=== PATIENT | female | born 1960 | race Caucasian/White ===

== ENCOUNTER 2019-11-04 07:23 | Outpatient (CLI) | payer MEDICARE, MEDICAID, SELFPAY ==
[2019-11-04 08:12] LABS: Basophils % 0.5 %; Eosinophils # 0.2 10^3/uL (0.0-0.8); Hematocrit 37.5 % (37.0-47.0); Lymphocytes # 1.3 10^3/uL (0.8-4.8); Lymphocytes % 16.4 %; Mean Corpuscular Hemoglobin 33.3 pg (28.0-34.0); Mean Corpuscular Volume 104.2 fL (81-99); Mean Platelet Volume 9.9 fL (7.4-10.4); Monocytes # 0.7 10^3/uL (0.2-0.9); Neutrophils # 5.5 10^3/uL (1.8-7.7); Neutrophils % 70.7 %; Nucleated Red Blood Cells % 0 %; Platelet Count 441 10^3/cmm (130-400); Red Cell Distribution Width 12.6 % (12.1-15.1); White Blood Count 7.8 10^3/uL (4.0-10.0)
[2019-11-04 08:19] LABS: Add Urine Culture? Yes; Bacteria Urine 2+; Bilirubin Urine Neg (NEGATIVE); Blood Urine 2+ (Negative); Glucose Urine UA Norm (Normal); Ketones Urine Negative (Negative); Leukocyte Esterase Urine 2+ (Negative); Nitrate Urine Positive (Negative); Protein Urine Trace (Negative); RBC Urine 0-4 /hpf (0-2); Specific Gravity, Urine 1.015 (1.005-1.030); Squamous Epithelial Cell Urine 0-4 (0-5); Urine Appearance Cloudy (CLEAR); Urine Color Yellow (Yellow); Urobilinogen Urine Norm (Negative); WBC Urine >100 /hpf (0-5)
[2019-11-04 08:28] LABS: Urine Creatinine 103 mg/dL (28-217)
[2019-11-04 08:30] LABS: Alanine Aminotransferase 40 U/L (0-33); Albumin Level 3.8 g/dL (3.5-5.2); Alkaline Phosphatase 77 IU/L (35-105); Amylase 150 U/L (28-100); Anion Gap 15.1 (5-19); Aspartate Amino Transferase 44 U/L (0-32); Blood Urea Nitrogen 27 mg/dL (6-20); Calcium 9.5 mg/dL (8.5-10.5); Carbon Dioxide 27 mmol/L (22-29); Chloride 101 mmol/L (98-107); Globulin 3.7 g/dL (1.3-4.6); Glomerular Filtration Rate 42.1 mL/min (90-130); Glucose 111 mg/dL (74-109); Lipase 53 U/L (13-60); Magnesium 1.9 mg/dL (1.7-2.3); Phosphorus 3.5 mg/dL (2.5-4.5); Potassium 4.1 mmol/L (3.5-5.1); Sodium 139 mmol/L (136-145); Total Bilirubin 0.3 mg/dL (0.15-1.2); Total Protein 7.5 g/dL (6.6-8.7); Uric Acid 5.2 mg/dL (2.4-5.7)
[2019-11-04 08:51] LABS: UPRO/UCREAT Ratio 0.35 mg/mg CR; Urine Protein Random 36 mg/dL
[2019-11-04 09:01] LABS: Estmated Average Glucose 100; Hemoglobin A1C 5.1 % (4.0-6.0)
== END 2019-11-04 07:24 | disposition home or self-care (01) ==
LOC: LAB 07:30
PROVIDERS: Visit Provider Specialist
DX: D89.9 Disorder involving the immune mechanism, unspecified (principal); Z94.0 Kidney transplant status; Z94.83 Pancreas transplant status; Z79.899 Other long term (current) drug therapy
CPT/HCPCS: 36415; 80053; 80197; 81001; 82150; 82570; 83036; 83690; 83735; 84100; 84156; 84550; 85025; 87077; 87086; 87186

== ENCOUNTER 2020-01-09 07:12 | Outpatient (CLI) | payer MEDICARE, MEDICAID, SELFPAY ==
[2020-01-09 08:09] LABS: Basophils # 0.1 10^3/uL (0.0-0.1); Basophils % 0.8 %; Eosinophils # 0.2 10^3/uL (0.0-0.8); Eosinophils % 3.4 %; Hematocrit 37.8 % (37.0-47.0); Lymphocytes # 1.4 10^3/uL (0.8-4.8); Lymphocytes % 22.6 %; Mean Corpuscular HGB Conc 31.7 g/dL (30.0-36.0); Mean Corpuscular Hemoglobin 32.4 pg (28.0-34.0); Mean Corpuscular Volume 102.2 fL (81-99); Mean Platelet Volume 10.9 fL (7.4-10.4); Monocytes # 0.6 10^3/uL (0.2-0.9); Monocytes % 9.7 %; Neutrophils % 63.3 %; Nucleated Red Blood Cells % 0 %; Platelet Count 323 10^3/cmm (130-400); Red Cell Distribution Width 14.1 % (12.1-15.1); White Blood Count 6.4 10^3/uL (4.0-10.0)
[2020-01-09 08:12] LABS: Alanine Aminotransferase 48 U/L (0-33); Alkaline Phosphatase 67 IU/L (35-105); Amylase 151 U/L (28-100); Anion Gap 10.6 (5-19); Aspartate Amino Transferase 54 U/L (0-32); Blood Urea Nitrogen 23 mg/dL (6-20); Calcium 9.5 mg/dL (8.5-10.5); Carbon Dioxide 31 mmol/L (22-29); Chloride 103 mmol/L (98-107); Globulin 3.3 g/dL (1.3-4.6); Glomerular Filtration Rate 56.9 mL/min (90-130); Glucose 96 mg/dL (65-115); Lipase 95 U/L (13-60); Osmolality Calculated 289 mOsm/kg (285-295); Phosphorus 3.3 mg/dL (2.5-4.5); Potassium 3.6 mmol/L (3.5-5.1); Sodium 141 mmol/L (136-145); Total Bilirubin 0.3 mg/dL (0.15-1.2); Total Protein 7.3 g/dL (6.6-8.7); Uric Acid 3.5 mg/dL (2.4-5.7)
[2020-01-09 08:14] LABS: Estmated Average Glucose 97
[2020-01-09 08:25] LABS: Urine Creatinine 39 mg/dL (28-217)
[2020-01-09 08:40] LABS: UPRO/UCREAT Ratio 0.64 mg/mg CR; Urine Protein Random 25 mg/dL
[2020-01-09 08:47] LABS: Bilirubin Urine Neg (NEGATIVE); Blood Urine Neg (Negative); Glucose Urine UA Norm (Normal); Ketones Urine Negative (Negative); Leukocyte Esterase Urine Negative (Negative); Nitrate Urine Negative (Negative); Protein Urine Neg (Negative); Specific Gravity, Urine 1.005 (1.005-1.030); Squamous Epithelial Cell Urine 0-4 (0-5); Urine Appearance Clear (CLEAR); Urine Color Yellow (Yellow); Urobilinogen Urine Norm (Negative); WBC Urine RARE /hpf (0-5); pH Urine 7 (5-7)
[2020-01-09 08:48] LABS: Add Urine Culture? No
== END 2020-01-09 07:13 | disposition home or self-care (01) ==
LOC: LAB 07:16
PROVIDERS: Visit Provider Specialist
DX: D89.9 Disorder involving the immune mechanism, unspecified (principal); Z94.0 Kidney transplant status; Z94.83 Pancreas transplant status; Z79.899 Other long term (current) drug therapy
CPT/HCPCS: 36415; 80053; 80197; 81001; 82150; 82570; 83036; 83690; 83735; 84100; 84156; 84550; 85025

== ENCOUNTER 2020-01-23 07:15 | Outpatient (CLI) | payer MEDICARE, MEDICAID, SELFPAY ==
[2020-01-23 07:52] LABS: Hematocrit 39.7 % (37.0-47.0); Hemoglobin 12.6 g/dL (11.5-15.3); Mean Corpuscular HGB Conc 31.7 g/dL (30.0-36.0); Mean Corpuscular Hemoglobin 32.6 pg (28.0-34.0); Mean Corpuscular Volume 102.6 fL (81-99); Mean Platelet Volume 10.5 fL (7.4-10.4); Platelet Count 315 10^3/cmm (130-400); Red Blood Count 3.87 10^6/uL (4.1-5.3); Red Cell Distribution Width 13.9 % (12.1-15.1); White Blood Count 5.7 10^3/uL (4.0-10.0)
[2020-01-23 08:04] LABS: Alanine Aminotransferase 60 U/L (0-33); Albumin Level 4.1 g/dL (3.5-5.2); Alkaline Phosphatase 72 IU/L (35-105); Amylase 169 U/L (28-100); Anion Gap 12.8 (5-19); Aspartate Amino Transferase 59 U/L (0-32); Blood Urea Nitrogen 27 mg/dL (6-20); Calcium 9.3 mg/dL (8.5-10.5); Carbon Dioxide 28 mmol/L (22-29); Chloride 102 mmol/L (98-107); Glomerular Filtration Rate 46.1 mL/min (90-130); Glucose 97 mg/dL (65-115); Lipase 100 U/L (13-60); Magnesium 2.3 mg/dL (1.7-2.3); Osmolality Calculated 285 mOsm/kg (285-295); Potassium 3.8 mmol/L (3.5-5.1); Sodium 139 mmol/L (136-145); Total Bilirubin 0.4 mg/dL (0.15-1.2); Total Protein 7.1 g/dL (6.6-8.7); Uric Acid 4.2 mg/dL (2.4-5.7)
[2020-01-23 08:13] LABS: Urine Creatinine 20 mg/dL (28-217); Urine Protein Random 12 mg/dL
[2020-01-23 08:34] LABS: Estmated Average Glucose 94; Hemoglobin A1C 4.9 % (4.0-6.0)
[2020-01-23 08:42] LABS: Bilirubin Urine Neg (NEGATIVE); Blood Urine Neg (Negative); Glucose Urine UA Norm (Normal); Ketones Urine Negative (Negative); Leukocyte Esterase Urine Negative (Negative); Nitrate Urine Negative (Negative); Protein Urine Neg (Negative); Specific Gravity, Urine 1.005 (1.005-1.030); Squamous Epithelial Cell Urine RARE (0-5); Urine Appearance Clear (CLEAR); Urine Color Colorless (Yellow); Urobilinogen Urine Norm (Negative); pH Urine 6.5 (5-7)
[2020-01-23 08:43] LABS: Add Urine Culture? No; Bacteria Urine TRACE
[2020-01-23 09:02] LABS: Absolute Segmented Neutrophil 3.3 10/cmm (1.6-7.1); Band Neutrophils Absolute 0.2 10^3/cmm (0.0-1.2); Eosinophils 1 %; Lymphocytes 32 %; Monocytes Absolute 0.3 10^3/cmm (0.1-0.6); Platelet Estimate Normal (Normal); Segmented Neutrophils 59 %; Total Cells Counted 100 (0-100)
== END 2020-01-23 07:16 | disposition home or self-care (01) ==
LOC: LAB 07:16
PROVIDERS: Visit Provider Specialist
DX: D89.9 Disorder involving the immune mechanism, unspecified (principal); Z94.0 Kidney transplant status; Z94.83 Pancreas transplant status; Z79.899 Other long term (current) drug therapy
CPT/HCPCS: 80053; 80197; 81001; 82150; 82570; 83036; 83690; 83735; 84100; 84156; 84550; 85007; 85027

== ENCOUNTER 2020-02-28 07:11 | Outpatient (CLI) | payer MEDICARE, MEDICAID, SELFPAY ==
[2020-02-28 07:54] LABS: Add Urine Microscopic? NO
[2020-02-28 07:56] LABS: Hematocrit 38.8 % (37.0-47.0); Hemoglobin 12.6 g/dL (11.5-15.3); Mean Corpuscular HGB Conc 32.5 g/dL (30.0-36.0); Mean Corpuscular Hemoglobin 32.8 pg (28.0-34.0); Mean Platelet Volume 10.5 fL (7.4-10.4); Platelet Count 312 10^3/cmm (130-400); Red Blood Count 3.84 10^6/uL (4.1-5.3); Red Cell Distribution Width 13.1 % (12.1-15.1); White Blood Count 5.4 10^3/uL (4.0-10.0)
[2020-02-28 08:29] LABS: Absolute Eosinophils 0.4 10^3/cmm (0.0-0.7); Absolute Segmented Neutrophil 2.3 10/cmm (1.6-7.1); Band Neutrophils Absolute 0.3 10^3/cmm (0.0-1.2); Basophils Absolute 0.1 10^3/cmm (0.0-0.2); Eosinophils 8 %; Lymphocytes 36 %; Monocytes Absolute 0.3 10^3/cmm (0.1-0.6); Platelet Estimate Normal (Normal); Segmented Neutrophils 43 %; Total Cells Counted 100 (0-100)
[2020-02-28 08:29] LABS: Add Urine Culture? No; Bacteria Urine TRACE; Bilirubin Urine Neg (NEGATIVE); Blood Urine Neg (Negative); Glucose Urine UA Norm (Normal); Ketones Urine Negative (Negative); Leukocyte Esterase Urine Negative (Negative); Nitrate Urine Negative (Negative); Protein Urine Neg (Negative); Urine Appearance Clear (CLEAR); Urine Color Straw (Yellow); Urobilinogen Urine Norm (Negative)
[2020-02-28 08:34] LABS: Urine Creatinine 40 mg/dL (28-217); Urine Protein Random 18 mg/dL
[2020-02-28 08:36] LABS: UPRO/UCREAT Ratio 0.45 mg/mg CR
[2020-02-28 08:36] LABS: Alanine Aminotransferase 83 U/L (0-33); Alkaline Phosphatase 86 IU/L (35-105); Amylase 229 U/L (28-100); Anion Gap 15.2 (5-19); Aspartate Amino Transferase 76 U/L (0-32); Blood Urea Nitrogen 33 mg/dL (6-20); Calcium 10.3 mg/dL (8.5-10.5); Carbon Dioxide 26 mmol/L (22-29); Chloride 103 mmol/L (98-107); Globulin 3.6 g/dL (1.3-4.6); Glomerular Filtration Rate 46.1 mL/min (90-130); Glucose 95 mg/dL (65-115); Lipase 175 U/L (13-60); Magnesium 1.9 mg/dL (1.7-2.3); Osmolality Calculated 287 mOsm/kg (285-295); Phosphorus 4.3 mg/dL (2.5-4.5); Potassium 4.2 mmol/L (3.5-5.1); Sodium 140 mmol/L (136-145); Total Bilirubin 0.3 mg/dL (0.15-1.2); Total Protein 7.6 g/dL (6.6-8.7); Uric Acid 4.9 mg/dL (2.4-5.7)
[2020-02-28 08:42] LABS: Estmated Average Glucose 117; Hemoglobin A1C 5.7 % (4.0-6.0)
== END 2020-02-28 07:12 | disposition home or self-care (01) ==
LOC: LAB 07:18
PROVIDERS: Visit Provider Specialist
DX: D89.9 Disorder involving the immune mechanism, unspecified (principal); Z94.0 Kidney transplant status; Z94.83 Pancreas transplant status; Z79.899 Other long term (current) drug therapy
CPT/HCPCS: 80053; 80197; 81001; 81003; 82150; 82570; 83036; 83690; 83735; 84100; 84156; 84550; 85007; 85027

== ENCOUNTER 2020-03-27 07:10 | Outpatient (CLI) | payer MEDICARE, MEDICAID, SELFPAY ==
[2020-03-27 08:17] LABS: Add Urine Microscopic? NO
[2020-03-27 08:50] LABS: Bilirubin Urine Neg (NEGATIVE); Blood Urine Neg (Negative); Glucose Urine UA Norm (Normal); Ketones Urine Negative (Negative); Leukocyte Esterase Urine Negative (Negative); Nitrate Urine Negative (Negative); Protein Urine Neg (Negative); Specific Gravity, Urine 1.005 (1.005-1.030); Urine Appearance Clear (CLEAR); Urine Color Straw (Yellow); Urobilinogen Urine Norm (Negative); pH Urine 6.5 (5-7)
[2020-03-27 08:55] LABS: Basophils # 0.1 10^3/uL (0.0-0.1); Basophils % 1.3 %; Eosinophils # 0.4 10^3/uL (0.0-0.8); Eosinophils % 6.9 %; Hematocrit 37.5 % (37.0-47.0); Hemoglobin 12.3 g/dL (11.5-15.3); Lymphocytes # 1.5 10^3/uL (0.8-4.8); Mean Corpuscular HGB Conc 32.8 g/dL (30.0-36.0); Mean Corpuscular Hemoglobin 33.2 pg (28.0-34.0); Mean Corpuscular Volume 101.1 fL (81-99); Mean Platelet Volume 11.5 fL (7.4-10.4); Monocytes # 0.7 10^3/uL (0.2-0.9); Monocytes % 10.8 %; Neutrophils # 3.7 10^3/uL (1.8-7.7); Neutrophils % 57.8 %; Nucleated Red Blood Cells % 0 %; Platelet Count 266 10^3/cmm (130-400); Red Blood Count 3.71 10^6/uL (4.1-5.3); Red Cell Distribution Width 13.3 % (12.1-15.1); White Blood Count 6.4 10^3/uL (4.0-10.0)
[2020-03-27 09:05] LABS: Alanine Aminotransferase 61 U/L (0-33); Alkaline Phosphatase 76 IU/L (35-105); Amylase 295 U/L (28-100); Aspartate Amino Transferase 63 U/L (0-32); Blood Urea Nitrogen 21 mg/dL (6-20); Calcium 9.6 mg/dL (8.5-10.5); Carbon Dioxide 29 mmol/L (22-29); Chloride 102 mmol/L (98-107); Globulin 3.3 g/dL (1.3-4.6); Glomerular Filtration Rate 56.9 mL/min (90-130); Glucose 98 mg/dL (65-115); Lipase 264 U/L (13-60); Magnesium 1.9 mg/dL (1.7-2.3); Osmolality Calculated 287 mOsm/kg (285-295); Phosphorus 3.8 mg/dL (2.5-4.5); Sodium 140 mmol/L (136-145); Total Bilirubin 0.3 mg/dL (0.15-1.2); Total Protein 7.3 g/dL (6.6-8.7); Uric Acid 3.7 mg/dL (2.4-5.7)
[2020-03-27 09:08] LABS: Urine Creatinine 24 mg/dL (28-217); Urine Protein Random 12 mg/dL
[2020-03-27 09:14] LABS: Estmated Average Glucose 103; Hemoglobin A1C 5.2 % (4.0-6.0)
[2020-03-27 09:23] LABS: Hepatitis A Antibody IgM Non-Reactive (Nonreactive); Hepatitis B Core IgM Non-Reactive (Nonreactive); Hepatitis B Surface Antigen Non-Reactive (Nonreactive)
[2020-03-27 09:47] LABS: Miscellaneous Test See Scanned Lab Rpt
[2020-03-27 10:27] LABS: Hepatitis C Virus Antibody Reactive (Nonreactive)
[2020-03-31 06:53] LABS: C-Peptide 2.37 ng/mL (0.80-3.85)
[2020-04-02 23:20] LABS: CMV DNA By PCR <200 IU/mL; CMV DNA, QN PCR <2.30 Log IU/mL; SOURCE SERUM
[2020-04-04 01:21] LABS: BK VIRUS DNA, QN PCR NO DNA DETECTED copies/mL; SOURCE PLASMA
== END 2020-03-27 07:11 | disposition home or self-care (01) ==
LOC: LAB 07:14
PROVIDERS: Visit Provider Specialist
DX: Z94.0 Kidney transplant status (principal); Z94.83 Pancreas transplant status; Z79.899 Other long term (current) drug therapy; Z48.298 Encounter for aftercare following other organ transplant; B25.8 Other cytomegaloviral diseases; B27.90 Infectious mononucleosis, unspecified without complication; B34.9 Viral infection, unspecified; R79.89 Other specified abnormal findings of blood chemistry; B17.2 Acute hepatitis E
CPT/HCPCS: 36415; 80053; 80074; 80197; 81003; 82150; 82570; 83036; 83690; 83735; 84100; 84156; 84550; 84681; 85025; 87496; 87798

== ENCOUNTER 2020-04-21 08:56 | Outpatient (CLI) | payer MEDICARE, MEDICAID, SELFPAY ==
[2020-04-21 10:12] LABS: Hematocrit 36.1 % (37.0-47.0); Hemoglobin 11.6 g/dL (11.5-15.3); Mean Corpuscular HGB Conc 32.1 g/dL (30.0-36.0); Mean Corpuscular Hemoglobin 32.4 pg (28.0-34.0); Mean Corpuscular Volume 100.8 fL (81-99); Mean Platelet Volume 10.6 fL (7.4-10.4); Platelet Count 279 10^3/cmm (130-400); Red Blood Count 3.58 10^6/uL (4.1-5.3); Red Cell Distribution Width 13.3 % (12.1-15.1); White Blood Count 5.9 10^3/uL (4.0-10.0)
[2020-04-21 10:37] LABS: Alanine Aminotransferase 55 U/L (0-33); Albumin Level 3.9 g/dL (3.5-5.2); Alkaline Phosphatase 74 IU/L (35-105); Amylase 224 U/L (28-100); Anion Gap 12.1 (5-19); Aspartate Amino Transferase 54 U/L (0-32); Blood Urea Nitrogen 24 mg/dL (6-20); Calcium 9.4 mg/dL (8.5-10.5); Carbon Dioxide 26 mmol/L (22-29); Chloride 103 mmol/L (98-107); Globulin 3.3 g/dL (1.3-4.6); Glucose 92 mg/dL (65-115); Lipase 170 U/L (13-60); Magnesium 2.2 mg/dL (1.7-2.3); Osmolality Calculated 280 mOsm/kg (285-295); Phosphorus 4.3 mg/dL (2.5-4.5); Potassium 4.1 mmol/L (3.5-5.1); Sodium 137 mmol/L (136-145); Total Bilirubin 0.3 mg/dL (0.15-1.2); Total Protein 7.2 g/dL (6.6-8.7)
[2020-04-21 10:38] LABS: Add Urine Culture? No; Bacteria Urine TRACE; Bilirubin Urine Neg (NEGATIVE); Blood Urine Neg (Negative); Glucose Urine UA Norm (Normal); Ketones Urine Negative (Negative); Leukocyte Esterase Urine Negative (Negative); Nitrate Urine Negative (Negative); Protein Urine Neg (Negative); Squamous Epithelial Cell Urine 0-4 (0-5); Urine Appearance Clear (CLEAR); Urine Color Yellow (Yellow); Urobilinogen Urine Norm (Negative)
[2020-04-21 10:40] LABS: Urine Creatinine 36 mg/dL (28-217); Urine Protein Random 16 mg/dL
[2020-04-21 10:49] LABS: Estmated Average Glucose 94; Hemoglobin A1C 4.9 % (4.0-6.0)
[2020-04-21 10:50] LABS: UPRO/UCREAT Ratio 0.44 mg/mg CR
[2020-04-21 10:59] LABS: Absolute Segmented Neutrophil 2.4 10/cmm (1.6-7.1); Segmented Neutrophils 41 %; Total Cells Counted 100 (0-100)
[2020-04-21 11:00] LABS: Absolute Eosinophils 0.7 10^3/cmm (0.0-0.7); Band Neutrophils Absolute 0.8 10^3/cmm (0.0-1.2); Basophils Absolute 0.1 10^3/cmm (0.0-0.2); Eosinophils 13 %; Lymphocytes 22 %; Monocytes Absolute 0.5 10^3/cmm (0.1-0.6)
[2020-04-21 11:05] LABS: Absolute Neutrophil 3.2 10^3/cmm (1.4-6.5); Platelet Estimate Normal (Normal)
[2020-04-27 14:35] LABS: HEP C RNA Viral Load Quant 1760000 IU/mL (NOT DETECTED); HEP C RNA Viral Load Quant 6.25 Log IU/mL (NOT DETECTED)
== END 2020-04-21 08:57 | disposition home or self-care (01) ==
LOC: LAB 09:04
PROVIDERS: PCP Specialist; Visit Provider Specialist
DX: R79.89 Other specified abnormal findings of blood chemistry (principal); D89.9 Disorder involving the immune mechanism, unspecified; Z94.0 Kidney transplant status; Z94.83 Pancreas transplant status; Z79.899 Other long term (current) drug therapy
CPT/HCPCS: 80053; 80197; 81001; 82150; 82570; 83036; 83690; 83735; 84100; 84156; 84550; 85007; 85027; 87522

== ENCOUNTER 2020-05-20 07:07 | Outpatient (CLI) | payer MEDICARE, MEDICAID, SELFPAY ==
[2020-05-20 08:22] LABS: Mean Corpuscular HGB Conc 32.4 g/dL (30.0-36.0); Mean Corpuscular Hemoglobin 32.2 pg (28.0-34.0); Mean Corpuscular Volume 99.2 fL (81-99); Platelet Count 267 10^3/cmm (130-400); Red Blood Count 3.73 10^6/uL (4.1-5.3); Red Cell Distribution Width 13.1 % (12.1-15.1); White Blood Count 7.5 10^3/uL (4.0-10.0)
[2020-05-20 08:58] LABS: Estmated Average Glucose 97
[2020-05-20 09:09] LABS: Add Urine Microscopic? YES; Bilirubin Urine Neg (NEGATIVE); Blood Urine Neg (Negative); Glucose Urine UA Norm (Normal); Ketones Urine Negative (Negative); Leukocyte Esterase Urine Negative (Negative); Nitrate Urine Negative (Negative); Protein Urine Neg (Negative); Urine Appearance Clear (CLEAR); Urine Color Colorless (Yellow); Urobilinogen Urine Norm (Negative)
[2020-05-20 09:12] LABS: Add Urine Culture? No; Bacteria Urine TRACE; Squamous Epithelial Cell Urine RARE (0-5)
[2020-05-20 09:22] LABS: Urine Creatinine 20 mg/dL (28-217); Urine Protein Random 8 mg/dL
[2020-05-20 10:07] LABS: Absolute Eosinophils 0.4 10^3/cmm (0.0-0.7); Absolute Segmented Neutrophil 4.8 10/cmm (1.6-7.1); Eosinophils 6 %; Lymphocytes 19 %; Monocytes Absolute 0.8 10^3/cmm (0.1-0.6); Segmented Neutrophils 64 %; Total Cells Counted 100 (0-100)
[2020-05-20 10:08] LABS: Platelet Estimate Normal (Normal)
[2020-05-20 10:26] LABS: Alanine Aminotransferase 60 U/L (0-33); Albumin Level 4.1 g/dL (3.5-5.2); Alkaline Phosphatase 68 IU/L (35-105); Amylase 440 U/L (28-100); Anion Gap 13.6 (5-19); Aspartate Amino Transferase 65 U/L (0-32); Blood Urea Nitrogen 19 mg/dL (6-20); Carbon Dioxide 25 mmol/L (22-29); Chloride 102 mmol/L (98-107); Globulin 3.4 g/dL (1.3-4.6); Glomerular Filtration Rate 56.9 mL/min (90-130); Glucose 98 mg/dL (65-115); Magnesium 1.9 mg/dL (1.7-2.3); Osmolality Calculated 280 mOsm/kg (285-295); Phosphorus 4.4 mg/dL (2.5-4.5); Potassium 3.6 mmol/L (3.5-5.1); Sodium 137 mmol/L (136-145); Total Bilirubin 0.3 mg/dL (0.15-1.2); Total Protein 7.5 g/dL (6.6-8.7); Uric Acid 3.8 mg/dL (2.4-5.7)
[2020-05-20 10:33] LABS: Lipase 621 U/L (13-60)
== END 2020-05-20 07:08 | disposition home or self-care (01) ==
LOC: LAB 07:10
PROVIDERS: Visit Provider Specialist
DX: Z94.0 Kidney transplant status (principal); Z79.899 Other long term (current) drug therapy; D89.9 Disorder involving the immune mechanism, unspecified; Z94.83 Pancreas transplant status; E10.29 Type 1 diabetes mellitus with other diabetic kidney complication; R80.8 Other proteinuria
CPT/HCPCS: 80053; 80197; 81001; 82150; 82570; 83036; 83690; 83735; 84100; 84156; 84550; 85007; 85027

== ENCOUNTER 2020-06-09 07:06 | Outpatient (CLI) | payer MEDICARE, MEDICAID, SELFPAY ==
[2020-06-09 07:54] LABS: Basophils # 0.1 10^3/uL (0.0-0.1); Basophils % 1.3 %; Eosinophils # 1.7 10^3/uL (0.0-0.8); Hemoglobin 11.3 g/dL (11.5-15.3); Lymphocytes # 2.1 10^3/uL (0.8-4.8); Lymphocytes % 26.9 %; Mean Corpuscular HGB Conc 32.3 g/dL (30.0-36.0); Mean Corpuscular Hemoglobin 32.7 pg (28.0-34.0); Mean Corpuscular Volume 101.2 fL (81-99); Mean Platelet Volume 10.8 fL (7.4-10.4); Monocytes # 0.7 10^3/uL (0.2-0.9); Monocytes % 9.3 %; Neutrophils # 3.18 10^3/uL (1.8-7.7); Neutrophils % 40.4 %; Nucleated Red Blood Cells % 0 %; Platelet Count 278 10^3/cmm (130-400); Red Blood Count 3.46 10^6/uL (4.1-5.3); Red Cell Distribution Width 13.6 % (12.1-15.1); White Blood Count 7.9 10^3/uL (4.0-10.0)
[2020-06-09 08:03] LABS: Add Urine Culture? No; Bacteria Urine TRACE; Bilirubin Urine Neg (NEGATIVE); Blood Urine Neg (Negative); Glucose Urine UA Norm (Normal); Ketones Urine Negative (Negative); Leukocyte Esterase Urine Negative (Negative); Nitrate Urine Negative (Negative); Protein Urine Neg (Negative); Specific Gravity, Urine 1.005 (1.005-1.030); Squamous Epithelial Cell Urine 15-25 (0-5); Urine Appearance SL Hazy (CLEAR); Urine Color Straw (Yellow); Urobilinogen Urine Norm (Negative); WBC Urine 0-4 /hpf (0-5)
[2020-06-09 08:13] LABS: Urine Creatinine 37 mg/dL (28-217); Urine Protein Random 10 mg/dL
[2020-06-09 08:16] LABS: Alanine Aminotransferase 53 U/L (0-33); Albumin Level 3.8 g/dL (3.5-5.2); Alkaline Phosphatase 66 IU/L (35-105); Amylase 470 U/L (28-100); Anion Gap 15.1 (5-19); Aspartate Amino Transferase 47 U/L (0-32); Blood Urea Nitrogen 21 mg/dL (6-20); Calcium 8.7 mg/dL (8.5-10.5); Carbon Dioxide 23 mmol/L (22-29); Chloride 104 mmol/L (98-107); Globulin 3.3 g/dL (1.3-4.6); Glucose 95 mg/dL (65-115); Magnesium 1.9 mg/dL (1.7-2.3); Osmolality Calculated 282 mOsm/kg (285-295); Phosphorus 3.5 mg/dL (2.5-4.5); Potassium 4.1 mmol/L (3.5-5.1); Sodium 138 mmol/L (136-145); Total Bilirubin 0.3 mg/dL (0.15-1.2); Total Protein 7.1 g/dL (6.6-8.7); Uric Acid 4.6 mg/dL (2.4-5.7)
[2020-06-09 08:25] LABS: UPRO/UCREAT Ratio 0.27 mg/mg CR
[2020-06-09 08:36] LABS: Lipase 452 U/L (13-60)
[2020-06-09 08:52] LABS: Estmated Average Glucose 97
== END 2020-06-09 07:07 | disposition home or self-care (01) ==
LOC: LAB 07:08
PROVIDERS: Visit Provider Specialist
DX: E10.29 Type 1 diabetes mellitus with other diabetic kidney complication (principal); Z94.0 Kidney transplant status; Z79.899 Other long term (current) drug therapy; D89.9 Disorder involving the immune mechanism, unspecified; Z94.83 Pancreas transplant status; R80.8 Other proteinuria
CPT/HCPCS: 36415; 80053; 80197; 81001; 82150; 82570; 83036; 83690; 83735; 84100; 84156; 84550; 85025

== ENCOUNTER 2020-06-25 07:11 | Outpatient (CLI) | payer MEDICARE, MEDICAID, SELFPAY ==
[2020-06-25 09:06] LABS: Hematocrit 37.6 % (37.0-47.0); Hemoglobin 12.1 g/dL (11.5-15.3); Mean Corpuscular HGB Conc 32.2 g/dL (30.0-36.0); Mean Corpuscular Hemoglobin 32.8 pg (28.0-34.0); Mean Corpuscular Volume 101.9 fL (81-99); Platelet Count 303 10^3/cmm (130-400); Red Blood Count 3.69 10^6/uL (4.1-5.3); Red Cell Distribution Width 13.5 % (12.1-15.1); White Blood Count 8.4 10^3/uL (4.0-10.0)
[2020-06-25 09:24] LABS: Alanine Aminotransferase 63 U/L (0-33); Albumin Level 4.3 g/dL (3.5-5.2); Alkaline Phosphatase 73 IU/L (35-105); Amylase 498 U/L (28-100); Anion Gap 14.1 (5-19); Aspartate Amino Transferase 59 U/L (0-32); Blood Urea Nitrogen 20 mg/dL (6-20); Carbon Dioxide 26 mmol/L (22-29); Chloride 102 mmol/L (98-107); Globulin 3.3 g/dL (1.3-4.6); Glomerular Filtration Rate 56.9 mL/min (90-130); Glucose 89 mg/dL (65-115); Magnesium 1.8 mg/dL (1.7-2.3); Osmolality Calculated 288 mOsm/kg (285-295); Phosphorus 3.4 mg/dL (2.5-4.5); Potassium 4.1 mmol/L (3.5-5.1); Sodium 138 mmol/L (136-145); Total Bilirubin 0.4 mg/dL (0.15-1.2); Total Protein 7.6 g/dL (6.6-8.7); Uric Acid 4.1 mg/dL (2.4-5.7)
[2020-06-25 09:27] LABS: Estmated Average Glucose 100; Hemoglobin A1C 5.1 % (4.0-6.0)
[2020-06-25 09:32] LABS: Lipase 569 U/L (13-60)
[2020-06-25 09:33] LABS: Bilirubin Urine Neg (Negative); Blood Urine Neg (Negative); Glucose Urine UA Norm (Normal); Ketones Urine Negative (Negative); Leukocyte Esterase Urine Negative (Negative); Nitrate Urine Negative (Negative); Protein Urine Neg (Negative); Specific Gravity, Urine 1.005 (1.005-1.030); Urine Appearance Clear (CLEAR); Urine Color Colorless (Yellow); Urobilinogen Urine Norm (Negative)
[2020-06-25 09:36] LABS: Add Urine Culture? No; Bacteria Urine TRACE /hpf; WBC Urine 0-4 /hpf (0-5)
[2020-06-25 09:44] LABS: Urine Creatinine 37 mg/dL (28-217); Urine Protein Random 9 mg/dL
[2020-06-25 09:45] LABS: Absolute Eosinophils 1.2 10^3/cmm (0.0-0.7); Absolute Segmented Neutrophil 3.8 10/cmm (1.6-7.1); Band Neutrophils Absolute 0.7 10^3/cmm (0.0-1.2); Eosinophils 15 %; Lymphocytes 25 %; Monocytes Absolute 0.6 10^3/cmm (0.1-0.6); Segmented Neutrophils 45 %; Total Cells Counted 100 (0-100)
[2020-06-25 09:46] LABS: Absolute Neutrophil 4.5 10^3/cmm (1.4-6.5); Platelet Estimate Normal (Normal)
[2020-06-25 09:46] LABS: UPRO/UCREAT Ratio 0.24 mg/mg CR
== END 2020-06-25 07:12 | disposition home or self-care (01) ==
LOC: LAB 07:15
PROVIDERS: Visit Provider Specialist
DX: Z94.0 Kidney transplant status; Z79.899 Other long term (current) drug therapy; D89.9 Disorder involving the immune mechanism, unspecified; Z94.83 Pancreas transplant status; E10.29 Type 1 diabetes mellitus with other diabetic kidney complication; R80.8 Other proteinuria
CPT/HCPCS: 80053; 80197; 81001; 82150; 82570; 83036; 83690; 83735; 84100; 84156; 84550; 85007; 85027

== ENCOUNTER 2020-07-09 06:56 | Outpatient (CLI) | payer MEDICARE, MEDICAID, SELFPAY ==
[2020-07-09 07:50] LABS: Alanine Aminotransferase 49 U/L (0-33); Albumin Level 4.2 g/dL (3.5-5.2); Alkaline Phosphatase 69 IU/L (35-105); Aspartate Amino Transferase 49 U/L (0-32); Blood Urea Nitrogen 19 mg/dL (6-20); Calcium 9.1 mg/dL (8.5-10.5); Carbon Dioxide 25 mmol/L (22-29); Chloride 104 mmol/L (98-107); Globulin 3.2 g/dL (1.3-4.6); Glomerular Filtration Rate 46.1 mL/min (90-130); Glucose 93 mg/dL (65-115); Magnesium 1.8 mg/dL (1.7-2.3); Osmolality Calculated 288 mOsm/kg (285-295); Phosphorus 3.5 mg/dL (2.5-4.5); Sodium 138 mmol/L (136-145); Total Bilirubin 0.3 mg/dL (0.15-1.2); Total Protein 7.4 g/dL (6.6-8.7); Uric Acid 4.5 mg/dL (2.4-5.7)
[2020-07-09 07:52] LABS: Basophils # 0.1 10^3/uL (0.0-0.1); Basophils % 1.2 %; Eosinophils # 1.7 10^3/uL (0.0-0.8); Eosinophils % 18.8 %; Hematocrit 36.3 % (37.0-47.0); Hemoglobin 11.9 g/dL (11.5-15.3); Lymphocytes # 1.5 10^3/uL (0.8-4.8); Mean Corpuscular HGB Conc 32.8 g/dL (30.0-36.0); Mean Corpuscular Hemoglobin 33.3 pg (28.0-34.0); Mean Corpuscular Volume 101.7 fL (81-99); Mean Platelet Volume 10.8 fL (7.4-10.4); Monocytes # 0.7 10^3/uL (0.2-0.9); Neutrophils # 5.16 10^3/uL (1.8-7.7); Neutrophils % 55.8 %; Nucleated Red Blood Cells % 0 %; Platelet Count 293 10^3/cmm (130-400); Red Blood Count 3.57 10^6/uL (4.1-5.3); Red Cell Distribution Width 13.6 % (12.1-15.1); White Blood Count 9.3 10^3/uL (4.0-10.0)
[2020-07-09 08:05] LABS: Add Urine Culture? Yes; Bacteria Urine 1+ /hpf; Bilirubin Urine Neg (Negative); Blood Urine Trace (Negative); Glucose Urine UA Norm (Normal); Ketones Urine Negative (Negative); Leukocyte Esterase Urine 2+ (Negative); Nitrate Urine Negative (Negative); Protein Urine Trace (Negative); Urine Appearance SL Hazy (CLEAR); Urine Color Yellow (Yellow); Urobilinogen Urine Norm (Negative); WBC Urine >100 /hpf (0-5)
[2020-07-09 08:16] LABS: Urine Creatinine 73 mg/dL (28-217)
[2020-07-09 08:21] LABS: UPRO/UCREAT Ratio 0.53 mg/mg CR; Urine Protein Random 39 mg/dL
[2020-07-09 11:28] LABS: Amylase 809 U/L (28-100); Anion Gap 13.1 (5-19); Lipase 1279 U/L (13-60); Potassium 4.1 mmol/L (3.5-5.1)
== END 2020-07-09 06:57 | disposition home or self-care (01) ==
LOC: LAB 06:59
PROVIDERS: Visit Provider Specialist
DX: Z94.0 Kidney transplant status (principal); Z79.899 Other long term (current) drug therapy; D89.9 Disorder involving the immune mechanism, unspecified; Z94.83 Pancreas transplant status; E10.29 Type 1 diabetes mellitus with other diabetic kidney complication; R80.8 Other proteinuria
CPT/HCPCS: 36415; 80053; 80197; 81001; 82150; 82570; 83690; 83735; 84100; 84156; 84550; 85025; 87077; 87086; 87186

== ENCOUNTER 2020-07-15 09:24 | Outpatient (CLI) | payer MEDICARE, MEDICAID, SELFPAY ==
--- NOTE | 2020-07-15 09:29 | MM_ITS ---
WS: [id number] BILATERAL SCREENING DIGITAL MAMMOGRAM WITH CAD HISTORY: SCREENING COMPARISON: 09/13/2017 and 05/02/2016 Bilateral CC and MLO views submitted. Computer aided detection analyzed. Breast composition: The breasts are extremely dense, which lowers the sensitivity of mammography. No suspicious masses, microcalcifications or architectural distortion. Benign vascular calcifications an d scattered round calcifications. MM/[place] [id number] IMPRESSION: BI-RADS: 2-Benign FOLLOW UP: 1 Year Follow-up
== END 2020-07-15 09:25 | disposition home or self-care (01) ==
LOC: RADSHAW 09:27
PROVIDERS: Visit Provider Family Medicine
DX: Z12.31 Encounter for screening mammogram for malignant neoplasm of breast (principal)
CPT/HCPCS: 77067

== ENCOUNTER 2020-07-31 06:42 | Outpatient (RCR) | payer MEDICARE, MEDICAID, SELFPAY ==
[2020-07-17 07:28] LABS: Basophils # 0.1 10^3/uL (0.0-0.1); Basophils % 0.7 %; Eosinophils # 0.7 10^3/uL (0.0-0.8); Eosinophils % 8.3 %; Hematocrit 34.4 % (37.0-47.0); Hemoglobin 11.1 g/dL (11.5-15.3); Lymphocytes # 1.1 10^3/uL (0.8-4.8); Lymphocytes % 13.2 %; Mean Corpuscular HGB Conc 32.3 g/dL (30.0-36.0); Mean Corpuscular Hemoglobin 32.8 pg (28.0-34.0); Mean Corpuscular Volume 101.8 fL (81-99); Mean Platelet Volume 10.2 fL (7.4-10.4); Monocytes # 0.8 10^3/uL (0.2-0.9); Monocytes % 9.4 %; Neutrophils # 5.83 10^3/uL (1.8-7.7); Neutrophils % 68.2 %; Nucleated Red Blood Cells % 0 %; Platelet Count 317 10^3/cmm (130-400); Red Blood Count 3.38 10^6/uL (4.1-5.3); Red Cell Distribution Width 13.3 % (12.1-15.1); White Blood Count 8.6 10^3/uL (4.0-10.0)
[2020-07-17 07:52] LABS: Alanine Aminotransferase 21 U/L (0-33); Albumin Level 3.8 g/dL (3.5-5.2); Alkaline Phosphatase 68 IU/L (35-105); Amylase 390 U/L (28-100); Anion Gap 12.7 (5-19); Aspartate Amino Transferase 31 U/L (0-32); Blood Urea Nitrogen 30 mg/dL (6-20); Calcium 9.1 mg/dL (8.5-10.5); Carbon Dioxide 25 mmol/L (22-29); Chloride 106 mmol/L (98-107); Globulin 3.2 g/dL (1.3-4.6); Glomerular Filtration Rate 56.9 mL/min (90-130); Glucose 101 mg/dL (65-115); Magnesium 1.9 mg/dL (1.7-2.3); Osmolality Calculated 294 mOsm/kg (285-295); Phosphorus 4.3 mg/dL (2.5-4.5); Potassium 4.7 mmol/L (3.5-5.1); Sodium 139 mmol/L (136-145); Total Bilirubin 0.2 mg/dL (0.15-1.2); Uric Acid 5.6 mg/dL (2.4-5.7)
[2020-07-17 07:53] LABS: Bilirubin Urine Neg (Negative); Blood Urine Neg (Negative); Glucose Urine UA Norm (Normal); Ketones Urine Negative (Negative); Nitrate Urine Positive (Negative); Protein Urine Neg (Negative); Specific Gravity, Urine 1.005 (1.005-1.030); Urine Appearance Hazy (CLEAR); Urine Color Yellow (Yellow); Urobilinogen Urine Norm (Negative); pH Urine 5 (5-7)
[2020-07-17 07:54] LABS: Leukocyte Esterase Urine 2+ (Negative); RBC Urine 0-4 /hpf (0-2); WBC Urine >100 /hpf (0-5)
[2020-07-17 07:55] LABS: Add Urine Culture? Yes; Bacteria Urine 2+ /hpf; Squamous Epithelial Cell Urine 0-4 /hpf (0-5)
[2020-07-17 08:01] LABS: Lipase 538 U/L (13-60)
[2020-07-17 08:03] LABS: Urine Creatinine 41 mg/dL (28-217); Urine Protein Random 15 mg/dL
[2020-07-17 08:13] LABS: UPRO/UCREAT Ratio 0.37 mg/mg CR
[2020-07-24 07:30] LABS: Basophils # 0.1 10^3/uL (0.0-0.1); Basophils % 0.6 %; Eosinophils # 0.8 10^3/uL (0.0-0.8); Eosinophils % 8.4 %; Hematocrit 35.2 % (37.0-47.0); Hemoglobin 11.6 g/dL (11.5-15.3); Lymphocytes # 1.4 10^3/uL (0.8-4.8); Lymphocytes % 15.3 %; Mean Corpuscular Hemoglobin 33.2 pg (28.0-34.0); Mean Corpuscular Volume 100.9 fL (81-99); Mean Platelet Volume 9.8 fL (7.4-10.4); Monocytes # 0.8 10^3/uL (0.2-0.9); Monocytes % 8.1 %; Neutrophils # 6.29 10^3/uL (1.8-7.7); Neutrophils % 67.4 %; Nucleated Red Blood Cells % 0 %; Platelet Count 335 10^3/cmm (130-400); Red Blood Count 3.49 10^6/uL (4.1-5.3); Red Cell Distribution Width 13.1 % (12.1-15.1); White Blood Count 9.3 10^3/uL (4.0-10.0)
[2020-07-24 07:44] LABS: Add Urine Culture? Yes; Bacteria Urine 1+ /hpf; Bilirubin Urine Neg (Negative); Blood Urine 2+ (Negative); Glucose Urine UA Norm (Normal); Ketones Urine Negative (Negative); Leukocyte Esterase Urine 2+ (Negative); Nitrate Urine Negative (Negative); Protein Urine Neg (Negative); Squamous Epithelial Cell Urine 0-4 /hpf (0-5); Urine Appearance Cloudy (CLEAR); Urine Color Yellow (Yellow); Urobilinogen Urine Norm (Negative); WBC Urine 80-100 /hpf (0-5); pH Urine 6.5 (5-7)
[2020-07-24 07:52] LABS: Alanine Aminotransferase 18 U/L (0-33); Alkaline Phosphatase 75 IU/L (35-105); Amylase 169 U/L (28-100); Anion Gap 12.1 (5-19); Aspartate Amino Transferase 26 U/L (0-32); Blood Urea Nitrogen 22 mg/dL (6-20); Calcium 9.3 mg/dL (8.5-10.5); Carbon Dioxide 27 mmol/L (22-29); Chloride 102 mmol/L (98-107); Globulin 3.2 g/dL (1.3-4.6); Glomerular Filtration Rate 56.7 mL/min (90-130); Glucose 108 mg/dL (65-115); Lipase 137 U/L (13-60); Magnesium 1.8 mg/dL (1.7-2.3); Osmolality Calculated 288 mOsm/kg (285-295); Phosphorus 3.2 mg/dL (2.5-4.5); Potassium 4.1 mmol/L (3.5-5.1); Sodium 137 mmol/L (136-145); Total Bilirubin 0.3 mg/dL (0.15-1.2); Total Protein 7.2 g/dL (6.6-8.7); Uric Acid 5.1 mg/dL (2.4-5.7)
[2020-07-24 07:55] LABS: Urine Creatinine 19 mg/dL (28-217)
[2020-07-24 07:56] LABS: UPRO/UCREAT Ratio 1.53 mg/mg CR; Urine Protein Random 29 mg/dL
[2020-07-31 07:18] LABS: Basophils # 0.1 10^3/uL (0.0-0.1); Eosinophils # 0.8 10^3/uL (0.0-0.8); Eosinophils % 10.4 %; Hematocrit 36.1 % (37.0-47.0); Hemoglobin 11.6 g/dL (11.5-15.3); Lymphocytes # 2.1 10^3/uL (0.8-4.8); Lymphocytes % 27.4 %; Mean Corpuscular HGB Conc 32.1 g/dL (30.0-36.0); Mean Corpuscular Hemoglobin 32.7 pg (28.0-34.0); Mean Corpuscular Volume 101.7 fL (81-99); Mean Platelet Volume 10.6 fL (7.4-10.4); Monocytes # 0.7 10^3/uL (0.2-0.9); Monocytes % 9.1 %; Neutrophils # 4.01 10^3/uL (1.8-7.7); Neutrophils % 51.8 %; Nucleated Red Blood Cells % 0 %; Platelet Count 314 10^3/cmm (130-400); Red Blood Count 3.55 10^6/uL (4.1-5.3); White Blood Count 7.8 10^3/uL (4.0-10.0)
[2020-07-31 07:32] LABS: Alanine Aminotransferase 17 U/L (0-33); Albumin Level 3.8 g/dL (3.5-5.2); Alkaline Phosphatase 79 IU/L (35-105); Amylase 178 U/L (28-100); Blood Urea Nitrogen 18 mg/dL (6-20); Calcium 9.6 mg/dL (8.5-10.5); Carbon Dioxide 27 mmol/L (22-29); Chloride 102 mmol/L (98-107); Globulin 3.4 g/dL (1.3-4.6); Glomerular Filtration Rate 56.7 mL/min (90-130); Glucose 110 mg/dL (65-115); Lipase 125 U/L (13-60); Magnesium 2.2 mg/dL (1.7-2.3); Osmolality Calculated 289 mOsm/kg (285-295); Phosphorus 3.8 mg/dL (2.5-4.5); Sodium 138 mmol/L (136-145); Total Bilirubin 0.3 mg/dL (0.15-1.2); Total Protein 7.2 g/dL (6.6-8.7)
[2020-07-31 07:37] LABS: Anion Gap 13.1 (5-19); Aspartate Amino Transferase 30 U/L (0-32); Potassium 4.1 mmol/L (3.5-5.1)
[2020-07-31 07:51] LABS: Add Urine Culture? Yes; Bacteria Urine 2+ /hpf; Bilirubin Urine Neg (Negative); Blood Urine Neg (Negative); Glucose Urine UA Norm (Normal); Ketones Urine Negative (Negative); Leukocyte Esterase Urine 2+ (Negative); Nitrate Urine Positive (Negative); Protein Urine Neg (Negative); Specific Gravity, Urine 1.005 (1.005-1.030); Squamous Epithelial Cell Urine 0-4 /hpf (0-5); Urine Appearance SL Hazy (CLEAR); Urine Color Yellow (Yellow); Urobilinogen Urine Norm (Negative); WBC Urine 40-55 /hpf (0-5); pH Urine 6.5 (5-7)
[2020-07-31 08:00] LABS: Urine Creatinine 23 mg/dL (28-217); Urine Protein Random 11 mg/dL
[2020-07-31 08:05] LABS: UPRO/UCREAT Ratio 0.48 mg/mg CR
== END 2020-08-08 23:59 | disposition home or self-care (01) ==
LOC: LAB 06:42
PROVIDERS: Visit Provider Specialist
DX: Z94.0 Kidney transplant status (principal); Z79.899 Other long term (current) drug therapy; D84.9 Immunodeficiency, unspecified; Z94.83 Pancreas transplant status; E10.22 Type 1 diabetes mellitus with diabetic chronic kidney disease; N18.2 Chronic kidney disease, stage 2 (mild)
CPT/HCPCS: 36415; 80053; 80197; 81001; 82150; 82570; 83690; 83735; 84100; 84156; 84550; 85025; 87077; 87086; 87186

== ENCOUNTER 2020-09-07 06:39 | Outpatient (RCR) | payer MEDICARE, MEDICAID, SELFPAY ==
[2020-08-14 15:10] LABS: Basophils # 0.1 10^3/uL (0.0-0.1); Basophils % 0.9 %; Eosinophils # 0.6 10^3/uL (0.0-0.8); Hematocrit 34.4 % (37.0-47.0); Hemoglobin 11.2 g/dL (11.5-15.3); Lymphocytes # 1.9 10^3/uL (0.8-4.8); Lymphocytes % 25.7 %; Mean Corpuscular HGB Conc 32.6 g/dL (30.0-36.0); Mean Corpuscular Hemoglobin 32.5 pg (28.0-34.0); Mean Corpuscular Volume 99.7 fL (81-99); Mean Platelet Volume 9.4 fL (7.4-10.4); Monocytes # 0.7 10^3/uL (0.2-0.9); Monocytes % 9.6 %; Neutrophils % 55.5 %; Nucleated Red Blood Cells % 0 %; Platelet Count 323 10^3/cmm (130-400); Red Blood Count 3.45 10^6/uL (4.1-5.3); Red Cell Distribution Width 13.5 % (12.1-15.1); White Blood Count 7.4 10^3/uL (4.0-10.0)
[2020-08-14 15:23] LABS: Alanine Aminotransferase 21 U/L (0-33); Albumin Level 3.8 g/dL (3.5-5.2); Alkaline Phosphatase 69 IU/L (35-105); Anion Gap 14.1 (5-19); Aspartate Amino Transferase 30 U/L (0-32); Blood Urea Nitrogen 28 mg/dL (6-20); Calcium 9.1 mg/dL (8.5-10.5); Carbon Dioxide 26 mmol/L (22-29); Chloride 101 mmol/L (98-107); Glomerular Filtration Rate 64.1 mL/min (90-130); Glucose 110 mg/dL (65-115); Osmolality Calculated 290 mOsm/kg (285-295); Potassium 4.1 mmol/L (3.5-5.1); Sodium 137 mmol/L (136-145); Total Bilirubin 0.2 mg/dL (0.15-1.2); Total Protein 6.8 g/dL (6.6-8.7)
[2020-08-17 12:58] LABS: HEP C RNA Viral Load Quant <1.18 NOT DETECTED Log IU/mL (NOT DETECTED); HEP C RNA Viral Load Quant <15 NOT DETECTED IU/mL (NOT DETECTED)
[2020-08-21 07:11] LABS: Basophils # 0.1 10^3/uL (0.0-0.1); Eosinophils # 0.5 10^3/uL (0.0-0.8); Hematocrit 37.5 % (37.0-47.0); Hemoglobin 11.9 g/dL (11.5-15.3); Lymphocytes # 1.4 10^3/uL (0.8-4.8); Lymphocytes % 25.1 %; Mean Corpuscular HGB Conc 31.7 g/dL (30.0-36.0); Mean Corpuscular Hemoglobin 32.6 pg (28.0-34.0); Mean Corpuscular Volume 102.7 fL (81-99); Mean Platelet Volume 9.8 fL (7.4-10.4); Monocytes # 0.6 10^3/uL (0.2-0.9); Monocytes % 10.1 %; Neutrophils # 3.19 10^3/uL (1.8-7.7); Neutrophils % 55.6 %; Nucleated Red Blood Cells % 0 %; Platelet Count 280 10^3/cmm (130-400); Red Blood Count 3.65 10^6/uL (4.1-5.3); Red Cell Distribution Width 13.4 % (12.1-15.1); White Blood Count 5.7 10^3/uL (4.0-10.0)
[2020-08-21 07:27] LABS: Alanine Aminotransferase 21 U/L (0-33); Alkaline Phosphatase 69 IU/L (35-105); Amylase 150 U/L (28-100); Aspartate Amino Transferase 27 U/L (0-32); Chloride 102 mmol/L (98-107); Glucose 97 mg/dL (65-115); Sodium 138 mmol/L (136-145); Uric Acid 4.5 mg/dL (2.4-5.7)
[2020-08-21 07:44] LABS: Estmated Average Glucose 88; Hemoglobin A1C 4.7 % (4.0-6.0)
[2020-08-21 07:46] LABS: Urine Creatinine 35 mg/dL (28-217)
[2020-08-21 08:15] LABS: UPRO/UCREAT Ratio 0.91 mg/mg CR; Urine Protein Random 32 mg/dL
[2020-08-21 09:26] LABS: Blood Urea Nitrogen 21 mg/dL (6-20); Calcium 9.2 mg/dL (8.5-10.5); Carbon Dioxide 25 mmol/L (22-29); Globulin 3.1 g/dL (1.3-4.6); Glomerular Filtration Rate 64.1 mL/min (90-130); Lipase 114 U/L (13-60); Magnesium 1.9 mg/dL (1.7-2.3); Osmolality Calculated 289 mOsm/kg (285-295); Phosphorus 3.7 mg/dL (2.5-4.5); Total Bilirubin 0.2 mg/dL (0.15-1.2); Total Protein 7.1 g/dL (6.6-8.7)
[2020-08-21 10:02] LABS: Add Urine Culture? No; Bacteria Urine TRACE /hpf; Bilirubin Urine Neg (Negative); Blood Urine Neg (Negative); Glucose Urine UA Norm (Normal); Ketones Urine Negative (Negative); Leukocyte Esterase Urine Negative (Negative); Nitrate Urine Negative (Negative); Protein Urine Trace (Negative); Squamous Epithelial Cell Urine 0-4 /hpf (0-5); Sulfosalicylic Acid Urine Negative (Negative); Urine Appearance Clear (CLEAR); Urine Color Yellow (Yellow); Urobilinogen Urine Norm (Negative); pH Urine 8 (5-7)
[2020-09-07 07:42] LABS: Urine Appearance Clear (CLEAR); Urine Color Yellow (Yellow); pH Urine 7 (5-7)
[2020-09-07 07:43] LABS: Bilirubin Urine Neg (Negative); Blood Urine Neg (Negative); Glucose Urine UA Norm (Normal); Ketones Urine Negative (Negative); Leukocyte Esterase Urine Negative (Negative); Nitrate Urine Negative (Negative); Protein Urine 1+ (Negative); Urobilinogen Urine Norm (Negative)
[2020-09-07 07:51] LABS: Basophils # 0.1 10^3/uL (0.0-0.1); Eosinophils # 0.4 10^3/uL (0.0-0.8); Eosinophils % 5.7 %; Hematocrit 39.7 % (37.0-47.0); Hemoglobin 12.9 g/dL (11.5-15.3); Lymphocytes % 27.1 %; Mean Corpuscular HGB Conc 32.5 g/dL (30.0-36.0); Mean Corpuscular Hemoglobin 33.2 pg (28.0-34.0); Mean Corpuscular Volume 102.1 fL (81-99); Mean Platelet Volume 10.1 fL (7.4-10.4); Monocytes # 0.5 10^3/uL (0.2-0.9); Monocytes % 7.4 %; Neutrophils # 4.21 10^3/uL (1.8-7.7); Neutrophils % 58.5 %; Nucleated Red Blood Cells % 0 %; Platelet Count 321 10^3/cmm (130-400); Red Blood Count 3.89 10^6/uL (4.1-5.3); Red Cell Distribution Width 13.5 % (12.1-15.1); White Blood Count 7.2 10^3/uL (4.0-10.0)
[2020-09-07 07:52] LABS: Add Urine Culture? No; Bacteria Urine TRACE /hpf; Squamous Epithelial Cell Urine 0-4 /hpf (0-5); WBC Urine 0-4 /hpf (0-5)
[2020-09-07 08:01] LABS: INR 0.86 (0.8-1.2)
[2020-09-07 08:12] LABS: Alanine Aminotransferase 19 U/L (0-33); Albumin Level 3.7 g/dL (3.5-5.2); Alkaline Phosphatase 69 IU/L (35-105); Amylase 131 U/L (28-100); Anion Gap 13.4 (5-19); Aspartate Amino Transferase 28 U/L (0-32); Blood Urea Nitrogen 29 mg/dL (6-20); Calcium 8.9 mg/dL (8.5-10.5); Carbon Dioxide 27 mmol/L (22-29); Chloride 104 mmol/L (98-107); Globulin 3.2 g/dL (1.3-4.6); Glomerular Filtration Rate 41.9 mL/min (90-130); Glucose 87 mg/dL (65-115); Lipase 61 U/L (13-60); Magnesium 1.9 mg/dL (1.7-2.3); Osmolality Calculated 295 mOsm/kg (285-295); Phosphorus 3.9 mg/dL (2.5-4.5); Potassium 4.4 mmol/L (3.5-5.1); Sodium 140 mmol/L (136-145); Total Bilirubin 0.2 mg/dL (0.15-1.2); Total Protein 6.9 g/dL (6.6-8.7); Uric Acid 4.6 mg/dL (2.4-5.7)
[2020-09-07 08:15] LABS: UPRO/UCREAT Ratio 1.26 mg/mg CR; Urine Creatinine 61 mg/dL (28-217); Urine Protein Random 77 mg/dL
[2020-09-07 08:18] LABS: Estmated Average Glucose 94; Hemoglobin A1C 4.9 % (4.0-6.0)
[2020-09-09 12:43] LABS: HEP C RNA Viral Load Quant <1.18 NOT DETECTED Log IU/mL (NOT DETECTED); HEP C RNA Viral Load Quant <15 NOT DETECTED IU/mL (NOT DETECTED)
== END 2020-09-07 23:59 | disposition home or self-care (01) ==
LOC: LAB 06:39
PROVIDERS: Specialist; PCP Family Medicine; Visit Provider Nurse Practitioner Adult Health
DX: B19.20 Unspecified viral hepatitis C without hepatic coma (principal); D84.9 Immunodeficiency, unspecified; E10.22 Type 1 diabetes mellitus with diabetic chronic kidney disease; N18.2 Chronic kidney disease, stage 2 (mild); Z94.83 Pancreas transplant status; Z94.0 Kidney transplant status; Z79.899 Other long term (current) drug therapy
CPT/HCPCS: 36415; 80053; 80197; 81001; 82150; 82570; 83036; 83690; 83735; 84100; 84156; 84550; 85025; 85610; 87522

== ENCOUNTER 2020-09-13 12:32 | Emergency (ER) | payer MEDICARE, MEDICAID, SELFPAY ==
[2020-09-13 12:51] VITALS: BP 186/108; PULSE 96; RESP 18; TEMP 36.7; O2SAT 99; BMI 17.4
[2020-09-13 12:57] VITALS: BP 166/104; PULSE 87; RESP 16; TEMP 36.9; O2SAT 91
--- NOTE | 2020-09-13 13:09 | W.ED.EXTPRO ---
Documented by User: MARIANNE Larsen 09/13/20 16:58 HPI - Extremity Problem General: Source: patient Mode of arrival: ambulatory Limitations: no limitations History of Present Illness: HPI Narrative: Pleasant 60-year-old female patient presents to the emergency department with left upper extremity problem. She reports removal of AV fistula from the left forearm , 09/10/2020. She reports compression with Feliberto wrap removed today as instructed. She reports blisters noted to the wrist and hand. She denies fever chills, itching, she reports increased pain to the distal extremity. She reports AV fistula was removed by Dr. Jovanni [facility]. She reports 1 blisters were noted, she rushed to the emergency department, did not take blood pressure medication or pain medication this morning. She is hypertensive upon exam. MD Complaint: extremity pain (left hand) and extremity swelling (left hand/wrist) Onset (ago): day(s) (1) Pain Consistency: constant Location: left and upper extremity Severity scale (1-10): 5 Quality: stabbing, dull and constant Radiation: distal Relieving factors: rest and other (elevation) Associated symptoms: Reports no associated symptoms and rash; Deny chest pain or fever(s) Context: other (Renal transplant, 2002) Review of Systems General: Reports: 10 or more systems reviewed and unremarkable except in HPI and below Const: Denies: fever(s), chills, body aches, fatigue, malaise or diaphoresis Eyes: Denies: blurry vision or eye redness ENMT: Denies: throat pain, dental pain or disequilibrium Card: Denies: chest pain, palpitations or irregular heart rhythm Resp: Denies: dyspnea, productive cough, non-productive cough or wheezing GI: Denies: abdominal pain, nausea or vomiting : Denies: difficulty voiding or dysuria Musc: Denies: neck pain, back pain, muscle cramps or muscle weakness Skin/Breast: Reports: rash, erythema, skin tenderness, changes in skin color and surgical incision; Denies: pruritus Neuro: Denies: headache(s), numbness in extremities, weakness in extremities (Left hand and wrist), difficulty walking, confusion or behavioral changes Psych: Denies: anxiety or depression Ishan/Lymph: Denies: easy bruising PFSH ED PFSH: Medical History Post hysterectomy menopause Surgical History Arteriovenous fistula removed Renal transplant recipient Physical Exam Const: COMMON NORMALS: no acute distress, patient oriented x3, healthy appearing and alert GENERAL APPEARANCE: cooperative, comfortable and well hydrated HENMT: COMMON NORMALS: normocephalic, Normal external nose present and moist oral mucous membranes HEAD & SCALP: normocephalic NOSE: Normal external nose present Eye: COMMON NORMALS: Equal, round and reactive pupils present and EOMs intact bilaterally GENERAL EYE: appearance normal, both eyes and all related structures PUPIL: Yes Equal, round and reactive pupils present Neck/C-Spine: COMMON NORMALS: full ROM and no lymphadenopathy GENERAL: Yes normal visual inspection and Yes trachea midline CERVICAL SPINE: Yes cervical ROM normal Lymph: LYMPHATIC: no lymphadenopathy noted Chest: COMMONS NORMALS: normal inspection of the chest Resp: COMMON NORMALS: normal respiratory effort and clear to auscultation bilaterally AUSCULTATION: clear to auscultation bilaterally Cardio: COMMON NORMALS: regular rhythm, S1 normal heart sound present and S2 normal heart sound present RHYTHM: regular rhythm HEART SOUNDS: S1 normal heart sound present and S2 normal heart sound present GI: COMMON NORMALS: Soft to palpation and non-tender INSPECTION: Yes normal to inspection PALPATION: Yes Soft to palpation : COMMON NORMALS: Yes no CVA tenderness BLADDER/KIDNEY EXAM: Yes no CVA tenderness Back/Pelvis: COMMON NORMALS: no CVA tenderness, thoracic and lumbar spine normal to inspection, no thoracic nor lumbar tenderness and thoraco-lumbar ROM normal Extremity: COMMON NORMALS: normal to inspection and capillary refill normal GENERAL: Yes normal exam except as noted RIGHT UPPER EXTREMITY: Yes wrist Right wrist: Yes ROM (limited due to pain) and Yes neurovascular exam (distally intact) Neuro: COMMON NORMALS: patient oriented x3 and no focal motor deficits SENSORIUM/ORIENTATION: Yes alert Psych: COMMON NORMALS: mental status grossly normal, Normal thought process present and cooperative ACTIVITY/MOTOR BEHAVIOR: Yes appropriate eye contact THOUGHT PROCESS: Normal thought process present Skin: COMMON NORMALS: no rashes or lesions noted and turgor normal GENERAL SKIN EXAM: no rashes or lesions noted and turgor normal Course Vital Signs: Vital signs: Vital Signs Temperature 98.0 F 12/06/20 16:30 Pulse Rate 87 09/13/20 16:30 Respiratory Rate 16 09/13/20 16:30 Blood Pressure 185/105 09/13/20 16:30 Pulse Oximetry 96 09/13/20 16:30 MDM - Extremity (Nontraumatic) Lab Data: Labs: Lab Results 09/13/20 09/13/20 Range/Units 14:15 14:15 WBC 7.1 (4.0-10.0) 10^3/ uL RBC 3.45 L (4.1-5.3) 10^6/u L Hgb 11.3 L (11.5-15.3) g/dL Hct 34.1 L (37.0-47.0) % MCV 98.8 (81-99) fL MCH 32.8 (28.0-34.0) pg MCHC 33.1 (30.0-36.0) g/dL RDW 13.2 (12.1-15.1) % Plt Count 288 (130-400) 10^3/c mm MPV 10.1 (7.4-10.4) fL Neut % (Auto) 65.5 % Lymph % (Auto) 20.8 % Desha % (Auto) 9.7 % Eos % (Auto) 3.1 % Baso % (Auto) 0.6 % Neut # (Auto) 4.65 (1.8-7.7) 10^3/u L Lymph # (Auto) 1.5 (0.8-4.8) 10^3/u L Desha # (Auto) 0.7 (0.2-0.9) 10^3/u L Eos # (Auto) 0.2 (0.0-0.8) 10^3/u L Baso # (Auto) 0.0 (0.0-0.1) 10^3/u L Nucleated RBC % (a uto) 0 % Nucleated RBCs # 0.0 /100WBC Sodium 136 (136-145) mmol/L Potassium 4.3 (3.5-5.1) mmol/L Chloride 100 (98-107) mmol/L Carbon Dioxide 28 (22-29) mmol/L Anion Gap 12.3 (5-19) BUN 20 (6-20) mg/dL Creatinine 1.0 H (0.5-0.9) mg/dL GFR Calculation 56.7 L (90-130) mL/min Glucose 89 (65-115) mg/dL Calculated Osmolal ity 284 L (285-295) mOsm/k g Calcium 8.9 (8.5-10.5) mg/dL Total Bilirubin 0.3 (0.15-1.2) mg/dL AST 25 (0-32) U/L ALT 16 (0-33) U/L Alkaline Phosphata se 70 (35-105) IU/L Total Protein 7.0 (6.6-8.7) g/dL Albumin 3.9 (3.5-5.2) g/dL Globulin 3.1 (1.3-4.6) g/dL Imaging Data^: US: Radiologist's impression: US LUE, venous, no evidence of DVT Discharge Plan Discharge Prescriptions: No Action loperamide 2 mg capsule 2 mg PO TID PRN (Reason: Diarrhea) RF: 0 hydrocodone-acetaminophen 5-325 mg tablet See Rx Instructions .ROUTE .COMPLEX RF: 0 magnesium oxide 400 mg (241.3 mg magnesium) tablet 400 mg PO DAILY@1430 RF: 0 losartan 25 mg tablet 25 mg PO BID@699,1729 RF: 0 propranolol 20 mg tablet See Rx Instructions .ROUTE .COMPLEX RF: 0 ondansetron 4 mg tablet,disintegrating 4 mg PO Q8H PRN (Reason: NAUSEA/VOMITING) RF: 0 fluticasone propionate 50 mcg/actuation spray,suspension 1 spray INTRANASAL DAILY@2099 RF: 0 tacrolimus 0.5 mg capsule 1 mg PO BID RF: 0 mycophenolate sodium 180 mg tablet,delayed release (DR/EC) 180 mg PO BID@ RF: 0 PrePlus 27 mg iron- 1 mg tablet 1 tab PO DAILY@699 RF: 0 Epclusa 400-100 mg tablet 1 tab PO DAILY@2099 RF: 0 Vitamin C 500 mg Tablet 500 mg PO BID@00,0 RF: 0 Benadryl Allergy 25 mg Tablet 25 mg PO Q6H PRN (Reason: Allergy Symptoms) RF: 0 aspirin 81 mg Tablet,Chewable 81 mg PO DAILY@2099 RF: 0 vitamin E acetate 200 unit Capsule 400 unit PO DAILY@0700 RF: 0 Coding Level of Care Code ED Instrumentation Manager for Chg Fwd Exam Comprehensive Documented by User: Clifton Olivier DPM 09/13/20 17:03 PFSH ED PFSH: Medical History Post hysterectomy menopause Surgical History Arteriovenous fistula removed Renal transplant recipient Course Vital Signs: Vital signs: Vital Signs Temperature 98.0 F 09/13/20 16:30 Pulse Rate 87 09/13/20 16:30 Respiratory Rate 16 09/13/20 16:30 Blood Pressure 185/105 09/13/20 16:30 Pulse Oximetry 96 09/13/20 16:30 MDM - Extremity (Nontraumatic) Lab Data: Labs: Lab Results 09/13/20 09/13/20 Range/Units 14:15 14:15 WBC 7.1 (4.0-10.0) 10^3/ uL RBC 3.45 L (4.1-5.3) 10^6/u L Hgb 11.3 L (11.5-15.3) g/dL Hct 34.1 L (37.0-47.0) % MCV 98.8 (81-99) fL MCH 32.8 (28.0-34.0) pg MCHC 33.1 (30.0-36.0) g/dL RDW 13.2 (12.1-15.1) % Plt Count 288 (130-400) 10^3/c mm MPV 10.1 (7.4-10.4) fL Neut % (Auto) 65.5 % Lymph % (Auto) 20.8 % Desha % (Auto) 9.7 % Eos % (Auto) 3.1 % Baso % (Auto) 0.6 % Neut # (Auto) 4.65 (1.8-7.7) 10^3/u L Lymph # (Auto) 1.5 (0.8-4.8) 10^3/u L Desha # (Auto) 0.7 (0.2-0.9) 10^3/u L Eos # (Auto) 0.2 (0.0-0.8) 10^3/u L Baso # (Auto) 0.0 (0.0-0.1) 10^3/u L Nucleated RBC % (a uto) 0 % Nucleated RBCs # 0.0 /100WBC Sodium 136 (136-145) mmol/L Potassium 4.3 (3.5-5.1) mmol/L Chloride 100 (98-107) mmol/L Carbon Dioxide 28 (22-29) mmol/L Anion Gap 12.3 (5-19) BUN 20 (6-20) mg/dL Creatinine 1.0 H (0.5-0.9) mg/dL GFR Calculation 56.7 L (90-130) mL/min Glucose 89 (65-115) mg/dL Calculated Osmolal ity 284 L (285-295) mOsm/k g Calcium 8.9 (8.5-10.5) mg/dL Total Bilirubin 0.3 (0.15-1.2) mg/dL AST 25 (0-32) U/L ALT 16 (0-33) U/L Alkaline Phosphata se 70 (35-105) IU/L Total Protein 7.0 (6.6-8.7) g/dL Albumin 3.9 (3.5-5.2) g/dL Globulin 3.1 (1.3-4.6) g/dL Discharge Plan Discharge Prescriptions: No Action loperamide 2 mg capsule 2 mg PO TID PRN (Reason: Diarrhea) RF: 0 hydrocodone-acetaminophen 5-325 mg tablet See Rx Instructions .ROUTE .COMPLEX RF: 0 magnesium oxide 400 mg (241.3 mg magnesium) tablet 400 mg PO DAILY@1430 RF: 0 losartan 25 mg tablet 25 mg PO BID@0700,1730 RF: 0 propranolol 20 mg tablet See Rx Instructions .ROUTE .COMPLEX RF: 0 ondansetron 4 mg tablet,disintegrating 4 mg PO Q8H PRN (Reason: NAUSEA/VOMITING) RF: 0 fluticasone propionate 50 mcg/actuation spray,suspension 1 spray INTRANASAL DAILY@2100 RF: 0 tacrolimus 0.5 mg capsule 1 mg PO BID RF: 0 mycophenolate sodium 180 mg tablet,delayed release (DR/EC) 180 mg PO BID@ RF: 0 PrePlus 27 mg iron- 1 mg tablet 1 tab PO DAILY@0700 RF: 0 Epclusa 400-100 mg tablet 1 tab PO DAILY@2100 RF: 0 Vitamin C 500 mg Tablet 500 mg PO BID@0700,1730 RF: 0 Benadryl Allergy 25 mg Tablet 25 mg PO Q6H PRN (Reason: Allergy Symptoms) RF: 0 aspirin 81 mg Tablet,Chewable 81 mg PO DAILY@2100 RF: 0 vitamin E acetate 200 unit Capsule 400 unit PO DAILY@0700 RF: 0 Coding Level of Care Code ED Instrumentation Manager for Tanya Fwd Exam Comprehensive
[2020-09-13 13:27] VITALS: BP 176/111; PULSE 99; RESP 18; TEMP 36.7; O2SAT 92
[2020-09-13 14:29] LABS: Basophils % 0.6 %; Eosinophils # 0.2 10^3/uL (0.0-0.8); Eosinophils % 3.1 %; Hematocrit 34.1 % (37.0-47.0); Hemoglobin 11.3 g/dL (11.5-15.3); Lymphocytes # 1.5 10^3/uL (0.8-4.8); Lymphocytes % 20.8 %; Mean Corpuscular HGB Conc 33.1 g/dL (30.0-36.0); Mean Corpuscular Hemoglobin 32.8 pg (28.0-34.0); Mean Corpuscular Volume 98.8 fL (81-99); Mean Platelet Volume 10.1 fL (7.4-10.4); Monocytes # 0.7 10^3/uL (0.2-0.9); Monocytes % 9.7 %; Neutrophils # 4.65 10^3/uL (1.8-7.7); Neutrophils % 65.5 %; Nucleated Red Blood Cells % 0 %; Platelet Count 288 10^3/cmm (130-400); Red Blood Count 3.45 10^6/uL (4.1-5.3); Red Cell Distribution Width 13.2 % (12.1-15.1); White Blood Count 7.1 10^3/uL (4.0-10.0)
[2020-09-13 14:42] LABS: Alanine Aminotransferase 16 U/L (0-33); Albumin Level 3.9 g/dL (3.5-5.2); Alkaline Phosphatase 70 IU/L (35-105); Anion Gap 12.3 (5-19); Aspartate Amino Transferase 25 U/L (0-32); Blood Urea Nitrogen 20 mg/dL (6-20); Calcium 8.9 mg/dL (8.5-10.5); Carbon Dioxide 28 mmol/L (22-29); Chloride 100 mmol/L (98-107); Globulin 3.1 g/dL (1.3-4.6); Glomerular Filtration Rate 56.7 mL/min (90-130); Glucose 89 mg/dL (65-115); Osmolality Calculated 284 mOsm/kg (285-295); Potassium 4.3 mmol/L (3.5-5.1); Sodium 136 mmol/L (136-145); Total Bilirubin 0.3 mg/dL (0.15-1.2)
--- NOTE | 2020-09-13 14:55 | USR_ITS ---
PROCEDURE INFORMATION: Exam: US Duplex Left Upper Extremity Veins, Limited Exam date and time: 09/13/2020 3:16 PM Age: 60 years old Clinical indication: Pain; Arm, lower; Left; Prior surgery; Surgery date: Post-operative (0-2 days); Surgery type: Fistula removal 09-10-20; Additional info: Edema and swelling lue recent av fistula removal TECHNIQUE: Imaging protocol: Real-time Duplex ultrasound of the Left Upper Extremity with 2-D wilson scale, color Doppler flow and spectral waveform analysis with image documentation. Limited exam focused on the left upper extremity veins. COMPARISON: No relevant prior studies available. FINDINGS: Left deep veins: Unremarkable. Axillary and brachial veins are patent throughout without thrombus. Normal Doppler waveforms. Normal compressibility and/or augmentation response. Visualized internal jugular and subclavian veins are patent. Left superficial veins: Unremarkable. Visualized cephalic and basilic veins are patent without thrombus. Soft tissues: Unremarkable. The left antecubital fossa is difficult to evaluate. There are mike in the proximal mid forearm which limits evaluation. Left radial and ulnar artery flow is documented. US/[place] [id number] IMPRESSION: No evidence of deep vein thrombosis.
[2020-09-13] MEDS: propranolol 20 mg Tablet PO (15:30)
[2020-09-13 16:30] VITALS: BP 185/105; PULSE 87; RESP 16; TEMP 36.7; O2SAT 96
[2020-09-13 17:00] VITALS: BP 183/111; RESP 16; O2SAT 94
[2020-09-13] MEDS: morphine 4 mg/mL SDV 1 mL IM (17:00)
[2020-09-13] MEDS: losartan 50 mg Tablet 25 MG PO (17:00)
--- NOTE | 2020-09-13 17:06 | W.ED.EXTPRO ---
HPI - Extremity Problem General: Chief complaint: Extremity Injury, Upper Stated complaint: ALLERGIC RXN Time Seen by Provider: 09/13/20 13:04 Source: patient Mode of arrival: ambulatory Limitations: no limitations History of Present Illness: HPI Narrative: 60-year-old female patient presents to the emergency department with left upper extremity issue. Recent AV fistula removal by Dr. 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 She reports blistering formation with removal of compression to the wound. She reports drove straight to the emergency room, did not take blood pressure medication or pain medication prior to arrival. Blood pressure noted to be elevated. MD Complaint: extremity swelling (left hand) Onset (ago): day(s) (1) Pain Consistency: constant Location: left and upper extremity Severity scale (1-10): 5 Quality: aching and dull Radiation: distal Relieving factors: rest and other (elevation) Associated symptoms: Reports rash; Deny chest pain or fever(s) Review of Systems General: Reports: 10 or more systems reviewed and unremarkable except in HPI and below Const: Denies: fever(s), chills or diaphoresis Eyes: Denies: blurry vision or eye redness ENMT: Denies: throat pain, dental pain or disequilibrium Card: Denies: chest pain, palpitations or irregular heart rhythm Resp: Denies: dyspnea, productive cough, non-productive cough or wheezing GI: Denies: abdominal pain, nausea or vomiting : Denies: difficulty voiding or dysuria Musc: Reports: extremity pain (left hand); Denies: neck pain or back pain Skin/Breast: Reports: rash, skin tenderness, changes in skin color and surgical incision; Denies: pruritus Neuro: Reports: numbness in extremities (left hand); Denies: headache(s), weakness in extremities, difficulty walking or behavioral changes Psych: Denies: anxiety or depression Ishan/Lymph: Denies: easy bruising PFSH ED PFSH: Medical History Post hysterectomy menopause Surgical History Arteriovenous fistula removed Renal transplant recipient Physical Exam Const: COMMON NORMALS: no acute distress, patient oriented x3, healthy appearing and alert GENERAL APPEARANCE: cooperative, comfortable and well hydrated HENMT: COMMON NORMALS: normocephalic, Normal external nose present and moist oral mucous membranes HEAD & SCALP: normocephalic NOSE: Normal external nose present Eye: COMMON NORMALS: Equal, round and reactive pupils present and EOMs intact bilaterally GENERAL EYE: appearance normal, both eyes and all related structures PUPIL: Yes Equal, round and reactive pupils present Neck/C-Spine: COMMON NORMALS: full ROM and no lymphadenopathy GENERAL: Yes normal visual inspection and Yes trachea midline CERVICAL SPINE: Yes cervical ROM normal Lymph: LYMPHATIC: no lymphadenopathy noted Chest: COMMONS NORMALS: normal inspection of the chest Resp: COMMON NORMALS: normal respiratory effort and clear to auscultation bilaterally AUSCULTATION: clear to auscultation bilaterally Cardio: COMMON NORMALS: regular rhythm, S1 normal heart sound present and S2 normal heart sound present RHYTHM: regular rhythm HEART SOUNDS: S1 normal heart sound present and S2 normal heart sound present GI: COMMON NORMALS: Soft to palpation and non-tender INSPECTION: Yes normal to inspection PALPATION: Yes Soft to palpation : COMMON NORMALS: Yes no CVA tenderness BLADDER/KIDNEY EXAM: Yes no CVA tenderness Back/Pelvis: COMMON NORMALS: no CVA tenderness and thoracic and lumbar spine normal to inspection Extremity: COMMON NORMALS: normal to inspection, full ROM and capillary refill normal GENERAL: Yes normal exam except as noted EXTREMITY IMAGE (FRONT): 1. surgical incision with intact mike, no erythema, edema or malodorous drainage, ecchymosis present 2. Scattered bullae to the dorsal hand, radial side wrist, negative erythema Neuro: COMMON NORMALS: patient oriented x3 and no focal motor deficits SENSORIUM/ORIENTATION: Yes alert Psych: COMMON NORMALS: mental status grossly normal, Normal thought process present and cooperative ACTIVITY/MOTOR BEHAVIOR: Yes appropriate eye contact THOUGHT PROCESS: Normal thought process present Skin: COMMON NORMALS: no rashes or lesions noted and turgor normal GENERAL SKIN EXAM: no rashes or lesions noted and turgor normal Course Consultations: Consultation #1: Dr Ham, surgeon technical operations specialist, serology testing and US results discussed - advised for patient to return to the clinic for evaluation as scheduled Time: 17:10 Vital Signs: Vital signs: Vital Signs Temperature 98.0 F 09/13/20 16:30 Pulse Rate 87 09/13/20 16:30 Respiratory Rate 16 09/13/20 16:30 Blood Pressure 185/105 09/13/20 16:30 Pulse Oximetry 96 09/13/20 16:30 MDM - Extremity (Nontraumatic) Lab Data: Labs: Lab Results 09/13/20 09/13/20 Range/Units 14:15 14:15 WBC 7.1 (4.0-10.0) 10^3/ uL RBC 3.45 L (4.1-5.3) 10^6/u L Hgb 11.3 L (11.5-15.3) g/dL Hct 34.1 L (37.0-47.0) % MCV 98.8 (81-99) fL MCH 32.8 (28.0-34.0) pg MCHC 33.1 (30.0-36.0) g/dL RDW 13.2 (12.1-15.1) % Plt Count 288 (130-400) 10^3/c mm MPV 10.1 (7.4-10.4) fL Neut % (Auto) 65.5 % Lymph % (Auto) 20.8 % [place] % (Auto) 9.7 % Eos % (Auto) 3.1 % Baso % (Auto) 0.6 % Neut # (Auto) 4.65 (1.8-7.7) 10^3/u L Lymph # (Auto) 1.5 (0.8-4.8) 10^3/u L [place] # (Auto) 0.7 (0.2-0.9) 10^3/u L Eos # (Auto) 0.2 (0.0-0.8) 10^3/u L Baso # (Auto) 0.0 (0.0-0.1) 10^3/u L Nucleated RBC % (a uto) 0 % Nucleated RBCs # 0.0 /100WBC Sodium 136 (136-145) mmol/L Potassium 4.3 (3.5-5.1) mmol/L Chloride 100 (98-107) mmol/L Carbon Dioxide 28 (22-29) mmol/L Anion Gap 12.3 (5-19) BUN 20 (6-20) mg/dL Creatinine 1.0 H (0.5-0.9) mg/dL GFR Calculation 56.7 L (90-130) mL/min Glucose 89 (65-115) mg/dL Calculated Osmolal ity 284 L (285-295) mOsm/k g Calcium 8.9 (8.5-10.5) mg/dL Total Bilirubin 0.3 (0.15-1.2) mg/dL AST 25 (0-32) U/L ALT 16 (0-33) U/L Alkaline Phosphata se 70 (35-105) IU/L Total Protein 7.0 (6.6-8.7) g/dL Albumin 3.9 (3.5-5.2) g/dL Globulin 3.1 (1.3-4.6) g/dL Discharge Plan Discharge Patient Disposition: Home Clinical Impression: Surgical wound present Abnormal surgical wound Qualifiers: Encounter type: initial encounter Qualified Code(s): T81.9XXA - Unspecified complication of procedure, initial encounter Condition: Stable Prescriptions: No Action loperamide 2 mg capsule 2 mg PO TID PRN (Reason: Diarrhea) RF: 0 hydrocodone-acetaminophen 5-325 mg tablet See Rx Instructions .ROUTE .COMPLEX RF: 0 magnesium oxide 400 mg (241.3 mg magnesium) tablet 400 mg PO DAILY@1430 RF: 0 losartan 25 mg tablet 25 mg PO BID@699,1729 RF: 0 propranolol 20 mg tablet See Rx Instructions .ROUTE .COMPLEX RF: 0 ondansetron 4 mg tablet,disintegrating 4 mg PO Q8H PRN (Reason: NAUSEA/VOMITING) RF: 0 fluticasone propionate 50 mcg/actuation spray,suspension 1 spray INTRANASAL DAILY@2099 RF: 0 tacrolimus 0.5 mg capsule 1 mg PO BID RF: 0 mycophenolate sodium 180 mg tablet,delayed release (DR/EC) 180 mg PO BID@ RF: 0 PrePlus 27 mg iron- 1 mg tablet 1 tab PO DAILY@0700 RF: 0 Epclusa 400-100 mg tablet 1 tab PO DAILY@2099 RF: 0 Vitamin C 500 mg Tablet 500 mg PO BID@0700,1730 RF: 0 Benadryl Allergy 25 mg Tablet 25 mg PO Q6H PRN (Reason: Allergy Symptoms) RF: 0 aspirin 81 mg Tablet,Chewable 81 mg PO DAILY@2099 RF: 0 vitamin E acetate 200 unit Capsule 400 unit PO DAILY@0700 RF: 0 Discharge Orders: Discharge ED (Routine); Ordered 09/13/20 Ordered By: Viridiana Stallings Referrals: Ale Olivier MD [Primary Care Provider] - Discharge Diet: Usual diet Discharge Activity: Limit activity as instructed Patient Instructions: Acute Wound Care (ED) Activity Restrictions/Additional Instructions: Continue wound instructions as per Dr Ybarra Continue medications and dressing changes as per Dr Ybarra REturn to the ED if you develop increased pain, increased swelling or fever Follow up with Dr Ybarra this week as scheduled Dr Ham advised if concerned may go to the surgical clinic for evaluation Coding Level of Care Code ED International Account Manager for Chg Fwd Exam Comprehensive
== END 2020-09-13 17:50 | disposition home or self-care (01) ==
PROVIDERS: Emergency Provider Nurse Practitioner Family; PCP Family Medicine
DX: T81.9XXA Unspecified complication of procedure, initial encounter (principal); Z79.82 Long term (current) use of aspirin; M79.89 Other specified soft tissue disorders
CPT/HCPCS: 12345; 36415; 80053; 85025; 93971; 96372; 96374; 99281; 99283; J2270

== ENCOUNTER 2020-10-15 07:16 | Outpatient (RCR) | payer MEDICARE, MEDICAID, SELFPAY ==
[2020-10-15 08:04] LABS: Basophils # 0.1 10^3/uL (0.0-0.1); Basophils % 1.1 %; Eosinophils # 0.3 10^3/uL (0.0-0.8); Eosinophils % 4.1 %; Hematocrit 37.6 % (37.0-47.0); Hemoglobin 12.3 g/dL (11.5-15.3); Lymphocytes # 1.3 10^3/uL (0.8-4.8); Lymphocytes % 21.3 %; Mean Corpuscular HGB Conc 32.7 g/dL (30.0-36.0); Mean Corpuscular Hemoglobin 33.1 pg (28.0-34.0); Mean Corpuscular Volume 101.1 fL (81-99); Mean Platelet Volume 9.7 fL (7.4-10.4); Monocytes # 0.5 10^3/uL (0.2-0.9); Monocytes % 7.6 %; Neutrophils # 4.11 10^3/uL (1.8-7.7); Neutrophils % 65.6 %; Nucleated Red Blood Cells % 0 %; Platelet Count 333 10^3/cmm (130-400); Red Blood Count 3.72 10^6/uL (4.1-5.3); Red Cell Distribution Width 13.6 % (12.1-15.1); White Blood Count 6.3 10^3/uL (4.0-10.0)
[2020-10-15 08:22] LABS: INR 0.91 (0.8-1.2)
[2020-10-15 08:46] LABS: Urine Creatinine 61 mg/dL (28-217)
[2020-10-15 08:47] LABS: Alanine Aminotransferase 15 U/L (0-33); Albumin Level 3.7 g/dL (3.5-5.2); Alkaline Phosphatase 83 IU/L (35-105); Amylase 123 U/L (28-100); Anion Gap 10.3 (5-19); Aspartate Amino Transferase 26 U/L (0-32); Blood Urea Nitrogen 27 mg/dL (6-20); Calcium 9.2 mg/dL (8.5-10.5); Carbon Dioxide 29 mmol/L (22-29); Chloride 103 mmol/L (98-107); Globulin 3.1 g/dL (1.3-4.6); Glomerular Filtration Rate 50.8 mL/min (90-130); Glucose 85 mg/dL (65-115); Lipase 57 U/L (13-60); Magnesium 1.7 mg/dL (1.7-2.3); Osmolality Calculated 292 mOsm/kg (285-295); Potassium 3.3 mmol/L (3.5-5.1); Sodium 139 mmol/L (136-145); Total Bilirubin 0.3 mg/dL (0.15-1.2); Total Protein 6.8 g/dL (6.6-8.7); Uric Acid 3.5 mg/dL (2.4-5.7)
[2020-10-15 08:47] LABS: UPRO/UCREAT Ratio 1.61 mg/mg CR; Urine Protein Random 98 mg/dL
[2020-10-15 09:02] LABS: Estmated Average Glucose 91; Hemoglobin A1C 4.8 % (4.0-6.0)
[2020-10-15 09:12] LABS: Bilirubin Urine Neg (Negative); Blood Urine Neg (Negative); Glucose Urine UA Norm (Normal); Ketones Urine Negative (Negative); Leukocyte Esterase Urine Negative (Negative); Nitrate Urine Negative (Negative); Protein Urine 1+ (Negative); RBC Urine 0-4 /hpf (0-2); Urine Appearance SL Hazy (CLEAR); Urine Color Yellow (Yellow); Urobilinogen Urine Norm (Negative); WBC Urine 25-40 /hpf (0-5); pH Urine 6 (5-7)
[2020-10-15 09:13] LABS: Add Urine Culture? No; Bacteria Urine 2+ /hpf; Squamous Epithelial Cell Urine 25-40 /hpf (0-5)
[2020-10-16 15:33] LABS: HEP C RNA Viral Load Quant <1.18 NOT DETECTED Log IU/mL (NOT DETECTED); HEP C RNA Viral Load Quant <15 NOT DETECTED IU/mL (NOT DETECTED)
== END 2020-11-08 23:59 | disposition home or self-care (01) ==
LOC: LAB 07:16
PROVIDERS: Absent Provider Nurse Practitioner Adult Health; PCP Family Medicine; Visit Provider Specialist
DX: E10.22 Type 1 diabetes mellitus with diabetic chronic kidney disease (principal); B19.20 Unspecified viral hepatitis C without hepatic coma; D84.9 Immunodeficiency, unspecified
CPT/HCPCS: 36415; 80053; 80197; 81001; 82150; 82570; 83036; 83690; 83735; 84156; 84550; 85025; 85610; 87522

== ENCOUNTER 2021-02-11 06:32 | Outpatient (CLI) | payer MEDICARE, MEDICAID, SELFPAY ==
[2021-02-11 07:04] LABS: Basophils # 0.1 10^3/uL (0.0-0.1); Basophils % 1.4 %; Eosinophils # 0.9 10^3/uL (0.0-0.8); Eosinophils % 13.1 %; Hematocrit 36.7 % (37.0-47.0); Hemoglobin 11.7 g/dL (11.5-15.3); Lymphocytes # 1.5 10^3/uL (0.8-4.8); Mean Corpuscular HGB Conc 31.9 g/dL (30.0-36.0); Mean Corpuscular Hemoglobin 32.9 pg (28.0-34.0); Mean Corpuscular Volume 103.1 fL (81-99); Mean Platelet Volume 10.4 fL (7.4-10.4); Monocytes # 0.7 10^3/uL (0.2-0.9); Monocytes % 10.6 %; Neutrophils # 3.48 10^3/uL (1.8-7.7); Neutrophils % 52.7 %; Nucleated Red Blood Cells % 0 %; Platelet Count 295 10^3/cmm (130-400); Red Blood Count 3.56 10^6/uL (4.1-5.3); White Blood Count 6.6 10^3/uL (4.0-10.0)
[2021-02-11 07:24] LABS: Alanine Aminotransferase 22 U/L (0-33); Albumin Level 3.5 g/dL (3.5-5.2); Alkaline Phosphatase 85 IU/L (35-105); Amylase 138 U/L (28-100); Anion Gap 11.4 (5-19); Aspartate Amino Transferase 26 U/L (0-32); Blood Urea Nitrogen 27 mg/dL (6-20); Calcium 8.2 mg/dL (8.5-10.5); Carbon Dioxide 28 mmol/L (22-29); Chloride 105 mmol/L (98-107); Globulin 2.7 g/dL (1.3-4.6); Glomerular Filtration Rate 50.8 mL/min (90-130); Glucose 86 mg/dL (65-115); Lipase 90 U/L (13-60); Magnesium 1.9 mg/dL (1.7-2.3); Osmolality Calculated 296 mOsm/kg (285-295); Phosphorus 3.5 mg/dL (2.5-4.5); Potassium 3.4 mmol/L (3.5-5.1); Sodium 141 mmol/L (136-145); Total Bilirubin 0.2 mg/dL (0.15-1.2); Total Protein 6.2 g/dL (6.6-8.7); Uric Acid 4.6 mg/dL (2.4-5.7)
[2021-02-11 07:25] LABS: Add Urine Microscopic? YES; Bilirubin Urine Neg (Negative); Blood Urine Neg (Negative); Glucose Urine UA Norm (Normal); Ketones Urine Negative (Negative); Leukocyte Esterase Urine Negative (Negative); Nitrate Urine Negative (Negative); Protein Urine 1+ (Negative); Urine Appearance Clear (CLEAR); Urine Color Straw (Yellow); Urobilinogen Urine Norm (Negative); pH Urine 6.5 (5-7)
[2021-02-11 07:26] LABS: Estmated Average Glucose 97
[2021-02-11 07:53] LABS: Bacteria Urine TRACE /hpf; RBC Urine RARE /hpf (0-2); Squamous Epithelial Cell Urine 0-4 /hpf (0-5); WBC Urine 0-4 /hpf (0-5)
[2021-02-11 07:57] LABS: Urine Creatinine 53 mg/dL (28-217)
[2021-02-11 07:58] LABS: Add Urine Culture? No; Mucus Urine TRACE /hpf
[2021-02-11 07:59] LABS: UPRO/UCREAT Ratio 1.87 mg/mg CR; Urine Protein Random 99 mg/dL
== END 2021-02-11 06:33 | disposition home or self-care (01) ==
LOC: LAB 06:34
PROVIDERS: PCP Family Medicine; Visit Provider Specialist
DX: Z94.0 Kidney transplant status (principal); Z79.899 Other long term (current) drug therapy; D84.9 Immunodeficiency, unspecified; R80.8 Other proteinuria; Z94.83 Pancreas transplant status; E10.22 Type 1 diabetes mellitus with diabetic chronic kidney disease; N18.30 Chronic kidney disease, stage 3 unspecified
CPT/HCPCS: 36415; 80053; 80197; 81001; 82150; 82570; 83036; 83690; 83735; 84100; 84156; 84550; 85025; 87086

== ENCOUNTER 2021-03-24 06:10 | Outpatient (CLI) | payer MEDICARE, MEDICAID, SELFPAY ==
[2021-03-24 07:07] LABS: Basophils # 0.1 10^3/uL (0.0-0.1); Basophils % 0.9 %; Eosinophils # 2.5 10^3/uL (0.0-0.8); Eosinophils % 24.9 %; Hematocrit 38.4 % (37.0-47.0); Hemoglobin 12.7 g/dL (11.5-15.3); Lymphocytes # 1.3 10^3/uL (0.8-4.8); Lymphocytes % 12.7 %; Mean Corpuscular HGB Conc 33.1 g/dL (30.0-36.0); Mean Corpuscular Hemoglobin 32.7 pg (28.0-34.0); Mean Platelet Volume 10.1 fL (7.4-10.4); Monocytes # 0.7 10^3/uL (0.2-0.9); Monocytes % 7.2 %; Nucleated Red Blood Cells % 0 %; Platelet Count 302 10^3/cmm (130-400); Red Blood Count 3.88 10^6/uL (4.1-5.3); Red Cell Distribution Width 13.1 % (12.1-15.1); White Blood Count 10.2 10^3/uL (4.0-10.0)
[2021-03-24 07:31] LABS: Add Urine Microscopic? YES; Bilirubin Urine Neg (Negative); Blood Urine Neg (Negative); Glucose Urine UA Norm (Normal); Ketones Urine Negative (Negative); Leukocyte Esterase Urine Negative (Negative); Nitrate Urine Negative (Negative); Protein Urine 1+ (Negative); Urine Appearance Clear (CLEAR); Urine Color Yellow (Yellow); Urobilinogen Urine Norm (Negative); pH Urine 5 (5-7)
[2021-03-24 07:34] LABS: Alanine Aminotransferase 16 U/L (0-33); Albumin Level 3.5 g/dL (3.5-5.2); Alkaline Phosphatase 75 IU/L (35-105); Anion Gap 12.9 (5-19); Aspartate Amino Transferase 27 U/L (0-32); Blood Urea Nitrogen 34 mg/dL (6-20); Carbon Dioxide 26 mmol/L (22-29); Chloride 105 mmol/L (98-107); Estmated Average Glucose 91; Glucose 92 mg/dL (65-115); Hemoglobin A1C 4.8 % (4.0-6.0); Magnesium 1.8 mg/dL (1.7-2.3); Osmolality Calculated 297 mOsm/kg (285-295); Phosphorus 2.6 mg/dL (2.5-4.5); Potassium 3.9 mmol/L (3.5-5.1); Sodium 140 mmol/L (136-145); Total Bilirubin 0.2 mg/dL (0.15-1.2); Total Protein 6.5 g/dL (6.6-8.7); Uric Acid 3.8 mg/dL (2.4-5.7)
[2021-03-24 07:47] LABS: Squamous Epithelial Cell Urine 0-4 /hpf (0-5); WBC Urine 0-4 /hpf (0-5)
[2021-03-24 07:48] LABS: Add Urine Culture? No; Bacteria Urine TRACE /hpf
[2021-03-24 07:52] LABS: Urine Creatinine 94 mg/dL (28-217)
[2021-03-24 07:53] LABS: UPRO/UCREAT Ratio 0.95 mg/mg CR; Urine Protein Random 89 mg/dL
[2021-03-24 09:39] LABS: Amylase 894 U/L (28-100); Lipase 1671 U/L (13-60)
== END 2021-03-24 06:11 | disposition home or self-care (01) ==
LOC: LAB 06:15
PROVIDERS: PCP Family Medicine; Visit Provider Specialist
DX: Z79.899 Other long term (current) drug therapy (principal); Z94.0 Kidney transplant status; D84.9 Immunodeficiency, unspecified; R80.8 Other proteinuria; Z94.83 Pancreas transplant status; E10.22 Type 1 diabetes mellitus with diabetic chronic kidney disease; N18.30 Chronic kidney disease, stage 3 unspecified
CPT/HCPCS: 80053; 80197; 81001; 82150; 82570; 83036; 83690; 83735; 84100; 84156; 84550; 85025; 87086

== ENCOUNTER 2021-04-05 08:15 | Outpatient (CLI) | payer MEDICARE, MEDICAID, SELFPAY ==
[2021-04-05 09:49] LABS: Basophils # 0.1 10^3/uL (0.0-0.1); Eosinophils # 1.3 10^3/uL (0.0-0.8); Eosinophils % 16.6 %; Hematocrit 38.3 % (37.0-47.0); Hemoglobin 12.5 g/dL (11.5-15.3); Lymphocytes # 1.2 10^3/uL (0.8-4.8); Lymphocytes % 15.3 %; Mean Corpuscular HGB Conc 32.6 g/dL (30.0-36.0); Mean Corpuscular Hemoglobin 32.6 pg (28.0-34.0); Mean Corpuscular Volume 99.7 fL (81-99); Mean Platelet Volume 10.7 fL (7.4-10.4); Monocytes # 0.6 10^3/uL (0.2-0.9); Monocytes % 7.9 %; Neutrophils # 4.67 10^3/uL (1.8-7.7); Neutrophils % 58.9 %; Nucleated Red Blood Cells % 0 %; Platelet Count 315 10^3/cmm (130-400); Red Blood Count 3.84 10^6/uL (4.1-5.3); Red Cell Distribution Width 12.8 % (12.1-15.1); White Blood Count 7.9 10^3/uL (4.0-10.0)
[2021-04-05 09:58] LABS: Protein Urine 1+ (Negative); Specific Gravity, Urine 1.015 (1.005-1.030); Urine Appearance Hazy (CLEAR); Urine Color Yellow (Yellow); pH Urine 5 (5-7)
[2021-04-05 09:59] LABS: Add Urine Microscopic? NO; Bacteria Urine 2+ /hpf; Bilirubin Urine Neg (Negative); Blood Urine Neg (Negative); Glucose Urine UA Norm (Normal); Ketones Urine Negative (Negative); Leukocyte Esterase Urine 1+ (Negative); Nitrate Urine Negative (Negative); Urobilinogen Urine Norm (Negative); WBC Urine 15-25 /hpf (0-5)
[2021-04-05 10:00] LABS: Add Urine Culture? Yes
[2021-04-05 10:06] LABS: Alanine Aminotransferase 16 U/L (0-33); Albumin Level 3.7 g/dL (3.5-5.2); Alkaline Phosphatase 92 IU/L (35-105); Amylase 170 U/L (28-100); Anion Gap 13.9 (5-19); Aspartate Amino Transferase 29 U/L (0-32); Blood Urea Nitrogen 20 mg/dL (6-20); Calcium 8.9 mg/dL (8.5-10.5); Carbon Dioxide 25 mmol/L (22-29); Chloride 104 mmol/L (98-107); Glomerular Filtration Rate 41.9 mL/min (90-130); Glucose 96 mg/dL (65-115); Lipase 172 U/L (13-60); Magnesium 1.9 mg/dL (1.7-2.3); Osmolality Calculated 290 mOsm/kg (285-295); Phosphorus 3.4 mg/dL (2.5-4.5); Potassium 3.9 mmol/L (3.5-5.1); Sodium 139 mmol/L (136-145); Total Bilirubin 0.3 mg/dL (0.15-1.2); Total Protein 6.7 g/dL (6.6-8.7); Uric Acid 4.3 mg/dL (2.4-5.7)
[2021-04-05 10:14] LABS: Urine Creatinine 68 mg/dL (28-217)
[2021-04-05 10:15] LABS: UPRO/UCREAT Ratio 0.87 mg/mg CR; Urine Protein Random 59 mg/dL
[2021-04-06 11:46] LABS: HEP C RNA Viral Load Quant <1.18 NOT DETECTED Log IU/mL (NOT DETECTED); HEP C RNA Viral Load Quant <15 NOT DETECTED IU/mL (NOT DETECTED)
== END 2021-04-05 08:16 | disposition home or self-care (01) ==
LOC: LAB 08:19
PROVIDERS: PCP Family Medicine; Visit Provider Specialist
DX: B19.20 Unspecified viral hepatitis C without hepatic coma (principal); Z94.0 Kidney transplant status; Z79.899 Other long term (current) drug therapy; D84.9 Immunodeficiency, unspecified; R80.8 Other proteinuria; Z94.83 Pancreas transplant status; E10.22 Type 1 diabetes mellitus with diabetic chronic kidney disease; N18.30 Chronic kidney disease, stage 3 unspecified
CPT/HCPCS: 36415; 80053; 80197; 81001; 82150; 82570; 83690; 83735; 84100; 84156; 84550; 85025; 87040; 87086; 87522

== ENCOUNTER 2021-07-27 08:14 | Outpatient (CLI) | payer MEDICARE, MEDICAID, SELFPAY ==
[2021-07-27 09:14] LABS: Basophils # 0.1 10^3/uL (0.0-0.1); Basophils % 0.9 %; Eosinophils # 0.3 10^3/uL (0.0-0.8); Eosinophils % 3.8 %; Hematocrit 38.6 % (37.0-47.0); Hemoglobin 12.5 g/dL (11.5-15.3); Lymphocytes # 1.3 10^3/uL (0.8-4.8); Lymphocytes % 15.3 %; Mean Corpuscular HGB Conc 32.4 g/dL (30.0-36.0); Mean Corpuscular Hemoglobin 31.6 pg (28.0-34.0); Mean Corpuscular Volume 97.7 fl (81-99); Mean Platelet Volume 11.2 fL (7.4-10.4); Monocytes # 0.5 10^3/uL (0.2-0.9); Monocytes % 6.5 %; Neutrophils # 5.98 10^3/uL (1.8-7.7); Neutrophils % 73.4 %; Nucleated Red Blood Cells % 0 %; Platelet Count 307 10^3/cmm (130-400); Red Blood Count 3.95 10^6/uL (4.1-5.3); Red Cell Distribution Width 13.6 % (12.1-15.1); White Blood Count 8.2 10^3/uL (4.0-10.0)
[2021-07-27 10:01] LABS: Bilirubin Urine Neg (Negative); Blood Urine Neg (Negative); Glucose Urine UA Norm (Normal); Ketones Urine Negative (Negative); Leukocyte Esterase Urine Negative (Negative); Nitrate Urine Negative (Negative); Protein Urine 3+ (Negative); Urine Appearance Clear (CLEAR); Urine Color Yellow (Yellow); Urobilinogen Urine Norm (Negative); pH Urine 5 (5-7)
[2021-07-27 10:29] LABS: Creatinine Urine, Random 259 mg/dL (28-217)
[2021-07-27 10:30] LABS: Add Urine Culture? No; Bacteria Urine 1+ /hpf; Hyaline Casts Urine 0-4 /lpf; Mucus Urine 1+ /hpf; Squamous Epithelial Cell Urine 15-25 /hpf (0-5); WBC Urine 0-4 /hpf (0-5)
[2021-07-27 10:50] LABS: Microalbum Creatinine Ratio Ur 575 mg/dL (0-20); Microalbumin Random Urine 149 ug/dL (0-20)
== END 2021-07-27 08:15 | disposition home or self-care (01) ==
LOC: LAB 08:18
PROVIDERS: PCP Family Medicine; Visit Provider Specialist
DX: Z94.0 Kidney transplant status (principal); D84.9 Immunodeficiency, unspecified; Z79.899 Other long term (current) drug therapy; Z87.898 Personal history of other specified conditions; R80.8 Other proteinuria; E10.22 Type 1 diabetes mellitus with diabetic chronic kidney disease; N18.30 Chronic kidney disease, stage 3 unspecified; Z94.83 Pancreas transplant status
CPT/HCPCS: 36415; 80197; 81001; 82044; 85025

== ENCOUNTER 2021-07-28 08:34 | Outpatient (CLI) | payer MEDICARE, MEDICAID, SELFPAY ==
[2021-07-28 10:11] LABS: Alanine Aminotransferase 14 U/L (0-33); Albumin Level 3.8 g/dL (3.5-5.2); Alkaline Phosphatase 80 IU/L (35-105); Amylase 58 U/L (28-100); Anion Gap 11.2 (5-19); Aspartate Amino Transferase 20 U/L (0-32); Blood Urea Nitrogen 26 mg/dL (8-23); Carbon Dioxide 26 mmol/L (22-29); Chloride 106 mmol/L (98-107); Glomerular Filtration Rate 50.7 mL/min (90-130); Glucose 86 mg/dL (65-115); Lipase 16 U/L (13-60); Magnesium 1.9 mg/dL (1.7-2.3); Osmolality Calculated 292 mOsm/kg (285-295); Phosphorus 3.2 mg/dL (2.5-4.5); Potassium 4.2 mmol/L (3.5-5.1); Sodium 139 mmol/L (136-145); Total Bilirubin 0.3 mg/dL (0.15-1.2); Total Protein 6.8 g/dL (6.6-8.7); Uric Acid 4.1 mg/dL (2.4-5.7)
== END 2021-07-28 08:35 | disposition home or self-care (01) ==
PROVIDERS: PCP Family Medicine; Visit Provider Specialist
DX: Z94.0 Kidney transplant status (principal); Z79.899 Other long term (current) drug therapy; D84.9 Immunodeficiency, unspecified; Z87.898 Personal history of other specified conditions; R80.8 Other proteinuria; E10.22 Type 1 diabetes mellitus with diabetic chronic kidney disease; N18.30 Chronic kidney disease, stage 3 unspecified; Z94.83 Pancreas transplant status
CPT/HCPCS: 36415; 80053; 82150; 83690; 83735; 84100; 84550

== ENCOUNTER 2021-10-04 08:09 | Outpatient (CLI) | payer MEDICARE, MEDICAID, SELFPAY ==
[2021-10-04 08:55] LABS: Add Urine Microscopic? NO
[2021-10-04 08:59] LABS: Basophils # 0.1 10^3/uL (0.0-0.1); Basophils % 0.7 %; Eosinophils # 0.2 10^3/uL (0.0-0.8); Eosinophils % 2.5 %; Hematocrit 37.6 % (37.0-47.0); Hemoglobin 12.4 g/dL (11.5-15.3); Lymphocytes # 1.5 10^3/uL (0.8-4.8); Lymphocytes % 19.4 %; Mean Corpuscular Volume 97.2 fl (81-99); Mean Platelet Volume 9.9 fL (7.4-10.4); Monocytes # 0.6 10^3/uL (0.2-0.9); Monocytes % 7.8 %; Neutrophils # 5.19 10^3/uL (1.8-7.7); Neutrophils % 69.3 %; Nucleated Red Blood Cells % 0 %; Platelet Count 301 10^3/cmm (130-400); Red Blood Count 3.87 10^6/uL (4.1-5.3); Red Cell Distribution Width 13.8 % (12.1-15.1); White Blood Count 7.5 10^3/uL (4.0-10.0)
[2021-10-04 09:17] LABS: Alanine Aminotransferase 16 U/L (0-33); Albumin Level 4.2 g/dL (3.5-5.2); Alkaline Phosphatase 68 IU/L (35-105); Amylase 54 U/L (28-100); Anion Gap 13.6 (5-19); Aspartate Amino Transferase 22 U/L (0-32); Blood Urea Nitrogen 36 mg/dL (8-23); Calcium 8.9 mg/dL (8.5-10.5); Carbon Dioxide 24 mmol/L (22-29); Chloride 105 mmol/L (98-107); Globulin 2.8 g/dL (1.3-4.6); Glomerular Filtration Rate 41.8 mL/min (90-130); Glucose 88 mg/dL (65-115); Lipase 22 U/L (13-60); Magnesium 1.7 mg/dL (1.7-2.3); Osmolality Calculated 294 mOsm/kg (285-295); Potassium 4.6 mmol/L (3.5-5.1); Sodium 138 mmol/L (136-145); Total Bilirubin 0.3 mg/dL (0.15-1.2); Uric Acid 4.5 mg/dL (2.4-5.7)
[2021-10-04 09:35] LABS: Urine Creatinine 45 mg/dL (28-217); Urine Protein Random 16 mg/dL
[2021-10-04 09:37] LABS: UPRO/UCREAT Ratio 0.36 mg/mg CR
[2021-10-04 10:06] LABS: Add Urine Culture? No; Bacteria Urine TRACE /hpf; Bilirubin Urine Neg (Negative); Blood Urine Neg (Negative); Glucose Urine UA Norm (Normal); Ketones Urine Negative (Negative); Leukocyte Esterase Urine Negative (Negative); Nitrate Urine Negative (Negative); Protein Urine Neg (Negative); Urine Appearance Clear (CLEAR); Urine Color Straw (Yellow); Urobilinogen Urine Norm (Negative); pH Urine 5 (5-7)
[2021-12-21 09:05] LABS: Basophils # 0.1 10^3/uL (0.0-0.1); Basophils % 0.8 %; Eosinophils # 0.2 10^3/uL (0.0-0.8); Eosinophils % 2.2 %; Hematocrit 42.4 % (37.0-47.0); Hemoglobin 13.5 g/dL (11.5-15.3); Lymphocytes # 1.6 10^3/uL (0.8-4.8); Lymphocytes % 17.4 %; Mean Corpuscular HGB Conc 31.8 g/dL (30.0-36.0); Mean Corpuscular Hemoglobin 31.1 pg (28.0-34.0); Mean Corpuscular Volume 97.7 fl (81-99); Mean Platelet Volume 10.8 fL (7.4-10.4); Monocytes # 0.6 10^3/uL (0.2-0.9); Monocytes % 6.3 %; Neutrophils # 6.61 10^3/uL (1.8-7.7); Neutrophils % 73.1 %; Nucleated Red Blood Cells % 0 %; Platelet Count 360 10^3/cmm (130-400); Red Blood Count 4.34 10^6/uL (4.1-5.3); Red Cell Distribution Width 13.3 % (12.1-15.1)
[2021-12-21 09:14] LABS: Bilirubin Urine Neg (Negative); Blood Urine Neg (Negative); Glucose Urine UA Norm (Normal); Ketones Urine Negative (Negative); Leukocyte Esterase Urine Negative (Negative); Nitrate Urine Negative (Negative); Protein Urine 1+ (Negative); Specific Gravity, Urine 1.015 (1.005-1.030); Urine Appearance Clear (CLEAR); Urine Color Yellow (Yellow); Urobilinogen Urine Norm (Negative); pH Urine 5 (5-7)
[2021-12-21 09:25] LABS: INR 0.88 (0.8-1.2)
[2021-12-21 09:32] LABS: Alanine Aminotransferase 19 U/L (0-33); Albumin Level 4.7 g/dL (3.5-5.2); Alkaline Phosphatase 91 IU/L (35-105); Anion Gap 15.6 (5-19); Aspartate Amino Transferase 30 U/L (0-32); Blood Urea Nitrogen 27 mg/dL (8-23); Calcium 9.8 mg/dL (8.5-10.5); Carbon Dioxide 24 mmol/L (22-29); Chloride 103 mmol/L (98-107); Globulin 3.7 g/dL (1.3-4.6); Glomerular Filtration Rate 45.8 mL/min (90-130); Glucose 101 mg/dL (65-115); Osmolality Calculated 291 mOsm/kg (285-295); Potassium 4.6 mmol/L (3.5-5.1); Sodium 138 mmol/L (136-145); Total Bilirubin 0.4 mg/dL (0.15-1.2); Total Protein 8.4 g/dL (6.6-8.7)
[2021-12-21 10:03] LABS: Bacteria Urine TRACE /hpf; RBC Urine RARE /hpf (0-2); WBC Urine 0-4 /hpf (0-5)
[2021-12-22 23:22] LABS: HEP C RNA Viral Load Quant <1.18 NOT DETECTED Log IU/mL (NOT DETECTED); HEP C RNA Viral Load Quant <15 NOT DETECTED IU/mL (NOT DETECTED)
== END 2021-10-04 08:10 | disposition home or self-care (01) ==
LOC: LAB 08:13
PROVIDERS: PCP Family Medicine; Visit Provider Specialist
DX: Z94.0 Kidney transplant status (principal); Z79.899 Other long term (current) drug therapy; Z94.83 Pancreas transplant status; T86.11 Kidney transplant rejection; D84.9 Immunodeficiency, unspecified; E10.22 Type 1 diabetes mellitus with diabetic chronic kidney disease; N18.30 Chronic kidney disease, stage 3 unspecified; Z87.898 Personal history of other specified conditions; R80.8 Other proteinuria
CPT/HCPCS: 36415; 80053; 80197; 81001; 82150; 82570; 83690; 83735; 84100; 84156; 84550; 85025

== ENCOUNTER 2021-12-21 08:28 | Outpatient (CLI) | payer MEDICARE, MEDICAID, SELFPAY | END 2021-12-21 08:29 | disposition home or self-care (01) | PROVIDERS: PCP Family Medicine; Visit Provider Nurse Practitioner Adult Health | DX: K76.9 Liver disease, unspecified (principal); Z86.19 Personal history of other infectious and parasitic diseases | CPT/HCPCS: 80053; 80197; 81001; 85025; 85610; 87086; 87522 ==

== ENCOUNTER 2022-01-03 10:54 | Emergency (ER) | payer MEDICARE, MEDICAID, SELFPAY ==
[2022-01-03] VITALS (13 sets, daily range): BP systolic 108–204; BP diastolic 57–104; PULSE 66–87; RESP 16–25; TEMP 36.8–36.9; O2SAT 96–100; BMI 19.0
--- NOTE | 2022-01-03 12:25 | ECG_ITS ---
[facility] Test Date: 2022-01-03 Pat Name: Yu Nunez Department: Room: Gender: Female Medical Device: : 1960 Requested By: Leighton Marie Order Number: [id number] Yon MD: Joseph Leonard M.D. Measurements Intervals [place] Rate: 70 P: 70 MI: 158 QRS: 70 QRSD: 78 T: 67 QT: 385 QTc: 418 Interpretive Statements SINUS RHYTHM No previous ECG available for comparison Electronically Signed On 01-03-2022 22:02:52 CDT by Joseph Leonard M.D. [email or web address]
--- NOTE | 2022-01-03 12:45 | PC.NURSE ---
Reports taking OTC antibotics from pet store that are for fish rot. She reports doing this for abscessed tooth.
--- NOTE | 2022-01-03 12:47 | W.ED.GENADLT ---
HPI - General Adult General: Chief complaint: General Medical Stated complaint: Sent by Bess Ferguson for high BP Time Seen by Provider: 01/03/22 12:24 History of Present Illness: Patient is a 61-year-old female with a history of kidney and pancreas transplant who presents the emergency room for evaluation of elevated blood pressure. Patient tells me since last March, he she has had elevated blood pressure. Patient is on losartan 50 mg or carvedilol 6.25 mg. Patient went to see Dr. Ferguson was told to come to the emergency room given significant elevated blood pressure 230/110. Patient has no urinary complaint, no signs of leg swelling or shortness of breath. Earlier this morning, patient had of transient sharp chest pain on the right side of the chest lasting for few seconds at a time at 5 AM and at 6 AM. Patient has not had any further episodes of chest pain. Patient denies any pressure-like chest pain, pleuritic chest pain, exertional chest pain. Patient denies any fever or chills, dysuria, hematuria or polyuria. Patient has no other abdominal complaints at this time. Patient is followed by her transplant doctor at [facility] in [place]. Last time patient was seen and evaluated by transplant team was 6 months ago. In addition, patient complains of right upper tooth ache and recently patient took 250mg of amoxicillin which she obtained from the fish store. Onset: chronic, acutely worsen today Duration:ongoing Location:home Severity:moderate Associated symptoms: Deny chest pain, dyspnea, nausea, rash, palpitations or vomiting Review of Systems Const: Denies: fever(s) or chills Eyes: Denies: change in vision ENMT: Reports: other (+tooth ache); Denies: mouth pain Card: Denies: chest pain or palpitations Resp: Denies: dyspnea or non-productive cough GI: Denies: abdominal pain, nausea, vomiting or diarrhea : Denies: dysuria Musc: Denies: extremity pain Skin/Breast: Denies: rash or new lesions Neuro: Denies: weakness in extremities Psych: Reports: other (Normal mood) Ishan/Lymph: Denies: easy bruising PFS ED PFSH: Medical History (Updated 01/03/22 @ 17:01 by Leighton Marie MD) Hepatitis C Post hysterectomy menopause Surgical History (Updated 01/03/22 @ 12:51 by Leighton Marie MD) Arteriovenous fistula removed Renal transplant recipient Transplant Social History (Updated 01/03/22 @ 12:51 by Leighton Marie MD) Smoking and tobacco status: never smoked Alcohol intake: never Substance/Drug Use: never Physical Exam Const: COMMON NORMALS: alert HENMT: COMMON NORMALS: atraumatic HEAD & SCALP: atraumatic MOUTH: moist mucous membranes not abnormal Eye: COMMON NORMALS: EOMs intact bilaterally and conjunctivae normal CONJUNCTIVA: Yes conjunctivae normal Neck/C-Spine: COMMON NORMALS: full ROM and supple Resp: COMMON NORMALS: normal respiratory effort and clear to auscultation bilaterally AUSCULTATION: clear to auscultation bilaterally Cardio: COMMON NORMALS: regular rate RATE: regular rate GI: COMMON NORMALS: Soft to palpation and non-tender PALPATION: Yes Soft to palpation OTHER: No focal TTP. NO guarding rebound, guarding, rigidity. No CVA tenderness to percussion. Neg Wilkes/Neg McBurney's point tenderness, no suprabupic tenderness to palpation. Extremity: COMMON NORMALS: full ROM Neuro: SENSORIUM/ORIENTATION: Yes alert MOTOR EXAM: No Abnormal motor strength present and Other motor observations present (no focal motor deficits) Psych: COMMON NORMALS: speech normal SPEECH: Yes normal speech MOOD & AFFECT: Yes euthymic mood Course Vital Signs: Vital signs: Vital Signs Temperature 98.2 F 01/03/22 12:42 Pulse Rate 85 01/03/22 19:30 Respiratory Rate 18 01/03/22 19:30 Blood Pressure 147/82 01/03/22 19:30 Pulse Oximetry 98 01/03/22 19:30 [facility] - General Adult Medical Decision Making Patient is 61-year-old female with history of kidney/pancreas transplant, hepatitis C fully treated presenting to the emergency room for evaluation of elevated blood pressure. On arrival, patient had a blood pressure of 175/103. Rest of the physical exam within normal. Cr is noted to be 1.5 up from baseline 1.2-1.3. Patient is also noted to be hyperkalemic with potassium of 5.6. EKG did not show any signs of hyperkalemia. Patient received 40 mg of Lasix, 2L of NS, and amlodipine/hydralazine. She has been able to urinate without difficulty. Repeat blood work showed a potassium of 3.7, creatinine of 1.3 downtrending from 1.5 initially. Blood pressure improved with medication. At 8:00pmpm, I have discussed with Dr. Otoole from kidney transplant team at [facility] who tells me that since patient has had her transplant long ago, her blood pressure is improving, potassium Cr have improved on repeat blood work that the provider is OK with patiet having close follow-up with the patient in the next few days. Patient tells me that she has an appointment with renal transplant on Monday morning at 8am. I have given patient close follow-up with renal transplant team for further evaluation of her elevated blood pressure and creatinine elevation. Patient verbalized understanding. Patient is given strict return precaution for any signs of worsening blood pressure, difficulty urinating, shortness of breath, or any new or concerning complaints at these can be signs of chronic rejection. Patient's Coreg dose has been increased to 25 mg BID for elevated blood pressure. Rx coreg 25mg BID for hypertension Disposition: Discharge. Patient counseled regarding diagnostic impression, treatment plan. Patient given ED strict return precautions to return for continuation, worsening, or development of new symptoms. Instructed to f/u w/ PCP regarding symptoms today. Patient verbalized understanding. Lab Data : 01/03/22 12:35 01/03/22 17:00 Laboratory Results WBC 9.5 10^3/uL (4.0-10.0) 01/03/22 12:35 RBC 3.80 10^6/uL (4.1-5.3) L 01/03/22 12:35 Hgb 12.1 g/dL (11.5-15.3) 01/03/22 12:35 Hct 36.7 % (37.0-47.0) L 01/03/22 12:35 MCV 96.6 fl (81-99) 01/03/22 12:35 MCH 31.8 pg (28.0-34.0) 01/03/22 12:35 MCHC 33.0 g/dL (30.0-36.0) 01/03/22 12:35 RDW 13.0 % (12.1-15.1) 01/03/22 12:35 Plt Count 301 10^3/cmm (130-400) 01/03/22 12:35 MPV 10.5 fL (7.4-10.4) H 01/03/22 12:35 Neut % (Auto) 73.3 % 01/03/22 12:35 Lymph % (Auto) 19.4 % 01/03/22 12:35 [place] % (Auto) 5.7 % 01/03/22 12:35 Eos % (Auto) 0.8 % 01/03/22 12:35 Baso % (Auto) 0.5 % 01/03/22 12:35 Neut # (Auto) 6.98 10^3/uL (1.8-7.7) 01/03/22 12:35 Lymph # (Auto) 1.9 10^3/uL (0.8-4.8) 01/03/22 12:35 [place] # (Auto) 0.5 10^3/uL (0.2-0.9) 01/03/22 12:35 Eos # (Auto) 0.1 10^3/uL (0.0-0.8) 01/03/22 12:35 Baso # (Auto) 0.1 10^3/uL (0.0-0.1) 01/03/22 12:35 Nucleated RBC % (auto) 0 % 01/03/22 12:35 Nucleated RBCs # 0.0 /100WBC 01/03/22 12:35 Sodium 136 mmol/L (136-145) 01/03/22 17:00 Potassium 3.7 mmol/L (3.5-5.1) 01/03/22 17:00 Chloride 105 mmol/L (98-107) 01/03/22 17:00 Carbon Dioxide 18 mmol/L (22-29) L 01/03/22 17:00 Anion Gap 16.7 (5-19) 01/03/22 17:00 BUN 29 mg/dL (8-23) H 01/03/22 17:00 Creatinine 1.3 mg/dL (0.5-0.9) H 01/03/22 17:00 GFR Calculation 41.8 mL/min (90-130) L 01/03/22 17:00 Glucose 128 mg/dL (65-115) H 01/03/22 17:00 Calculated Osmolality 289 mOsm/kg (285-295) 01/03/22 17:00 Calcium 8.6 mg/dL (8.5-10.5) 01/03/22 17:00 Total Bilirubin 0.4 mg/dL (0.15-1.2) 01/03/22 17:00 AST 22 U/L (0-32) 01/03/22 17:00 ALT 12 U/L (0-33) 01/03/22 17:00 Alkaline Phosphatase 65 IU/L (35-105) 01/03/22 17:00 Troponin T Baseline 12 ng/L (0-10) H 01/03/22 12:35 Troponin T 120 Minute 11.35 ng/L (0-10) H 01/03/22 14:34 Delta Troponin T -0.65 ABS# (0-10) L 01/03/22 14:34 Total Protein 6.5 g/dL (6.6-8.7) L 01/03/22 17:00 Albumin 4.0 g/dL (3.5-5.2) 01/03/22 17:00 Globulin 2.5 g/dL (1.3-4.6) 01/03/22 17:00 Discharge Plan Discharge Patient Disposition: Home Clinical Impression: Acute kidney injury superimposed on CKD, Hypertension Prescriptions: New Coreg 25 mg tablet 25 mg PO BID 10 Days Qty: 20 0RF Rx Instructions: must administer with a meal/food Discontinued carvedilol 6.25 mg tablet 12.5 mg PO BID 0RF No Action loperamide 2 mg capsule 2 mg PO TID PRN (Reason: Diarrhea) 0RF magnesium oxide 400 mg (241.3 mg magnesium) tablet 400 mg PO DAILY@1430 0RF fluticasone propionate 50 mcg/actuation spray,suspension 1 spray INTRANASAL DAILY@2100 0RF tacrolimus 0.5 mg capsule 1 mg PO BID 0RF Rx Instructions: TAKE 1 MG AT 1130 AND 1 MG AT 1530 mycophenolate sodium 180 mg tablet,delayed release (DR/EC) 180 mg PO BID@11,21 0RF PrePlus 27 mg iron- 1 mg tablet 1 tab PO DAILY@0700 0RF ascorbic acid (vitamin C) [Vitamin C] 500 mg Tablet 500 mg PO BID@0700,1730 0RF aspirin 81 mg Tablet,Chewable 81 mg PO DAILY@2100 0RF vitamin E acetate 200 unit Capsule 400 unit PO DAILY@0700 0RF losartan 50 mg tablet 50 mg PO BID 0RF Discharge Orders: Discharge ED (Routine); Ordered 01/03/22 Ordered By: Leighton Marie Referrals: Ale Olivier MD [Primary Care Provider] - Discharge Diet: Advance as tolerated Discharge Activity: Increase activity as tolerated Patient Instructions: Hypertension (ED) Activity Restrictions/Additional Instructions: Please come back to the emergency room if you notice any difficulty urinating, any fever or chills, any elevated blood pressure, or any new or concerning complaints. Please take 25 mg of Coreg daily. Please follow-up with your transplant doctor for further evaluation of your elevated blood pressure. Coding Level of Care Code ED Recreational Specialist for Chg Fwd Exam Comprehensive
[2022-01-03 12:49] LABS: Basophils # 0.1 10^3/uL (0.0-0.1); Basophils % 0.5 %; Eosinophils # 0.1 10^3/uL (0.0-0.8); Eosinophils % 0.8 %; Hematocrit 36.7 % (37.0-47.0); Hemoglobin 12.1 g/dL (11.5-15.3); Lymphocytes # 1.9 10^3/uL (0.8-4.8); Lymphocytes % 19.4 %; Mean Corpuscular Hemoglobin 31.8 pg (28.0-34.0); Mean Corpuscular Volume 96.6 fl (81-99); Mean Platelet Volume 10.5 fL (7.4-10.4); Monocytes # 0.5 10^3/uL (0.2-0.9); Monocytes % 5.7 %; Neutrophils # 6.98 10^3/uL (1.8-7.7); Neutrophils % 73.3 %; Nucleated Red Blood Cells % 0 %; Platelet Count 301 10^3/cmm (130-400); White Blood Count 9.5 10^3/uL (4.0-10.0)
[2022-01-03] MEDS: amlodipine 5 mg Tablet PO (12:57)
[2022-01-03 13:13] LABS: Troponin(5th) Baseline 12 ng/L (0-10)
[2022-01-03 13:42] LABS: Blood Urea Nitrogen 29 mg/dL (8-23); Calcium 9.6 mg/dL (8.5-10.5); Carbon Dioxide 23 mmol/L (22-29); Chloride 99 mmol/L (98-107); Glomerular Filtration Rate 35.4 mL/min (90-130); Glucose 97 mg/dL (65-115); Osmolality Calculated 284 mOsm/kg (285-295); Sodium 134 mmol/L (136-145)
[2022-01-03 13:44] LABS: Anion Gap 17.6 (5-19); Potassium 5.6 mmol/L (3.5-5.1)
--- NOTE | 2022-01-03 13:52 | ECG_ITS ---
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 Measurements Intervals [place] Rate: 70 P: 68 CT: 153 QRS: 71 QRSD: 81 T: 74 QT: 394 QTc: 425 Interpretive Statements SINUS RHYTHM Compared to ECG 01/03/2022 14:02:17 No significant changes Electronically Signed On 01-03-2022 22:02:07 CDT by Joseph Leonard M.D. [id number]
[2022-01-03] MEDS: FUROsemide 10 mg/mL SDV 4mL 40 MG IVP (13:57)
[2022-01-03] MEDS: sodium chloride 0.9% 1,000 ML 999 ML IV ×2 (14:20→16:13)
--- NOTE | 2022-01-03 14:23 | USCV_ITS ---
Yu Nunez Age: 61 Gender: F : 1960 Exam Date: 01/03/2022 14:58 Ordering Phys: Leighton Marie MD Technologist: Catalino Colon Exam Location: [facility] Indication: new onset of htn Aortic Velocity @ SMA (cm/s) 119 RIGHT KIDNEY LEFT KIDNEY Velocity (cm/s) Velocity (cm/s) Sys/Mary Sys/Mary Resistive Index Resistive Index / Proximal Renal Artery 214.8 / 38.4 0.82 / Mid Renal Artery 194.5 / 40.7 0.82 / Distal Renal Artery 149.7 / 34.7 0.72 / Upper Pole 90.5 / 27.0 0.70 / Mid Pole 92.3 / 20.5 0.78 / Lower Pole 75.5 / 16.8 0.74 Renal Aortic Ratio 1.80 Kidney Length (mm) 11.0 FINDINGS normal arterial and venous flow in transplant kidney in lt pelvis CONCLUSIONS Mild increased systolic flow velocities (>190cm/s) with slight spectral broadening noted in the proximal and mid renal allograft artery, suggesting hemodynamically significant stenosis approaching 60%. Distal artery is patent with slightly reduced velocities. The renal allograft is located in the left iliac fossa. Kidney measures 11.0cm pole to pole. No hydronephrosis. [place] kidneys are atrophic. Resistive index <0.8 noted in the renal allograft within normal limits Renal vein anastomosis is patent. Tushar Dixon MD (Electronically Signed) Final Date: 05 January 2022 11:01 S
--- NOTE | 2022-01-03 14:25 | ECG_ITS ---
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 Measurements Intervals [place] Rate: 72 P: 61 OK: 155 QRS: 68 QRSD: 85 T: 71 QT: 395 QTc: 435 Interpretive Statements SINUS RHYTHM Compared to ECG 01/03/2022 12:36:44 No significant changes Electronically Signed On 01-03-2022 22:05:17 CDT by Joseph Leonard M.D. [id number]
[2022-01-03] MEDS: hyDRALAzine 20 mg/mL INJ 1 mL IVP (14:48)
[2022-01-03 15:07] LABS: Alanine Aminotransferase 14 U/L (0-33); Alkaline Phosphatase 67 IU/L (35-105); Aspartate Amino Transferase 30 U/L (0-32); Blood Urea Nitrogen 29 mg/dL (8-23); Calcium 9.4 mg/dL (8.5-10.5); Carbon Dioxide 18 mmol/L (22-29); Chloride 99 mmol/L (98-107); Globulin 2.8 g/dL (1.3-4.6); Glomerular Filtration Rate 38.4 mL/min (90-130); Glucose 89 mg/dL (65-115); Osmolality Calculated 275 mOsm/kg (285-295); Sodium 130 mmol/L (136-145); Total Bilirubin 0.4 mg/dL (0.15-1.2); Total Protein 6.8 g/dL (6.6-8.7)
[2022-01-03 15:08] LABS: Troponin 5 2HR 11.35 ng/L (0-10)
[2022-01-03 15:11] LABS: Anion Gap 17.8 (5-19); Potassium 4.8 mmol/L (3.5-5.1)
[2022-01-03 15:12] LABS: Troponin 5 2HR Delta -0.65 ABS# (0-10)
[2022-01-03] MEDS: ondansetron 2 mg/ML SDV 2 mL 4 MG IVP (15:58)
[2022-01-03 17:36] LABS: Alanine Aminotransferase 12 U/L (0-33); Alkaline Phosphatase 65 IU/L (35-105); Anion Gap 16.7 (5-19); Aspartate Amino Transferase 22 U/L (0-32); Blood Urea Nitrogen 29 mg/dL (8-23); Calcium 8.6 mg/dL (8.5-10.5); Carbon Dioxide 18 mmol/L (22-29); Chloride 105 mmol/L (98-107); Globulin 2.5 g/dL (1.3-4.6); Glomerular Filtration Rate 41.8 mL/min (90-130); Glucose 128 mg/dL (65-115); Osmolality Calculated 289 mOsm/kg (285-295); Potassium 3.7 mmol/L (3.5-5.1); Sodium 136 mmol/L (136-145); Total Bilirubin 0.4 mg/dL (0.15-1.2); Total Protein 6.5 g/dL (6.6-8.7)
== END 2022-01-03 19:49 | disposition home or self-care (01) ==
PROVIDERS: Emergency Provider Emergency Medicine; PCP Family Medicine
DX: I12.9 Hypertensive chronic kidney disease with stage 1 through stage 4 chronic kidney disease, or unspecified chronic kidney disease (principal); N18.9 Chronic kidney disease, unspecified; Z86.19 Personal history of other infectious and parasitic diseases; Z94.0 Kidney transplant status; Z94.83 Pancreas transplant status
CPT/HCPCS: 36415; 80048; 80053; 84484; 85025; 93005; 93975; 96361; 96374; 96375; 99284; J0360; J1940; J2405; J7030

== ENCOUNTER 2022-01-28 09:44 | Outpatient (CLI) | payer MEDICARE, MEDICAID, SELFPAY ==
[2022-01-28 10:41] LABS: Basophils # 0.1 10^3/uL (0.0-0.1); Basophils % 0.7 %; Eosinophils # 0.1 10^3/uL (0.0-0.8); Eosinophils % 1.6 %; Hematocrit 37.6 % (37.0-47.0); Hemoglobin 12.2 g/dL (11.5-15.3); Lymphocytes # 1.5 10^3/uL (0.8-4.8); Lymphocytes % 17.9 %; Mean Corpuscular HGB Conc 32.4 g/dL (30.0-36.0); Mean Corpuscular Hemoglobin 31.4 pg (28.0-34.0); Mean Corpuscular Volume 96.9 fl (81-99); Mean Platelet Volume 10.7 fL (7.4-10.4); Monocytes # 0.6 10^3/uL (0.2-0.9); Monocytes % 7.1 %; Neutrophils # 6.02 10^3/uL (1.8-7.7); Neutrophils % 72.6 %; Nucleated Red Blood Cells % 0 %; Platelet Count 341 10^3/cmm (130-400); Red Blood Count 3.88 10^6/uL (4.1-5.3); Red Cell Distribution Width 13.6 % (12.1-15.1); White Blood Count 8.3 10^3/uL (4.0-10.0)
[2022-01-28 11:08] LABS: Alanine Aminotransferase 16 U/L (0-33); Albumin Level 4.3 g/dL (3.5-5.2); Alkaline Phosphatase 72 IU/L (35-105); Amylase 83 U/L (28-100); Anion Gap 17.4 (5-19); Aspartate Amino Transferase 25 U/L (0-32); Blood Urea Nitrogen 38 mg/dL (8-23); Calcium 8.9 mg/dL (8.5-10.5); Carbon Dioxide 23 mmol/L (22-29); Chloride 103 mmol/L (98-107); Creatine Phosphokinase 57 U/L (26-192); Gamma Glutamyl Transferase 13 U/L (5-36); Globulin 3.2 g/dL (1.3-4.6); Glomerular Filtration Rate 30.7 mL/min (90-130); Glucose 107 mg/dL (65-115); Lipase 12 U/L (13-60); Osmolality Calculated 298 mOsm/kg (285-295); Phosphorus 3.8 mg/dL (2.5-4.5); Potassium 4.4 mmol/L (3.5-5.1); Sodium 139 mmol/L (136-145); Total Bilirubin 0.3 mg/dL (0.15-1.2); Total Protein 7.5 g/dL (6.6-8.7); Uric Acid 4.6 mg/dL (2.4-5.7)
[2022-01-28 11:14] LABS: Add Urine Microscopic? NO; Charge for UA Resulting for Rev
[2022-01-28 11:26] LABS: Bilirubin Urine Neg (Negative); Blood Urine Neg (Negative); Glucose Urine UA Norm (Normal); Ketones Urine Negative (Negative); Leukocyte Esterase Urine Negative (Negative); Nitrate Urine Negative (Negative); Protein Urine Neg (Negative); Specific Gravity, Urine 1.005 (1.005-1.030); Urine Appearance Clear (CLEAR); Urine Color Straw (Yellow); Urobilinogen Urine Norm (Negative); pH Urine 7 (5-7)
[2022-01-28 11:46] LABS: Creatinine Urine, Random 29 mg/dL (28-217); Microalbumin Random Urine 5 ug/dL (0-20)
[2022-01-28 11:46] LABS: 25 Hydroxy Vitamin D > 100 ng/mL (30-100)
[2022-01-28 11:49] LABS: Microalbum Creatinine Ratio Ur 172 mg/dL (0-20)
== END 2022-01-28 09:45 | disposition home or self-care (01) ==
PROVIDERS: PCP Family Medicine; Visit Provider Specialist
DX: Z79.899 Other long term (current) drug therapy (principal); Z94.0 Kidney transplant status; D84.9 Immunodeficiency, unspecified; E10.22 Type 1 diabetes mellitus with diabetic chronic kidney disease; N18.30 Chronic kidney disease, stage 3 unspecified; R80.8 Other proteinuria; Z87.898 Personal history of other specified conditions; Z94.83 Pancreas transplant status; B18.1 Chronic viral hepatitis B without delta-agent
CPT/HCPCS: 36415; 80053; 80197; 81003; 82044; 82150; 82306; 82550; 82977; 83690; 83735; 84100; 84550; 85025

== ENCOUNTER 2022-02-16 08:20 | Outpatient (CLI) | payer MEDICARE, MEDICAID, SELFPAY ==
[2022-02-16 09:30] LABS: Basophils # 0.1 10^3/uL (0.0-0.1); Basophils % 0.6 %; Eosinophils # 0.2 10^3/uL (0.0-0.8); Eosinophils % 2.5 %; Hematocrit 35.1 % (37.0-47.0); Hemoglobin 11.4 g/dL (11.5-15.3); Lymphocytes # 1.5 10^3/uL (0.8-4.8); Lymphocytes % 19.1 %; Mean Corpuscular HGB Conc 32.5 g/dL (30.0-36.0); Mean Corpuscular Hemoglobin 32.1 pg (28.0-34.0); Mean Corpuscular Volume 98.9 fl (81-99); Mean Platelet Volume 10.6 fL (7.4-10.4); Monocytes # 0.6 10^3/uL (0.2-0.9); Monocytes % 8.3 %; Neutrophils # 5.33 10^3/uL (1.8-7.7); Neutrophils % 69.1 %; Nucleated Red Blood Cells % 0 %; Platelet Count 286 10^3/cmm (130-400); Red Blood Count 3.55 10^6/uL (4.1-5.3); Red Cell Distribution Width 13.4 % (12.1-15.1); White Blood Count 7.7 10^3/uL (4.0-10.0)
[2022-02-16 09:53] LABS: Alanine Aminotransferase 16 U/L (0-33); Albumin Level 4.2 g/dL (3.5-5.2); Alkaline Phosphatase 66 IU/L (35-105); Amylase 54 U/L (28-100); Anion Gap 14.9 (5-19); Aspartate Amino Transferase 23 U/L (0-32); Blood Urea Nitrogen 39 mg/dL (8-23); Calcium 9.4 mg/dL (8.5-10.5); Carbon Dioxide 23 mmol/L (22-29); Chloride 106 mmol/L (98-107); Glomerular Filtration Rate 32.9 mL/min (90-130); Glucose 100 mg/dL (65-115); Lipase 13 U/L (13-60); Magnesium 2.2 mg/dL (1.7-2.3); Osmolality Calculated 299 mOsm/kg (285-295); Phosphorus 4.6 mg/dL (2.5-4.5); Potassium 3.9 mmol/L (3.5-5.1); Sodium 140 mmol/L (136-145); Total Bilirubin 0.2 mg/dL (0.15-1.2); Total Protein 7.2 g/dL (6.6-8.7)
[2022-02-16 10:00] LABS: Creatinine Urine, Random 38 mg/dL (28-217); Microalbumin Random Urine 3 ug/dL (0-20)
[2022-02-16 10:01] LABS: Microalbum Creatinine Ratio Ur 79 mg/dL (0-20)
[2022-02-16 10:06] LABS: Bilirubin Urine Neg (Negative); Blood Urine Neg (Negative); Glucose Urine UA Norm (Normal); Ketones Urine Negative (Negative); Leukocyte Esterase Urine Negative (Negative); Nitrate Urine Negative (Negative); Protein Urine Neg (Negative); Specific Gravity, Urine 1.015 (1.005-1.030); Urine Appearance Clear (CLEAR); Urine Color Yellow (Yellow); Urobilinogen Urine Norm (Negative); pH Urine 5 (5-7)
[2022-02-16 10:11] LABS: Renal Epithelial Cells Urine 4 /hpf; Squamous Epithelial Cell Urine RARE /hpf (0-5); WBC Urine RARE /hpf (0-5)
[2022-02-16 10:12] LABS: Add Urine Culture? No; Mucus Urine N /hpf
== END 2022-02-16 08:21 | disposition home or self-care (01) ==
LOC: LAB 08:23
PROVIDERS: PCP Family Medicine; Visit Provider Specialist
DX: D84.9 Immunodeficiency, unspecified (principal); E10.22 Type 1 diabetes mellitus with diabetic chronic kidney disease; N18.30 Chronic kidney disease, stage 3 unspecified; B18.1 Chronic viral hepatitis B without delta-agent; R80.8 Other proteinuria; Z94.83 Pancreas transplant status; Z94.0 Kidney transplant status; Z79.899 Other long term (current) drug therapy; Z87.898 Personal history of other specified conditions
CPT/HCPCS: 80053; 80197; 81001; 82044; 82150; 83690; 83735; 84100; 84550; 85025

== ENCOUNTER 2022-03-17 09:27 | Outpatient (CLI) | payer MEDICARE, MEDICAID, SELFPAY ==
[2022-03-17 10:46] LABS: Add Urine Microscopic? NO; Charge for UA Resulting for Rev
[2022-03-17 10:52] LABS: Basophils # 0.1 10^3/uL (0.0-0.1); Basophils % 0.7 %; Eosinophils # 0.2 10^3/uL (0.0-0.8); Eosinophils % 1.9 %; Hematocrit 39.5 % (37.0-47.0); Hemoglobin 12.5 g/dL (11.5-15.3); Lymphocytes # 1.2 10^3/uL (0.8-4.8); Lymphocytes % 15.4 %; Mean Corpuscular HGB Conc 31.6 g/dL (30.0-36.0); Mean Corpuscular Hemoglobin 31.4 pg (28.0-34.0); Mean Corpuscular Volume 99.2 fl (81-99); Mean Platelet Volume 10.8 fL (7.4-10.4); Monocytes # 0.5 10^3/uL (0.2-0.9); Monocytes % 6.6 %; Neutrophils # 6.04 10^3/uL (1.8-7.7); Neutrophils % 75.2 %; Nucleated Red Blood Cells % 0 %; Platelet Count 313 10^3/cmm (130-400); Red Blood Count 3.98 10^6/uL (4.1-5.3); Red Cell Distribution Width 13.8 % (12.1-15.1)
[2022-03-17 10:57] LABS: Bilirubin Urine Neg (Negative); Blood Urine Neg (Negative); Glucose Urine UA Norm (Normal); Ketones Urine Negative (Negative); Leukocyte Esterase Urine Negative (Negative); Nitrate Urine Negative (Negative); Protein Urine Neg (Negative); Urine Appearance Clear (CLEAR); Urine Color Yellow (Yellow); Urobilinogen Urine Norm (Negative); pH Urine 5 (5-7)
[2022-03-17 11:22] LABS: Alanine Aminotransferase 19 U/L (0-33); Albumin Level 4.8 g/dL (3.5-5.2); Alkaline Phosphatase 73 IU/L (35-105); Amylase 64 U/L (28-100); Anion Gap 15.3 (5-19); Aspartate Amino Transferase 22 U/L (0-32); Blood Urea Nitrogen 38 mg/dL (8-23); Calcium 9.5 mg/dL (8.5-10.5); Carbon Dioxide 21 mmol/L (22-29); Chloride 104 mmol/L (98-107); Gamma Glutamyl Transferase 11 U/L (5-36); Globulin 2.7 g/dL (1.3-4.6); Glomerular Filtration Rate 32.9 mL/min (90-130); Glucose 94 mg/dL (65-115); Lipase 9 U/L (13-60); Magnesium 2.1 mg/dL (1.7-2.3); Osmolality Calculated 291 mOsm/kg (285-295); Phosphorus 4.1 mg/dL (2.5-4.5); Potassium 4.3 mmol/L (3.5-5.1); Sodium 136 mmol/L (136-145); Total Bilirubin 0.3 mg/dL (0.15-1.2); Total Protein 7.5 g/dL (6.6-8.7); Uric Acid 5.1 mg/dL (2.4-5.7)
[2022-03-17 11:37] LABS: 25 Hydroxy Vitamin D 43 ng/mL (30-100)
[2022-03-17 12:22] LABS: Creatinine Urine, Random 33 mg/dL (28-217)
[2022-03-17 14:10] LABS: Creatine Phosphokinase 52 U/L (26-192)
== END 2022-03-17 09:28 | disposition home or self-care (01) ==
PROVIDERS: PCP Family Medicine; Visit Provider Specialist
DX: E55.9 Vitamin D deficiency, unspecified (principal); Z79.899 Other long term (current) drug therapy; Z94.0 Kidney transplant status; Z94.83 Pancreas transplant status; N18.30 Chronic kidney disease, stage 3 unspecified; E10.22 Type 1 diabetes mellitus with diabetic chronic kidney disease; D84.9 Immunodeficiency, unspecified
CPT/HCPCS: 80053; 80197; 81003; 82150; 82306; 82550; 82575; 82977; 83690; 83735; 84100; 84550; 85025

== ENCOUNTER 2022-04-29 07:28 | Outpatient (CLI) | payer MEDICARE, MEDICAID, SELFPAY ==
[2022-04-29 08:20] LABS: Basophils # 0.1 10^3/uL (0.0-0.1); Basophils % 1.1 %; Eosinophils # 0.2 10^3/uL (0.0-0.8); Eosinophils % 3.3 %; Hematocrit 35.8 % (37.0-47.0); Hemoglobin 11.8 g/dL (11.5-15.3); Lymphocytes # 1.3 10^3/uL (0.8-4.8); Lymphocytes % 20.5 %; Mean Corpuscular Hemoglobin 31.5 pg (28.0-34.0); Mean Corpuscular Volume 95.5 fl (81-99); Mean Platelet Volume 9.9 fL (7.4-10.4); Monocytes # 0.5 10^3/uL (0.2-0.9); Monocytes % 8.7 %; Neutrophils # 4.05 10^3/uL (1.8-7.7); Neutrophils % 66.2 %; Nucleated Red Blood Cells % 0 %; Platelet Count 294 10^3/cmm (130-400); Red Blood Count 3.75 10^6/uL (4.1-5.3); Red Cell Distribution Width 13.1 % (12.1-15.1); White Blood Count 6.1 10^3/uL (4.0-10.0)
[2022-04-29 08:31] LABS: INR 0.94 (0.8-1.2)
[2022-04-29 08:39] LABS: Bilirubin Urine Neg (Negative); Blood Urine Neg (Negative); Glucose Urine UA Norm (Normal); Ketones Urine Negative (Negative); Leukocyte Esterase Urine Negative (Negative); Nitrate Urine Negative (Negative); Protein Urine Neg (Negative); Specific Gravity, Urine 1.005 (1.005-1.030); Urine Appearance Clear (CLEAR); Urine Color Straw (Yellow); Urobilinogen Urine Norm (Negative); pH Urine 5 (5-7)
[2022-04-29 08:45] LABS: Alanine Aminotransferase 15 U/L (0-33); Albumin Level 4.4 g/dL (3.5-5.2); Alkaline Phosphatase 57 IU/L (35-105); Aspartate Amino Transferase 23 U/L (0-32); Blood Urea Nitrogen 27 mg/dL (8-23); Calcium 9.1 mg/dL (8.5-10.5); Carbon Dioxide 25 mmol/L (22-29); Chloride 100 mmol/L (98-107); Creatine Phosphokinase 51 U/L (26-192); Globulin 2.6 g/dL (1.3-4.6); Glomerular Filtration Rate 45.8 mL/min (90-130); Glucose 100 mg/dL (65-115); Lipase 11 U/L (13-60); Magnesium 2.3 mg/dL (1.7-2.3); Osmolality Calculated 283 mOsm/kg (285-295); Phosphorus 3.5 mg/dL (2.5-4.5); Sodium 134 mmol/L (136-145); Total Bilirubin 0.3 mg/dL (0.15-1.2)
[2022-04-29 08:48] LABS: Estmated Average Glucose 103; Hemoglobin A1C 5.2 % (4.0-6.0)
[2022-04-29 09:45] LABS: 25 Hydroxy Vitamin D > 100 ng/mL (30-100)
== END 2022-04-29 07:29 | disposition home or self-care (01) ==
PROVIDERS: PCP Family Medicine; Visit Provider Specialist
DX: Z94.83 Pancreas transplant status (principal); R73.09 Other abnormal glucose; E55.9 Vitamin D deficiency, unspecified; R80.8 Other proteinuria
CPT/HCPCS: 36415; 80053; 80197; 81001; 82306; 82550; 83036; 83690; 83735; 84100; 84550; 85025; 85610; 87086

== ENCOUNTER 2022-06-03 07:10 | Outpatient (CLI) | payer MEDICARE, MEDICAID, SELFPAY ==
[2022-06-03 07:48] LABS: Basophils # 0.1 10^3/uL (0.0-0.1); Basophils % 0.7 %; Eosinophils # 0.3 10^3/uL (0.0-0.8); Eosinophils % 3.6 %; Hematocrit 36.2 % (37.0-47.0); Hemoglobin 11.7 g/dL (11.5-15.3); Lymphocytes # 1.6 10^3/uL (0.8-4.8); Mean Corpuscular HGB Conc 32.3 g/dL (30.0-36.0); Mean Corpuscular Hemoglobin 31.5 pg (28.0-34.0); Mean Corpuscular Volume 97.6 fl (81-99); Mean Platelet Volume 10.6 fL (7.4-10.4); Monocytes # 0.5 10^3/uL (0.2-0.9); Monocytes % 7.4 %; Neutrophils # 4.65 10^3/uL (1.8-7.7); Neutrophils % 66.2 %; Nucleated Red Blood Cells % 0 %; Platelet Count 300 10^3/cmm (130-400); Red Blood Count 3.71 10^6/uL (4.1-5.3)
[2022-06-03 08:49] LABS: Bilirubin Urine Neg (Negative); Blood Urine Neg (Negative); Glucose Urine UA Norm (Normal); Ketones Urine Negative (Negative); Leukocyte Esterase Urine Negative (Negative); Nitrate Urine Negative (Negative); Protein Urine Neg (Negative); Urine Appearance Clear (CLEAR); Urine Color Straw (Yellow); Urobilinogen Urine Norm (Negative); pH Urine 5 (5-7)
[2022-06-03 08:53] LABS: Alanine Aminotransferase 17 U/L (0-33); Albumin Level 4.2 g/dL (3.5-5.2); Alkaline Phosphatase 63 U/L (35-105); Amylase 62 U/L (28-100); Anion Gap 13.1 (5-19); Aspartate Amino Transferase 23 U/L (0-32); Blood Urea Nitrogen 23 mg/dL (8-23); Calcium 9.3 mg/dL (8.5-10.5); Carbon Dioxide 24 mmol/L (22-29); Chloride 107 mmol/L (98-107); Globulin 3.3 g/dL (1.3-4.6); Glomerular Filtration Rate 50.7 mL/min (90-130); Glucose 89 mg/dL (65-115); Magnesium 1.9 mg/dL (1.7-2.3); Osmolality Calculated 293 mOsm/kg (285-295); Phosphorus 4.2 mg/dL (2.5-4.5); Potassium 4.1 mmol/L (3.5-5.1); Sodium 140 mmol/L (136-145); Total Bilirubin 0.3 mg/dL (0.15-1.2); Total Protein 7.5 g/dL (6.6-8.7); Uric Acid 3.8 mg/dL (2.4-5.7)
[2022-06-03 08:55] LABS: Creatinine Urine, Random 22 mg/dL (28-217); Microalbum Creatinine Ratio Ur 91 mg/dL (0-20); Microalbumin Random Urine 2 ug/dL (0-20)
[2022-06-03 09:07] LABS: RBC Urine 0-4 /hpf (0-2); Squamous Epithelial Cell Urine 0-4 /hpf (0-5); WBC Urine 0-4 /hpf (0-5)
[2022-06-03 09:08] LABS: Add Urine Culture? No
== END 2022-06-03 07:11 | disposition home or self-care (01) ==
LOC: LAB 07:18
PROVIDERS: PCP Family Medicine; Visit Provider Specialist
DX: Z94.0 Kidney transplant status (principal); Z79.899 Other long term (current) drug therapy; D64.9 Anemia, unspecified; E10.22 Type 1 diabetes mellitus with diabetic chronic kidney disease; N18.30 Chronic kidney disease, stage 3 unspecified; R80.8 Other proteinuria; Z94.83 Pancreas transplant status; B18.1 Chronic viral hepatitis B without delta-agent
CPT/HCPCS: 80053; 81001; 82044; 82150; 83735; 84100; 84550; 85025

== ENCOUNTER 2022-10-17 08:23 | Outpatient (CLI) | payer MEDICARE, MEDICAID, SELFPAY ==
[2022-10-17 09:39] LABS: Basophils # 0.1 10^3/uL (0.0-0.1); Basophils % 0.6 %; Eosinophils # 0.2 10^3/uL (0.0-0.8); Eosinophils % 2.1 %; Hematocrit 37.9 % (37.0-47.0); Hemoglobin 11.8 g/dL (11.5-15.3); Lymphocytes # 1.2 10^3/uL (0.8-4.8); Lymphocytes % 12.6 %; Mean Corpuscular HGB Conc 31.1 g/dL (30.0-36.0); Mean Corpuscular Hemoglobin 30.8 pg (28.0-34.0); Mean Platelet Volume 10.9 fL (7.4-10.4); Monocytes # 0.7 10^3/uL (0.2-0.9); Neutrophils # 7.48 10^3/uL (1.8-7.7); Neutrophils % 77.3 %; Nucleated Red Blood Cells % 0 %; Platelet Count 395 10^3/cmm (130-400); Red Blood Count 3.83 10^6/uL (4.1-5.3); White Blood Count 9.7 10^3/uL (4.0-10.0)
[2022-10-17 09:43] LABS: Add Urine Culture? Yes; Bacteria Urine 2+ /hpf; Bilirubin Urine Neg (Negative); Blood Urine Neg (Negative); Glucose Urine UA Norm (Normal); Ketones Urine Negative (Negative); Leukocyte Esterase Urine 1+ (Negative); Nitrate Urine Negative (Negative); Protein Urine 1+ (Negative); Specific Gravity, Urine 1.005 (1.005-1.030); Urine Appearance Clear (CLEAR); Urine Color Straw (Yellow); Urobilinogen Urine Norm (Negative); WBC Urine 40-55 /hpf (0-5); pH Urine 7 (5-7)
[2022-10-17 09:57] LABS: Alanine Aminotransferase 20 U/L (0-33); Albumin Level 4.3 g/dL (3.5-5.2); Alkaline Phosphatase 77 U/L (35-105); Amylase 68 U/L (28-100); Aspartate Amino Transferase 29 U/L (0-32); Blood Urea Nitrogen 37 mg/dL (8-23); Calcium 9.1 mg/dL (8.5-10.5); Carbon Dioxide 26 mmol/L (22-29); Chloride 102 mmol/L (98-107); Globulin 3.8 g/dL (1.3-4.6); Glomerular Filtration Rate 41.6 mL/min (90-130); Glucose 102 mg/dL (65-115); Osmolality Calculated 297 mOsm/kg (285-295); Phosphorus 2.4 mg/dL (2.5-4.5); Sodium 139 mmol/L (136-145); Total Bilirubin 0.2 mg/dL (0.15-1.2); Total Protein 8.1 g/dL (6.6-8.7); Uric Acid 3.5 mg/dL (2.4-5.7)
[2022-10-17 09:58] LABS: Urine Creatinine 48 mg/dL (28-217)
[2022-10-17 10:01] LABS: Anion Gap 15.4 (5-19); Potassium 4.4 mmol/L (3.5-5.1)
[2022-10-17 10:03] LABS: Total Protein, Random Urine 40.6 mg/dL (0.0-20.0)
[2022-10-17 10:04] LABS: Estmated Average Glucose 123; Hemoglobin A1C 5.9 % (4.0-6.0)
[2022-10-17 19:05] LABS: 25 Hydroxy Vitamin D 43 ng/mL (30-100)
== END 2022-10-17 08:24 | disposition home or self-care (01) ==
PROVIDERS: PCP Family Medicine; Visit Provider Specialist
DX: E55.9 Vitamin D deficiency, unspecified (principal); Z79.899 Other long term (current) drug therapy
CPT/HCPCS: 36415; 80053; 80197; 81001; 82150; 82306; 82570; 83036; 83735; 84100; 84156; 84550; 85025; 87077; 87086; 87186

== ENCOUNTER 2022-11-22 08:13 | Outpatient (CLI) | payer MEDICARE, MEDICAID, SELFPAY ==
[2022-11-22 09:21] LABS: Add Urine Microscopic? NO
[2022-11-22 09:33] LABS: Basophils # 0.1 10^3/uL (0.0-0.1); Eosinophils # 0.1 10^3/uL (0.0-0.8); Eosinophils % 2.1 %; Hematocrit 38.3 % (37.0-47.0); Hemoglobin 12.3 g/dL (11.5-15.3); Lymphocytes # 1.1 10^3/uL (0.8-4.8); Lymphocytes % 18.5 %; Mean Corpuscular HGB Conc 32.1 g/dL (30.0-36.0); Mean Corpuscular Hemoglobin 30.8 pg (28.0-34.0); Mean Platelet Volume 10.2 fL (7.4-10.4); Monocytes # 0.5 10^3/uL (0.2-0.9); Monocytes % 7.3 %; Neutrophils # 4.38 10^3/uL (1.8-7.7); Neutrophils % 70.9 %; Nucleated Red Blood Cells % 0 %; Platelet Count 360 10^3/cmm (130-400); Red Blood Count 3.99 10^6/uL (4.1-5.3); Red Cell Distribution Width 14.6 % (12.1-15.1); White Blood Count 6.2 10^3/uL (4.0-10.0)
[2022-11-22 09:53] LABS: Alanine Aminotransferase 16 U/L (0-33); Albumin Level 4.2 g/dL (3.5-5.2); Alkaline Phosphatase 71 U/L (35-105); Amylase 51 U/L (28-100); Anion Gap 15.1 (5-19); Aspartate Amino Transferase 22 U/L (0-32); Blood Urea Nitrogen 38 mg/dL (8-23); Calcium 9.3 mg/dL (8.5-10.5); Carbon Dioxide 25 mmol/L (22-29); Chloride 102 mmol/L (98-107); Globulin 3.3 g/dL (1.3-4.6); Glomerular Filtration Rate 32.8 mL/min (90-130); Glucose 92 mg/dL (65-115); Magnesium 1.9 mg/dL (1.7-2.3); Osmolality Calculated 295 mOsm/kg (285-295); Phosphorus 3.3 mg/dL (2.5-4.5); Potassium 4.1 mmol/L (3.5-5.1); Sodium 138 mmol/L (136-145); Total Bilirubin 0.2 mg/dL (0.15-1.2); Total Protein 7.5 g/dL (6.6-8.7); Uric Acid 4.3 mg/dL (2.4-5.7)
[2022-11-22 10:01] LABS: Bilirubin Urine Neg (Negative); Blood Urine Neg (Negative); Glucose Urine UA Norm (Normal); Ketones Urine Negative (Negative); Leukocyte Esterase Urine Negative (Negative); Nitrate Urine Negative (Negative); Protein Urine Neg (Negative); Squamous Epithelial Cell Urine 0-4 /hpf (0-5); Urine Appearance Clear (CLEAR); Urine Color Light yellow (Yellow); Urobilinogen Urine Norm (Negative); WBC Urine 0-4 /hpf (0-5); pH Urine 5 (5-7)
[2022-11-22 10:02] LABS: Add Urine Culture? No
[2022-11-22 10:12] LABS: Urine Creatinine 36 mg/dL (28-217); Urine Protein Random 18 mg/dL
[2022-11-22 11:24] LABS: Estmated Average Glucose 105; Hemoglobin A1C 5.3 % (4.0-6.0)
[2022-11-22 12:20] LABS: 25 Hydroxy Vitamin D 43 ng/mL (30-100)
== END 2022-11-22 08:14 | disposition home or self-care (01) ==
LOC: LAB 08:23
PROVIDERS: PCP Family Medicine; Visit Provider Specialist
DX: Z94.0 Kidney transplant status (principal); Z79.899 Other long term (current) drug therapy; D84.9 Immunodeficiency, unspecified; E10.22 Type 1 diabetes mellitus with diabetic chronic kidney disease; N18.30 Chronic kidney disease, stage 3 unspecified; R80.8 Other proteinuria; Z87.898 Personal history of other specified conditions; Z94.83 Pancreas transplant status; B18.1 Chronic viral hepatitis B without delta-agent
CPT/HCPCS: 36415; 80053; 80197; 81001; 82150; 82306; 82570; 83036; 83735; 84100; 84156; 84550; 85025

== ENCOUNTER 2023-01-09 08:19 | Outpatient (CLI) | payer MEDICARE, MEDICAID, SELFPAY ==
[2023-01-09 09:19] LABS: Basophils # 0.1 10^3/uL (0.0-0.1); Basophils % 0.9 %; Eosinophils # 0.2 10^3/uL (0.0-0.8); Eosinophils % 2.8 %; Hematocrit 37.1 % (37.0-47.0); Hemoglobin 11.9 g/dL (11.5-15.3); Lymphocytes # 1.1 10^3/uL (0.8-4.8); Lymphocytes % 17.3 %; Mean Corpuscular HGB Conc 32.1 g/dL (30.0-36.0); Mean Corpuscular Hemoglobin 31.6 pg (28.0-34.0); Mean Corpuscular Volume 98.4 fl (81-99); Monocytes # 0.6 10^3/uL (0.2-0.9); Monocytes % 9.6 %; Neutrophils # 4.49 10^3/uL (1.8-7.7); Neutrophils % 69.1 %; Nucleated Red Blood Cells % 0 %; Platelet Count 260 10^3/cmm (130-400); Red Blood Count 3.77 10^6/uL (4.1-5.3); Red Cell Distribution Width 14.5 % (12.1-15.1); White Blood Count 6.5 10^3/uL (4.0-10.0)
[2023-01-09 09:35] LABS: Alanine Aminotransferase 18 U/L (0-33); Alkaline Phosphatase 70 U/L (35-105); Amylase 56 U/L (28-100); Anion Gap 10.4 (5-19); Aspartate Amino Transferase 32 U/L (0-32); Blood Urea Nitrogen 31 mg/dL (8-23); Calcium 8.9 mg/dL (8.5-10.5); Carbon Dioxide 26 mmol/L (22-29); Chloride 104 mmol/L (98-107); Globulin 3.1 g/dL (1.3-4.6); Glomerular Filtration Rate 38.2 mL/min (90-130); Glucose 103 mg/dL (65-115); Lipase 12 U/L (13-60); Magnesium 1.7 mg/dL (1.7-2.3); Osmolality Calculated 289 mOsm/kg (285-295); Phosphorus 3.6 mg/dL (2.5-4.5); Potassium 4.4 mmol/L (3.5-5.1); Sodium 136 mmol/L (136-145); Total Bilirubin 0.2 mg/dL (0.15-1.2); Total Protein 7.1 g/dL (6.6-8.7); Uric Acid 3.8 mg/dL (2.4-5.7)
[2023-01-09 09:52] LABS: Urine Creatinine 83 mg/dL (28-217)
[2023-01-09 09:54] LABS: UPRO/UCREAT Ratio 0.47 mg/mg CR; Urine Protein Random 39 mg/dL
[2023-01-09 10:17] LABS: Glucose Urine UA Norm (Normal); Protein Urine Trace (Negative); Specific Gravity, Urine 1.015 (1.005-1.030); Urine Appearance Clear (CLEAR); Urine Color Yellow (Yellow); pH Urine 5 (5-7)
[2023-01-09 10:18] LABS: Add Urine Culture? No; Add Urine Microscopic? YES; Bilirubin Urine Neg (Negative); Blood Urine Neg (Negative); Ketones Urine Negative (Negative); Leukocyte Esterase Urine Negative (Negative); Nitrate Urine Negative (Negative); RBC Urine 0-4 /hpf (0-2); Squamous Epithelial Cell Urine 0-4 /hpf (0-5); Urobilinogen Urine Neg (Negative); WBC Urine 0-4 /hpf (0-5)
== END 2023-01-09 08:20 | disposition home or self-care (01) ==
LOC: LAB 08:33
PROVIDERS: PCP Family Medicine; Visit Provider Specialist
DX: D84.9 Immunodeficiency, unspecified (principal); Z94.83 Pancreas transplant status; Z94.0 Kidney transplant status
CPT/HCPCS: 36415; 80053; 80197; 81001; 82150; 82570; 83690; 83735; 84100; 84156; 84550; 85025

== ENCOUNTER 2023-01-14 14:16 | Emergency (ER) | payer MEDICARE, MEDICAID, SELFPAY ==
[2023-01-14 14:23] VITALS: BP 212/108; PULSE 79; RESP 16; TEMP 37.2; O2SAT 98
[2023-01-14] MEDS: fluorescein 1 mg Strip EYE-LEFT (14:34)
[2023-01-14] MEDS: tetracaine 0.5% Op Soln 4 mL Btl 1 DROP EYE-LEFT (14:34)
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
[2023-01-14 14:47] VITALS: BP 192/115; PULSE 78; RESP 16; O2SAT 98
== END 2023-01-14 15:10 | disposition home or self-care (01) ==
PROVIDERS: Emergency Provider Emergency Medicine; PCP Family Medicine
DX: S05.02XA Injury of conjunctiva and corneal abrasion without foreign body, left eye, initial encounter (principal); Z79.82 Long term (current) use of aspirin; Z86.19 Personal history of other infectious and parasitic diseases; Z94.0 Kidney transplant status; W22.8XXA Striking against or struck by other objects, initial encounter
CPT/HCPCS: 99283

== ENCOUNTER 2023-03-06 07:55 | Outpatient (CLI) | payer MEDICARE, MEDICAID, SELFPAY ==
[2023-03-06 08:59] LABS: Basophils # 0.1 10^3/uL (0.0-0.1); Basophils % 0.8 %; Eosinophils # 0.2 10^3/uL (0.0-0.8); Eosinophils % 2.8 %; Hematocrit 38.2 % (37.0-47.0); Hemoglobin 12.1 g/dL (11.5-15.3); Lymphocytes # 1.4 10^3/uL (0.8-4.8); Lymphocytes % 18.9 %; Mean Corpuscular HGB Conc 31.7 g/dL (30.0-36.0); Mean Corpuscular Volume 97.9 fl (81-99); Mean Platelet Volume 10.1 fL (7.4-10.4); Monocytes # 0.6 10^3/uL (0.2-0.9); Monocytes % 7.8 %; Neutrophils # 5.25 10^3/uL (1.8-7.7); Neutrophils % 69.3 %; Nucleated Red Blood Cells % 0 %; Platelet Count 341 10^3/cmm (130-400); Red Cell Distribution Width 14.3 % (12.1-15.1); White Blood Count 7.6 10^3/uL (4.0-10.0)
[2023-03-06 09:14] LABS: Alanine Aminotransferase 21 U/L (0-33); Albumin Level 4.3 g/dL (3.5-5.2); Alkaline Phosphatase 81 U/L (35-105); Amylase 94 U/L (28-100); Aspartate Amino Transferase 28 U/L (0-32); Blood Urea Nitrogen 39 mg/dL (8-23); Calcium 9.1 mg/dL (8.5-10.5); Carbon Dioxide 24 mmol/L (22-29); Chloride 108 mmol/L (98-107); Globulin 3.4 g/dL (1.3-4.6); Glomerular Filtration Rate 45.7 mL/min (90-130); Glucose 83 mg/dL (65-115); Lipase 31 U/L (13-60); Magnesium 2.1 mg/dL (1.7-2.3); Osmolality Calculated 299 mOsm/kg (285-295); Phosphorus 3.3 mg/dL (2.5-4.5); Sodium 140 mmol/L (136-145); Total Bilirubin 0.2 mg/dL (0.15-1.2); Total Protein 7.7 g/dL (6.6-8.7); Uric Acid 3.7 mg/dL (2.4-5.7)
[2023-03-06 09:28] LABS: Bilirubin Urine Neg (Negative); Blood Urine Neg (Negative); Glucose Urine UA Norm (Normal); Ketones Urine Negative (Negative); Nitrate Urine Negative (Negative); Protein Urine 1+ (Negative); Specific Gravity, Urine 1.005 (1.005-1.030); Urine Appearance Clear (CLEAR); Urine Color Straw (Yellow); pH Urine 6.5 (5-7)
[2023-03-06 09:29] LABS: Bacteria Urine TRACE /hpf; Leukocyte Esterase Urine Negative (Negative); RBC Urine RARE /hpf (0-2); Squamous Epithelial Cell Urine 0-4 /hpf (0-5); Urobilinogen Urine Norm (Negative); WBC Urine 0-4 /hpf (0-5)
[2023-03-06 09:30] LABS: Add Urine Culture? No; Mucus Urine TRACE /hpf
[2023-03-06 09:33] LABS: Urine Creatinine 41 mg/dL (28-217)
[2023-03-06 09:34] LABS: UPRO/UCREAT Ratio 0.78 mg/mg CR; Urine Protein Random 32 mg/dL
== END 2023-03-06 07:56 | disposition home or self-care (01) ==
LOC: LAB 07:58
PROVIDERS: PCP Family Medicine; Visit Provider Specialist
DX: E08.21 Diabetes mellitus due to underlying condition with diabetic nephropathy (principal); D84.821 Immunodeficiency due to drugs; Z79.899 Other long term (current) drug therapy; Z79.83 Long term (current) use of bisphosphonates; Z94.0 Kidney transplant status
CPT/HCPCS: 36415; 80053; 80197; 81001; 82150; 82570; 83690; 83735; 84100; 84156; 84550; 85025

== ENCOUNTER 2023-05-19 07:57 | Outpatient (CLI) | payer MEDICARE, MEDICAID, SELFPAY ==
[2023-05-19 08:37] LABS: Basophils # 0.1 10^3/uL (0.0-0.1); Basophils % 0.6 %; Eosinophils # 0.3 10^3/uL (0.0-0.8); Eosinophils % 3.1 %; Hematocrit 36.6 % (37.0-47.0); Hemoglobin 11.8 g/dL (11.5-15.3); Lymphocytes # 1.5 10^3/uL (0.8-4.8); Lymphocytes % 18.4 %; Mean Corpuscular HGB Conc 32.2 g/dL (30.0-36.0); Mean Corpuscular Hemoglobin 31.4 pg (28.0-34.0); Mean Corpuscular Volume 97.3 fl (81-99); Mean Platelet Volume 9.9 fL (7.4-10.4); Monocytes # 0.6 10^3/uL (0.2-0.9); Monocytes % 7.1 %; Neutrophils # 5.71 10^3/uL (1.8-7.7); Neutrophils % 70.7 %; Nucleated Red Blood Cells % 0 %; Platelet Count 391 10^3/cmm (130-400); Red Blood Count 3.76 10^6/uL (4.1-5.3); Red Cell Distribution Width 13.5 % (12.1-15.1); White Blood Count 8.1 10^3/uL (4.0-10.0)
[2023-05-19 08:57] LABS: Alanine Aminotransferase 14 U/L (0-33); Albumin Level 3.7 g/dL (3.5-5.2); Alkaline Phosphatase 75 U/L (35-105); Aspartate Amino Transferase 23 U/L (0-32); Blood Urea Nitrogen 29 mg/dL (8-23); Calcium 8.7 mg/dL (8.5-10.5); Carbon Dioxide 24 mmol/L (22-29); Chloride 106 mmol/L (98-107); Globulin 3.6 g/dL (1.3-4.6); Glomerular Filtration Rate 41.6 mL/min (90-130); Glucose 89 mg/dL (65-115); Lipase 10 U/L (13-60); Osmolality Calculated 293 mOsm/kg (285-295); Phosphorus 3.1 mg/dL (2.5-4.5); Sodium 139 mmol/L (136-145); Total Bilirubin 0.2 mg/dL (0.15-1.2); Total Protein 7.3 g/dL (6.6-8.7); Uric Acid 3.8 mg/dL (2.4-5.7)
[2023-05-19 08:59] LABS: Add Urine Culture? Yes; Bacteria Urine 3+ /hpf; Bilirubin Urine Neg (Negative); Blood Urine Trace (Negative); Glucose Urine UA Norm (Normal); Ketones Urine Negative (Negative); Leukocyte Esterase Urine 2+ (Negative); Nitrate Urine Positive (Negative); Protein Urine Neg (Negative); RBC Urine 0-4 /hpf (0-2); Squamous Epithelial Cell Urine 0-4 /hpf (0-5); Urine Appearance Hazy (CLEAR); Urine Color Light yellow (Yellow); Urobilinogen Urine Norm (Negative); WBC Urine 55-80 /hpf (0-5); pH Urine 6 (5-7)
[2023-05-19 09:00] LABS: Anion Gap 12.9 (5-19); Potassium 3.9 mmol/L (3.5-5.1)
[2023-05-19 09:19] LABS: Urine Creatinine 30 mg/dL (28-217)
[2023-05-19 09:32] LABS: Urine Protein Random 27 mg/dL
== END 2023-05-19 07:58 | disposition home or self-care (01) ==
PROVIDERS: PCP Family Medicine; Visit Provider Specialist
DX: D84.9 Immunodeficiency, unspecified (principal); Z94.83 Pancreas transplant status; Z94.0 Kidney transplant status; E08.21 Diabetes mellitus due to underlying condition with diabetic nephropathy
CPT/HCPCS: 36415; 80053; 80197; 81001; 82570; 83690; 83735; 84100; 84156; 84550; 85025; 87077; 87086; 87186

== ENCOUNTER 2023-06-26 15:04 | Outpatient (CLI) | payer MEDICARE, MEDICAID, SELFPAY ==
--- NOTE | 2023-06-26 15:08 | MR_ITS ---
WS: [id number] MRI BRAIN WITH HIGH-RESOLUTION IMAGING THROUGH THE INTERNAL AUDITORY CANALS WITHOUT CONTRAST HISTORY: SENSORINEURAL HEARING LOSS,BILATERAL COMPARISON: None available. TECHNIQUE: Multiplanar, multisequence imaging is performed through the brain. Additional 3 mm imaging performed in multiple planes through the internal auditory canal. No post contrast imaging performed. Unable to achieve IV access. No acute intracranial hemorrhage, midline shift, edema or mass effect. Normal diffusion imaging. There is severe, confluent and additional focal areas of abnormal signal th roughout the white matter. Confluent periventricular increased T2 and FLAIR signal. There are additio nal subcortical patchy areas of increased signal seen on the FLAIR and T2 sequences. Increased signal bilaterally in the mary and the cerebellum. These findings of white matter disease are much more adv anced than typically noted for the aging process. There is mild bilateral symmetric atrophy. The ventricles and extra-axial spaces are very mildly prominent on the basis of the atrophy. No inferior displacement of cerebellar tonsils. Clivus and pituitary gland are normal. Internal and external auditory canals: Unremarkable. Cranial nerves VII and VIII complexes: On this unenhanced exam no abnormality. No deviation or signal changes. Cerebellopontine angles: Normal. Paranasal sinuses: Normal. Mastoid air cells: Severe RIGHT mastoid air cell effusion. No central abnormality. Calvarium and scalp: Normal. No abnormality noted in the [place] of [place] on this unenhanced exam. IMPRESSION: 1. No mass or mass effect at the cerebellopontine angles or along the internal auditory canals. Unabl e to achieve IV access for contrast enhanced exam. 2. Severe confluent periventricular white matter disease with additional focal areas of increased sig nal in the mary and cerebellum and subcortical white matter. White matter disease is much more advanc ed than expected for a patient of this age. Consider evaluation by neurology. 3. Mild atrophy. 4. Severe RIGHT mastoid air cell effusion.
== END 2023-06-26 15:05 | disposition home or self-care (01) ==
PROVIDERS: PCP Family Medicine; Visit Provider Specialist
DX: H90.3 Sensorineural hearing loss, bilateral (principal); R90.82 White matter disease, unspecified
CPT/HCPCS: 70551

== ENCOUNTER 2023-07-03 13:40 | Outpatient (CLI) | payer MEDICARE, MEDICAID, SELFPAY ==
[2023-07-03 14:28] LABS: Bilirubin Urine Neg (Negative); Blood Urine Neg (Negative); Glucose Urine UA Norm (Normal); Ketones Urine Negative (Negative); Nitrate Urine Negative (Negative); Protein Urine Neg (Negative); Urine Appearance SL Hazy (CLEAR); Urine Color Yellow (Yellow); Urobilinogen Urine Norm (Negative); pH Urine 7 (5-7)
[2023-07-03 14:29] LABS: Add Urine Culture? No; Bacteria Urine TRACE /hpf; Leukocyte Esterase Urine Trace (Negative); Squamous Epithelial Cell Urine 0-4 /hpf (0-5); WBC Urine 0-4 /hpf (0-5)
[2023-07-03 14:41] LABS: Urine Creatinine 28 mg/dL (28-217); Urine Protein Random 12 mg/dL
[2023-07-03 14:43] LABS: UPRO/UCREAT Ratio 0.43 mg/mg CR
== END 2023-07-03 13:41 | disposition home or self-care (01) ==
LOC: LAB 13:45
PROVIDERS: PCP Family Medicine; Visit Provider Specialist
DX: Z94.0 Kidney transplant status (principal); D84.9 Immunodeficiency, unspecified
CPT/HCPCS: 81001; 82570; 84156

== ENCOUNTER 2023-07-18 08:15 | Outpatient (CLI) | payer MEDICARE, MEDICAID, SELFPAY ==
[2023-07-18 09:10] LABS: Basophils # 0.1 10^3/uL (0.0-0.1); Basophils % 0.9 %; Eosinophils # 0.3 10^3/uL (0.0-0.8); Hematocrit 38.1 % (36-47); Lymphocytes # 1.3 10^3/uL (0.8-4.8); Lymphocytes % 24.2 %; Mean Corpuscular HGB Conc 32.3 g/dL (30-55); Mean Corpuscular Hemoglobin 31.4 pg (27-33); Mean Corpuscular Volume 97.2 fl (85-98); Mean Platelet Volume 10.8 fL (7.4-10.4); Monocytes # 0.5 10^3/uL (0.2-0.9); Monocytes % 9.5 %; Neutrophils # 3.25 10^3/uL (1.8-7.7); Neutrophils % 60.4 %; Nucleated Red Blood Cells % 0 %; Platelet Count 302 10^3/cmm (157-399); Red Blood Count 3.92 10^6/uL (3.85-5.65); Red Cell Distribution Width 14.5 % (12.1-15.1); White Blood Count 5.38 10^3/uL (3.29-11.43)
[2023-07-18 09:40] LABS: Alanine Aminotransferase 18 U/L (0-33); Albumin Level 4.3 g/dL (3.5-5.2); Alkaline Phosphatase 76 U/L (35-105); Amylase 81 U/L (28-100); Aspartate Amino Transferase 28 U/L (0-32); Blood Urea Nitrogen 36 mg/dL (8-23); Calcium 8.9 mg/dL (8.5-10.5); Carbon Dioxide 26 mmol/L (22-29); Chloride 103 mmol/L (98-107); Globulin 3.4 g/dL (1.3-4.6); Glomerular Filtration Rate 35.3 mL/min (90-130); Glucose 97 mg/dL (65-115); Lipase 17 U/L (13-60); Osmolality Calculated 296 mOsm/kg (285-295); Phosphorus 2.9 mg/dL (2.5-4.5); Sodium 139 mmol/L (136-145); Total Bilirubin 0.5 mg/dL (0.15-1.2); Total Protein 7.7 g/dL (6.6-8.7); Uric Acid 4.1 mg/dL (2.4-5.7)
[2023-07-24 00:54] LABS: BK VIRUS DNA, QN PCR NOT DETECTED copies/mL; BK VIRUS DNA, QN RT PCR NOT DETECTED Log cps/mL; SOURCE WHOLE BLOOD
== END 2023-07-18 08:16 | disposition home or self-care (01) ==
PROVIDERS: PCP Family Medicine; Visit Provider Specialist
DX: Z94.0 Kidney transplant status (principal); D84.9 Immunodeficiency, unspecified
CPT/HCPCS: 36415; 80053; 80197; 82150; 83690; 83735; 84100; 84550; 85025; 87798

== ENCOUNTER 2023-12-18 07:24 | Outpatient (CLI) | payer MEDICARE, MEDICAID, SELFPAY ==
[2023-12-18 07:59] LABS: Basophils # 0.1 10^3/uL (0.0-0.1); Basophils % 0.6 %; Eosinophils # 0.2 10^3/uL (0.0-0.8); Eosinophils % 2.3 %; Hematocrit 38.2 % (36-47); Lymphocytes # 1.2 10^3/uL (0.8-4.8); Lymphocytes % 12.6 %; Mean Corpuscular HGB Conc 32.5 g/dL (30-55); Mean Corpuscular Hemoglobin 31.8 pg (27-33); Mean Corpuscular Volume 97.9 fl (85-98); Mean Platelet Volume 9.9 fL (7.4-10.4); Monocytes # 0.7 10^3/uL (0.2-0.9); Monocytes % 7.4 %; Neutrophils # 7.57 10^3/uL (1.8-7.7); Neutrophils % 76.7 %; Nucleated Red Blood Cells % 0 %; Platelet Count 353 10^3/cmm (157-399); Red Cell Distribution Width 13.6 % (12.1-15.1); White Blood Count 9.87 10^3/uL (3.29-11.43)
[2023-12-18 08:26] LABS: Estmated Average Glucose 103; Hemoglobin A1C 5.2 % (4.0-6.0)
[2023-12-18 08:36] LABS: Alanine Aminotransferase 16 U/L (0-33); Albumin Level 3.7 g/dL (3.5-5.2); Alkaline Phosphatase 77 U/L (35-105); Amylase 67 U/L (28-100); Anion Gap 15.7 (5-19); Aspartate Amino Transferase 22 U/L (0-32); Blood Urea Nitrogen 35 mg/dL (8-23); Calcium 9.1 mg/dL (8.5-10.5); Carbon Dioxide 25 mmol/L (22-29); Chloride 101 mmol/L (98-107); Globulin 3.8 g/dL (1.3-4.6); Glomerular Filtration Rate 32.7 mL/min (90-130); Glucose 107 mg/dL (65-115); Lipase 14 U/L (13-60); Magnesium 1.9 mg/dL (1.7-2.3); Osmolality Calculated 294 mOsm/kg (285-295); Phosphorus 3.1 mg/dL (2.5-4.5); Potassium 3.7 mmol/L (3.5-5.1); Sodium 138 mmol/L (136-145); Total Bilirubin 0.2 mg/dL (0.15-1.2); Total Protein 7.5 g/dL (6.6-8.7)
[2023-12-18 08:43] LABS: Creatinine Urine, Random 84 mg/dL (28-217)
[2023-12-18 08:51] LABS: Add Urine Microscopic? YES; Bacteria Urine 2+ /hpf; Bilirubin Urine Neg (Negative); Blood Urine 3+ (Negative); Glucose Urine UA Norm (Normal); Ketones Urine Negative (Negative); Leukocyte Esterase Urine 2+ (Negative); Nitrate Urine Negative (Negative); Protein Urine 3+ (Negative); Specific Gravity, Urine 1.015 (1.005-1.030); Squamous Epithelial Cell Urine 0-4 /hpf (0-5); Urine Appearance Cloudy (CLEAR); Urine Color Yellow (Yellow); Urobilinogen Urine Norm (Negative); WBC Urine 80-100 /hpf (0-5); pH Urine 5 (5-7)
[2023-12-18 08:52] LABS: Add Urine Culture? Yes
[2023-12-18 08:57] LABS: Microalbum Creatinine Ratio Ur 1738 mg/dL (0-20); Microalbumin Random Urine 146 ug/dL (0-20)
[2023-12-22 17:14] LABS: BK VIRUS DNA, QN PCR NOT DETECTED copies/mL; BK VIRUS DNA, QN RT PCR NOT DETECTED Log cps/mL; SOURCE PLASMA
== END 2023-12-18 07:25 | disposition home or self-care (01) ==
LOC: LAB 07:32
PROVIDERS: PCP Family Medicine; Visit Provider Specialist
DX: D84.9 Immunodeficiency, unspecified (principal); Z94.0 Kidney transplant status
CPT/HCPCS: 36415; 80053; 80197; 81001; 82044; 82150; 83036; 83690; 83735; 84100; 84550; 85025; 87077; 87086; 87186; 87798

== ENCOUNTER 2024-02-05 08:38 | Outpatient (CLI) | payer MEDICARE, MEDICAID, SELFPAY ==
[2024-02-05 10:00] LABS: Add Urine Microscopic? NO
[2024-02-05 10:08] LABS: Basophils # 0.1 10^3/uL (0.0-0.1); Basophils % 0.8 %; Eosinophils # 0.2 10^3/uL (0.0-0.8); Eosinophils % 2.7 %; Hematocrit 35.8 % (36-47); Lymphocytes % 13.7 %; Mean Corpuscular HGB Conc 32.7 g/dL (30-55); Mean Corpuscular Hemoglobin 31.6 pg (27-33); Mean Corpuscular Volume 96.8 fl (85-98); Mean Platelet Volume 10.2 fL (7.4-10.4); Monocytes # 0.6 10^3/uL (0.2-0.9); Monocytes % 8.3 %; Neutrophils # 5.44 10^3/uL (1.8-7.7); Neutrophils % 74.1 %; Nucleated Red Blood Cells % 0 %; Platelet Count 443 10^3/cmm (157-399); Red Cell Distribution Width 14.6 % (12.1-15.1); White Blood Count 7.35 10^3/uL (3.29-11.43)
[2024-02-05 10:21] LABS: Estmated Average Glucose 100; Hemoglobin A1C 5.1 % (4.0-6.0)
[2024-02-05 10:40] LABS: Calcium 8.6 mg/dL (8.5-10.5)
[2024-02-05 10:47] LABS: Parathyroid Hormone 91.7 pg/mL (15-65)
[2024-02-05 10:50] LABS: 25 Hydroxy Vitamin D 37 ng/mL (30-100); Alanine Aminotransferase 17 U/L (0-33); Alkaline Phosphatase 91 U/L (35-105); Anion Gap 15.8 (5-19); Aspartate Amino Transferase 23 U/L (0-32); Blood Urea Nitrogen 44 mg/dL (8-23); Calcium 8.8 mg/dL (8.5-10.5); Carbon Dioxide 23 mmol/L (22-29); Chloride 105 mmol/L (98-107); Chol HDL Ratio 3.15 mg/dL (0.0-4.40); Cholesterol 195 mg/dL (0-200); Globulin 3.4 g/dL (1.3-4.6); Glomerular Filtration Rate 25.2 mL/min (90-130); Glucose 102 mg/dL (65-115); HDL Cholesterol 62 mg/dL (60-100); LDL Cholesterol Calculated 114 mg/dL (50-129); LDL HDL Ratio 1.84 RATIO (0.00-3.22); Lipase 18 U/L (13-60); Magnesium 1.8 mg/dL (1.7-2.3); Osmolality Calculated 301 mOsm/kg (285-295); Phosphorus 3.2 mg/dL (2.5-4.5); Potassium 3.8 mmol/L (3.5-5.1); Sodium 140 mmol/L (136-145); Total Bilirubin 0.2 mg/dL (0.15-1.2); Total Protein 7.4 g/dL (6.6-8.7); Triglycerides 96 mg/dL (0-150); Uric Acid 4.4 mg/dL (2.4-5.7)
[2024-02-05 11:25] LABS: Bilirubin Urine Neg (Negative); Blood Urine Trace (Negative); Glucose Urine UA Norm (Normal); Ketones Urine Negative (Negative); Leukocyte Esterase Urine 2+ (Negative); Nitrate Urine Negative (Negative); Protein Urine 1+ (Negative); Specific Gravity, Urine 1.005 (1.005-1.030); Urine Appearance Hazy (CLEAR); Urine Color Light yellow (Yellow); Urine Creatinine 21 mg/dL (28-217); Urobilinogen Urine Norm (Negative); pH Urine 7 (5-7)
[2024-02-05 11:26] LABS: Transitional Epi Cells Urine RARE /hpf; WBC Urine TOO NUMEROUS TO CNT /hpf (0-5)
[2024-02-05 11:27] LABS: Add Urine Culture? Yes; Bacteria Urine 4+ /hpf; UPRO/UCREAT Ratio 3.95 mg/mg CR; Urine Protein Random 83 mg/dL
[2024-02-06 07:10] LABS: Amylase 54 U/L (21-101)
== END 2024-02-05 08:39 | disposition home or self-care (01) ==
PROVIDERS: PCP Family Medicine; Visit Provider Specialist
DX: D84.9 Immunodeficiency, unspecified (principal); Z79.899 Other long term (current) drug therapy; Z94.0 Kidney transplant status; R80.8 Other proteinuria; E10.22 Type 1 diabetes mellitus with diabetic chronic kidney disease; N18.30 Chronic kidney disease, stage 3 unspecified; Z94.83 Pancreas transplant status
CPT/HCPCS: 36415; 80053; 80061; 80197; 81001; 82150; 82306; 82310; 82570; 83036; 83690; 83735; 83970; 84100; 84156; 84550; 85025; 87077; 87086; 87186

== ENCOUNTER 2024-07-01 08:10 | Outpatient (CLI) | payer MEDICARE, MEDICAID, SELFPAY ==
[2024-07-01 09:09] LABS: Basophils % 0.5 %; Eosinophils # 0.3 10^3/uL (0.0-0.8); Eosinophils % 3.3 %; Hematocrit 33.5 % (36-47); Lymphocytes # 1.2 10^3/uL (0.8-4.8); Lymphocytes % 14.4 %; Mean Corpuscular HGB Conc 32.2 g/dL (30-55); Mean Corpuscular Hemoglobin 31.1 pg (27-33); Mean Corpuscular Volume 96.5 fl (85-98); Mean Platelet Volume 10.7 fL (7.4-10.4); Monocytes # 0.7 10^3/uL (0.2-0.9); Monocytes % 7.9 %; Neutrophils # 6.09 10^3/uL (1.8-7.7); Neutrophils % 73.7 %; Nucleated Red Blood Cells % 0 %; Platelet Count 310 10^3/cmm (157-399); Red Blood Count 3.47 10^6/uL (3.85-5.65); White Blood Count 8.26 10^3/uL (3.29-11.43)
[2024-07-01 09:37] LABS: Alanine Aminotransferase 15 U/L (0-33); Albumin Level 3.8 g/dL (3.5-5.2); Alkaline Phosphatase 79 U/L (35-105); Anion Gap 15.2 (5-19); Aspartate Amino Transferase 25 U/L (0-32); Blood Urea Nitrogen 62 mg/dL (8-23); Calcium 8.9 mg/dL (8.5-10.5); Carbon Dioxide 23 mmol/L (22-29); Chloride 106 mmol/L (98-107); Globulin 3.2 g/dL (1.3-4.6); Glomerular Filtration Rate 25.2 mL/min (90-130); Glucose 100 mg/dL (65-115); Lipase 13 U/L (13-60); Magnesium 1.8 mg/dL (1.7-2.3); Osmolality Calculated 308 mOsm/kg (285-295); Phosphorus 4.1 mg/dL (2.5-4.5); Potassium 4.2 mmol/L (3.5-5.1); Sodium 140 mmol/L (136-145); Total Bilirubin 0.2 mg/dL (0.15-1.2); Uric Acid 4.2 mg/dL (2.4-5.7)
[2024-07-01 09:43] LABS: Estmated Average Glucose 108; Hemoglobin A1C 5.4 % (4.0-6.0)
[2024-07-01 11:01] LABS: Bilirubin Urine Negative (Negative); Blood Urine Negative (Negative); Glucose Urine UA Negative (Normal); Ketones Urine Negative (Negative); Leukocyte Esterase Urine 1+ (Negative); Nitrate Urine Negative (Negative); Protein Urine 2+ (Negative); Specific Gravity, Urine 1.012 (1.005-1.030); Urine Appearance Clear (CLEAR); Urine Color Yellow (Yellow); Urobilinogen Urine 0.2 mg/dL (Negative); pH Urine 5.5 (5-7)
[2024-07-01 11:06] LABS: Bacteria Urine 4+ /hpf; Hyaline Casts Urine 1.65 /lpf; RBC Urine 0-2 /hpf (0-2); Squamous Epithelial Cell Urine 0-5 /hpf (0-5); WBC Urine 21-50 /hpf (0-5)
[2024-07-01 11:11] LABS: Add Urine Culture? Yes
[2024-07-01 11:46] LABS: Urine Creatinine 55 mg/dL (28-217)
[2024-07-01 11:48] LABS: UPRO/UCREAT Ratio 1.76 mg/mg CR; Urine Protein Random 97 mg/dL
[2024-07-02 12:15] LABS: Amylase 39 U/L (21-101)
== END 2024-07-01 08:11 | disposition home or self-care (01) ==
LOC: LAB 08:15
PROVIDERS: PCP Family Medicine
DX: Z94.0 Kidney transplant status (principal); E10.22 Type 1 diabetes mellitus with diabetic chronic kidney disease; Z79.899 Other long term (current) drug therapy; D84.9 Immunodeficiency, unspecified; R80.8 Other proteinuria; Z87.898 Personal history of other specified conditions; N18.30 Chronic kidney disease, stage 3 unspecified; Z94.83 Pancreas transplant status
CPT/HCPCS: 36415; 80053; 80197; 81001; 82150; 82570; 83036; 83690; 83735; 84100; 84156; 84550; 85025; 87086

== ENCOUNTER 2024-09-02 09:09 | Outpatient (CLI) | payer MEDICARE, MEDICAID, SELFPAY ==
[2024-09-02 09:42] LABS: Basophils # 0.1 10^3/uL (0.0-0.1); Basophils % 0.8 %; Eosinophils # 0.4 10^3/uL (0.0-0.8); Eosinophils % 4.2 %; Hematocrit 35.8 % (36-47); Lymphocytes # 1.4 10^3/uL (0.8-4.8); Lymphocytes % 16.1 %; Mean Corpuscular HGB Conc 32.4 g/dL (30-55); Mean Corpuscular Hemoglobin 31.1 pg (27-33); Mean Platelet Volume 10.4 fL (7.4-10.4); Monocytes # 0.7 10^3/uL (0.2-0.9); Monocytes % 8.7 %; Neutrophils # 5.92 10^3/uL (1.8-7.7); Neutrophils % 69.8 %; Nucleated Red Blood Cells % 0 %; Platelet Count 335 10^3/cmm (157-399); Red Blood Count 3.73 10^6/uL (3.85-5.65); Red Cell Distribution Width 13.8 % (12.1-15.1); White Blood Count 8.49 10^3/uL (3.29-11.43)
[2024-09-02 09:44] LABS: Bilirubin Urine Negative (Negative); Blood Urine Trace (Negative); Glucose Urine UA Negative (Normal); Ketones Urine Negative (Negative); Leukocyte Esterase Urine 3+ (Negative); Nitrate Urine Positive (Negative); Protein Urine 2+ (Negative); Specific Gravity, Urine 1.009 (1.005-1.030); Urine Appearance Cloudy (CLEAR); Urine Color Yellow (Yellow); Urobilinogen Urine 0.2 mg/dL (Negative)
[2024-09-02 09:47] LABS: Bacteria Urine 4+ /hpf; Hyaline Casts Urine 1.21 /lpf; RBC Urine 0-2 /hpf (0-2); Squamous Epithelial Cell Urine 0-5 /hpf (0-5); WBC Urine >100 /hpf (0-5)
[2024-09-02 09:51] LABS: Estmated Average Glucose 103; Hemoglobin A1C 5.2 % (4.0-6.0)
[2024-09-02 10:08] LABS: Alanine Aminotransferase 14 U/L (0-33); Albumin Level 3.8 g/dL (3.5-5.2); Alkaline Phosphatase 93 U/L (35-105); Anion Gap 11.2 (5-19); Aspartate Amino Transferase 18 U/L (0-32); Blood Urea Nitrogen 41 mg/dL (8-23); Calcium 9.2 mg/dL (8.5-10.5); Carbon Dioxide 25 mmol/L (22-29); Chloride 101 mmol/L (98-107); Ferritin 171 ng/mL (15-150); Globulin 3.3 g/dL (1.3-4.6); Glomerular Filtration Rate 23.8 mL/min (90-130); Glucose 104 mg/dL (65-115); Iron 44 ug/dL (37-145); Lipase 10 U/L (13-60); Magnesium 1.9 mg/dL (1.7-2.3); Osmolality Calculated 286 mOsm/kg (285-295); Phosphorus 3.6 mg/dL (2.5-4.5); Potassium 4.2 mmol/L (3.5-5.1); Sodium 133 mmol/L (136-145); Total Bilirubin 0.3 mg/dL (0.15-1.2); Total Iron Binding Capacity 200 mcg/dl; Total Protein 7.1 g/dL (6.6-8.7); Unsaturated Iron Binding 156 ug/dL (112-347); Uric Acid 4.4 mg/dL (2.4-5.7)
[2024-09-02 10:11] LABS: Add Urine Culture? Yes
[2024-09-02 10:12] LABS: Urine Creatinine 44 mg/dL (28-217)
[2024-09-02 10:17] LABS: UPRO/UCREAT Ratio 1.55 mg/mg CR; Urine Protein Random 68 mg/dL
[2024-09-03 05:04] LABS: Amylase 41 U/L (21-101)
[2024-09-03 14:48] LABS: Tacrolimus, Highly Sensitive 6.7 mcg/L
== END 2024-09-02 09:10 | disposition home or self-care (01) ==
LOC: LAB 09:12
PROVIDERS: PCP Family Medicine; Visit Provider Specialist
DX: D50.8 Other iron deficiency anemias (principal); E10.22 Type 1 diabetes mellitus with diabetic chronic kidney disease; Z94.0 Kidney transplant status; Z79.899 Other long term (current) drug therapy; D84.9 Immunodeficiency, unspecified; R80.8 Other proteinuria; Z87.898 Personal history of other specified conditions; N18.30 Chronic kidney disease, stage 3 unspecified; Z94.83 Pancreas transplant status
CPT/HCPCS: 36415; 80053; 80197; 81001; 82150; 82570; 82728; 83036; 83540; 83550; 83690; 83735; 84100; 84156; 84550; 85025; 87077; 87086; 87186

== ENCOUNTER → 2025-04-15 15:50 | Outpatient (BNVA) | payer MEDICARE, MEDICAID, SELFPAY | PROVIDERS: PCP Family Medicine; Visit Provider Internal Medicine Cardiovascular Disease | DX: I10 Essential (primary) hypertension (principal); E11.9 Type 2 diabetes mellitus without complications; Z94.0 Kidney transplant status; Z94.83 Pancreas transplant status; Z79.82 Long term (current) use of aspirin; F17.210 Nicotine dependence, cigarettes, uncomplicated; R07.9 Chest pain, unspecified; R06.02 Shortness of breath | CPT/HCPCS: 36415; 80048; 85025; 93005; 99204 ==

== ENCOUNTER 2025-04-18 07:29 | Outpatient (CLI) | payer MEDICARE, MEDICAID, SELFPAY ==
[2025-04-18 08:28] LABS: Hematocrit 26.8 % (36-47); Hemoglobin 8.70 g/dL (11.27-16.99); Mean Corpuscular HGB Conc 32.5 g/dL (30-55); Mean Corpuscular Hemoglobin 29.7 pg (27-33); Mean Corpuscular Volume 91.5 fl (85-98); Nucleated Red Blood Cells % 0 %; Platelet Count 376 10^3/cmm (157-399); Red Blood Count 2.93 10^6/uL (3.85-5.65); White Blood Count 8.03 10^3/uL (3.29-11.43)
[2025-04-18 08:36] LABS: Glucose Urine UA Negative (Normal); Nitrate Urine Negative (Negative); Specific Gravity, Urine 1.007 (1.005-1.030)
[2025-04-18 08:41] LABS: Add Urine Microscopic? YES; Universal Test for UA Present (0)
[2025-04-18 08:51] LABS: Alanine Aminotransferase 10 U/L (0-33); Albumin Level 3.7 g/dL (3.5-5.2); Alkaline Phosphatase 87 U/L (35-105); Anion Gap 22.3 (5-19); Aspartate Amino Transferase 23 U/L (0-32); Calcium 9.0 mg/dL (8.5-10.5); Carbon Dioxide 17 mmol/L (22-29); Chloride 103 mmol/L (98-107); Globulin 3.5 g/dL (1.3-4.6); Glucose 114 mg/dL (65-115); Lipase 16 U/L (13-60); Magnesium 1.9 mg/dL (1.7-2.3); Osmolality Calculated 311 mOsm/kg (285-295); Potassium 4.3 mmol/L (3.5-5.1); Sodium 138 mmol/L (136-145); Total Protein 7.2 g/dL (6.6-8.7); Uric Acid 5.6 mg/dL (2.4-5.7)
[2025-04-18 08:52] LABS: Creatinine Urine, Random 26 mg/dL (28-217)
[2025-04-18 08:55] LABS: UA Slide Review UA Slide Review Perf
[2025-04-18 09:07] LABS: Microalbum Creatinine Ratio Ur 2615 mg/dL (0-20)
[2025-04-18 10:33] LABS: Blood Urea Nitrogen 81 mg/dL (8-23)
[2025-04-18 11:15] LABS: Estmated Average Glucose 108; Hemoglobin A1C 5.4 % (4.0-6.0)
[2025-04-19 04:40] LABS: Amylase 43 U/L (21-101)
[2025-04-19 15:10] LABS: Tacrolimus, Highly Sensitive 6.9 mcg/L
== END 2025-04-18 07:30 | disposition home or self-care (01) ==
LOC: LAB 07:31
PROVIDERS: PCP Family Medicine; Visit Provider Specialist
DX: E10.22 Type 1 diabetes mellitus with diabetic chronic kidney disease (principal); Z94.0 Kidney transplant status; Z79.899 Other long term (current) drug therapy; D84.9 Immunodeficiency, unspecified; Z87.898 Personal history of other specified conditions; R80.8 Other proteinuria; N18.30 Chronic kidney disease, stage 3 unspecified; Z94.83 Pancreas transplant status; N18.6 End stage renal disease
CPT/HCPCS: 36415; 80053; 80197; 81001; 82044; 82150; 83036; 83690; 83735; 84100; 84550; 85025; 87077; 87086; 87186

== ENCOUNTER 2025-05-28 13:17 | Inpatient (IN) | payer OTHER, MEDICAID, SELFPAY ==
[2025-05-28] VITALS (22 sets, daily range): BP systolic 126–247; BP diastolic 56–119; PULSE 79–103; RESP 16; TEMP 36.9–37.2; O2SAT 95–100; BMI 19.3
--- OUTSIDE RECORDS SUMMARY | 2025-05-28 13:27 | XMS_ITS | Clinical Summary ---
Author Organization [facility] Facility Address [address] [facility] [address] [place] [address] Care Team Providers Care Urban Gardening Specialist Name Role Phone Unavailable Primary Care Provider Unavailabl e Encounters Date Type Department Care Team Description 05/05/2025 Office Communication [facility] [address] [place] [address] Jerilyn Mike MD 05/05/2025 Transcribe Orders [facility] [address] [place] [address] Reddy Veliz MD Chronic kidney disease, Stage V (HCC) (Primary Dx); Kidney transplant status; Pancreas transplant status (HCC) from Last 3 Months Social History Tobacco Use Types Packs/Day Years Used Date Smoking Tobacco: Never Assessed Comments Unknown Sex and Gender Information Value Date Recorded Sex Assigned at Not on file Legal Sex Female 9:55 AM EDT Gender Identity Not on file Sexual Orientation Not on file Plan of Treatment Upcoming Encounters Date Type Department Care Team (Late st Contact Info) Description 06/03/2025 1:40 PM CDT Office Visit [facility] [address] [place] [address] Jerilyn Mike MD [address] [place] [address] Health Maintenance Due Date Last Done Comments Breast Cancer Screening 1960 Colorectal Cancer Screening: Annual FOBT 2010 Colorectal Cancer Screening: Colonoscopy 2010 Colorectal Cancer Screening: Sigmoidoscopy 2010 Hepatitis B Vaccine (1 of 3 - Risk 3-dose series) 2021 08/11/2020 Diabetes: Ophthalmology Exam 05/05/2025 Diabetes: Pedal Pulse Checked 05/05/2025 Diabetes: Sensory Foot Exam 05/05/2025 Diabetes: Visual Foot Exam 05/05/2025 Influenza Vaccine (#1) 2025 , 07/09/2020, 05/29/2019, Additional history exists Pneumococcal Vaccine: 50+ Ye ars (3 of 3 - PCV20 or PCV21) 07/09/2025 07/09/2020, 08/07/2015 Diabetes: Hemoglobin A1C 07/22/2025 04/21/2025, 04/08 Insurance UHC Medicare Medicaid [place] ([facility])
--- OUTSIDE RECORDS SUMMARY | 2025-05-28 13:27 | XMS_ITS | Encounter Summary ---
Author Organization [facility] Address [address] [address] Phone Care Team Providers Care Arabic Teacher Name Role Phone Unavailable Primary Care Provider Unavailabl e Reason for Referral * Consultation (Routine) - Authorized Specialty Diagnoses / Procedures Referred By Contac t Referred To Contact Nephrology Diagnoses Kidney transplant status Pancreas transplant status (HCC) Chronic kidney disease, Stage V (HCC) Reddy Veliz MD [address] [facility] [address] [place] [address] Phone: tel: fax: Jerilyn Mike MD [address] [address] Phone: tel: fax: Referral ID Status Reason Start Date Expiration Date Visits Requested Visits Authorized [id number] Authorized Consult and Treat 05/05/2025 05/05/2026 1 1 Encounter Details Date Type Department Care Team (Latest Contact Info) Description 05/05/2025 Transcribe Orders [facility] [address] [address] Reddy Veliz MD [address] [id number] [place] [address] Chronic kidney disease, Stage V (HCC) (Primary Dx); Kidney transplant status; Pancreas transplant status (HCC) Social History Tobacco Use Types Packs/Day Years Used Date Smoking Tobacco: Never Assessed Comments Unknown Sex and Gender Information Value Date Recorded Sex Assigned at Not on file Legal Sex Female 9:55 AM EDT Gender Identity Not on file Sexual Orientation Not on file documented as of this encounter Plan of Treatment Upcoming Encounters Date Type Department Care Team (Late st Contact Info) Description 06/03/2025 1:40 PM CDT Office Visit [facility], [facility] [address] [place] [id number] Jerilyn Mike MD [address] [facility] [address] [place] [address] Scheduled Referrals Name Type Priority Associated Diagnoses Order Schedule Ambulatory referral to Nephrology Outpatient Referral Routine Kidney transplant status Pancreas transplant status (HCC) Chronic kidney disease, Stage V (HCC) Expected: 05/05/2025, Expires: 06/05/2026 documented as of this encounter Visit Diagnoses Diagnosis Chronic kidney disease, Stage V (HCC)- Primary Chronic kidney disease, Stage V Kidney transplant status Pancreas transplant status (HCC) documented in this encounter
[2025-05-28 14:02] LABS: Hematocrit 32.6 % (36-47); Hemoglobin 10.50 g/dL (11.27-16.99); Mean Corpuscular HGB Conc 32.2 g/dL (30-55); Mean Corpuscular Hemoglobin 30.7 pg (27-33); Mean Corpuscular Volume 95.3 fl (85-98); Nucleated Red Blood Cells % 0 %; Platelet Count 253 10^3/cmm (157-399); Red Blood Count 3.42 10^6/uL (3.85-5.65); White Blood Count 16.53 10^3/uL (3.29-11.43)
--- NOTE | 2025-05-28 14:33 | ECG_ITS ---
[facility] Test Date: 2025-05-28 Pat Name: Yu Nunez Department: Room: Gender: Female Sharepoint Architect: : 1960 Requested By: Aaron Yang Order Number: [id number] Yon MD: Joseph Leonard M.D. Measurements Intervals [place] Rate: 81 P: 57 NH: 143 QRS: 54 QRSD: 85 T: 68 QT: 371 QTc: 431 Interpretive Statements SINUS RHYTHM Compared to ECG 04/15/2025 16:22:56 No significant changes Electronically Signed On 05-31-2025 08:51:56 CDT by Joseph Leonard M.D. [email or web address]
[2025-05-28 14:40] LABS: Alanine Aminotransferase 19 U/L (0-33); Albumin Level 4.3 g/dL (3.5-5.2); Alkaline Phosphatase 93 U/L (35-105); Anion Gap 26.4 (5-19); Aspartate Amino Transferase 25 U/L (0-32); Calcium 8.7 mg/dL (8.5-10.5); Carbon Dioxide 13 mmol/L (22-29); Chloride 101 mmol/L (98-107); Creatinine Clr Calc Pharmacy 7.1739; Globulin 2.8 g/dL (1.3-4.6); Glucose 183 mg/dL (65-115); Lipase 11 U/L (13-60); Osmolality Calculated 316 mOsm/kg (285-295); Potassium 4.4 mmol/L (3.5-5.1); Sodium 136 mmol/L (136-145); Total Protein 7.1 g/dL (6.6-8.7)
[2025-05-28 14:42] LABS: Blood Urea Nitrogen 96 mg/dL (8-23)
[2025-05-28] MEDS: labetalol 5 mg/mL SDV 20mL 10 MG IVP (14:47)
[2025-05-28] MEDS: hyDRALAzine 20 mg/mL INJ 1 mL 10 MG IVP (14:51)
--- NOTE | 2025-05-28 15:45 | W.ED.GENADLT ---
HPI - General Adult General: Chief complaint: Nausea/Vomiting/Diarrhea Stated complaint: N/V Blood Time Seen by Provider: 05/28/25 14:33 History of Present Illness: 64-year-old female who presents to the emergency room with complaints of nausea vomiting and diarrhea she has not been able to keep anything down for the last couple of days. She has a history of end-stage renal disease and has received transplants she has been following with the transplant team her transplants have been actively failing and she was told last week that within the next few weeks she would be back on dialysis. She has not been able to keep any of her rejection medications down. She has had some blood streaking in her emesis. She has not had any fever sweats or chills. She has a history of malignant hypertension as well. On presentation her blood pressure is markedly elevated. Associated symptoms: Deny chest pain, dyspnea or rash Related Data Home Medications ?Medication ?Instructions ?Recorded ?Confirmed ascorbic acid (vitamin C) 500 mg 500 mg PO BID@0700,1730 09/13/20 05/28/25 tablet (Vitamin C) aspirin 81 mg chewable tablet 81 mg PO DAILY@209909/13/20 05/28/25 fluticasone propionate 50 1 spray intranasal DAILY@209909/13/20 05/28/25 mcg/actuation nasal spray,suspension loperamide 2 mg capsule 2 mg PO TID PRN Diarrhea 09/13/20 05/28/25 magnesium oxide 400 mg (241.3 mg 400 mg PO DAILY@1430 09/13/20 05/28/25 magnesium) tablet vitamin E acetate 134 mg (200 400 unit PO DAILY@0700 09/13/20 05/28/25 unit) capsule cholecalciferol (vitamin D3) 25 25 mcg PO DAILY 05/28/25 05/28/25 mcg (1,000 unit) capsule (Vitamin D3) losartan 50 mg tablet 100 mg PO DAILY 05/28/25 05/28/25 mycophenolate sodium 180 mg 180 mg PO QID 05/28/25 05/28/25 tablet,delayed release vitamins with calcium 27 tab PO DAILY 05/28/25 05/28/25 no.72-iron 27 mg-folic acid 1 mg tablet ( Vitamins Plus Low Iron) tacrolimus 0.5 mg capsule, See Rx Instructions .Route .COMPLEX 05/28/25 05/28/25 immediate-release Previous Rx's ?Medication ?Instructions ?Recorded carvedilol 12.5 mg tablet 25 mg (2 x 12.5 mg) PO BID #180 06/02/25 tabs clonidine HCl 0.1 mg tablet 0.1 mg PO TID #90 tabs 06/02/25 docusate sodium 100 mg capsule 100 mg PO BID #60 caps 06/02/25 hydralazine 100 mg tablet 100 mg PO TID #90 tabs 06/02/25 isosorbide mononitrate 60 mg 60 mg PO 0800,1999 #30 tabs 06/02/25 tablet,extended release 24 hr prednisone 5 mg tablet 5 mg PO DAILY #30 tabs 06/02/25 Allergies Allergy/AdvReac Type Severity Reaction Status Date / Time cranberry Allergy Severe ALGY-Swell Verified 05/30/25 08:10 Lip/Tongue/Throat codeine Allergy ADR-Halluci Verified 04/15/25 14:55 nating nifedipine Allergy ALGY-Swell Verified 05/29/25 20:23 Lip/Tongue/Throat povidone-iodine (From Allergy ADR-Itching Verified 04/15/25 14:55 Betadine) simvastatin Allergy Unknown Verified 05/28/25 15:55 trazodone Allergy ADR-Vomitin Verified 04/15/25 14:55 g Review of Systems Const: Denies: fever(s) or chills Card: Denies: chest pain Resp: Denies: dyspnea GI: Denies: abdominal pain : Denies: dysuria, urinary frequency or urinary urgency Musc: Denies: neck pain or back pain Skin/Breast: Denies: rash PFSH ED PFSH: Medical History Immunosuppressed status Moderate aortic valve stenosis Hepatitis C Post hysterectomy menopause Surgical History Transplant Arteriovenous fistula removed Renal transplant recipient Social History Smoking and tobacco/nicotine status: current every day tobacco/nicotine user Alcohol intake: never Substance/Drug Use: never Physical Exam Const: GENERAL APPEARANCE: cooperative ORIENTATION/CONSCIOUSNESS: Yes awake, Yes oriented to person, Yes oriented to place and Yes oriented to time HENMT: COMMON NORMALS: normocephalic, atraumatic and hearing grossly normal bilaterally HEAD & SCALP: normocephalic and atraumatic Resp: COMMON NORMALS: normal respiratory effort, No retractions, No use of accessory muscles and clear to auscultation bilaterally AUSCULTATION: clear to auscultation bilaterally Cardio: COMMON NORMALS: regular rate, regular rhythm and No murmurs present (Cardio) RATE: regular rate RHYTHM: regular rhythm GI: COMMON NORMALS: Soft to palpation and No hepatosplenomegaly present AUSCULTATION: Yes normoactive bowel sounds PALPATION: Yes Soft to palpation, No Tenderness to palpation present (GI), No Guarding due to palpation present (GI) and Yes No hepatosplenomegaly present Extremity: COMMON NORMALS: normal to inspection, capillary refill normal, no clubbing, cyanosis or edema, no calf tenderness and no pedal edema Neuro: SENSORIUM/ORIENTATION: Yes oriented to person, Yes oriented to place and Yes oriented to time Skin: COMMON NORMALS: no rashes or lesions noted GENERAL SKIN EXAM: no rashes or lesions noted Course Vital Signs: Vital signs: Vital Signs Temperature 98.8 F 06/03/25 05:00 Pulse Rate 63 06/03/25 05:35 Respiratory Rate 12 06/03/25 05:00 Blood Pressure 112/62 06/03/25 05:00 Pulse Oximetry 100 06/03/25 05:00 Oxygen Delivery Me thod Room Air 06/02/25 18:00 MDM - General Adult Medical Decision Making Patient in renal failure. Blood pressure also markedly elevated. I contacted her transplant team in [place]. At this point they feel that if she is started on dialysis and the nausea and vomiting will improve they are comfortable with giving a Solu-Medrol specifically stated 10 mg daily. I confirmed this dose with him verbally on the phone. Resume the tacrolimus as soon as she is able. Her previous fistula is very pulsatile no thrill or home suspect it is no longer viable for dialysis will consult surgery for tunneled dialysis catheter. Consulted nephrology as well. Lab Data 06/03/25 03:25 06/03/25 03:25 Radiology Impressions Chest/Abdomen/Pelvis CT 05/28/25 18:00 IMPRESSION: Trace bilateral pleural effusions and anasarca suggesting fluid overload. IMPRESSION: 1. Moderate intra and extrahepatic ductal dilatation. Correlate with prior imaging and serum bilirubin. Consider MRCP if indicated. 2. Moderately distended gallbladder containing gallstones without obvious CT evidence of cholecystitis. 3. Left lower quadrant renal transplant. Questionable mild hydronephrosis. 4. Mild diffuse mesenteric edema, trace ascites, and anasarca. Cholangiopancreatography MRI 05/29/25 08:00 Impression: 1. Moderate intrahepatic biliary ductal dilatation with diffuse periportal edema. Dilatation of the common bile duct with bile duct wall thickening. Findings suspicious for ascending cholangitis. Recommend correlation with biliary function studies 2. No visualized obstructing common bile duct calculi although the common bile duct wall appears thickened 3. Hydropic gallbladder with gallbladder wall edema similar to the prior CT with a few small gallbladder calculi. This may be due to primary or acute cholecystitis versus reactive edema from cholangitis 4. Trace bilateral pleural effusions. 5. Atrophic kidneys. Notified Agustin Willis MD at 05/29/2025 11:59 AM. C-Arm Fluoroscopy 05/29/25 13:44 IMPRESSION: Intraoperative imaging for RIGHT IJ dialysis catheter placement. Renal Ultrasound 06/01/25 11:31 IMPRESSION: 1. Severely atrophic redding right kidney. The redding left kidney is not well visualized. 2. Transplant kidney in the left lower quadrant demonstrates patency of the transplant renal artery and vein. There is no significant elevated resistive indices within the interlobar/arcuate arteries. There is however mild transplant hydronephrosis similar to CT abdomen and pelvis obtained on 05/28/2025. Laboratory Results WBC 16.53 10^3/uL (3.29-11.43) H 05/28/25 13:50 RBC 3.42 10^6/uL (3.85-5.65) L 05/28/25 13:50 Hgb 10.50 g/dL (11.27-16.99) L 05/28/25 13:50 Hct 32.6 % (36-47) L 05/28/25 13:50 MCV 95.3 fl (85-98) 05/28/25 13:50 MCH 30.7 pg (27-33) 05/28/25 13:50 MCHC 32.2 g/dL (30-55) 05/28/25 13:50 RDW 17.1 % (12.1-15.1) H 05/28/25 13:50 Plt Count 253 10^3/cmm (157-399) 05/28/25 13:50 MPV 11.6 fL (7.4-10.4) H 05/28/25 13:50 Neut % (Auto) 93.5 % 05/28/25 13:50 Lymph % (Auto) 2.0 % 05/28/25 13:50 [place] % (Auto) 3.8 % 05/28/25 13:50 Eos % (Auto) 0.0 % 05/28/25 13:50 Baso % (Auto) 0.2 % 05/28/25 13:50 Neut # (Auto) 15.46 10^3/uL (1.8-7.7) H 05/28/25 13:50 Lymph # (Auto) 0.3 10^3/uL (0.8-4.8) L 05/28/25 13:50 [place] # (Auto) 0.6 10^3/uL (0.2-0.9) 05/28/25 13:50 Eos # (Auto) 0.0 10^3/uL (0.0-0.8) 05/28/25 13:50 Baso # (Auto) 0.0 10^3/uL (0.0-0.1) 05/28/25 13:50 Nucleated RBC % (auto) 0 % 05/28/25 13:50 Nucleated RBCs # 0.0 /100WBC 05/28/25 13:50 Specimen Type Arterial 05/28/25 18:19 Sample Site Radial, left 05/28/25 18:19 ABG pH 7.38 (7.35-7.45) 05/28/25 18:19 ABG pCO2 25.3 mmHg (35-45) L 05/28/25 18:19 ABG pO2 88.4 mmHg (80.0-100.0) 05/28/25 18:19 ABG PO2/FiO2 Ratio 420 05/28/25 18:19 ABG HCO3 14.8 mmol/L (22-26) L 05/28/25 18:19 ABG O2 Saturation 97.4 05/28/25 18:19 ABG Base Excess -9.1 mmol/L (-2.0-2.0) L 05/28/25 18:19 [place] Test Pos 05/28/25 18:19 A-a O2 Gradient 3.6 mmHg (5-10) L 05/28/25 18:19 Hematocrit 29.4 % (37-47) L 05/28/25 18:19 Hgb O2 Saturation 96.2 % (95-100) 05/28/25 18:19 Carboxyhemoglobin 0.9 %THgb (0.4-20.1) 05/28/25 18:19 Methemoglobin 0.3 % (0.4-1.5) L 05/28/25 18:19 Total Hemoglobin 9.6 g/dL (12-16) L 05/28/25 18:19 Sodium 140.0 mmol/L (131-143) 05/28/25 18:19 Potassium 3.9 mmol/L (3.5-5.0) 05/28/25 18:19 Glucose 180.0 mg/dL (70-115) H 05/28/25 18:19 Ionized Calcium 1.1 mmol/L (1.1-1.4) 05/28/25 18:19 O2 Delivery Device room air 05/28/25 18:19 FiO2 21.0 % 05/28/25 18:19 Cartographic Drafter ID [id number] 05/28/25 18:19 Sodium 136 mmol/L (136-145) 05/28/25 13:50 Potassium 4.4 mmol/L (3.5-5.1) 05/28/25 13:50 Chloride 101 mmol/L (98-107) 05/28/25 13:50 Carbon Dioxide 13 mmol/L (22-29) L 05/28/25 13:50 Anion Gap 26.4 (5-19) H 05/28/25 13:50 BUN 96 mg/dL (8-23) H* 05/28/25 13:50 Creatinine 6.2 mg/dL (0.5-0.9) H* 05/28/25 13:50 GFR Calculation 6.8 mL/min (90-130) L 05/28/25 13:50 Glucose 183 mg/dL (65-115) H 05/28/25 13:50 Calculated Osmolality 316 mOsm/kg (285-295) H 05/28/25 13:50 Calcium 8.7 mg/dL (8.5-10.5) 05/28/25 13:50 Iron 55 ug/dL (37-145) 05/28/25 13:50 TIBC 270 mcg/dl 05/28/25 13:50 % Saturation 20.3 % (20-50) 05/28/25 13:50 Unsat Iron Binding 215 ug/dL (112-347) 05/28/25 13:50 Total Bilirubin 0.5 mg/dL (0.15-1.2) 05/28/25 13:50 AST 25 U/L (0-32) 05/28/25 13:50 ALT 19 U/L (0-33) 05/28/25 13:50 Alkaline Phosphatase 93 U/L (35-105) 05/28/25 13:50 Total Protein 7.1 g/dL (6.6-8.7) 05/28/25 13:50 Albumin 4.3 g/dL (3.5-5.2) 05/28/25 13:50 Globulin 2.8 g/dL (1.3-4.6) 05/28/25 13:50 Lipase 11 U/L (13-60) L 05/28/25 13:50 Procalcitonin 0.23 ng/mL (0-0.5) 05/28/25 13:50 TSH 2.73 uIU/mL (0.27-4.20) 05/28/25 13:50 All radiology interpretation(s) finalized by discharge Discharge Plan Discharge Patient Disposition: Admitted As Inpatient Admit Provider: Agustin Willis Clinical Impression: ESRD (end stage renal disease), Renal transplant recipient, Accelerated hypertension, Pancreas transplanted, Kidney transplant failure Condition: Stable Discharge Diet: As Directed Discharge Activity: Resume usual activity Coding Level of Care Code ED Leaded Glass Installer for Tanya Neil
[2025-05-28] MEDS: nicardipine 20 MG/200 ML PREMIX 50 MG IV ×2 (15:55→21:25)
--- NOTE | 2025-05-28 15:56 | PC.PHAR ---
Patient states while waiting in the waiting room they called and told her to increase her Tacrolimus to 3 tabs in the morning and 3 in the evening . Patient has discharge papers with her stating to change her Losartan to two tablets once a day from one tablet twice a day . Patient has not taken any medication since Monday AM meds. Patient states she took night time meds on Monday but threw them up.
--- NOTE | 2025-05-28 18:00 | CTR_ITS ---
PROCEDURE INFORMATION: Exam: CT Chest Without Contrast; Diagnostic Exam date and time: 05/28/2025 6:18 PM Age: 64 years old Clinical indication: Fever and nausea; Shortness of breath; Prior surgery; Surgery date: 6+ months; Surgery type: Kidney transplant; Additional info: Sepsis, che on ckd, post kidney transplant TECHNIQUE: Imaging protocol: Diagnostic computed tomography of the chest without contrast. Radiation optimization: All CT scans at this facility use at least one of these dose optimization techniques: automated exposure control; mA and/or kV adjustment per patient size (includes targeted exams where dose is matched to clinical indication); or iterative reconstruction. COMPARISON: CR XR ribs RT 2V* [id number] 07/15/2022 10:46 AM RADIATION DOSE METRICS: Total DLP (mGy-cm): 362.02 FINDINGS: Lungs: Mild bibasilar atelectasis. No pulmonary consolidation. No pulmonary mass or suspicious pulmonary nodule. Breathing artifact limits evaluation of the interstitium. Pleural spaces: Trace poue-fwjrlnj-gaou-right pleural effusions. No pneumothorax. Heart: Heart size is at the upper limits of normal. Trace pericardial fluid may be physiologic. Coronary arteries: Severe coronary artery calcification. Lymph nodes: No enlarged lymph nodes are identified. Vasculature: Atherosclerotic calcifications of the aorta are present. No aneurysm is identified. Bones/joints: No acute osseous abnormalities are seen. Soft tissues: Mild diffuse subcutaneous edema. PROCEDURE INFORMATION: Exam: CT Abdomen And Pelvis Without Contrast Exam date and time: 05/28/2025 6:18 PM Age: 64 years old Clinical indication: Fever and nausea; Shortness of breath; Prior surgery; Surgery date: 6+ months; Surgery type: Kidney transplant; Additional info: Sepsis, che on ckd, post kidney transplant TECHNIQUE: Imaging protocol: Computed tomography of the abdomen and pelvis without contrast. Radiation optimization: All CT scans at this facility use at least one of these dose optimization techniques: automated exposure control; mA and/or kV adjustment per patient size (includes targeted exams where dose is matched to clinical indication); or iterative reconstruction. COMPARISON: CR XR ribs RT 2V* [id number] 07/15/2022 10:46 AM RADIATION DOSE METRICS: Total DLP (mGy-cm): 362.02 FINDINGS: Liver: The liver is normal. No hepatic masses are identified. Gallbladder and biliary ducts: Moderately distended gallbladder containing gallstones. No obvious gallbladder wall thickening or pericholecystic inflammatory change. Moderate intra and extrahepatic ductal dilatation. Pancreas: The pancreas is atrophic without obvious abnormality. Spleen: The spleen is normal. Adrenal glands: The adrenal glands are normal. Kidneys and ureters: Severely atrophic habematolel kidneys. Left lower quadrant renal transplant. Questionable mild hydronephrosis. Stomach and bowel: Mild colonic diverticulosis without diverticulitis. There is no large or small bowel obstruction. There is no evidence of bowel wall thickening. Appendix: The majority of a normal appendix is identified. No secondary evidence of acute appendicitis. Intraperitoneal space: Mild diffuse mesenteric edema and trace ascites. No definitive fluid collection. No pneumoperitoneum. Vasculature: Atherosclerotic calcifications of the aorta are present. No aneurysm is identified. Lymph nodes: No enlarged lymph nodes are identified. Urinary bladder: The bladder is unremarkable. Reproductive: The uterus is absent. Bones/joints: No acute osseous abnormalities are seen. Soft tissues: Mild diffuse subcutaneous edema. CT/[place] [id number] IMPRESSION: Trace bilateral pleural effusions and anasarca suggesting fluid overload. IMPRESSION: 1. Moderate intra and extrahepatic ductal dilatation. Correlate with prior imaging and serum bilirubin. Consider MRCP if indicated. 2. Moderately distended gallbladder containing gallstones without obvious CT evidence of cholecystitis. 3. Left lower quadrant renal transplant. Questionable mild hydronephrosis. 4. Mild diffuse mesenteric edema, trace ascites, and anasarca.
--- NOTE | 2025-05-28 18:10 | USCV_ITS ---
Yu Nunez Age: 64 Gender: F : 1960 Exam Date: 05/28/2025 22:25 Ordering Phys: Agustin Willis MD Technologist: CARLITO Exam Location: [facility] Indication: dvt No history of DVT per patient. No edema. No erythema. No leg pain. HISTORY: end-stage renal disease s/p transplants which are failing. PROCEDURES: Venous duplex imaging was performed in bilateral lower extremities. The following venous structures were evaluated: common femoral vein, profunda vein, proximal portion of the greater saphenous vein, superficial femoral vein, and the popliteal vein. In addition, the posterior tibial and peroneal veins were evaluated. Serial compression, augmentation maneuvers, and spectral Doppler flow evaluation were performed, which were normal. Bilaterally, the common femoral, superficial femoral, profunda femoral, popliteal, posterior tibial, greater saphenous veins, and the peroneal veins were identified and interrogated in the standard fashion. These veins were found to be easily compressible with spontaneous blood flow. No evidence of thrombus noted. CONCLUSIONS No evidence of right lower extremity DVT. No evidence of left lower extremity DVT. Tushar Dixon MD (Electronically Signed) Final Date: 29 May 2025 16:16 S
--- NOTE | 2025-05-28 18:10 | USCV_ITS ---
Yu Nunez Age: 64 Gender: F : 1960 Exam Date: 05/28/2025 22:58 Ordering Phys: Agustin Willis MD Technologist: CARLITO Exam Location: [facility] [place] Indication: htn urgency, History of end-stage renal disease s/p transplants, which are failing. BP: 146 / 70 HR: 91 Rhythm: Sinus Technical Quality: Adequate MEASUREMENTS (Male / Female) Normal Values 2D ECHO LV Diastolic Diameter PLAX 3.8 cm 4.2 - 5.9 / 3.9 - 5.3 cm IVS Diastolic Thickness 1.5 cm 0.6 - 1.0 / 0.6 - 0.9 cm IVS Systolic Thickness 1.7 cm LVPW Diastolic Thickness 1.3 cm 0.6 - 1.0 / 0.6 - 0.9 cm LVPW Systolic Thickness 1.8 cm LVOT Diameter 1.6 cm LV Ejection Fraction 2D Teich 73.5 % LV Ejection Fraction MOD 4C 73.1 % LV Ejection Fraction MOD 2C 86.9 % LV Ejection Fraction 2C AL 88.8 % LA Diameter 2.7 cm Aorta at Sinotubular Diameter 2.3 cm IVC Diameter 1.9 cm M-MODE LA Ao Ratio MM 1.5 AV Cusp Separation MM 1.6 cm DOPPLER AV Peak Velocity 200.0 cm/s LVOT Peak Velocity 126.0 cm/s AV Area Cont Eq vti 1.8 cm squared AV Area Cont Eq pk 1.3 cm squared MV Peak Velocity 152.0 cm/s MV Area PHT 5.1 cm squared Mitral E to A Ratio 1.1 TV Peak Velocity 270.3 cm/s TR Peak Velocity 310.0 cm/s TR Peak Gradient 38.4 mmHg TV Peak E Velocity 71.0 cm/s PV Peak Velocity 117.0 cm/s FINDINGS Left Ventricle Normal left ventricular size, systolic function and wall thickness, with no regional wall motion abnormalities. Left ventricular ejection fraction is estimated at 60 %. Grade I/IV diastolic dysfunction (abnormal relaxation filling pattern), normal to mildly elevated filling pressures. Right Ventricle The right ventricle is normal in size and function. Mild pulmonary hypertension, RVSP 38 mmHg. Right Atrium The right atrium is normal in size. Left Atrium Moderately increased left atrial size. Mitral Valve Structurally normal mitral valve without significant stenosis or prolapse. There is no mitral regurgitation. Aortic Valve Severe aortic valve calcification. Moderate aortic valve stenosis, mean gradient 8.3 mmHg, BALJIT 1.8 cm squared. Trace aortic valve regurgitation. Tricuspid Valve Mild tricuspid valve regurgitation. Pulmonic Valve Trace pulmonary valve regurgitation. Pericardium Normal pericardium without effusion. Aorta Normal ascending aorta dimension. IVC The inferior vena cava appears normal. CONCLUSIONS Normal left ventricular size, systolic function and wall thickness, with no regional wall motion abnormalities. Left ventricular ejection fraction is estimated at 60 %. Grade I/IV diastolic dysfunction (abnormal relaxation filling pattern), normal to mildly elevated filling pressures. Severe aortic valve calcification. Moderate aortic valve stenosis, mean gradient 8.3 mmHg, BALJIT 1.8 cm squared. Trace aortic valve regurgitation. Moderately increased left atrial size. The right ventricle is normal in size and function. Mild pulmonary hypertension, RVSP 38 mmHg. Mild tricuspid valve regurgitation. There is no pericardial effusion. Right atrial pressure is around 5 mm of mercury. Yuliya Tello MD (Electronically Signed) Final Date: 29 May 2025 10:56 S
--- NOTE | 2025-05-28 18:16 | PM.HP ---
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 Patient states she followed up with her transplant physicians on Monday and she was told that her renal functions are worsening and she would possibly need dialysis. She has not been able to keep her medications down since Monday either. In the ER she was found to have worsening renal function with creatinine of 6, BUN of 190. ER physician spoke with the transplant team at who recommended patient to be started on dialysis, continuing current antitransplant medication except tacrolimus and starting her on low-dose methylprednisone 10 mg IV daily. Examination patient is in distress because of nausea, dehydrated, blood pressure of 150 over 80 mmHg on nicardipine drip, saturating well on room air. Review of Systems General: Reports: 10 or more systems reviewed and unremarkable except in HPI and below Const: Denies: fever(s), chills, body aches, change in appetite, change in weight, malaise, night sweats, diaphoresis, change in sleep pattern, daytime sleepiness or snoring Eyes: Denies: change in vision, blurry vision, photophobia, eye discomfort or eye discharge ENMT: Denies: throat pain, enlarged tonsils, hoarseness, mouth pain, oral sores, dry mouth, tinnitus, nasal congestion or post nasal drip Card: Denies: chest pain, palpitations, irregular heart rhythm, edema, swelling of feet/ankles, lightheadedness, syncope, pre-syncope, dyspnea on exertion, orthopnea, leg pain with exertion or acrocyanosis Resp: Denies: dyspnea, productive cough, non-productive cough, wheezing, stridor, pain on inspiration, change in phlegm color, hemoptysis or chest congestion GI: Denies: abdominal pain, nausea, vomiting, hematemesis, coffee ground emesis, dysphagia, heartburn, diarrhea, constipation, bloating, GI cramping, change in bowel habits, pain on defecation, hematochezia or melena : Denies: flank pain, dysuria, urinary frequency, urinary urgency, urinary hesitancy, nocturia or hematuria Musc: Denies: neck pain, back pain, extremity pain, joint pain, joint swelling, joint redness, joint stiffness or limited range of motion Neuro: Denies: headache(s), numbness in extremities, weakness in extremities, sensory changes, lack of coordination, difficulty walking, frequent falls, dizziness, vertigo, confusion, Slurred speech present, difficulty communicating thoughts or seizure-like activity Psych: Denies: anxiety, depression, mood swings, panic attacks, hopelessness or irritability Endo: Denies: polyuria, polydipsia, tired all the time, cold intolerance, excessive sweating, flushing or heat intolerance Ishan/Lymph: Denies: easy bruising or easy bleeding All/Imm: Denies: tongue swelling, facial swelling or acute wheezing Medications/Allergies Home Medications ?Medication ?Instructions ?Recorded ?Confirmed ?Last Taken ?Type ascorbic acid (vitamin C) 500 mg 500 mg PO BID@0700,1730 09/13/20 05/28/25 05/26/25 07:00 History tablet (Vitamin C) aspirin 81 mg chewable tablet 81 mg PO DAILY@209909/13/20 05/28/25 05/25/25 21:00 History fluticasone propionate 50 1 spray intranasal DAILY@209909/13/20 05/28/25 01/03/22 History mcg/actuation nasal spray,suspension loperamide 2 mg capsule 2 mg PO TID PRN Diarrhea 09/13/20 05/28/25 Unknown History magnesium oxide 400 mg (241.3 mg 400 mg PO DAILY@1430 09/13/20 05/28/25 05/26/25 08:00 History magnesium) tablet vitamin E acetate 134 mg (200 400 unit PO DAILY@0700 09/13/20 05/28/25 05/25/25 History unit) capsule carvedilol 12.5 mg tablet 12.5 mg PO BID #180 tabs 04/18/25 05/28/25 05/26/25 07:00 Rx cholecalciferol (vitamin D3) 25 25 mcg PO DAILY 05/28/25 05/28/25 05/26/25 History mcg (1,000 unit) capsule (Vitamin D3) diphenhydramine HCl 25 mg tablet 25 mg PO TID PRN Allergy Symptoms 05/28/25 05/28/25 05/25/25 History (Benadryl Allergy) losartan 50 mg tablet 100 mg PO DAILY 05/28/25 05/28/25 05/25/25 History mycophenolate sodium 180 mg 180 mg PO QID 05/28/25 05/28/25 05/26/25 08:00 History tablet,delayed release vitamins with calcium 27 tab PO DAILY 05/28/25 05/28/25 05/25/25 19:00 History no.72-iron 27 mg-folic acid 1 mg tablet ( Vitamins Plus Low Iron) tacrolimus 0.5 mg capsule, See Rx Instructions .Route .COMPLEX 05/28/25 05/28/25 05/26/25 09:00 History immediate-release Allergies Allergy/AdvReac Type Severity Reaction Status Date / Time amlodipine Allergy Unknown Verified 05/28/25 15:55 codeine Allergy ADR-Halluci Verified 04/15/25 14:55 nating povidone-iodine (From Allergy ADR-Itching Verified 04/15/25 14:55 Betadine) simvastatin Allergy Unknown Verified 05/28/25 15:55 trazodone Allergy ADR-Vomitin Verified 04/15/25 14:55 g PFSH Acute PFSH: Medical History (Updated 05/28/25 @ 18:57 by Agustin Willis MD) Hepatitis C Post hysterectomy menopause Surgical History Transplant Arteriovenous fistula removed Renal transplant recipient Social History Smoking and tobacco/nicotine status: current every day tobacco/nicotine user Alcohol intake: never Substance/Drug Use: never Vitals/I&O/Wt Last Vital Signs Temp 98.4 F 05/28/25 14:00 Pulse 94 05/28/25 16:18 Resp 16 05/28/25 14:00 BP 146/70 05/28/25 16:52 Pulse Ox 99 05/28/25 16:18 O2 Del Method Room Air 05/28/25 14:00 05/28/25 05/28/25 05/28/25 06:59 14:59 22:59 Intake Total 49.167 / 49.167 Balance 49.167 / 49.167 Weight last 48 hrs Weight 47.174 kg Physical Exam Narrative: General: In distress because of nausea, AO x 3, dehydrated HEENT: PERRLA, pupils bilaterally equal and reactive Chest: Normal vesicular breath sounds, no added sounds, equal good air entry bilaterally CVS: S1-S2 regular, no murmurs, no tachycardia, no gallops, no rubs Abdomen: Soft, nontender, no organomegaly, bowel sounds present Neuro: No focal deficits, no facial deformity, AO x3, power 5/5 in all limbs Data 05/28/25 13:50 05/28/25 13:50 A&P Assessment and plan 1. Nausea and vomiting: Most likely in setting of uremia. Lipase within normal limits. LFTs within normal limits. Zofran as needed, scopolamine patch. IV Protonix 40 mg twice daily. Clear liquid diet for now. 2. Acute kidney injury superimposed on CKD: Failure of renal transplant. Associated with anion gap acidosis along with uremia. Check ABG. Start on bicarb drip at 75 cc/h. Monitor BMP every 8 hourly. Hackett catheter, strict input output charting. Nephrology consulted from the ER. CT abdomen pelvis for further evaluation to rule out obstructive nephropathy. Check urine lites, urine creatinine, urine eosinophil. Hepatitis panel. Urine drug screen. 3. Uremia: BUN worsening to 96. Creatinine up to 6.2. Nephrology consulted from the ER. Surgery consulted for placement of tunneled catheter. 4. High anion gap metabolic acidosis: 5. Accelerated hypertension: Goal blood pressure less than 140/90 mmHg. Patient takes Coreg 12.5 mg twice daily along with losartan at home. Not able to maintain oral medications. Continue with nicardipine drip with goal of 140/90. Continue with home dose of Coreg. Hold off on losartan. Check echocardiogram. 6. Pancreas transplanted: CT on close as above. Lipase within normal limits. 7. Renal transplant recipient: Discussion between ER physician and transplant team at . Continue with home dose of mycophenolate. Start on IV Solu-Medrol 30 mg twice daily. Will switch to tacrolimus once patient is able to maintain oral intake. Check tacro level. Does have an old fistula. Plan: Full code Clear liquid diet Protonix for PUD prophylaxis Heparin 5000 every 12 hourly for DVT prophylaxis PDMP PDMP Reviewed: Not Reviewed Attestations Medical Necessity Statement*: Admission for more than 2 midnights for management of BRYNN on CKD, uremia leading to nausea and vomiting, dehydration, high-end of metabolic acidosis in a patient with pancreatic and renal transplant with concern for renal transplant failure, hypertensive urgency Critical Care Time: The high probability of a clinically significant, sudden or life threatening deterioration of the patient's [cardiac, renal, GI] system(s) required my full and direct attention, intervention and personal management. The critical care time is as shown. This time is in addition to time spent performing any reported procedures but includes the following: [x] Data and vital sign review and interpretation [x] Patient assessment, examination and intervention [x] Documentation [x] Medication orders and management Critical Care Time (min): 65 Coding Level of Care Code Critical Care >/= 30 minutes Critical care time (in minutes): 65 The high probability of a clinically significant, sudden or life threatening deterioration, as referenced in this documentation, required my full and direct attention, intervention and personal management. The critical care time shown is in addition to time spent performing any reported separately billable procedures and includes the following: [x] Data and vital sign review and interpretation [x] Patient assessment, examination and intervention [x] Medication orders and management [x] Patient/Family updates as able [x] Care Coordination and Documentation. Diagnoses Nausea and vomiting R11.2 Acute kidney injury superimposed on CKD N17.9; N18.9 Uremia N19 High anion gap metabolic acidosis E87.29 Accelerated hypertension I10 Pancreas transplanted Z94.83 Renal transplant recipient Z94.0
[2025-05-28 18:36] LABS: ABG PCO2 25.3 mmHg (35-45); ABG PH Result 7.38 (7.35-7.45); Alveolar-Arterial Oxygen Gradi 3.6 mmHg (5-10); Arterial Blood Gas Hematocrit 29.4 % (37-47); Blood Gas Allen Test Pos; Blood Gas Sample Site Radial, left; Blood Gas Sample Type Arterial; Carboxyhemoglobin 0.9 %THgb (0.4-20.1); Glucose Level-ABG 180.0 mg/dL (70-115); HCO3 ABG 14.8 mmol/L (22-26); Ionized Calcium Level - ABG 1.1 mmol/L (1.1-1.4); Methemoglobin 0.3 % (0.4-1.5); Oxygen Saturation ABG 97.4; PO2 ABG 88.4 mmHg (80.0-100.0); Potassium Level - ABG 3.9 mmol/L (3.5-5.0); Sodium Level - ABG 140.0 mmol/L (131-143)
[2025-05-28 18:43] LABS: Blood Gas Operator Identificat amh; PO2 FiO2 Ratio Arterial Blood 420
[2025-05-28 18:56] LABS: Procalcitonin 0.23 ng/mL (0-0.5); Thyroid Stimulating Hormone 2.73 uIU/mL (0.27-4.20)
--- NOTE | 2025-05-28 18:57 | PM.CONSULT ---
Providers/Reason For Consult Consulting Physician/Specialty*: Dr. Gore general surgery Reason for Consult*: Tunneled dialysis catheter Attending Physician: Agustin Willis MD Primary Care Provider: Ale Olivier MD History of Present Illness History of Present Illness Yu Nunez is a 64 year old female whom surgery was consulted to place a tunneled dialysis catheter. History of failed kidney and pancreas transplant. Medications/Allergies Home Medications ?Medication ?Instructions ?Recorded ?Confirmed ?Last Taken ?Type ascorbic acid (vitamin C) 500 mg 500 mg PO BID@0700,1730 09/13/20 05/28/25 05/26/25 07:00 History tablet (Vitamin C) aspirin 81 mg chewable tablet 81 mg PO DAILY@209909/13/20 05/28/25 05/25/25 21:00 History fluticasone propionate 50 1 spray intranasal DAILY@209909/13/20 05/28/25 01/03/22 History mcg/actuation nasal spray,suspension loperamide 2 mg capsule 2 mg PO TID PRN Diarrhea 09/13/20 05/28/25 Unknown History magnesium oxide 400 mg (241.3 mg 400 mg PO DAILY@1430 09/13/20 05/28/25 05/26/25 08:00 History magnesium) tablet vitamin E acetate 134 mg (200 400 unit PO DAILY@0700 09/13/20 05/28/25 05/25/25 History unit) capsule carvedilol 12.5 mg tablet 12.5 mg PO BID #180 tabs 04/18/25 05/28/25 05/26/25 07:00 Rx cholecalciferol (vitamin D3) 25 25 mcg PO DAILY 05/28/25 05/28/25 05/26/25 History mcg (1,000 unit) capsule (Vitamin D3) diphenhydramine HCl 25 mg tablet 25 mg PO TID PRN Allergy Symptoms 05/28/25 05/28/25 05/25/25 History (Benadryl Allergy) losartan 50 mg tablet 100 mg PO DAILY 05/28/25 05/28/25 05/25/25 History mycophenolate sodium 180 mg 180 mg PO QID 05/28/25 05/28/25 05/26/25 08:00 History tablet,delayed release vitamins with calcium 27 tab PO DAILY 0805/28/25 05/25/25 19:00 History no.72-iron 27 mg-folic acid 1 mg tablet ( Vitamins Plus Low Iron) tacrolimus 0.5 mg capsule, See Rx Instructions .Route .COMPLEX 05/28/25 05/28/25 05/26/25 09:00 History immediate-release Allergies Allergy/AdvReac Type Severity Reaction Status Date / Time amlodipine Allergy Unknown Verified 05/28/25 15:55 codeine Allergy ADR-Halluci Verified 04/15/25 14:55 nating povidone-iodine (From Allergy ADR-Itching Verified 04/15/25 14:55 Betadine) simvastatin Allergy Unknown Verified 05/28/25 15:55 trazodone Allergy ADR-Vomitin Verified 04/15/25 14:55 g Current Medications Generic Name Dose Route Start Last Admin Trade Name Freq PRN Reason Stop Dose Admin Nicardipine/Sodium Chloride 20 mg in 200 mls @ 0 mls/hr 05/28/25 15:45 05/28/25 16:54 Cardene IV 3 mg/hr .Q0M RENETTA 30 mls/hr Protocol Titration Per Protocol PFSH Acute PFSH: Medical History (Updated 05/29/25 @ 14:56 by Agustin Willis MD) Immunosuppressed status Moderate aortic valve stenosis Hepatitis C Post hysterectomy menopause Surgical History Transplant Arteriovenous fistula removed Renal transplant recipient Social History Smoking and tobacco/nicotine status: current every day tobacco/nicotine user Alcohol intake: never Substance/Drug Use: never Vitals/I&O/Wt Last Vital Signs Temp 98.4 F 05/28/25 14:00 Pulse 98 05/28/25 18:43 Resp 16 05/28/25 14:00 BP 151/74 05/28/25 18:43 Pulse Ox 99 05/28/25 18:43 O2 Del Method Room Air 05/28/25 14:00 05/28/25 05/28/25 05/28/25 06:59 14:59 22:59 Intake Total 49.167 / 49.167 Balance 49.167 / 49.167 Weight last 48 hrs Weight 104 lb Physical Exam Narrative: Chest: Unlabored breathing room air. No lymphadenopathy. Heart: Regular rate and rhythm. Abdomen: Soft, nontender, nondistended. No masses or lymphadenopathy. Data 05/29/25 04:11 05/29/25 04:11 A&P Assessment and plan 1. Renal failure: Plan: 64-year-old female who presents with renal failure. Will plan for tunneled dialysis catheter 05/29/2025. PDMP PDMP Reviewed: Not Reviewed Coding Level of Care Code 76117 Diagnoses Renal failure N19
--- NOTE | 2025-05-28 18:57 | PM.MISC ---
Miscellaneous Note Note: Plan for TDC 05/29. Full consult note to follow
[2025-05-28 19:07] LABS: Iron 55 ug/dL (37-145); Total Iron Binding Capacity 270 mcg/dl; Unsaturated Iron Binding 215 ug/dL (112-347)
--- NOTE | 2025-05-28 19:48 | PC.NURSE ---
CHECKED MICROMEDEX FOR SODIUM BICARB AND ZOSYN AND COMPATIBILITY AND DOUBLE CHECK BY CALLING RX BOTH SAID THEY ARE GOOD
[2025-05-28] MEDS: piperacillin-tazobactam 3.375 GM in sodium chloride 0.9% (plus) 50 ML IV (20:09)
[2025-05-28] MEDS: methylPREDNISolone sod succ 40 mg/mL INJ 10 MG IVP (20:10)
[2025-05-28 20:31] LABS: Lactic Sepsis W/Reflex 1.5 mmol/L (0.5-2.2)
--- NOTE | 2025-05-28 21:26 | PC.NURSE ---
Patient arrived to ICU 11 at 2045. Alert and oriented.
[2025-05-28 21:46] LABS: Glucose Urine UA Negative (Normal); Nitrate Urine Negative (Negative); Specific Gravity, Urine 1.018 (1.005-1.030)
[2025-05-28 21:47] LABS: Vitamin B12 1788 pg/mL (232-1245)
[2025-05-28 21:51] LABS: Add Urine Microscopic? YES; PCP Screen Urine Negative (Negative)
[2025-05-28 22:01] LABS: Hepatitis A Antibody IgM Non-Reactive (Nonreactive); Hepatitis B Surface Antigen Non-Reactive (Nonreactive)
[2025-05-28] MEDS: pantoprazole 40 mg SDV IVP (22:08)
[2025-05-28] MEDS: heparin 5,000 unit/mL INJ 1 mL 5000 UNIT SUBCUT (22:09)
[2025-05-28 22:14] LABS: Potassium, Radom Urine 41 mmol/L; Urine Random Chloride 27 mmol/L; Urine Random Sodium 34 mmol/L
[2025-05-28 23:00] LABS: MRSA PCR OZH (swab) NOT DETECTED (Not Detecte)
[2025-05-29] VITALS (88 sets, daily range): BP systolic 118–181; BP diastolic 53–98; PULSE 73–95; RESP 14–20; TEMP 36.4–37.1; O2SAT 94–100; BMI 19.3
[2025-05-29 04:54] LABS: Hematocrit 24.1 % (36-47); Hemoglobin 8.00 g/dL (11.27-16.99); Mean Corpuscular HGB Conc 33.2 g/dL (30-55); Mean Corpuscular Hemoglobin 30.2 pg (27-33); Mean Corpuscular Volume 90.9 fl (85-98); Nucleated Red Blood Cells % 0 %; Platelet Count 201 10^3/cmm (157-399); Red Blood Count 2.65 10^6/uL (3.85-5.65); White Blood Count 10.82 10^3/uL (3.29-11.43)
[2025-05-29 05:18] LABS: Alanine Aminotransferase 17 U/L (0-33); Albumin Level 3.6 g/dL (3.5-5.2); Alkaline Phosphatase 72 U/L (35-105); Anion Gap 21.0 (5-19); Aspartate Amino Transferase 23 U/L (0-32); Calcium 7.8 mg/dL (8.5-10.5); Carbon Dioxide 16 mmol/L (22-29); Chloride 103 mmol/L (98-107); Creatinine Clr Calc Pharmacy 6.9967; Globulin 2.6 g/dL (1.3-4.6); Glucose 218 mg/dL (65-115); Magnesium 1.8 mg/dL (1.7-2.3); Osmolality Calculated 316 mOsm/kg (285-295); Potassium 4.0 mmol/L (3.5-5.1); Sodium 136 mmol/L (136-145); Total Protein 6.2 g/dL (6.6-8.7)
[2025-05-29 05:19] LABS: Procalcitonin 0.35 ng/mL (0-0.5)
[2025-05-29 05:22] LABS: Cholesterol 163 mg/dL (0-200); HDL Cholesterol 47 mg/dL (60-100); Triglycerides 94 mg/dL (0-150)
[2025-05-29 05:31] LABS: Blood Urea Nitrogen 88 mg/dL (8-23)
[2025-05-29] MEDS: methylPREDNISolone sod succ 40 mg/mL INJ 10 MG IVP ×2 (06:24→18:11)
--- NOTE | 2025-05-29 08:00 | MR_ITS ---
WS: [id number] MRI/MRCP OF THE ABDOMEN WITHOUT GADOLINIUM ENHANCEMENT TECHNIQUE: Coronal T2 Fase BH, Axial T2 Fase BH, Axial T2 FS BH, Zxial 3D Pham BH, Axial DWI BH, 2D MRCP Radial BH, 3D MRCP (Resp), and Axial 3D Dyn BH Post sequences. CLINICAL INFORMATION: Nausea, vomiting, dilated bile duct with cholelithiasis COMPARISON: None. FINDINGS: Limited examination due to patient motion and respiratory artifact. Gadolinium not administered. Diffuse intrahepatic biliary ductal dilatation with periportal edema. Findings suspicious for cholangitis. Recommend laboratory correlation. Hydropic gallbladder is unchanged since the prior CT. Cholelithiasis. Mild gallbladder wall edema. Diffuse dilatation of the common bile duct although no definite obstructing stones or calculi considering limitations. Diffuse wall thickening of the common bile duct suspicious for ascending cholangitis. Recommend further evaluation with ERCP. Pancreas is poorly evaluated due to respiratory artifact. Remainder of the lower abdominal contents are poorly evaluated and better seen on the recent CT Tiny bilateral pleural effusions. Atrophic kidneys bilaterally. Normal caliber upper abdominal aorta. Adrenal glands appear normal. MR/MR MRCP [id number] Impression: 1. Moderate intrahepatic biliary ductal dilatation with diffuse periportal emily ma. Dilatation of the common bile duct with bile duct wall thickening. Findings suspicious for ascending cholangitis. Recommend correlation with biliary funct ion studies 2. No visualized obstructing common bile duct calculi although the common bile duct wall appears thickened 3. Hydropic gallbladder with gallbladder wall edema similar to the prior CT wi th a few small gallbladder calculi. This may be due to primary or acute cholecy stitis versus reactive edema from cholangitis 4. Trace bilateral pleural effusions. 5. Atrophic kidneys. Notified Agustin Willis MD at 05/29/2025 11:59 AM.
[2025-05-29] MEDS: piperacillin-tazobactam 3.375 GM in sodium chloride 0.9% (plus) 50 ML IV ×2 (08:22→22:36)
[2025-05-29] MEDS: pantoprazole 40 mg SDV IVP ×2 (08:22→22:36)
--- NOTE | 2025-05-29 10:04 | P.CONIM_ITS ---
Providers/Reason For Consult 2 Consulting Physician/Specialty*: kommana/Nephrology Reason for Consult*: CKD 5 Attending Physician: Agustin Willis MD Primary Care Provider: Ale Olivier MD History of Present Illness History of Present Illness Yu Nunez is a 64 year old female Patient is a 64-year-old female with past medical history of pancreatic and kidney transplant about 23 years ago, hypertension followed by transplant center at , progressively worsening CKD in the last few years presented to the emergency department due to decreased appetite nausea vomiting. Patient was told that she will require dialysis soon by her transplant physicians recently. On presentation her creatinine is in the 6 range with a BUN of 96. Patient also complains of extreme fatigue. Review of Systems 2 Narrative: Negative Medications/Allergies Home Medications ?Medication ?Instructions ?Recorded ?Confirmed ?Last Taken ?Type ascorbic acid (vitamin C) 500 mg 500 mg PO BID@0700,17 30 09/13/20 05/28/25 05/26/25 07:00 History tablet (Vitamin C) aspirin 81 mg chewable tablet 81 mg PO DAILY@2100 12/0 03/2805/28/25 05/25/25 21:00 History fluticasone propionate 50 1 spray intranasal DAILY@210 0 09/13/20 05/28/25 01/03/22 History mcg/actuation nasal spray,suspension loperamide 2 mg capsule 2 mg PO TID PRN Diarrhea 03/2805/28/25 Unknown History magnesium oxide 400 mg (241.3 mg 400 mg PO DAILY@1430 09/13/20 05/28/25 05/26/25 08:00 History magnesium) tablet vitamin E acetate 134 mg (200 400 unit PO DAILY@0700 1 11/14/19 05/28/25 05/25/25 History unit) capsule carvedilol 12.5 mg tablet 12.5 mg PO BID #180 tabs 09/0205/28/25 05/26/25 07:00 Rx cholecalciferol (vitamin D3) 25 25 mcg PO DAILY 05/28/25 05/26/25 History mcg (1,000 unit) capsule (Vitamin D3) diphenhydramine HCl 25 mg tablet 25 mg PO TID PRN Laureano rgy Symptoms 05/28/25 05/28/25 05/25/25 History (Benadryl Allergy) losartan 50 mg tablet 100 mg PO DAILY 05/28/2505/25/25 History mycophenolate sodium 180 mg 180 mg PO QID 05/28/2505/26/25 08:00 History tablet,delayed release vitamins with calcium 27 tab PO DAILY 5 05/28/25 05/25/25 19:00 History no.72-iron 27 mg-folic acid 1 mg tablet ( Vitamins Plus Low Iron) tacrolimus 0.5 mg capsule, See Rx Instructions .Route .COMPLEX 05/28/25 05/28/25 05/26/25 09:00 History immediate-release Allergies Allergy/AdvReac Type Severity Reaction Status Date / Time amlodipine Allergy Unknown Verified 05/28/25 15:55 codeine Allergy ADR-Halluci Verified 04/15/25 14:55 nating nifedipine Allergy ALGY-Swell Verified 05/29/25 20:23 Lip/Tongue/Throat povidone-iodine (From Allergy ADR-Itching Verified 04/15/25 14:55 Betadine) simvastatin Allergy Unknown Verified 05/28/25 15:55 trazodone Allergy ADR-Vomitin Verified 04/15/25 14:55 g Current Medications Generic Name Dose Route Start Last Admin Trade Name [place] PRN Reason Stop Dose Admin Acetaminophen 650 mg 05/28/25 20:52 05/29/25 18:12 Acetaminophen 325 Mg Tablet PO 650 mg Q6H PRN Administration Mild/Mod Pain Or Temp >/= 101 Aspirin 81 mg 05/28/25 21:00 05/28/25 22:08 Aspirin 81 Mg Chew Tablet PO 81 mg DAILY@2100 RENETTA Administration Carvedilol 12.5 mg 05/28/25 20:52 05/29/25 18:10 Carvedilol 12.5 Mg Tablet PO 12.5 mg BID RENETTA Administration Docusate Sodium 100 mg 05/29/25 09:00 05/29/25 18:11 Docusate Sodium 100 Mg Capsule PO Not Given BID [facility] Heparin Sodium (Porcine) 5,000 unit 05/28/25 20:52 05/29/25 11:30 Heparin 5,000 Unit/Ml Inj 1 Ml SUBCUT Not Given On Hold: 05/29/25 09:00 Q12H [facility] Hydralazine HCl 10 mg 05/28/25 18:39 05/29/25 18:21 Hydralazine 20 Mg/Ml Inj 1 Ml IVP 10 mg Q4H PRN Administration SBP More than 160 mmhg Nicardipine/Sodium Chloride 20 mg in 200 mls @ 0 mls/hr 05/28/25 15:45 05/29/25 16:20 Cardene IV 0 mg/hr .Q0M RENETTA 0 mls/hr Protocol Titration Per Protocol Sodium Bicarbonate 150 meq/ 1,150 mls @ 75 mls/hr 05/28/25 18:15 05/29/25 12:38 Dextrose IV 75 mls/hr .[id number] RENETTA Administration Piperacillin Sod/Tazobactam 50 mls @ 12.5 mls/hr 05/29/25 08:00 05/29/25 12:33 Sod 3.375 gm/ Sodium Chloride IV Infused Q12H RENETTA Infusion Methylprednisolone Sodium Succinate 10 mg 05/28/25 18:45 05/29/25 18:11 Methylprednisolone Sod Succ 40 Mg/Ml Inj IVP 10 mg Q12H RENETTA Administration Non-Formulary Medication 180 mg 05/29/25 13:00 05/29/25 18:10 Mycophenolate Sodium PO 180 mg QID RENETTA Administration Pantoprazole Sodium 40 mg 05/28/25 20:52 05/29/25 08:22 Pantoprazole 40 Mg Sdv IVP 40 mg Q12H RENETTA Administration Scopolamine 1 patch 05/28/25 18:45 05/28/25 20:10 Scopolamine 1 Mg Patch TRANSDERMA 1 patch Q3D RENETTA Administration PFSH Acute 2 PFSH: Medical History (Updated 05/29/25 @ 21:42 by Margarita Morrell MD) Immunosuppressed status Moderate aortic valve stenosis Hepatitis C Post hysterectomy menopause Surgical History Transplant Arteriovenous fistula removed Renal transplant recipient Social History Smoking and tobacco/nicotine status: current every day tobacco/nicotine user Alcohol intake: never Substance/Drug Use: never Vitals/I&O/Wt Last Vital Signs Temp 98.7 F 05/29/25 20:00 Pulse 78 05/29/25 20:00 Resp 18 05/29/25 19:15 BP 167/86 05/29/25 20:00 Pulse Ox 100 05/29/25 20:00 O2 Del Method Room Air 05/29/25 19:00 05/29/25 05/29/25 05/29/25 06:59 14:59 22:59 Intake Total 224.5 / 9351.164 8729.5 / 1255.5 1211.667 / 2467.167 Output Total 550 / 550 305 / 305 Balance -325.5 / 497.011 9376.5 / 1255.5 906.667 / 2162.167 Weight last 48 hrs Weight 48 kg Weight 48 kg Weight 47.174 kg Physical Exam 2 Narrative: Patient is awake alert, no distress, on room air No JVD PERRLA S1-S2 regular rate and rhythm Lungs with decreased breath sounds bilaterally Abdomen soft nontender Extremities no pedal edema Skin no rash Urinary Catheter Management: Hackett: Cath Placed During This Visit: yes Reason for Continuing Indwelling Catheter: Accurate Measurement of Urinary Output in Critically Ill Patients Urinary Catheter Date of Insertion: 05/28/25 Urinary Catheter Time of Insertion: 21:10 Data 05/29/25 04:11 05/29/25 04:11 Micro: Microbiology 05/28/25 18:54 Blood Culture - Preliminary Blood NEGATIVE TO DATE 05/28/25 18:52 Blood Culture - Preliminary Blood NEGATIVE TO DATE 05/28/25 21:16 Urine Culture - Preliminary Urine,Clean Catch Gram Negative Rods 05/28/25 21:16 Bacterial Antigens - Final Urine Kidney 05/28/25 21:16 Legionella Urinary Antigen - Final Unknown Source A&P Assessment and plan 1. ESRD (end stage renal disease): Plan: 1. CKD stage V progressed to ESRD: Patient is failed renal transplant , Now has uremic symptoms including severe fatigue, nausea vomiting and poor appetite. - Plan for tunneled catheter placement and HD initiation, patient agrees -HD #1 today, low BFR to prevent dialysis disequilibrium 2. Metabolic acidosis, in the setting of advanced CKD, should improve after HD initiation 3. Hypertension: Blood pressure poorly controlled, reevaluate after hemodialysis ,on Cardene drip and titrating oral meds 4. Anemia: Hemoglobin 10.5, monitor 5. Status post renal transplant, currently on mycophenolate, tacrolimus and prednisone. - Will continue mycophenolate and tacrolimus, on IV Solu-Medrol which will be switched to prednisone once p.o. intake improved - Need to taper immunosuppression slowly as outpatient to prevent acute transplant rejection Patient evaluated using audiovisual cart. Time spent 40 minutes. PDMP PDMP Reviewed: Not Reviewed Consult Attestations 2 Medical Necessity Statement: per mediciene Coding Level of Care Code Acute Code for Chg Fwd Diagnoses ESRD (end stage renal disease) N18.6
--- NOTE | 2025-05-29 11:16 | PC.NURSE ---
Pt to MRI and back to ICU . Tolerated well.
--- NOTE | 2025-05-29 11:23 | P.PN_ITS ---
Subjective 2 Subjective: No acute events overnight No abdominal pain Vitals/I&O/Wt Last Vital Signs Temp 98.8 F 05/29/25 05:00 Pulse 80 05/29/25 06:15 Resp 16 05/28/25 14:00 BP 146/69 05/29/25 06:15 Pulse Ox 96 05/29/25 06:15 O2 Del Method Room Air 05/28/25 20:53 05/28/25 05/29/25 05/29/25 22:59 06:59 14:59 Intake Total 1200.000 / 1200.000 224.5 / 1424.500 Output Total 550 / 550 Balance 1200.000 / 1200.000 -325.5 / 874.500 Weight last 48 hrs Weight 105 lb 13.15 oz Weight 105 lb 13.15 oz Weight 104 lb Physical Exam 2 Narrative: Chest: Unlabored breathing room air. No lymphadenopathy. Heart: Regular rate and rhythm. Abdomen: Soft, nontender, nondistended. No masses or lymphadenopathy. Urinary Catheter Management: Hackett: Cath Placed During This Visit: yes Reason for Continuing Indwelling Catheter: Accurate Measurement of Urinary Output in Critically Ill Patients Urinary Catheter Date of Insertion: 05/28/25 Urinary Catheter Time of Insertion: 21:10 Data 05/29/25 04:11 05/29/25 04:11 Micro: Microbiology 05/28/25 21:16 Bacterial Antigens - Final Urine Kidney 05/28/25 21:16 Legionella Urinary Antigen - Final Unknown Source 05/28/25 18:54 Blood Culture - Preliminary Blood SPECIMEN COLLECTED 05/28/25 18:52 Blood Culture - Preliminary Blood SPECIMEN COLLECTED A&P Assessment and plan 1. Renal failure: Plan: 64-year-old female who presented in renal failure. Status post kidney pancreas transplant. On immunosuppression. Medicine perform an MRCP and read mentioning acute cholangitis. Patient is asymptomatic. She is immunosuppressed. LFTs are within normal limits. Recommend 5 days of IV antibiotics. I have a low suspicion for cholangitis. I have explained the risks and benefits admitted agrees to proceed with tunnel dialysis catheter placement. She understands there is a risk of massive bleeding and possibly . She still decides to proceed. PDMP PDMP Reviewed: Not Reviewed Attestations 2 Medical Necessity Statement*: N/A Coding Level of Care Code 54274 Diagnoses Renal failure N19
[2025-05-29] MEDS: hyDRALAzine 20 mg/mL INJ 1 mL 10 MG IVP ×3 (11:36→23:04)
[2025-05-29] MEDS: NON-FORMULARY MEDICATION (Mycophenolate Sodium 180 mg tablet,delayed release (DR/EC)) 180 EACH PO ×2 (12:37→18:10)
--- NOTE | 2025-05-29 13:35 | ANES.PREANE2 ---
Pre-Anesthetic Assessment Height/Weight: Height 1.57 m Weight 48 kg Temp Pulse Resp BP Pulse Ox O2 Del Method 98.8 F 76 14 146/69 98 Room Air 05/29/25 05:00 05/29/25 11:32 05/29/25 11:32 05/29/25 06:15 05/29/25 11:32 05/29/25 11:32 Operation Date: 05/29/25 14:20 Proposed Procedures p Insertion Central Venous Access Device Dialysis Catheter Insertion(Right) - Franklin Gore MD Familial anesthetic complications: on the table during her transplant operation Was Beta Dominique taken within 24 hours: N/A Was Clonidine taken within 24 hours: N/A Last intake: > 8 hrs, denies any active nausea at time of interview, hasn't vomited since yesterday Social Tobacco and No alcohol Exam alert, oriented x 3, clear to auscultation bilaterally and regular rate & rhythm Airway Mallampati: Class I CV/HEM Hypertension Chronic Renal Insufficiency Metabolic Diabetes Mellitus Anesthetic Plan ASA status: 4 Anesthesia: Choice Risk of > 500 ml blood loss (7ml/kg in children): No Medications/Allergies Home Medications ?Medication ?Instructions ?Recorded ?Confirmed ?Last Taken ?Type ascorbic acid (vitamin C) 500 mg 500 mg PO BID@0700,1730 09/13/20 05/28/25 05/26/25 07:00 History tablet (Vitamin C) aspirin 81 mg chewable tablet 81 mg PO DAILY@209909/13/20 05/28/25 05/25/25 21:00 History fluticasone propionate 50 1 spray intranasal DAILY@209909/13/20 05/28/25 01/03/22 History mcg/actuation nasal spray,suspension loperamide 2 mg capsule 2 mg PO TID PRN Diarrhea 09/13/20 05/28/25 Unknown History magnesium oxide 400 mg (241.3 mg 400 mg PO DAILY@1430 09/13/20 05/28/25 05/26/25 08:00 History magnesium) tablet vitamin E acetate 134 mg (200 400 unit PO DAILY@0700 09/13/20 05/28/25 05/25/25 History unit) capsule carvedilol 12.5 mg tablet 12.5 mg PO BID #180 tabs 04/18/25 05/28/25 05/26/25 07:00 Rx cholecalciferol (vitamin D3) 25 25 mcg PO DAILY 05/28/25 05/28/25 05/26/25 History mcg (1,000 unit) capsule (Vitamin D3) diphenhydramine HCl 25 mg tablet 25 mg PO TID PRN Allergy Symptoms 05/28/25 05/28/25 05/25/25 History (Benadryl Allergy) losartan 50 mg tablet 100 mg PO DAILY 05/28/25 05/28/25 05/25/25 History mycophenolate sodium 180 mg 180 mg PO QID 05/28/25 05/28/25 05/26/25 08:00 History tablet,delayed release vitamins with calcium 27 tab PO DAILY 05/28/25 05/28/25 05/25/25 19:00 History no.72-iron 27 mg-folic acid 1 mg tablet ( Vitamins Plus Low Iron) tacrolimus 0.5 mg capsule, See Rx Instructions .Route .COMPLEX 05/28/25 05/28/25 05/26/25 09:00 History immediate-release Allergies Allergy/AdvReac Type Severity Reaction Status Date / Time amlodipine Allergy Unknown Verified 05/28/25 15:55 codeine Allergy ADR-Halluci Verified 04/15/25 14:55 nating povidone-iodine (From Allergy ADR-Itching Verified 04/15/25 14:55 Betadine) simvastatin Allergy Unknown Verified 05/28/25 15:55 trazodone Allergy ADR-Vomitin Verified 04/15/25 14:55 g Current Medications Generic Name Dose Route Start Last Admin Trade Name Freq PRN Reason Stop Dose Admin Aspirin 81 mg 05/28/25 21:00 05/28/25 22:08 Aspirin 81 Mg Chew Tablet PO 81 mg DAILY@2100 RENETTA Administration Carvedilol 12.5 mg 05/28/25 20:52 05/29/25 08:22 Carvedilol 12.5 Mg Tablet PO 12.5 mg BID RENETTA Administration Docusate Sodium 100 mg 05/29/25 09:00 05/29/25 08:32 Docusate Sodium 100 Mg Capsule PO Not Given BID [facility] Heparin Sodium (Porcine) 5,000 unit 05/28/25 20:52 05/29/25 11:30 Heparin 5,000 Unit/Ml Inj 1 Ml SUBCUT Not Given On Hold: 05/29/25 09:00 Q12H RENETTA Hydralazine HCl 10 mg 05/28/25 18:39 05/29/25 11:36 Hydralazine 20 Mg/Ml Inj 1 Ml IVP 10 mg Q4H PRN Administration SBP More than 160 mmhg Nicardipine/Sodium Chloride 20 mg in 200 mls @ 0 mls/hr 05/28/25 15:45 05/29/25 01:30 Cardene IV 0 mg/hr .Q0M RENETTA 0 mls/hr Protocol Titration Per Protocol Sodium Bicarbonate 150 meq/ 1,150 mls @ 75 mls/hr 05/28/25 18:15 05/29/25 12:38 Dextrose IV 75 mls/hr .[id number] RENETTA Administration Piperacillin Sod/Tazobactam 50 mls @ 12.5 mls/hr 05/29/25 08:00 05/29/25 12:33 Sod 3.375 gm/ Sodium Chloride IV Infused Q12H RENETTA Infusion Methylprednisolone Sodium Succinate 10 mg 05/28/25 18:45 05/29/25 06:24 Methylprednisolone Sod Succ 40 Mg/Ml Inj IVP 10 mg Q12H RENETTA Administration Non-Formulary Medication 180 mg 05/29/25 13:00 05/29/25 12:37 Mycophenolate Sodium PO 180 mg QID RENETTA Administration Pantoprazole Sodium 40 mg 05/28/25 20:52 05/29/25 08:22 Pantoprazole 40 Mg Sdv IVP 40 mg Q12H RENETTA Administration Scopolamine 1 patch 05/28/25 18:45 05/28/25 20:10 Scopolamine 1 Mg Patch TRANSDERMA 1 patch Q3D RENETTA Administration PFSH Anesthesia Medical History (Updated 05/28/25 @ 18:57 by Agustin Willis MD) Hepatitis C Post hysterectomy menopause Surgical History Transplant Arteriovenous fistula removed Renal transplant recipient Social History Smoking and tobacco/nicotine status: current every day tobacco/nicotine user Alcohol intake: never Substance/Drug Use: never Data Anesthesia 05/29/25 04:11 05/29/25 04:11 Short CBC 05/28/25 05/29/25 Range/Units 13:50 04:11 WBC 16.53 H 10.82 (3.29-11.43) 10^3/uL Hgb 10.50 L 8.00 L (11.27-16.99) g/dL Hct 32.6 L 24.1 L (36-47) % MCV 95.3 90.9 (85-98) fl Plt Count 253 201 (157-399) 10^3/cmm Neut % (Auto) 93.5 93.6 % Neut # (Auto) 15.46 H 10.13 H (1.8-7.7) 10^3/uL BMP 05/28/25 05/29/25 13:50 04:11 Sodium 136 136 Potassium 4.4 4.0 Chloride 101 103 Carbon Dioxide 13 L 16 L BUN 96 H* 88 H* Creatinine 6.2 H* 6.4 H* Glucose 183 H 218 H Calcium 8.7 7.8 L Liver Function 05/28/25 05/29/25 Range/Units 13:50 04:11 Total Bilirubin 0.5 0.3 (0.15-1.2) mg/dL AST 25 23 (0-32) U/L ALT 19 17 (0-33) U/L Alkaline Phosphatase 93 72 (35-105) U/L Albumin 4.3 3.6 (3.5-5.2) g/dL Urine 05/28/25 05/28/25 05/28/25 Range/Units 21:16 21:16 21:16 Urine Color Cancelled Yellow Urine Appearance Cancelled Cloudy A Urine pH Cancelled Ur Specific [place] Urine Protein Urine Glucose (UA) Urine Ketones Urine Nitrate Urine Bilirubin Ur Leukocyte Esterase Urine RBC Urine WBC Ur Renal Epithelial Cell 05/28/25 05/28/25 05/28/25 Range/Units 21:16 21:16 21:16 Urine Color Urine Appearance Urine pH 6.0 Ur Specific [place] Cancelled 1.018 Urine Protein Cancelled 4+ A Urine Glucose (UA) Cancelled Urine Ketones Urine Nitrate Urine Bilirubin Ur Leukocyte Esterase Urine RBC Urine WBC Ur Renal Epithelial Cell 05/28/25 05/28/25 05/28/25 Range/Units 21:16 21:16 21:16 Urine Color Urine Appearance Urine pH Ur Specific [place] Urine Protein Urine Glucose (UA) Negative Urine Ketones Cancelled Negative Urine Nitrate Cancelled Negative Urine Bilirubin Cancelled Ur Leukocyte Esterase Urine RBC Urine WBC Ur Renal Epithelial Cell 05/28/25 05/28/25 05/28/25 Range/Units 21:16 21:16 21:16 Urine Color Urine Appearance Urine pH Ur Specific [place] Urine Protein Urine Glucose (UA) Urine Ketones Urine Nitrate Urine Bilirubin Negative Ur Leukocyte Esterase Cancelled Trace A Urine RBC Cancelled 6-10 Urine WBC Cancelled Ur Renal Epithelial Cell 05/28/25 Range/Units 21:16 Urine Color Urine Appearance Urine pH Ur Specific [place] Urine Protein Urine Glucose (UA) Urine Ketones Urine Nitrate Urine Bilirubin Ur Leukocyte Esterase Urine RBC Urine WBC 21-50 H Ur Renal Epithelial Cell Cancelled ABG 05/28/25 18:19 Specimen Type Arterial Sample Site Radial, left ABG pH 7.38 ABG pCO2 25.3 L ABG pO2 88.4 ABG PO2/FiO2 Ratio 420 ABG HCO3 14.8 L ABG O2 Saturation 97.4 ABG Base Excess -9.1 L A-a O2 Gradient 3.6 L O2 Delivery Device room air FiO2 21.0 Microbiology 05/28/25 21:16 Bacterial Antigens - Final Urine Kidney 05/28/25 21:16 Legionella Urinary Antigen - Final Unknown Source 05/28/25 18:54 Blood Culture - Preliminary Blood SPECIMEN COLLECTED 05/28/25 18:52 Blood Culture - Preliminary Blood SPECIMEN COLLECTED Cardiac Studies: Echocardiogram 05/28/25
[2025-05-29 13:39] LABS: Hepatitis B Surface Antigen Non-Reactive (Nonreactive)
--- NOTE | 2025-05-29 13:44 | SC_ITS ---
WS: [id number] C-ARM RADIOGRAPHS CHEST; 3 IMAGES HISTORY: OR PICS COMPARISON: None available. Intraoperative imaging during RIGHT IJ dialysis catheter placement. SC/C-arm FL for CVA [id number] IMPRESSION: Intraoperative imaging for RIGHT IJ dialysis catheter placement.
[2025-05-29] MEDS: nicardipine 20 MG/200 ML PREMIX 25 MG IV (13:52)
--- NOTE | 2025-05-29 14:44 | P.PN_ITS ---
Subjective 2 Subjective: No acute events overnight No abdominal pain Vitals/I&O/Wt Last Vital Signs Temp 98.8 F 05/29/25 05:00 Pulse 76 05/29/25 11:32 Resp 14 05/29/25 11:32 BP 146/69 05/29/25 06:15 Pulse Ox 98 05/29/25 11:32 O2 Del Method Room Air 05/29/25 11:32 05/28/25 05/29/25 05/29/25 22:59 06:59 14:59 Intake Total 1200.000 / 1200.000 224.5 / 7888.802 4791.5 / 1255.5 Output Total 550 / 550 Balance 1200.000 / 1200.000 -325.5 / 758.851 0387.5 / 1255.5 Weight last 48 hrs Weight 48 kg Weight 48 kg Weight 47.174 kg Physical Exam 2 Narrative: General: In distress because of nausea, AO x 3, HEENT: PERRLA, pupils bilaterally equal and reactive Chest: Normal vesicular breath sounds, no added sounds, equal good air entry bilaterally CVS: S1-S2 regular, no murmurs, no tachycardia, no gallops, no rubs Abdomen: Soft, nontender, no organomegaly, bowel sounds present Neuro: No focal deficits, no facial deformity, AO x3, power 5/5 in all limbs Urinary Catheter Management: Hackett: Cath Placed During This Visit: yes Reason for Continuing Indwelling Catheter: Accurate Measurement of Urinary Output in Critically Ill Patients Urinary Catheter Date of Insertion: 05/28/25 Urinary Catheter Time of Insertion: 21:10 Data 05/29/25 04:11 05/29/25 04:11 Micro: Microbiology 05/28/25 21:16 Bacterial Antigens - Final Urine Kidney 05/28/25 21:16 Legionella Urinary Antigen - Final Unknown Source 05/28/25 18:54 Blood Culture - Preliminary Blood SPECIMEN COLLECTED 05/28/25 18:52 Blood Culture - Preliminary Blood SPECIMEN COLLECTED A&P Assessment and plan 1. Acute kidney injury superimposed on CKD: Failure of renal transplant. Associated with anion gap acidosis along with uremia. Anion gap acidosis improving. Continue with bicarb drip at 75 cc/h. Consult nephrology. Plan for tunnel catheter later in the day and possible initiation of dialysis. Appreciate urine lites, urine creatinine, urine eosinophils. Hepatitis panel. Will request case management to work on outpatient dialysis chair time. 2. Accelerated hypertension: Goal blood pressure less than 140/90 mmHg. Patient takes Coreg 12.5 mg twice daily along with losartan at home. Not able to maintain oral medications. Nicardipine drip weaned off. Patient able to take oral medications orally. Continue with home dose of Coreg for now. Uptitrate as per goal blood pressure. Holding off on losartan for now. Echocardiogram done shows an EF of 60% with grade 1 diastolic dysfunction, moderate aortic valve stenosis with mean gradient of 8.3 across the valve with RVSP of 38 mmHg consistent with mild pulmonary tension. 3. Acute cholangitis: CT on pelvis done on admission consistent with intra and extrahepatic ductal dilatation with cholelithiasis and dilated gallbladder. Confirmed on MRCP. MRCP concerning for possible acute ascending cholangitis with possibility of cholecystitis though cholecystitis could be just inflammation from cholangitis. Confirmed with radiology. Patient's leukocytosis resolving Liver function within normal limits. Nausea resolving. Most likely patient has mild cholangitis. Discussed in detail with surgical team. As per surgical team no need for ERCP or biliary drain for now. Patient clinically improving. Patient is immunocompromised. Follow-up with blood cultures. Continue with IV Zosyn for now. 4. Nausea and vomiting: Most likely in setting of uremia. Cannot rule out in setting of acute cholangitis. Seen on MRCP. Lipase within normal limits. LFTs within normal limits. Zofran as needed, scopolamine patch. IV Protonix 40 mg twice daily. Clear liquid diet for now. 5. Renal transplant recipient: Discussion between ER physician and transplant team at . Continue with home dose of mycophenolate. Start on IV Solu-Medrol 10 mg twice daily. Will switch to tacrolimus once patient is able to maintain oral intake. Check tacro level. Does have an old fistula. 6. Moderate aortic valve stenosis: 7. Immunosuppressed status: 8. Uremia: BUN worsening to 96. Creatinine up to 6.2. Continue to monitor daily. 9. High anion gap metabolic acidosis: 10. Pancreas transplanted: CT on close as above. Lipase within normal limits. Plan: Full code Clear liquid diet Protonix for PUD prophylaxis Heparin 5000 every 12 hourly for DVT prophylaxis PDMP PDMP Reviewed: Not Reviewed Attestations 2 Medical Necessity Statement*: Requires further hospitalization for management of acute mild cholangitis, nausea and vomiting in setting of uremia due to BRYNN on CKD while dialysis was initiated in a patient with failed renal transplant, pancreatic transplant, immunocompromised Diagnoses Acute kidney injury superimposed on CKD N17.9; N18.9 Accelerated hypertension I10 Acute cholangitis K83.09 Nausea and vomiting R11.2 Renal transplant recipient Z94.0 Moderate aortic valve stenosis I35.0 Immunosuppressed status D84.9 Uremia N19 High anion gap metabolic acidosis E87.29 Pancreas transplanted Z94.83
[2025-05-29] MEDS: lidocaine-epi 1% 20 mL INJ 10 ML INJECTION (15:58)
[2025-05-29] MEDS: heparin, porcine 1,000 unit/mL INJ 10 mL 10000 UNIT IRRIGATION (15:59)
[2025-05-29] MEDS: BUPivacaine 0.25% INJ 10 mL INJECTION (16:00)
--- NOTE | 2025-05-29 19:22 | PC.NURSE ---
Shift summary: Pt rested in bed throughout the shift. She was NPO most of the shift until the permanent tunneled HD cath inserted. She did report some right neck discomfort this evening. Acetaminophen admin and per pt helped. Sinus rhythm noted on monitor. IVF with Bicarb infusing. Cardene gtt off at beginning of shift. Her BP crept up . Hydralazine admin x1 this am. Bp improved for a short while ten started creeping back up. Cardene restarted at low dose, 2.5 mg/hr. SBP then maintained less than 160. Cardene off when she returned from OR. Bp started climbing again this evening. Scheduled Coreg admin, Bp monitored. SBP 180, Hydralazine PRn admin x 1 this evening. BP improved. Dailysis has just started. Pt started on clear liquid diet, she relished the full tray. 300ml of pale yellow urine noted.
--- NOTE | 2025-05-29 21:22 | PC.NURSE ---
Patient currently receiving hemodialysis. 2100 medications being held til after dialysis complete due to not being compatible with dialysis.
[2025-05-30] VITALS (92 sets, daily range): BP systolic 135–195; BP diastolic 63–109; PULSE 65–79; RESP 16–20; TEMP 36.4–37.2; O2SAT 98–100
--- NOTE | 2025-05-30 03:57 | PC.NURSE ---
Provider notified of patients increase in blood pressure despite scheduled PO meds and PRN IVP meds. Gave orders for 10mg PO Hydralazine q6h. Order placed.
[2025-05-30 04:06] LABS: Hematocrit 22.1 % (36-47); Hemoglobin 7.20 g/dL (11.27-16.99); Mean Corpuscular HGB Conc 32.6 g/dL (30-55); Mean Corpuscular Hemoglobin 29.4 pg (27-33); Mean Corpuscular Volume 90.2 fl (85-98); Nucleated Red Blood Cells % 0 %; Platelet Count 185 10^3/cmm (157-399); Red Blood Count 2.45 10^6/uL (3.85-5.65); White Blood Count 12.05 10^3/uL (3.29-11.43)
[2025-05-30 04:31] LABS: Alanine Aminotransferase 17 U/L (0-33); Albumin Level 3.2 g/dL (3.5-5.2); Alkaline Phosphatase 61 U/L (35-105); Anion Gap 15.6 (5-19); Aspartate Amino Transferase 24 U/L (0-32); Blood Urea Nitrogen 53 mg/dL (8-23); Calcium 7.6 mg/dL (8.5-10.5); Carbon Dioxide 26 mmol/L (22-29); Chloride 100 mmol/L (98-107); Creatinine Clr Calc Pharmacy 9.9104; Globulin 2.4 g/dL (1.3-4.6); Glucose 163 mg/dL (65-115); Magnesium 1.7 mg/dL (1.7-2.3); Osmolality Calculated 304 mOsm/kg (285-295); Potassium 3.6 mmol/L (3.5-5.1); Sodium 138 mmol/L (136-145); Total Protein 5.6 g/dL (6.6-8.7)
[2025-05-30] MEDS: hyDRALAzine 20 mg/mL INJ 1 mL 10 MG IVP ×3 (06:05→22:00)
[2025-05-30] MEDS: morphine 4 mg/mL SDV 1 mL 2 MG IVP (06:06)
[2025-05-30] MEDS: piperacillin-tazobactam 3.375 GM in sodium chloride 0.9% (plus) 50 ML IV ×2 (07:52→20:05)
[2025-05-30] MEDS: methylPREDNISolone sod succ 40 mg/mL INJ 10 MG IVP ×2 (07:54→18:24)
[2025-05-30] MEDS: pantoprazole 40 mg SDV IVP ×2 (08:44→20:07)
[2025-05-30] MEDS: MYCOPHENOLATE SODIUM 180 MG 180 EACH PO ×3 (08:58→20:09)
--- NOTE | 2025-05-30 11:11 | P.PN_ITS ---
Subjective 2 Subjective: Tunneled dialysis catheter functional No abdominal pain Vitals/I&O/Wt Last Vital Signs Temp 98.9 F 05/30/25 07:30 Pulse 69 05/30/25 10:52 Resp 16 05/30/25 07:30 BP 174/87 05/30/25 10:52 Pulse Ox 100 05/30/25 09:30 O2 Del Method Room Air 05/30/25 07:30 05/29/25 05/30/25 05/30/25 22:59 06:59 14:59 Intake Total 1711.667 / 2967.167 1400 / 4367.167 605 / 605 Output Total 2805 / 2805 150 / 150 Balance -1093.333 / 827.626 8741 / 1562.167 455 / 455 Weight last 48 hrs Weight 105 lb 13.15 oz Weight 104 lb 11.513 oz Weight 105 lb 13.15 oz Weight 105 lb 13.15 oz Weight 104 lb Physical Exam 2 Narrative: Chest: Unlabored breathing room air. Tunneled dialysis catheter on right chest working. Heart: Regular rate and rhythm. Abdomen: Soft, nontender, nondistended. Urinary Catheter Management: Hackett: Cath Placed During This Visit: yes Reason for Continuing Indwelling Catheter: Accurate Measurement of Urinary Output in Critically Ill Patients Urinary Catheter Date of Insertion: 05/28/25 Urinary Catheter Time of Insertion: 21:10 Data 05/30/25 13:15 05/30/25 03:46 Micro: Microbiology 05/28/25 18:54 Blood Culture - Preliminary Blood NEGATIVE TO DATE 05/28/25 18:52 Blood Culture - Preliminary Blood NEGATIVE TO DATE 05/28/25 21:16 Urine Culture - Preliminary Urine,Clean Catch Gram Negative Rods 05/28/25 21:16 Bacterial Antigens - Final Urine Kidney A&P Assessment and plan 1. Renal failure: Plan: 64-year-old female who presented for renal failure. Tunneled dialysis catheter placed and functional. No abdominal pain. Finish 5 days of antibiotics for possible cholangitis although low suspicion for it. PDMP PDMP Reviewed: Not Reviewed Attestations 2 Medical Necessity Statement*: N/A Coding Level of Care Code 28066 Diagnoses Renal failure N19
--- NOTE | 2025-05-30 12:30 | PC.SOCIAL ---
IMM Update pg 2 of IMM Updated and reviewed w/ patient. Copy provided and copy dated, initialed and placed in chart.
--- NOTE | 2025-05-30 13:02 | PM.PN ---
Subjective Subjective: no new c/o Medications: Reviewed: Yes Vitals/I&O/Wt Last Vital Signs Temp 98.1 F 05/30/25 12:15 Pulse 70 05/30/25 12:30 Resp 16 05/30/25 07:30 BP 182/98 05/30/25 12:30 Pulse Ox 100 05/30/25 12:30 O2 Del Method Room Air 05/30/25 12:15 05/29/25 05/30/25 05/30/25 22:59 06:59 14:59 Intake Total 1711.667 / 2967.167 1400 / 4367.167 605 / 605 Output Total 2805 / 2805 150 / 150 Balance -1093.333 / 557.675 6640 / 1562.167 455 / 455 Weight last 48 hrs Weight 48 kg Weight 47.5 kg Weight 48 kg Weight 48 kg Weight 47.174 kg Physical Exam Narrative: Patient is awake alert, no distress, on room air No JVD PERRLA S1-S2 regular rate and rhythm Lungs with decreased breath sounds bilaterally Abdomen soft nontender Extremities no pedal edema Skin no rash Urinary Catheter Management: Hackett: Cath Placed During This Visit: yes Reason for Continuing Indwelling Catheter: Accurate Measurement of Urinary Output in Critically Ill Patients Urinary Catheter Date of Insertion: 05/28/25 Urinary Catheter Time of Insertion: 21:10 Data 05/30/25 03:46 05/30/25 03:46 Micro: Microbiology 05/28/25 18:54 Blood Culture - Preliminary Blood NEGATIVE TO DATE 05/28/25 18:52 Blood Culture - Preliminary Blood NEGATIVE TO DATE 05/28/25 21:16 Urine Culture - Preliminary Urine,Clean Catch Gram Negative Rods 05/28/25 21:16 Bacterial Antigens - Final Urine Kidney A&P Assessment and plan 1. ESRD (end stage renal disease): Plan: 1. CKD stage V progressed to ESRD: Patient is failed renal transplant , Now has uremic symptoms including severe fatigue, nausea vomiting and poor appetite. - Plan for tunneled catheter placement and HD initiation, patient agrees -HD X 2 sessions , , low BFR to prevent dialysis disequilibrium - Next hD monday 2. Metabolic acidosis, in the setting of advanced CKD, should improve after HD initiation 3. Hypertension: Blood pressure poorly controlled, reevaluate after hemodialysis ,was on nitro drip , titrating oral meds 4. Anemia: Hemoglobin 10.5, monitor 5. Status post renal transplant, currently on mycophenolate, tacrolimus and prednisone. - Will continue mycophenolate and tacrolimus, on IV Solu-Medrol which will be switched to prednisone once p.o. intake improved - Need to taper immunosuppression slowly as outpatient to prevent acute transplant rejection Patient evaluated using audiovisual cart. Time spent 40 minutes. PDMP PDMP Reviewed: Not Reviewed Attestations Medical Necessity Statement*: per [facility] Coding Level of Care Code Acute Code for Chg Fwd Diagnoses ESRD (end stage renal disease) N18.6
[2025-05-30 13:45] LABS: Hematocrit 28.4 % (36-47); Hemoglobin 9.00 g/dL (11.27-16.99)
--- NOTE | 2025-05-30 14:04 | P.PN_ITS ---
Subjective 2 Subjective: No acute events overnight. Patient states she is feeling a lot better. Seen with caregiver at bedside. Denies any nausea, vomiting, headache. Blood pressure is elevated. Vitals/I&O/Wt Last Vital Signs Temp 98.1 F 05/30/25 12:15 Pulse 70 05/30/25 12:30 Resp 16 05/30/25 07:30 BP 182/98 05/30/25 12:30 Pulse Ox 100 05/30/25 12:30 O2 Del Method Room Air 05/30/25 12:15 05/29/25 05/30/25 05/30/25 22:59 06:59 14:59 Intake Total 1711.667 / 2967.167 1400 / 4367.167 1150 / 1150 Output Total 2805 / 2805 150 / 150 Balance -1093.333 / 786.514 9457 / 2796.566 3299 / 1000 Weight last 48 hrs Weight 48 kg Weight 47.5 kg Weight 48 kg Weight 48 kg Physical Exam 2 Narrative: General: In distress because of nausea, AO x 3, HEENT: PERRLA, pupils bilaterally equal and reactive Chest: Normal vesicular breath sounds, no added sounds, equal good air entry bilaterally CVS: S1-S2 regular, no murmurs, no tachycardia, no gallops, no rubs Abdomen: Soft, nontender, no organomegaly, bowel sounds present Neuro: No focal deficits, no facial deformity, AO x3, power 5/5 in all limbs Urinary Catheter Management: Hackett: Cath Placed During This Visit: yes Reason for Continuing Indwelling Catheter: Accurate Measurement of Urinary Output in Critically Ill Patients Urinary Catheter Date of Insertion: 05/28/25 Urinary Catheter Time of Insertion: 21:10 Data 05/30/25 13:15 05/30/25 03:46 Micro: Microbiology 05/28/25 18:54 Blood Culture - Preliminary Blood NEGATIVE TO DATE 05/28/25 18:52 Blood Culture - Preliminary Blood NEGATIVE TO DATE 05/28/25 21:16 Urine Culture - Preliminary Urine,Clean Catch Gram Negative Rods 05/28/25 21:16 Bacterial Antigens - Final Urine Kidney A&P Assessment and plan 1. Acute kidney injury superimposed on CKD: Failure of renal transplant. Associated with anion gap acidosis along with uremia. Anion gap acidosis improving. Continue with bicarb drip at 75 cc/h. Consult nephrology. Plan for tunnel catheter later in the day and possible initiation of dialysis. Appreciate urine lites, urine creatinine, urine eosinophils. Hepatitis panel. Will request case management to work on outpatient dialysis chair time. 2. Accelerated hypertension: Goal blood pressure less than 140/90 mmHg. Patient takes Coreg 12.5 mg twice daily along with losartan at home. Not able to maintain oral medications. Nicardipine drip weaned off. Patient able to take oral medications orally. Continue with home dose of Coreg for now. Uptitrate as per goal blood pressure. Holding off on losartan for now. Echocardiogram done shows an EF of 60% with grade 1 diastolic dysfunction, moderate aortic valve stenosis with mean gradient of 8.3 across the valve with RVSP of 38 mmHg consistent with mild pulmonary tension. 3. Acute cholangitis: CT on pelvis done on admission consistent with intra and extrahepatic ductal dilatation with cholelithiasis and dilated gallbladder. Confirmed on MRCP. MRCP concerning for possible acute ascending cholangitis with possibility of cholecystitis though cholecystitis could be just inflammation from cholangitis. Confirmed with radiology. Patient's leukocytosis resolving Liver function within normal limits. Nausea resolving. Most likely patient has mild cholangitis. Discussed in detail with surgical team. As per surgical team no need for ERCP or biliary drain for now. Patient clinically improving. Patient is immunocompromised. Follow-up with blood cultures. Continue with IV Zosyn for now. 4. Nausea and vomiting: Most likely in setting of uremia. Cannot rule out in setting of acute cholangitis. Seen on MRCP. Lipase within normal limits. LFTs within normal limits. Zofran as needed, scopolamine patch. IV Protonix 40 mg twice daily. Clear liquid diet for now. 5. Renal transplant recipient: Discussion between ER physician and transplant team at . Continue with home dose of mycophenolate. Start on IV Solu-Medrol 10 mg twice daily. Will switch to tacrolimus once patient is able to maintain oral intake. Check tacro level. Does have an old fistula. 6. Moderate aortic valve stenosis: 7. Immunosuppressed status: 8. Uremia: BUN worsening to 96. Creatinine up to 6.2. Continue to monitor daily. 9. High anion gap metabolic acidosis: 10. Pancreas transplanted: CT on close as above. Lipase within normal limits. Plan: Full code Clear liquid diet Protonix for PUD prophylaxis Heparin 5000 every 12 hourly for DVT prophylaxis Plan for the day: Post tunneled catheter placement on 05/29. Appreciate surgical ankle nephrology recommendations. Continue with dialysis. Second session of dialysis today. Goal blood pressure less than 140/90 mmHg. Increase hydralazine to 75 mg 3 times daily. Continue with current dose of Coreg. Can add amlodipine or ARB. For now start him nicardipine drip and wean with systolic off 150 mmHg Concern for mild ascending cholangitis. So far stable. Advance to full liquid diet. As patient is immunocompromise continue with IV Zosyn to finish a 5-day course. Follow-up blood cultures. PDMP PDMP Reviewed: Not Reviewed Attestations 2 Medical Necessity Statement*: Requires further hospitalization for management of BRYNN on CKD requiring dialysis in a patient with failed renal transplant, acute mild ascending cholangitis, hypertensive urgency Critical Care Time: The high probability of a clinically significant, sudden or life threatening deterioration of the patient's renal, cardiac, ID, GI system(s) required my full and direct attention, intervention and personal management. The critical care time is as shown. This time is in addition to time spent performing any reported procedures but includes the following: [x] Data and vital sign review and interpretation [x] Patient assessment, examination and intervention [x] Documentation [x] Medication orders and management Critical Care Time (min): 65 Coding Level of Care Code Critical Care >/= 30 minutes Critical care time (in minutes): 65 The high probability of a clinically significant, sudden or life threatening deterioration, as referenced in this documentation, required my full and direct attention, intervention and personal management. The critical care time shown is in addition to time spent performing any reported separately billable procedures and includes the following: [x] Data and vital sign review and interpretation [x ] Patient assessment, examination and intervention [x] Medication orders and management [x] Patient/Family updates as able [x] Care Coordination and Documentation. Diagnoses Acute kidney injury superimposed on CKD N17.9; N18.9 Accelerated hypertension I10 Acute cholangitis K83.09 Nausea and vomiting R11.2 Renal transplant recipient Z94.0 Moderate aortic valve stenosis I35.0 Immunosuppressed status D84.9 Uremia N19 High anion gap metabolic acidosis E87.29 Pancreas transplanted Z94.83
[2025-05-30] MEDS: heparin, porcine 1,000 unit/mL INJ 10 mL 10000 UNIT HE (14:15)
[2025-05-30] MEDS: heparin, porcine 1,000 unit/mL INJ 10 mL 10000 UNIT INTRACATH (14:15)
--- NOTE | 2025-05-30 17:51 | PC.NURSE ---
Shift SUmmary: Received dialysis today. 1.5L removed. uneventful Frequently hypertensive today. Hydralazine increased from 10mg q6 to 75mg TID. Losartan added. Blood pressures appear stable at the time of this note around 150/80, but unsure if this trend will continue as she recently received dialysis, has only had one dose so far of the scheduled losartan, and one dose so far of the 75mg of hydralazine. Intake/ouput: Oral Intake: +1600 Urine output: -250 Dialysis output: -1500
[2025-05-31] VITALS (88 sets, daily range): BP systolic 121–210; BP diastolic 63–114; PULSE 58–79; RESP 1–23; TEMP 36.6–37.5; O2SAT 96–100
[2025-05-31] MEDS: labetalol 5 mg/mL SDV 20mL 10 MG IVP (00:51)
[2025-05-31] MEDS: hyDRALAzine 20 mg/mL INJ 1 mL 10 MG IVP ×2 (01:49→07:19)
[2025-05-31] MEDS: nitroglycerin drip 50 MG/250 ML PREMIX IV (02:43)
[2025-05-31 04:12] LABS: Hematocrit 24.8 % (36-47); Hemoglobin 7.70 g/dL (11.27-16.99); Mean Corpuscular HGB Conc 31.0 g/dL (30-55); Mean Corpuscular Hemoglobin 29.6 pg (27-33); Mean Corpuscular Volume 95.4 fl (85-98); Nucleated Red Blood Cells % 0 %; Platelet Count 181 10^3/cmm (157-399); Red Blood Count 2.60 10^6/uL (3.85-5.65); White Blood Count 13.92 10^3/uL (3.29-11.43)
[2025-05-31 04:38] LABS: Alanine Aminotransferase 15 U/L (0-33); Albumin Level 3.0 g/dL (3.5-5.2); Alkaline Phosphatase 53 U/L (35-105); Anion Gap 17.0 (5-19); Aspartate Amino Transferase 18 U/L (0-32); Blood Urea Nitrogen 33 mg/dL (8-23); Calcium 7.7 mg/dL (8.5-10.5); Carbon Dioxide 24 mmol/L (22-29); Chloride 102 mmol/L (98-107); Globulin 2.3 g/dL (1.3-4.6); Glucose 128 mg/dL (65-115); Magnesium 1.8 mg/dL (1.7-2.3); Osmolality Calculated 297 mOsm/kg (285-295); Potassium 4.0 mmol/L (3.5-5.1); Sodium 139 mmol/L (136-145); Total Protein 5.3 g/dL (6.6-8.7)
[2025-05-31 04:41] LABS: Creatinine Clr Calc Pharmacy 13.6244
[2025-05-31] MEDS: methylPREDNISolone sod succ 40 mg/mL INJ 10 MG IVP ×2 (05:38→17:59)
--- NOTE | 2025-05-31 05:50 | PC.NURSE ---
Patient BP has been 170 systolic throughout the night, Hydralazine PRN and PO meds given, new orders received from physician. patient BP continues to rise, Physician has requested that I give PO Coreg that is due at 0900, be given now.
[2025-05-31] MEDS: piperacillin-tazobactam 3.375 GM in sodium chloride 0.9% (plus) 50 ML IV ×2 (07:19→20:38)
[2025-05-31] MEDS: pantoprazole 40 mg SDV IVP ×2 (08:06→20:37)
[2025-05-31] MEDS: MYCOPHENOLATE SODIUM 180 MG 180 EACH PO ×4 (08:24→20:40)
--- NOTE | 2025-05-31 11:43 | P.PN_ITS ---
Subjective 2 Subjective: No abdominal pain Dialysis catheter working Vitals/I&O/Wt Last Vital Signs Temp 99.5 F 05/31/25 08:00 Pulse 70 05/31/25 10:15 Resp 14 05/31/25 10:15 BP 168/84 05/31/25 10:15 Pulse Ox 99 05/31/25 10:15 O2 Del Method Room Air 05/31/25 10:00 05/30/25 05/31/25 05/31/25 22:59 06:59 14:59 Intake Total 1771 / 2921 79.200 / 3000.200 282.25 / 282.25 Output Total 2205 / 2355 50 / 2405 Balance -434 / 566 29.200 / 595.200 282.25 / 282.25 Weight last 48 hrs Weight 105 lb 13.15 oz Weight 105 lb 13.15 oz Weight 106 lb 14.787 oz Weight 105 lb 13.15 oz Weight 104 lb 11.513 oz Physical Exam 2 Narrative: Chest: Unlabored breathing room air. Tunnel dialysis catheter working Heart: Regular rate and rhythm. Abdomen: Soft, nontender, nondistended. Urinary Catheter Management: Hackett: Cath Placed During This Visit: yes Reason for Continuing Indwelling Catheter: Accurate Measurement of Urinary Output in Critically Ill Patients Urinary Catheter Date of Insertion: 05/28/25 Urinary Catheter Time of Insertion: 21:10 Data 06/01/25 04:14 06/01/25 04:14 Micro: Microbiology 05/28/25 21:16 Urine Culture - Final Urine,Clean Catch Enterobacter cloacae A&P Assessment and plan 1. ESRD (end stage renal disease): Plan: 64-year-old female whom surgery was consulted for a dialysis catheter. Tunneled dialysis catheter is functional. No abdominal pain. But given immunosuppression treated with 5 days of antibiotics for possible cholangitis. PDMP PDMP Reviewed: Not Reviewed Attestations 2 Medical Necessity Statement*: N/A Coding Level of Care Code 38916 Diagnoses ESRD (end stage renal disease) N18.6
--- NOTE | 2025-05-31 13:50 | P.PN_ITS ---
Subjective 2 Subjective: Overnight blood pressures were elevated for which nitro drip was started. Today morning complaining of headache. Denies any nausea. Has remained afebrile otherwise. Medications: Reviewed: Yes Vitals/I&O/Wt Last Vital Signs Temp 97.8 F 05/31/25 12:00 Pulse 68 05/31/25 12:15 Resp 10 L 05/31/25 12:00 BP 172/83 05/31/25 12:15 Pulse Ox 100 05/31/25 12:15 O2 Del Method Room Air 05/31/25 12:00 05/30/25 05/31/25 05/31/25 22:59 06:59 14:59 Intake Total 1771 / 2921 79.200 / 3000.200 582.25 / 582.25 Output Total 2205 / 2355 50 / 2405 Balance -434 / 566 29.200 / 595.200 582.25 / 582.25 Weight last 48 hrs Weight 48 kg Weight 48 kg Weight 48.5 kg Weight 48 kg Weight 47.5 kg Physical Exam 2 Narrative: General: In distress because of nausea, AO x 3, HEENT: PERRLA, pupils bilaterally equal and reactive Chest: Normal vesicular breath sounds, no added sounds, equal good air entry bilaterally CVS: S1-S2 regular, no murmurs, no tachycardia, no gallops, no rubs Abdomen: Soft, nontender, no organomegaly, bowel sounds present Neuro: No focal deficits, no facial deformity, AO x3, power 5/5 in all limbs Urinary Catheter Management: Hackett: Cath Placed During This Visit: yes Reason for Continuing Indwelling Catheter: Accurate Measurement of Urinary Output in Critically Ill Patients Urinary Catheter Date of Insertion: 05/28/25 Urinary Catheter Time of Insertion: 21:10 Data 05/31/25 03:45 05/31/25 03:45 Micro: Microbiology 05/28/25 21:16 Urine Culture - Final Urine,Clean Catch Enterobacter cloacae A&P Assessment and plan 1. Acute kidney injury superimposed on CKD: Failure of renal transplant. Associated with anion gap acidosis along with uremia. Anion gap acidosis improving. Continue with bicarb drip at 75 cc/h. Consult nephrology. Plan for tunnel catheter later in the day and possible initiation of dialysis. Appreciate urine lites, urine creatinine, urine eosinophils. Hepatitis panel. Will request case management to work on outpatient dialysis chair time. 2. Accelerated hypertension: Goal blood pressure less than 140/90 mmHg. Patient takes Coreg 12.5 mg twice daily along with losartan at home. Not able to maintain oral medications. Nicardipine drip weaned off. Patient able to take oral medications orally. Continue with home dose of Coreg for now. Uptitrate as per goal blood pressure. Holding off on losartan for now. Echocardiogram done shows an EF of 60% with grade 1 diastolic dysfunction, moderate aortic valve stenosis with mean gradient of 8.3 across the valve with RVSP of 38 mmHg consistent with mild pulmonary tension. 3. Acute cholangitis: CT on pelvis done on admission consistent with intra and extrahepatic ductal dilatation with cholelithiasis and dilated gallbladder. Confirmed on MRCP. MRCP concerning for possible acute ascending cholangitis with possibility of cholecystitis though cholecystitis could be just inflammation from cholangitis. Confirmed with radiology. Patient's leukocytosis resolving Liver function within normal limits. Nausea resolving. Most likely patient has mild cholangitis. Discussed in detail with surgical team. As per surgical team no need for ERCP or biliary drain for now. Patient clinically improving. Patient is immunocompromised. Follow-up with blood cultures. Continue with IV Zosyn for now. 4. Nausea and vomiting: Most likely in setting of uremia. Cannot rule out in setting of acute cholangitis. Seen on MRCP. Lipase within normal limits. LFTs within normal limits. Zofran as needed, scopolamine patch. IV Protonix 40 mg twice daily. Clear liquid diet for now. 5. Renal transplant recipient: Discussion between ER physician and transplant team at . Continue with home dose of mycophenolate. Start on IV Solu-Medrol 10 mg twice daily. Will switch to tacrolimus once patient is able to maintain oral intake. Check tacro level. Does have an old fistula. 6. Moderate aortic valve stenosis: 7. Immunosuppressed status: 8. Uremia: BUN worsening to 96. Creatinine up to 6.2. Continue to monitor daily. 9. High anion gap metabolic acidosis: 10. Pancreas transplanted: CT on close as above. Lipase within normal limits. Plan: Full code Clear liquid diet Protonix for PUD prophylaxis Heparin 5000 every 12 hourly for DVT prophylaxis Plan for the day: Appreciate nephrology recommendations. Continue with current IV antibiotics. Will plan to finish a 5-day course given patient being immunocompromised for mild ascending cholangitis. Blood pressure is elevated. Goal blood pressure less than 140/90 mmHg. Change clonidine patch to 0.2 3 times daily. Continue Coreg but increase dose to 25 mg twice daily, increase hydralazine to 100 mg 3 times daily. Add Imdur 60 mg oral daily, doxazosin 2 mg oral daily. Will uptitrate as for goal blood pressure. If needed will switch from nitro to Cardene drip. Patient allergic to nifedipine. Care discussed with detail with patient's outpatient transplant team. Started on Prograf today. Continue with mycophenolate. Will continue steroid for 1 more day. Full liquid diet. PDMP PDMP Reviewed: Not Reviewed Attestations 2 Medical Necessity Statement*: Requires further hospitalization for management of hypertensive urgency, ascending cholangitis, BRYNN on CKD requiring dialysis in a patient with failure of renal transplant, immunocompromised Critical Care Time: The high probability of a clinically significant, sudden or life threatening deterioration of the patient's [cardiac, renal] system(s) required my full and direct attention, intervention and personal management. The critical care time is as shown. This time is in addition to time spent performing any reported procedures but includes the following: [x] Data and vital sign review and interpretation [x] Patient assessment, examination and intervention [x] Documentation [x] Medication orders and management Critical Care Time (min): 80 Coding Level of Care Code Critical Care >/= 30 minutes Critical care time (in minutes): 80 The high probability of a clinically significant, sudden or life threatening deterioration, as referenced in this documentation, required my full and direct attention, intervention and personal management. The critical care time shown is in addition to time spent performing any reported separately billable procedures and includes the following: [x] Data and vital sign review and interpretation [x ] Patient assessment, examination and intervention [x] Medication orders and management [x] Patient/Family updates as able [x] Care Coordination and Documentation. Diagnoses Acute kidney injury superimposed on CKD N17.9; N18.9 Accelerated hypertension I10 Acute cholangitis K83.09 Nausea and vomiting R11.2 Renal transplant recipient Z94.0 Moderate aortic valve stenosis I35.0 Immunosuppressed status D84.9 Uremia N19 High anion gap metabolic acidosis E87.29 Pancreas transplanted Z94.83
[2025-06-01] VITALS (52 sets, daily range): BP systolic 114–194; BP diastolic 60–99; PULSE 55–68; RESP 0–21; TEMP 36.3–36.9; O2SAT 97–100
[2025-06-01] MEDS: hyDRALAzine 20 mg/mL INJ 1 mL 10 MG IVP (02:10)
[2025-06-01 04:32] LABS: Hematocrit 25.1 % (36-47); Hemoglobin 7.80 g/dL (11.27-16.99); Mean Corpuscular HGB Conc 31.1 g/dL (30-55); Mean Corpuscular Hemoglobin 30.1 pg (27-33); Mean Corpuscular Volume 96.9 fl (85-98); Nucleated Red Blood Cells % 0 %; Platelet Count 194 10^3/cmm (157-399); Red Blood Count 2.59 10^6/uL (3.85-5.65); White Blood Count 8.84 10^3/uL (3.29-11.43)
[2025-06-01 05:11] LABS: Alanine Aminotransferase 14 U/L (0-33); Albumin Level 3.0 g/dL (3.5-5.2); Alkaline Phosphatase 48 U/L (35-105); Anion Gap 17.5 (5-19); Aspartate Amino Transferase 14 U/L (0-32); Blood Urea Nitrogen 46 mg/dL (8-23); Calcium 7.7 mg/dL (8.5-10.5); Carbon Dioxide 22 mmol/L (22-29); Chloride 96 mmol/L (98-107); Globulin 1.8 g/dL (1.3-4.6); Glucose 133 mg/dL (65-115); Osmolality Calculated 286 mOsm/kg (285-295); Potassium 4.5 mmol/L (3.5-5.1); Sodium 131 mmol/L (136-145); Total Protein 4.8 g/dL (6.6-8.7)
[2025-06-01 05:12] LABS: Creatinine Clr Calc Pharmacy 10.4137
[2025-06-01] MEDS: methylPREDNISolone sod succ 40 mg/mL INJ 10 MG IVP (06:19)
[2025-06-01] MEDS: MYCOPHENOLATE SODIUM 180 MG 180 EACH PO ×4 (07:38→21:19)
[2025-06-01] MEDS: pantoprazole 40 mg SDV IVP ×3 (07:39→21:17)
[2025-06-01] MEDS: piperacillin-tazobactam 3.375 GM in sodium chloride 0.9% (plus) 50 ML IV ×2 (07:41→19:58)
--- NOTE | 2025-06-01 07:58 | PC.NURSE ---
Physician contacted about high blood pressure, orders received to give morning medications early.
--- NOTE | 2025-06-01 08:52 | P.PN_ITS ---
Subjective 2 Subjective: No abdominal pain Dialysis catheter functional Vitals/I&O/Wt Last Vital Signs Temp 98.4 F 05/31/25 21:30 Pulse 60 06/01/25 07:30 Resp 12 06/01/25 07:30 BP 194/94 06/01/25 07:40 Pulse Ox 100 06/01/25 07:30 O2 Del Method Room Air 05/31/25 18:00 05/31/25 06/01/25 06/01/25 22:59 06:59 14:59 Intake Total 600 / 1232.25 250 / 1482.25 Output Total 350 / 350 25 / 375 Balance 250 / 882.25 225 / 1107.25 Weight last 48 hrs Weight 114 lb 10.246 oz Weight 114 lb 10.246 oz Weight 105 lb 13.15 oz Weight 105 lb 13.15 oz Weight 106 lb 14.787 oz Physical Exam 2 Narrative: Chest: Unlabored breathing room air. No lymphadenopathy. Dialysis catheter functional Heart: Regular rate and rhythm. Abdomen: Soft, nontender, nondistended. No masses or lymphadenopathy. Urinary Catheter Management: Hackett: Cath Placed During This Visit: yes Reason for Continuing Indwelling Catheter: Accurate Measurement of Urinary Output in Critically Ill Patients Urinary Catheter Date of Insertion: 05/28/25 Urinary Catheter Time of Insertion: 21:10 Data 06/02/25 04:55 06/02/25 04:55 A&P Assessment and plan 1. ESRD (end stage renal disease): Plan: 64-year-old female who presented in renal failure. Tunneled dialysis catheter working. No abdominal pain. PDMP PDMP Reviewed: Not Reviewed Attestations 2 Medical Necessity Statement*: N/A Coding Level of Care Code 44486 Diagnoses ESRD (end stage renal disease) N18.6
--- NOTE | 2025-06-01 11:31 | USR_ITS ---
PROCEDURE INFORMATION: Exam: US Transplanted Kidney Including Duplex Doppler Exam date and time: 06/01/2025 4:04 PM Age: 64 years old Clinical indication: Screening exam; Duplex for renal artery stenosis; Prior surgery; Surgery date: 6+ months; Surgery type: Kidney transplant TECHNIQUE: Imaging protocol: US of the transplanted kidney with real time and wilson scale was performed with image documentation. Duplex ultrasound scan of the arterial and venous flow of the abdomen with color Doppler flow and spectral waveform analysis was also performed. COMPARISON: MR MRCP [id number] 05/29/2025 10:28 AM FINDINGS: Transplant kidney: Transplant kidney in the left lower quadrant. Transplanted kidney measures 8.0 x 4.5 cm. There is mild transplant hydronephrosis. Graft renal artery: Patent. Proximal left renal artery with a peak systolic velocity of 102.6 cm/sec, mid portions at 28 cm/sec, and distal portions at 37.3 cm/sec. At the hilum the peak systolic velocity is 18.5 cm/sec. Arterial waveforms are normal. No significant stenosis. Interlobar/arcuate arteries: Patent. No elevated resistive indices. Resistive indices range from 0.59-0.64. Graft renal vein: Patent. Urinary bladder: Not imaged. Right kidney: [place] kidney is severely atrophic measuring 2.1 x 2.4 x 6.7 cm with interspersed calcifications. No hydronephrosis. No masses. Left kidney: The belkofski left kidney is not identified. US/CV renal doppler [id number] IMPRESSION: 1. Severely atrophic belk[place]ski right kidney. The belk[place]ski left kidney is not well visualized. 2. Transplant kidney in the left lower quadrant demonstrates patency of the transplant renal artery and vein. There is no significant elevated resistive indices within the interlobar/arcuate arteries. There is however mild transplant hydronephrosis similar to CT abdomen and pelvis obtained on 05/28/2025.
--- NOTE | 2025-06-01 15:10 | P.PN_ITS ---
Subjective 2 Subjective: No events overnight. Today morning patient states she is feeling a lot better. Denies any nausea, vomiting, headache. Able to tolerate diet. Asking when she can get regular food. Denies any abdominal pain. Medications: Reviewed: Yes Vitals/I&O/Wt Last Vital Signs Temp 97.4 F L 06/01/25 12:00 Pulse 60 06/01/25 14:00 Resp 19 H 06/01/25 14:00 BP 137/76 06/01/25 14:36 Pulse Ox 100 06/01/25 14:00 O2 Del Method Room Air 06/01/25 14:00 06/01/25 06/01/25 06/01/25 06:59 14:59 22:59 Intake Total 250 / 1482.25 1150 / 1150 Output Total 25 / 375 Balance 225 / 1107.25 1150 / 1150 Weight last 48 hrs Weight 52 kg Weight 52 kg Weight 48 kg Weight 48 kg Weight 48.5 kg Physical Exam 2 Narrative: General: In distress because of nausea, AO x 3, HEENT: PERRLA, pupils bilaterally equal and reactive Chest: Normal vesicular breath sounds, no added sounds, equal good air entry bilaterally CVS: S1-S2 regular, no murmurs, no tachycardia, no gallops, no rubs Abdomen: Soft, nontender, no organomegaly, bowel sounds present Neuro: No focal deficits, no facial deformity, AO x3, power 5/5 in all limbs Urinary Catheter Management: Hackett: Cath Placed During This Visit: yes Reason for Continuing Indwelling Catheter: Accurate Measurement of Urinary Output in Critically Ill Patients Urinary Catheter Date of Insertion: 05/28/25 Urinary Catheter Time of Insertion: 21:10 Data 06/01/25 04:14 06/01/25 04:14 A&P Assessment and plan 1. Acute kidney injury superimposed on CKD: Failure of renal transplant. Associated with anion gap acidosis along with uremia. Anion gap acidosis improving. Continue with bicarb drip at 75 cc/h. Consult nephrology. Plan for tunnel catheter later in the day and possible initiation of dialysis. Appreciate urine lites, urine creatinine, urine eosinophils. Hepatitis panel. Will request case management to work on outpatient dialysis chair time. 2. Accelerated hypertension: Goal blood pressure less than 140/90 mmHg. Patient takes Coreg 12.5 mg twice daily along with losartan at home. Not able to maintain oral medications. Nicardipine drip weaned off. Patient able to take oral medications orally. Continue with home dose of Coreg for now. Uptitrate as per goal blood pressure. Holding off on losartan for now. Echocardiogram done shows an EF of 60% with grade 1 diastolic dysfunction, moderate aortic valve stenosis with mean gradient of 8.3 across the valve with RVSP of 38 mmHg consistent with mild pulmonary tension. 3. Acute cholangitis: CT on pelvis done on admission consistent with intra and extrahepatic ductal dilatation with cholelithiasis and dilated gallbladder. Confirmed on MRCP. MRCP concerning for possible acute ascending cholangitis with possibility of cholecystitis though cholecystitis could be just inflammation from cholangitis. Confirmed with radiology. Patient's leukocytosis resolving Liver function within normal limits. Nausea resolving. Most likely patient has mild cholangitis. Discussed in detail with surgical team. As per surgical team no need for ERCP or biliary drain for now. Patient clinically improving. Patient is immunocompromised. Follow-up with blood cultures. Continue with IV Zosyn for now. 4. Nausea and vomiting: Most likely in setting of uremia. Cannot rule out in setting of acute cholangitis. Seen on MRCP. Lipase within normal limits. LFTs within normal limits. Zofran as needed, scopolamine patch. IV Protonix 40 mg twice daily. Clear liquid diet for now. 5. Renal transplant recipient: Discussion between ER physician and transplant team at . Continue with home dose of mycophenolate. Start on IV Solu-Medrol 10 mg twice daily. Will switch to tacrolimus once patient is able to maintain oral intake. Check tacro level. Does have an old fistula. 6. Moderate aortic valve stenosis: 7. Immunosuppressed status: 8. Uremia: BUN worsening to 96. Creatinine up to 6.2. Continue to monitor daily. 9. High anion gap metabolic acidosis: 10. Pancreas transplanted: CT on close as above. Lipase within normal limits. Plan: Full code Clear liquid diet Protonix for PUD prophylaxis Heparin 5000 every 12 hourly for DVT prophylaxis Plan for the day: Blood pressure is better today. Slightly elevated overnight. Continue with Coreg 25 mg twice daily, hydralazine 100 mg 3 times daily, doxazosin to be increased to 4 mg daily, Imdur to be increased to 60 mg twice daily. Continue with current IV antibiotics to finish a 5-day course for ascending cholangitis. Advance to mechanical soft diet. Appreciate nephrology recommendations. Plan for dialysis in a.m. Care discussed with detail with patient's outpatient transplant team. Started on Prograf today. Continue with mycophenolate. Will continue steroid for 1 more day. Full liquid diet. PDMP PDMP Reviewed: Not Reviewed Attestations 2 Medical Necessity Statement*: Requires further hospitalization for management of hypertensive urgency, BRYNN in setting of failure of renal transplant, mild ascending cholangitis and an immunocompromised patient Diagnoses Acute kidney injury superimposed on CKD N17.9; N18.9 Accelerated hypertension I10 Acute cholangitis K83.09 Nausea and vomiting R11.2 Renal transplant recipient Z94.0 Moderate aortic valve stenosis I35.0 Immunosuppressed status D84.9 Uremia N19 High anion gap metabolic acidosis E87.29 Pancreas transplanted Z94.83
--- NOTE | 2025-06-01 20:25 | P.PN_ITS ---
Subjective 2 Subjective: no new c/o BP better Medications: Reviewed: Yes Vitals/I&O/Wt Last Vital Signs Temp 98.0 F 06/01/25 16:00 Pulse 59 L 06/01/25 18:00 Resp 12 06/01/25 18:00 BP 160/83 06/01/25 18:00 Pulse Ox 100 06/01/25 18:00 O2 Del Method Room Air 06/01/25 18:00 06/01/25 06/01/25 06/01/25 06:59 14:59 22:59 Intake Total 250 / 1482.25 1150 / 1150 400 / 1550 Output Total / 375 250 / 250 Balance 225 / 1107.25 1150 / 1150 150 / 1300 Weight last 48 hrs Weight 52 kg Weight 52 kg Weight 48 kg Weight 48 kg Physical Exam 2 Narrative: Patient is awake alert, no distress, on room air No JVD PERRLA S1-S2 regular rate and rhythm Lungs with decreased breath sounds bilaterally Abdomen soft nontender Extremities no pedal edema Skin no rash Urinary Catheter Management: Hackett: Cath Placed During This Visit: yes Reason for Continuing Indwelling Catheter: Acute Urinary Retention or Obstruction Urinary Catheter Date of Insertion: 05/28/25 Urinary Catheter Time of Insertion: 21:10 Data 06/01/25 04:14 06/01/25 04:14 A&P Assessment and plan 1. ESRD (end stage renal disease): Plan: 1. CKD stage V progressed to ESRD: Patient is failed renal transplant , Now has uremic symptoms including severe fatigue, nausea vomiting and poor appetite. - s/pr tunneled catheter placement and HD initiated , patient agrees -HD X 2 sessions , , low BFR to prevent dialysis disequilibrium - Next hD monday 2. Metabolic acidosis, in the setting of advanced CKD, should improve after HD initiation 3. Hypertension: Blood pressure poorly controlled, reevaluate after hemodialysis ,was on nitro drip , titrating oral meds 4. Anemia: Hemoglobin 10.5, monitor 5. Status post renal transplant, currently on mycophenolate, tacrolimus and prednisone. - Will continue mycophenolate and tacrolimus, on IV Solu-Medrol which will be switched to prednisone once p.o. intake improved Patient evaluated using audiovisual cart. Time spent 40 minutes. PDMP PDMP Reviewed: Not Reviewed Attestations 2 Medical Necessity Statement*: per mediicne Coding Level of Care Code Acute Code for Chg Fwd Diagnoses ESRD (end stage renal disease) N18.6
[2025-06-01] MEDS: heparin 5,000 unit/mL INJ 1 mL 5000 UNIT SUBCUT (21:17)
[2025-06-02] VITALS (34 sets, daily range): BP systolic 104–159; BP diastolic 55–109; PULSE 53–70; RESP 4–20; TEMP 36.3–36.6; O2SAT 94–100
[2025-06-02 05:22] LABS: Hematocrit 24.7 % (36-47); Hemoglobin 7.80 g/dL (11.27-16.99); Mean Corpuscular HGB Conc 31.6 g/dL (30-55); Mean Corpuscular Hemoglobin 30.1 pg (27-33); Mean Corpuscular Volume 95.4 fl (85-98); Nucleated Red Blood Cells % 0.4 %; Platelet Count 183 10^3/cmm (157-399); Red Blood Count 2.59 10^6/uL (3.85-5.65); White Blood Count 8.00 10^3/uL (3.29-11.43)
[2025-06-02 06:03] LABS: Alanine Aminotransferase 12 U/L (0-33); Albumin Level 2.5 g/dL (3.5-5.2); Alkaline Phosphatase 41 U/L (35-105); Aspartate Amino Transferase 13 U/L (0-32); Blood Urea Nitrogen 55 mg/dL (8-23); Calcium 7.1 mg/dL (8.5-10.5); Carbon Dioxide 19 mmol/L (22-29); Chloride 93 mmol/L (98-107); Globulin 1.6 g/dL (1.3-4.6); Glucose 97 mg/dL (65-115); Osmolality Calculated 279 mOsm/kg (285-295); Sodium 127 mmol/L (136-145); Total Protein 4.1 g/dL (6.6-8.7)
[2025-06-02 06:10] LABS: Creatinine Clr Calc Pharmacy 10.0995
[2025-06-02 06:11] LABS: Anion Gap 19.5 (5-19); Potassium 4.5 mmol/L (3.5-5.1)
[2025-06-02] MEDS: piperacillin-tazobactam 3.375 GM in sodium chloride 0.9% (plus) 50 ML IV ×2 (07:54→19:13)
[2025-06-02] MEDS: pantoprazole 40 mg SDV IVP ×2 (07:54→20:47)
[2025-06-02] MEDS: MYCOPHENOLATE SODIUM 180 MG 180 EACH PO ×4 (08:02→20:48)
[2025-06-02] MEDS: heparin 5,000 unit/mL INJ 1 mL 5000 UNIT SUBCUT ×2 (08:08→20:47)
[2025-06-02] MEDS: heparin, porcine 1,000 unit/mL INJ 10 mL 1000 UNIT IV (10:25)
--- NOTE | 2025-06-02 11:23 | P.PN_ITS ---
Vitals/I&O/Wt Last Vital Signs Temp 97.8 F 06/01/25 22:00 Pulse 54 L 06/02/25 06:00 Resp 14 06/02/25 06:00 BP 154/85 06/02/25 08:00 Pulse Ox 100 06/02/25 06:00 O2 Del Method Room Air 06/01/25 18:00 06/01/25 06/02/25 06/02/25 22:59 06:59 14:59 Intake Total 640 / 1790 290 / 2080 Output Total 250 / 250 150 / 400 Balance 390 / 1540 140 / 1680 Weight last 48 hrs Weight 116 lb Weight 114 lb 10.246 oz Weight 114 lb 10.246 oz Physical Exam 2 Urinary Catheter Management: Hackett: Cath Placed During This Visit: yes Reason for Continuing Indwelling Catheter: Accurate Measurement of Urinary Output in Critically Ill Patients Urinary Catheter Date of Insertion: 05/28/25 Urinary Catheter Time of Insertion: 21:10 Data 06/02/25 04:55 06/02/25 04:55 A&P PDMP PDMP Reviewed: Not Reviewed Coding Level of Care Code Acute Code for Chg Fwd
[2025-06-02 13:24] LABS: Tacrolimus, Highly Sensitive 1.0 mcg/L
--- NOTE | 2025-06-02 13:56 | P.PN_ITS ---
Subjective 2 Subjective: seen today hb 7.8 plan for dialysis today bp better controlled pt requesting to go home Vitals/I&O/Wt Last Vital Signs Temp 97.8 F 06/01/25 22:00 Pulse 54 L 06/02/25 06:00 Resp 14 06/02/25 06:00 BP 154/85 06/02/25 08:00 Pulse Ox 100 06/02/25 06:00 O2 Del Method Room Air 06/01/25 18:00 06/01/25 06/02/25 06/02/25 22:59 06:59 14:59 Intake Total 640 / 1790 290 / 2080 350 / 350 Output Total 250 / 250 150 / 400 Balance 390 / 1540 140 / 1680 350 / 350 Weight last 48 hrs Weight 52.617 kg Weight 52 kg Weight 52 kg Physical Exam 2 Narrative: General:NAD HEENT: PERRLA, pupils bilaterally equal and reactive Chest: Normal vesicular breath sounds, no added sounds, equal good air entry bilaterally CVS: S1-S2 regular, no murmurs, no tachycardia, no gallops, no rubs Abdomen: Soft, nontender, no organomegaly, bowel sounds present Neuro: No focal deficits, no facial deformity, AO x3, Urinary Catheter Management: Hackett: Cath Placed During This Visit: yes Reason for Continuing Indwelling Catheter: Accurate Measurement of Urinary Output in Critically Ill Patients Urinary Catheter Date of Insertion: 05/28/25 Urinary Catheter Time of Insertion: 21:10 Data 06/02/25 04:55 06/02/25 04:55 A&P Assessment and plan 1. Acute kidney injury superimposed on CKD: Failure of renal transplant. Associated with anion gap acidosis along with uremia. Anion gap acidosis improving. Continue with bicarb drip at 75 cc/h. Consult nephrology. Plan for tunnel catheter later in the day and possible initiation of dialysis. Appreciate urine lites, urine creatinine, urine eosinophils. Hepatitis panel. Will request case management to work on outpatient dialysis chair time. 2. Accelerated hypertension: Goal blood pressure less than 140/90 mmHg. Patient takes Coreg 12.5 mg twice daily along with losartan at home. Not able to maintain oral medications. Nicardipine drip weaned off. Patient able to take oral medications orally. Continue with home dose of Coreg for now. Uptitrate as per goal blood pressure. Holding off on losartan for now. Echocardiogram done shows an EF of 60% with grade 1 diastolic dysfunction, moderate aortic valve stenosis with mean gradient of 8.3 across the valve with RVSP of 38 mmHg consistent with mild pulmonary tension. 3. Acute cholangitis: CT on pelvis done on admission consistent with intra and extrahepatic ductal dilatation with cholelithiasis and dilated gallbladder. Confirmed on MRCP. MRCP concerning for possible acute ascending cholangitis with possibility of cholecystitis though cholecystitis could be just inflammation from cholangitis. Confirmed with radiology. Patient's leukocytosis resolving Liver function within normal limits. Nausea resolving. Most likely patient has mild cholangitis. Discussed in detail with surgical team. As per surgical team no need for ERCP or biliary drain for now. Patient clinically improving. Patient is immunocompromised. Follow-up with blood cultures. Continue with IV Zosyn for now. 4. Nausea and vomiting: Most likely in setting of uremia. Cannot rule out in setting of acute cholangitis. Seen on MRCP. Lipase within normal limits. LFTs within normal limits. Zofran as needed, scopolamine patch. IV Protonix 40 mg twice daily. Clear liquid diet for now. 5. Renal transplant recipient: Discussion between ER physician and transplant team at . Continue with home dose of mycophenolate. Start on IV Solu-Medrol 10 mg twice daily. Will switch to tacrolimus once patient is able to maintain oral intake. Check tacro level. Does have an old fistula. 6. Moderate aortic valve stenosis: 7. Immunosuppressed status: 8. Uremia: BUN worsening to 96. Creatinine up to 6.2. Continue to monitor daily. 9. High anion gap metabolic acidosis: 10. Pancreas transplanted: CT on close as above. Lipase within normal limits. Plan: Full code Clear liquid diet Protonix for PUD prophylaxis Heparin 5000 every 12 hourly for DVT prophylaxis Plan for the day: Blood pressure is better today. Slightly elevated overnight. Continue with Coreg 25 mg twice daily, hydralazine 100 mg 3 times daily, doxazosin to be increased to 4 mg daily, Imdur to be increased to 60 mg twice daily. Continue with current IV antibiotics to finish a 5-day course for ascending cholangitis. Advance to mechanical soft diet. Appreciate nephrology recommendations. Plan for dialysis in a.m. Care discussed with detail with patient's outpatient transplant team. Started on Prograf today. Continue with mycophenolate. Will continue steroid for 1 more day. Full liquid diet. 06/02/2025 plan for dc in AM continue current medications as ordered by previous hospitalist nephrology following complete 5 days of IV ABX gen surgery on board continue on prograf and mycophenalate prednisone 5 mg daily' will need close f/u with transplant team after dc advance diet per surgery PDMP PDMP Reviewed: Not Reviewed Attestations 2 Medical Necessity Statement*: plan for dc in am Diagnoses Acute kidney injury superimposed on CKD N17.9; N18.9 Accelerated hypertension I10 Acute cholangitis K83.09 Nausea and vomiting R11.2 Renal transplant recipient Z94.0 Moderate aortic valve stenosis I35.0 Immunosuppressed status D84.9 Uremia N19 High anion gap metabolic acidosis E87.29 Pancreas transplanted Z94.83
--- NOTE | 2025-06-02 14:48 | P.PN_ITS ---
Subjective 2 Subjective: no new c/o Medications: Reviewed: Yes Vitals/I&O/Wt Last Vital Signs Temp 97.4 F L 06/02/25 12:00 Pulse 57 L 06/02/25 14:00 Resp 12 06/02/25 14:00 BP 107/60 06/02/25 14:00 Pulse Ox 99 06/02/25 14:00 O2 Del Method Room Air 06/02/25 14:00 06/01/25 06/02/25 06/02/25 22:59 06:59 14:59 Intake Total 640 / 1790 290 / 2080 750 / 750 Output Total 250 / 250 150 / 400 Balance 390 / 1540 140 / 1680 750 / 750 Weight last 48 hrs Weight 52.617 kg Weight 52 kg Weight 52 kg Physical Exam 2 Narrative: Patient is awake alert, no distress, on room air No JVD PERRLA S1-S2 regular rate and rhythm Lungs with decreased breath sounds bilaterally Abdomen soft nontender Extremities no pedal edema Skin no rash Urinary Catheter Management: Hackett: Cath Placed During This Visit: yes Reason for Continuing Indwelling Catheter: Accurate Measurement of Urinary Output in Critically Ill Patients Urinary Catheter Date of Insertion: 05/28/25 Urinary Catheter Time of Insertion: 21:10 Data 06/02/25 04:55 06/02/25 04:55 A&P Assessment and plan 1. ESRD (end stage renal disease): Plan: 1. CKD stage V progressed to ESRD: Patient s/p failed renal transplant , Now has uremic symptoms including severe fatigue, nausea vomiting and poor appetite. - s/p tunneled catheter placement and HD initiated -HD X 2 sessions , , low BFR to prevent dialysis disequilibrium - Next hD today 2. Metabolic acidosis, in the setting of advanced CKD, improved after HD initiation 3. Hypertension: Blood pressure poorly controlled, reevaluate after hemodialysis ,was on nitro drip , titrating oral meds 4. Anemia: Hemoglobin 10.5, monitor 5. Status post renal transplant, currently on mycophenolate, tacrolimus and prednisone. - Will continue mycophenolate and tacrolimus, on IV Solu-Medrol which will be switched to prednisone @ DC Patient evaluated using audiovisual cart. Time spent 40 minutes. PDMP PDMP Reviewed: Not Reviewed Attestations 2 Medical Necessity Statement*: per medicine Coding Level of Care Code Acute Code for Chg Fwd Diagnoses ESRD (end stage renal disease) N18.6
--- NOTE | 2025-06-02 15:09 | PC.SOCIAL ---
IMM updated IMM dated and initialed, Copy placed in chart and copy given to patient
[2025-06-02] MEDS: heparin, porcine 1,000 unit/mL INJ 10 mL 10000 UNIT INTRACATH (16:05)
--- NOTE | 2025-06-02 18:09 | P.DS_ITS ---
Discharge Providers Date of Admission: 05/28/25 18:30 Date of Discharge: June 02, 2025 Attending Provider at Admission: Agustin Willis MD Attending Provider at Discharge: Suzanne Bledsoe MD Primary Care Provider: Ale Olivier MD Diagnoses at Discharge Discharge Diagnosis 1. ESRD (end stage renal disease): Reason for Visit Reason for Visit: N/V Blood Hospital Course Hospital Course Patient presented to the hospital with BRYNN on CKD. 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 There was also suspicion of acute cholangitis however due to absence of symptoms 5 days of antibiotics IV were given to the patient per general surgery recommendations. She did not have any symptoms from this. Patient's medications were adjusted during hospital stay and she was discharged home on 5 of prednisone and to follow-up with her transplant team after discharge. She states she has an upcoming appointment next week with Dr. Reddy Veliz at [facility]. Patient blood pressure has been stable. Medication reconciliation was personally done with nephrology over the phone. Patient recommended to continue her immunosuppressive's. Patient will be discharged home in stable condition at this time. PT also evaluated the patient. Physical Exam Narrative: Patient is awake alert, no distress, on room air No JVD PERRLA S1-S2 regular rate and rhythm Lungs with decreased breath sounds bilaterally Abdomen soft nontender Extremities no pedal edema Skin no rash Urinary Catheter Management: Hackett: Cath Placed During This Visit: yes Reason for Continuing Indwelling Catheter: Accurate Measurement of Urinary Output in Critically Ill Patients Urinary Catheter Date of Insertion: 05/28/25 Urinary Catheter Time of Insertion: 21:10 Discharge Data Studies Completed and Pending Completed Studies During Hospitalization Category Date Time Status CT chest abdomen pelvis [[place] [id number] Cat Scan 05/28/25 18:00 Completed ] Stat MR MRCP [id number] Urgent MRI 05/29/25 08:00 Completed CV renal doppler [id number] Routine Ultrasound 06/01/25 11:31 [place] [id number] Routine Ultrasound 05/28/25 18:10 Completed CV. echo complete* [id number] Routine Ultrasound 05/28/25 18:10 Completed Pending at discharge Category Date Time Status Blood Culture Stat Lab 05/28/25 18:54 Results Complete Blood Count w/Auto AM LABS Lab 06/03/25 04:00 Ordered Comprehensive Metabolic Panel AM LABS Lab 06/03/25 04:00 Ordered Hepatitis C RNA Viral Load Qnt Routine Lab 05/28/25 22:03 Received Radiology Impressions Chest/Abdomen/Pelvis CT 05/28/25 18:00 IMPRESSION: Trace bilateral pleural effusions and anasarca suggesting fluid overload. IMPRESSION: 1. Moderate intra and extrahepatic ductal dilatation. Correlate with prior imaging and serum bilirubin. Consider MRCP if indicated. 2. Moderately distended gallbladder containing gallstones without obvious CT evidence of cholecystitis. 3. Left lower quadrant renal transplant. Questionable mild hydronephrosis. 4. Mild diffuse mesenteric edema, trace ascites, and anasarca. Cholangiopancreatography MRI 05/29/25 08:00 Impression: 1. Moderate intrahepatic biliary ductal dilatation with diffuse periportal edema. Dilatation of the common bile duct with bile duct wall thickening. Findings suspicious for ascending cholangitis. Recommend correlation with biliary function studies 2. No visualized obstructing common bile duct calculi although the common bile duct wall appears thickened 3. Hydropic gallbladder with gallbladder wall edema similar to the prior CT with a few small gallbladder calculi. This may be due to primary or acute cholecystitis versus reactive edema from cholangitis 4. Trace bilateral pleural effusions. 5. Atrophic kidneys. Notified Agsutin Willis MD at 05/29/2025 11:59 AM. C-Arm Fluoroscopy 05/29/25 13:44 IMPRESSION: Intraoperative imaging for RIGHT IJ dialysis catheter placement. Renal Ultrasound 06/01/25 11:31 IMPRESSION: 1. Severely atrophic [place] right kidney. The [place] left kidney is not well visualized. 2. Transplant kidney in the left lower quadrant demonstrates patency of the transplant renal artery and vein. There is no significant elevated resistive indices within the interlobar/arcuate arteries. There is however mild transplant hydronephrosis similar to CT abdomen and pelvis obtained on 05/28/2025. Laboratory Results WBC 8.00 10^3/uL (3.29-11.43) 06/02/25 04:55 RBC 2.59 10^6/uL (3.85-5.65) L 06/02/25 04:55 Hgb 7.80 g/dL (11.27-16.99) L 06/02/25 04:55 Hct 24.7 % (36-47) L 06/02/25 04:55 MCV 95.4 fl (85-98) 06/02/25 04:55 MCH 30.1 pg (27-33) 06/02/25 04:55 MCHC 31.6 g/dL (30-55) 06/02/25 04:55 RDW 15.9 % (12.1-15.1) H 06/02/25 04:55 Plt Count 183 10^3/cmm (157-399) 06/02/25 04:55 MPV 11.4 fL (7.4-10.4) H 06/02/25 04:55 Neut % (Auto) 71.4 % 06/02/25 04:55 Lymph % (Auto) 16.1 % 06/02/25 04:55 Wilson % (Auto) 11.1 % 06/02/25 04:55 Eos % (Auto) 0.4 % 06/02/25 04:55 Baso % (Auto) 0.0 % 06/02/25 04:55 Reticulocyte % (Auto) 1.2 % (0.5-2.0) 05/30/25 13:15 Neut # (Auto) 5.71 10^3/uL (1.8-7.7) 06/02/25 04:55 Lymph # (Auto) 1.3 10^3/uL (0.8-4.8) 06/02/25 04:55 Wilson # (Auto) 0.9 10^3/uL (0.2-0.9) 06/02/25 04:55 Eos # (Auto) 0.0 10^3/uL (0.0-0.8) 06/02/25 04:55 Baso # (Auto) 0.0 10^3/uL (0.0-0.1) 06/02/25 04:55 Nucleated RBC % (auto) 0.4 % 06/02/25 04:55 Nucleated RBCs # 0.0 /100WBC 06/02/25 04:55 Specimen Type Arterial 05/28/25 18:19 Sample Site Radial, left 05/28/25 18:19 ABG pH 7.38 (7.35-7.45) 05/28/25 18:19 ABG pCO2 25.3 mmHg (35-45) L 05/28/25 18:19 ABG pO2 88.4 mmHg (80.0-100.0) 05/28/25 18:19 ABG PO2/FiO2 Ratio 420 05/28/25 18:19 ABG HCO3 14.8 mmol/L (22-26) L 05/28/25 18:19 ABG O2 Saturation 97.4 05/28/25 18:19 ABG Base Excess -9.1 mmol/L (-2.0-2.0) L 05/28/25 18:19 Bebeto Test Pos 05/28/25 18:19 A-a O2 Gradient 3.6 mmHg (5-10) L 05/28/25 18:19 Hematocrit 29.4 % (37-47) L 05/28/25 18:19 Hgb O2 Saturation 96.2 % (95-100) 05/28/25 18:19 Carboxyhemoglobin 0.9 %THgb (0.4-20.1) 05/28/25 18:19 Methemoglobin 0.3 % (0.4-1.5) L 05/28/25 18:19 Total Hemoglobin 9.6 g/dL (12-16) L 05/28/25 18:19 Sodium 140.0 mmol/L (131-143) 05/28/25 18:19 Potassium 3.9 mmol/L (3.5-5.0) 05/28/25 18:19 Glucose 180.0 mg/dL (70-115) H 05/28/25 18:19 Ionized Calcium 1.1 mmol/L (1.1-1.4) 05/28/25 18:19 O2 Delivery Device room air 05/28/25 18:19 FiO2 21.0 % 05/28/25 18:19 Fusing Line Inspector ID [id number] 05/28/25 18:19 Sodium 127 mmol/L (136-145) L 06/02/25 04:55 Potassium 4.5 mmol/L (3.5-5.1) 06/02/25 04:55 Chloride 93 mmol/L (98-107) L 06/02/25 04:55 Carbon Dioxide 19 mmol/L (22-29) L 06/02/25 04:55 Anion Gap 19.5 (5-19) H 06/02/25 04:55 BUN 55 mg/dL (8-23) H 06/02/25 04:55 Creatinine 4.6 mg/dL (0.5-0.9) H 06/02/25 04:55 GFR Calculation 9.6 mL/min (90-130) L 06/02/25 04:55 Glucose 97 mg/dL (65-115) 06/02/25 04:55 POC Glucose 139 mg/dL (70-110) H 05/30/25 12:03 Calculated Osmolality 279 mOsm/kg (285-295) L 06/02/25 04:55 Lactic Acid 1.5 mmol/L (0.5-2.2) 05/28/25 18:54 Calcium 7.1 mg/dL (8.5-10.5) L 06/02/25 04:55 Phosphorus 4.0 mg/dL (2.5-4.5) 05/31/25 03:45 Magnesium 1.8 mg/dL (1.7-2.3) 05/31/25 03:45 Iron 55 ug/dL (37-145) 05/28/25 13:50 TIBC 270 mcg/dl 05/28/25 13:50 % Saturation 20.3 % (20-50) 05/28/25 13:50 Unsat Iron Binding 215 ug/dL (112-347) 05/28/25 13:50 Total Bilirubin 0.2 mg/dL (0.15-1.2) 06/02/25 04:55 AST 13 U/L (0-32) 06/02/25 04:55 ALT 12 U/L (0-33) 06/02/25 04:55 Alkaline Phosphatase 41 U/L (35-105) 06/02/25 04:55 Total Protein 4.1 g/dL (6.6-8.7) L 06/02/25 04:55 Albumin 2.5 g/dL (3.5-5.2) L 06/02/25 04:55 Globulin 1.6 g/dL (1.3-4.6) 06/02/25 04:55 Triglycerides 94 mg/dL (0-150) 05/29/25 04:11 Cholesterol 163 mg/dL (0-200) 05/29/25 04:11 LDL Cholesterol, Calc 97 mg/dL (50-129) 05/29/25 04:11 HDL Cholesterol 47 mg/dL (60-100) L 05/29/25 04:11 LDL/HDL Ratio 2.06 RATIO (0.00-3.22) 05/29/25 04:11 Cholesterol/HDL Ratio 3.47 mg/dL (0.0-4.40) 05/29/25 04:11 Lipase 11 U/L (13-60) L 05/28/25 13:50 Vitamin B12 1788 pg/mL (232-1245) H 05/28/25 18:54 Folate > 20.0 ng/mL (4.8-37.3) 05/29/25 04:11 Procalcitonin 0.35 ng/mL (0-0.5) 05/29/25 04:11 TSH 2.73 uIU/mL (0.27-4.20) 05/28/25 13:50 Urine Color Cancelled 05/28/25 21:16 Urine Color Yellow (Yellow) 05/28/25 21:16 Urine Appearance Cancelled 05/28/25 21:16 Urine Appearance Cloudy (CLEAR) A 05/28/25 21:16 Urine pH 6.0 (5-7) 05/28/25 21:16 Urine pH Cancelled 05/28/25 21:16 Ur Specific Seffner 1.018 (1.005-1.030) 05/28/25 21:16 Ur Specific Seffner Cancelled 05/28/25 21:16 Urine Protein 4+ (Negative) A 05/28/25 21:16 Urine Protein Cancelled 05/28/25 21:16 Urine Glucose (UA) Cancelled 05/28/25 21:16 Urine Glucose (UA) Negative (Normal) 05/28/25 21:16 Urine Ketones Cancelled 05/28/25 21:16 Urine Ketones Negative (Negative) 05/28/25 21:16 Urine Blood 1+ (Negative) A 05/28/25 21:16 Urine Blood Cancelled 05/28/25 21:16 Urine Nitrate Cancelled 05/28/25 21:16 Urine Nitrate Negative (Negative) 05/28/25 21:16 Urine Bilirubin Cancelled 05/28/25 21:16 Urine Bilirubin Negative (Negative) 05/28/25 21:16 Prot Sulfosalicylic Acd Cancelled 05/28/25 21:16 Urine Urobilinogen 0.2 mg/dL (Negative) 05/28/25 21:16 Urine Urobilinogen Cancelled 05/28/25 21:16 Ur Leukocyte Esterase Cancelled 05/28/25 21:16 Ur Leukocyte Esterase Trace (Negative) A 05/28/25 21:16 Urine RBC 6-10 /hpf (0-2) 05/28/25 21:16 Urine RBC Cancelled 05/28/25 21:16 Urine WBC 21-50 /hpf (0-5) H 05/28/25 21:16 Urine WBC Cancelled 05/28/25 21:16 Ur Eosinophil Smear Not Reportable 05/28/25 21:16 Ur Squamous Epith Cells 0-5 /hpf (0-5) 05/28/25 21:16 Ur Squamous Epith Cells Cancelled 05/28/25 21:16 Ur Transition Epith Cell Cancelled 05/28/25 21:16 Ur Renal Epithelial Cell Cancelled 05/28/25 21:16 Calcium Oxalate Crystal Cancelled 05/28/25 21:16 Uric Acid Crystals Cancelled 05/28/25 21:16 Triple Phos Crystals Cancelled 05/28/25 21:16 Other Crystals Cancelled 05/28/25 21:16 Amorphous Sediment Cancelled 05/28/25 21:16 Amorphous Sediment Not Reportable 05/28/25 21:16 Urine Bacteria Cancelled 05/28/25 21:16 Urine Bacteria None seen /hpf (NONE) 05/28/25 21:16 Hyaline Casts 2.87 /lpf 05/28/25 21:16 Hyaline Casts Cancelled 05/28/25 21:16 Fine Granular Casts Cancelled 05/28/25 21:16 Coarse Granular Casts Cancelled 05/28/25 21:16 RBC Casts Cancelled 05/28/25 21:16 Other Casts Cancelled 05/28/25 21:16 Urine Mucus Cancelled 05/28/25 21:16 Urine Trichomonas Cancelled 05/28/25 21:16 Urine Yeast Cancelled 05/28/25 21:16 Urine Sperm Cancelled 05/28/25 21:16 Ur Oval Fat Bodies Cancelled 05/28/25 21:16 Urine Eosinophils No eosinophils seen 05/28/25 21:16 Ur Random Sodium 34 mmol/L 05/28/25 21:16 Ur Random Potassium 41 mmol/L 05/28/25 21:16 Ur Random Chloride 27 mmol/L 05/28/25 21:16 Urine Creatinine 66 mg/dL (28-217) 05/28/25 21:16 Nasal MRSA (PCR) Not detected (Not Detecte) 05/28/25 21:16 Urine Opiates Screen Negative ng/mL (Negative) 05/28/25 21:16 Ur Barbiturates Screen Negative ng/mL (Negative) 05/28/25 21:16 Ur Phencyclidine Scrn Negative ng/mL (Negative) 05/28/25 21:16 Ur Amphetamines Screen Negative ng/mL (Negative) 05/28/25 21:16 U Benzodiazepines Scrn Negative ng/mL (Negative) 05/28/25 21:16 Urine Cocaine Screen Negative ng/mL (Negative) 05/28/25 21:16 Tacrolimus (LC/MS/MS) 1.0 mcg/L L 05/28/25 18:54 U Marijuana (THC) Screen Positive ng/mL (Negative) H 05/28/25 21:16 Hepatitis A IgM Ab Non-reactive (Nonreactive) 05/28/25 18:54 Hep Bs Antigen Non-reactive (Nonreactive) 05/29/25 04:11 Hep Bs Antibody < 3.5 (11.5-1000) L 05/29/25 04:11 Hep B Core Total Ab Non-reactive (Nonreactive) 05/28/25 18:54 Hepatitis C Antibody Reactive (Nonreactive) H 05/28/25 18:54 Vitals Last Vital Signs Temp 97.9 F 06/02/25 16:19 Pulse 56 L 06/02/25 16:19 Resp 14 06/02/25 16:19 BP 118/64 06/02/25 17:00 Pulse Ox 100 06/02/25 16:00 O2 Del Method Room Air 06/02/25 16:00 Discharge Plan Discharge Patient Disposition: Home Condition: Stable Prescriptions: New isosorbide mononitrate 60 mg Tablet Extended Release 24 Hr 60 mg PO 799,1999 Qty: 30 0RF hydralazine 100 mg tablet 100 mg PO TID Qty: 90 0RF clonidine HCl 0.1 mg Tablet 0.1 mg PO TID Qty: 90 0RF docusate sodium 100 mg Capsule 100 mg PO BID Qty: 60 0RF prednisone 5 mg tablet 5 mg PO DAILY Qty: 30 0RF Continued loperamide 2 mg capsule 2 mg PO TID PRN (Reason: Diarrhea) magnesium oxide 400 mg (241.3 mg magnesium) tablet 400 mg PO DAILY@1430 fluticasone propionate 50 mcg/actuation spray,suspension 1 spray INTRANASAL DAILY@2100 ascorbic acid (vitamin C) [Vitamin C] 500 mg Tablet 500 mg PO BID@0700,1730 aspirin 81 mg Tablet,Chewable 81 mg PO DAILY@2100 vitamin E acetate 200 unit Capsule 400 unit PO DAILY@0700 tacrolimus 0.5 mg capsule See Rx Instructions .ROUTE .COMPLEX Rx Instructions: TAKE 2 CAPSULES BY MOUTH EVERY MORNING AND TAKE 3 CAPSULES BY MOUTH EVERY EVENING cholecalciferol (vitamin D3) [Vitamin D3] 25 mcg (1,000 unit) Capsule 25 mcg PO DAILY mycophenolate sodium 180 mg tablet,delayed release (DR/EC) 180 mg PO QID Vitamin Plus Low Iron 27 mg iron- 1 mg tablet 27 tab PO DAILY losartan 50 mg tablet 100 mg PO DAILY Changed carvedilol 12.5 mg tablet 25 mg PO BID Qty: 180 3RF Rx Instructions: must administer with a meal/food Discontinued diphenhydramine HCl [Benadryl Allergy] 25 mg Tablet 25 mg PO TID PRN (Reason: Allergy Symptoms) Discharge Order = DC NOW: Discharge Order (Routine); Ordered 06/03/25 Ordered By: Suzanne Bledsoe Other Ambulatory Orders: DME: Cane/ Crutches (Order) Location: None Selected Ordered By: Suzanne Bledsoe Complete Blood Count w/Auto (Routine) Timeframe: 3 Days Location: Determined by Patient Ordered By: Suzanne Bledsoe Comprehensive Metabolic Panel (Routine) Timeframe: 3 Days Facility: [facility] - Location: Lab - Main Lab Ordered By: Suzanne Bledsoe Referrals: ethan veliz [Other, Transplant Surgery] - 06/10/25 Referral Note: Please keep your appoinemnt on 06/10 If you have any issues or concerns please report to the closest Emergency room Ale Olivier MD [Primary Care Provider, Family Practice] - 06/04/25 2:15 pm Referral Note: We have arranged your follow up care with your Primary care provider on 06/04 and 2:15 pm if you are not able to keep this appointment please call them to arrange your care. Discharge Diet: As Directed Discharge Activity: As per PT/OT instructions Patient Instructions: Acute Wound Care (DC), End Stage Kidney Disease (DC), Opioid Safety, Post Anesthesia Care, Patient Portal & Darryn Instructions Activity Restrictions/Additional Instructions: [facility] [address] [facility] Be there at 10AM on 05/31/2025 Bring insurance cards and home medications Discharge Attestations Time Spent in Discharge Care*: less than 30 min Quality Metrics Clinical Quality Measures [ No reported AMI, CVA or VTE this stay] Coding Level of Care Code Acute Code for Chg Fwd Diagnoses ESRD (end stage renal disease) N18.6
[2025-06-02] MEDS: morphine 4 mg/mL SDV 1 mL 2 MG IVP (19:12)
[2025-06-03] VITALS (12 sets, daily range): BP systolic 104–139; BP diastolic 56–78; PULSE 63–69; RESP 12–18; TEMP 36.6–37.1; O2SAT 100
[2025-06-03 03:47] LABS: Hematocrit 24.7 % (36-47); Hemoglobin 8.00 g/dL (11.27-16.99); Mean Corpuscular HGB Conc 32.4 g/dL (30-55); Mean Corpuscular Hemoglobin 30.1 pg (27-33); Mean Corpuscular Volume 92.9 fl (85-98); Nucleated Red Blood Cells % 0.4 %; Platelet Count 204 10^3/cmm (157-399); Red Blood Count 2.66 10^6/uL (3.85-5.65); White Blood Count 11.75 10^3/uL (3.29-11.43)
[2025-06-03 04:09] LABS: Alanine Aminotransferase 12 U/L (0-33); Albumin Level 2.6 g/dL (3.5-5.2); Alkaline Phosphatase 45 U/L (35-105); Anion Gap 15.0 (5-19); Aspartate Amino Transferase 18 U/L (0-32); Blood Urea Nitrogen 31 mg/dL (8-23); Calcium 7.3 mg/dL (8.5-10.5); Carbon Dioxide 22 mmol/L (22-29); Chloride 97 mmol/L (98-107); Creatinine Clr Calc Pharmacy 18.7480; Globulin 1.9 g/dL (1.3-4.6); Glucose 136 mg/dL (65-115); Osmolality Calculated 279 mOsm/kg (285-295); Potassium 4.0 mmol/L (3.5-5.1); Sodium 130 mmol/L (136-145); Total Protein 4.5 g/dL (6.6-8.7)
[2025-06-03] MEDS: piperacillin-tazobactam 3.375 GM in sodium chloride 0.9% (plus) 50 ML IV (08:12)
[2025-06-03] MEDS: heparin 5,000 unit/mL INJ 1 mL 5000 UNIT SUBCUT (08:14)
[2025-06-03] MEDS: pantoprazole 40 mg SDV IVP (08:14)
[2025-06-03] MEDS: MYCOPHENOLATE SODIUM 180 MG 180 EACH PO (08:16)
--- NOTE | 2025-06-03 10:21 | PC.NURSE ---
Patient received DC orders. All prescriptions sent to preferred pharmacy. All IVs removed. Follow up appointments arranged in DC plan. All patient belongings and home meds sent with patient.
[2025-06-06 15:30] LABS: HEP C RNA Viral Load Quant <1.18 NOT DETECTED Log IU/mL (NOT DETECTED); HEP C RNA Viral Load Quant <15 NOT DETECTED IU/mL (NOT DETECTED)
== END 2025-06-03 11:05 | disposition home or self-care (01) | DRG 674 ==
LOC: ER 17:48 → ER IP 18:31 → ICU 20:05
PROVIDERS: Emergency Medicine; Hospitalist; Student in an Organized Health Care Education/Training Program; Admitting Provider Student in an Organized Health Care Education/Training Program; Emergency Provider Family Medicine; PCP Family Medicine; Visit Provider Internal Medicine
DX: T86.12 Kidney transplant failure (principal); D84.9 Immunodeficiency, unspecified; E87.20 Acidosis, unspecified; N17.9 Acute kidney failure, unspecified; Z94.83 Pancreas transplant status; K83.09 Other cholangitis; N18.6 End stage renal disease; D63.1 Anemia in chronic kidney disease; I16.0 Hypertensive urgency; I35.0 Nonrheumatic aortic (valve) stenosis; E86.0 Dehydration; B19.20 Unspecified viral hepatitis C without hepatic coma; F17.200 Nicotine dependence, unspecified, uncomplicated; I12.9 Hypertensive chronic kidney disease with stage 1 through stage 4 chronic kidney disease, or unspecified chronic kidney disease; Z79.82 Long term (current) use of aspirin; Z79.899 Other long term (current) drug therapy; Z88.5 Allergy status to narcotic agent; Z88.8 Allergy status to other drugs, medicaments and biological substances; Z91.018 Allergy to other foods; Z90.710 Acquired absence of both cervix and uterus; Y83.0 Surgical operation with transplant of whole organ as the cause of abnormal reaction of the patient, or of later complication, without mention of misadventure at the time of the procedure; Z79.52 Long term (current) use of systemic steroids
CPT/HCPCS: 36415; 36416; 36600; 51702; 71250; 74176; 74181; 76000; 77001; 80051; 80053; 80061; 80197; 80306; 81001; 82330; 82436; 82570; 82607; 82746; 82805; 82962; 83540; 83550; 83605; 83690; 83735; 84100; 84133; 84145; 84300; 84443; 85014; 85018; 85025; 85045; 85999; 86403; 86705; 86706; 86709; 86803; 87040; 87077; 87086; 87186; 87340; 87449; 87522; 90935; 93005; 93306; 93970; 93975; 94664; 96365; 96366; 96367; 96372; 96375; 97116; 97162; 99291; C1750; J0330; J0360; J0780; J1100; J1644; J2270; J2404; J2405; J2470; J2543; J2704; J2919; J3490; J7030; J7070; J7507; J9999; Q3014; Q5105

== ENCOUNTER 2025-06-18 12:44 | Emergency (ER) | payer OTHER, MEDICAID, SELFPAY ==
--- NOTE | 2025-06-18 12:47 | XR_ITS ---
WS: [id number] Portable AP upright chest, 06/18/2025 Clinical Data: hypertension Comparison: CT chest abdomen pelvis, 05/28/2025, 2 view chest, 11/17/2010 Findings: No nodules or masses are seen. There are moderate bilateral pleural effusions. There are bilateral lower lobe opacities which may represent atelectasis, consolidation and/or effusion. There is a right dialysis catheter which ends in the superior vena cava. The heart is normal. The pulmonary vascularity is not increased. No pneumothorax is seen. The aortic arch shows mild calcification and tortuosity. XR/XR chest 1V portable [id number] Impression: 1. Moderate bilateral pleural effusions. 2. Bilateral lower lobe opacities. 3. Atherosclerosis.
--- NOTE | 2025-06-18 12:47 | ECG_ITS ---
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 Measurements Intervals [place] Rate: 77 P: 53 MS: 149 QRS: 35 QRSD: 80 T: 71 QT: 396 QTc: 450 Interpretive Statements SINUS RHYTHM Compared to ECG 05/28/2025 15:05:22 No significant changes Electronically Signed On 06-18-2025 22:10:55 CDT by Jae Murillo M.D. [email or web address]
--- OUTSIDE RECORDS SUMMARY | 2025-06-18 12:58 | XMS_ITS | Encounter Summary ---
Author Organization [facility] Address [address] [address] Phone Care Team Providers Care Tibco Developer Name Role Phone Unavailable Primary Care Provider Unavailabl e Reason for Referral * Consultation (Routine) - Closed Specialty Diagnoses / Procedures Referred By Contac t Referred To Contact Nephrology Diagnoses Kidney transplant status Pancreas transplant status (HCC) Chronic kidney disease, Stage V (HCC) Reddy Veliz MD [address] [facility] [address] [place] [address] Phone: tel: fax: Jerilyn Mike MD [address] [address] Phone: tel: fax: Referral ID Status Reason Start Date Expiration Date V isits Requested Visits Authorized [id number] Closed Consult and Treat 05/05/2025 05/05/2026 1 1 Encounter Details Date Type Department Care Team (Latest Contact Info) Description 05/05/2025 Transcribe Orders [facility] [address] [address] Reddy Veliz MD [address] [facility] [address] [place] [address] [place] [address] Chronic kidney disease, Stage V [...] as of this encounter Plan of Treatment Scheduled Referrals Name Type Priority Associated Diagnoses [...]
--- OUTSIDE RECORDS SUMMARY | 2025-06-18 12:58 | XMS_ITS | Clinical Summary ---
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 Active aspirin (ST FELA) 81 MG EC tablet Take 81 mg by mouth in the morning. Active carvedilol (COREG) 12.5 MG tablet Take 12.5 mg by mouth in the morning and 12.5 mg in the evening. Take with meals. 04/21/20 25 Active cholecalcifero l (Vitamin D-[address]) 25 MCG (1000 UT) tablet Take 1,000 Units by mouth in the morning. Active diphenhydrAMIN E (Benadryl Allergy) 25 MG tablet Take 25 mg by mouth Active Ferrous Sulfate (IRON PO) Take 1 tablet by mouth in the morning. 07/15/20 24 Active fluticasone (FLONASE) 50 MCG/ACT nasal spray Administer 1 spray into each nostril 1 (one) time each day 02/25/20 17 Active loperamide (IMODIUM) 2 MG capsule Take 2 mg by mouth in the morning and 2 mg at noon and 2 mg in the evening. 02/27/20 25 Active losartan (COZAAR) 50 MG tablet Take 50 mg by mouth in the morning and 50 mg in the evening. Active magnesium oxide (MAG-OX) 400 MG tablet Take 1 tablet by mouth 1 (one) time each day 08/26/20 24 Active mycophenolate (MYFORTIC) 180 MG EC tablet Take 180 mg by mouth in the morning and 180 mg at noon and 180 mg in the evening and 180 mg before bedtime. Active nitroglycerin (NITROSTAT) 0.[address] 0.4 mg under the tongue every 5 (five) minutes if needed Active tacrolimus (PROGRAF) 0.5 MG capsule Take 1.5 mg by mouth in the morning and 1.5 mg in the evening. 05/28/20 25 Active 27-1 MG tablet Take 1 tablet by mouth 1 (one) time each day 04/19/20 25 Active alpha tocopherol (VITAMIN E) 200 units capsule Take 200 Units by mouth 1 (one) time each day Active losartan (COZAAR) 50 MG tablet Take 100 mg by mouth in the morning. 05/26/20 025 Discontinued Active Problems No known active problems Encounters Date Type Department Care Team Description 06/16/2025 Treatment 8[facility], 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 [address] [place] [address] Ayla Mueller MA 05/28/2025 Documentation Only [facility], [facility] [address] [place] [phone] She Barajas MA 05/05/2025 Office Communication [facility] [address] [place] [phone] Jerilyn Mike MD 05/05/2025 Transcribe Orders [facility] [address] [place] [phone] Reddy Veliz MD Chronic kidney disease, Stage V (HCC) (Primary Dx); Kidney transplant status; Pancreas transplant status (HCC) from Last 3 Months Social History Tobacco Use Types Packs/Day Years Used Date Smoking Tobacco: Former Cigarettes Smokeless Tobacco: Never Tobacco Cessation:Counseling Given: Not Answered Alcohol Use Standard Drinks/Week Comments Not Currently 0 (1 standard drink = 0.6 oz pur e alcohol) Comments Unknown Sex and Gender Information Value Date Recorded Sex Assigned at Not on file Legal Sex Female 9:55 AM EDT Gender Identity Not on file Sexual Orientation Not on file Last Filed Vital Signs Vital Sign Reading Time Taken Comments Blood Pressure 100/56 06/03/2025 1:57 PM CDT Pulse 69 06/03/2025 1:57 PM CDT Temperature - - Respiratory Rate - - Oxygen Saturation 97% 06/03/2025 1:57 PM CDT Inhaled Oxygen Concentration - - Weight - - Height - - Body Mass Index - - Plan of Treatment Health Maintenance Due Date Last Done Comments Breast Cancer Screening 1960 Hepatitis B Vaccine (1 of 5 - Risk Dialysis 4-dose series) 1981 08/11/2020 Colorectal Cancer Screening: Annual FOBT 2010 Colorectal Cancer Screening: Colonoscopy 2010 Colorectal Cancer Screening: Sigmoidoscopy 2010 Diabetes: Ophthalmology Exam 05/05/2025 Diabetes: Pedal Pulse Checked 05/05/2025 Diabetes: Sensory Foot Exam 05/05/2025 Diabetes: Visual Foot Exam 05/05/2025 Influenza Vaccine (#1) 2025 , 07/09/2020, 05/29/2019, Additional history exists Pneumococcal Vaccine: 50+ Ye ars (3 of 3 - PCV20 or PCV21) 07/09/2025 07/09/2020, 08/07/2015 Diabetes: Hemoglobin A1C 07/22/2025 04/21/2025, 04/08 Procedures Procedure Name Priority Date/Time Associated Diagnosis Comments HD KINETICS Routine 06/11/2025 POST CHEMISTRY Routine 06/11/2025 IMMUNO CHEMISTRY Routine 06/11/2025 CHEMISTRY Routine 06/11/2025 CHEMISTRY Routine 06/11/2025 TRACE ELEMENTS Routine 06/11/2025 HEMATOLOGY Routine 06/11/2025 TRACE ELEMENTS Routine 06/04/2025 HD KINETICS Routine 06/04/2025 HEMATOLOGY Routine 06/04/2025 CHEMISTRY Routine 06/04/2025 POST CHEMISTRY Routine 06/04/2025 IMMUNO CHEMISTRY Routine 06/04/2025 SPECIAL CHEMISTRY Routine 06/04/2025 CHEMISTRY Routine 06/04/2025 CBC (INCLUDES DIFF/PLT) (EXTERNAL LAB ENTRY) Routine 05/26/2025 COMPREHENSIVE METABOLIC PANEL (CMP) (EXTERNAL LAB ENTRY) Routine 05/26/2025 CBC (INCLUDES DIFF/PLT) (EXTERNAL LAB ENTRY) Routine 04/24/2025 COMPREHENSIVE METABOLIC PANEL (CMP) (EXTERNAL LAB ENTRY) Routine 04/24/2025 from Last 3 Months Results * HD KINETICS (06/11/2025) Only the most recent of2 resultswithin the time period is included. % Urea Reduction 78 65 - 80 % [facility] 06/11/2025 06/12/2025 12: 02 PM CDT Narrative [facility] - 06/13/2025 Unless otherwise specified, test(s) performed at: [facility], [address] [place], [place] [id number] ANAESTHESIOLOGIST: Baudilio Otoole M.D. For any questions, please call customer service at FREQUENCY:MONTHLY Resulting Agency Comment Specimen source: Plasma us Jerilyn Mike MD LAB BLOOD ORDERABLES Final Re sult Performing Organization Address [facility] de Phone Number [facility] See order comments or contact performing lab Unknown, [place] * POST CHEMISTRY (06/11/2025) Only the most recent of2 resultswithin the time period is included. BUN Post Dialysis 11 6 - 19 mg/dL [facility] 06/11/2025 06/12/2025 12: 02 PM CDT Narrative [facility] - 06/12/2025 Unless otherwise specified, test(s) performed at: [facility], [address] [place] [id number] ANAESTHESIOLOGIST: Baudilio Otoole M.D. For any questions, please call customer service at FREQUENCY:MONTHLY Resulting Agency Comment Specimen source: Plasma us Jerilyn Mike MD LAB BLOOD ORDERABLES Final Re sult Performing Organization Address [facility] de Phone Number [facility] See order comments or contact performing lab Unknown, [place] * IMMUNO CHEMISTRY (06/11/2025) Only the most recent of2 resultswithin the time period is included. Hep B Surface Ag Negative Negative [facility] 06/11/2025 06/12/2025 4:5 0 PM CDT Narrative Resulting Agency Comment Specimen source: Serum us Jerilyn Mike MD LAB BLOOD ORDERABLES Final Re sult Performing Organization Address [facility] Co de Phone Number [facility] See order comments or contact performing lab Unknown, [place] * TRACE ELEMENTS (06/11/2025) Only the most recent of2 resultswithin the time period is included. Pathologist [facility] Aluminum <5 0 - 10 mcg/L [facility] Comment: This test was developed and its performance characteristics determined by [facility]. It has not been cleared or approved by the FDA. The laboratory is regulated under CLIA as qualified to perform high complexity testing. This test is used for clinical purposes. It should not be regarded as investigational or for research. 06/11/2025 06/12/2025 10: 08 AM CDT Narrative [facility] - 06/12/2025 Unless otherwise specified, test(s) performed at: [facility], [address] [place] [address] ANAESTHESIOLOGIST: Baudilio Otoole M.D. For any questions, please call customer service at FREQUENCY:MONTHLY Resulting Agency Comment Specimen source: Serum Jerilyn Mike MD LAB BLOOD ORDERABLES Final Re sult [facility] See order comments or contact performing lab Unknown, [place] * (ABNORMAL) HEMATOLOGY (06/11/2025) Only the most recent of2 resultswithin the time period is included. Pathologist [facility] Neutrophils 82.9(H) 40.0 - 75.0 % [facility] Lymphocytes Relative 7.8(L) 19.0 - 48.0 % [facility] Monocytes 4.9 3.0 - 10.0 % [facility] Eosinophils Relative 2.3 0.0 - 7.0 % [facility] Basophils Relative 0.5 0.0 - 1.5 % [facility] CADENCE 1.6 0.0 - 4.0 % [facility] WBC 10.70 4.80 - 10.80 1000/mcL [facility] RBC 2.65(L) 4.20 - 5.40 mill/mcL [facility] Hematocrit 25.8(L) 37.0 - 47.0 % [facility] MCV 98 80 - 100 fl [facility] MCH 30.2 27.0 - 31.0 pg [facility] MCHC 31.0 30.0 - 36.0 g/dL [facility] RDW 17.4(H) 11.5 - 14.5 % [facility] Hemoglobin 8.0(L) 12.0 - 16.0 g/dL [facility] Hemoglobin x 3 24(L) 36.0 - 48.0 % [facility] Platelets 244 130 - 400 1000/mcL [facility] 06/11/2025 06/12/2025 11: 13 AM CDT Narrative [facility] - 06/12/2025 Unless otherwise specified, test(s) performed at: [facility], [address] [place] [id number] ANAESTHESIOLOGIST: Baudilio Otoole M.D. For any questions, please call customer service at FREQUENCY:MONTHLY Resulting Agency Comment Specimen source: Blood Jerilyn Mike MD LAB BLOOD ORDERABLES Final Re sult [facility] See order comments or contact performing lab Unknown, [place] * (ABNORMAL) [facility] Chemistry (06/11/2025) Only the most recent of4 resultswithin the time period is included. Ferritin 284 10 - 291 ng/mL [facility] BUN 50(H) 6 - 19 mg/dL [facility] Creatinine 3.88(H) 0.60 - 1.30 mg/dL [facility] BUN/Creatinine Ratio 12.9 10.0 - 20.0 [facility] Bicarbonate (CO2) 24 22 - 29 mEq/L [facility] Calcium 7.6(L) 8.4 - 10.2 mg/dL [facility] Corrected Calcium 8.3(L) 8.4 - 10.2 mg/dL [facility] Comment: Corrected Calcium is not equivalent to measured Ionized Calcium. Phosphorus 3.9 2.6 - 4.5 mg/dL [facility] Calcium Phosphorus Product 30 0 - 54 [facility] Calcium Phosporus Product, Cor 32 0 - 54 [facility] Alkaline Phosphatase 60 35 - 104 U/L [facility] Total Protein 5.2(L) 6.0 - 8.5 g/dL [facility] Albumin 3.1(L) 3.5 - 5.2 g/dL [facility] Globulin, Total 2.1 2.0 - 4.0 g/dL [facility] A/G Ratio 1.5 1.0 - 2.0 [facility] Magnesium 2.0 1.6 - 2.6 mg/dL [facility] Iron 42 30 - 160 mcg/dL [facility] UIBC 187 155 - 355 mcg/dL [facility] TIBC 229 185 - 515 mcg/dL [facility] Iron Saturation (TSat) 18(L) 20 - 55 % [facility] Sodium 137 136 - 145 mEq/L [facility] Potassium 5.3(H) 3.5 - 5.1 mEq/L [facility] Chloride 102 96 - 108 mEq/L [facility] 06/11/2025 06/12/2025 4:5 0 PM CDT Narrative [facility] - 06/13/2025 Unless otherwise specified, test(s) performed at: [facility], [address] [place] [address] ANAESTHESIOLOGIST: Baudilio Otoole M.D. For any questions, please call customer service at FREQUENCY:MONTHLY Resulting Agency Comment Specimen source: Serum Jerilyn Mike MD LAB BLOOD ORDERABLES Edited R esult - Final Performing Organization Address [facility] Co de Phone Number [facility] See order comments or contact performing lab Unknown, [place] * (ABNORMAL) SPECIAL CHEMISTRY (06/04/2025) Folate 12.8 ng/mL [facility] Comment: Reference Range: Deficient: <3.4 ng/mL Indeterminate: 3.4-5.4 ng/mL Normal: >5.4 ng/mL Vitamin B-12 1,333(H) 211 - 911 pg/mL [facility] Vitamin D, 25-OH, Total 25.1(L) 30.0 - 100.0 ng/mL [facility] Comment: Please Note: Effective August 07, 2023, the methodology for this test has changed to the [facility]. 06/04/2025 06/05/2025 9:0 4 AM CDT Narrative Resulting Agency Comment Specimen source: Serum us Jerilyn Mike MD LAB BLOOD BANK TEST ORDERABLE S Final Result Performing Organization Address City/[facility]/ZIP Co de Phone Number [facility] See order comments or contact performing lab Unknown, [place] * Comprehensive Metabolic Panel (CMP) (05/26/2025) Only the most recent of2 resultswithin the time period is included. Glucose 97 mg/dL BUN 106 mg/dL Creatinine 6.23 mg/dL Sodium 137 mEq/L Potassium 4.6 mEq/L Chloride 108 Carbon Dioxide 18 mmol/L Calcium 8.0 mg/dL Albumin (Blood) 3.7 g/dL AST (SGOT) 17 U/L ALT (SGPT) 15 U/L Alkaline Phosphatase 64 U/L Total Bilirubin 0.30 MG/DL eGFR 7 Total Protein, Serum 6.5 Anion Gap 11 Blood 05/26/2025 [facility] External Provider LAB BLOOD ORDERABLES Final Result * CBC (Includes Diff/Plt) (External Lab) (05/26/2025) Only the most recent of2 resultswithin the time period is included. WBC 5.00 K/uL Red Blood Cell Count 3.03 Hemoglobin 9.1 g/dL Hematocrit 28.0 % MCV 92.5 MCH 30.1 MCHC 32.6 RDW 18.1 Platelet Count 253 MPV 9.6 Absolute Neutrophils 3.40 Absolute Lymphocytes 1.00 Absolute Monocytes 0.40 Absolute Eosinophils 0.10 Absolute Basophils 0.00 Neutrophils 67.9 K/uL Lymphocytes 20.7 Monocytes 8.7 Eosinophils 1.9 Basophils 0.8 Blood 05/26/2025 [facility] External Provider LAB BLOOD ORDERABLES Final Result from Last 3 Months Insurance [facility] Medicare Medicaid [place] ([id number])
--- OUTSIDE RECORDS SUMMARY | 2025-06-18 12:58 | XMS_ITS | Encounter Summary ---
Author Organization [facility], [facility] Address [address] [place] [address] Phone Care Team Providers Care Director Surgical Name Role Phone Unavailable Primary Care Provider Unavailabl e Encounter Details Date Type Department Care Team (Late st Contact Info) Description 06/16/2025 [facility] [address] [facility] [address] [place] [address] Dana Latif NP [address] [place] [address] End stage renal disease; Dependence on renal dialysis Social History Tobacco Use Types Packs/Day Years Used Date Smoking Tobacco: Former Cigarettes Smokeless Tobacco: Never Alcohol Use Standard Drinks/Week Comments Not Currently 0 (1 standard drink = 0.6 oz pur e alcohol) Comments Unknown Sex and Gender Information Value Date Recorded Sex Assigned at Not on file Legal Sex Female 9:55 AM EDT Gender Identity Not on file Sexual Orientation Not on file documented as of this encounter Miscellaneous Notes * Dialysis Note - Dana Latif NP - 06/16/2025 12:00 AM CDT Patient: Yu Nunez : 1960 Note Type: Dialysis Rounds-Comp Service Date: 06/16/2025 This patient was personally seen [id number] for a complete visit as part of routine monthly dialysis care for end stage renal disease. Attending Drying Unit Felting Machine Operator: ORLANDO RABAGO Dialysis Location: [facility] Schedule: Shift: 1 OVERVIEW Patient is not stable. COMMENTS: BP elevated ?200/100. Only taking carvedilol and losartan Reviewed records, reviewed history. HOME MEDICATIONS Medications reviewed. COMMENTS: Restart hydralazine and imdur as ordered. DIALYSIS PRESCRIPTION Treatment Data Treatment Date: 06/16/2025 started at: 8:50 AM Dialysate / Machine Temp (prescribed): 37.0*C Dialysate / Machine Temp (actual): 36.6*C BFR (prescribed): 400 BFR (actual): 400 DFR (prescribed): Autoflow 2.0 DFR (actual): 800 Prescribed Time: 03:30 EDW (kg): 53.7 Dialyzer: 160NRe Optiflux Dialysate: 3.0 K, 2.5 Ca, 1.0 Mg, 100 Dextrose (G3251) Sodium: 138 Bicarb: 32 Pre Dialysis Vitals Pre BP Sit: 235/112 Pre Wt (kg): 56.4 EDW Deviation (kg): 2.7 Temp: 97.6*F Current Dialysis Vitals BP Sit: 218/108 AP/SENIOR ACCOUNT EXECUTIVE: 145/112 Pulse: 67 TREATMENT MEDICATIONS ORDERS Heparin Sodium (Porcine) 1,000 Units/mL Catheter Lock Arterial 2500 units Arterial Red Port Every Treatment Post Dialysis 06/04/2025 - 06/03/2026 Heparin Sodium (Porcine) 1,000 Units/mL Catheter Lock Venous 2500 units Venous Blue Port Every Treatment Post Dialysis 06/04/2025 - 06/03/2026 Heparin Sodium (Porcine) 1,000 Units/mL Systemic 1000 units IVP Every Treatment 06/04/2025 - 06/03/2026 Iron Sucrose (Venofer) 100 mg IVP Every Treatment 06/09/2025 - 06/30/2025 Vitamin D (Calcitriol) Oral 0.25 mcg ORAL Every Treatment 06/11/2025 - 06/10/2026 BP AND FLUID ASSESSMENT High blood pressure. COMMENTS: Adjusted therapies to restart pre hospitalization therapies, will stage initiation to appropriately move forward with controlling BP Post BP Sit 194/103 - 06/13/2025 159/85 - 06/11/2025 174/91 - 06/09/2025 Post Wt (kg) 53.7 - 06/13/2025 54.4 - 06/11/2025 54.6 - 06/09/2025 EDW (kg) 54.4 - 06/13/2025 55.2 - 06/11/2025 55.2 - 06/09/2025 Deviation (kg) -0.7 - 06/13/2025 -0.8 - 06/11/2025 -0.6 - 06/09/2025 ADEQUACY ASSESSMENT % Urea Reduction 78 (06/11/25) 77 (06/04/25) BUN 50 (06/11/25) 47 (06/04/25) BUN Post Dialysis 11 (06/11/25) 11 (06/04/25) Creatinine 3.88 (06/11/25) 4.37 (06/04/25) Bicarbonate (CO2) 24 (06/11/25) 22 (06/04/25) Sodium 137 (06/11/25) 127 (06/04/25) Target met. Missed Treatments 0 - Last 30 days 0 - Last 60 days ACCESS ASSESSMENT Vascular access examined. CVCatheter Tunneled Neck Active (In Use) - 06/02/2025 Placed - 05/29/2025 ANEMIA ASSESSMENT Hemoglobin 8.0 (06/11/25) 9.0 (06/04/25) Iron Saturation (TSat) 18 (06/11/25) 43 (06/04/25) Ferritin 284 (06/11/25) 135 (06/04/25) Iron 42 (06/11/25) 90 (06/04/25) TIBC 229 (06/11/25) 208 (06/04/25) MCV 98 (06/11/25) 95 (06/04/25) Folate 12.8 (06/04/25) Vitamin B-12 1,333 (06/04/25) Platelets 244 (06/11/25) 233 (06/04/25) Anemia targets not met. Hemoglobin not at target. CHRISTEL adjusted per protocol. COMMENTS: Initiate CHRISTEL therapies per algorithm. BMM ASSESSMENT Calcium 7.6 06/11/25 7.6 06/04/25 Corrected Calcium 8.3 06/11/25 8.6 06/04/25 Phosphorus 3.9 06/11/25 4.4 06/04/25 Calcium Phosphorus Product 30 06/11/25 33 06/04/25 PTH 892 06/11/25 913 06/04/25 Vitamin D, 25-OH, Total 25.1 06/04/25 Magnesium 2.0 06/11/25 1.9 06/04/25 Alkaline Phosphatase 60 06/11/25 45 06/04/25 Aluminum ?5 06/11/25 ?5 06/04/25 PTH elevated. Phosphorus controlled. Referred to mannequin wig maker for further counseling. Calcium low. NUTRITION ASSESSMENT Albumin 3.1 06/11/25 2.8 06/04/25 Potassium 5.3 06/11/25 4.2 06/04/25 Albumin not at goal. Potassium controlled. Referred to mannequin wig maker for further counseling. PHYSICAL EXAM Exam not performed. ADDITIONAL LABS WBC 10.70 (06/11/25) 15.37 (06/04/25) Hepatitis B Surface Ab ?10 (06/04/25) Signed by: DANA LATIF NP on 06/16/2025 at 10:30:30 AM Transcribed by: DANA LATFI NP on 06/16/2025 at 10:30:30 AM documented in this encounter Plan of Treatment Not on file documented as of this encounter Visit Diagnoses Diagnosis End stage renal disease Dependence on renal dialysis documented in this encounter
[2025-06-18 13:05] VITALS: BP 199/100; PULSE 79; RESP 18; TEMP 36.7; O2SAT 93; BMI 21.2
--- NOTE | 2025-06-18 13:08 | CT_ITS ---
WS: [id number] CT HEAD TECHNIQUE: Noncontrast CT of the head obtained from the skullbase to the vertex. CLINICAL INFORMATION: hypertension COMPARISON: MRI 2022 DLP: 1041.[address] scans at [facility] use at least one of these dose optimization techniques: automated exposure control; mA and/or kV adjustment per patient size (includes targeted exams where dose is matched to clinical indication); or iterative reconstruction. FINDINGS: No evidence of intracranial hemorrhage or mass effect. Ventricular system and basal cisterns are patent. Advanced small vessel changes with moderate parenchymal volume loss. No extra-axial fluid collections. No evidence of mass or mass effect. Vascular calcification. Paranasal sinuses and mastoid air cells are well aerated. Opacification RIGHT mastoid air cells and middle ear. .Normal visualized soft tissues. CT/CT head wo con* [id number] IMPRESSION: 1. No evidence of intracranial hemorrhage or mass effect. 2. Opacification RIGHT mastoid air cells and middle ear. 3. No acute intracranial findings.
--- NOTE | 2025-06-18 13:24 | W.ED.GENADLT ---
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 She says she has a headache but otherwise no other symptoms. Said she received multiple medications while she was there. Nothing seems to be helping. No chest pain. No altered mental status. No focal motor deficits. No nausea or vomiting. Related Data Home Medications ?Medication ?Instructions ?Recorded ?Confirmed ascorbic acid (vitamin C) 500 mg 500 mg PO BID@0700,1730 09/13/20 06/18/25 tablet (Vitamin C) aspirin 81 mg chewable tablet 81 mg PO DAILY@209909/13/20 06/18/25 fluticasone propionate 50 1 spray intranasal DAILY@209909/13/20 06/18/25 mcg/actuation nasal spray,suspension loperamide 2 mg capsule 2 mg PO TID PRN Diarrhea 09/13/20 06/18/25 magnesium oxide 400 mg (241.3 mg 400 mg PO DAILY@1430 09/13/20 06/18/25 magnesium) tablet vitamin E acetate 134 mg (200 400 unit PO DAILY@0700 09/13/20 06/18/25 unit) capsule cholecalciferol (vitamin D3) 25 25 mcg PO DAILY 05/28/25 06/18/25 mcg (1,000 unit) capsule (Vitamin D3) losartan 50 mg tablet 50 mg PO DAILY 05/28/25 06/18/25 mycophenolate sodium 180 mg 180 mg PO QID 05/28/25 06/18/25 tablet,delayed release vitamins with calcium 27 tab PO DAILY 05/28/25 06/18/25 no.72-iron 27 mg-folic acid 1 mg tablet ( Vitamins Plus Low Iron) tacrolimus 0.5 mg capsule, See Rx Instructions .Route .COMPLEX 05/28/25 06/18/25 immediate-release Previous Rx's ?Medication ?Instructions ?Recorded carvedilol 12.5 mg tablet 25 mg (2 x 12.5 mg) PO BID #180 06/02/25 tabs clonidine HCl 0.1 mg tablet 0.1 mg PO TID #90 tabs 06/02/25 docusate sodium 100 mg capsule 100 mg PO BID #60 caps 06/02/25 hydralazine 100 mg tablet 100 mg PO TID #90 tabs 06/02/25 prednisone 5 mg tablet 5 mg PO DAILY #30 tabs 06/02/25 Allergies Allergy/AdvReac Type Severity Reaction Status Date / Time cranberry Allergy Severe ALGY-Swell Verified 05/30/25 08:10 Lip/Tongue/Throat codeine Allergy ADR-Halluci Verified 04/15/25 14:55 nating isosorbide Allergy ALGY-Hives Verified 06/18/25 14:37 nifedipine Allergy ALGY-Swell Verified 05/29/25 20:23 Lip/Tongue/Throat povidone-iodine (From Allergy ADR-Itching Verified 04/15/25 14:55 Betadine) simvastatin Allergy Unknown Verified 05/28/25 15:55 trazodone Allergy ADR-Vomitin Verified 04/15/25 14:55 g Review of Systems Narrative: Constitutional symptoms: Negative except as documented in HPI. Skin symptoms: Negative except as documented in HPI. Eye symptoms: Negative except as documented in HPI. ENMT symptoms: Negative except as documented in HPI. Respiratory symptoms: Negative except as documented in HPI. Cardiovascular symptoms: Negative except as documented in HPI. Gastrointestinal symptoms: Negative except as documented in HPI. Genitourinary symptoms: Negative except as documented in HPI. Musculoskeletal symptoms: Negative except as documented in HPI. Neurologic symptoms: Negative except as documented in HPI. Psychiatric symptoms: Negative except as documented in HPI. Endocrine symptoms: Negative except as documented in HPI. PFS ED PFSH: Medical History (Updated 06/18/25 @ 15:21 by Eliana Farnsworth MD) Immunosuppressed status Moderate aortic valve stenosis Hepatitis C Post hysterectomy menopause Surgical History (Updated 06/03/25 @ 06:31 by Aaron Lo DO) Transplant Arteriovenous fistula removed Renal transplant recipient Social History Smoking and tobacco/nicotine status: current every day tobacco/nicotine user Alcohol intake: never Substance/Drug Use: never Physical Exam Narrative: EXAM NARRATIVE: General: Alert, no acute distress. Skin: Warm, dry. Head: Normocephalic, atraumatic. Neck: Supple, trachea midline. Eye: Extraocular movements are intact. Ears, nose, mouth and throat: mucosa moist. Cardiovascular: Regular, Normal peripheral perfusion. Dialysis catheter in place on the right chest. Respiratory: Lungs are clear to auscultation, respirations are non-labored, breath sounds are equal, Symmetrical chest wall expansion. Gastrointestinal: Soft, Nontender, Non distended Musculoskeletal: Normal ROM, no deformity. Neurological: Alert and oriented, No focal neurological deficit observed. Psychiatric: Cooperative, appropriate mood & affect. Course Vital Signs: Vital signs: Vital Signs Temperature 98.1 F 06/18/25 13:05 Pulse Rate 71 06/18/25 14:16 Respiratory Rate 18 06/18/25 13:05 Blood Pressure 207/95 06/18/25 14:48 Pulse Oximetry 94 06/18/25 14:16 Oxygen Delivery Me thod Room Air 06/18/25 14:16 MDM - General Adult Medical Decision Making Medical decision making: Differential diagnosis including but not limited to and based on the above HPI, review of systems and physical exam: Patient presents with hypertension: Essential hypertension. Stroke. acute coronary syndrome. kidney failure. congestive heart failure. anxiety. Orders placed to evaluate differential diagnosis based on the above differential, HPI and physical exam EKG: Time 1259. Rate 77. Normal sinus rhythm, No ST-T changes, no ectopy, normal MI & QRS intervals, This was reviewed and interpreted by myself the ER physician at 1305 Repeat EKG: Time 1411. Rate 68. Normal sinus rhythm, No ST-T changes, no ectopy, normal MI & QRS intervals, This was reviewed and interpreted by myself the ER physician at 1415. No changes from EKG taken previous in the ER today other than rate has decreased slightly. CT head: No acute intracranial process. no intracranial hemorrhage, no evidence of infarct. no evidence of acute fracture.This was reviewed and interpreted by myself the ER physician. Chest x-ray: Moderate bilateral pleural effusions and lower lobe opacities. Unclear etiology but patient does not have any pneumonia type symptoms. No cough. No fever. No chest pain. No shortness of breath. This was reviewed and interpreted by myself the emergency room physician. I also reviewed the radiology report. Lab Review: Laboratory results were reviewed and interpreted by myself the emergency room physician. Lab work is unremarkable. No leukocytosis. Stable anemia. BUN and creatinine are 19 and 1.4 which would be expected in this dialysis patient. I reviewed the patient's medical record. Reexamination: Initially spoke with patient and she agreed to observation overnight to try to get her blood pressure down. It has come down some finally with hydralazine and labetalol. However after I left the room and had her admitted she decided she did not want to stay any longer. I went back and talk to her discussed that this could be a life-threatening level of elevated blood pressure. She assures me that her blood pressure will improve once she gets out of here and that she was forced to come here by the dialysis people and she does not want to be here anymore. She expresses understanding and has capacity and so I am going to discharge her. She has been fairly stable I do not think she needs to sign AMA at this point Assessment and plan: Accelerated hypertension End-stage renal disease on dialysis ? Labetalol and hydralazine with some improvement in her blood pressure was 180s over 80s. - Discharged home - Discussed plan with patient. Answered any questions. - Evaluation and treatment of this problem were appropriate in the emergency setting. Lab Data 06/18/25 13:18 06/18/25 13:18 Radiology Impressions Chest X-Ray 06/18/25 12:47 Impression: 1. Moderate bilateral pleural effusions. 2. Bilateral lower lobe opacities. 3. Atherosclerosis. Head CT 06/18/25 13:08 IMPRESSION: 1. No evidence of intracranial hemorrhage or mass effect. 2. Opacification RIGHT mastoid air cells and middle ear. 3. No acute intracranial findings. Laboratory Results WBC 5.13 10^3/uL (3.29-11.43) 06/18/25 13:18 RBC 2.86 10^6/uL (3.85-5.65) L 06/18/25 13:18 Hgb 8.80 g/dL (11.27-16.99) L 06/18/25 13:18 Hct 27.7 % (36-47) L 06/18/25 13:18 MCV 96.9 fl (85-98) 06/18/25 13:18 MCH 30.8 pg (27-33) 06/18/25 13:18 MCHC 31.8 g/dL (30-55) 06/18/25 13:18 RDW 17.2 % (12.1-15.1) H 06/18/25 13:18 Plt Count 288 10^3/cmm (157-399) 06/18/25 13:18 MPV 9.9 fL (7.4-10.4) 06/18/25 13:18 Neut % (Auto) 84.9 % 06/18/25 13:18 Lymph % (Auto) 7.8 % 06/18/25 13:18 [place] % (Auto) 5.3 % 06/18/25 13:18 Eos % (Auto) 0.8 % 06/18/25 13:18 Baso % (Auto) 0.6 % 06/18/25 13:18 Neut # (Auto) 4.36 10^3/uL (1.8-7.7) 06/18/25 13:18 Lymph # (Auto) 0.4 10^3/uL (0.8-4.8) L 06/18/25 13:18 [place] # (Auto) 0.3 10^3/uL (0.2-0.9) 06/18/25 13:18 Eos # (Auto) 0.0 10^3/uL (0.0-0.8) 06/18/25 13:18 Baso # (Auto) 0.0 10^3/uL (0.0-0.1) 06/18/25 13:18 Nucleated RBC % (auto) 0 % 06/18/25 13:18 Nucleated RBCs # 0.0 /100WBC 06/18/25 13:18 Sodium 134 mmol/L (136-145) L 06/18/25 13:18 Potassium 4.2 mmol/L (3.5-5.1) 06/18/25 13:18 Chloride 98 mmol/L (98-107) 06/18/25 13:18 Carbon Dioxide 25 mmol/L (22-29) 06/18/25 13:18 Anion Gap 16.2 (5-19) 06/18/25 13:18 BUN 19 mg/dL (8-23) 06/18/25 13:18 Creatinine 1.4 mg/dL (0.5-0.9) H 06/18/25 13:18 GFR Calculation 38.0 mL/min (90-130) L 06/18/25 13:18 Glucose 157 mg/dL (65-115) H 06/18/25 13:18 Calculated Osmolality 284 mOsm/kg (285-295) L 06/18/25 13:18 Calcium 8.6 mg/dL (8.5-10.5) 06/18/25 13:18 Total Bilirubin 0.3 mg/dL (0.15-1.2) 06/18/25 13:18 AST 24 U/L (0-32) 06/18/25 13:18 ALT 22 U/L (0-33) 06/18/25 13:18 Alkaline Phosphatase 98 U/L (35-105) 06/18/25 13:18 Troponin T Baseline 34 ng/L (0-10) H 06/18/25 13:18 NT-Pro-B Natriuret Pep > 43515 pg/mL (0-125) H 06/18/25 13:18 Total Protein 6.3 g/dL (6.6-8.7) L 06/18/25 13:18 Albumin 3.8 g/dL (3.5-5.2) 06/18/25 13:18 Globulin 2.5 g/dL (1.3-4.6) 06/18/25 13:18 All radiology interpretation(s) finalized by discharge Discharge Plan Discharge Patient Disposition: Home Clinical Impression: Accelerated hypertension Condition: Stable Prescriptions: No Action loperamide 2 mg capsule 2 mg PO TID PRN (Reason: Diarrhea) magnesium oxide 400 mg (241.3 mg magnesium) tablet 400 mg PO DAILY@1430 fluticasone propionate 50 mcg/actuation spray,suspension 1 spray INTRANASAL DAILY@2100 ascorbic acid (vitamin C) [Vitamin C] 500 mg Tablet 500 mg PO BID@0700,1730 aspirin 81 mg Tablet,Chewable 81 mg PO DAILY@2100 vitamin E acetate 200 unit Capsule 400 unit PO DAILY@0700 tacrolimus 0.5 mg capsule See Rx Instructions .ROUTE .COMPLEX Rx Instructions: TAKE 3 CAPSULES BY MOUTH EVERY MORNING AND TAKE 3 CAPSULES BY MOUTH EVERY EVENING cholecalciferol (vitamin D3) [Vitamin D3] 25 mcg (1,000 unit) Capsule 25 mcg PO DAILY mycophenolate sodium 180 mg tablet,delayed release (DR/EC) 180 mg PO QID Vitamin Plus Low Iron 27 mg iron- 1 mg tablet 27 tab PO DAILY losartan 50 mg tablet 50 mg PO DAILY hydralazine 100 mg tablet 100 mg PO TID Qty: 90 0RF clonidine HCl 0.1 mg Tablet 0.1 mg PO TID Qty: 90 0RF docusate sodium 100 mg Capsule 100 mg PO BID Qty: 60 0RF carvedilol 12.5 mg tablet 25 mg PO BID Qty: 180 3RF Rx Instructions: must administer with a meal/food prednisone 5 mg tablet 5 mg PO DAILY Qty: 30 0RF Discharge Orders: Discharge ED (Routine); Ordered 06/18/25 Ordered By: Elinaa Farnsworth Referrals: Ale Olivier MD [Primary Care Provider, Family Practice] Discharge Diet: Usual diet Discharge Activity: Increase activity as tolerated Patient Instructions: Opioid Safety, Pain Management, Patient Portal & Darryn Instructions Activity Restrictions/Additional Instructions: Thank you for choosing [facility] for your healthcare needs today. You have been screened and evaluated and felt safe for discharge. Health conditions do change or evolve sometimes and as such it is important that you follow up with your Primary Doctor to be re checked, 3-5 days is a general good time frame for follow up. You are always welcome to return to the ED for re assessment if your symptoms are worsening or you have new concerns Print Language: Bengali Coding Level of Care Code ED Conflict Resolution Professional for Tanya Neil
[2025-06-18 13:32] LABS: Hematocrit 27.7 % (36-47); Hemoglobin 8.80 g/dL (11.27-16.99); Mean Corpuscular HGB Conc 31.8 g/dL (30-55); Mean Corpuscular Hemoglobin 30.8 pg (27-33); Mean Corpuscular Volume 96.9 fl (85-98); Nucleated Red Blood Cells % 0 %; Platelet Count 288 10^3/cmm (157-399); Red Blood Count 2.86 10^6/uL (3.85-5.65); White Blood Count 5.13 10^3/uL (3.29-11.43)
[2025-06-18] MEDS: labetalol 5 mg/mL SDV 20mL 20 MG IVP (13:37)
[2025-06-18 13:38] VITALS: BP 164/97
[2025-06-18 13:51] LABS: Troponin(5th) Baseline 34 ng/L (0-10)
--- NOTE | 2025-06-18 14:11 | ECG_ITS ---
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 Measurements Intervals [place] Rate: 68 P: 36 AR: 147 QRS: 29 QRSD: 77 T: 75 QT: 422 QTc: 452 Interpretive Statements SINUS RHYTHM Compared to ECG 06/18/2025 12:59:26 No significant changes Electronically Signed On 06-18-2025 23:36:40 CDT by Jae Murillo M.D. [email or web address]
[2025-06-18 14:12] LABS: Albumin Level 3.8 g/dL (3.5-5.2); Alkaline Phosphatase 98 U/L (35-105); Blood Urea Nitrogen 19 mg/dL (8-23); Calcium 8.6 mg/dL (8.5-10.5); Carbon Dioxide 25 mmol/L (22-29); Chloride 98 mmol/L (98-107); Creatinine Clr Calc Pharmacy 33.1839; Globulin 2.5 g/dL (1.3-4.6); Glucose 157 mg/dL (65-115); Osmolality Calculated 284 mOsm/kg (285-295); Sodium 134 mmol/L (136-145); Total Protein 6.3 g/dL (6.6-8.7)
[2025-06-18 14:16] VITALS: BP 188/97; PULSE 71; O2SAT 94
[2025-06-18 14:29] LABS: Alanine Aminotransferase 22 U/L (0-33); Anion Gap 16.2 (5-19); Aspartate Amino Transferase 24 U/L (0-32); Potassium 4.2 mmol/L (3.5-5.1)
[2025-06-18 14:38] LABS: NT Pro B Type Natriuretic Pept > 70000 pg/mL (0-125)
--- NOTE | 2025-06-18 14:38 | PC.PHAR ---
Pt has new allergies: Nifedipine and Isosorbide.
[2025-06-18 14:48] VITALS: BP 207/95
[2025-06-18] MEDS: hyDRALAzine 20 mg/mL INJ 1 mL IVP (14:48)
[2025-06-18 15:30] VITALS: BP 186/84; PULSE 76; O2SAT 94
== END 2025-06-18 15:31 | disposition home or self-care (01) ==
LOC: ER 14:26 → CSU 15:21 → ER 15:24
PROVIDERS: Emergency Provider Emergency Medicine; PCP Family Medicine
DX: I10 Essential (primary) hypertension (principal); Z79.82 Long term (current) use of aspirin; Z72.0 Tobacco use; T86.11 Kidney transplant rejection; Z94.83 Pancreas transplant status; Z94.0 Kidney transplant status; Z99.2 Dependence on renal dialysis
CPT/HCPCS: 36415; 70450; 71045; 80053; 83880; 84484; 85025; 93005; 96374; 96375; 99285; J0360; J3490

== ENCOUNTER 2025-06-23 13:23 | Emergency (ER) | payer OTHER, MEDICAID, SELFPAY ==
[2025-06-23 13:24] VITALS: BP 192/104; PULSE 69; RESP 16; TEMP 36.7; O2SAT 93
--- NOTE | 2025-06-23 13:33 | XRR_ITS ---
PROCEDURE INFORMATION: Exam: XR Chest Exam date and time: 06/23/2025 1:38 PM Age: 64 years old Clinical indication: Other: Hypertension; Additional info: Hypertension post hd TECHNIQUE: Imaging protocol: Radiologic exam of the chest. Views: 1 view. COMPARISON: CR XR chest 1V portable [id number] 06/18/2025 12:55 PM FINDINGS: Tubes, catheters and devices: Right internal jugular central line without change. Lungs: Mild bibasilar opacities/atelectasis which is improved or decreased. Pleural spaces: Small bilateral pleural effusions without change. Heart/Mediastinum: Unremarkable. No cardiomegaly. Bones/joints: Unremarkable. XR/XR chest 1V portable [id number] IMPRESSION: Improved aeration at the lung bases. Small bilateral pleural effusions.
--- NOTE | 2025-06-23 13:39 | ECG_ITS ---
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 Measurements Intervals [place] Rate: 69 P: 58 AL: 144 QRS: 48 QRSD: 79 T: 78 QT: 404 QTc: 435 Interpretive Statements SINUS RHYTHM Compared to ECG 06/18/2025 14:11:39 No significant changes Electronically Signed On 06-24-2025 08:00:26 CDT by Ashvin De Santiago M.D. [email or web address]
--- NOTE | 2025-06-23 13:44 | W.ED.GENADLT ---
HPI - General Adult General: Chief complaint: General Medical Stated complaint: htn post dialysis Time Seen by Provider: 06/23/25 13:24 History of Present Illness: 64-year-old female past medically history significant for malignant hypertension,ESRD on hemodialysis status post failed kidney transplant, aortic valve stenosis, type 2 diabetes, presenting to the emergency department with elevated blood pressure readings before and after dialysis, received her normal scheduled dialysis Monday today, last dialysis was also obtained on Monday as scheduled, patient reports some nonspecific dizziness and fatigue, denies chest pain or palpitations, reports shortness of breath yesterday that improved after dialysis, reports compliance with all of her scheduled medications, denies any recent fevers, denies any significant weight changes. Related Data Home Medications ?Medication ?Instructions ?Recorded ?Confirmed ascorbic acid (vitamin C) 500 mg 500 mg PO BID@0700,1730 09/13/20 06/18/25 tablet (Vitamin C) aspirin 81 mg chewable tablet 81 mg PO DAILY@2100 09/13/20 06/18/25 fluticasone propionate 50 1 spray intranasal DAILY@209909/13/20 06/18/25 mcg/actuation nasal spray,suspension loperamide 2 mg capsule 2 mg PO TID PRN Diarrhea 09/13/20 06/18/25 magnesium oxide 400 mg (241.3 mg 400 mg PO DAILY@1430 09/13/20 06/18/25 magnesium) tablet vitamin E acetate 134 mg (200 400 unit PO DAILY@0700 09/13/20 06/18/25 unit) capsule cholecalciferol (vitamin D3) 25 25 mcg PO DAILY 05/28/25 06/18/25 mcg (1,000 unit) capsule (Vitamin D3) losartan 50 mg tablet 50 mg PO DAILY 05/28/25 06/18/25 mycophenolate sodium 180 mg 180 mg PO QID 05/28/25 06/18/25 tablet,delayed release vitamins with calcium 27 tab PO DAILY 05/28/25 06/18/25 no.72-iron 27 mg-folic acid 1 mg tablet ( Vitamins Plus Low Iron) tacrolimus 0.5 mg capsule, See Rx Instructions .Route .COMPLEX 05/28/25 06/18/25 immediate-release Previous Rx's ?Medication ?Instructions ?Recorded carvedilol 12.5 mg tablet 25 mg (2 x 12.5 mg) PO BID #180 06/02/25 tabs clonidine HCl 0.1 mg tablet 0.1 mg PO TID #90 tabs 06/02/25 docusate sodium 100 mg capsule 100 mg PO BID #60 caps 06/02/25 hydralazine 100 mg tablet 100 mg PO TID #90 tabs 06/02/25 prednisone 5 mg tablet 5 mg PO DAILY #30 tabs 06/02/25 Allergies Allergy/AdvReac Type Severity Reaction Status Date / Time cranberry Allergy Severe ALGY-Swell Verified 05/30/25 08:10 Lip/Tongue/Throat codeine Allergy ADR-Halluci Verified 04/15/25 14:55 nating isosorbide Allergy ALGY-Hives Verified 06/18/25 14:37 nifedipine Allergy ALGY-Swell Verified 05/29/25 20:23 Lip/Tongue/Throat povidone-iodine (From Allergy ADR-Itching Verified 04/15/25 14:55 Betadine) simvastatin Allergy Unknown Verified 05/28/25 15:55 trazodone Allergy ADR-Vomitin Verified 04/15/25 14:55 g PFSH ED PFSH: Medical History Immunosuppressed status Moderate aortic valve stenosis Hepatitis C Post hysterectomy menopause Surgical History Transplant Arteriovenous fistula removed Renal transplant recipient Social History Smoking and tobacco/nicotine status: current every day tobacco/nicotine user Alcohol intake: never Substance/Drug Use: never Physical Exam Const: COMMON NORMALS: no acute distress, patient oriented x3 and healthy appearing HENMT: COMMON NORMALS: normocephalic and atraumatic HEAD & SCALP: normocephalic and atraumatic Eye: COMMON NORMALS: Equal, round and reactive pupils present and EOMs intact bilaterally PUPIL: Yes Equal, round and reactive pupils present Neck/C-Spine: COMMON NORMALS: full ROM and supple Chest: COMMONS NORMALS: normal palpation of entire chest wall; negative for normal inspection of the chest (Right sided subclavian tunneled dialysis catheter in place no overlying ravi) Resp: COMMON NORMALS: normal respiratory effort, No retractions, No use of accessory muscles and clear to auscultation bilaterally AUSCULTATION: clear to auscultation bilaterally Cardio: COMMON NORMALS: regular rate, regular rhythm and No murmurs present (Cardio) RATE: regular rate RHYTHM: regular rhythm GI: COMMON NORMALS: Normal to inspection, nondistended, normoactive bowel sounds present, Soft to palpation, non-tender and no masses PALPATION: Yes Soft to palpation Extremity: COMMON NORMALS: normal to inspection and full ROM; negative for no pedal edema (Positive for bilateral lower extremity pitting edema 1+ and symmetric) Neuro: COMMON NORMALS: patient oriented x3, moves all extremities and no focal motor deficits Psych: COMMON NORMALS: mental status grossly normal, Normal thought process present and cooperative THOUGHT PROCESS: Normal thought process present Skin: COMMON NORMALS: no rashes or lesions noted and no wounds GENERAL SKIN EXAM: no rashes or lesions noted Course Reevaluation(s): Reevaluation #1: Patient reassessed, BP mildly improved, labs showing moderate anemia not meeting transfusion threshold, chest x-ray with mild bilateral small pleural effusions, no hypoxia or supplemental oxygen requirements, recommend patient discussed with storage battery inspector and tester increasing dialysis fluid removal as that would likely benefit both her symptoms as well as her blood pressure and her leg swelling, stable for discharge with outpatient follow-up. Time: 14:45 Vital Signs: Vital signs: Vital Signs Temperature 98.1 F 06/23/25 13:24 Pulse Rate 70 06/23/25 14:30 Respiratory Rate 16 06/23/25 13:24 Blood Pressure 170/92 06/23/25 14:30 Pulse Oximetry 95 06/23/25 14:15 Oxygen Delivery Me thod Room Air 06/23/25 14:30 [facility] - General Adult Medical Decision Making 64-year-old female history of malignant hypertension, type 2 diabetes, ESRD on hemodialysis status post failed kidney transplant, presenting with elevated blood pressure pre and postdialysis, received normal scheduled dialysis today, symptoms include shortness of breath yesterday that is improved today as well as nonspecific lightheadedness and weakness today. No focal sensory or motor deficits or dysmetria on exam neurologically to me, she does have some 1+ bilateral pitting edema, clear breath sounds without hypoxia or tachypnea, EKG benign, plan for labs to assess for any endorgan damage, trial of IV hydralazine, reassess for disposition Differential Diagnosis Accelerated hypertension, hypertensive emergency, hypervolemia, arrhythmia, hyponatremia Lab Data Labs showing moderate anemia not meeting transfusions crushable, no leukocytosis, no significant electrolyte abnormalities, borderline magnesium 1.9 nonactionable 06/23/25 13:53 06/23/25 13:53 Radiology Impressions Chest X-Ray 06/23/25 13:33 IMPRESSION: Improved aeration at the lung bases. Small bilateral pleural effusions. Laboratory Results WBC 5.74 10^3/uL (3.29-11.43) 06/23/25 13:53 RBC 2.43 10^6/uL (3.85-5.65) L 06/23/25 13:53 Hgb 7.70 g/dL (11.27-16.99) L 06/23/25 13:53 Hct 24.3 % (36-47) L 06/23/25 13:53 MCV 100.0 fl (85-98) H 06/23/25 13:53 MCH 31.7 pg (27-33) 06/23/25 13:53 MCHC 31.7 g/dL (30-55) 06/23/25 13:53 RDW 18.5 % (12.1-15.1) H 06/23/25 13:53 Plt Count 288 10^3/cmm (157-399) 06/23/25 13:53 MPV 10.4 fL (7.4-10.4) 06/23/25 13:53 Neut % (Auto) 70.7 % 06/23/25 13:53 Lymph % (Auto) 12.4 % 06/23/25 13:53 Patrick % (Auto) 11.5 % 06/23/25 13:53 Eos % (Auto) 4.0 % 06/23/25 13:53 Baso % (Auto) 0.5 % 06/23/25 13:53 Neut # (Auto) 4.06 10^3/uL (1.8-7.7) 06/23/25 13:53 Lymph # (Auto) 0.7 10^3/uL (0.8-4.8) L 06/23/25 13:53 Patrick # (Auto) 0.7 10^3/uL (0.2-0.9) 06/23/25 13:53 Eos # (Auto) 0.2 10^3/uL (0.0-0.8) 06/23/25 13:53 Baso # (Auto) 0.0 10^3/uL (0.0-0.1) 06/23/25 13:53 Nucleated RBC % (auto) 0 % 06/23/25 13:53 Nucleated RBCs # 0.0 /100WBC 06/23/25 13:53 Sodium 137 mmol/L (136-145) 06/23/25 13:53 Potassium 4.1 mmol/L (3.5-5.1) 06/23/25 13:53 Chloride 101 mmol/L (98-107) 06/23/25 13:53 Carbon Dioxide 25 mmol/L (22-29) 06/23/25 13:53 Anion Gap 15.1 (5-19) 06/23/25 13:53 BUN 17 mg/dL (8-23) 06/23/25 13:53 Creatinine 1.6 mg/dL (0.5-0.9) H 06/23/25 13:53 GFR Calculation 32.6 mL/min (90-130) L 06/23/25 13:53 Glucose 134 mg/dL (65-115) H 06/23/25 13:53 Calculated Osmolality 288 mOsm/kg (285-295) 06/23/25 13:53 Calcium 8.0 mg/dL (8.5-10.5) L 06/23/25 13:53 Phosphorus 2.0 mg/dL (2.5-4.5) L 06/23/25 13:53 Magnesium 1.9 mg/dL (1.7-2.3) 06/23/25 13:53 All radiology interpretation(s) finalized by discharge ED provider radiology interpretation(s): Chest x-ray showing mild small bilateral pleural effusions, no airspace disease EKG Data EKG 1: I personally reviewed and interpreted this EKG as follows: EKG interpretation date: 06/23/25 EKG interpretation time: 13:39 Ischemic changes: other (None) Interpretation: Normal sinus rhythm at 69 bpm, no STEMI, no ectopy, normal axis, QTc 424 ms Computer generated interpretation: Chest X-Ray 06/23/25 13:33 IMPRESSION: Improved aeration at the lung bases. Small bilateral pleural effusions. Discharge Plan Discharge Patient Disposition: Home Clinical Impression: Accelerated essential hypertension, Hypervolemia associated with renal insufficiency Condition: Stable Prescriptions: No Action loperamide 2 mg capsule 2 mg PO TID PRN (Reason: Diarrhea) magnesium oxide 400 mg (241.3 mg magnesium) tablet 400 mg PO DAILY@1430 fluticasone propionate 50 mcg/actuation spray,suspension 1 spray INTRANASAL DAILY@2100 ascorbic acid (vitamin C) [Vitamin C] 500 mg Tablet 500 mg PO BID@0700,1730 aspirin 81 mg Tablet,Chewable 81 mg PO DAILY@2100 vitamin E acetate 200 unit Capsule 400 unit PO DAILY@0700 tacrolimus 0.5 mg capsule See Rx Instructions .ROUTE .COMPLEX Rx Instructions: TAKE 3 CAPSULES BY MOUTH EVERY MORNING AND TAKE 3 CAPSULES BY MOUTH EVERY EVENING cholecalciferol (vitamin D3) [Vitamin D3] 25 mcg (1,000 unit) Capsule 25 mcg PO DAILY mycophenolate sodium 180 mg tablet,delayed release (DR/EC) 180 mg PO QID Vitamin Plus Low Iron 27 mg iron- 1 mg tablet 27 tab PO DAILY losartan 50 mg tablet 50 mg PO DAILY hydralazine 100 mg tablet 100 mg PO TID Qty: 90 0RF clonidine HCl 0.1 mg Tablet 0.1 mg PO TID Qty: 90 0RF docusate sodium 100 mg Capsule 100 mg PO BID Qty: 60 0RF carvedilol 12.5 mg tablet 25 mg PO BID Qty: 180 3RF Rx Instructions: must administer with a meal/food prednisone 5 mg tablet 5 mg PO DAILY Qty: 30 0RF Discharge Orders: Discharge ED (Routine); Ordered 06/23/25 Ordered By: Martin Kaba Referrals: Ale Olivier MD [Primary Care Provider, Family Practice] - 1 week Referral Note: blood pressure control nephrology [Other] Referral Note: Follow-up with your storage battery inspector and tester to discuss alteration to your dialysis or blood pressure regimen Patient Instructions: Patient Portal & Darryn Instructions, Chronic Hypertension (ED) Print Language: Vietnamese Coding Level of Care Code ED Quality Process Engineer for Tanya Neil
[2025-06-23] MEDS: hyDRALAzine 20 mg/mL INJ 1 mL IVP (13:55)
[2025-06-23 13:56] VITALS: BP 202/102; PULSE 70; O2SAT 92
--- OUTSIDE RECORDS SUMMARY | 2025-06-23 14:00 | XMS_ITS | Encounter Summary ---
Author Organization [facility], [facility] Address [address] [facility] [address] [phone] Phone Care Team Providers Care Forestry Engineer Name Role Phone Unavailable Primary Care Provider Unavailabl e Encounter Details Date Type Department Care Team (Late st Contact Info) Description 06/16/2025 [facility] [address] [facility] [address] [phone] Dana Latif NP [address] [facility] [address] [phone] End stage renal disease; Dependence on [...] Date: 06/16/2025 This patient was personally seen [id number] for a complete visit as part of routine monthly dialysis care for end stage renal disease. Attending Fixed Income Trading Vice President: ORLANDO RABAGO Dialysis Location: [facility] Schedule: Shift: 1 OVERVIEW Patient is [...] 97.6*F Current Dialysis Vitals BP Sit: 218/108 AP/SUPERVISOR CIGAR MAKING HAND: 145/112 Pulse: 67 TREATMENT MEDICATIONS ORDERS Heparin [...] 06/04/25 PTH elevated. Phosphorus controlled. Referred to delinquent tax collection assistant for further counseling. Calcium low. NUTRITION ASSESSMENT Albumin 3.1 06/11/25 2.8 06/04/25 Potassium 5.3 06/11/25 4.2 06/04/25 Albumin not at goal. Potassium controlled. Referred to delinquent tax collection assistant for further counseling. PHYSICAL EXAM Exam not performed. ADDITIONAL LABS WBC 10.70 (06/11/25) 15.37 (06/04/25) Hepatitis B Surface Ab ?10 (06/04/25) Signed by: DANA LATIF NP on 06/16/2025 at 10:30:30 AM Transcribed by: DANA LATIF NP on 06/16/2025 at 10:30:30 AM documented in this encounter Plan of Treatment Not on file documented as of this encounter Visit Diagnoses Diagnosis End stage renal disease Dependence on renal dialysis documented in this encounter
--- OUTSIDE RECORDS SUMMARY | 2025-06-23 14:00 | XMS_ITS | Clinical Summary ---
Author Organization [facility] Address [address] [place] [id number] Care Team Providers Care Glass Tube Bender Name Role Phone Unavailable Primary Care Provider [...] Type Department Care Team Description 06/16/2025 Treatment 8[facility], [facility] [address] [phone] Krupa Latif NP End stage renal disease; Dependence on renal dialysis 06/03/2025 1:40 PM CDT Office Visit [facility], [address] [phone] Jerilyn Mike MD Stage 5 chronic kidney disease (HCC) (Primary Dx); Kidney transplant status; Hypertensive chronic kidney disease with stage 1 through stage 4 chronic kidney disease, or unspecified chronic kidney disease; 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) 05/28/2025 Documentation Only [facility], [facility] [address] [place] [address] Ayla Mueller MA 05/28/2025 Documentation Only [facility], [facility] [address] [place] [phone] She Barajas MA 05/05/2025 Office Communication [facility] [address] [place] [phone] Jerilyn Mike MD 05/05/2025 Transcribe Orders [facility] [address] [place] [phone] Reddy Veliz MD Chronic kidney disease, Stage [...] Procedure Name Priority Date/Time Associated Diagnosis Comments HEMATOLOGY Routine 06/18/2025 HD KINETICS Routine 06/11/2025 POST CHEMISTRY Routine [...] 04/24/2025 from Last 3 Months Results * (ABNORMAL) HEMATOLOGY (06/18/2025) Only the most recent of3 resultswithin the time period is included. Hemoglobin 8.5(L) 12.0 - 16.0 g/dL [facility] Hemoglobin x 3 25.5(L) 36.0 - 48.0 % [facility] 06/18/2025 06/19/2025 12: 24 PM CDT Narrative [facility] - 06/19/2025 Unless otherwise specified, test(s) performed at: [facility], [address] [place] [address] TURKEY ROLL MAKER: Baudilio Otoole M.D. For any questions, please call customer service at FREQUENCY:OTHER Resulting Agency Comment Specimen source: Blood us Jerilyn Mike MD LAB BLOOD ORDERABLES Final Re sult Performing Organization Address [facility]/ZIP Co de Phone Number [facility] See order comments or contact performing lab Unknown, [place] * HD KINETICS (06/11/2025) Only the most recent of2 resultswithin the time period is included. % Urea Reduction 78 65 - 80 % [facility] 06/11/2025 06/12/2025 12: 02 PM CDT Narrative [facility] - 06/13/2025 Unless otherwise specified, test(s) performed at: [facility], [address] [place] [id number] TURKEY ROLL MAKER: Baudilio Otoole M.D. For any questions, please call customer service at FREQUENCY:MONTHLY Resulting Agency Comment Specimen source: Plasma us Jerilyn Mike MD LAB BLOOD ORDERABLES Final Re sult [facility] See order comments or contact performing lab Unknown, [place] * POST CHEMISTRY (06/11/2025) Only the most recent of2 resultswithin the time period is included. BUN Post Dialysis 11 6 - 19 mg/dL [facility] 06/11/2025 06/12/2025 12: 02 PM CDT Narrative [facility] - 06/12/2025 Unless otherwise specified, test(s) performed at: [facility], [address] [place] [address] TURKEY ROLL MAKER: Baudilio Otoole M.D. For any questions, please call customer service at FREQUENCY:MONTHLY Resulting Agency Comment Specimen source: Plasma us Jerilyn Mike MD LAB BLOOD ORDERABLES Final Re sult Performing Organization Address [facility] de Phone Number [email or web address] See order comments or contact performing lab Unknown, [place] * IMMUNO CHEMISTRY (06/11/2025) Only the most recent of2 resultswithin the time period is included. [facility] Hep B Surface Ag Negative Negative [facility] 06/11/2025 06/12/2025 4:5 0 PM CDT Narrative Resulting Agency Comment Specimen source: Serum us Jerilyn Mike MD LAB BLOOD ORDERABLES Final Re sult Performing Organization Address [facility] de Phone Number [facility] See order comments or contact performing lab Unknown, [place] * TRACE ELEMENTS (06/11/2025) Only the most recent of2 resultswithin the time period is included. [facility] Aluminum <5 0 - 10 mcg/L [email or web address] Comment: This test was developed and its performance characteristics determined by [facility]. It has not been cleared or approved by the FDA. The laboratory is regulated under CLIA as qualified to perform high complexity testing. This test is used for clinical purposes. It should not be regarded as investigational or for research. 06/11/2025 06/12/2025 10: 08 AM CDT Narrative [facility] - 06/12/2025 Unless otherwise specified, test(s) performed at: [facility], [address] [place], [place] [id number] TURKEY ROLL MAKER: Baudilio Otoole M.D. For any questions, please call customer service at FREQUENCY:MONTHLY Resulting Agency Comment Specimen source: Serum us Jerilyn Mike MD LAB BLOOD ORDERABLES Final [facility]ult [facility] See order comments or contact performing lab Unknown, [place] * (ABNORMAL) [facility] Chemistry (06/11/2025) Only the most recent of4 [...] 06/13/2025 Unless otherwise specified, test(s) performed at: [facility], [address] [place] [id number] TURKEY ROLL MAKER: Baudilio Otoole M.D. For any questions, please call customer service at FREQUENCY:MONTHLY Resulting Agency Comment Specimen source: Serum Jerilyn Mike MD LAB BLOOD ORDERABLES Edited R esult - Final Performing Organization Address [facility] de Phone Number [facility] See order comments or contact performing lab Unknown, [place] * (ABNORMAL) SPECIAL CHEMISTRY (06/04/2025) Pathologist [facility] Folate 12.8 ng/mL [facility] Comment: Reference Range: Deficient: <3.4 ng/mL Indeterminate: 3.4-5.4 ng/mL Normal: >5.4 ng/mL Vitamin B-12 1,333(H) 211 - 911 pg/mL [facility] Vitamin D, 25-OH, Total 25.1(L) 30.0 - 100.0 ng/mL [facility] Comment: Please Note: Effective August 07, 2023, the methodology for this test has changed to the [email or web address]. 06/04/2025 06/05/2025 9:0 4 AM CDT Narrative Resulting Agency Comment Specimen source: Serum Result [facility] Jerilyn Mike MD LAB BLOOD BANK TEST ORDERABLE S Final Result Performing Organization Address [facility] de Phone Number [facility] See order comments or contact performing lab Unknown, [place] * Comprehensive Metabolic Panel (CMP) (05/26/2025) Only the most recent of2 resultswithin the time period is included. Pathologist [facility] Glucose 97 mg/dL BUN 106 mg/dL Creatinine 6.23 mg/dL Sodium 137 mEq/L Potassium 4.6 mEq/L Chloride 108 Carbon Dioxide 18 mmol/L Calcium 8.0 mg/dL Albumin (Blood) 3.7 g/dL AST (SGOT) 17 U/L ALT (SGPT) 15 U/L Alkaline Phosphatase 64 U/L Total Bilirubin 0.30 MG/DL eGFR 7 Total Protein, Serum 6.5 Anion Gap 11 Blood 05/26/2025 [facility] External Provider LAB BLOOD ORDERABLES Final Result [...] 8.7 Eosinophils 1.9 Basophils 0.8 Blood 05/26/2025 [facility] External Provider LAB BLOOD ORDERABLES Final Result from Last 3 Months Insurance [address] [place] [phone] [facility] Medicare Medicaid [place] ([facility])
--- OUTSIDE RECORDS SUMMARY | 2025-06-23 14:00 | XMS_ITS | Encounter Summary ---
Author Organization [facility] Address [address] [phone] Phone Care Team Providers Care Bicycle Repair Technician Name Role Phone Unavailable Primary Care Provider Unavailabl e Reason for Referral * Consultation (Routine) - Closed Specialty Diagnoses / Procedures Referred By Contac t Referred To Contact Nephrology Diagnoses Kidney transplant status Pancreas transplant status (HCC) Chronic kidney disease, Stage V (HCC) Reddy Veliz MD [address] [facility] [address] [place] [address] Phone: tel: fax: Jerilyn Mike MD [address] [address] Phone: tel: fax: Referral ID Status Reason Start Date Expiration Date V isits Requested Visits Authorized [id number] Closed Consult and Treat 05/05/2025 05/05/2026 1 1 Encounter Details Date Type Department Care Team (Latest Contact Info) Description 05/05/2025 Transcribe Orders [facility] [address] [phone] Reddy Veliz MD [address] [facility] [address] [place] [address] Chronic kidney disease, Stage V [...]
[2025-06-23 14:15] VITALS: BP 167/88; PULSE 71; O2SAT 95
[2025-06-23 14:15] LABS: Hematocrit 24.3 % (36-47); Hemoglobin 7.70 g/dL (11.27-16.99); Mean Corpuscular HGB Conc 31.7 g/dL (30-55); Mean Corpuscular Hemoglobin 31.7 pg (27-33); Mean Corpuscular Volume 100.0 fl (85-98); Nucleated Red Blood Cells % 0 %; Platelet Count 288 10^3/cmm (157-399); Red Blood Count 2.43 10^6/uL (3.85-5.65); White Blood Count 5.74 10^3/uL (3.29-11.43)
[2025-06-23 14:30] VITALS: BP 170/92; PULSE 70
[2025-06-23 14:36] LABS: Anion Gap 15.1 (5-19); Blood Urea Nitrogen 17 mg/dL (8-23); Calcium 8.0 mg/dL (8.5-10.5); Carbon Dioxide 25 mmol/L (22-29); Chloride 101 mmol/L (98-107); Glucose 134 mg/dL (65-115); Magnesium 1.9 mg/dL (1.7-2.3); Osmolality Calculated 288 mOsm/kg (285-295); Potassium 4.1 mmol/L (3.5-5.1); Sodium 137 mmol/L (136-145)
[2025-06-23 15:35] VITALS: BP 181/85; PULSE 72; O2SAT 93
== END 2025-06-23 15:36 | disposition home or self-care (01) ==
PROVIDERS: Emergency Provider Student in an Organized Health Care Education/Training Program; PCP Family Medicine
DX: I10 Essential (primary) hypertension (principal); E86.1 Hypovolemia; I12.0 Hypertensive chronic kidney disease with stage 5 chronic kidney disease or end stage renal disease; E11.22 Type 2 diabetes mellitus with diabetic chronic kidney disease; N18.6 End stage renal disease; Z99.2 Dependence on renal dialysis; Z72.0 Tobacco use; Z79.82 Long term (current) use of aspirin
CPT/HCPCS: 36415; 71045; 80048; 83735; 84100; 85025; 93005; 96374; 99285; J0360

== ENCOUNTER 2025-07-09 06:46 | Emergency (ER) | payer OTHER, MEDICAID, SELFPAY ==
[2025-07-09 06:48] VITALS: BP 241/127; PULSE 82; RESP 18; TEMP 36.7; O2SAT 93; BMI 21.2
--- NOTE | 2025-07-09 06:50 | XRR_ITS ---
PROCEDURE INFORMATION: Exam: XR Chest Exam date and time: 07/09/2025 7:01 AM Age: 64 years old Clinical indication: Injury or trauma; Fall; Blunt trauma (contusions or hematomas); Prior surgery; Surgery date: 6+ months; Surgery type: Dialysis cath; Cancer (type)--breast uterine TECHNIQUE: Imaging protocol: Radiologic exam of the chest. Views: 1 view. COMPARISON: CR XR chest 1V portable [id number] 06/23/2025 1:38 PM FINDINGS: Tubes, catheters and devices: Right IJ dual lumen hemo split dialysis catheter is stable in position. Lungs: There is mild bibasilar atelectasis. Pleural spaces: There is near complete resolution of the small bilateral pleural effusions. Heart/Mediastinum: The cardiac silhouette is at the upper limits of normal. Bones/joints: Unremarkable. XR/XR chest 1V portable [id number] IMPRESSION: Trace bilateral pleural effusions with mild basilar atelectasis.
--- NOTE | 2025-07-09 06:50 | CTR_ITS ---
PROCEDURE INFORMATION: Exam: CT Head Without Contrast Exam date and time: 07/09/2025 7:06 AM Age: 64 years old Clinical indication: Injury or trauma; Blunt trauma (contusions or hematomas); Without loss of consciousness; Orbit/periorbital; Right; Injury details: Multiple recent falls. Fall x this am. Bruising and swelling around RT eye. TECHNIQUE: Imaging protocol: Computed tomography of the head without contrast. Radiation optimization: All CT scans at this facility use at least one of these dose optimization techniques: automated exposure control; mA and/or kV adjustment per patient size (includes targeted exams where dose is matched to clinical indication); or iterative reconstruction. COMPARISON: CT head wo con* [id number] 06/18/2025 1:44 PM RADIATION DOSE METRICS: Total DLP (mGy-cm): 1054.6 FINDINGS: Brain: No acute intracranial hemorrhage. Extensive periventricular and subcortical white matter hypoattenuation, nonspecific although characteristic of chronic small vessel disease. No mass effect or midline shift. The basal cisterns are patent. Calcified intracranial arteries. Cerebral ventricles: Mild generalized cortical volume loss resulting in prominence of the ventricles and sulci. No evidence of acute hydrocephalus. Paranasal sinuses: Characterized on maxillofacial CT. Mastoid air cells: Large right mastoid effusion. Left mastoid air cells are clear. Bones: No depressed calvarial fracture. Soft tissues: Unremarkable scalp soft tissues. PROCEDURE INFORMATION: Exam: CT Maxillofacial Without Contrast Exam date and time: 07/09/2025 7:06 AM Age: 64 years old Clinical indication: Injury or trauma; Blunt trauma (contusions or hematomas); Without loss of consciousness; Orbit/periorbital; Right; Injury details: Multiple recent falls. Fall x this am. Bruising and swelling around RT eye. TECHNIQUE: Imaging protocol: Computed tomography of the face without contrast. Radiation optimization: All CT scans at this facility use at least one of these dose optimization techniques: automated exposure control; mA and/or kV adjustment per patient size (includes targeted exams where dose is matched to clinical indication); or iterative reconstruction. COMPARISON: CT head wo con* [id number] 06/18/2025 1:44 PM RADIATION DOSE METRICS: Total DLP (mGy-cm): 600.1 FINDINGS: Paranasal sinuses: Comminuted, mildly displaced fractures of the anterior and posterior potts of the right maxillary sinus. Near complete opacification of the right maxillary sinus with interposed air. Mild mucosal thickening in the bilateral sphenoid sinuses. Partial opacification of the right frontal sinus and ethmoid air cells. Orbital cavities: See Bones finding. Mastoid air cells: Large right mastoid effusion without discrete temporal bone fracture. Auditory system: Partial opacification of the right middle ear cavity. Bones: Comminuted inferior orbital wall blowout fracture. There is a small amount of layering fluid/hemorrhage in the inferior orbit without definite evidence of inferior rectus muscle entrapment. The lamina papyracea appears intact. The pterygoid plates appear intact. The zygomatic arches appear intact. The nasal bone appears intact. The mandible appears intact. The temporomandibular joints are intact and well aligned. Soft tissues: Extensive right periorbital soft tissue swelling with dissecting gas extending from the maxillary sinus. PROCEDURE INFORMATION: Exam: CT Cervical Spine Without Contrast Exam date and time: 07/09/2025 7:06 AM Age: 64 years old Clinical indication: Injury or trauma; Blunt trauma (contusions or hematomas); Without loss of consciousness; Orbit/periorbital; Right; Injury details: Multiple recent falls. Fall x this am. Bruising and swelling around RT eye. TECHNIQUE: Imaging protocol: Computed tomography of the cervical spine without contrast. Radiation optimization: All CT scans at this facility use at least one of these dose optimization techniques: automated exposure control; mA and/or kV adjustment per patient size (includes targeted exams where dose is matched to clinical indication); or iterative reconstruction. COMPARISON: CT head wo con* [id number] 06/18/2025 1:44 PM RADIATION DOSE METRICS: Total DLP (mGy-cm): 137 FINDINGS: Bones: Straightening of the usual cervical lordosis which may relate to patient positioning or muscle spasm. Grade 1 retrolisthesis of C4 on C5. Vertebral body heights are maintained. No evidence of acute fracture. Multilevel disc osteophyte complexes, most prominent at C3-C4 and C4-C5. Multilevel disc height loss, greatest and moderate at C4-C5. Mild multilevel facet and uncovertebral joint arthropathy. The craniocervical junction appears intact. Mild arthritis of the middle atlantoaxial joint with a small amount of pannus formation. No evidence of critical spinal canal or bony neural foraminal stenosis. There may be up to moderate neural foraminal stenosis at C4-C5 bilaterally. Lungs: Imaged lung apices are clear of consolidation. Thyroid: Heterogenous attenuation of the thyroid gland. Consider thyroid ultrasound. Soft tissues: Prevertebral soft tissues appear within normal limits. CT/CT head wo con* [id number] IMPRESSION: 1. No acute intracranial hemorrhage. 2. Extensive supratentorial white matter hypoattenuation, nonspecific although characteristic of chronic small vessel disease. IMPRESSION: 1. Comminuted, mildly displaced fractures of the anterior and posterior potts of the right maxillary sinus with near complete opacification. Associated layering hemorrhage/air-fluid level. 2. Inferior orbital wall blowout fracture with layering hemorrhage in the inferior orbit. No definite inferior rectus muscle entrapment identified. 3. Large right mastoid effusion without definite temporal bone fracture. 4. Opacification of the right middle ear cavity and mastoid air cells as well as mucosal thickening throughout the right paranasal sinuses may reflect background inflammatory change, though posttraumatic fluid/blood products could also contribute. 5. Extensive right periorbital soft tissue swelling and gas. IMPRESSION: 1. No acute fracture. 2. Grade 1 retrolisthesis of C4 on C5. 3. Multilevel degenerative disc/joint disease and disc osteophyte complexes, greatest at C4-C5. 4. Heterogenous attenuation of the thyroid gland. Consider thyroid ultrasound.
--- NOTE | 2025-07-09 06:50 | CTR_ITS ---
PROCEDURE INFORMATION: Exam: CT Head Without Contrast Exam date and time: 07/09/2025 7:06 AM Age: 64 years old Clinical indication: Injury or trauma; Blunt trauma (contusions or hematomas); Without loss of consciousness; Orbit/periorbital; Right; Injury details: Multiple recent falls. Fall x this am. Bruising and swelling around RT eye. TECHNIQUE: Imaging protocol: Computed tomography of the head without contrast. Radiation optimization: All CT scans at this facility use at least one of these dose optimization techniques: automated exposure control; mA and/or kV adjustment per patient size (includes targeted exams where dose is matched to clinical indication); or iterative reconstruction. COMPARISON: CT head wo con* [id number] 06/18/2025 1:44 PM RADIATION DOSE METRICS: Total DLP (mGy-cm): 1054.6 FINDINGS: Brain: No acute intracranial hemorrhage. Extensive periventricular and subcortical white matter hypoattenuation, nonspecific although characteristic of chronic small vessel disease. No mass effect or midline shift. The basal cisterns are patent. Calcified intracranial arteries. Cerebral ventricles: Mild generalized cortical volume loss resulting in prominence of the ventricles and sulci. No evidence of acute hydrocephalus. Paranasal sinuses: Characterized on maxillofacial CT. Mastoid air cells: Large right mastoid effusion. Left mastoid air cells are clear. Bones: No depressed calvarial fracture. Soft tissues: Unremarkable scalp soft tissues. PROCEDURE INFORMATION: Exam: CT Maxillofacial Without Contrast Exam date and time: 07/09/2025 7:06 AM Age: 64 years old Clinical indication: Injury or trauma; Blunt trauma (contusions or hematomas); Without loss of consciousness; Orbit/periorbital; Right; Injury details: Multiple recent falls. Fall x this am. Bruising and swelling around RT eye. TECHNIQUE: Imaging protocol: Computed tomography of the face without contrast. Radiation optimization: All CT scans at this facility use at least one of these dose optimization techniques: automated exposure control; mA and/or kV adjustment per patient size (includes targeted exams where dose is matched to clinical indication); or iterative reconstruction. COMPARISON: CT head wo con* [id number] 06/18/2025 1:44 PM RADIATION DOSE METRICS: Total DLP (mGy-cm): 600.1 FINDINGS: Paranasal sinuses: Comminuted, mildly displaced fractures of the anterior and posterior potts of the right maxillary sinus. Near complete opacification of the right maxillary sinus with interposed air. Mild mucosal thickening in the bilateral sphenoid sinuses. Partial opacification of the right frontal sinus and ethmoid air cells. Orbital cavities: See Bones finding. Mastoid air cells: Large right mastoid effusion without discrete temporal bone fracture. Auditory system: Partial opacification of the right middle ear cavity. Bones: Comminuted inferior orbital wall blowout fracture. There is a small amount of layering fluid/hemorrhage in the inferior orbit without definite evidence of inferior rectus muscle entrapment. The lamina papyracea appears intact. The pterygoid plates appear intact. The zygomatic arches appear intact. The nasal bone appears intact. The mandible appears intact. The temporomandibular joints are intact and well aligned. Soft tissues: Extensive right periorbital soft tissue swelling with dissecting gas extending from the maxillary sinus. PROCEDURE INFORMATION: Exam: CT Cervical Spine Without Contrast Exam date and time: 07/09/2025 7:06 AM Age: 64 years old Clinical indication: Injury or trauma; Blunt trauma (contusions or hematomas); Without loss of consciousness; Orbit/periorbital; Right; Injury details: Multiple recent falls. Fall x this am. Bruising and swelling around RT eye. TECHNIQUE: Imaging protocol: Computed tomography of the cervical spine without contrast. Radiation optimization: All CT scans at this facility use at least one of these dose optimization techniques: automated exposure control; mA and/or kV adjustment per patient size (includes targeted exams where dose is matched to clinical indication); or iterative reconstruction. COMPARISON: CT head wo con* [id number] 06/18/2025 1:44 PM RADIATION DOSE METRICS: Total DLP (mGy-cm): 137 FINDINGS: Bones: Straightening of the usual cervical lordosis which may relate to patient positioning or muscle spasm. Grade 1 retrolisthesis of C4 on C5. Vertebral body heights are maintained. No evidence of acute fracture. Multilevel disc osteophyte complexes, most prominent at C3-C4 and C4-C5. Multilevel disc height loss, greatest and moderate at C4-C5. Mild multilevel facet and uncovertebral joint arthropathy. The craniocervical junction appears intact. Mild arthritis of the middle atlantoaxial joint with a small amount of pannus formation. No evidence of critical spinal canal or bony neural foraminal stenosis. There may be up to moderate neural foraminal stenosis at C4-C5 bilaterally. Lungs: Imaged lung apices are clear of consolidation. Thyroid: Heterogenous attenuation of the thyroid gland. Consider thyroid ultrasound. Soft tissues: Prevertebral soft tissues appear within normal limits. CT/CT cervical spin wo con* [id number] IMPRESSION: 1. No acute intracranial hemorrhage. 2. Extensive supratentorial white matter hypoattenuation, nonspecific although characteristic of chronic small vessel disease. IMPRESSION: 1. Comminuted, mildly displaced fractures of the anterior and posterior potts of the right maxillary sinus with near complete opacification. Associated layering hemorrhage/air-fluid level. 2. Inferior orbital wall blowout fracture with layering hemorrhage in the inferior orbit. No definite inferior rectus muscle entrapment identified. 3. Large right mastoid effusion without definite temporal bone fracture. 4. Opacification of the right middle ear cavity and mastoid air cells as well as mucosal thickening throughout the right paranasal sinuses may reflect background inflammatory change, though posttraumatic fluid/blood products could also contribute. 5. Extensive right periorbital soft tissue swelling and gas. IMPRESSION: 1. No acute fracture. 2. Grade 1 retrolisthesis of C4 on C5. 3. Multilevel degenerative disc/joint disease and disc osteophyte complexes, greatest at C4-C5. 4. Heterogenous attenuation of the thyroid gland. Consider thyroid ultrasound.
--- NOTE | 2025-07-09 06:51 | CTR_ITS ---
PROCEDURE INFORMATION: Exam: CT Head Without Contrast Exam date and time: 07/09/2025 7:06 AM Age: 64 years old Clinical indication: Injury or trauma; Blunt trauma (contusions or hematomas); Without loss of consciousness; Orbit/periorbital; Right; Injury details: Multiple recent falls. Fall x this am. Bruising and swelling around RT eye. TECHNIQUE: Imaging protocol: Computed tomography of the head without contrast. Radiation optimization: All CT scans at this facility use at least one of these dose optimization techniques: automated exposure control; mA and/or kV adjustment per patient size (includes targeted exams where dose is matched to clinical indication); or iterative reconstruction. COMPARISON: CT head wo con* [id number] 06/18/2025 1:44 PM RADIATION DOSE METRICS: Total DLP (mGy-cm): 1054.6 FINDINGS: Brain: No acute intracranial hemorrhage. Extensive periventricular and subcortical white matter hypoattenuation, nonspecific although characteristic of chronic small vessel disease. No mass effect or midline shift. The basal cisterns are patent. Calcified intracranial arteries. Cerebral ventricles: Mild generalized cortical volume loss resulting in prominence of the ventricles and sulci. No evidence of acute hydrocephalus. Paranasal sinuses: Characterized on maxillofacial CT. Mastoid air cells: Large right mastoid effusion. Left mastoid air cells are clear. Bones: No depressed calvarial fracture. Soft tissues: Unremarkable scalp soft tissues. PROCEDURE INFORMATION: Exam: CT Maxillofacial Without Contrast Exam date and time: 07/09/2025 7:06 AM Age: 64 years old Clinical indication: Injury or trauma; Blunt trauma (contusions or hematomas); Without loss of consciousness; Orbit/periorbital; Right; Injury details: Multiple recent falls. Fall x this am. Bruising and swelling around RT eye. TECHNIQUE: Imaging protocol: Computed tomography of the face without contrast. Radiation optimization: All CT scans at this facility use at least one of these dose optimization techniques: automated exposure control; mA and/or kV adjustment per patient size (includes targeted exams where dose is matched to clinical indication); or iterative reconstruction. COMPARISON: CT head wo con* [id number] 06/18/2025 1:44 PM RADIATION DOSE METRICS: Total DLP (mGy-cm): 600.1 FINDINGS: Paranasal sinuses: Comminuted, mildly displaced fractures of the anterior and posterior potts of the right maxillary sinus. Near complete opacification of the right maxillary sinus with interposed air. Mild mucosal thickening in the bilateral sphenoid sinuses. Partial opacification of the right frontal sinus and ethmoid air cells. Orbital cavities: See Bones finding. Mastoid air cells: Large right mastoid effusion without discrete temporal bone fracture. Auditory system: Partial opacification of the right middle ear cavity. Bones: Comminuted inferior orbital wall blowout fracture. There is a small amount of layering fluid/hemorrhage in the inferior orbit without definite evidence of inferior rectus muscle entrapment. The lamina papyracea appears intact. The pterygoid plates appear intact. The zygomatic arches appear intact. The nasal bone appears intact. The mandible appears intact. The temporomandibular joints are intact and well aligned. Soft tissues: Extensive right periorbital soft tissue swelling with dissecting gas extending from the maxillary sinus. PROCEDURE INFORMATION: Exam: CT Cervical Spine Without Contrast Exam date and time: 07/09/2025 7:06 AM Age: 64 years old Clinical indication: Injury or trauma; Blunt trauma (contusions or hematomas); Without loss of consciousness; Orbit/periorbital; Right; Injury details: Multiple recent falls. Fall x this am. Bruising and swelling around RT eye. TECHNIQUE: Imaging protocol: Computed tomography of the cervical spine without contrast. Radiation optimization: All CT scans at this facility use at least one of these dose optimization techniques: automated exposure control; mA and/or kV adjustment per patient size (includes targeted exams where dose is matched to clinical indication); or iterative reconstruction. COMPARISON: CT head wo con* [id number] 06/18/2025 1:44 PM RADIATION DOSE METRICS: Total DLP (mGy-cm): 137 FINDINGS: Bones: Straightening of the usual cervical lordosis which may relate to patient positioning or muscle spasm. Grade 1 retrolisthesis of C4 on C5. Vertebral body heights are maintained. No evidence of acute fracture. Multilevel disc osteophyte complexes, most prominent at C3-C4 and C4-C5. Multilevel disc height loss, greatest and moderate at C4-C5. Mild multilevel facet and uncovertebral joint arthropathy. The craniocervical junction appears intact. Mild arthritis of the middle atlantoaxial joint with a small amount of pannus formation. No evidence of critical spinal canal or bony neural foraminal stenosis. There may be up to moderate neural foraminal stenosis at C4-C5 bilaterally. Lungs: Imaged lung apices are clear of consolidation. Thyroid: Heterogenous attenuation of the thyroid gland. Consider thyroid ultrasound. Soft tissues: Prevertebral soft tissues appear within normal limits. CT/CT facial bones wo con* [id number] IMPRESSION: 1. No acute intracranial hemorrhage. 2. Extensive supratentorial white matter hypoattenuation, nonspecific although characteristic of chronic small vessel disease. IMPRESSION: 1. Comminuted, mildly displaced fractures of the anterior and posterior potts of the right maxillary sinus with near complete opacification. Associated layering hemorrhage/air-fluid level. 2. Inferior orbital wall blowout fracture with layering hemorrhage in the inferior orbit. No definite inferior rectus muscle entrapment identified. 3. Large right mastoid effusion without definite temporal bone fracture. 4. Opacification of the right middle ear cavity and mastoid air cells as well as mucosal thickening throughout the right paranasal sinuses may reflect background inflammatory change, though posttraumatic fluid/blood products could also contribute. 5. Extensive right periorbital soft tissue swelling and gas. IMPRESSION: 1. No acute fracture. 2. Grade 1 retrolisthesis of C4 on C5. 3. Multilevel degenerative disc/joint disease and disc osteophyte complexes, greatest at C4-C5. 4. Heterogenous attenuation of the thyroid gland. Consider thyroid ultrasound.
--- NOTE | 2025-07-09 06:51 | W.ED.FALL ---
HPI - Fall General: Chief Complaint: Head Injury Stated Complaint: fall Time Seen by Provider: 07/09/25 06:48 Source: patient and EMS Mode of arrival: EMS Limitations: no limitations History of Present Illness: 64-year-old female with a history of end-stage renal disease on dialysis. States she receives dialysis Monday did receive dialysis on Monday states that she was walking at home to her ride to receive dialysis and states that she had fell. She did hit her head has a hematoma above right eye. She does not remember falling and did have a loss of consciousness states she has a headache currently she has been ambulatory since the event denies any chest pain. Associated symptoms-after fall: Reports headache(s) Related Data Home Medications ?Medication ?Instructions ?Recorded ?Confirmed ascorbic acid (vitamin C) 500 mg 500 mg PO BID@0700,1730 09/13/20 06/18/25 tablet (Vitamin C) aspirin 81 mg chewable tablet 81 mg PO DAILY@209909/13/20 06/18/25 fluticasone propionate 50 1 spray intranasal DAILY@209909/13/20 06/18/25 mcg/actuation nasal spray,suspension loperamide 2 mg capsule 2 mg PO TID PRN Diarrhea 09/13/20 06/18/25 magnesium oxide 400 mg (241.3 mg 400 mg PO DAILY@1430 09/13/20 06/18/25 magnesium) tablet vitamin E acetate 134 mg (200 400 unit PO DAILY@0700 09/13/20 06/18/25 unit) capsule cholecalciferol (vitamin D3) 25 25 mcg PO DAILY 05/28/25 06/18/25 mcg (1,000 unit) capsule (Vitamin D3) losartan 50 mg tablet 50 mg PO DAILY 05/28/25 06/18/25 mycophenolate sodium 180 mg 180 mg PO QID 05/28/25 06/18/25 tablet,delayed release vitamins with calcium 27 tab PO DAILY 05/28/25 06/18/25 no.72-iron 27 mg-folic acid 1 mg tablet ( Vitamins Plus Low Iron) tacrolimus 0.5 mg capsule, See Rx Instructions .Route .COMPLEX 05/28/25 06/18/25 immediate-release Previous Rx's ?Medication ?Instructions ?Recorded carvedilol 12.5 mg tablet 25 mg (2 x 12.5 mg) PO BID #180 06/02/25 tabs clonidine HCl 0.1 mg tablet 0.1 mg PO TID #90 tabs 06/02/25 docusate sodium 100 mg capsule 100 mg PO BID #60 caps 06/02/25 hydralazine 100 mg tablet 100 mg PO TID #90 tabs 06/02/25 prednisone 5 mg tablet 5 mg PO DAILY #30 tabs 06/02/25 hydrocodone 5 mg-acetaminophen 325 1 tab PO Q6H PRN pain #14 tabs 07/09/25 mg tablet Allergies Allergy/AdvReac Type Severity Reaction Status Date / Time cranberry Allergy Severe ALGY-Swell Verified 05/30/25 08:10 Lip/Tongue/Throat codeine Allergy ADR-Halluci Verified 04/15/25 14:55 nating isosorbide Allergy ALGY-Hives Verified 06/18/25 14:37 nifedipine Allergy ALGY-Swell Verified 05/29/25 20:23 Lip/Tongue/Throat povidone-iodine (From Allergy ADR-Itching Verified 04/15/25 14:55 Betadine) simvastatin Allergy Unknown Verified 05/28/25 15:55 trazodone Allergy ADR-Vomitin Verified 04/15/25 14:55 g Review of Systems Neuro: Reports: headache(s) PFSH ED PFSH: Medical History (Updated 07/09/25 @ 09:12 by Irving Sultana MD) Immunosuppressed status Moderate aortic valve stenosis Hepatitis C Post hysterectomy menopause Surgical History Transplant Arteriovenous fistula removed Renal transplant recipient Social History Smoking and tobacco/nicotine status: current every day tobacco/nicotine user Alcohol intake: never Substance/Drug Use: never Physical Exam Const: COMMON NORMALS: patient oriented x3 HENMT: COMMON NORMALS: normocephalic HEAD & SCALP: normocephalic OTHER: Hematoma to right forehead Eye: COMMON NORMALS: Equal, round and reactive pupils present and EOMs intact bilaterally PUPIL: Yes Equal, round and reactive pupils present Neck/C-Spine: COMMON NORMALS: full ROM and supple Chest: COMMONS NORMALS: normal inspection of the chest and normal palpation of entire chest wall Resp: COMMON NORMALS: normal respiratory effort, No retractions, No use of accessory muscles and clear to auscultation bilaterally AUSCULTATION: clear to auscultation bilaterally Cardio: COMMON NORMALS: regular rate, regular rhythm and No murmurs present (Cardio) RATE: regular rate RHYTHM: regular rhythm GI: COMMON NORMALS: Normal to inspection, nondistended, normoactive bowel sounds present, Soft to palpation, non-tender and no masses PALPATION: Yes Soft to palpation Extremity: COMMON NORMALS: normal to inspection and full ROM Neuro: COMMON NORMALS: patient oriented x3, moves all extremities and no focal motor deficits Psych: COMMON NORMALS: mental status grossly normal, Normal thought process present and cooperative THOUGHT PROCESS: Normal thought process present Skin: COMMON NORMALS: no rashes or lesions noted and no wounds GENERAL SKIN EXAM: no rashes or lesions noted Course Reevaluation(s): Reevaluation #1: Patient stated her vision started to get more blurry did check intraocular pressures they were in the 30s did speak to residence manager Dr. Mike who came to the ER and performed a lateral canthotomy and her vision is improving pressures are now 18 Time: 08:30 Vital Signs: Vital signs: Vital Signs Temperature 98.1 F 07/09/25 06:48 Pulse Rate 83 07/09/25 09:12 Respiratory Rate 18 07/09/25 06:48 Blood Pressure 178/91 07/09/25 09:12 Pulse Oximetry 90 07/09/25 09:12 Oxygen Delivery Me thod Room Air 07/09/25 09:12 MDM - Fall Medical Decision Making Patient presents here after a fall with head injury and facial trauma. Differential included skull fracture subdural epidural hematoma along with facial fractures. Her head CT here showed no signs of any intracranial imaging facial CT did show multiple facial fractures with orbital blowout fracture. While here she started to have blurry vision did check intraocular pressure and it was in the upper 30s. Av Specialist quickly came to the ER and performed a lateral canthotomy her vision here did improve and intraocular pressures are now 18. She is a dialysis patient was hypertensive did give her hydralazine which improved her blood pressure her EKG showed no ST elevations normal sinus rhythm as interpreted by me. Labs here at her baseline with no hyperkalemia. Patient is to follow-up with Dr. Mike residence manager who I did consult and saw the patient in the ER performed the lateral canthotomy. I also spoke to Dr. Mazariegos's of [facility] with the facial fractures and is to follow-up with him in 7 days she is to return if worsening she understands agrees to plan Medical Records I reviewed the patient's medical records. Lab Data I reviewed the patient's lab results. 07/09/25 07:04 07/09/25 07:32 Radiology Impressions Cervical Spine CT 07/09/25 06:50 IMPRESSION: 1. No acute intracranial hemorrhage. 2. Extensive supratentorial white matter hypoattenuation, nonspecific although characteristic of chronic small vessel disease. IMPRESSION: 1. Comminuted, mildly displaced fractures of the anterior and posterior potts of the right maxillary sinus with near complete opacification. Associated layering hemorrhage/air-fluid level. 2. Inferior orbital wall blowout fracture with layering hemorrhage in the inferior orbit. No definite inferior rectus muscle entrapment identified. 3. Large right mastoid effusion without definite temporal bone fracture. 4. Opacification of the right middle ear cavity and mastoid air cells as well as mucosal thickening throughout the right paranasal sinuses may reflect background inflammatory change, though posttraumatic fluid/blood products could also contribute. 5. Extensive right periorbital soft tissue swelling and gas. IMPRESSION: 1. No acute fracture. 2. Grade 1 retrolisthesis of C4 on C5. 3. Multilevel degenerative disc/joint disease and disc osteophyte complexes, greatest at C4-C5. 4. Heterogenous attenuation of the thyroid gland. Consider thyroid ultrasound. Chest X-Ray 07/09/25 06:50 IMPRESSION: Trace bilateral pleural effusions with mild basilar atelectasis. Head CT 07/09/25 06:50 IMPRESSION: 1. No acute intracranial hemorrhage. 2. Extensive supratentorial white matter hypoattenuation, nonspecific although characteristic of chronic small vessel disease. IMPRESSION: 1. Comminuted, mildly displaced fractures of the anterior and posterior potts of the right maxillary sinus with near complete opacification. Associated layering hemorrhage/air-fluid level. 2. Inferior orbital wall blowout fracture with layering hemorrhage in the inferior orbit. No definite inferior rectus muscle entrapment identified. 3. Large right mastoid effusion without definite temporal bone fracture. 4. Opacification of the right middle ear cavity and mastoid air cells as well as mucosal thickening throughout the right paranasal sinuses may reflect background inflammatory change, though posttraumatic fluid/blood products could also contribute. 5. Extensive right periorbital soft tissue swelling and gas. IMPRESSION: 1. No acute fracture. 2. Grade 1 retrolisthesis of C4 on C5. 3. Multilevel degenerative disc/joint disease and disc osteophyte complexes, greatest at C4-C5. 4. Heterogenous attenuation of the thyroid gland. Consider thyroid ultrasound. Face CT 07/09/25 06:51 IMPRESSION: 1. No acute intracranial hemorrhage. 2. Extensive supratentorial white matter hypoattenuation, nonspecific although characteristic of chronic small vessel disease. IMPRESSION: 1. Comminuted, mildly displaced fractures of the anterior and posterior potts of the right maxillary sinus with near complete opacification. Associated layering hemorrhage/air-fluid level. 2. Inferior orbital wall blowout fracture with layering hemorrhage in the inferior orbit. No definite inferior rectus muscle entrapment identified. 3. Large right mastoid effusion without definite temporal bone fracture. 4. Opacification of the right middle ear cavity and mastoid air cells as well as mucosal thickening throughout the right paranasal sinuses may reflect background inflammatory change, though posttraumatic fluid/blood products could also contribute. 5. Extensive right periorbital soft tissue swelling and gas. IMPRESSION: 1. No acute fracture. 2. Grade 1 retrolisthesis of C4 on C5. 3. Multilevel degenerative disc/joint disease and disc osteophyte complexes, greatest at C4-C5. 4. Heterogenous attenuation of the thyroid gland. Consider thyroid ultrasound. Laboratory Results WBC 9.73 10^3/uL (3.29-11.43) 07/09/25 07:04 RBC 3.06 10^6/uL (3.85-5.65) L 07/09/25 07:04 Hgb 9.70 g/dL (11.27-16.99) L 07/09/25 07:04 Hct 30.4 % (36-47) L 07/09/25 07:04 MCV 99.3 fl (85-98) H 07/09/25 07:04 MCH 31.7 pg (27-33) 07/09/25 07:04 MCHC 31.9 g/dL (30-55) 07/09/25 07:04 RDW 17.9 % (12.1-15.1) H 07/09/25 07:04 Plt Count 213 10^3/cmm (157-399) 07/09/25 07:04 MPV 10.1 fL (7.4-10.4) 07/09/25 07:04 Neut % (Auto) 83.0 % 07/09/25 07:04 Lymph % (Auto) 5.2 % 07/09/25 07:04 Colbert % (Auto) 7.1 % 07/09/25 07:04 Eos % (Auto) 2.8 % 07/09/25 07:04 Baso % (Auto) 0.5 % 07/09/25 07:04 Neut # (Auto) 8.07 10^3/uL (1.8-7.7) H 07/09/25 07:04 Lymph # (Auto) 0.5 10^3/uL (0.8-4.8) L 07/09/25 07:04 Colbert # (Auto) 0.7 10^3/uL (0.2-0.9) 07/09/25 07:04 Eos # (Auto) 0.3 10^3/uL (0.0-0.8) 07/09/25 07:04 Baso # (Auto) 0.1 10^3/uL (0.0-0.1) 07/09/25 07:04 Nucleated RBC % (auto) 0 % 07/09/25 07:04 Nucleated RBCs # 0.0 /100WBC 07/09/25 07:04 PT 13.30 SECONDS (12.1-14.9) 07/09/25 07:32 INR 0.95 (0.8-1.2) 07/09/25 07:32 Sodium 134 mmol/L (136-145) L 07/09/25 07:32 Potassium 4.7 mmol/L (3.5-5.1) 07/09/25 07:32 Chloride 96 mmol/L (98-107) L 07/09/25 07:32 Carbon Dioxide 22 mmol/L (22-29) 07/09/25 07:32 Anion Gap 20.7 (5-19) H 07/09/25 07:32 BUN 47 mg/dL (8-23) H 07/09/25 07:32 Creatinine 3.8 mg/dL (0.5-0.9) H 07/09/25 07:32 GFR Calculation 12.0 mL/min (90-130) L 07/09/25 07:32 Glucose 114 mg/dL (65-115) 07/09/25 07:32 Calculated Osmolality 291 mOsm/kg (285-295) 07/09/25 07:32 Calcium 8.3 mg/dL (8.5-10.5) L 07/09/25 07:32 Total Bilirubin 0.3 mg/dL (0.15-1.2) 07/09/25 07:32 AST 37 U/L (0-32) H 07/09/25 07:32 ALT 34 U/L (0-33) H 07/09/25 07:32 Alkaline Phosphatase 75 U/L (35-105) 07/09/25 07:32 Total Protein 5.9 g/dL (6.6-8.7) L 07/09/25 07:32 Albumin 3.6 g/dL (3.5-5.2) 07/09/25 07:32 Globulin 2.3 g/dL (1.3-4.6) 07/09/25 07:32 All radiology interpretation(s) finalized by discharge EKG Data EKG 1: I personally reviewed and interpreted this EKG as follows: EKG interpretation date: 07/09/25 EKG interpretation time: 06:58 Interpretation: nsr hr [address] elevation qrs 82 qtc 399 Critical Care Time Critical Care Time: Critical Care Time: Yes Total Critical Care Time: 35 Attestation: The high probability of a clinically significant, sudden or life threatening deterioration of the patient's trauma system(s) required my full and direct attention, intervention and personal management. The critical care time is as shown. This time is in addition to time spent performing any reported procedures but includes the following: [x] Data and vital sign review and interpretation [x] Patient assessment, examination and intervention [x] Documentation [x] Medication orders and management Discharge Plan Discharge Patient Disposition: Home Clinical Impression: Fall, Facial fracture, Increased intraocular pressure Condition: Stable Prescriptions: New hydrocodone-acetaminophen 5-325 mg tablet 1 tab PO Q6H PRN (Reason: pain) Qty: 14 0RF No Action loperamide 2 mg capsule 2 mg PO TID PRN (Reason: Diarrhea) magnesium oxide 400 mg (241.3 mg magnesium) tablet 400 mg PO DAILY@1430 fluticasone propionate 50 mcg/actuation spray,suspension 1 spray INTRANASAL DAILY@2100 ascorbic acid (vitamin C) [Vitamin C] 500 mg Tablet 500 mg PO BID@0700,1730 aspirin 81 mg Tablet,Chewable 81 mg PO DAILY@2100 vitamin E acetate 200 unit Capsule 400 unit PO DAILY@0700 tacrolimus 0.5 mg capsule See Rx Instructions .ROUTE .COMPLEX Rx Instructions: TAKE 3 CAPSULES BY MOUTH EVERY MORNING AND TAKE 3 CAPSULES BY MOUTH EVERY EVENING cholecalciferol (vitamin D3) [Vitamin D3] 25 mcg (1,000 unit) Capsule 25 mcg PO DAILY mycophenolate sodium 180 mg tablet,delayed release (DR/EC) 180 mg PO QID Vitamin Plus Low Iron 27 mg iron- 1 mg tablet 27 tab PO DAILY losartan 50 mg tablet 50 mg PO DAILY hydralazine 100 mg tablet 100 mg PO TID Qty: 90 0RF clonidine HCl 0.1 mg Tablet 0.1 mg PO TID Qty: 90 0RF docusate sodium 100 mg Capsule 100 mg PO BID Qty: 60 0RF carvedilol 12.5 mg tablet 25 mg PO BID Qty: 180 3RF Rx Instructions: must administer with a meal/food prednisone 5 mg tablet 5 mg PO DAILY Qty: 30 0RF Discharge Orders: Discharge ED (Routine); Ordered 07/09/25 Ordered By: Irving Sultana Referrals: [facility] [place] [Outside] - 4-7 days Ale Olivier MD [Primary Care Provider, Family Practice] Adithya Mike [Physician, Opthalmology] - 1-3 days Discharge Diet: Advance as tolerated Discharge Activity: Resume usual activity Patient Instructions: Facial Fracture (ED), Opioid Safety Print Language: Prydeinig Coding Level of Care Code ED Social Media Community Manager for Tanya Neil
--- OUTSIDE RECORDS SUMMARY | 2025-07-09 06:54 | XMS_ITS | Clinical Summary ---
Author Organization Formerly [facility] Facility Address [address] [place] [id number] Care Team Providers Care Surveillance Officer Name Role Phone Unavailable Primary Care Provider [...] mg in the evening. Take with meals. 5 Active cholecalciferol (Vitamin D-[address]) 25 MCG (1000 UT) tablet Take 1,000 Units by mouth in the morning. Active diphenhydrAMINE (Benadryl Allergy) 25 MG tablet Take 25 mg by mouth Active Ferrous Sulfate (IRON PO) Take 1 tablet by mouth in the morning. 4 Active fluticasone (FLONASE) 50 MCG/ACT nasal spray Administer 1 spray into each nostril 1 (one) time each day 7 Active loperamide (IMODIUM) 2 MG capsule Take 2 mg by mouth in the morning and 2 mg at noon and 2 mg in the evening. 5 Active losartan (COZAAR) 50 MG tablet Take 50 mg by mouth in the morning and 50 mg in the evening. Active magnesium oxide (MAG-OX) 400 MG tablet Take 1 tablet by mouth 1 (one) time each day 4 Active mycophenolate (MYFORTIC) 180 MG EC tablet [...] morning and 1.5 mg in the evening. 5 Active 27-1 MG tablet Take 1 tablet by mouth 1 (one) time each day 5 Active alpha tocopherol (VITAMIN E) 200 units capsule Take 200 Units by mouth 1 (one) time each day Active Active Problems No known active problems Encounters Date Type Department Care Team Description 06/30/[address] [place] [address] Nephrology [facility], [facility] [address] [place] [address] Jerilyn Mike MD End stage renal disease; Dependence on renal dialysis 06/25/[address] [place] [address] [facility], [facility] [address] [place] [phone] Krupa Latif NP End stage renal disease; Dependence on renal dialysis 06/16/[address] [place] [address] [facility], [facility] [address] [place] [address] Krupa Latif NP End stage renal disease; Dependence on renal dialysis 06/11/[address] [place] [address] [facility], [facility] [address] [place] [address] Cat Leon NP End stage renal disease; Dependence on renal dialysis 06/03/2025 1:40 PM CDT Office Visit [facility], [facility] [address] [place] [phone] Jerilyn Mike MD Stage 5 chronic kidney disease (HCC) (Primary Dx); Kidney transplant status; Hypertensive chronic kidney disease with stage 1 through stage 4 chronic kidney disease, or unspecified chronic kidney disease; 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) 05/28/2025 Documentation Only [facility], [facility] [address] [place] [id number] Ayla Mueller MA 05/28/2025 Documentation Only [facility], [facility] [address] [place] [address] She Barajas MA 05/05/2025 Office Communication [facility], [facility] [address] [place] [address] Jerilyn Mike MD 05/05/2025 Transcribe Orders [facility], [facility] [address] [place] [address] Reddy Veliz MD Chronic kidney [...] Priority Date/Time Associated Diagnosis Comments HEMATOLOGY Routine 07/02/2025 HEMATOLOGY Routine 06/25/2025 HEMATOLOGY Routine 06/18/2025 HD KINETICS Routine 06/11/2025 [...] Last 3 Months Results * (ABNORMAL) HEMATOLOGY (07/02/2025) Only the most recent of5 resultswithin the time period is included. Pathologist [facility] Hemoglobin 9.0(L) 12.0 - 16.0 g/dL [facility] Hemoglobin x 3 27(L) 36.0 - 48.0 % [facility] 07/02/2025 07/03/2025 10: 12 AM CDT Narrative [facility] - 07/03/2025 Unless otherwise specified, test(s) performed at: [facility], [address] [place] [id number] BLENDER CONVEYOR OPERATOR: Baudilio Otoole M.D. For any questions, please call customer service at FREQUENCY:OTHER Resulting Agency Comment Specimen source: Blood us Jerilyn Mike MD LAB BLOOD ORDERABLES Final Re sult [email or web address] See order comments or contact performing lab Unknown, [place] * HD KINETICS (06/11/2025) Only the most recent of2 resultswithin the time period is included. Pathologist [facility] % Urea Reduction 78 65 - 80 % [facility] 06/11/2025 06/12/2025 12: 02 PM CDT Narrative [facility] - 06/13/2025 Unless otherwise specified, test(s) performed at: [facility], [address] [place] [id number] BLENDER CONVEYOR OPERATOR: Baudilio Otoole M.D. For any questions, please call customer service at FREQUENCY:MONTHLY Resulting Agency Comment Specimen source: Plasma us Jerilyn Mike MD LAB BLOOD ORDERABLES Final Re sult Performing Organization Address [facility] de Phone Number [email or web address] See order comments or contact performing lab Unknown, [place] * POST CHEMISTRY (06/11/2025) Only the most recent of2 resultswithin the time period is included. Pathologist [facility] BUN Post Dialysis 11 6 - 19 mg/dL [facility] 06/11/2025 06/12/2025 12: 02 PM CDT Narrative [facility] - 06/12/2025 Unless otherwise specified, test(s) performed at: [facility], [address] [place] [id number] BLENDER CONVEYOR OPERATOR: Baudilio Otoole M.D. For any questions, please call customer service at FREQUENCY:MONTHLY Resulting Agency Comment Specimen source: Plasma us Jerilyn Mike MD LAB BLOOD ORDERABLES Final Re sult Performing Organization Address [facility] de Phone Number [email or web address] See order comments or contact performing lab Unknown, [place] * IMMUNO CHEMISTRY (06/11/2025) Only the most recent of2 resultswithin the time period is included. Pathologist [facility] Hep B Surface Ag Negative Negative [facility] 06/11/2025 06/12/2025 4:5 0 PM CDT Narrative Resulting Agency Comment Specimen source: Serum us Jerilyn Mike MD LAB BLOOD ORDERABLES Final Re sult Performing Organization Address [facility] de Phone Number [email or web address] See order comments or contact performing lab Unknown, [place] * TRACE ELEMENTS (06/11/2025) Only the most recent of2 resultswithin the time period is included. Pathologist [facility] Aluminum <5 0 - 10 mcg/L [facility] Comment: This test was developed and its performance characteristics determined by [facility]. It has not been cleared or approved by the FDA. The laboratory is regulated under CLIA as qualified to perform high complexity testing. This test is used for clinical purposes. It should not be regarded as investigational or for research. 06/11/2025 06/12/2025 10: 08 AM CDT Narrative [facility] - 06/12/2025 Unless otherwise specified, test(s) performed at: [facility], [address] [place] [address] BLENDER CONVEYOR OPERATOR: Baudilio Otoole M.D. For any questions, please call customer service at FREQUENCY:MONTHLY Resulting Agency Comment Specimen source: Serum Jerilyn Mike MD LAB BLOOD ORDERABLES Final Re sult [facility] See order comments or contact performing lab Unknown, [place] * (ABNORMAL) [facility] Chemistry (06/11/2025) Only the most recent of4 [...] 06/13/2025 Unless otherwise specified, test(s) performed at: [facility], [address] [place] [address] BLENDER CONVEYOR OPERATOR: Baudilio Otoole M.D. For any questions, please call customer service at FREQUENCY:MONTHLY Resulting Agency Comment Specimen source: Serum us Jerilyn Mike MD LAB BLOOD ORDERABLES Edited R esult - Final Performing Organization Address [facility]/ZIP Co de Phone Number [email or web address] See order comments or contact performing lab Unknown, [place] * (ABNORMAL) SPECIAL CHEMISTRY (06/04/2025) Folate 12.8 ng/mL [facility] Comment: Reference Range: Deficient: <3.4 ng/mL Indeterminate: 3.4-5.4 ng/mL Normal: >5.4 ng/mL Vitamin B-12 1,333(H) 211 - 911 pg/mL [facility] Vitamin D, 25-OH, Total 25.1(L) 30.0 - 100.0 ng/mL [facility] Comment: Please Note: Effective August 07, 2023, the methodology for this test has changed to the [facility]. 06/04/2025 06/05/2025 9:0 4 AM CDT Narrative Resulting Agency Comment Specimen source: Serum us Jerilyn Mike MD LAB BLOOD BANK TEST ORDERABLE S Final Result Performing Organization Address City/[facility]/ZIP Co de Phone Number [email or web address] See order comments or contact performing lab [...] Serum 6.5 Anion Gap 11 Blood 05/26/2025 [facility] External Provider LAB BLOOD ORDERABLES Final Result [...] 8.7 Eosinophils 1.9 Basophils 0.8 Blood 05/26/2025 [facility] External Provider LAB BLOOD ORDERABLES Final Result from Last 3 Months Insurance [facility] Medicare Medicaid [place] ([id number])
--- OUTSIDE RECORDS SUMMARY | 2025-07-09 06:54 | XMS_ITS | Encounter Summary ---
Author Organization [facility] Address [address] [address] Phone Care Team Providers Care Itinerant Teacher Assistant Name Role Phone Unavailable Primary Care Provider Unavailabl e Reason for Referral * Consultation (Routine) - Closed Specialty Diagnoses / Procedures Referred By Contac t Referred To Contact Nephrology Diagnoses Kidney transplant status Pancreas transplant status (HCC) Chronic kidney disease, Stage V (HCC) Reddy Veliz MD [address] [facility] [address] [place] [address] Phone: tel: fax: Jerilyn Mike MD [address] [address] Phone: tel: fax: Referral ID Status Reason Start Date Expiration Date V isits Requested Visits Authorized [id number] Closed Consult and Treat 05/05/2025 05/05/2026 1 1 Encounter Details Date Type Department Care Team (Latest Contact Info) Description 05/05/2025 Transcribe Orders [facility] [address] [address] Reddy Veliz MD [id number] [facility] [id number] [place] [address] Chronic kidney disease, Stage V [...]
--- OUTSIDE RECORDS SUMMARY | 2025-07-09 06:55 | XMS_ITS | Data Portability ---
Author Organization [place] - [facility] Katherine, [place], [facility] Address [address] [address] Assessment No assessment recorded. Plan of Treatment Reminders Order Date Submit Date Provider Last Modified By Organization Details Last Modified Time Details Appointments None recorded. [facility] urinalysis, [facility] [address] [place] [address], [id number], 3 14:10:23 Referral cardiologis t referral 2024 025 [place] [address] [facility], [address] [place] [address] [address], [place], [address], 5 17:45:26 Procedures None recorded. Surgeries None recorded. Imaging None recorded. Medication Orders Macrobid 100 mg capsule [email or web address] [facility], [address], [place], [address], 5 11:17:46 Patient TargetsNo targets recorded. Patient InstructionsNo instructions recorded. 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 [place] bile essential hypertension Referring Physician: Ale Olivier, Family Medicine, Encounter Date: 01/22/2025 Results Created Date Observation Date Name Description Value Unit Range Abnormal Flag Note LastModifiedBy Organization Detail LastModifiedTime 01/11/20 23 01/10/2023 urina lysis , compl ete color Not Available [facility] ([facility]) [address] [place], [address], 01/09/2023 08:25:37 01/11/20 23 01/10/2023 urina lysis , compl ete clarity clear Not Available [facility] ([facility]) [address] [place], [address], 01/09/2023 08:25:37 01/11/20 23 01/10/2023 urina lysis , compl ete glucose negati ve Not Available [facility] ([facility]) [address] [place], [address], 01/09/2023 08:25:37 01/11/20 23 01/10/2023 urina lysis , compl ete bilirubin negati ve Not Available [facility] ([facility]) [address] [place], [address], 01/09/2023 08:25:37 01/11/20 23 01/10/2023 urina lysis , compl ete ketones negati ve Not Available [facility] ([facility]) [address] [place], [address], 01/09/2023 08:25:37 01/11/20 23 01/10/2023 urina lysis , compl ete specific gravity 1.005- 1.025 Not Available [facility] ([facility]) [address] [place], [address], 01/09/2023 08:25:37 01/11/20 23 01/10/2023 urina lysis , compl ete pH 5.0-7. 0 Not Available [facility] ([facility]) [address] [place], [address], 01/09/2023 08:25:37 01/11/20 23 01/10/2023 urina lysis , compl ete nitrate negati ve Not Available [facility] ([facility]) [address] [place], [address], 01/09/2023 08:25:37 01/11/20 23 01/10/2023 urina lysis , compl ete blood negati ve Not Available [facility] ([facility]) [address] [place], [address], 01/09/2023 08:25:37 01/11/20 23 01/10/2023 urina lysis , compl ete leukocytes negati ve Not Available [facility] ([facility]) [address] [place], [address], 01/09/2023 08:25:37 01/11/20 23 01/10/2023 urina lysis , compl ete WBC 0 Not Available [facility] ([facility]) [address] [place], [address], 01/09/2023 08:25:37 01/11/20 23 01/10/2023 urina lysis , compl ete RBC 0 Not Available [facility] ([facility]) [address] [place], [address], 01/09/2023 08:25:37 01/11/20 23 01/10/2023 urina lysis , compl ete epi cells 0 Not Available [facility] ([facility]) [address] [place], [address], 01/09/2023 08:25:37 01/11/20 23 01/10/2023 urina lysis , compl ete bacteria Not Available [facility] ([facility]) [address] [place], [address], 01/09/2023 08:25:37 01/11/20 23 01/10/2023 urina lysis , compl ete other Not Available [facility] ([facility]) [address] [place], [address], 01/09/2023 08:25:37 01/11/20 23 01/10/2023 urina lysis , dipst ick Leukocytes Negati ve Not Available [facility] ([facility]) [address] [place], [address], 01/09/2023 12:42:26 01/11/20 23 01/10/2023 urina lysis , dipst ick Nitrite negati ve Not Available [facility] ([facility]) [address] [place], [address], 01/09/2023 12:42:26 01/11/20 23 01/10/2023 urina lysis , dipst ick Urobilinogen .2 Not Available [facility] ([facility]) [address] [place], [address], 01/09/2023 12:42:26 01/11/20 23 01/10/2023 urina lysis , dipst ick pH 5.5 Not Available [facility] ([facility]) [address] [place], [address], 01/09/2023 12:42:26 01/11/20 23 01/10/2023 urina lysis , dipst ick Blood Negati ve Not Available [facility] ([facility]) [address] [place], [address], 01/09/2023 12:42:26 01/11/20 23 01/10/2023 urina lysis , dipst ick Specific G[place] 1.025 Not Available [facility] ( [facility]) [address] [place], [address], 01/09/2023 12:42:26 01/11/20 23 01/10/2023 urina lysis , dipst ick Ketone Negati ve Not Available [facility] ([facility]) [address] [place], [address], 01/09/2023 12:42:26 01/11/20 23 01/10/2023 urina lysis , dipst ick Bilirubin Negati ve Not Available [facility] ([facility]) [address] [place], [address], 01/09/2023 12:42:26 01/11/20 23 01/10/2023 urina lysis , dipst ick Glucose Negati ve Not Available [facility] ([facility]) [address] [place], [address], 01/09/2023 12:42:26 01/11/20 23 01/10/2023 urina lysis , dipst ick Appearance Clear Not Available [facility] ([facility]) [address] [place], [address], 01/09/2023 12:42:26 01/11/20 23 01/10/2023 urina lysis , dipst ick Color Dark Yellow Not Available [facility] ([facility]) [address] [place], [address], 01/09/2023 12:42:26 01/11/20 23 01/10/2023 urina lysis , dipst ick Protein 2000+ Not Available [facility] ([facility]) [address] [place], [address], 01/09/2023 12:42:26 Result Notes None recorded. Problems Name Problem SNOMED Code Status Onset Date Resolution Date Notes Provider Name and Address Organization Details Recorded Time Inflammator y disease of liver 504053706 Active 2021 Hepatitis ; Story: C; Recorded 10:18AM by Erin Zuleta, Office Visit; Promoted; acuity set as *; CAROL FOWLER [facility], L.LMarieCMarie 5 10:35:11 Hypertensiv e disorder 38980612 Active 2024 [facility] 5 08:56:32 Osteoarthri tis 839814431 Active 2024 CAROL HURSTH [facility] Carolina[facility] 5 08:56:42 Depressive disorder 79717695 Active 2024 [facility] 5 11:51:54 Macrocytosi s 008405612 Active 2024 [facility] René.CMarie 5 08:57:01 Type 1 diabetes mellitus 44402455 Active 2024 [facility] Trey.L[facility] 5 11:19:19 Glaucoma 31706417 Active 2024 [facility] 5 11:51:23 Hypercholes terolemia 12310641 Active 2024 [facility] 5 11:51:35 Problem Notes None recorded. Procedures Surgical History Date Name Laterality Status Provider Name and Address Organization Details Recorded Time 2022 Breast augmentation w/implt completed AUBR [facility], CarolinaL.CMarie 3 12:07:09 2021 esophagogastroduodenoscopy completed CAROL RYAN PRINCE FOWLER [facility], [place] 5 10:37:39 2019 mammography completed CAROL FOWLER [facility], [place] 5 08:57:57 2009 colonoscopy completed CAROL FOWLER [facility], L.L.C. 5 10:37:11 2001 transplantation of pancreas completed Tam Olivier MD [address] [place] [address], [address], [facility], L.L.CMarie 5 11:48:58 extraction of cataract completed CAROL FOWLER [facility], [place] 5 08:58:11 transplant of kidney completed CAROL FOWLER [facility], René.CMarie 5 08:58:39 hysterectomy completed [facility], [place] 5 08:58:48 Shoulder joint surgery completed CAROL FOWLER [facility], BetzyCMarie 5 08:59:00 Imaging Results None recorded. Procedure Notes None recorded. Medical Equipment None Reported. Allergies Allergen ID Allergen Name Allergen Category Reaction Reaction Severity Criticality Documentation Date Start Date Code Code System Note Provider Name and Address Organization Details Recorded Time 28139 atorvasta tin calcium propylene glycol solvate Not available other Not available Not available 05/06/2023 58800 93 RxNorm React ion: STATI NS _deat hly aller gic_; Comme nt: Recor ded 07/15 10:18 AM by Erin Zuleta Offic e Visit ; Promo maranda; Signi bret ce: *; Reaso n: Drug aller gy; ; Not Available [facility] 3 02:28:10 72630 codeine hydrochlo ride Not available edema Not available Not available 05/06/2023 23178 66 RxNorm React ion: Edema ; Comme nt: Recor ded 07/15 10:18 AM by Erin Zuleta Offic e Visit ; Promo maranda; Signjulia queen ce: *; ; Not Available [facility] 3 02:28:10 76852 Substance with sulfonami de structure and antibacte rial mechanism of action (substanc e) medicatio n Not available Not available Not available 05/06/2023 85271 8003 SNOMED Comme nt: Recor ded 07/15 10:18 AM by Erin Zuleta, Offic e Visit ; Berhane low; Dora queen ce: *; ; Not Available [facility] 3 02:28:10 872 codeine medicatio n rash moderate low 01/09/2023 2670 RxNorm CAROL BRIAN MALCOLM [facility] 3 12:43:50 Medications Name Sig Start Date Stop Date Status Note LastModified by Organization Details LastModified Time losartan 50 mg tablet TAKE 1 TABLET BY MOUTH TWICE DAILY active Not Available Not Available No t Available nifedipin e ER 30 mg tablet,ex tended release 24 hr TAKE 1 TABLET BY MOUTH TWICE DAILY 01/09 completed Not Available Not Available Not Available amoxicill in 500 mg capsule 01/22 completed Not Available Not Available Not Available latanopro st 0.005 % eye drops INSTILL 1 DROP INTO EACH EYE AT BEDTIME 01/22 completed Not Available Not Available Not Available carvedilo l 25 mg tablet TAKE 1 TABLET BY MOUTH TWICE DAILY WITH MEALS 01/22 completed Not Available Not Available Not Available carvedilo l 12.5 mg tablet TAKE 2 TABLETS BY MOUTH TWICE DAILY take WITH food active Not Available Not Available No t Available loperamid e 2 mg capsule TAKE 1 CAPSULE BY MOUTH THREE TIMES DAILY NEEDED active Not Available Not Available No t Available cefpodoxi me 200 mg tablet TAKE 1/2 (ONE-JOSE F) TABLET BY MOUTH EVERY 12 HOURS FOR 10 DAYS TAKE WITH FOOD 01/22 completed Not Available Not Available Not Available cephalexi n 250 mg capsule TAKE 1 CAPSULE BY MOUTH TWICE DAILY FOR 7 DAYS 01/22 completed Not Available Not Available Not Available Flonase 50 mcg/DOSE nasal inhaler 01/22 completed 0; Recorded 02/17/20 22 1:42PM by Ronaldo Mccarty, Office Visit; Not Available Not Available Not Available prednison e 5 mg tablet TAKE 1 TABLET BY MOUTH ONCE DAILY active Not Available Not Available No t Available metronida zole 500 mg tablet 01/09 completed Not Available Not Available Not Available ciproflox acin 500 mg tablet TAKE 1 TABLET BY MOUTH TWICE DAILY FOR 7 DAYS 01/22 completed Not Available Not Available Not Available magnesium oxide 400 mg (241.3 mg magnesium ) tablet TAKE 1 TABLET BY MOUTH EVERY DAY active Not Available Not Available No t Available gentamici n 0.3 % eye drops 01/22 completed Not Available Not Available Not Available OneTouch Ultra Test strips USE 1 STRIP DIRECTED TWICE DAILY BEFORE MEALS AND NEEDED active Not Available Not Available No t Available cephalexi n 500 mg capsule TAKE 1 CAPSULE BY MOUTH EVERY 12 HOURS FOR 10 DAYS 01/22 completed Not Available Not Available Not Available nitroglyc steven 0.4 mg sublingua l tablet TAKE 1 TABLET BY MOUTH NEEDED FOR CHEST PAIN. THEN REPORT TO ER. MAX DAILY DOSE OF 3 TABLETS active Not Available Not Available No t Available losartan 100 mg tablet TAKE 1 TABLET BY MOUTH EVERY DAY active Not Available Not Available No t Available fluticaso ne propionat e 50 mcg/actua tion nasal spray,jose pension USE 1 SPRAY each nostril TWICE DAILY active Not Available Not Available No t Available tacrolimu s 0.5 mg capsule, immediate -release TAKE 2 CAPSULES BY MOUTH EVERY MORNING AND TAKE 3 CAPSULES BY MOUTH EVERY EVENING active Not Available Not Available No t Available Benadryl Allergy 25 mg tablet active 0; Recorded 02/17/20 22 1:41PM by Ronaldo Mccarty, Office Visit; Not Available Not Available Not Available ezetimibe 10 mg tablet TAKE 1/2 TABLET BY MOUTH EVERY DAY 01/22 completed Not Available Not Available Not Available rosuvasta tin 5 mg tablet TAKE 1 TABLET BY MOUTH EVERY DAY 01/22 completed Not Available Not Available Not Available Theragran -M 27 mg-0.4 mg tablet 01/22 completed 0; Recorded 02/17/20 22 1:43PM by Ronaldo Mccarty, Office Visit; Not Available Not Available Not Available mycopheno late sodium 180 mg tablet,de layed release TAKE 1 TABLET BY MOUTH FOUR TIMES DAILY active Not Available Not Available No t Available nitrofura ntoin monohydra te/macroc rystals 100 mg capsule TAKE 1 CAPSULE BY MOUTH EVERY 12 HOURS FOR 7 DAYS 01/22 completed Not Available Not Available Not Available aspirin qd active 0; Recorded 02/17/20 22 1:44PM by Ronaldo Mccarty, Office Visit; Not Available Not Available Not Available metronida zole bid 01/22 completed Recorded 10/20/19 9:16AM by Carol Fowler LPN, Phone Encounte r; Refill Quantity : 0; Not Available Not Available Not Available Flonase each nostril BID 01/22 completed 35444; Recorded 02/24/20 9:46AM by Ronaldo Mccatry (Authori zed through Ale Olivier MD), Refill Request; Refill Quantity : 1; Each; Not Available Not Available Not Available MagOx 01/22 completed 0; Recorded 02/17/20 1:43PM by Ronaldo Mccarty, Office Visit; Not Available Not Available Not Available loperamid e bid 01/22 completed 0; Recorded 02/17/20 1:44PM by Ronaldo Mccarty, Office Visit; Not Available Not Available Not Available carvedilo l two times daily 01/22 completed 0; Recorded 02/17/20 1:44PM by Ronaldo Mccarty, Office Visit; Not Available Not Available Not Available Prograf two times daily active 0; Recorded 02/17/20 1:44PM by Ronaldo Mccarty, Office Visit; Not Available Not Available Not Available Vitamin D3 active 0; Recorded 02/17/20 1:42PM by Ronaldo Mccarty, Office Visit; Not Available Not Available Not Available Cozaar active 0; Recorded 02/17/20 1:43PM by Ronaldo Mccarty, Office Visit; Not Available Not Available Not Available Magnesium -Oxide qd 01/22 completed 0; Recorded 02/17/20 1:44PM by Ronaldo Mccarty, Office Visit; Not Available Not Available Not Available Vitamin qd 01/22 completed VO CH/jl; 28620; Recorded 08/17/20 4:59PM by Vicky Ngo LPN (Authori zed through Aaron Lo DO), Refill Request; Refill Quantity : 0; Not Available Not Available Not Available Vitamin-C active 0; Recorded 02/17/20 1:44PM by Ronaldo Mccarty, Office Visit; Not Available Not Available Not Available Myfortic QID 01/22 completed 0; Recorded 05/11/20 22 1:44PM by Ronaldo Mccarty, Office Visit; Not Available Not Available Not Available 28 mg iron-800 mcg tablet TAKE 1 TABLET BY MOUTH EVERY DAY active Not Available Not Available No t Available Vitamins Plus Low Iron 27 mg iron-1 mg tablet TAKE 1 TABLET BY MOUTH EVERY DAY active Not Available Not Available No t Available Accu-Chek Fastclix Lancet Drum USE TO TEST DAILY active Not Available Not Available No t Available OneTouch Ultra2 Meter USE TO TEST BLOOD SUGAR TWICE DAILY AND NEEDED active Not Available Not Available No t Available OneTouch Delica Plus Lancet 33 gauge USE TO CHECK BLOOD GLUCOSE LEVELS TWICE A DAY AND NEEDED active Not Available Not Available No t Available Vitals Date Recorded Body height Body mass index (BMI) Body weight Oxygen saturation Oxygen saturation in Arterial blood by Pulse oximetry Heart rate Body temperature Systolic And Diastolic Provider Name and Address Organization Details Last Updated DateTime 3 157.48 cm 17.9 kg/m2 71404.0 5 g 98 % 98 % 78 /min 98.6 [degF] 150/80 mm[Hg] CAROL FOWLER [facility] L.L.CMarie 3 12:43:24 Date Recorded Body height Body mass index (BMI) Body weight Body temperature Oxygen saturation Oxygen saturation in Arterial blood by Pulse oximetry Heart rate Systolic And Diastolic Provider Name and Address Organization Details Last Updated DateTime 5 157.48 cm 16.5 kg/m2 25168.3 1 g 98.6 [degF] 99 % 99 % 67 /min 145/78 mm[Hg] CAROL FOWLER [facility], L.L.CMarie 5 11:13:40 Social History Question Answer Notes LastModified by Organizat ion Details LastModified Time Tobacco Smoking Status Former Smoker CAROL FOWLER [facility], L.L.CMarie 01/22/2025 11:21:29 At What Age Did You Start Smoking Tobacco? 18 [email or web address] Information not available 01/09/2023 How Much Tobacco Do You Smoke? 1 PPW [email or web address] Information not available 01/09/2023 Sex: Unknown Functional Status None recorded. Mental Status None recorded. Family History Relationship Description Onset Age of this Age Resolved Age Notes LastModified by Organization Details LastModified Time Father Myocardial infarction 78 [email or web address] Not available 11:20:41 Mother Diabetes mellitus [email or web address] Not available 01/07 11:20:53 Brother Myocardial infarction 36 [email or web address] Not available 11:21:13 Medical History Condition Response Coronary Artery Disease N Other N Gout N Kidney Stones N Blood Diseases N Hyperthyroidism N Breast Cancer N Blood Transfusion N Hypothyroidism N Depression N COPD N Lung Disease N Defects or Inherited Disease N Developmental or Behavioral Disorders N Breast Problem N Difficulty Swallowing N Anesthesia Complications N Anxiety Disorder N Meniere's disease N Muscle, Joint, or Bone Problems N Vision or Eye Problems Y Arthritis Y Polyps N Infertility N Cancer N Varicosities N Stroke N Endometriosis N Bladder or Kidney Problems Y High Cholesterol Y Liver Disease Y Headaches N Fibromyalgia N Kidney Disease N Allergies/Hayfever Y Heart Problems N Ear or Hearing Problems N Hospitalizations N Thyroid Problems N GI Problems N ADD/ADHD N Skin Problems N Eating Disorder N Anemia N Constipation N Mental Illness N Ovarian Cancer N Diabetes Y Bedwetting N Seizures/Epilepsy N Tuberculosis N Eczema N Diverticulitis N Abuse/Domestic Violence N Asthma N Reflux/GERD N Hepatitis Y Heart Disease N Pulmonary Embolism N Chronic Ear Infections N Pre-Eclampsia N Hypertension Y Chicken Pox N Autism Spectrum Disorder (ASD) N Osteoporosis N Thrombophilias N Gynecological History Statement/Question Response Date of Last Pap Smear Obstetrics History GPAL:G 9 P 1 0 8 1 Type Value Full Term 1 Spontaneous 8 Living 1 Total 9 Immunizations Vaccine Type Date Status Note Provider Nam e and Address Organization Details Recorded Time influenza, split (incl. purified surface antigen) 0 completed Not Available [facility] 01/22/2025 10:55:14 Influenza, split virus, trivalent, PF 5 completed Not Available [facility] 01/22/2025 10:55:14 Pneumococcal conjugate PCV 13 5 completed Not Available [facility] 01/22/2025 10:55:14 Tdap 6 completed Not Available [facility] 01/22/2025 10:55:14 Influenza, split virus, trivalent, PF 8 completed Not Available [facility] 01/22/2025 10:55:14 Influenza, split virus, quadrivalent, PF 9 completed Not Available [facility] 01/22/2025 10:55:14 Hep B, adult 0 completed Not Available [facility] 01/22/2025 10:55:14 Hep A, adult 0 completed Not Available [facility] 01/22/2025 10:55:14 COVID-19, mRNA, LNP-S, PF, 100 mcg/0.5mL dose or 50 mcg/0.25mL dose 1 completed Not Available [facility] 01/22/2025 10:55:14 Influenza, split virus, quadrivalent, PF 1 completed Not Available [facility] 01/22/2025 10:55:14 COVID-19, mRNA, LNP-S, PF, 100 mcg/0.5mL dose or 50 mcg/0.25mL dose 1 completed Not Available [facility] 01/22/2025 10:55:14 COVID-19, mRNA, LNP-S, PF, 100 mcg/0.5mL dose or 50 mcg/0.25mL dose 2 completed Not Available [facility] 01/22/2025 10:55:14 Influenza, split virus, trivalent, preservative 4 completed Not Available [facility] 05/06/2023 02:27:37 Influenza, split virus, trivalent, preservative 7 completed Not Available [facility] 05/06/2023 02:27:37 Past Encounters Encounter ID Performer Location Encounter Start Date Encounter Closed Date Diagnosis/Indication Diagnosis SNOMED-CT Code Diagnosis ICD10 Code Diagnosis IMO Codes Diagnosis Note [id number] Ale Olivier MD [facility] ([facility]) [address] [place] [phone] 01/09/2023 12:36:10 01/09/2023 14:30:26 Dysuria 67220281 R30.0 pt left a u/a at the hospital this morning, we will have her do u/a here. [id number] Ale Olivier MD [facility] ([facility]) [address] [place] [phone] 01/22/2025 10:54:45 02/06/2025 06:13:31 Tobacco user 332833393 Z72.0 Screening colonoscopy 44 1468715 Z12.11 Declined, 01/22/25 Screening mammography 24 393394 Z12.31 Declined 01/22/25 Labile ess ential hypertension 582950189 I10 Viral hepatitis C 866406 07 B19.20 History of renal transplant 719767501 Z94.0 80018222 Health Concerns Section Related Observation LastModified by Organization Detai ls LastModified Time None Recorded Concern Status LastModified by Organization Details LastModified Time None Recorded Advance Directives Directive None Recorded Payers Insurance Date Sequence Insurance Name Policy Number Policy Pereira Covered Member ID Pereira Member ID Guarantor Name 06/03/2025 [place] - [facility] (MEDICARE) Yu Nunez [id number] Yu Nunez 06/03/2025 [place] [facility] (INSTITUTION[facility] L) Yu Nunez [id number] Yu Nunez 06/03/2025 2 [facility] (MEDICARE REPLACEMENT/A DVANTAGE - HMO) Yu Nunez [id number] Yu Nunez 01/22/2025 1 [place] Yu Nunez [id number] Yu Nunez 06/03/2025 1 [place] Yu Nunez [id number] Yu Nunez Notes Date Note Type Note Provider Name and Address Organization Details Recorded Time 01/10/20 23 text/htm l Lower Urinary Tract Symptoms (LUTS)Reported by PatientHPIFor associated symptoms, patient reportsabdominal pain,nausea,vaginal discharge, andvaginal itching or burningbut reportsno flank painandno fever. For quality, patient reportstender,aching, andpressure. For severity, patient reportsnot changing. For onset/timing, patient reportsconstant. For duration, patient reports2-3 weeks. For context, patient reportshistory of urinary tract infection.ROS as noted in the HPI 1.5-2 weeks, [place] when I pee and for a long time afterwards, I had some pink in my pee. called monday binta for appt, no fever/chills, Ale Olivier MD [address] [place] [address], [phone], [facility] L[facility]LMarieC. 01/09/2023 13:06:19 01/23/20 25 text/htm l Hypertension IM/FMReported by PatientHPIFor associated symptoms, patient reportsfatigueandheadachesbut reportsno shortness of breath,no palpitations, andno tachycardia. For quality, patient reportshere for check-upandfatigue. For alleviating factors, patient reportsmedication. For self care, patient reportsnon-smoker.ROS as noted in the HPI Pt has not f/u on her chronic conditions in years.... The last time I saw her for routine follow-up was 05/2020. she has been keeping a list of BP at home - they been ihre544/103, 194/90. I already took my BP meds back down from the high dose they had me start. I'm down to taking one of the BP pills. Carvedilol 1 in am and one in pm. and losartan 50mg 1 tab in am and one tab in pm.when I was on the high dosing for 2 weeks I got terrible tiredness and [place].I've had my BP cuff for 23 years. coming in Monday to do labs at the hospital.... Ale Olivier MD [address] [place], [address], [facility] 02/05/2025 16:00:26 OBGyn Episode No OBEpisode recorded.
--- NOTE | 2025-07-09 06:58 | ECG_ITS ---
[facility]09 Pat Name: Yu Nunez Department: Room: Gender: Female [employer]mat Cdl A Driver: : 1960 Requested By: Irving Sultana Order Number: [id number] Yon MD: Joseph Leonard M.D. Measurements Intervals [place] Rate: 83 P: 34 TN: 154 QRS: 18 QRSD: 82 T: 91 QT: 360 QTc: 423 Interpretive Statements SINUS RHYTHM NONSPECIFIC T-WAVE ABNORMALITY Compared to ECG 06/23/2025 13:39:33 T-wave abnormality now present Electronically Signed On 07-10-2025 08:37:14 CDT by Joseph Leonard M.D. [email or web address] [id number]
[2025-07-09 07:11] LABS: Hematocrit 30.4 % (36-47); Hemoglobin 9.70 g/dL (11.27-16.99); Mean Corpuscular HGB Conc 31.9 g/dL (30-55); Mean Corpuscular Hemoglobin 31.7 pg (27-33); Mean Corpuscular Volume 99.3 fl (85-98); Nucleated Red Blood Cells % 0 %; Platelet Count 213 10^3/cmm (157-399); Red Blood Count 3.06 10^6/uL (3.85-5.65); White Blood Count 9.73 10^3/uL (3.29-11.43)
[2025-07-09] MEDS: hyDRALAzine 20 mg/mL INJ 1 mL 10 MG IVP (07:18)
[2025-07-09 07:20] VITALS: BP 233/123; PULSE 80; O2SAT 93
[2025-07-09 07:42] VITALS: BP 222/119; PULSE 82; O2SAT 92
[2025-07-09 07:54] LABS: Alanine Aminotransferase 34 U/L (0-33); Albumin Level 3.6 g/dL (3.5-5.2); Alkaline Phosphatase 75 U/L (35-105); Anion Gap 20.7 (5-19); Aspartate Amino Transferase 37 U/L (0-32); Blood Urea Nitrogen 47 mg/dL (8-23); Calcium 8.3 mg/dL (8.5-10.5); Carbon Dioxide 22 mmol/L (22-29); Chloride 96 mmol/L (98-107); Creatinine Clr Calc Pharmacy 12.2257; Globulin 2.3 g/dL (1.3-4.6); Glucose 114 mg/dL (65-115); Osmolality Calculated 291 mOsm/kg (285-295); Potassium 4.7 mmol/L (3.5-5.1); Sodium 134 mmol/L (136-145); Total Protein 5.9 g/dL (6.6-8.7)
[2025-07-09 08:40] VITALS: BP 202/92; PULSE 85; O2SAT 91
--- NOTE | 2025-07-09 08:44 | PC.NURSE ---
LIDOCAINE SCANNED AND HANDED TO PROVIDER FOR ADMINISTRATION.
[2025-07-09 09:11] LABS: Prothrombin Time 13.30 SECONDS (12.1-14.9)
[2025-07-09 09:12] VITALS: BP 178/91; PULSE 83; O2SAT 90
[2025-07-09 09:12] LABS: INR 0.95 (0.8-1.2)
[2025-07-09 09:28] VITALS: BP 183/90; PULSE 85; O2SAT 90
== END 2025-07-09 09:29 | disposition home or self-care (01) ==
PROVIDERS: Emergency Provider Emergency Medicine; PCP Family Medicine
DX: S02.40CA Maxillary fracture, right side, initial encounter for closed fracture (principal); H40.059 Ocular hypertension, unspecified eye; Z79.82 Long term (current) use of aspirin; Z72.0 Tobacco use; N18.6 End stage renal disease; Z99.2 Dependence on renal dialysis; W19.XXXA Unspecified fall, initial encounter
CPT/HCPCS: 36415; 70450; 70486; 71045; 72125; 80053; 85025; 85610; 93005; 96374; 99285; J0360; J9999

== ENCOUNTER 2025-07-10 13:58 | Inpatient (IN) | payer OTHER, MEDICAID, SELFPAY ==
[2025-07-10] VITALS (23 sets, daily range): BP systolic 128–240; BP diastolic 55–110; PULSE 75–87; RESP 10–18; TEMP 37.3; O2SAT 87–99; BMI 21.2
--- NOTE | 2025-07-10 14:02 | XR_ITS ---
WS: [id number] XR hip LT 2-3V wo/w pel* [id number] REASON FOR EXAM: pain FINDINGS: No fracture or focal bone lesion. Mild narrowing of the joint space with mild subchondral sclerosis and osteophytosis. Mild osteophytosis of the femoral head. XR/XR hip LT 2-3V wo/w pel* [id number] IMPRESSION: Mild osteoarthritis with no acute abnormality.
--- NOTE | 2025-07-10 14:05 | PC.NURSE ---
PATIENT PLACED ON 2 L NC DUE TO O2 SATURATION BELOW 88%.
--- OUTSIDE RECORDS SUMMARY | 2025-07-10 14:09 | XMS_ITS | Encounter Summary ---
Author Organization [facility] Address [address] [address] Phone Care Team Providers Care Homeowner Association Manager Name Role Phone Unavailable Primary Care Provider Unavailabl e Reason for Referral * Consultation (Routine) - Closed Specialty Diagnoses / Procedures Referred By Contac t Referred To Contact Nephrology Diagnoses Kidney transplant status Pancreas transplant status (HCC) Chronic kidney disease, Stage V (HCC) Reddy Veliz MD [address] [facility] [address] [place] [address] Phone: tel: fax: Jerilyn Mike MD [address] [address] Phone: tel: fax: Referral ID Status Reason Start Date Expiration Date V isits Requested Visits Authorized [id number] Closed Consult and Treat 05/05/2025 05/05/2026 1 1 Encounter Details Date Type Department Care Team (Latest Contact Info) Description 05/05/2025 Transcribe Orders [facility] [address] [address] Reddy Veliz MD [address] [facility] [address] [place] [id number] [place] [address] Chronic kidney disease, Stage V [...]
--- OUTSIDE RECORDS SUMMARY | 2025-07-10 14:09 | XMS_ITS | Clinical Summary ---
Author Organization [facility] Facility Address [address] [place] [address] Care Team Providers Care Structural Engineering Project Manager Name Role Phone Unavailable Primary Care [...] Type Department Care Team Description 06/30/[address] [place] [address] Nephrology [facility], [facility] [address] [place] [address] Jerilyn Mike MD End stage renal disease; Dependence on renal dialysis 06/25/[address] [place] [address] [facility], [facility] [address] [place] [phone] Krupa Latif NP End stage renal disease; Dependence on renal dialysis 06/16/[address] [place] [address] [facility], [facility] [address] [place] [address] Krupa Latif NP End stage renal disease; Dependence on renal dialysis 06/11/[address] [place] [address] [facility], [facility] [address] [place] [address] Cat Leon NP End stage renal disease; Dependence on renal dialysis 06/03/2025 1:40 PM CDT Office Visit [facility], [facility] [address] [place] [phone] Jerilyn Mike MD Stage 5 chronic kidney disease (HCC) (Primary Dx); Kidney transplant status; Hypertensive chronic kidney disease with stage 1 through stage 4 chronic kidney disease, or unspecified chronic kidney disease; 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) 05/28/2025 Documentation Only [facility], [facility] [address] [place] [id number] Ayla Mueller MA 05/28/2025 Documentation Only [facility], [facility] [address] [place] [address] She Barajas MA 05/05/2025 Office Communication [facility], [facility] [address] [place] [address] Jerilyn Mike MD 05/05/2025 Transcribe Orders [facility], [facility] [address] [place] [address] Reddy Veliz MD Chronic kidney [...] resultswithin the time period is included. Pathologist [facility] [place] Hemoglobin 9.0(L) 12.0 - 16.0 g/dL [facility] Hemoglobin x 3 27(L) 36.0 - 48.0 % [employer] 07/02/2025 07/03/2025 10: 12 AM CDT Narrative [facility] - 07/03/2025 Unless otherwise specified, test(s) performed at: [facility], [address] [place] [address] ELECTROPLATER HELPER: Baudilio Otoole M.D. For any questions, please call customer service at FREQUENCY:OTHER Resulting Agency Comment Specimen source: Blood us Jerilyn Mike MD LAB BLOOD ORDERABLES Final Re sult [facility] See order comments or contact performing lab Unknown, [place] * HD [employer]ETICS (06/11/2025) Only the most recent of2 resultswithin the time period is included. Pathologist [facility] [place] % Urea Reduction 78 65 - 80 % [employer] [facility] 06/11/2025 06/12/2025 12: 02 PM CDT Narrative [facility] - 06/13/2025 Unless otherwise specified, test(s) performed at: [facility], [address] [place] [address] ELECTROPLATER HELPER: Baudilio Otoole M.D. For any questions, please call customer service at FREQUENCY:MONTHLY Resulting Agency Comment Specimen source: Plasma us Jerilyn Mike MD LAB BLOOD ORDERABLES Final Re sult Performing Organization Address [facility] de Phone Number [facility] See order comments or contact performing lab Unknown, [place] * POST CHEMISTRY (06/11/2025) Only the most recent of2 resultswithin the time period is included. Pathologist [facility] [place] BUN Post Dialysis 11 6 - 19 mg/dL [facility] 06/11/2025 06/12/2025 12: 02 PM CDT Narrative [facility] - 06/12/2025 Unless otherwise specified, test(s) performed at: [facility], [address] [place] [address] ELECTROPLATER HELPER: Baudilio Otoole M.D. For any questions, please call customer service at FREQUENCY:MONTHLY Resulting Agency Comment Specimen source: Plasma us Jerilyn Mike MD LAB BLOOD ORDERABLES Final Re sult Performing Organization Address [facility] de Phone Number [facility] See order comments or contact performing lab Unknown, [place] * IMMUNO CHEMISTRY (06/11/2025) Only the most recent of2 resultswithin the time period is included. Pathologist [facility] [place] Hep B Surface Ag Negative Negative [facility] 06/11/2025 06/12/2025 4:5 0 PM CDT Narrative Resulting Agency Comment Specimen source: Serum us Jerilyn Mike MD LAB BLOOD ORDERABLES Final Re sult Performing Organization Address [facility] de Phone Number [facility] See order comments or contact performing lab Unknown, [place] * TRACE ELEMENTS (06/11/2025) Only the most recent of2 resultswithin the time period is included. Pathologist [facility] [place] Aluminum <5 0 - 10 mcg/L [facility] Comment: This test was developed and its performance characteristics determined by [facility]. It has not been cleared or approved by the FDA. The laboratory is regulated under CLIA as qualified to perform high complexity testing. This test is used for clinical purposes. It should not be regarded as investigational or for research. 06/11/2025 06/12/2025 10: 08 AM CDT Narrative [facility] - 06/12/2025 Unless otherwise specified, test(s) performed at: [facility], [address] [place] [address] ELECTROPLATER HELPER: Baudilio Otoole M.D. For any questions, please call customer service at FREQUENCY:MONTHLY Resulting Agency Comment Specimen source: Serum Jerilyn Mike MD LAB BLOOD ORDERABLES Final Re sult [facility] See order comments or contact performing lab Unknown, [place] * (ABNORMAL) [facility] (06/11/2025) Only the most recent of4 [...] 06/13/2025 Unless otherwise specified, test(s) performed at: [facility], [address] [place] [address] ELECTROPLATER HELPER: Baudilio Otoole M.D. For any questions, please call customer service at FREQUENCY:MONTHLY Resulting Agency Comment Specimen source: Serum us Jerilyn Mike MD LAB BLOOD ORDERABLES Edited R esult - Final Performing Organization Address [facility]/ZIP Co de Phone Number [facility] See order comments or contact performing lab Unknown, [place] * (ABNORMAL) SPECIAL CHEMISTRY (06/04/2025) Folate 12.8 ng/mL [facility] Comment: Reference Range: Deficient: <3.4 ng/mL Indeterminate: 3.4-5.4 ng/mL Normal: >5.4 ng/mL Vitamin B-12 1,333(H) 211 - 911 pg/mL [facility] Vitamin D, 25-OH, Total 25.1(L) 30.0 - 100.0 ng/mL [facility] Comment: Please Note: Effective August 07, 2023, the methodology for this test has changed to the [facility]. 06/04/2025 06/05/2025 9:0 4 AM CDT Narrative Resulting Agency Comment Specimen source: Serum us Jerilyn Mike MD LAB BLOOD BANK TEST ORDERABLE S Final Result Performing Organization Address City/[facility]/ZIP Co de Phone Number [facility] See order comments or contact performing lab [...] Serum 6.5 Anion Gap 11 Blood 05/26/2025 [facility] External Provider LAB BLOOD ORDERABLES Final [...] 8.7 Eosinophils 1.9 Basophils 0.8 Blood 05/26/2025 [facility] External Provider LAB BLOOD ORDERABLES Final Result from Last 3 Months Insurance [facility] Medicare Medicaid [place] ([id number])
--- OUTSIDE RECORDS SUMMARY | 2025-07-10 14:09 | XMS_ITS | Data Portability ---
Author Organization [place] - Danie Walsh [facility], [place], [facility] Address [address] [address] Assessment No assessment recorded. Plan of Treatment Reminders Order Date Submit Date Provider Last Modified By Organization Details Last Modified Time Details Appointments None recorded. Lab urinalysis, [facility] [address] [place] [address], [address], 3 14:10:23 Referral cardiologis t referral 2024 025 [place] [address] [facility], [address] [place] [address] [address], [address], 5 17:45:26 Procedures None recorded. Surgeries None recorded. Imaging None recorded. Medication Orders Macrobid 100 mg capsule 2022 023 [email or web address] 40 [facility], [address], [place], [address], 5 11:17:46 Patient TargetsNo targets recorded. Patient InstructionsNo instructions recorded. 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 for [place] bile essential hypertension Referring Physician: Ale Olivier, Family Medicine, Encounter Date: 01/22/2025 Results Created Date Observation Date Name Description Value Unit Range Abnormal Flag Note LastModifiedBy Organization Detail LastModifiedTime 01/11/20 23 01/10/2023 urina lysis , compl ete color Not Available [facility] ([facility]) [address] [place], [address], 01/09/2023 08:25:37 01/11/20 23 01/10/2023 urina lysis , compl ete clarity clear Not Available [facility] ([facility]) [address] [place], [address], 01/09/2023 08:25:37 01/11/20 23 01/10/2023 urina lysis , compl ete glucose negati ve Not Available [facility] ([facility]) [address] [place], [address], 01/09/2023 08:25:37 01/11/20 23 01/10/2023 urina lysis , compl ete bilirubin negati ve Not Available [facility] ([facility]) [address] [place], [address], 01/09/2023 08:25:37 01/11/20 23 01/10/2023 urina lysis , compl ete ketones negati ve Not Available [facility] ([facility]) [address] [place], [address], 01/09/2023 08:25:37 01/11/20 23 01/10/2023 urina lysis , compl ete specific gravity 1.005- 1.025 Not Available [facility] ([facility]) [address] [place], [address], 01/09/2023 08:25:37 01/11/20 23 01/10/2023 urina lysis , compl ete pH 5.0-7. 0 Not Available [facility] ([facility]) [address] [place], [address], 01/09/2023 08:25:37 01/11/20 23 01/10/2023 urina lysis , compl ete nitrate negati ve Not Available [facility] ([facility]) [address] [place], [address], 01/09/2023 08:25:37 01/11/20 23 01/10/2023 urina lysis , compl ete blood negati ve Not Available [facility] ([facility]) [address] [place], [address], 01/09/2023 08:25:37 01/11/20 23 01/10/2023 urina lysis , compl ete leukocytes negati ve Not Available [facility] ([facility]) [address] [place], [address], 01/09/2023 08:25:37 01/11/20 23 01/10/2023 urina lysis , compl ete WBC 0 Not Available [facility] ([facility]) [address] [place], [address], 01/09/2023 08:25:37 01/11/20 23 01/10/2023 urina lysis , compl ete RBC 0 Not Available [facility] ([facility]) [address] [place], [address], 01/09/2023 08:25:37 01/11/20 23 01/10/2023 urina lysis , compl ete epi cells 0 Not Available [facility] ([facility]) [address] [place], [address], 01/09/2023 08:25:37 01/11/20 23 01/10/2023 urina lysis , compl ete bacteria Not Available [facility] ([facility]) [address] [place], [address], 01/09/2023 08:25:37 01/11/20 23 01/10/2023 urina lysis , compl ete other Not Available [facility] ([facility]) [address] [place], [address], 01/09/2023 08:25:37 01/11/20 23 01/10/2023 urina lysis , dipst ick Leukocytes Negati ve Not Available [facility] ([facility]) [address] [place], [address], 01/09/2023 12:42:26 01/11/20 23 01/10/2023 urina lysis , dipst ick Nitrite negati ve Not Available [facility] ([facility]) [address] [place], [address], 01/09/2023 12:42:26 01/11/20 23 01/10/2023 urina lysis , dipst ick Urobilinogen .2 Not Available [facility] ([facility]) [address] [place], [address], 01/09/2023 12:42:26 01/11/20 23 01/10/2023 urina lysis , dipst ick pH 5.5 Not Available [facility] ([facility]) [address] [place], [address], 01/09/2023 12:42:26 01/11/20 23 01/10/2023 urina lysis , dipst ick Blood Negati ve Not Available [facility] ([facility]) [address] [place], [address], 01/09/2023 12:42:26 01/11/20 23 01/10/2023 urina lysis , dipst ick Specific [place] 1.025 Not Available [facility] ( [facility]) [address] [place], [address], 01/09/2023 12:42:26 01/11/20 23 01/10/2023 urina lysis , dipst ick Ketone Negati ve Not Available [facility] ([facility]) [address] [place], [address], 01/09/2023 12:42:26 01/11/20 23 01/10/2023 urina lysis , dipst ick Bilirubin Negati ve Not Available [facility] ([facility]) [address] [place], [address], 01/09/2023 12:42:26 01/11/20 23 01/10/2023 urina lysis , dipst ick Glucose Negati ve Not Available [facility] ([facility]) [address] [place], [address], 01/09/2023 12:42:26 01/11/20 23 01/10/2023 urina lysis , dipst ick Appearance Clear Not Available [facility] ([facility]) [address] [place], [address], 01/09/2023 12:42:26 01/11/20 23 01/10/2023 urina lysis , dipst ick Color Dark Yellow Not Available [facility] ([facility]) [address] [place], [address], 01/09/2023 12:42:26 01/11/20 23 01/10/2023 urina lysis , dipst ick Protein 2000+ Not Available [facility] ([facility]) [address] [place], [address], 01/09/2023 12:42:26 Result Notes None recorded. Problems Name Problem SNOMED Code Status Onset Date Resolution Date Notes Provider Name and Address Organization Details Recorded Time Inflammator y disease of liver 932571925 Active 2021 Hepatitis ; Story: C; Recorded 10:18AM by Erin Zuleta, Office Visit; Promoted; acuity set as *; CAROL FOWLER [facility], L.LMarieCMarie 5 10:35:11 Hypertensiv e disorder 88062349 [facility] 2024 [facility] 5 08:56:32 Osteoarthri tis 626189170 Active 2024 [facility] HURSTH [facility] Carolina[facility] 5 08:56:42 Depressive disorder 60665993 Active 2024 [facility] 5 11:51:54 Macrocytosi s 897222924 Active 2024 [facility] René.CMarie 5 08:57:01 Type 1 diabetes mellitus 33656512 Active 2024 [facility] Trey[facility] 5 11:19:19 Glaucoma 94158992 Active 2024 [facility] 5 11:51:23 Hypercholes terolemia 69420233 Active 2024 [facility] 5 11:51:35 Problem Notes None recorded. Procedures Surgical History Date Name Laterality Status Provider Name and Address Organization Details Recorded Time 2022 Breast augmentation w/implt completed AUBR [facility], CarolinaL.CMarie 3 12:07:09 2021 esophagogastroduodenoscopy completed CAROL RYAN PRINCE FOWLER [facility], [place] 5 10:37:39 2019 mammography completed CAROL FOWLER [facility] [place] 5 08:57:57 2009 colonoscopy completed CAROL FOWLER [facility] L.L.C. 5 10:37:11 2001 transplantation of pancreas completed Tam Olivier MD [address] [place] [address], [address], [facility], L.L.CMarie 5 11:48:58 extraction of cataract completed CAROL FOWLER [facility] [place] 5 08:58:11 transplant of kidney completed CAROL FOWLER [facility], René.CMarie 5 08:58:[address] [facility] [place] 5 08:58:48 Shoulder joint surgery completed CAROL FOWLER [facility], BetzyCMarie 5 08:59:00 Imaging Results None recorded. Procedure Notes None recorded. Medical Equipment None Reported. Allergies Allergen ID Allergen Name Allergen Category Reaction Reaction Severity Criticality Documentation Date Start Date Code Code System Note Provider Name and Address Organization Details Recorded Time 44933 atorvasta tin calcium propylene glycol solvate Not available other Not available Not available 05/06/2023 94177 93 RxNorm React ion: STATI NS _deat hly aller gic_; Comme nt: Recor ded 07/15 10:18 AM by Erin Zuleta Offic e Visit ; Promo maranda; Signi bret ce: *; Reaso n: Drug aller gy; ; Not Available [facility] 3 02:28:10 23035 codeine hydrochlo ride Not available edema Not available Not available 05/06/2023 83555 66 RxNorm React ion: Edema ; Comme nt: Recor ded 07/15 10:18 AM by Erin Zuleta Offic e Visit ; Promo maranda; Signjulia queen ce: *; ; Not Available [facility] 3 02:28:10 62843 Substance with sulfonami de structure and antibacte rial mechanism of action (substanc e) medicatio n Not available Not available Not available 05/06/2023 16851 8003 SNOMED Comme nt: Recor ded 07/15 10:18 AM by Erin Zuleta, Offic e Visit ; Berhane low; Dora queen ce: *; ; Not Available [facility] 3 02:28:10 872 codeine medicatio n rash moderate low 01/09/2023 2670 RxNorm CAROL BRIAN MALCOLM [facility] 3 12:43:50 Medications Name Sig Start Date [...] Available Flonase each nostril BID 01/22 completed 90593; Recorded 02/24/20 9:46AM by Ronaldo Mccarty (Authori zed through Ale Olivier MD), Refill [...] Available Vitamin qd 01/22 completed VO CH/jl; 87217; Recorded 08/17/20 4:59PM by Vicky Ngo LPN [...] Updated DateTime 3 157.48 cm 17.9 kg/m2 06231.0 5 g 98 % 98 % 78 /min 98.6 [degF] 150/80 mm[Hg] CAROL FOWLER [facility], L.L.CMarie 3 12:43:24 Date Recorded Body height Body mass index (BMI) Body weight Body temperature Oxygen saturation Oxygen saturation in Arterial blood by Pulse oximetry Heart rate Systolic And Diastolic Provider Name and Address Organization Details Last Updated DateTime 5 157.48 cm 16.5 kg/m2 20397.3 1 g 98.6 [degF] 99 % 99 % 67 /min 145/78 mm[Hg] CAROL FOWLER [facility], L.L.CMarie 5 11:13:40 Social History Question Answer Notes LastModified by Organizat ion Details LastModified Time Tobacco Smoking Status Former Smoker CAROL FOWLER [facility] L.L.CMarie 01/22/2025 11:21:29 At What Age Did You Start Smoking Tobacco? 18 [email or web address] Information not available 01/09/2023 How Much Tobacco Do You Smoke? 1 PPW Information not available 01/09/2023 Sex: Unknown Functional Status None recorded. Mental Status None recorded. Family History Relationship Description Onset Age of this Age Resolved Age Notes LastModified by Organization Details LastModified Time Father Myocardial infarction 78 [email or web address] Not available 11:20:41 Mother Diabetes mellitus [email or web address] Not available 01/07 11:20:53 Brother Myocardial infarction 36 [email or web address] Not available 11:21:13 Medical History Condition Response [...] purified surface antigen) 0 completed Not Available [facility] 01/22/2025 10:55:14 Influenza, split virus, trivalent, PF 5 completed Not Available [facility] 01/22/2025 10:55:14 Pneumococcal conjugate PCV 13 5 completed Not Available [facility] 01/22/2025 10:55:14 Tdap 6 completed Not Available [facility] 01/22/2025 10:55:14 Influenza, split virus, trivalent, PF 8 completed Not Available [facility] 01/22/2025 10:55:14 Influenza, split virus, quadrivalent, PF 9 completed Not Available [facility] 01/22/2025 10:55:14 Hep B, adult 0 completed [facility] 01/22/2025 10:55:14 Hep A, adult 0 completed [facility] Available [facility] 01/22/2025 10:55:14 COVID-19, mRNA, LNP-S, PF, 100 mcg/0.5mL dose or 50 mcg/0.25mL dose 1 completed [facility] Available [facility] 01/22/2025 10:55:14 Influenza, split virus, quadrivalent, PF 1 completed [facility] Available [facility] 01/22/2025 10:55:14 COVID-19, mRNA, LNP-S, PF, 100 mcg/0.5mL dose or 50 mcg/0.25mL dose 1 completed Not Available [facility] 01/22/2025 10:55:14 COVID-19, mRNA, LNP-S, PF, 100 mcg/0.5mL dose or 50 mcg/0.25mL dose 2 completed Not Available [facility] 01/22/2025 10:55:14 Influenza, split virus, trivalent, preservative 4 completed Not Available [facility] 05/06/2023 02:27:37 Influenza, split virus, trivalent, preservative 7 completed Not Available [facility] 05/06/2023 02:27:37 Past Encounters Encounter ID Performer Location Encounter Start Date Encounter Closed Date Diagnosis/Indication Diagnosis SNOMED-CT Code Diagnosis ICD10 Code Diagnosis IMO Codes Diagnosis Note [id number] Ale Olivier MD [facility] ([facility]) [address] [place] [phone] 01/09/2023 12:36:10 01/09/2023 14:30:26 Dysuria 71078456 R30.0 pt left a u/a at the hospital this morning, we will have her do u/a here. [id number] Ale Olivier MD [facility] ([facility]) [address] [place] [phone] 01/22/2025 10:54:45 02/06/2025 06:13:31 Tobacco user 024390922 Z72.0 Screening colonoscopy 44 1399089 Z12.11 Declined, 01/22/25 Screening mammography 24 180253 Z12.31 Declined 01/22/25 Labile ess ential hypertension 574883679 I10 Viral hepatitis C 115990 07 B19.20 History of renal transplant 462488407 Z94.0 08165516 Health Concerns Section Related Observation LastModified by Organization Detai ls LastModified Time None Recorded Concern Status LastModified by Organization Details LastModified Time None Recorded Advance Directives Directive None Recorded Payers Insurance Date Sequence Insurance Name Policy Number Policy Pereira Covered Member ID Pereira Member ID Guarantor Name 06/03/2025 [place] A - [facility] (MEDICARE) Yu Nunez [id number] Yu Nunez 06/03/2025 [place] [facility] (INSTITUTIONA L) Yu Nunez [id number] Yu Nunez 06/03/2025 2 [facility] (MEDICARE REPLACEMENT/A DVANTAGE - HMO) Yu Nunez [id number] Yu Nunez 01/22/2025 1 [place] Yu Nunez [id number] Yu Nunez 06/03/2025 1 [place] Yu Nunez [id number] Yu Nunez Notes Date Note Type Note [...] for appt, no fever/chills, Ale Olivier MD [address] [place] [address], [phone], [facility], L.LMarieC. 01/09/2023 13:06:19 01/23/20 25 text/htm l [...] of BP at home - they been hnnc798/103, 194/90. I already took my BP meds [...] at the hospital.... Ale Olivier MD [address] [place], [address], [facility] 02/05/2025 16:00:26 OBGyn Episode No OBEpisode recorded.
--- NOTE | 2025-07-10 14:19 | W.ED.WEAKNES ---
HPI - Weakness General: Chief complaint: Weakness Stated complaint: general weakness - left hip pain Time Seen by Provider: 07/10/25 13:58 History of Present Illness: 64-year-old female presents emergency room with generalized weakness left hip pain. She fell and hit her face has significant mount of swelling and bruising vertically on the right side of the face she was not seen after this happened. She has a history of end-stage renal disease she did receive her regular round of dialysis yesterday. She states she hurts all over nothing specific. Denies chest or abdominal pain. Associated symptoms: Denies chest pain, chills, dysuria or fever(s) Related Data Home Medications ?Medication ?Instructions ?Recorded ?Confirmed ascorbic acid (vitamin C) 500 mg 500 mg PO BID@0700,1730 09/13/20 07/10/25 tablet (Vitamin C) aspirin 81 mg chewable tablet 81 mg PO DAILY@2100 09/13/20 07/10/25 loperamide 2 mg capsule 2 mg PO TID PRN Diarrhea 09/13/20 07/09/25 magnesium oxide 400 mg (241.3 mg 400 mg PO DAILY 09/13/20 07/09/25 magnesium) tablet vitamin E acetate 134 mg (200 400 unit PO DAILY@0700 09/13/20 07/09/25 unit) capsule cholecalciferol (vitamin D3) 25 25 mcg PO DAILY 05/28/25 07/10/25 mcg (1,000 unit) capsule (Vitamin D3) mycophenolate sodium 180 mg 180 mg PO QID 05/28/25 07/09/25 tablet,delayed release vitamins with calcium 27 tab PO DAILY 05/28/25 07/09/25 no.72-iron 27 mg-folic acid 1 mg tablet ( Vitamins Plus Low Iron) tacrolimus 0.5 mg capsule, See Rx Instructions .Route .COMPLEX 05/28/25 07/09/25 immediate-release bumetanide 0.5 mg tablet See Rx Instructions .Route .COMPLEX 07/09/25 07/10/25 carvedilol 25 mg tablet 25 mg PO DAILY 07/09/25 07/10/25 clonidine 0.2 mg/24 hr weekly 1 patch topical Q7D 07/09/25 07/10/25 transdermal patch fluticasone propionate 50 1 spray intranasal BID 07/09/25 07/09/25 mcg/actuation nasal spray,suspension losartan 50 mg tablet 50 mg PO DAILY 07/09/25 07/09/25 Previous Rx's ?Medication ?Instructions ?Recorded clonidine HCl 0.1 mg tablet 0.1 mg PO TID #90 tabs 06/02/25 docusate sodium 100 mg capsule 100 mg PO BID #60 caps 06/02/25 hydralazine 100 mg tablet 100 mg PO TID #90 tabs 06/02/25 prednisone 5 mg tablet 5 mg PO DAILY #30 tabs 06/02/25 hydrocodone 5 mg-acetaminophen 325 1 tab PO Q6H PRN pain #14 tabs 07/09/25 mg tablet Allergies Allergy/AdvReac Type Severity Reaction Status Date / Time cranberry Allergy Severe ALGY-Swell Verified 05/30/25 08:10 Lip/Tongue/Throat codeine Allergy ADR-Halluci Verified 04/15/25 14:55 nating isosorbide Allergy ALGY-Hives Verified 06/18/25 14:37 nifedipine Allergy ALGY-Swell Verified 05/29/25 20:23 Lip/Tongue/Throat povidone-iodine (From Allergy ADR-Itching Verified 04/15/25 14:55 Betadine) simvastatin Allergy Unknown Verified 05/28/25 15:55 trazodone Allergy ADR-Vomitin Verified 04/15/25 14:55 g Review of Systems Const: Denies: fever(s) or chills Card: Denies: chest pain Resp: Denies: dyspnea GI: Denies: abdominal pain : Denies: dysuria, urinary frequency or urinary urgency Musc: Reports: back pain, extremity pain and joint pain; Denies: neck pain Skin/Breast: Denies: rash PFSH ED PFSH: Medical History Immunosuppressed status Moderate aortic valve stenosis Hepatitis C Post hysterectomy menopause Surgical History Transplant Arteriovenous fistula removed Renal transplant recipient Social History Smoking and tobacco/nicotine status: current every day tobacco/nicotine user Alcohol intake: never Substance/Drug Use: never Physical Exam Const: COMMON NORMALS: no acute distress GENERAL APPEARANCE: cooperative and comfortable ORIENTATION/CONSCIOUSNESS: Yes awake HENMT: COMMON NORMALS: normocephalic, atraumatic and hearing grossly normal bilaterally HEAD & SCALP: normocephalic and atraumatic Resp: COMMON NORMALS: normal respiratory effort, No retractions, No use of accessory muscles and clear to auscultation bilaterally AUSCULTATION: clear to auscultation bilaterally Cardio: COMMON NORMALS: regular rate, regular rhythm and No murmurs present (Cardio) RATE: regular rate RHYTHM: regular rhythm GI: COMMON NORMALS: Soft to palpation and No hepatosplenomegaly present AUSCULTATION: Yes normoactive bowel sounds PALPATION: Yes Soft to palpation, No Tenderness to palpation present (GI), No Guarding due to palpation present (GI) and Yes No hepatosplenomegaly present Extremity: COMMON NORMALS: normal to inspection, capillary refill normal, no clubbing, cyanosis or edema, no calf tenderness and no pedal edema Skin: COMMON NORMALS: no rashes or lesions noted GENERAL SKIN EXAM: no rashes or lesions noted Course Vital Signs: Vital signs: Vital Signs Temperature 99.2 F 07/10/25 14:01 Pulse Rate 81 07/10/25 16:31 Respiratory Rate 10 L 07/10/25 16:31 Blood Pressure 161/82 07/10/25 16:31 Pulse Oximetry 95 07/10/25 16:31 Oxygen Delivery Me thod Room Air 07/10/25 14:01 MDM - Weakness Medical Decision Making Patient had fallen yesterday repeat imaging does not show any significant change she did complain of wrist pain x-ray of her wrist shows distal radius fracture she had put a splint on at home will apply a sugar-tong splint here discussed with hospitalist she will need to be referred to radiology for follow-up as an outpatient. Patient being admitted for accelerated hypertension was started on nicardipine she lists an allergy to nifedipine but she has been admitted previously about 5 or 6 weeks ago and tolerated the nicardipine well. She has significant fluid overload at this time and will likely need early dialysis. Her hemoglobin yesterday was 9 7 that looks to be as if it was concentrated. It typically she is more around 8 or a little bit last she is back down to 7.8 today she has not had any overt losses. We did do a CT to ensure there is no occult losses she is not reporting any hematochezia or melena. Did have a few white blood cells per high-power field in the urine however she has no leukocyte esterase or nitrates. Reviewed with the hospitalist. Medical Records I reviewed the patient's medical records. Lab Data I reviewed the patient's lab results. 07/10/25 15:20 07/10/25 14:20 Radiology Impressions Hip/Pelvis X-Ray 07/10/25 14:02 IMPRESSION: Mild osteoarthritis with no acute abnormality. Cervical Spine CT 07/10/25 14:25 IMPRESSION: The examination is unchanged compared to the study of the previous day. No acute abnormality is identified. Face CT 07/10/25 14:25 IMPRESSION: Acute fracture of the anterior and posterior wall of right maxillary sinus. Acute fracture of the floor of right orbit. ADDENDUM: 07/10/25 [id number] THIS REPORT CONTAINS FINDINGS THAT MAY BE CRITICAL TO PATIENT CARE. AARON Mosqueda has the report and has no more questions at 4:02 PM CDT on 07/10/2025. The findings were acknowledged and understood. Head CT 07/10/25 14:25 IMPRESSION: Stable right facial bone fractures. Stable intracranial contents with no acute abnormality. Wrist X-Ray 07/10/25 16:12 IMPRESSION: Acute fracture of the distal radial metaphyses with the fracture line extending into the distal radial diaphysis. Dorsal angulation of the distal fracture fragment. Laboratory Results WBC 8.78 10^3/uL (3.29-11.43) 07/10/25 15:20 Corrected WBC Cancelled 07/10/25 14:20 RBC 2.36 10^6/uL (3.85-5.65) L 07/10/25 15:20 Hgb 7.80 g/dL (11.27-16.99) L 07/10/25 15:20 Hct 24.5 % (36-47) L 07/10/25 15:20 MCV 103.8 fl (85-98) H 07/10/25 15:20 MCH 33.1 pg (27-33) H 07/10/25 15:20 MCHC 31.8 g/dL (30-55) 07/10/25 15:20 RDW 17.5 % (12.1-15.1) H 07/10/25 15:20 Plt Count 215 10^3/cmm (157-399) 07/10/25 15:20 MPV 10.6 fL (7.4-10.4) H 07/10/25 15:20 Gran % Cancelled 07/10/25 14:20 Neut % (Auto) 78.8 % 07/10/25 15:20 Lymph % (Auto) 6.8 % 07/10/25 15:20 [place] % (Auto) 11.8 % 07/10/25 15:20 Eos % (Auto) 1.6 % 07/10/25 15:20 Baso % (Auto) 0.5 % 07/10/25 15:20 Neut # (Auto) 6.92 10^3/uL (1.8-7.7) 07/10/25 15:20 Lymph # (Auto) 0.6 10^3/uL (0.8-4.8) L 07/10/25 15:20 [place] # (Auto) 1.0 10^3/uL (0.2-0.9) H 07/10/25 15:20 Eos # (Auto) 0.1 10^3/uL (0.0-0.8) 07/10/25 15:20 Baso # (Auto) 0.0 10^3/uL (0.0-0.1) 07/10/25 15:20 Absolute Gran (auto) Cancelled 07/10/25 14:20 Nucleated RBC % (auto) 0 % 07/10/25 15:20 Nucleated RBCs # 0.0 /100WBC 07/10/25 15:20 Sodium 136 mmol/L (136-145) 07/10/25 14:20 Potassium 4.8 mmol/L (3.5-5.1) 07/10/25 14:20 Chloride 100 mmol/L (98-107) 07/10/25 14:20 Carbon Dioxide 25 mmol/L (22-29) 07/10/25 14:20 Anion Gap 15.8 (5-19) 07/10/25 14:20 BUN 30 mg/dL (8-23) H 07/10/25 14:20 Creatinine 3.0 mg/dL (0.5-0.9) H 07/10/25 14:20 GFR Calculation 15.8 mL/min (90-130) L 07/10/25 14:20 Glucose 109 mg/dL (65-115) 07/10/25 14:20 Calculated Osmolality 289 mOsm/kg (285-295) 07/10/25 14:20 Calcium 8.3 mg/dL (8.5-10.5) L 07/10/25 14:20 Total Bilirubin 0.2 mg/dL (0.15-1.2) 07/10/25 14:20 AST 23 U/L (0-32) 07/10/25 14:20 ALT 22 U/L (0-33) 07/10/25 14:20 Alkaline Phosphatase 66 U/L (35-105) 07/10/25 14:20 Total Protein 5.3 g/dL (6.6-8.7) L 07/10/25 14:20 Albumin 3.2 g/dL (3.5-5.2) L 07/10/25 14:20 Globulin 2.1 g/dL (1.3-4.6) 07/10/25 14:20 Urine Color Yellow (Yellow) 07/10/25 14:40 Urine Appearance Clear (CLEAR) 07/10/25 14:40 Urine pH 8.5 (5-7) A 07/10/25 14:40 Ur Specific [place] 1.016 (1.005-1.030) 07/10/25 14:40 Urine Protein 3+ (Negative) A 07/10/25 14:40 Urine Glucose (UA) Trace (Normal) H 07/10/25 14:40 Urine Ketones Negative (Negative) 07/10/25 14:40 Urine Blood Negative (Negative) 07/10/25 14:40 Urine Nitrate Negative (Negative) 07/10/25 14:40 Urine Bilirubin Negative (Negative) 07/10/25 14:40 Urine Urobilinogen 0.2 mg/dL (Negative) 07/10/25 14:40 Ur Leukocyte Esterase Negative (Negative) 07/10/25 14:40 Urine RBC 0-2 /hpf (0-2) 07/10/25 14:40 Urine WBC 6-10 /hpf (0-5) 07/10/25 14:40 Ur Squamous Epith Cells 0-4 /hpf (0-5) H 07/10/25 14:40 Amorphous Sediment Not Reportable 07/10/25 14:40 Urine Bacteria Trace /hpf (NONE) 07/10/25 14:40 All radiology interpretation(s) finalized by discharge Discharge Plan Discharge Patient Disposition: Admitted As Inpatient Admit Provider: Jordyn Sosa Clinical Impression: Facial fracture, Accelerated hypertension, ESRD (end stage renal disease), Kidney transplant failure, Distal radius fracture, left Condition: Stable Coding Level of Care Code ED [employer] for Tanya Neil
--- NOTE | 2025-07-10 14:25 | CT_ITS ---
WS: [email or web address] CT head wo con* [id number] REASON FOR EXAM: Trauma IV CONTRAST ADMINISTERED: None. TECHNIQUE: Multiple axial images without intravenous contrast enhancement. Coronal and sagittal reconstructions. COMPARISON EXAMINATION: CT head, cervical spine, and facial bones 07/09/2025. TOTAL EXAM DLP: 1804.[address] scans at [facility] use at least one of these dose optimization techniques: automated exposure control; mA and/or kV adjustment per patient size (includes targeted exams where dose is matched to clinical indication); or iterative reconstruction. FINDINGS: The current examination is unchanged compared to the previous day. Right facial bone fractures including base of the zygomatic arch, lateral orbital, inferior orbital wall, and medial and lateral potts of the maxillary sinus. The base of the skull and the bony calvarium are intact. There is no midline shift or other significant mass effect. No findings of subdural, subarachnoid, or brain parenchymal hemorrhage. No other focal brain parenchymal abnormality. Mild global atrophy. Periventricular chronic ischemic demyelination. CT/CT head wo con* [id number] IMPRESSION: Stable right facial bone fractures. Stable intracranial contents with no acute abnormality.
--- NOTE | 2025-07-10 14:25 | CT_ITS ---
WS: [email or web address] CT cervical spin wo con* [id number] REASON FOR EXAM: Trauma IV CONTRAST ADMINISTERED: None TECHNIQUE: Multiple axial images without intravenous contrast enhancement. Coronal and sagittal reconstructions. COMPARISON EXAMINATION: CT scan of the cervical spine 07/09/2025. TOTAL EXAM DLP: 1804.[address] scans at [facility] use at least one of these dose optimization techniques: automated exposure control; mA and/or kV adjustment per patient size (includes targeted exams where dose is matched to clinical indication); or iterative reconstruction. FINDINGS: Examination is unchanged compared to the previous day's study. Odontoid and vertebral bodies are intact without fracture. Degenerative spondylosis C4-C5 with minimal anterior subluxation of C5 in relationship to C4. No facet fracture. Facet joints are in normal alignment. CT/CT cervical spin wo con* [id number] IMPRESSION: The examination is unchanged compared to the study of the previous day. No acut e abnormality is identified.
--- NOTE | 2025-07-10 14:25 | CTR_ITS ---
PROCEDURE INFORMATION: Exam: CT Maxillofacial Without Contrast Exam date and time: 07/10/2025 2:56 PM Age: 64 years old Clinical indication: Injury or trauma; Blunt trauma (contusions or hematomas); PT presents with weakness an injuries after fall. Patient is complaining of left hip pain. Patient fell on Monday night and did not get checked out. Patient has large hematoma and old bruising to left side of face and eye. Patient states she is on blood thinners and dialysis patient. extensive swelling RT orbital region with redness surrounding. HX of breast and uterine cancer TECHNIQUE: Imaging protocol: Computed tomography of the face without contrast. Radiation optimization: All CT scans at this facility use at least one of these dose optimization techniques: automated exposure control; mA and/or kV adjustment per patient size (includes targeted exams where dose is matched to clinical indication); or iterative reconstruction. COMPARISON: CT facial bones wo con* [id number] 07/09/2025 7:06 AM RADIATION DOSE METRICS: Total DLP (mGy-cm): 136.9 FINDINGS: Paranasal sinuses: Acute fracture of the anterior and posterior wall of right maxillary sinus. Orbital cavities: Acute fracture of the floor of right orbit. Mastoid air cells: Effusion in the right mastoid air cells. Bones: No acute fracture. Soft tissues: Unremarkable. CT/CT facial bones wo con* [id number] IMPRESSION: Acute fracture of the anterior and posterior wall of right maxillary sinus. Acute fracture of the floor of right orbit.
[2025-07-10 14:40] LABS: Alanine Aminotransferase 22 U/L (0-33); Albumin Level 3.2 g/dL (3.5-5.2); Alkaline Phosphatase 66 U/L (35-105); Anion Gap 15.8 (5-19); Aspartate Amino Transferase 23 U/L (0-32); Blood Urea Nitrogen 30 mg/dL (8-23); Calcium 8.3 mg/dL (8.5-10.5); Carbon Dioxide 25 mmol/L (22-29); Chloride 100 mmol/L (98-107); Creatinine Clr Calc Pharmacy 15.4858; Globulin 2.1 g/dL (1.3-4.6); Glucose 109 mg/dL (65-115); Osmolality Calculated 289 mOsm/kg (285-295); Potassium 4.8 mmol/L (3.5-5.1); Sodium 136 mmol/L (136-145); Total Protein 5.3 g/dL (6.6-8.7)
[2025-07-10 14:51] LABS: Glucose Urine UA Trace (Normal); Nitrate Urine Negative (Negative); Specific Gravity, Urine 1.016 (1.005-1.030)
[2025-07-10 14:59] LABS: Add Urine Microscopic? YES; UA Manual Slide Review YES
[2025-07-10 15:44] LABS: Hematocrit 24.5 % (36-47); Hemoglobin 7.80 g/dL (11.27-16.99); Mean Corpuscular HGB Conc 31.8 g/dL (30-55); Mean Corpuscular Hemoglobin 33.1 pg (27-33); Mean Corpuscular Volume 103.8 fl (85-98); Nucleated Red Blood Cells % 0 %; Platelet Count 215 10^3/cmm (157-399); Red Blood Count 2.36 10^6/uL (3.85-5.65); White Blood Count 8.78 10^3/uL (3.29-11.43)
[2025-07-10] MEDS: hyDRALAzine 20 mg/mL INJ 1 mL IVP (15:47)
[2025-07-10] MEDS: labetalol 5 mg/mL SDV 20mL 10 MG IVP (15:48)
--- NOTE | 2025-07-10 16:12 | XRR_ITS ---
PROCEDURE INFORMATION: Exam: XR Left Wrist Exam date and time: 07/10/2025 4:30 PM Age: 64 years old Clinical indication: Pain; Wrist; Left; Additional info: Wrist pain TECHNIQUE: Imaging protocol: Radiologic exam of the left wrist. Views: 3 or more views. COMPARISON: No relevant prior studies available. FINDINGS: Bones/joints: Acute fracture of the distal radial metaphyses with the fracture line extending into the distal radial diaphysis. Dorsal angulation of the distal fracture fragment. Diffuse demineralization of the bones. Soft tissues: Normal. Vasculature: Vascular calcifications. XR/XR wrist LT min 3V* [id number] IMPRESSION: Acute fracture of the distal radial metaphyses with the fracture line extending into the distal radial diaphysis. Dorsal angulation of the distal fracture fragment.
--- NOTE | 2025-07-10 16:13 | CTR_ITS ---
PROCEDURE INFORMATION: Exam: CT Abdomen And Pelvis With Contrast Exam date and time: 07/10/2025 4:42 PM Age: 64 years old Clinical indication: Abdominal pain; Prior surgery; Surgery date: 6+ months; Surgery type: Kidney/spleen transplant, hyst, dialysis catheter; Presents with weakness an injuries after fall. ; Additional info: Abd pain TECHNIQUE: Imaging protocol: Computed tomography of the abdomen and pelvis with contrast. Radiation optimization: All CT scans at this facility use at least one of these dose optimization techniques: automated exposure control; mA and/or kV adjustment per patient size (includes targeted exams where dose is matched to clinical indication); or iterative reconstruction. Contrast material: [id number]; Contrast volume: 80 ml; Contrast route: INTRAVENOUS (IV); COMPARISON: MR MRCP [id number] 05/29/2025 10:28 AM RADIATION DOSE METRICS: Total DLP (mGy-cm): 38445 FINDINGS: Lungs: Atelectasis in the lung bases, left greater than right. Pleural spaces: Moderate left and small right pleural effusions. Coronary arteries: Coronary artery calcifications. Liver: Normal. No mass. Gallbladder and biliary ducts: Fluid distended gallbladder with multiple small calcified stones measuring up to 7 mm. Mild wall enhancement with no thickening. Trace pericholecystic fluid. The bile ducts are normal. Pancreas: Normal. No ductal dilation. Spleen: Normal. No splenomegaly. Adrenal glands: Normal. No mass. Kidneys and ureters: Severely atrophic bilateral kidneys. No hydronephrosis. Transplanted kidney in the left pelvis with mild hydronephrosis and no visible calculus. Small cortical lesion in the transplant kidney is too small to characterize and is most likely a cyst. No follow-up imaging is recommended. Stomach and bowel: Diverticulosis of the distal colon. No diverticulitis. The stomach and small bowel are unremarkable. No wall thickening or obstruction. Appendix: The appendix is visualized and is normal. Intraperitoneal space: Trace pelvic ascites. No pneumoperitoneum. Vasculature: Dense arterial calcifications. No aortic aneurysm. 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 Lymph nodes: Unremarkable. No enlarged lymph nodes. Urinary bladder: Unremarkable as visualized. Reproductive: Hysterectomy. Small retained ovaries. Bones/joints: Mildly displaced fracture in the lateral left sacral ala. Mildly displaced fracture in the superomedial left iliac bone. Mildly displaced fracture in the anterior wall of the left acetabulum. Degenerative changes in the spine. Mild central depression of the superior L3 endplate. Soft tissues: Diffuse body wall edema. Sutures in the anterior low pelvis. CT/CT abdomen pelvis w con* [id number] IMPRESSION: 1. Mildly displaced fractures in the lateral left sacral ala, superomedial left iliac bone, and anterior wall of the left acetabulum. 2. Cholelithiasis with mild wall enhancement and trace pericholecystic fluid. Cholecystitis can not be entirely excluded. 3. Findings of volume overload with pleural effusions, trace ascites, and body wall edema. 4. Severely atrophic [place] kidneys with a left pelvic renal transplant. Mild hydronephrosis in the transplant kidney without visible calculus. COMMENTS: Consistent with the [place] [employer]'s Incidental Findings Committee white paper (J Am Axel Radiol 2018): Any incidental renal lesion less than 1 cm or classified as too small to characterize, or any incidental cystic renal lesion characterized as simple-appearing, is likely benign. No follow-up imaging is recommended for these lesions per consensus recommendations based on imaging criteria.
[2025-07-10] MEDS: nicardipine 20 MG/200 ML PREMIX 50 MG IV (16:24)
[2025-07-10] MEDS: iohexol 350 mg/mL 500 mL Btl (per mL) IV (16:48)
--- NOTE | 2025-07-10 16:49 | PM.HP ---
Providers/Chief Complaint Admitting Physician: Jordyn Sosa MD Primary Care Provider: Ale Olivier MD Chief Complaint: general weakness - left hip pain History of Present Illness Yu Nunez is a 64 year old female who looks much older than the stated age, presented to the emergency room confused today with hypertensive urgency blood pressure was 240/110. Patient is well-known to the emergency room department and will come in confused with very high blood pressure. Patient was in the ED for a very recent fall yesterday with remarkable right facial bone fracture and was set up to go follow-up with ENT by the emergency room department. There were no brain bleed no other issues or trauma to the brain Patient had a have a dose of hemodialysis yesterday at her dialysis. Dialysis days are Fridays. Patient only to return today confused. Antihypertensive medication has been given blood pressure had not gone anywhere below 200. At this time emergency room department initiating Cardene drip for ICU admission. Patient baseline hemoglobin had always been between 7 and 7.8. Yesterday it was noted to be 9.7 post hemodialysis and today 7.8. A scan of the abdomen and pelvis had been done at this time by the emergency room department to make sure that the patient had not lost 2 units of blood somewhere in the retroperitoneal area. Patient did have a left wrist fracture this had been splinted patient is to follow-up with outpatient orthopedics. Review of Systems Narrative: System review upon 10 organ review we are entirely unremarkable except for musculoskeletal patient does have facial fracture yesterday status post a fall otherwise system review were unremarkable except for vascular issues with high blood pressure Medications/Allergies Home Medications ?Medication ?Instructions ?Recorded ?Confirmed ?Last Taken ?Type ascorbic acid (vitamin C) 500 mg 500 mg PO BID@0700,1730 09/13/20 07/10/25 07/10/25 07:00 History tablet (Vitamin C) aspirin 81 mg chewable tablet 81 mg PO DAILY@2100 09/13/20 07/10/25 07/10/25 07:00 History loperamide 2 mg capsule 2 mg PO TID PRN Diarrhea 09/13/20 07/09/25 Unknown History magnesium oxide 400 mg (241.3 mg 400 mg PO DAILY 09/13/20 07/09/25 06/17/25 History magnesium) tablet vitamin E acetate 134 mg (200 400 unit PO DAILY@0700 09/13/20 07/09/25 06/18/25 History unit) capsule cholecalciferol (vitamin D3) 25 25 mcg PO DAILY 05/28/25 07/10/25 07/10/25 History mcg (1,000 unit) capsule (Vitamin D3) mycophenolate sodium 180 mg 180 mg PO QID 05/28/25 07/09/25 06/18/25 History tablet,delayed release vitamins with calcium 27 tab PO DAILY 05/28/25 07/09/25 06/18/25 History no.72-iron 27 mg-folic acid 1 mg tablet ( Vitamins Plus Low Iron) tacrolimus 0.5 mg capsule, See Rx Instructions .Route .COMPLEX 05/28/25 07/09/25 06/18/25 History immediate-release clonidine HCl 0.1 mg tablet 0.1 mg PO TID #90 tabs 06/02/25 07/09/25 06/18/25 Rx docusate sodium 100 mg capsule 100 mg PO BID #60 caps 06/02/25 07/09/25 06/18/25 Rx hydralazine 100 mg tablet 100 mg PO TID #90 tabs 06/02/25 07/09/25 06/18/25 Rx prednisone 5 mg tablet 5 mg PO DAILY #30 tabs 06/02/25 07/09/25 06/18/25 Rx bumetanide 0.5 mg tablet See Rx Instructions .Route .COMPLEX 07/09/25 07/10/25 Unknown History carvedilol 25 mg tablet 25 mg PO DAILY 07/09/25 07/10/25 07/10/25 History clonidine 0.2 mg/24 hr weekly 1 patch topical Q7D 07/09/25 07/10/25 Unknown History transdermal patch fluticasone propionate 50 1 spray intranasal BID 07/09/25 07/09/25 Unknown History mcg/actuation nasal spray,suspension hydrocodone 5 mg-acetaminophen 325 1 tab PO Q6H PRN pain #14 tabs 07/09/25 Unknown Rx mg tablet losartan 50 mg tablet 50 mg PO DAILY 07/09/25 07/09/25 Unknown History Allergies Allergy/AdvReac Type Severity Reaction Status Date / Time cranberry Allergy Severe ALGY-Swell Verified 05/30/25 08:10 Lip/Tongue/Throat codeine Allergy ADR-Halluci Verified 04/15/25 14:55 nating isosorbide Allergy ALGY-Hives Verified 06/18/25 14:37 nifedipine Allergy ALGY-Swell Verified 05/29/25 20:23 Lip/Tongue/Throat povidone-iodine (From Allergy ADR-Itching Verified 04/15/25 14:55 Betadine) simvastatin Allergy Unknown Verified 05/28/25 15:55 trazodone Allergy ADR-Vomitin Verified 04/15/25 14:55 g PFSH Acute PFSH: Medical History Immunosuppressed status Moderate aortic valve stenosis Hepatitis C Post hysterectomy menopause Surgical History Transplant Arteriovenous fistula removed Renal transplant recipient Social History Smoking and tobacco/nicotine status: current every day tobacco/nicotine user Alcohol intake: never Substance/Drug Use: never Vitals/I&O/Wt Last Vital Signs Temp 99.2 F 07/10/25 14:01 Pulse 81 07/10/25 16:31 Resp 10 L 07/10/25 16:31 BP 161/82 07/10/25 16:31 Pulse Ox 95 07/10/25 16:31 O2 Del Method Room Air 07/10/25 14:01 07/10/25 07/10/25 07/10/25 06:59 14:59 22:59 Intake Total 6.667 / 6.667 Balance 6.667 / 6.667 Weight last 48 hrs Weight 52.617 kg Physical Exam Narrative: Currently patient is lying in bed with facial swelling from recent fall with facial bone fracture with no close head injury HEENT normocephalic atraumatic neck neck is supple cardiovascular heart rate is regular lungs are pretty much clear abdomen soft nontender nondistended unremarkable extremities are intact no edema has good pulses neurology has no focality lab studies lab studies reviewed and noted. Data 07/10/25 15:20 07/10/25 14:20 A&P Assessment and plan 1. Distal radius fracture, left: 2. Facial fracture: 3. Fall: 4. Accelerated hypertension: 5. ESRD (end stage renal disease): 6. Hypertensive urgency: 7. Hypertensive encephalopathy: 8. Anemia: Plan: #1 Hypertensive urgency with encephalopathy - Patient is with hypertensive urgency today with yet another encephalopathy associated - This is not new for the patient patient usually gets confused when the blood pressure gets high the attending physician tells me in the ED - Initial presenting blood pressure was 240/110 and patient was confused - Patient received labetalol 10 mg IV and then another hydralazine 20 mg IV systolic blood pressure had not gone below 200 - Cardene was initiated for ICU admission and care - Upon my evaluating the patient patient was beginning to be coherent and doing okay pretty much alert awake oriented x 3 systolic blood pressure was 200/100 at the time post ED care under Dr. Cui #2 Facial bone fracture yesterday status post mechanical fall - Patient already was seen in the ED yesterday and had been referred to ENT outpatient - Patient need to follow-up with ENT after this hospitalization #3 Left wrist pain - X-ray obtained and was significant for left wrist fracture - Site splinted - Patient to follow-up with orthopedics outpatient - Continue pain management #4 End-stage renal disease requiring chronic hemodialysis patient fell awaited kidney transplant - Nephrology had been consulted for chronic hemodialysis - Patient had a partial hemodialysis yesterday for 1 reason at the other not a full course - Nephrology had been called through telemetry nephrology with no callback - I am placing order under Dr. Murillo who might not be 1 on-call at this time we are still waiting for telemetry nephrology to return call #5 GI and DVT prophylaxis in place PDMP PDMP Reviewed: Last Reviewed 07/10/25 17:04 by Jordyn Sosa MD Attestations Medical Necessity Statement*: Patient presents with hypertensive encephalopathy and hypertensive urgency requiring inpatient care in ICU with Cardene drip. Patient needs at least 2 midnights to optimize care with evaluation Coding Level of Care Code 42741 Diagnoses Distal radius fracture, left S52.502A Facial fracture S02.92XA Fall W19.XXXA Accelerated hypertension I10 ESRD (end stage renal disease) N18.6 Hypertensive urgency I16.0 Hypertensive encephalopathy I67.4 Anemia D64.9 Time Spent (min) 60
--- NOTE | 2025-07-10 16:56 | XRR_ITS ---
PROCEDURE INFORMATION: Exam: XR Chest Exam date and time: 07/10/2025 5:29 PM Age: 64 years old Clinical indication: Cough and dyspnea; Additional info: Dyspnea/cough TECHNIQUE: Imaging protocol: Radiologic exam of the chest. Views: 1 view. COMPARISON: CR XR chest 1V portable [id number] 07/09/2025 7:01 AM FINDINGS: Tubes, catheters and devices: Tunneled right IJ dialysis catheter with tips in the distal SVC. Lungs: Linear atelectasis in the right lung base. Dense atelectasis in the left lung base. Mild interstitial opacities in both lungs. Pleural spaces: Small to moderate left pleural effusion. No pneumothorax. Heart/Mediastinum: Mild cardiomegaly. Cardiomegaly. Bones/joints: Unremarkable. XR/XR chest 1V portable [id number] IMPRESSION: 1. Cardiomegaly with mild pulmonary edema. 2. Small to moderate left pleural effusion.
--- NOTE | 2025-07-10 18:29 | PC.NURSE ---
attempted report to ICU 10, unable to take report at this time, request after shift change
[2025-07-10] MEDS: morphine 4 mg/mL SDV 1 mL IVP (20:47)
--- NOTE | 2025-07-10 20:48 | PM.CONSULT ---
Providers/Reason For Consult Consulting Physician/Specialty*: [facility]/Nehrology Reason for Consult*: ESRD Attending Physician: Jordyn Sosa MD Primary Care Provider: Ale Olivier MD History of Present Illness History of Present Illness Yu Nunez is a 64 year old female Patient is a 64-year-old female with past medical history of pancreatic and kidney transplant about 23 years ago, hypertension , failed renal transplant now on dialysis per Monday schedule, patient underwent dialysis yesterday at her dialysis center but she was not a full treatment. Presented to the emergency department due to left hip pain and generalized weakness but noted to have high blood pressures of 240/110 in the emergency department. Labs reviewed. Currently on Cardene drip. Review of Systems Narrative: negative Medications/Allergies Home Medications ?Medication ?Instructions ?Recorded ?Confirmed ?Last Taken ?Type ascorbic acid (vitamin C) 500 mg 500 mg PO BID@0700,1730 09/13/20 07/10/25 07/10/25 07:00 History tablet (Vitamin C) aspirin 81 mg chewable tablet 81 mg PO DAILY@2100 09/13/20 07/10/25 07/10/25 07:00 History loperamide 2 mg capsule 2 mg PO TID PRN Diarrhea 09/13/20 07/10/25 Unknown History magnesium oxide 400 mg (241.3 mg 400 mg PO DAILY 09/13/20 07/10/25 07/09/25 20:00 History magnesium) tablet vitamin E acetate 134 mg (200 400 unit PO DAILY@0700 09/13/20 07/10/25 07/10/25 07:00 History unit) capsule cholecalciferol (vitamin D3) 25 25 mcg PO DAILY 05/28/25 07/10/25 07/10/25 History mcg (1,000 unit) capsule (Vitamin D3) mycophenolate sodium 180 mg 180 mg PO QID 05/28/25 07/10/25 07/10/25 08:00 History tablet,delayed release vitamins with calcium 27 tab PO DAILY 05/28/25 07/10/25 07/10/25 09:00 History no.72-iron 27 mg-folic acid 1 mg tablet ( Vitamins Plus Low Iron) tacrolimus 0.5 mg capsule, See Rx Instructions .Route .COMPLEX 05/28/25 07/10/25 07/10/25 08:30 History immediate-release clonidine HCl 0.1 mg tablet 0.1 mg PO TID #90 tabs 06/02/25 07/10/25 07/10/25 08:30 Rx docusate sodium 100 mg capsule 100 mg PO BID #60 caps 06/02/25 07/10/25 07/10/25 08:00 Rx hydralazine 100 mg tablet 100 mg PO TID #90 tabs 06/02/25 07/10/25 07/10/25 08:00 Rx prednisone 5 mg tablet 5 mg PO DAILY #30 tabs 06/02/25 07/10/25 07/10/25 08:00 Rx bumetanide 0.5 mg tablet See Rx Instructions .Route .COMPLEX 07/09/25 07/10/25 Unknown History carvedilol 25 mg tablet 25 mg PO DAILY 07/09/25 07/10/25 07/10/25 History clonidine 0.2 mg/24 hr weekly 1 patch topical Q7D 07/09/25 07/10/25 Unknown History transdermal patch fluticasone propionate 50 1 spray intranasal BID 07/09/25 07/10/25 Unknown History mcg/actuation nasal spray,suspension hydrocodone 5 mg-acetaminophen 325 1 tab PO Q6H PRN pain #14 tabs 07/09/25 07/10/25 Unknown Rx mg tablet losartan 50 mg tablet 50 mg PO DAILY 07/09/25 07/10/25 07/10/25 History Allergies Allergy/AdvReac Type Severity Reaction Status Date / Time cranberry Allergy Severe ALGY-Swell Verified 05/30/25 08:10 Lip/Tongue/Throat codeine Allergy ADR-Halluci Verified 04/15/25 14:55 nating isosorbide Allergy ALGY-Hives Verified 06/18/25 14:37 nifedipine Allergy ALGY-Swell Verified 05/29/25 20:23 Lip/Tongue/Throat povidone-iodine (From Allergy ADR-Itching Verified 04/15/25 14:55 Betadine) simvastatin Allergy Unknown Verified 05/28/25 15:55 trazodone Allergy ADR-Vomitin Verified 04/15/25 14:55 g Current Medications Generic Name Dose Route Start Last Admin Trade Name Freq PRN Reason Stop Dose Admin Nicardipine/Sodium Chloride 20 mg in 200 mls @ 0 mls/hr 07/10/25 16:00 07/10/25 20:47 Cardene IV 0 mg/hr .Q0M RENETTA 0 mls/hr Protocol Titration Per Protocol PFSH Acute PFSH: Medical History (Updated 07/10/25 @ 17:03 by Jordyn Sosa MD) Immunosuppressed status Moderate aortic valve stenosis Hepatitis C Post hysterectomy menopause Surgical History Transplant Arteriovenous fistula removed Renal transplant recipient Social History Smoking and tobacco/nicotine status: current every day tobacco/nicotine user Alcohol intake: never Substance/Drug Use: never Vitals/I&O/Wt Last Vital Signs Temp 99.2 F 07/10/25 14:01 Pulse 81 07/10/25 20:14 Resp 14 07/10/25 20:14 BP 135/55 07/10/25 20:14 Pulse Ox 99 07/10/25 20:14 O2 Del Method Nasal Cannula 07/10/25 17:42 O2 Flow Rate 2 07/10/25 17:42 07/10/25 07/10/25 07/10/25 06:59 14:59 22:59 Intake Total 173.750 / 173.750 Balance 173.750 / 173.750 Weight last 48 hrs Weight 52.617 kg Physical Exam Narrative: lethargic , no distress on 2L NC nO JVD S1S2 RRR Lungs - clear per report abd soft , on tender no edema Data 07/10/25 15:20 07/10/25 14:20 A&P Assessment and plan 1. ESRD (end stage renal disease): 1. ESRD :HD per MWF schedule , HD tomorrow , UF of 3-4 litres as tolerated 2.Hypertensive urgency -on cardene gtt , can DC as BPs imprpved 3.s/p Fall and facial fracture 4. Anemia , Will order epogen pt evaulated using audiovisual cart. Time spent 40 min PDMP PDMP Reviewed: Not Reviewed Consult Attestations Medical Necessity Statement: per [facility] Coding Level of Care Code Acute Code for Chg Fwd Diagnoses ESRD (end stage renal disease) N18.6
[2025-07-11] VITALS (62 sets, daily range): BP systolic 133–181; BP diastolic 45–90; PULSE 75–88; RESP 0–23; TEMP 36.7–37.9; O2SAT 90–99
[2025-07-11] MEDS: nicardipine 20 MG/200 ML PREMIX 25 MG IV ×2 (01:31→09:39)
[2025-07-11 04:01] LABS: Hematocrit 26.3 % (36-47); Hemoglobin 7.70 g/dL (11.27-16.99); Mean Corpuscular HGB Conc 29.3 g/dL (30-55); Mean Corpuscular Hemoglobin 31.3 pg (27-33); Mean Corpuscular Volume 106.9 fl (85-98); Nucleated Red Blood Cells % 0 %; Platelet Count 205 10^3/cmm (157-399); Red Blood Count 2.46 10^6/uL (3.85-5.65); White Blood Count 8.99 10^3/uL (3.29-11.43)
[2025-07-11 04:31] LABS: Alanine Aminotransferase 21 U/L (0-33); Albumin Level 3.2 g/dL (3.5-5.2); Alkaline Phosphatase 72 U/L (35-105); Aspartate Amino Transferase 22 U/L (0-32); Blood Urea Nitrogen 37 mg/dL (8-23); Calcium 8.3 mg/dL (8.5-10.5); Carbon Dioxide 21 mmol/L (22-29); Chloride 99 mmol/L (98-107); Creatinine Clr Calc Pharmacy 13.2614; Globulin 2.3 g/dL (1.3-4.6); Glucose 106 mg/dL (65-115); Magnesium 2.0 mg/dL (1.7-2.3); Osmolality Calculated 291 mOsm/kg (285-295); Sodium 136 mmol/L (136-145); Total Protein 5.5 g/dL (6.6-8.7)
[2025-07-11 04:32] LABS: Anion Gap 20.9 (5-19); Potassium 4.9 mmol/L (3.5-5.1)
[2025-07-11 04:41] LABS: Slide Review Slide Review Perform
--- NOTE | 2025-07-11 09:36 | PM.PN ---
Subjective Subjective: events noted , reviewed with RN Medications: Reviewed: Yes Vitals/I&O/Wt Last Vital Signs Temp 99.5 F 07/11/25 04:00 Pulse 77 07/11/25 07:48 Resp 12 07/11/25 07:48 BP 144/57 07/11/25 07:48 Pulse Ox 97 07/11/25 06:15 O2 Del Method Nasal Cannula 07/11/25 06:15 O2 Flow Rate 2 07/11/25 06:15 07/10/25 07/11/25 07/11/25 22:59 06:59 14:59 Intake Total 173.750 / 173.750 607.167 / 780.917 Balance 173.750 / 173.750 607.167 / 780.917 Weight last 48 hrs Weight 53.5 kg Weight 52.5 kg Weight 52.617 kg Physical Exam Narrative: lethargic , no distress on 2L NC nO JVD S1S2 RRR Lungs - clear per report abd soft , on tender no edema Data 07/11/25 03:42 07/11/25 03:42 A&P Assessment and plan 1. ESRD (end stage renal disease): 1. ESRD :HD per MWF schedule , HD today, UF of 3-4 litres as tolerated 2.Hypertensive urgency -on cardene gtt , can DC as BPs improved , should improve after hd 3.s/p Fall and facial fracture 4. Anemia , Will order epogen pt evaulated using audiovisual cart. Time spent 40 min PDMP PDMP Reviewed: Not Reviewed Attestations Medical Necessity Statement*: per [facility] Coding Level of Care Code Acute Code for Chg Fwd Diagnoses ESRD (end stage renal disease) N18.6
[2025-07-11 09:59] LABS: Hepatitis B Surface Antigen Non-Reactive (Nonreactive)
[2025-07-11] MEDS: heparin, porcine 1,000 unit/mL INJ 10 mL 1000 UNIT IV (10:35)
[2025-07-11] MEDS: heparin, porcine 1,000 unit/mL INJ 10 mL 10000 UNIT INTRACATH (11:16)
--- NOTE | 2025-07-11 11:48 | PC.SOCIAL ---
IMM Updated pg 2 of IMM updated and reviewed w/ patient. Copy provided and copy dated, initialed and placed in chart.
--- NOTE | 2025-07-11 12:30 | PM.PN ---
Subjective Subjective: off cardene drip this morning, undergoing dialysis at this time Medications: Reviewed: Yes Vitals/I&O/Wt Last Vital Signs Temp 98.1 F 07/11/25 14:38 Pulse 82 07/11/25 18:00 Resp 11 L 07/11/25 18:00 BP 143/67 07/11/25 18:00 Pulse Ox 98 07/11/25 18:00 O2 Del Method Nasal Cannula 07/11/25 18:00 O2 Flow Rate 2 07/11/25 18:00 07/11/25 07/11/25 07/11/25 06:59 14:59 22:59 Intake Total 607.167 / 780.917 597.5 / 597.5 200.000 / 797.500 Output Total 3473 / 3473 Balance 607.167 / 780.917 -2875.5 / -2875.5 200.000 / -2675.500 Weight last 48 hrs Weight 54.1 kg Weight 53.5 kg Weight 52.5 kg Weight 52.617 kg Physical Exam Narrative: General: Ill appearing, chronically frail lady HEENT: extensive hematoma involving the right side of face, around right axilla including right orbit. EOMI. Chest: Normal vesicular breath sounds, no added sounds, equal good air entry bilaterally CVS: S1-S2 regular, no murmurs, no tachycardia, no gallops, no rubs Abdomen: Soft, nontender, no organomegaly, bowel sounds present Neuro: No focal deficits, no facial deformity, extensive hematoma and brusing noted. Data 07/11/25 03:42 07/11/25 03:42 Other data: Radiology Impressions Hip/Pelvis X-Ray 07/10/25 14:02 IMPRESSION: Mild osteoarthritis with no acute abnormality. Cervical Spine CT 07/10/25 14:25 IMPRESSION: The examination is unchanged compared to the study of the previous day. No acute abnormality is identified. Face CT 07/10/25: IMPRESSION: Acute fracture of the anterior and posterior wall of right maxillary sinus. Acute fracture of the floor of right orbit. ADDENDUM: 07/10/25 1604 THIS REPORT CONTAINS FINDINGS THAT MAY BE CRITICAL TO PATIENT CARE. CARLITOS Mosqueda has the report and has no more questions at 4:02 PM CDT on 07/10/2025. The findings were acknowledged and understood. Head CT 07/10/25 14:25 IMPRESSION: Stable right facial bone fractures. Stable intracranial contents with no acute abnormality. Wrist X-Ray 07/10/25 16:12 IMPRESSION: Acute fracture of the distal radial metaphyses with the fracture line extending into the distal radial diaphysis. Dorsal angulation of the distal fracture fragment. Abdomen/Pelvis CT 07/10/25 16:13 IMPRESSION: 1. Mildly displaced fractures in the lateral left sacral ala, superomedial left iliac bone, and anterior wall of the left acetabulum. 2. Cholelithiasis with mild wall enhancement and trace pericholecystic fluid. Cholecystitis can not be entirely excluded. 3. Findings of volume overload with pleural effusions, trace ascites, and body wall edema. 4. Severely atrophic [place] kidneys with a left pelvic renal transplant. Mild hydronephrosis in the transplant kidney without visible calculus. COMMENTS: Consistent with the [employer]'s Incidental Findings Committee white paper (J Am Axel Radiol 2018): Any incidental renal lesion less than 1 cm or classified as too small to characterize, or any incidental cystic renal lesion characterized as simple-appearing, is likely benign. No follow-up imaging is recommended for these lesions per consensus recommendations based on imaging criteria. Chest X-Ray 07/10/25 16:56 IMPRESSION: 1. Cardiomegaly with mild pulmonary edema. 2. Small to moderate left pleural effusion. Laboratory Results WBC 8.99 10^3/uL (3.29-11.43) 07/11/25 03:42 Corrected WBC Cancelled 07/10/25 14:20 RBC 2.46 10^6/uL (3.85-5.65) L 07/11/25 03:42 Hgb 7.70 g/dL (11.27-16.99) L 07/11/25 03:42 Hct 26.3 % (36-47) L 07/11/25 03:42 MCV 106.9 fl (85-98) H 07/11/25 03:42 MCH 31.3 pg (27-33) 07/11/25 03:42 MCHC 29.3 g/dL (30-55) L D 07/11/25 03:42 RDW 17.5 % (12.1-15.1) H 07/11/25 03:42 Plt Count 205 10^3/cmm (157-399) 07/11/25 03:42 MPV 10.7 fL (7.4-10.4) H 07/11/25 03:42 Gran % Cancelled 07/10/25 14:20 Neut % (Auto) 79.4 % 07/11/25 03:42 Lymph % (Auto) 6.9 % 07/11/25 03:42 Coffee % (Auto) 10.2 % 07/11/25 03:42 Eos % (Auto) 2.1 % 07/11/25 03:42 Baso % (Auto) 0.7 % 07/11/25 03:42 Neut # (Auto) 7.14 10^3/uL (1.8-7.7) 07/11/25 03:42 Lymph # (Auto) 0.6 10^3/uL (0.8-4.8) L 07/11/25 03:42 Coffee # (Auto) 0.9 10^3/uL (0.2-0.9) 07/11/25 03:42 Eos # (Auto) 0.2 10^3/uL (0.0-0.8) 07/11/25 03:42 Baso # (Auto) 0.1 10^3/uL (0.0-0.1) 07/11/25 03:42 Absolute Gran (auto) Cancelled 07/10/25 14:20 Nucleated RBC % (auto) 0 % 07/11/25 03:42 Nucleated RBCs # 0.0 /100WBC 07/11/25 03:42 Sodium 136 mmol/L (136-145) 07/11/25 03:42 Potassium 4.9 mmol/L (3.5-5.1) 07/11/25 03:42 Chloride 99 mmol/L (98-107) 07/11/25 03:42 Carbon Dioxide 21 mmol/L (22-29) L 07/11/25 03:42 Anion Gap 20.9 (5-19) H 07/11/25 03:42 BUN 37 mg/dL (8-23) H 07/11/25 03:42 Creatinine 3.5 mg/dL (0.5-0.9) H 07/11/25 03:42 GFR Calculation 13.2 mL/min (90-130) L 07/11/25 03:42 Glucose 106 mg/dL (65-115) 07/11/25 03:42 POC Glucose 140 mg/dL (70-110) H 07/11/25 17:06 Calculated Osmolality 291 mOsm/kg (285-295) 07/11/25 03:42 Calcium 8.3 mg/dL (8.5-10.5) L 07/11/25 03:42 Magnesium 2.0 mg/dL (1.7-2.3) 07/11/25 03:42 Total Bilirubin 0.2 mg/dL (0.15-1.2) 07/11/25 03:42 AST 22 U/L (0-32) 07/11/25 03:42 ALT 21 U/L (0-33) 07/11/25 03:42 Alkaline Phosphatase 72 U/L (35-105) 07/11/25 03:42 Total Protein 5.5 g/dL (6.6-8.7) L 07/11/25 03:42 Albumin 3.2 g/dL (3.5-5.2) L 07/11/25 03:42 Globulin 2.3 g/dL (1.3-4.6) 07/11/25 03:42 Urine Color Yellow (Yellow) 07/10/25 14:40 Urine Appearance Clear (CLEAR) 07/10/25 14:40 Urine pH 8.5 (5-7) A 07/10/25 14:40 Ur Specific [place] 1.016 (1.005-1.030) 07/10/25 14:40 Urine Protein 3+ (Negative) A 07/10/25 14:40 Urine Glucose (UA) Trace (Normal) H 07/10/25 14:40 Urine Ketones Negative (Negative) 07/10/25 14:40 Urine Blood Negative (Negative) 07/10/25 14:40 Urine Nitrate Negative (Negative) 07/10/25 14:40 Urine Bilirubin Negative (Negative) 07/10/25 14:40 Urine Urobilinogen 0.2 mg/dL (Negative) 07/10/25 14:40 Ur Leukocyte Esterase Negative (Negative) 07/10/25 14:40 Urine RBC 0-2 /hpf (0-2) 07/10/25 14:40 Urine WBC 6-10 /hpf (0-5) 07/10/25 14:40 Ur Squamous Epith Cells 0-4 /hpf (0-5) H 07/10/25 14:40 Amorphous Sediment Not Reportable 07/10/25 14:40 Urine Bacteria Trace /hpf (NONE) 07/10/25 14:40 Hep Bs Antigen Non-reactive (Nonreactive) 07/10/25 14:20 Hep Bs Antibody < 3.5 (11.5-1000) L 07/10/25 14:20 A&P Assessment and plan 1. Distal radius fracture, left: 2. Facial fracture: 3. Fall: 4. Accelerated hypertension: 5. ESRD (end stage renal disease): 6. Hypertensive urgency: 7. Hypertensive encephalopathy: 8. Anemia: 9. Orbital floor fracture: 10. Pelvic fracture: Plan: #1 Hypertensive urgency with encephalopathy - Patient is with hypertensive urgency today with yet another encephalopathy associated - This is not new for the patient patient usually gets confused when the blood pressure gets high the attending physician tells me in the ED - Initial presenting blood pressure was 240/110 and patient was confused - Patient received labetalol 10 mg IV and then another hydralazine 20 mg IV systolic blood pressure had not gone below 200 - Cardene was initiated for ICU admission and care - Upon my evaluating the patient patient was beginning to be coherent and doing okay pretty much alert awake oriented x 3 systolic blood pressure was 200/100 at the time post ED care under Dr. Cui #2 Facial bone fracture yesterday status post mechanical fall - Patient already was seen in the ED yesterday and had been referred to ENT outpatient - Patient need to follow-up with ENT after this hospitalization #3 Left wrist pain - X-ray obtained and was significant for left wrist fracture - Site splinted - Patient to follow-up with orthopedics outpatient - Continue pain management #4 End-stage renal disease requiring chronic hemodialysis patient fell awaited kidney transplant - Nephrology had been consulted for chronic hemodialysis - Patient had a partial hemodialysis yesterday for 1 reason at the other not a full course - Nephrology had been called through telemetry nephrology with no callback - I am placing order under Dr. Murillo who might not be 1 on-call at this time we are still waiting for telemetry nephrology to return call #5 GI and DVT prophylaxis in place 07/11/25: 64 F with PMH CKD s/p failed transplant currently on MMF, tacrolimus and po prednisone 5mg daily presenting with h/o recurrent falls. She states that she has episodes of hypotension at home with BP as low as 80/40s which leads to dizziness and falls. She comes in with a fall at home wherein she fell over step at home. This has resulted in several fractures including pelvic fracture, left acetabular fracture, left radial fracture with angulation, right orbital blowout fracture .Patient had initially presented to the ER with falls on 07/09 and was found to have increased IOP in the 30s for which she underwent urgent lateral canthotomy in the ER on 07/[address] Mike. Her case was discussed with ENT at [facility] and it was opined that patient should follow up within 7 days. She returned to the ER On 07/10 where she was found to have additional fractures as noted above and admitted in view of hypertensive urgency. Currently BP is better controlled. Cardene drip turned off this morning. Start po carvedilol at 12.5 mg BID (home dose) and hydralazine 25mg TID, lowered from 100mg TID as she takes at home. Suspect patient may be having orthostatic BP drop at home. Check Cortisol level given she is on chronic steroids, check for adrenal insufficiency. She will need orthopedic consult during her hospital stay. Following orthopedic assessment, if no surgical intervention is recommended will need PT/OT. D/c heparin s/c given extensive hematoma over face and subconjunctival bleeding. resume tacrolimus and MMF and oral prednisone. Patient is extremely frail and deconditioned, unsafe to be discharged home alone. Will need appropriate disposition planning. PDMP PDMP Reviewed: Not Reviewed Attestations Medical Necessity Statement*: off cardene drip, titrate BP meds, multiple fractures, ortho consult, dialysis, disposition planning. Coding Level of Care Code Acute Code for Chg Fwd High MDM includes number and complexity of problems actively addressed during encounter, amount and/or complexity of data reviewed/ordered and described risk of complication, morbidity or mortality of management as documented Diagnoses Distal radius fracture, left S52.502A Facial fracture S02.92XA Fall W19.XXXA Encounter type: initial encounter Accelerated hypertension I10 ESRD (end stage renal disease) N18.6 Hypertensive urgency I16.0 Hypertensive encephalopathy I67.4 Anemia D64.9 Orbital floor fracture S02.30XA Pelvic fracture S32.9XXA
[2025-07-11] MEDS: nicardipine 20 MG/200 ML PREMIX 50 MG IV (17:19)
[2025-07-11] MEDS: morphine 4 mg/mL SDV 1 mL IVP (19:19)
--- NOTE | 2025-07-11 21:53 | PC.NURSE ---
Dr. Dave started anti-rejection medicines. Pharmacy called to check if pt brought home meds. This nurse asked pt about home meds. Originally, pt stated she brought home meds. Home meds were not found in her purse, so this nurse will talk to dayshift. Pharmacist mentioned possibly getting a refill via meds to beds to restart medicine tomorrow.
[2025-07-12] VITALS (50 sets, daily range): BP systolic 156–218; BP diastolic 71–110; PULSE 65–80; RESP 0–20; TEMP 36.1–37.2; O2SAT 93–100
[2025-07-12] MEDS: morphine 4 mg/mL SDV 1 mL IVP (03:25)
[2025-07-12] MEDS: HYDROcodone-acetaminophen 5-325 mg Tablet 1 TAB PO ×2 (04:26→16:33)
[2025-07-12 04:29] LABS: Hematocrit 26.1 % (36-47); Hemoglobin 8.20 g/dL (11.27-16.99); Mean Corpuscular HGB Conc 31.4 g/dL (30-55); Mean Corpuscular Hemoglobin 31.8 pg (27-33); Mean Corpuscular Volume 101.2 fl (85-98); Nucleated Red Blood Cells % 0 %; Platelet Count 229 10^3/cmm (157-399); Red Blood Count 2.58 10^6/uL (3.85-5.65); White Blood Count 6.31 10^3/uL (3.29-11.43)
[2025-07-12 05:09] LABS: Alanine Aminotransferase 17 U/L (0-33); Albumin Level 3.3 g/dL (3.5-5.2); Alkaline Phosphatase 77 U/L (35-105); Anion Gap 14.3 (5-19); Aspartate Amino Transferase 17 U/L (0-32); Blood Urea Nitrogen 19 mg/dL (8-23); Calcium 8.2 mg/dL (8.5-10.5); Carbon Dioxide 26 mmol/L (22-29); Chloride 98 mmol/L (98-107); Globulin 1.9 g/dL (1.3-4.6); Glucose 99 mg/dL (65-115); Magnesium 1.9 mg/dL (1.7-2.3); Osmolality Calculated 280 mOsm/kg (285-295); Potassium 4.3 mmol/L (3.5-5.1); Sodium 134 mmol/L (136-145); Total Protein 5.2 g/dL (6.6-8.7)
[2025-07-12 05:23] LABS: Creatinine Clr Calc Pharmacy 19.5820
[2025-07-12 06:44] LABS: Thyroid Stimulating Hormone 4.58 uIU/mL (0.27-4.20)
--- NOTE | 2025-07-12 07:15 | USR_ITS ---
PROCEDURE INFORMATION: Exam: US Duplex Bilateral Extracranial Arteries; Complete; Carotid Arteries Exam date and time: 07/12/2025 2:45 PM Age: 64 years old Clinical indication: Syncope and collapse TECHNIQUE: Imaging protocol: Real-time duplex ultrasound scan of the bilateral extracranial arteries combining wayne scale, color Doppler and spectral waveform analysis with image documentation. Complete exam. Exam focused on the carotid arteries. COMPARISON: CT cervical spin wo con* [id number] 07/10/2025 2:56 PM FINDINGS: Right common carotid artery: Unremarkable. No occlusion or stenosis. Waveforms are normal. Right internal carotid artery: Unremarkable. No occlusion or stenosis. Waveforms are normal. Peak systolic velocity measures 46.4 cm/sec. Right ICA/CCA ratio: Within normal limits, 0.9. Right external carotid artery: No stenosis in the origin. Right vertebral artery: Unremarkable. Antegrade flow. Left common carotid artery: Unremarkable. No occlusion or stenosis. Waveforms are normal. Left internal carotid artery: Unremarkable. No occlusion or stenosis. Waveforms are normal. Peak systolic velocity measures 56.4 cm/sec. Left ICA/CCA ratio: Within normal limits, 0.9. Left external carotid artery: No stenosis in the origin. Left vertebral artery: Unremarkable. Antegrade flow. US/CV carotid duplex BI* [id number] IMPRESSION: No carotid arterial stenosis. REFERENCES: SRU CRITERIA. The degree of internal carotid artery stenosis is based on criteria defined by the Society of Radiologists in Ultrasound (SRU). Normal is no stenosis. Mild is less than 50% stenosis. Moderate is 50-69% stenosis. Severe is greater than 69% stenosis to near occlusion. Near occlusion is a markedly narrowed lumen. Total occlusion is no detectable patent lumen. Leah Akers, et al. Carotid Artery Stenosis: Wayne-Scale and Doppler US Diagnosis-Society of Radiologists in Ultrasound Consensus Conference. Radiology 2003; 229:340-346.
--- NOTE | 2025-07-12 09:07 | PC.NURSE ---
several bruises noted generalized and face, from fall some confusion bedrest at this time pelvic fraction wrap on left arm pending ortho consult, noted blood pressure high increased medication
--- NOTE | 2025-07-12 09:12 | PC.OT ---
OT EVALUATION ORDERS RECEIVED. PATIENT IS AWAITING ORTHO CONSULT. WILL HOLD OT EVALUATION UNTIL AFTER ORTHO CONSULT
--- NOTE | 2025-07-12 09:22 | PM.CONSULT ---
Providers/Reason For Consult Consulting Physician/Specialty*: Onur Ardon DO/orthopedic surgery Reason for Consult*: Left wrist fracture Left pelvic fracture Requesting Physician: Dr. Dave Attending Physician: Renetta Dave MD Primary Care Provider: Ale Olivier MD History of Present Illness History of Present Illness Yu Nunez is a 64 year old female who had a fall prior to her admission at reviewed with patient and hospitalist sounds as though secondary to uncontrolled blood pressure patient currently in ICU and orthopedics was consulted for evaluation and treatment recommendations below was patient's HPI per primary team. Patient complaining of left wrist pain which she is currently in a sugar-tong splint this comes out past the fingertips. She also is complaining of left pelvic and posterior pelvic pain. Patient also has ecchymosis about her face secondary to her fall. PRimary HPI: Yu Nunez is a 64 year old female who looks much older than the stated age, presented to the emergency room confused today with hypertensive urgency blood pressure was 240/110. Patient is well-known to the emergency room department and will come in confused with very high blood pressure. Patient was in the ED for a very recent fall yesterday with remarkable right facial bone fracture and was set up to go follow-up with ENT by the emergency room department. There were no brain bleed no other issues or trauma to the brain Patient had a have a dose of hemodialysis yesterday at her dialysis. Dialysis days are Fridays. Patient only to return today confused. Antihypertensive medication has been given blood pressure had not gone anywhere below 200. At this time emergency room department initiating Cardene drip for ICU admission. Patient baseline hemoglobin had always been between 7 and 7.8. Yesterday it was noted to be 9.7 post hemodialysis and today 7.8. A scan of the abdomen and pelvis had been done at this time by the emergency room department to make sure that the patient had not lost 2 units of blood somewhere in the retroperitoneal area. Patient did have a left wrist fracture this had been splinted patient is to follow-up with outpatient orthopedics. Review of Systems General: Reports: 10 or more systems reviewed and unremarkable except in HPI and below Medications/Allergies Home Medications ?Medication ?Instructions ?Recorded ?Confirmed ?Last Taken ?Type ascorbic acid (vitamin C) 500 mg 500 mg PO BID@0700,1730 09/13/20 07/10/25 07/10/25 07:00 History tablet (Vitamin C) aspirin 81 mg chewable tablet 81 mg PO DAILY@2100 09/13/20 07/10/25 07/10/25 07:00 History loperamide 2 mg capsule 2 mg PO TID PRN Diarrhea 09/13/20 07/10/25 Unknown History magnesium oxide 400 mg (241.3 mg 400 mg PO DAILY 09/13/20 07/10/25 07/09/25 20:00 History magnesium) tablet vitamin E acetate 134 mg (200 400 unit PO DAILY@0700 09/13/20 07/10/25 07/10/25 07:00 History unit) capsule cholecalciferol (vitamin D3) 25 25 mcg PO DAILY 05/28/25 07/10/25 07/10/25 History mcg (1,000 unit) capsule (Vitamin D3) mycophenolate sodium 180 mg 180 mg PO QID 05/28/25 07/10/25 07/10/25 08:00 History tablet,delayed release vitamins with calcium 27 tab PO DAILY 05/28/25 07/10/25 07/10/25 09:00 History no.72-iron 27 mg-folic acid 1 mg tablet ( Vitamins Plus Low Iron) tacrolimus 0.5 mg capsule, See Rx Instructions .Route .COMPLEX 05/28/25 07/10/25 07/10/25 08:30 History immediate-release clonidine HCl 0.1 mg tablet 0.1 mg PO TID #90 tabs 06/02/25 07/10/25 07/10/25 08:30 Rx docusate sodium 100 mg capsule 100 mg PO BID #60 caps 06/02/25 07/10/25 07/10/25 08:00 Rx hydralazine 100 mg tablet 100 mg PO TID #90 tabs 06/02/25 07/10/25 07/10/25 08:00 Rx prednisone 5 mg tablet 5 mg PO DAILY #30 tabs 06/02/25 07/10/25 07/10/25 08:00 Rx bumetanide 0.5 mg tablet See Rx Instructions .Route .COMPLEX 07/09/25 07/10/25 Unknown History carvedilol 25 mg tablet 25 mg PO DAILY 07/09/25 07/10/25 07/10/25 History clonidine 0.2 mg/24 hr weekly 1 patch topical Q7D 07/09/25 07/10/25 Unknown History transdermal patch fluticasone propionate 50 1 spray intranasal BID 07/09/25 07/10/25 Unknown History mcg/actuation nasal spray,suspension erythromycin 5 mg/gram (0.5 %) eye 1 applic eye-right QID #1 g 07/15/25 Unknown Rx ointment (3.5 gram tube) hydrocodone 5 mg-acetaminophen 325 1 tab PO Q6H PRN pain (scale score 07/15/25 Unknown Rx mg tablet 7-10) #14 tabs losartan 50 mg tablet 100 mg (2 x 50 mg) PO Q24H #30 tabs 07/15/25 Unknown Rx Allergies Allergy/AdvReac Type Severity Reaction Status Date / Time cranberry Allergy Severe ALGY-Swell Verified 05/30/25 08:10 Lip/Tongue/Throat codeine Allergy ADR-Halluci Verified 04/15/25 14:55 nating nifedipine Allergy ALGY-Swell Verified 05/29/25 20:23 Lip/Tongue/Throat povidone-iodine (From Allergy ADR-Itching Verified 04/15/25 14:55 Betadine) simvastatin Allergy Unknown Verified 05/28/25 15:55 trazodone Allergy ADR-Vomitin Verified 04/15/25 14:55 g Current Medications Generic Name Dose Route Start Last Admin Trade Name Freq PRN Reason Stop Dose Admin Hydrocodone Bitart/Acetaminophen 1 tab 07/11/25 19:33 07/12/25 04:26 Hydrocodone-Acetaminophen 5-325 Mg Tablet PO 1 tab Q6H PRN Administration PAIN Carvedilol 12.5 mg 07/12/25 05:00 07/12/25 04:03 Carvedilol 25 Mg Tablet PO 12.5 mg BID RENETTA Administration Morphine Sulfate 4 mg 07/10/25 16:39 07/12/25 03:25 Morphine 4 Mg/Ml Sdv 1 Ml IVP 4 mg Q4H PRN Administration SEVERE PAIN Pantoprazole Sodium 40 mg 07/12/25 05:00 07/12/25 04:[address] 40 Mg Tablet PO 40 mg DAILY RENETTA Administration Prednisone 5 mg 07/12/25 05:00 07/12/25 04:03 Prednisone 5 Mg Tablet PO 5 mg DAILY RENETTA Administration Tacrolimus 1.5 mg 07/11/25 21:30 07/12/25 04:03 Tacrolimus 0.5 Mg Capsule PO 1.5 mg BID RENETTA Administration PFSH Acute PFSH: Medical History (Updated 07/16/25 @ 21:52 by Onur Ardon DO) Immunosuppressed status Moderate aortic valve stenosis Hepatitis C Post hysterectomy menopause Surgical History Transplant Arteriovenous fistula removed Renal transplant recipient Social History Smoking and tobacco/nicotine status: current every day tobacco/nicotine user Alcohol intake: never Substance/Drug Use: never Vitals/I&O/Wt Last Vital Signs Temp 98.9 F 07/12/25 00:16 Pulse 76 07/12/25 08:30 Resp 12 07/12/25 08:30 BP 156/71 07/12/25 08:30 Pulse Ox 99 07/12/25 08:30 O2 Del Method Nasal Cannula 07/11/25 18:00 O2 Flow Rate 2 07/11/25 18:00 07/11/25 07/12/25 07/12/25 22:59 06:59 14:59 Intake Total 338.333 / 935.833 300 / 300 Balance 338.333 / -2537.167 300 / 300 Weight last 48 hrs Weight 119 lb 4.321 oz Weight 117 lb 15.157 oz Weight 115 lb 11.883 oz Weight 116 lb Physical Exam Narrative: Examination left upper extremity: Examination left upper extremity sugar-tong splint sewn in place. Patient currently is able to wiggle the fingers brisk cap refill less than 2 seconds. She denies any tenderness to palpation proximally at the shoulder or the elbow sugar-tong splint in good place and positioning. Patient through the splint does have tenderness palpation at the distal radius. Fingertips are warm well-perfused brisk cap refill less than 2 seconds. Compartments soft and compressible. Splint does limit full examination left upper extremity however patient does endorse sensation intact light touch distally. Examination of the left lower extremity: Examination left lower extremity demonstrates patient is able to wiggle the toes plantarflex and dorsiflex ankle she has a negative logroll examination is able to perform Stinchfield's examination but does have pain with resisted hip flexion. She is able to flex and extend at the knee. No tenderness palpation about the left foot and ankle knee and hip mild tenderness to palpation at the anterior groin near the superior pubic rami. No appreciable ischial tuberosity tenderness palpation. Patient does have significant tenderness palpation posteriorly at the left sacral area iliac wing near the SI joint. Patient has a negative pelvic compression test. Secondary survey examination reveals patient does have significant bruising and ecchymosis about the face secondary to her fall. No other complaints and unremarkable findings to to the right upper extremity or the right lower extremity at this time. Data 07/15/25 04:10 07/15/25 04:10 Xray Ortho: Radiologist's impression: Patient: Yu Nunez Unit #: [id number] : 1960 Age/Sex: 64 / F ADM Date: 07/10/25 Loc: ER IP Room/Bed: [place] [address]: Jordyn Sosa MD Ordering Provider/Ordering MD: Aaron Lo DO Date of Service: 07/10/25 Procedure(s): XR wrist LT min 3V* [id number] Accession Number(s): [id number] Report Number: [id number] PROCEDURE INFORMATION: Exam: XR Left Wrist Exam date and time: 07/10/2025 4:30 PM Age: 64 years old Clinical indication: Pain; Wrist; Left; Additional info: Wrist pain TECHNIQUE: Imaging protocol: Radiologic exam of the left wrist. Views: 3 or more views. COMPARISON: No relevant prior studies available. FINDINGS: Bones/joints: Acute fracture of the distal radial metaphyses with the fracture line extending into the distal radial diaphysis. Dorsal angulation of the distal fracture fragment. Diffuse demineralization of the bones. Soft tissues: Normal. Vasculature: Vascular calcifications. XR/XR wrist LT min 3V* [id number] IMPRESSION: Acute fracture of the distal radial metaphyses with the fracture line extending into the distal radial diaphysis. Dorsal angulation of the distal fracture fragment. [address] [address] [address] Scan Report Signed Patient: Yu Nunez Unit #: [id number] : 1960 Age/Sex: 64 / F ADM Date: 07/10/25 Loc: ER IP Room/Bed: [place] [address]: Jordyn Sosa MD Ordering Provider/Ordering MD: Aaron Lo DO Date of Service: 07/10/25 Procedure(s): CT abdomen pelvis w con* [id number] Accession Number(s): [id number] Report Number: [id number] PROCEDURE INFORMATION: Exam: CT Abdomen And Pelvis With Contrast Exam date and time: 07/10/2025 4:42 PM Age: 64 years old Clinical indication: Abdominal pain; Prior surgery; Surgery date: 6+ months; Surgery type: Kidney/spleen transplant, hyst, dialysis catheter; Presents with weakness an injuries after fall. ; Additional info: Abd pain TECHNIQUE: Imaging protocol: Computed tomography of the abdomen and pelvis with contrast. Radiation optimization: All CT scans at this facility use at least one of these dose optimization techniques: automated exposure control; mA and/or kV adjustment per patient size (includes targeted exams where dose is matched to clinical indication); or iterative reconstruction. Contrast material: [id number]; Contrast volume: 80 ml; Contrast route: INTRAVENOUS (IV); COMPARISON: MR MRCP [id number] 05/29/2025 10:28 AM RADIATION DOSE METRICS: Total DLP (mGy-cm): 59653 FINDINGS: Lungs: Atelectasis in the lung bases, left greater than right. Pleural spaces: Moderate left and small right pleural effusions. Coronary arteries: Coronary artery calcifications. Liver: Normal. No mass. Gallbladder and biliary ducts: Fluid distended gallbladder with multiple small calcified stones measuring up to 7 mm. Mild wall enhancement with no thickening. Trace pericholecystic fluid. The bile ducts are normal. Pancreas: Normal. No ductal dilation. Spleen: Normal. No splenomegaly. Adrenal glands: Normal. No mass. Kidneys and ureters: Severely atrophic bilateral kidneys. No hydronephrosis. Transplanted kidney in the left pelvis with mild hydronephrosis and no visible calculus. Small cortical lesion in the transplant kidney is too small to characterize and is most likely a cyst. No follow-up imaging is recommended. Stomach and bowel: Diverticulosis of the distal colon. No diverticulitis. The stomach and small bowel are unremarkable. No wall thickening or obstruction. Appendix: The appendix is visualized and is normal. Intraperitoneal space: Trace pelvic ascites. No pneumoperitoneum. Vasculature: Dense arterial calcifications. No aortic aneurysm. 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 Lymph nodes: Unremarkable. No enlarged lymph nodes. Urinary bladder: Unremarkable as visualized. Reproductive: Hysterectomy. Small retained ovaries. Bones/joints: Mildly displaced fracture in the lateral left sacral ala. Mildly displaced fracture in the superomedial left iliac bone. Mildly displaced fracture in the anterior wall of the left acetabulum. Degenerative changes in the spine. Mild central depression of the superior L3 endplate. Soft tissues: Diffuse body wall edema. Sutures in the anterior low pelvis. CT/CT abdomen pelvis w con* [id number] IMPRESSION: 1. Mildly displaced fractures in the lateral left sacral ala, superomedial left iliac bone, and anterior wall of the left acetabulum. 2. Cholelithiasis with mild wall enhancement and trace pericholecystic fluid. Cholecystitis can not be entirely excluded. 3. Findings of volume overload with pleural effusions, trace ascites, and body wall edema. 4. Severely atrophic [place] kidneys with a left pelvic renal transplant. Mild hydronephrosis in the transplant kidney without visible calculus. COMMENTS: Consistent with the [employer]'s Incidental Findings Committee white paper (J Am Axel Radiol 2018): Any incidental renal lesion less than 1 cm or classified as too small to characterize, or any incidental cystic renal lesion characterized as simple-appearing, is likely benign. No follow-up imaging is recommended for these lesions per consensus recommendations based on imaging criteria. A&P Assessment and plan 1. Distal radius fracture, left: 2. Sacral fracture, closed: 3. Fracture of iliac win. Left acetabular fracture: Plan: Imaging reviewed Patient has left distal radius fracture Maintain sugar-tong splint for left distal radius fracture Will transition to cast on Monday Patient has a left sacral ala and posterior iliac nondisplaced fractures as well as a nondisplaced fracture of the left anterior acetabulum. Plan for toe-touch weightbearing to left lower extremity Nonweightbearing to left lower extremity except for patient may utilize platform walker to mobilize through the forearm on the left upper extremity while patient has splint or cast in place DVT prophylaxis per primary Discussed treatment options with patient she understands and agrees with current plan. All questions answered at this time. Orthopedics will continue to follow and plan to transition her to a left upper extremity short arm cast for left distal radius fracture Patient at this point in time sustained a fall and has a minimally displaced left distal radius fracture angulation at this point time still appears to have acceptable parameters we will continue observation with this and transition her into a cast on Monday. As pertaining to her pelvic fracture she does have a sacral ala and iliac fracture as well as left pubic root fracture into the left anterior acetabulum. At this point in time the left lower extremity fractures are in good alignment position and would recommend toe-touch weightbearing for this. Will encourage DVT prophylaxis per primary and plan for PT/OT maintaining restrictions. Patient understands and agrees with current plan. All questions answered. PDMP PDMP Reviewed: Not Reviewed Coding Level of Care Code Acute Code for [facility] Fwd Diagnoses Distal radius fracture, left S52.502A Sacral fracture, closed S32.10XA Fracture of iliac wing S32.309A Left acetabular fracture S32.402A
--- NOTE | 2025-07-12 09:57 | P.PN_ITS ---
Subjective 2 Subjective: s/p hd yesterday Medications: Reviewed: Yes Vitals/I&O/Wt Last Vital Signs Temp 98.9 F 07/12/25 00:16 Pulse 76 07/12/25 08:30 Resp 12 07/12/25 08:30 BP 156/71 07/12/25 08:30 Pulse Ox 99 07/12/25 08:30 O2 Del Method Nasal Cannula 07/11/25 18:00 O2 Flow Rate 2 07/11/25 18:00 07/11/25 07/12/25 07/12/25 22:59 06:59 14:59 Intake Total 338.333 / 935.833 300 / 300 Balance 338.333 / -2537.167 300 / 300 Weight last 48 hrs Weight 54.1 kg Weight 53.5 kg Weight 52.5 kg Weight 52.617 kg Physical Exam 2 Narrative: lethargic , no distress on 2L NC nO JVD S1S2 RRR Lungs - clear per report abd soft , on tender no edema Data 07/12/25 03:57 07/12/25 03:57 A&P Assessment and plan 1. ESRD (end stage renal disease): 1. ESRD :HD per MWF schedule ,UF of 3-4 litres as tolerated 2.Hypertensive urgency -off cardene gtt , resumed home meds 3.s/p Fall and facial fracture 4. Anemia , s/p epogen 5. s/p failed renal transplant - continue immunosupressants , and slow taper as outpt pt evaulated using audiovisual cart. Time spent 40 min PDMP PDMP Reviewed: Not Reviewed Attestations 2 Medical Necessity Statement*: per m ediicne Coding Level of Care Code Acute Code for [facility] Fwd Diagnoses ESRD (end stage renal disease) N18.6
[2025-07-12] MEDS: NON-FORMULARY MEDICATION (Mycophenolate Sodium 180 mg tablet,delayed release (DR/EC)) 180 EACH PO ×3 (10:48→22:15)
[2025-07-12] MEDS: hyDRALAzine 20 mg/mL INJ 1 mL 10 MG IVP ×2 (12:13→19:18)
--- NOTE | 2025-07-12 13:06 | PM.PN ---
Subjective Subjective: Right eye noted to have mild discharge. Blood pressure trending towards hypertension. Increasing hydralazine today. Medications: Reviewed: Yes Vitals/I&O/Wt Last Vital Signs Temp 97 F L 07/12/25 09:30 Pulse 71 07/12/25 10:00 Resp 12 07/12/25 10:00 BP 218/106 07/12/25 12:13 Pulse Ox 100 07/12/25 10:00 O2 Del Method Nasal Cannula 07/11/25 18:00 O2 Flow Rate 2 07/11/25 18:00 07/11/25 07/12/25 07/12/25 22:59 06:59 14:59 Intake Total 338.333 / 935.833 300 / 300 Balance 338.333 / -2537.167 300 / 300 Weight last 48 hrs Weight 54.1 kg Weight 53.5 kg Weight 52.5 kg Weight 52.617 kg Physical Exam Narrative: General: Ill appearing, chronically frail lady HEENT: extensive hematoma involving the right side of face, around right axilla including right orbit. EOMI. Chest: Normal vesicular breath sounds, no added sounds, equal good air entry bilaterally CVS: S1-S2 regular, no murmurs, no tachycardia, no gallops, no rubs Abdomen: Soft, nontender, no organomegaly, bowel sounds present Neuro: No focal deficits, no facial deformity, extensive hematoma and brusing noted. Data 07/13/25 03:27 07/13/25 03:27 A&P Assessment and plan 1. Distal radius fracture, left: 2. Facial fracture: 3. Fall: 4. Accelerated hypertension: 5. ESRD (end stage renal disease): 6. Hypertensive urgency: 7. Hypertensive encephalopathy: 8. Anemia: 9. Orbital floor fracture: 10. Pelvic fracture: Plan: #1 Hypertensive urgency with encephalopathy - Patient is with hypertensive urgency today with yet another encephalopathy associated - This is not new for the patient patient usually gets confused when the blood pressure gets high the attending physician tells me in the ED - Initial presenting blood pressure was 240/110 and patient was confused - Patient received labetalol 10 mg IV and then another hydralazine 20 mg IV systolic blood pressure had not gone below 200 - Cardene was initiated for ICU admission and care - Upon my evaluating the patient patient was beginning to be coherent and doing okay pretty much alert awake oriented x 3 systolic blood pressure was 200/100 at the time post ED care under Dr. Cui #2 Facial bone fracture yesterday status post mechanical fall - Patient already was seen in the ED yesterday and had been referred to ENT outpatient - Patient need to follow-up with ENT after this hospitalization #3 Left wrist pain - X-ray obtained and was significant for left wrist fracture - Site splinted - Patient to follow-up with orthopedics outpatient - Continue pain management #4 End-stage renal disease requiring chronic hemodialysis patient fell awaited kidney transplant - Nephrology had been consulted for chronic hemodialysis - Patient had a partial hemodialysis yesterday for 1 reason at the other not a full course - Nephrology had been called through telemetry nephrology with no callback - I am placing order under Dr. Murillo who might not be 1 on-call at this time we are still waiting for telemetry nephrology to return call #5 GI and DVT prophylaxis in place 07/11/25: 64 F with PMH CKD s/p failed transplant currently on MMF, tacrolimus and po prednisone 5mg daily presenting with h/o recurrent falls. She states that she has episodes of hypotension at home with BP as low as 80/40s which leads to dizziness and falls. She comes in with a fall at home wherein she fell over step at home. This has resulted in several fractures including pelvic fracture, left acetabular fracture, left radial fracture with angulation, right orbital blowout fracture .Patient had initially presented to the ER with falls on 07/09 and was found to have increased IOP in the 30s for which she underwent urgent lateral canthotomy in the ER on 07/[address] Mike. Her case was discussed with ENT at [facility] and it was opined that patient should follow up within 7 days. She returned to the ER On 07/10 where she was found to have additional fractures as noted above and admitted in view of hypertensive urgency. Currently BP is better controlled. Cardene drip turned off this morning. Start po carvedilol at 12.5 mg BID (home dose) and hydralazine 25mg TID, lowered from 100mg TID as she takes at home. Suspect patient may be having orthostatic BP drop at home. Check Cortisol level given she is on chronic steroids, check for adrenal insufficiency. She will need orthopedic consult during her hospital stay. Following orthopedic assessment, if no surgical intervention is recommended will need PT/OT. D/c heparin s/c given extensive hematoma over face and subconjunctival bleeding. resume tacrolimus and MMF and oral prednisone. Patient is extremely frail and deconditioned, unsafe to be discharged home alone. Will need appropriate disposition planning. July 12, 2025 Increase hydralazine to 100 mg 3 times daily. Resume clonidine 0.1 mg 3 times daily as patient trending towards hypotension today. Normal cortisol level. Orthopedic service consulted, recommend continuing splint for now will likely plan for cast on Monday.No surgical intervention indicated for now. PDMP PDMP Reviewed: Not Reviewed Attestations Medical Necessity Statement*: Needs further control of blood pressure, titrating antihypertensives. Coding Level of Care Code Acute Code for [facility] Fwd Diagnoses Distal radius fracture, left S52.502A Facial fracture S02.92XA Fall W19.XXXA Encounter type: initial encounter Accelerated hypertension I10 ESRD (end stage renal disease) N18.6 Hypertensive urgency I16.0 Hypertensive encephalopathy I67.4 Anemia D64.9 Orbital floor fracture S02.30XA Pelvic fracture S32.9XXA
[2025-07-12] MEDS: ciprofloxacin 0.3% Op Soln 2.5 mL Btl 1 DROP EYE-RIGHT (22:16)
[2025-07-12] MEDS: labetalol 5 mg/mL SDV 20mL 10 MG IVP (23:04)
[2025-07-13] VITALS (72 sets, daily range): BP systolic 111–220; BP diastolic 63–148; PULSE 67–81; RESP 2–24; TEMP 37–37.3; O2SAT 95–100
[2025-07-13] MEDS: hyDRALAzine 20 mg/mL INJ 1 mL 10 MG IVP ×4 (00:33→08:47)
[2025-07-13] MEDS: LOSARTAN 25 MG TABLET 50 MG PO (02:46)
--- NOTE | 2025-07-13 03:52 | P.EN_ITS ---
Event Note Event Note: Uncontrolled high blood pressure: -Patient is ESRD and dialysis dependent, having uncontrolled hypertension that could be related to the stiffness of arteries/arterioles from the end-stage renal disease and other comorbidities. The patient was completely asymptomatic with her blood pressure readings before reaching to 190s and around 200 systolic -Patient medication reconciled and start ed on clonidine 0.2 mg patch per week that she was on. - Increase the dose of losartan to 100 m g - Hydralazine IV as needed to continue - The patient is allergic to nifedipine, however other calcium channel micki has not been mentioned in the allergy therefore is as the patient is in the hospital later to consider possible other CCB's for her blood pressure control - Can consider switching to labetalol fr om carvedilol? However nephrology input can further guide accordingly - Currently asymptomatic, continue to mo nitor for any symptoms - An element of high blood pressure coul d be from tacrolimus as well however that is the patient baseline medication to continue.
[2025-07-13] MEDS: NON-FORMULARY MEDICATION (Mycophenolate Sodium 180 mg tablet,delayed release (DR/EC)) 180 EACH PO ×4 (04:05→22:45)
[2025-07-13] MEDS: ciprofloxacin 0.3% Op Soln 2.5 mL Btl 1 DROP EYE-RIGHT ×4 (04:09→22:44)
[2025-07-13 04:23] LABS: Hematocrit 27.3 % (36-47); Hemoglobin 8.60 g/dL (11.27-16.99); Mean Corpuscular HGB Conc 31.5 g/dL (30-55); Mean Corpuscular Hemoglobin 32.3 pg (27-33); Mean Corpuscular Volume 102.6 fl (85-98); Nucleated Red Blood Cells % 0 %; Platelet Count 252 10^3/cmm (157-399); Red Blood Count 2.66 10^6/uL (3.85-5.65); White Blood Count 9.38 10^3/uL (3.29-11.43)
[2025-07-13 05:00] LABS: Alanine Aminotransferase 15 U/L (0-33); Albumin Level 2.8 g/dL (3.5-5.2); Alkaline Phosphatase 72 U/L (35-105); Anion Gap 16.7 (5-19); Aspartate Amino Transferase 16 U/L (0-32); Blood Urea Nitrogen 27 mg/dL (8-23); Calcium 7.8 mg/dL (8.5-10.5); Carbon Dioxide 23 mmol/L (22-29); Chloride 98 mmol/L (98-107); Globulin 2.2 g/dL (1.3-4.6); Glucose 91 mg/dL (65-115); Osmolality Calculated 281 mOsm/kg (285-295); Potassium 4.7 mmol/L (3.5-5.1); Sodium 133 mmol/L (136-145); Total Protein 5.0 g/dL (6.6-8.7)
[2025-07-13 05:01] LABS: Creatinine Clr Calc Pharmacy 12.3676
[2025-07-13] MEDS: labetalol 5 mg/mL SDV 20mL 10 MG IVP (07:32)
--- NOTE | 2025-07-13 07:47 | PC.NURSE ---
labetolol given for hyperstion ,monitor blood prssure
[2025-07-13] MEDS: morphine 4 mg/mL SDV 1 mL IVP (08:48)
[2025-07-13] MEDS: fixodent 39 gm Tube 1 APPLIC DENTAL (08:51)
--- NOTE | 2025-07-13 08:51 | PC.NURSE ---
morphine and hydrolyzing given blood pressure remains elevated
[2025-07-13 12:43] LABS: Coronavirus 229E,HKU1,NL63,OC4 Not Detected (NOT DETECT); Parainfluenza Virus Type 1 Not Detected (NOT DETECT); Parainfluenza Virus Type 2 Not Detected (NOT DETECT); Parainfluenza Virus Type 3 Not Detected (NOT DETECT); Parainfluenza Virus Type 4 Not Detected (NOT DETECT); SARS-COV-2 Not Detected (NOT DETECT)
--- NOTE | 2025-07-13 12:44 | P.PN_ITS ---
Subjective 2 Subjective: BP elevated , meds adjusted Medications: Reviewed: Yes Vitals/I&O/Wt Last Vital Signs Temp 98.6 F 07/13/25 06:00 Pulse 74 07/13/25 10:15 Resp 13 07/13/25 10:15 BP 201/96 07/13/25 10:15 Pulse Ox 99 07/13/25 10:15 O2 Del Method Nasal Cannula 07/11/25 18:00 O2 Flow Rate 2 07/11/25 18:00 07/12/25 07/13/25 07/13/25 22:59 06:59 14:59 Intake Total 250 / 750 0 / 750 Balance 250 / 750 0 / 750 Weight last 48 hrs Weight 54.976 kg Weight 54.1 kg Physical Exam 2 Narrative: , no distress on 2L NC nO JVD S1S2 RRR Lungs - clear per report abd soft , on tender no edema Data 07/13/25 03:27 07/13/25 03:27 A&P Assessment and plan 1. ESRD (end stage renal disease): 1. ESRD :HD per MWF schedule ,UF of 3-4 litres as tolerated 2.Hypertensive urgency -off cardene gtt , adjusted meds 3.s/p Fall and facial fracture 4. Anemia , s/p epogen 5. s/p failed renal transplant - continue immunosupressants pt evaulated using audiovisual cart. Time spent 40 min PDMP PDMP Reviewed: Not Reviewed Attestations 2 Medical Necessity Statement*: per [facility] Coding Level of Care Code Acute Code for Chg Fwd Diagnoses ESRD (end stage renal disease) N18.6
[2025-07-13] MEDS: HYDROcodone-acetaminophen 5-325 mg Tablet 1 TAB PO (12:46)
[2025-07-13] MEDS: nicardipine 20 MG/200 ML PREMIX 50 MG IV (12:47)
--- NOTE | 2025-07-13 13:15 | PC.NURSE ---
doctor here aware of hypertension unable to get under control , cardene gtt started and pain medication given very quiet today and not wanting to eat for either meal. visitor here prior and did not talk to him right eye remains swollen with drainage noted
--- NOTE | 2025-07-13 13:51 | PC.NURSE ---
weaned cardene gtt lower as blood pressure continues to lower
--- NOTE | 2025-07-13 17:11 | P.PN_ITS ---
Subjective 2 Subjective: Patient complains of pain over her face today at the site of fractures. Noted to be hypertensive with blood pressure 212/110 mmHg. Losartan was increased this morning to 100 mg p.o. daily. Clonidine patch was also started. Received doxazosin 4 mg and Imdur 60 mg ; needed transient initiation of Cardene drip following which this afternoon blood pressure is much better at 129/67. Medications: Reviewed: Yes Vitals/I&O/Wt Last Vital Signs Temp 98.6 F 07/13/25 06:00 Pulse 77 07/13/25 16:00 Resp 10 L 07/13/25 16:00 BP 129/67 07/13/25 16:00 Pulse Ox 98 07/13/25 15:05 O2 Del Method Nasal Cannula 07/11/25 18:00 O2 Flow Rate 2 07/11/25 18:00 07/13/25 07/13/25 07/13/25 06:59 14:59 22:59 Intake Total 0 / 750 48.500 / 48.500 Balance 0 / 750 48.500 / 48.500 Weight last 48 hrs Weight 54.976 kg Physical Exam 2 Narrative: General: No acute distress, AO x3 HEENT: PERRLA, pupils bilaterally equal and reactive, pallors not present Chest: Normal vesicular breath sounds, no added sounds, equal good air entry bilaterally CVS: S1-S2 regular, no murmurs, no tachycardia, no gallops, no rubs Abdomen: Soft, nontender, no organomegaly, bowel sounds present Neuro: No focal deficits, no facial deformity, AO x3, power 5/5 in all limbs Data 07/13/25 03:27 07/13/25 03:27 A&P Assessment and plan 1. Distal radius fracture, left: 2. Facial fracture: 3. Fall: 4. Accelerated hypertension: 5. ESRD (end stage renal disease): 6. Hypertensive urgency: 7. Hypertensive encephalopathy: 8. Anemia: 9. Orbital floor fracture: 10. Pelvic fracture: Plan: #1 Hypertensive urgency with encephalopathy - Patient is with hypertensive urgency today with yet another encephalopathy associated - This is not new for the patient patient usually gets confused when the blood pressure gets high the attending physician tells me in the ED - Initial presenting blood pressure was 240/110 and patient was confused - Patient received labetalol 10 mg IV and then another hydralazine 20 mg IV systolic blood pressure had not gone below 200 - Cardene was initiated for ICU admission and care - Upon my evaluating the patient patient was beginning to be coherent and doing okay pretty much alert awake oriented x 3 systolic blood pressure was 200/100 at the time post ED care under Dr. Cui #2 Facial bone fracture yesterday status post mechanical fall - Patient already was seen in the ED yesterday and had been referred to ENT outpatient - Patient need to follow-up with ENT after this hospitalization #3 Left wrist pain - X-ray obtained and was significant for left wrist fracture - Site splinted - Patient to follow-up with orthopedics outpatient - Continue pain management #4 End-stage renal disease requiring chronic hemodialysis patient fell awaited kidney transplant - Nephrology had been consulted for chronic hemodialysis - Patient had a partial hemodialysis yesterday for 1 reason at the other not a full course - Nephrology had been called through telemetry nephrology with no callback - I am placing order under Dr. Murillo who might not be 1 on-call at this time we are still waiting for telemetry nephrology to return call #5 GI and DVT prophylaxis in place 07/11/25: 64 F with PMH CKD s/p failed transplant currently on MMF, tacrolimus and po prednisone 5mg daily presenting with h/o recurrent falls. She states that she has episodes of hypotension at home with BP as low as 80/40s which leads to dizziness and falls. She comes in with a fall at home wherein she fell over step at home. This has resulted in several fractures including pelvic fracture, left acetabular fracture, left radial fracture with angulation, right orbital blowout fracture .Patient had initially presented to the ER with falls on 07/09 and was found to have increased IOP in the 30s for which she underwent urgent lateral canthotomy in the ER on 07/[address] Mike. Her case was discussed with ENT at [facility] and it was opined that patient should follow up within 7 days. She returned to the ER On 07/10 where she was found to have additional fractures as noted above and admitted in view of hypertensive urgency. Currently BP is better controlled. Cardene drip turned off this morning. Start po carvedilol at 12.5 mg BID (home dose) and hydralazine 25mg TID, lowered from 100mg TID as she takes at home. Suspect patient may be having orthostatic BP drop at home. Check Cortisol level given she is on chronic steroids, check for adrenal insufficiency. She will need orthopedic consult during her hospital stay. Following orthopedic assessment, if no surgical intervention is recommended will need PT/OT. D/c heparin s/c given extensive hematoma over face and subconjunctival bleeding. resume tacrolimus and MMF and oral prednisone. Patient is extremely frail and deconditioned, unsafe to be discharged home alone. Will need appropriate disposition planning. July 12, 2025 Increase hydralazine to 100 mg 3 times daily. Resume clonidine 0.1 mg 3 times daily as patient trending towards hypotension today. Normal cortisol level. Orthopedic service consulted, recommend continuing splint for now will likely plan for cast on Monday.No surgical intervention indicated for now. July 13, 2025 Patient was hypertensive through the night and this morning, needed reinitiation of Cardene drip this afternoon which was able to be titrated off by 3 PM. Hydralazine has been increased to 100 mg 3 times daily. Clonidine resumed yesterday at 0.1 mg 3 times daily. Losartan increased from 50 mg p.o. daily to 100 mg p.o. daily. Received doxazosin 4 mg and Imdur 60 mg this afternoon. Following these interventions her blood pressure is currently improved at 129/67. Will add Imdur 60 mg daily to her regimen. Of note Imdur is listed as an allergy on her chart, however on asking the patient specifically, she states that Imdur led to a blood pressure drop which she thought was an allergy. It has been removed from the allergy list today. She reports hives to nifedipine therefore this is not being trialed. Potentially if needed Imdur dose can be increased versus doxazosin added based on further blood pressure trend. Pain over face is inadequately controlled related to her recent fractures. Change morphine to Dilaudid. Continue as needed hydrocodone APAP. Her right eye which had recently received canthotomy after the blowout fracture and increased IOP has discharge over the eyelids. Conjunctival congestion noted. Added ciprofloxacin eyedrops. Will consult ophthalmology once available on Monday. Appreciate orthopedic assessment. Plan placement of cast over left radius likely tomorrow to enable patient to use platform walker at rehab. She will remain toe-touch weightbearing of pelvic and acetabular fracture. Dispo: Discharge to SNF when ready DVT ppx: SCd, no a/c due to facial hematoma PDMP PDMP Reviewed: Not Reviewed Attestations 2 Medical Necessity Statement*: HTN management, needing cardene drip this afternoon, disposition planning Coding Level of Care Code Acute Code for Chg Fwd Diagnoses Distal radius fracture, left S52.502A Facial fracture S02.92XA Fall W19.XXXA Encounter type: initial encounter Accelerated hypertension I10 ESRD (end stage renal disease) N18.6 Hypertensive urgency I16.0 Hypertensive encephalopathy I67.4 Anemia D64.9 Orbital floor fracture S02.30XA Pelvic fracture S32.9XXA
--- NOTE | 2025-07-13 17:30 | PC.NURSE ---
linen change done incontinent urine bobby care now more awake and talking drank soda but continue to not eat, related that pain is much better cardene gtt off
--- NOTE | 2025-07-13 21:02 | PC.NURSE ---
Pt blood pressure 119/72, discussed PM bp meds with physician. Ordered to hold at this time.
--- NOTE | 2025-07-13 21:30 | P.PN_ITS ---
Subjective 2 Subjective: Patient seen and examined this evening. Now has platform walker set up for PT/OT. Planning to transition to cast tomorrow. No new complaints by patient at this time. Patient resting in ICU. Vitals/I&O/Wt Last Vital Signs Temp 98.6 F 07/15/25 12:00 Pulse 71 07/15/25 14:00 Resp 12 07/15/25 12:30 BP 109/68 07/15/25 12:30 Pulse Ox 95 07/15/25 12:30 O2 Del Method Nasal Cannula 07/11/25 18:00 O2 Flow Rate 2 07/11/25 18:00 Physical Exam 2 Narrative: Examination left upper extremity: Examination left upper extremity sugar-tong splint in place. Patient currently is able to wiggle the fingers brisk cap refill less than 2 seconds. She denies any tenderness to palpation proximally at the shoulder or the elbow sugar-tong splint in good place and positioning. Patient through the splint does have tenderness palpation at the distal radius. Fingertips are warm well-perfused brisk cap refill less than 2 seconds. Compartments soft and compressible. Splint does limit full examination left upper extremity however patient does endorse sensation intact light touch distally. Examination of the left lower extremity: Examination left lower extremity demonstrates patient is able to wiggle the toes plantarflex and dorsiflex ankle she has a negative logroll examination is able to perform Stinchfield's examination but does have pain with resisted hip flexion. She is able to flex and extend at the knee. No tenderness palpation about the left foot and ankle knee and hip mild tenderness to palpation at the anterior groin near the superior pubic rami. No appreciable ischial tuberosity tenderness palpation. Patient does have significant tenderness palpation posteriorly at the left sacral area iliac wing near the SI joint. Patient has a negative pelvic compression test. Secondary survey examination reveals patient does have significant bruising and ecchymosis about the face secondary to her fall. No other complaints and unremarkable findings to to the right upper extremity or the right lower extremity at this time. Data 07/15/25 04:10 07/15/25 04:10 A&P Assessment and plan 1. Distal radius fracture, left: 2. Sacral fracture, closed: 3. Fracture of iliac win. Left acetabular fracture: Plan: Imaging reviewed Patient has left distal radius fracture Maintain sugar-tong splint for left distal radius fracture Will transition to cast on Monday Patient has a left sacral ala and posterior iliac nondisplaced fractures as well as a nondisplaced fracture of the left anterior acetabulum. Plan for toe-touch weightbearing to left lower extremity Nonweightbearing to left lower extremity except for patient may utilize platform walker to mobilize through the forearm on the left upper extremity while patient has splint or cast in place DVT prophylaxis per primary Discussed treatment options with patient she understands and agrees with current plan. All questions answered at this time. Orthopedics will continue to follow and plan to transition her to a left upper extremity short arm cast for left distal radius fracture tomorrow PDMP PDMP Reviewed: Not Reviewed Attestations 2 Medical Necessity Statement*: Per primary internal medicine Coding Level of Care Code Acute Code for [facility] Diagnoses Distal radius fracture, left S52.502A Sacral fracture, closed S32.10XA Fracture of iliac wing S32.309A Left acetabular fracture S32.402A Time Spent (min) 5
[2025-07-14] VITALS (52 sets, daily range): BP systolic 103–182; BP diastolic 41–92; PULSE 64–74; RESP 0–22; TEMP 36.5–37.2; O2SAT 93–99
[2025-07-14 04:33] LABS: Hematocrit 24.3 % (36-47); Hemoglobin 7.70 g/dL (11.27-16.99); Mean Corpuscular HGB Conc 31.7 g/dL (30-55); Mean Corpuscular Hemoglobin 32.1 pg (27-33); Mean Corpuscular Volume 101.3 fl (85-98); Nucleated Red Blood Cells % 0 %; Platelet Count 242 10^3/cmm (157-399); Red Blood Count 2.40 10^6/uL (3.85-5.65); White Blood Count 12.21 10^3/uL (3.29-11.43)
[2025-07-14] MEDS: HYDROcodone-acetaminophen 5-325 mg Tablet 1 TAB PO ×2 (04:51→15:17)
[2025-07-14] MEDS: ciprofloxacin 0.3% Op Soln 2.5 mL Btl 1 DROP EYE-RIGHT ×3 (04:52→16:17)
[2025-07-14] MEDS: NON-FORMULARY MEDICATION (Mycophenolate Sodium 180 mg tablet,delayed release (DR/EC)) 180 EACH PO ×4 (04:52→23:06)
[2025-07-14 05:07] LABS: Alanine Aminotransferase 11 U/L (0-33); Albumin Level 2.8 g/dL (3.5-5.2); Alkaline Phosphatase 145 U/L (35-105); Anion Gap 17.7 (5-19); Aspartate Amino Transferase 14 U/L (0-32); Blood Urea Nitrogen 36 mg/dL (8-23); Calcium 7.7 mg/dL (8.5-10.5); Carbon Dioxide 23 mmol/L (22-29); Chloride 95 mmol/L (98-107); Globulin 2.0 g/dL (1.3-4.6); Glucose 110 mg/dL (65-115); Magnesium 2.0 mg/dL (1.7-2.3); Osmolality Calculated 279 mOsm/kg (285-295); Potassium 5.7 mmol/L (3.5-5.1); Sodium 130 mmol/L (136-145); Total Protein 4.8 g/dL (6.6-8.7)
[2025-07-14 05:08] LABS: Creatinine Clr Calc Pharmacy 11.5403
--- NOTE | 2025-07-14 10:30 | PM.PN ---
Subjective Subjective: no new c/o Medications: Reviewed: Yes Vitals/I&O/Wt Last Vital Signs Temp 97.7 F 07/14/25 08:00 Pulse 72 07/14/25 10:00 Resp 10 L 07/14/25 10:00 BP 136/76 07/14/25 10:00 Pulse Ox 95 07/14/25 10:00 O2 Del Method Nasal Cannula 07/11/25 18:00 O2 Flow Rate 2 07/11/25 18:00 07/13/25 07/14/25 07/14/25 22:59 06:59 14:59 Intake Total 270 / 318.500 120 / 438.500 Balance 270 / 318.500 120 / 438.500 Weight last 48 hrs Weight 52.163 kg Weight 54.976 kg Physical Exam Narrative: , no distress on 2L NC nO JVD S1S2 RRR Lungs - clear per report abd soft , on tender no edema Data 07/14/25 03:39 07/14/25 03:39 A&P Assessment and plan 1. ESRD (end stage renal disease): 1. ESRD :HD per MWF schedule ,UF of 3-4 litres as tolerated 2.Hypertensive urgency -off cardene gtt , adjusting meds 3.s/p Fall and facial fracture 4. Anemia , s/p epogen 5. s/p failed renal transplant - continue immunosupressants pt evaulated using audiovisual cart. Time spent 40 min PDMP PDMP Reviewed: Not Reviewed Attestations Medical Necessity Statement*: per [facility] Coding Level of Care Code Acute Code for Chg Fwd Diagnoses ESRD (end stage renal disease) N18.6
--- NOTE | 2025-07-14 14:35 | PC.NURSE ---
Patient had late breakfast due to dialysis treatment, when lunch trays came patient refused meal and said she was not hungry.
--- NOTE | 2025-07-14 16:18 | PM.PN ---
Subjective Subjective: BP doing better after dialysis. Vitals/I&O/Wt Last Vital Signs Temp 98.6 F 07/14/25 12:00 Pulse 69 07/14/25 14:00 Resp 15 07/14/25 14:00 BP 115/71 07/14/25 14:00 Pulse Ox 94 07/14/25 13:30 O2 Del Method Nasal Cannula 07/11/25 18:00 O2 Flow Rate 2 07/11/25 18:00 07/14/25 07/14/25 07/14/25 06:59 14:59 22:59 Intake Total 120 / 438.500 Balance 120 / 438.500 Weight last 48 hrs Weight 52.163 kg Weight 54.976 kg Physical Exam Const: COMMON NORMALS: no acute distress, average body habitus and patient oriented x3 HENMT: COMMON NORMALS: atraumatic HEAD & SCALP: atraumatic Eye: OTHER: right eye with conjuntival swelling Neck/C-Spine: COMMON NORMALS: no JVD Resp: COMMON NORMALS: normal respiratory effort, No retractions and clear to auscultation bilaterally AUSCULTATION: clear to auscultation bilaterally Cardio: COMMON NORMALS: no JVD, regular rate, regular rhythm, S1 normal heart sound present, S2 normal heart sound present, No gallops present (Cardio), No murmurs present (Cardio) and No rub (Cardio) RATE: regular rate RHYTHM: regular rhythm HEART SOUNDS: S1 normal heart sound present and S2 normal heart sound present GI: COMMON NORMALS: Soft to palpation, non-tender and no masses PALPATION: Yes Soft to palpation Neuro: COMMON NORMALS: patient oriented x3 Data 07/14/25 03:39 07/14/25 03:39 A&P Assessment and plan 1. Pelvic fracture: 2. Orbital floor fracture: 3. Anemia: 4. Hypertensive encephalopathy: 5. Hypertensive urgency: 6. Distal radius fracture, left: 7. Increased intraocular pressure: 8. Facial fracture: Plan: 64 F with PMH CKD s/p failed transplant currently on MMF, tacrolimus and po prednisone 5mg daily presenting with h/o recurrent falls. She states that she has episodes of hypotension at home with BP as low as 80/40s which leads to dizziness and falls. Hypertensive urgency with encephalopathy - hypertensive urgency improving - hypertensive encephalopathy also improving. - the patient patient often gets confused when the blood pressure gets high - Initial presenting blood pressure was 240/110 and patient was confused - Patient received labetalol 10 mg IV and then another hydralazine 20 mg IV systolic blood pressure had not gone below 200 - Cardene was initiated for ICU admission and care, now off cardene - carotid dopplers without stnosis. Facial bone fracture yesterday status post mechanical fall - Patient already was seen in the ED yesterday and had been referred to ENT outpatient - Patient need to follow-up with ENT after this hospitalization Left wrist pain - X-ray obtained and was significant for left wrist fracture - Site splinted - Patient to follow-up with orthopedics outpatient - Continue pain management Multiple fractures - pelvic fracture, left acetabular fracture, left radial fracture with angulation, right orbital blowout fracture Conjunctival congestion - Patient had initially presented to the ER with falls on 07/09 and was found to have increased IOP in the 30s for which she underwent urgent lateral canthotomy in the ER on 07/[address] Mike. - discussed with ophthalmology, change cipro drops to erythromycin ointment - can see in ophthalmology clinic about 1-2 weeks after discharge. End-stage renal disease requiring chronic hemodialysis patient fell awaited kidney transplant - [facility] schedule - Nephrology had been consulted for chronic hemodialysis - resume tacrolimus and MMF and oral prednisone. - dialysis with 2 1/2 liters off, BP greatly improved PPx: - SCDs only 2/2 facial hematoma Disposition - SNF with stable - downgrade out of ICU PDMP PDMP Reviewed: Not Reviewed Attestations Medical Necessity Statement*: Ongoing inpatient for HTN urgency with encephalopathy, multiple fractures. Time Spent in Patient Care: 16 - 35 minutes (>than 50% of time spent in counselling and/or direct pt care on unit). Coding Level of Care Code Acute Code for Chg Fwd Diagnoses Pelvic fracture S32.9XXA Orbital floor fracture S02.30XA Anemia D64.9 Hypertensive encephalopathy I67.4 Hypertensive urgency I16.0 Distal radius fracture, left S52.502A Increased intraocular pressure H40.059 Facial fracture S02.92XA
--- NOTE | 2025-07-14 17:28 | P.PN_ITS ---
Subjective 2 Subjective: Patient seen and examined today sugar-tong splint of the left upper extremity taken down and cast applied to the left upper extremity. Vitals/I&O/Wt Last Vital Signs Temp 98.6 F 07/14/25 12:00 Pulse 69 07/14/25 14:00 Resp 15 07/14/25 14:00 BP 120/56 07/14/25 16:16 Pulse Ox 94 07/14/25 13:30 O2 Del Method Nasal Cannula 07/11/25 18:00 O2 Flow Rate 2 07/11/25 18:00 07/14/25 07/14/25 07/14/25 06:59 14:59 22:59 Intake Total 120 / 438.500 Balance 120 / 438.500 Weight last 48 hrs Weight 115 lb Weight 121 lb 3.204 oz Physical Exam 2 Narrative: Examination left upper extremity: Examination left upper extremity sugar-tong splint sewn in place. Patient currently is able to wiggle the fingers brisk cap refill less than 2 seconds. She denies any tenderness to palpation proximally at the shoulder or the elbow sugar-tong splint in good place and positioning. Patient through the splint does have tenderness palpation at the distal radius. Fingertips are warm well- perfused brisk cap refill less than 2 seconds. Compartments soft and compressible. Splint does limit full examination left upper extremity however patient does endorse sensation intact light touch distally. Splint was taken down today and no open wounds, patient does have bruising ecchymosis and swelling at the distal radius no significant clinical deformity appreciated. Examination of the left lower extremity: Examination left lower extremity demonstrates patient is able to wiggle the toes plantarflex and dorsiflex ankle she has a negative logroll examination is able to perform Stinchfield's examination but does have pain with resisted hip flexion. She is able to flex and extend at the knee. No tenderness palpation about the left foot and ankle knee and hip mild tenderness to palpation at the anterior groin near the superior pubic rami. No appreciable ischial tuberosity tenderness palpation. Patient does have significant tenderness palpation posteriorly at the left sacral area iliac wing near the SI joint. Patient has a negative pelvic compression test. Secondary survey examination reveals patient does have significant bruising and ecchymosis about the face secondary to her fall. No other complaints and unremarkable findings to to the right upper extremity or the right lower extremity at this time. Data 07/15/25 04:10 07/15/25 04:10 A&P Assessment and plan 1. Distal radius fracture, left: 2. Sacral fracture, closed: 3. Fracture of iliac win. Left acetabular fracture: Plan: Imaging reviewed Patient has left distal radius fracture Maintain sugar-tong splint for left distal radius fracture?removed today - Patient had left short arm fiberglass cast applied to the left upper extremity Patient has a left sacral ala and posterior iliac nondisplaced fractures as well as a nondisplaced fracture of the left anterior acetabulum. Plan for toe-touch weightbearing to left lower extremity Nonweightbearing to left upper extremity except for patient may utilize platform walker to mobilize through the forearm on the left upper extremity while patient has splint or cast in place DVT prophylaxis per primary Discussed treatment options with patient she understands and agrees with current plan. All questions answered at this time. Patient stable from orthopedic standpoint orthopedic surgery team will sign off patient at this time follow peripherally. If there is any question pertaining patient's care feel free to contact orthopedics on-call. Plan for patient to follow-up in 2 weeks upon discharge PDMP PDMP Reviewed: Not Reviewed Attestations 2 Medical Necessity Statement*: Ongoing care for multiple fractures to the left pelvis and left distal radius was transition to a cast today, per primary Coding Level of Care Code Acute Code for [facility] Fwd Diagnoses Distal radius fracture, left S52.502A Sacral fracture, closed S32.10XA Fracture of iliac wing S32.309A Left acetabular fracture S32.402A Time Spent (min) 25
[2025-07-14] MEDS: erythromycin Op Oint 1 gm 1 APPLIC EYE-RIGHT ×2 (17:48→23:06)
[2025-07-14] MEDS: HYDROmorphone 0.5 MG/0.5 ML INJ 1 MG IVP (20:16)
[2025-07-15] VITALS (29 sets, daily range): BP systolic 109–173; BP diastolic 58–91; PULSE 65–71; RESP 2–17; TEMP 36.6–37.1; O2SAT 93–96
[2025-07-15 04:21] LABS: Hematocrit 25.3 % (36-47); Hemoglobin 7.90 g/dL (11.27-16.99); Mean Corpuscular HGB Conc 31.2 g/dL (30-55); Mean Corpuscular Hemoglobin 31.2 pg (27-33); Mean Corpuscular Volume 100.0 fl (85-98); Nucleated Red Blood Cells % 0 %; Platelet Count 280 10^3/cmm (157-399); Red Blood Count 2.53 10^6/uL (3.85-5.65); White Blood Count 10.16 10^3/uL (3.29-11.43)
[2025-07-15 04:45] LABS: Anion Gap 15.8 (5-19); Blood Urea Nitrogen 27 mg/dL (8-23); Calcium 7.9 mg/dL (8.5-10.5); Carbon Dioxide 25 mmol/L (22-29); Chloride 94 mmol/L (98-107); Creatinine Clr Calc Pharmacy 13.2264; Glucose 111 mg/dL (65-115); Osmolality Calculated 276 mOsm/kg (285-295); Potassium 4.8 mmol/L (3.5-5.1); Sodium 130 mmol/L (136-145)
[2025-07-15] MEDS: NON-FORMULARY MEDICATION (Mycophenolate Sodium 180 mg tablet,delayed release (DR/EC)) 180 EACH PO ×2 (05:19→10:51)
[2025-07-15] MEDS: erythromycin Op Oint 1 gm 1 APPLIC EYE-RIGHT ×2 (05:19→10:52)
[2025-07-15] MEDS: HYDROcodone-acetaminophen 5-325 mg Tablet 1 TAB PO ×3 (05:45→13:54)
--- NOTE | 2025-07-15 11:14 | PM.PN ---
Subjective Subjective: no new c/o Medications: Reviewed: Yes Vitals/I&O/Wt Last Vital Signs Temp 98.8 F 07/15/25 08:00 Pulse 68 07/15/25 08:30 Resp 13 07/15/25 08:30 BP 173/90 07/15/25 08:30 Pulse Ox 95 07/15/25 08:30 O2 Del Method Nasal Cannula 07/11/25 18:00 O2 Flow Rate 2 07/11/25 18:00 07/14/25 07/15/25 07/15/25 22:59 06:59 14:59 Intake Total 360 / 860 240 / 1100 200 / 200 Balance 360 / -2142 240 / -1902 200 / 200 Weight last 48 hrs Weight 51.256 kg Weight 52.1 kg Weight 52.163 kg Physical Exam Narrative: , no distress on 2L NC nO JVD S1S2 RRR Lungs - clear per report abd soft , on tender no edema Data 07/15/25 04:10 07/15/25 04:10 A&P Assessment and plan 1. ESRD (end stage renal disease): 1. ESRD :HD per [facility] schedule HD tomorrow 2.Hypertensive urgency -off cardene gtt , adjusting meds 3.s/p Fall and facial fracture 4. Anemia , s/p epogen 5. s/p failed renal transplant - continue immunosupressants pt evaulated using audiovisual cart. Time spent 40 min PDMP PDMP Reviewed: Not Reviewed Attestations Medical Necessity Statement*: per [facility] Coding Level of Care Code Acute Code for Chg Fwd Diagnoses ESRD (end stage renal disease) N18.6
--- NOTE | 2025-07-15 11:49 | PM.DCS ---
Discharge Providers Date of Admission: 07/10/25 16:27 Date of Discharge: July 15, 2025 Attending Provider at Admission: Jordyn Sosa MD Attending Provider at Discharge: Mayank Booker MD Consults: Orthopedics, nephrology Primary Care Provider: Ale Olivier MD Diagnoses at Discharge Discharge Diagnosis 1. ESRD (end stage renal disease): Reason for Visit Reason for Visit: general weakness - left hip pain Brief History: 64 F with PMH CKD s/p failed transplant currently on MMF, tacrolimus and po prednisone 5mg daily presenting with h/o recurrent falls. She states that she has episodes of hypotension at home with BP as low as 80/40s which leads to dizziness and falls. Hospital Course Hospital Course Hypertensive urgency with encephalopathy - hypertensive urgency improving - hypertensive encephalopathy also improving. - the patient often gets confused when the blood pressure gets high - Initial presenting blood pressure was 240/110 and patient was confused - Patient received labetalol 10 mg IV and then another hydralazine 20 mg IV systolic blood pressure had not gone below 200 - Cardene was initiated for ICU admission and care, now off cardene - carotid dopplers without stenosis. - maintain fluid balance with consistent dialysis for improved blood pressures. Facial bone fracture status post mechanical fall - Patient already was seen in the ED prior to admission and referred to ENT outpatient - Follow-up with ENT after discharge. Left wrist pain - X-ray obtained and was significant for left wrist fracture - ortho consulted, now with cast - Patient to follow-up with orthopedics outpatient Multiple fractures - pelvic fracture, left acetabular fracture, left radial fracture with angulation, right orbital blowout fracture right conjunctival congestion - Patient had initially presented to the ER with falls on 07/09 and was found to have increased IOP in the 30s for which she underwent urgent lateral canthotomy in the ER on 07/[address] Mike. - discussed with ophthalmology, change cipro drops to erythromycin ointment - can see in ophthalmology clinic about 1-2 weeks after discharge. End-stage renal disease requiring chronic hemodialysis patient fell awaited kidney transplant - MWF schedule - Nephrology had been consulted for chronic hemodialysis - resume tacrolimus and MMF and oral prednisone. - dialysis with 2 1/2 liters off, BP greatly improved PPx: - SCDs only 2/2 facial hematoma Disposition - Patient stable for discharge to SNF today. Physical Exam Narrative: Physical Exam Const: no acute distress, average body habi tus and patient or iented x3 HENMT: right eye with orb ital ecchymosis. Eye: right eye with con juntival swelling Neck/C-Spine: no JVD Resp: normal respiratory effort, No retrac tions and clear to auscultation bila terally Cardio: no JVD, regular ra te, regular rhythm , S1/S2 normal, No gallops, No murmu rs, and No rubs GI: Soft to palpation, non-tender and no masses PALPATION Neuro: patient oriented x 3 Discharge Data Studies Completed and Pending Completed Studies During Hospitalization Category Date Time Status CT abdomen pelvis w con* [id number] Stat Cat Scan 07/10/25 16:[address] cervical spin wo con* [id number] Stat Cat Scan 07/10/25 14:[address] facial bones wo con* [id number] Stat Cat Scan 07/10/25 14:[address] head wo con* [id number] Stat Cat Scan 07/10/25 14:25 Completed XR chest 1V portable [id number] Stat Exams 07/10/25 16:56 Completed XR hip LT 2-3V wo/w pel* [id number] Stat Exams 07/10/25 14:02 Completed XR wrist LT min 3V* [id number] Stat Exams 07/10/25 16:12 Completed CV carotid duplex BI* [id number] Routine Ultrasound 07/12/25 07:15 Completed Radiology Impressions Hip/Pelvis X-Ray 07/10/25 14:02 IMPRESSION: Mild osteoarthritis with no acute abnormality. Cervical Spine CT 07/10/25 14:25 IMPRESSION: The examination is unchanged compared to the study of the previous day. No acute abnormality is identified. Face CT 07/10/25 14:25 IMPRESSION: Acute fracture of the anterior and posterior wall of right maxillary sinus. Acute fracture of the floor of right orbit. ADDENDUM: 07/10/25 1604 THIS REPORT CONTAINS FINDINGS THAT MAY BE CRITICAL TO PATIENT CARE. CARLITOS Mosqueda has the report and has no more questions at 4:02 PM CDT on 07/10/2025. The findings were acknowledged and understood. Head CT 07/10/25 14:25 IMPRESSION: Stable right facial bone fractures. Stable intracranial contents with no acute abnormality. Wrist X-Ray 07/10/25 16:12 IMPRESSION: Acute fracture of the distal radial metaphyses with the fracture line extending into the distal radial diaphysis. Dorsal angulation of the distal fracture fragment. Abdomen/Pelvis CT 07/10/25 16:13 IMPRESSION: 1. Mildly displaced fractures in the lateral left sacral ala, superomedial left iliac bone, and anterior wall of the left acetabulum. 2. Cholelithiasis with mild wall enhancement and trace pericholecystic fluid. Cholecystitis can not be entirely excluded. 3. Findings of volume overload with pleural effusions, trace ascites, and body wall edema. 4. 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 Mild hydronephrosis in the transplant kidney without visible calculus. COMMENTS: Consistent with the [employer]'s Incidental Findings Committee white paper (J Am Axel Radiol 2018): Any incidental renal lesion less than 1 cm or classified as too small to characterize, or any incidental cystic renal lesion characterized as simple-appearing, is likely benign. No follow-up imaging is recommended for these lesions per consensus recommendations based on imaging criteria. Chest X-Ray 07/10/25 16:56 IMPRESSION: 1. Cardiomegaly with mild pulmonary edema. 2. Small to moderate left pleural effusion. Carotid Doppler Study 07/12/25 07:15 IMPRESSION: No carotid arterial stenosis. REFERENCES: SRU CRITERIA. The degree of internal carotid artery stenosis is based on criteria defined by the Society of Radiologists in Ultrasound (SRU). Normal is no stenosis. Mild is less than 50% stenosis. Moderate is 50-69% stenosis. Severe is greater than 69% stenosis to near occlusion. Near occlusion is a markedly narrowed lumen. Total occlusion is no detectable patent lumen. Leah Akers, et al. Carotid Artery Stenosis: Wayne-Scale and Doppler US Diagnosis-Society of Radiologists in Ultrasound Consensus Conference. Radiology 2003; 229:340-346. Laboratory Results WBC 10.16 10^3/uL (3.29-11.43) 07/15/25 04:10 Corrected WBC Cancelled 07/10/25 14:20 RBC 2.53 10^6/uL (3.85-5.65) L 07/15/25 04:10 Hgb 7.90 g/dL (11.27-16.99) L 07/15/25 04:10 Hct 25.3 % (36-47) L 07/15/25 04:10 MCV 100.0 fl (85-98) H 07/15/25 04:10 MCH 31.2 pg (27-33) 07/15/25 04:10 MCHC 31.2 g/dL (30-55) 07/15/25 04:10 RDW 16.3 % (12.1-15.1) H 07/15/25 04:10 Plt Count 280 10^3/cmm (157-399) 07/15/25 04:10 MPV 10.4 fL (7.4-10.4) 07/15/25 04:10 Gran % Cancelled 07/10/25 14:20 Neut % (Auto) 79.5 % 07/15/25 04:10 Lymph % (Auto) 7.7 % 07/15/25 04:10 Mcleod % (Auto) 10.2 % 07/15/25 04:10 Eos % (Auto) 1.7 % 07/15/25 04:10 Baso % (Auto) 0.2 % 07/15/25 04:10 Neut # (Auto) 8.08 10^3/uL (1.8-7.7) H 07/15/25 04:10 Lymph # (Auto) 0.8 10^3/uL (0.8-4.8) 07/15/25 04:10 Mcleod # (Auto) 1.0 10^3/uL (0.2-0.9) H 07/15/25 04:10 Eos # (Auto) 0.2 10^3/uL (0.0-0.8) 07/15/25 04:10 Baso # (Auto) 0.0 10^3/uL (0.0-0.1) 07/15/25 04:10 Absolute Gran (auto) Cancelled 07/10/25 14:20 Nucleated RBC % (auto) 0 % 07/15/25 04:10 Nucleated RBCs # 0.0 /100WBC 07/15/25 04:10 Sodium 130 mmol/L (136-145) L 07/15/25 04:10 Potassium 4.8 mmol/L (3.5-5.1) 07/15/25 04:10 Chloride 94 mmol/L (98-107) L 07/15/25 04:10 Carbon Dioxide 25 mmol/L (22-29) 07/15/25 04:10 Anion Gap 15.8 (5-19) 07/15/25 04:10 BUN 27 mg/dL (8-23) H 07/15/25 04:10 Creatinine 3.5 mg/dL (0.5-0.9) H 07/15/25 04:10 GFR Calculation 13.2 mL/min (90-130) L 07/15/25 04:10 Glucose 111 mg/dL (65-115) 07/15/25 04:10 POC Glucose 140 mg/dL (70-110) H 07/11/25 17:06 Calculated Osmolality 276 mOsm/kg (285-295) L 07/15/25 04:10 Calcium 7.9 mg/dL (8.5-10.5) L 07/15/25 04:10 Phosphorus 5.0 mg/dL (2.5-4.5) H 07/14/25 03:39 Magnesium 2.0 mg/dL (1.7-2.3) 07/14/25 03:39 Total Bilirubin 0.2 mg/dL (0.15-1.2) 07/14/25 03:39 AST 14 U/L (0-32) 07/14/25 03:39 ALT 11 U/L (0-33) 07/14/25 03:39 Alkaline Phosphatase 145 U/L (35-105) H 07/14/25 03:39 Total Protein 4.8 g/dL (6.6-8.7) L 07/14/25 03:39 Albumin 2.8 g/dL (3.5-5.2) L 07/14/25 03:39 Globulin 2.0 g/dL (1.3-4.6) 07/14/25 03:39 TSH 4.58 uIU/mL (0.27-4.20) H 07/12/25 03:57 Random Cortisol 17.47 ug/dL (2.47-19.5) 07/12/25 03:57 Urine Color Yellow (Yellow) 07/10/25 14:40 Urine Appearance Clear (CLEAR) 07/10/25 14:40 Urine pH 8.5 (5-7) A 07/10/25 14:40 Ur Specific [place] 1.016 (1.005-1.030) 07/10/25 14:40 Urine Protein 3+ (Negative) A 07/10/25 14:40 Urine Glucose (UA) Trace (Normal) H 07/10/25 14:40 Urine Ketones Negative (Negative) 07/10/25 14:40 Urine Blood Negative (Negative) 07/10/25 14:40 Urine Nitrate Negative (Negative) 07/10/25 14:40 Urine Bilirubin Negative (Negative) 07/10/25 14:40 Urine Urobilinogen 0.2 mg/dL (Negative) 07/10/25 14:40 Ur Leukocyte Esterase Negative (Negative) 07/10/25 14:40 Urine RBC 0-2 /hpf (0-2) 07/10/25 14:40 Urine WBC 6-10 /hpf (0-5) 07/10/25 14:40 Ur Squamous Epith Cells 0-4 /hpf (0-5) H 07/10/25 14:40 Amorphous Sediment Not Reportable 07/10/25 14:40 Urine Bacteria Trace /hpf (NONE) 07/10/25 14:40 Adenovirus (PCR) Not detected (NOT DETECT) 07/13/25 10:40 C. pneumoniae DNA (PCR) Not detected (NOT DETECT) 07/13/25 10:40 Coronavirus 229E (PCR) Not detected (NOT DETECT) 07/13/25 10:40 Hep Bs Antigen Non-reactive (Nonreactive) 07/10/25 14:20 Hep Bs Antibody < 3.5 (11.5-1000) L 07/10/25 14:20 Human Metapneumovir PCR Not detected (NOT DETECT) 07/13/25 10:40 Influenza A (H1) PCR Not detected (NOT DETECT) 07/13/25 10:40 Influ A (H1/09) PCR Not detected (NOT DETECT) 07/13/25 10:40 Influenza A (H3) PCR Not detected (NOT DETECT) 07/13/25 10:40 Influenza Type A (PCR) Not detected (NOT DETECT) 07/13/25 10:40 Influenza Type B (PCR) Not detected (NOT DETECT) 07/13/25 10:40 M. pneumoniae (PCR) Not detected (NOT DETECT) 07/13/25 10:40 Parainfluenza 1 (PCR) Not detected (NOT DETECT) 07/13/25 10:40 Parainfluenza 2 (PCR) Not detected (NOT DETECT) 07/13/25 10:40 Parainfluenza 3 (PCR) Not detected (NOT DETECT) 07/13/25 10:40 Parainfluenza 4 (PCR) Not detected (NOT DETECT) 07/13/25 10:40 RSV Type A (PCR) Not detected (NOT DETECT) 07/13/25 10:40 RSV Type B (PCR) Not detected (NOT DETECT) 07/13/25 10:40 Entero/Rhino (PCR) Not detected (NOT DETECT) 07/13/25 10:40 SARS-CoV-2 (PCR) Not detected (NOT DETECT) 07/13/25 10:40 Vitals Last Vital Signs Temp 98.8 F 07/15/25 08:00 Pulse 68 07/15/25 08:30 Resp 13 07/15/25 08:30 BP 173/90 07/15/25 08:30 Pulse Ox 95 07/15/25 08:30 O2 Del Method Nasal Cannula 07/11/25 18:00 O2 Flow Rate 2 07/11/25 18:00 Discharge Plan Discharge Patient Disposition: Xfer SNF Condition: Stable Prescriptions: New losartan 50 mg Tablet 100 mg PO Q24H Qty: 30 2RF erythromycin 5 mg/gram (0.5 %) Ointment 1 applic eye-right QID Qty: 1 0RF Continued loperamide 2 mg capsule 2 mg PO TID PRN (Reason: Diarrhea) magnesium oxide 400 mg (241.3 mg magnesium) tablet 400 mg PO DAILY ascorbic acid (vitamin C) [Vitamin C] 500 mg Tablet 500 mg PO BID@0700,1730 aspirin 81 mg Tablet,Chewable 81 mg PO DAILY@2100 vitamin E acetate 200 unit Capsule 400 unit PO DAILY@0700 tacrolimus 0.5 mg capsule See Rx Instructions .ROUTE .COMPLEX Rx Instructions: TAKE 3 CAPSULES BY MOUTH EVERY MORNING AND TAKE 3 CAPSULES BY MOUTH EVERY EVENING cholecalciferol (vitamin D3) [Vitamin D3] 25 mcg (1,000 unit) Capsule 25 mcg PO DAILY mycophenolate sodium 180 mg tablet,delayed release (DR/EC) 180 mg PO QID Vitamin Plus Low Iron 27 mg iron- 1 mg tablet 27 tab PO DAILY hydralazine 100 mg tablet 100 mg PO TID Qty: 90 0RF clonidine HCl 0.1 mg Tablet 0.1 mg PO TID Qty: 90 0RF docusate sodium 100 mg Capsule 100 mg PO BID Qty: 60 0RF prednisone 5 mg tablet 5 mg PO DAILY Qty: 30 0RF carvedilol 25 mg tablet 25 mg PO DAILY clonidine 0.2 mg/24 hr patch weekly 1 patch topical Q7D bumetanide 0.5 mg tablet See Rx Instructions .ROUTE .COMPLEX Rx Instructions: TAKE 1 TABLET BY MOUTH DAILY ON NON-DIALYSIS DAYS fluticasone propionate 50 mcg/actuation spray,suspension 1 spray INTRANASAL BID hydrocodone-acetaminophen 5-325 mg tablet 1 tab PO Q6H PRN (Reason: pain (scale score 7-10)) Qty: 14 0RF Discontinued losartan 50 mg tablet 50 mg PO DAILY Discharge Order = DC NOW: Discharge Order (Routine); Ordered 07/15/25 Ordered By: Mayank Booker Referrals: Ale Olivier MD [Primary Care Provider, Family Practice] Discharge Diet: Advance as tolerated Discharge Activity: Increase activity as tolerated Discharge Attestations Time Spent in Discharge Care*: greater than 30 min Specific Discharge Activities: educating patient, educating and/or supporting family/caregiver, discussing with pcp/other providers, discussing with telephonic nurse case manager/social workers/dc planners, documenting/other paperwork and evaluating patient/reviewing data Quality Metrics Clinical Quality Measures [ No reported AMI, CVA or VTE this stay] Coding Level of Care Code Acute Code for Chg Fwd Diagnoses ESRD (end stage renal disease) N18.6
--- NOTE | 2025-07-15 14:35 | PC.NURSE ---
awaiting confirmation from case management to call report to [facility]. [id number]: attempted to call report, SNF refused to take report until there staff member looked through discharge papers
--- NOTE | 2025-07-15 15:07 | PC.NURSE ---
Report called to [facility]. Patient discharged in stable condition, med list sent with patient to facility along with discharge paperwork. all IVs and monitoring equipment removed prior to discharge. All questions about discharge answered before patient left facility. Patient transported via SNF transport.
== END 2025-07-15 15:05 | disposition skilled nursing facility (03) | DRG 304 ==
LOC: ER 14:20 → ER IP 16:27 → ICU 18:25
PROVIDERS: Hospitalist; Student in an Organized Health Care Education/Training Program; Admitting Provider Internal Medicine; Emergency Provider Family Medicine; PCP Family Medicine; Visit Provider Internal Medicine
DX: I16.0 Hypertensive urgency (principal); N18.6 End stage renal disease; S32.402A Unspecified fracture of left acetabulum, initial encounter for closed fracture; S02.85XA Fracture of orbit, unspecified, initial encounter for closed fracture; S52.502A Unspecified fracture of the lower end of left radius, initial encounter for closed fracture; S32.302A Unspecified fracture of left ilium, initial encounter for closed fracture; S32.10XA Unspecified fracture of sacrum, initial encounter for closed fracture; I67.4 Hypertensive encephalopathy; Z94.0 Kidney transplant status; I12.0 Hypertensive chronic kidney disease with stage 5 chronic kidney disease or end stage renal disease; W01.0XXA Fall on same level from slipping, tripping and stumbling without subsequent striking against object, initial encounter; Y92.009 Unspecified place in unspecified non-institutional (private) residence as the place of occurrence of the external cause; Z99.2 Dependence on renal dialysis; F17.200 Nicotine dependence, unspecified, uncomplicated; Z79.82 Long term (current) use of aspirin; D64.9 Anemia, unspecified; I95.9 Hypotension, unspecified; H11.89 Other specified disorders of conjunctiva
CPT/HCPCS: 36415; 36416; 70450; 70486; 71045; 72125; 73110; 73502; 74177; 80048; 80053; 81001; 82533; 82962; 83735; 84100; 84443; 85025; 85610; 86706; 87340; 87486; 87581; 87633; 90935; 93005; 93880; 96365; 96366; 96374; 96375; 97116; 97161; 97167; 97530; 97535; 99285; J0360; J1171; J1644; J2270; J2404; J3490; J7507; J7512; J9999; Q3014; Q5105

== ENCOUNTER 2025-08-03 08:09 | Emergency (ER) | payer OTHER, MEDICAID, SELFPAY ==
[2025-08-03] VITALS (8 sets, daily range): BP systolic 224–245; BP diastolic 114–137; PULSE 94–99; RESP 16; TEMP 37; O2SAT 90–98
--- OUTSIDE RECORDS SUMMARY | 2025-08-03 08:13 | XMS_ITS | Continuity of Care Document ---
Author Organization [facility] Address [address] [place] [address] Care Team Providers Care Operations Chief Name Role Phone Dr. Lauri Logan DO Attending Physician [phone] Medications Medication Frequency Instructions Diagnosis Start Date End Date Last Administered aspirin 81 mg tablet,chewable At Bedtime 1 tab, oral, At Bedtime, give at 9pm 07/15/20 25 07/26/2025 09:09 PM bumetanide 1 mg tablet Once A Day 1 tab, oral, Once A Day, give on NON-DIALYSIS days 07/15/2007/26/2025 09:34 AM carvedilol 25 mg tablet Once A Day 1 tab, oral, Once A Day 07/15/2007/26/2025 09:34 AM cholecalciferol (vitamin D3) 25 mcg (1,000 unit) tablet Once A Day 1 tab, oral, Once A Day 07/15/20 25 07/26/2025 09:34 AM clonidine HCl 0.2 mg tablet Twice A Day 1 tab, oral, Twice A Day, TI for clonidine transdermal 07/15/20 25 07/26/2025 06:39 PM docusate sodium 100 mg tablet Twice A Day 1 tab, oral, Twice A Day 07/15/20 25 07/26/2025 06:39 PM fluticasone propionate 50 mcg/actuation spray,suspension Twice A Day 1 spray, nasal, Twice A Day, both nares 07/15/2007/26/2025 06:39 PM hydralazine 100 mg tablet Three Times A Day 1 tab, oral, Three Times A Day 07/15/2007/26/2025 06:39 PM hydrocodone-acetam inophen 5-325 mg tablet Every 6 Hours - PRN 1 tab, oral, Every 6 Hours - PRN, exempt R52, for pain 07/15/2007/25/2025 11:43 AM loperamide 2 mg tablet Three Times A Day - PRN 1 tab, oral, Three Times A Day - PRN, for diarrhea 07/15/2007/26/2025 12:07 PM losartan 100 mg tablet Once A Day 1 tab, oral, Once A Day 07/15/2007/26/2025 09:34 AM Lovenox (enoxaparin) 30 mg/0.3 mL syringe Once A Day 1, subcutaneous, Once A Day 07/18/20 025 07/26/2025 01:25 PM magnesium oxide 400 mg (241.3 mg magnesium) tablet Once A Day 1 tab, oral, Once A Day, TI for magnesium 07/15/2007/26/2025 09:34 AM mycophenolate sodium 180 mg tablet,delayed release (DR/EC) Four Times A Day 1 tab, oral, Four Times A Day 07/15/2007/27/2025 04:11 AM prednisone 5 mg tablet Once A Day 1 tab, oral, Once A Day 07/15/2007/26/2025 09:34 AM tacrolimus 0.5 mg capsule Twice A Day 3 caps (1.5 mg ), oral, Twice A Day 07/15/2007/26/2025 06:39 PM Afluria 6353-8553 (3yr up)(PF) (flu vac [id number] 36mos up(pf)) 45 mcg (15 mcg x 3)/0.5 m syringe Once - One Time 0.5ml, intramuscular, Once - One Time 07/22/20 025 Afluria 8840-5197 (3yr up)(PF) (flu vac [id number] 36mos up(pf)) 45 mcg (15 mcg x 3)/0.5 m syringe Once - One Time 0.5ml, intramuscular, Once - One Time 07/23/20 erythromycin 5 mg/gram (0.5 %) ointment Four Times A Day 1 lance, right eye, Four Times A Day, 5 day auto stop per TI 07/15/2007/20/2025 10:04 PM Tubersol (tuberculin ppd) 5 tub. unit /0.1 mL solution Once - One Time 0.1ml, intradermal, Once - One Time, Administer the morning after admission 07/17/2007/17/2025 03:21 PM Tubersol (tuberculin ppd) 5 tub. unit /0.1 mL solution Once - One Time 0.1ml, intradermal, Once - One Time, Administer on the day shift 07/25/20 Problems Code Type Problem ICD Code Effective Date Status ICD-10 Unspecified fracture of the lower end of left radius, subsequent encounter for closed fracture with routine healing S52.502D 07/15/2025 Active ICD-10 Displaced fracture o f anterior wall of left acetabulum, subsequent encounter for fracture with routine healing S32.412D 07/15/2025 Active ICD-10 Unspecified fracture of left ilium, subsequent encounter for fracture with routine healing S32.302D 07/15/2025 Active ICD-10 Minimally displaced Zone I fracture of sacrum, subsequent encounter for fracture with routine healing S32.111D 07/15/2025 Active ICD-10 Maxillary fracture, right side, subsequent encounter for fracture with routine healing S02.40CD 07/15/2025 Active ICD-10 Fracture of orbital floor, right side, subsequent encounter for fracture with routine healing S02.31XD 07/15/2025 Active ICD-10 History of falling Z91.81 07/15/2025 Active ICD-10 Cognitive communication deficit R41.841 1005/2025 Active ICD-10 Muscle weakness (generalized) M62.81 2024 Active ICD-10 End stage renal disease N18.6 07/15/2025 A ctive ICD-10 Dependence on renal dialysis Z99.2 025 Active ICD-10 Hypertensive urgency I16.0 07/15/2025 Acti ve ICD-10 Hypertensive chronic kidney disease with stage 5 chronic kidney disease or end stage renal disease I12.0 07/15/2025 Active ICD-10 Tobacco use Z72.0 07/15/2025 Active ICD-10 Nonrheumatic aortic (valve) stenosis I35.0 07/15/2025 Active ICD-10 alf (current) use of aspirin Z79.82 1 Active ICD-10 Immunodeficiency, unspecified D84.9 2024 Active ICD-10 Kidney transplant status Z94.0 07/15/2025 Active ICD-10 Kidney transplant failure T86.12 07/15/2025 Active ICD-10 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 Active 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.52 07/15/2025 Active ICD-10 Unspecified viral he patitis C without hepatic coma B19.20 07/15/2025 Active ICD-10 Anemia, unspecified D64.9 07/15/2025 Activ e ICD-10 Conjunctival hyperemia, right eye H11.431 Active Current Allergies and Intolerances Category Substance Type Reaction Severity Begin Date Status Drug allergy codeine sulfate Allergy 07/15/2025 Active Drug allergy isosorbide (bulk) Allergy Active Drug allergy nifedipine Allergy 07/15/2025 Activ e Drug allergy povidone-iodine Allergy 07/15/2025 Active Drug allergy simvastatin Allergy 07/15/2025 Acti ve Drug allergy trazodone Allergy 07/15/2025 Active Food allergy Cranberry Allergy 07/15/2025 Active Vital Signs Height: 62.0 in Date / Time Temperature Pulse (per minute) Respirations (per minute) Systolic BP (mmHg) Diastolic BP (mmHg) O2 Saturation (%) Weight BMI 2024 06:58 AM 94.0 2024 06:57 AM 97.5 F 65 17 176 80 2024 06:38 PM 98.1 F 70 17 138 70 2024 10:09 AM 171 72 95.0 2024 10:08 AM 97.8 F 64 19 2024 06:58 PM 98.3 F 70 16 127 70 94.0 2024 12:08 PM 97.4 F 64 14 129 68 93.0 2024 11:30 AM 113.5 lbs 20.7 6 2024 08:52 PM 98.4 F 66 16 126 74 97.0 2024 07:00 AM 98.9 F 73 16 194 92 90.0 2024 07:25 PM 99.1 F 71 18 143 65 94.0 2024 09:36 AM 138 79 118.8 lbs 21.7 3 2024 09:35 AM 98.1 F 70 16 174 80 93.0 2024 07:22 PM 96.7 F 85 16 98.0 2024 07:42 AM 93.0 2024 04:15 PM 117.8 lbs 21.5 4 2024 04:57 PM 115.7 lbs 21.1 6 2024 11:59 AM 116.0 lbs 21.2 1 2024 03:53 PM 116.4 lbs 21.2 9 2024 03:41 PM 116.0 lbs 21.2 1 2024 06:36 PM 116.4 lbs 21.2 9 Advance Directives Directive Note Full Code Insurance Providers Payer Policy type Group Name Group number Policy ID Address Ph one Medicare Part A Medicare Part A [id number] Phone: Fax: [facility] Commercial Insurance [id number] Phone: Fax: Private Private Phone: Fax: Private Interest Private Phone: Fax: Private Copay - Ins/HMO Private Phone: Fax: Immunizations Vaccine Package Crimper Date Status Dose Series Complete COVID-19 Vaccine Moderna 01/10/2022 Completed 3 COVID-19 Vaccine Moderna 07/07/2021 Completed 2 COVID-19 Vaccine Moderna 06/10/2021 Completed 1 Influenza Vaccine 07/18/2025 Completed Pneumococcal Vaccine 07/17/2025 Refused RSV Vaccine 07/17/2025 Refused Procedures Not available for this record Results Name Date Time Positive/Negative Value Unit Range TB test 07/17/2025 Negative 0.0 mm Goals Goal Date Advanced directives will be honored as outlined by patient/family on daily basis thru 120days from update/last review 07/16/2025 Will have positive responses to activities of my choice weekly through next assessment. 09/17/2025 Will have a BM at least ever y 3 days for 120 days since update/last review AND/OR will not experience any complications r/t to colostomy for 120 days from update/ last review AND/OR Will not experience any GI complications for 120 days since update/last review AND/OR Will remain clean, dry between incontinent episodes thru 120days from update/last review 10/15/2025 ADL approaches will meet the resident?s needs to enhance ability, maintain abilities, or provide quality. 10/16/2025 Yu will maintain or improve nutritio nal status through next review. 10/16/2025 Resident will improve memory /recall ability as evidenced by: ___ (e.g., recalling staff names, stating he/she is in a halfway, recognizing staff faces, etc). 10/21/2025 Encounters Admission Date Discharge Date Description MRN Visit Count 07/15/2025 15:20 LTPAC Admission [id number] 01
--- OUTSIDE RECORDS SUMMARY | 2025-08-03 08:13 | XMS_ITS | Continuity of Care Document ---
Author Organization [facility] [place], [facility] ([facility]) Address [address] [place] [address] Assessment No assessment recorded. Plan of Treatment Reminders Order Date Submit Date Provider Last Modified By Organization Details Last Modified Time Details Appointments GUO OV 025 09:30AM Ale Guo MD Not available Not available Not available Lab None record ed. Referral None record ed. Procedures None record ed. Surgeries None record ed. Imaging None record ed. Medication Orders None record ed. Patient TargetsNo targets recorded. Patient InstructionsNo instructions recorded. Reason for Referral None Reported. Problems Name Problem SNOMED Code Status Onset Date Resolution Date Notes Provider Name and Address Organization Details Recorded Time Inflammat ory disease of liver 030941548 Active 2021 Hepatitis ; Story: C; Recorded 2 10:18AM by Erin Zuleta, Office Visit; Promoted; acuity set as *; [facility] 5 10:35:11 Hypertens adry disorder 98970378 Active 2024 [facility] 5 08:56:32 Osteoarth ritis 263385018 Active 2024 [facility] 5 08:56:42 Depressiv e disorder 25810413 Active 2024 [facility] 5 11:51:54 Macrocyto sis 071073948 Active 2024 CAROL DENIS [facility] 5 08:57:01 Type 1 diabetes mellitus 31836040 Active 2024 CAROL DENIS [facility] 5 11:19:19 Glaucoma 54951505 Active 2024 CAROL TORRES DENIS [facility] 5 11:51:23 Hyperchol esterolem ia 92797121 Active 2024 BRIAN DENIS [facility] 5 11:51:35 Closed fracture of right wrist [id number] 47452 Active 2024 JAD MANNING [facility] 5 14:21:33 Problem Notes None recorded. Procedures Surgical History Date Name Laterality Status Provider Name and Address Organization Details Recorded Time 2022 Breast augmentation w/implt completed [facility] 3 12:07:09 2021 esophagogastroduodenoscopy completed CAROL DENIS [facility] 5 10:37:39 2019 mammography completed CAROL TORRES DENIS [facility] 5 08:57:57 2009 colonoscopy completed [facility] 5 10:37:11 2001 transplantation of pancreas completed Tam Guo MD [address] [place] [address], [phone] [place] [address], L.[facility] 5 11:48:58 extraction of cataract completed CAROL TORRES [facility] 5 08:58:11 transplant of kidney completed CAROL Macie GARCIA [facility]COL[facility] [place] 5 08:58:39 hysterectomy completed CAROL BRIAN [facility] [place] 5 08:58:48 Shoulder joint surgery completed [facility]RIAN [facility] 5 08:59:00 Imaging Results None recorded. Procedure Notes None recorded. Medical Equipment None Reported. Allergies Allergen ID Allergen Name Allergen Category Reaction Reaction Severity Criticality Documentation Date Start Date Code Code System Note Provider Name and Address Organization Details Recorded Time 69570 atorvasta tin calcium propylene glycol solvate Not available other Not available Not available 05/06/2023 65112 93 RxNorm React ion: STATI NS _deat hly aller gic_; Comme nt: Recor ded 07/15 10:18 AM by Erin Zuleta Offic e Visit ; Berhane low; Dora queen ce: *; Reaso n: Drug aller gy; ; Not Available [facility] 3 02:28:10 10789 codeine hydrochlo ride Not available edema Not available Not available 05/06/2023 42241 66 RxNorm React ion: Edema ; Comme nt: Recor ded 07/15 10:18 AM by Erin Zuleta Offic e Visit ; Berhane queen ce: *; ; Not Available [facility] 3 02:28:10 89092 Substance with sulfonami de structure and antibacte rial mechanism of action (substanc e) medicatio n Not available Not available Not available 05/06/2023 58294 8003 SNOMED Comme nt: Recor ded 07/15 10:18 AM by Erin Zuleta Offic e Visit ; Berhane queen ce: *; ; Not Available [facility] 3 02:28:10 872 codeine medicatio n rash moderate low 01/09/2023 2670 RxNorm CAROL HURSTH [facility] 3 12:43:50 Medications Name Sig Start Date [...] metronida zole bid 01/22 completed Recorded 10/20/19 23 9:16AM by Carol Denis LPN, Phone Encounte r; Refill Quantity : 0; Not Available Not Available Not Available Flonase each nostril BID 01/22 completed 63986; Recorded 02/24/20 22 9:46AM by Ronaldo Mccarty (i sheridan through Ale Guo MD), Refill Request; Refill Quantity : 1; [...] Available Vitamin qd 01/22 completed VO CH/jl; 31437; Recorded 08/17/20 4:59PM by Vicky Ngo LPN (Authori sheridan through Aaron Lo DO), Refill Request; Refill Quantity : 0; Not Available Not Available Not Available Vitamin-C active 0; Recorded 02/17/20 1:44PM by Ronaldo Mccarty, Office Visit; Not Available Not Available Not Available Myfortic QID 01/22 completed 0; Recorded 02/17/20 1:44PM by [...] Arterial blood by Pulse oximetry Heart rate Respiratory rate Body temperature Systolic And Diastolic Provider Name and Address Organization Details Last Updated DateTime 5 157.48 cm 20.7 kg/m2 90557.6 9 g 97 % 97 % 64 /min 17 /min 96.7 [degF] 142/70 mm[Hg] JAD MANNING [facility] 5 14:14:07 Social History Question Answer Notes LastModified by [email or web address] ion Details LastModified Time Tobacco Smoking Status Former Smoker CAROL saucedo, [facility] 01/22/2025 11:21:29 At What Age Did You Start Smoking Tobacco? 18 [email or web address] Information not available 01/09/2023 How Much Tobacco Do You Smoke? 1 PPW [email or web address] Information not available 01/09/2023 Sex: Unknown Functional Status None recorded. Mental Status None recorded. Family History Relationship Description Onset Age of this Age Resolved Age Notes LastModified by Organization Details LastModified Time Father Myocardial infarction 78 [email or web address] Not available 11:20:41 Mother Diabetes mellitus [email or web address] Not available 01/07 11:20:53 Brother Myocardial infarction 36 Not available 11:21:13 Medical History Condition Response Coronary Artery Disease N Other N Gout N Kidney Stones N Blood Diseases N Hyperthyroidism N Breast Cancer N Blood Transfusion N Depression N Hypothyroidism N Lung Disease N COPD N Developmental or Behavioral Disorders N Defects or Inherited Disease N Breast Problem N Difficulty Swallowing N Anesthesia Complications N Anxiety Disorder N Meniere's disease N Muscle, Joint, or Bone Problems N Vision or Eye Problems Y Arthritis Y Infertility N Polyps N Cancer N Stroke N Varicosities N Endometriosis N Bladder or Kidney Problems Y High Cholesterol Y Liver Disease Y Fibromyalgia N Headaches N Kidney Disease N Allergies/Hayfever Y Heart [...] Y Heart Disease N Pulmonary Embolism N Pre-Eclampsia N Hypertension Y Chronic Ear Infections N Osteoporosis N Chicken Pox N Autism Spectrum Disorder (ASD) N Thrombophilias N Gynecological History Statement/Question Response Date of Last Pap Smear Obstetrics History GPAL:G 9 P 1 0 8 1 Type Value Full Term 1 Spontaneous 8 Living 1 Total 9 Immunizations Vaccine Type Date Status Note Provider Nam e and Address Organization Details Recorded Time influenza, split (incl. purified surface antigen) 0 completed Not Available [facility] 07/30/2025 13:19:42 Influenza, split virus, trivalent, PF 5 completed Not Available [facility] 07/30/2025 13:19:42 Pneumococcal conjugate PCV 13 5 completed Not Available [facility] 07/30/2025 13:19:42 Tdap 6 completed Not Available [facility] 07/30/2025 13:19:42 Influenza, split virus, trivalent, PF 8 completed Not Available [facility] 07/30/2025 13:19:42 Influenza, split virus, quadrivalent, PF 9 completed Not Available [facility] 07/30/2025 13:19:42 Hep B, adult 0 completed Not Available [facility] 07/30/2025 13:19:42 Hep A, adult 0 completed Not Available [facility] 07/30/2025 13:19:42 COVID-19, mRNA, LNP-S, PF, 100 mcg/0.5mL dose or 50 mcg/0.25mL dose 1 completed Not Available [facility] 07/30/2025 13:19:42 Influenza, split virus, quadrivalent, PF 1 completed Not Available [facility] 07/30/2025 13:19:42 COVID-19, mRNA, LNP-S, PF, 100 mcg/0.5mL dose or 50 mcg/0.25mL dose 1 completed Not Available [facility] 07/30/2025 13:19:42 COVID-19, mRNA, LNP-S, PF, 100 mcg/0.5mL dose or 50 mcg/0.25mL dose 2 completed Not Available [facility] 07/30/2025 13:19:42 Influenza, split virus, trivalent, preservative 4 completed Not Available [facility] 05/06/2023 02:27:37 Influenza, split virus, trivalent, preservative 7 completed Not Available [facility] 05/06/2023 02:27:37 Past Encounters Encounter ID Performer Location Encounter Start Date Encounter Closed Date Diagnosis/Indication Diagnosis SNOMED-CT Code Diagnosis ICD10 Code Diagnosis IMO Codes Diagnosis Note [id number] Lauri Logan DO [facility] ([facility]) [address] [place] [phone] 07/17/2025 13:38:56 07/22/2025 12:15:45 Post-discharge follow-up 658501899 Z09 240477 End stage renal failure on dialysis 709641602 N18.6 Z99.2 888175 Failed brad al transplant 621129638 T86.12 8606123 Hypertensive urgency 443 451149 I16.0 3127331 Closed fra cture of left wrist 7787978192 6849852 S62.102S 37991599 Closed fra cture of facial bone 911842873 S02.92XS 556788289 Closed fra cture of pelvis 12207042 S32.9XXS 185218745 [id number] DRAKE BAUTISTA PA-C [facility] ([facility]) [address] [place] [address] 07/30/2025 13:19:24 08/01/2025 10:45:43 History of fall 874037298 Z91.81 [id number] Home health with nursing and pt/otD/C with current meds. f/u with pcp in 2 weeks. Closed fra cture of right wrist 6010264271 0507304 S62.101S 49329687 Closed fra cture of right orbital floor 8973416637 3078712 S02.31XD 21742575 End stage renal failure on dialysis 101540429 N18.6 Z99.2 192467 Closed fra cture of ilium 89270543 S32.302D 97195706 Face to face for manual wheel chair done today. Pt has mobility limitation that impairs their ability to perform MRADLs. Mobility limitation cannot be resolved by cane or walker. It will significan tly improve there ability to perform MRADLs and will be used regularly in the home. She expresses desire to have wheel chair. Has the upper extremity function and mental capabiliti es to safely self propel. Face to face for walker with elevated platform on the left. needed due leg weakness and left forearm fracture. needed to perform her adls and reduce her fall risk. Health Concerns Section Related Observation LastModified by Organization Detai ls LastModified Time None Recorded Concern Status LastModified by Organization Details LastModified Time None Recorded Payers Encounter Date Sequence Insurance Name Policy Number Policy Pereira Covered Member ID Pereira Member ID Guarantor Name 07/30/[address] [facility] (MEDICARE REPLACEMENT/A DVANTAGE - HMO) Yu Nunez [id number] Yu Nunez 07/30/2025 2 [place] Yu Nunez [id number] Yu Nunez Notes Date Note Type Note Provider Name and Address Organization Details Recorded Time 07/30/2025 text/html Musculoskeletal PainReported by PatientHPIFor quality, patient reportssharp,tingling , anddull. For location, patient reportsright wrist. For duration, patient reportspresent <1 month. For timing, patient reportsconstantandsud den. Pt will be discharging to home and needs HH and face to face for walker with left arm platform due to L forearm fxAlso face to face for manual WCPt was admited due to fall at home. sustained Facial fx (nondisplaced/non operative) and left forarm fxShe was admited due to low Hgb and accelerated HTN as well.She is now stable and feels ready to go home. DRAKE BAUTISTA PA-C [address] [place], [address], [facility] 07/30/2025 16:35:23 OBGyn Episode No OBEpisode recorded.
--- OUTSIDE RECORDS SUMMARY | 2025-08-03 08:14 | XMS_ITS | Continuity of Care Document ---
Author Organization [employer] ([facility]) Address [address] [place] [address] Insurance Providers Payer Plan Claims Address Claims Phone Policy Number Group Number Relation Employer Guarantor Name Guarantor Guarantor Address Guarantor Phone [employer] [id number] Self Yu Nunez [address] [place] [id number] [place] [employer] Dual Comp [id number] Self Yu Nunez [address] [place] [id number] [employer] [facility] - [employer] [address] [address], [place] [address] tel:[phone] [facility] [id number] Self Yu Nunez [address] [place] [id number] Problems Condition ICD9 code ICD10 code SNOMED code Start Date End Date S tatus Unspecified fracture of the lower end of left radius, subsequent encounter for closed fracture with routine healing S52.502D 07/15/2025 Active Displaced fracture of anterior wall of left acetabulum, subsequent encounter for fracture with routine healing S32.412D 07/15/2025 Acti ve Unspecified fracture of left ilium, subsequent encounter for fracture with routine healing S32.302D 07/15/2025 Acti ve Minimally displaced Zone I fracture of sacrum, subsequent encounter for fracture with routine healing S32.111D 07/15/2025 Active Maxillary fracture, right side, subsequent encounter for fracture with routine healing S02.40CD 07/15/2025 Acti ve Fracture of orbital floor, right side, subsequent encounter for fracture with routine healing S02.31XD 07/15/2025 Active History of falling Z91.81 07/15/2025 Ac tive End stage renal disease N18.6 07/15/2025 Active Dependence on renal dialysis Z99.2 07/15/2025 Active Hypertensive chronic kidney disease with stage 5 chronic kidney disease or end stage renal disease I12.0 07/15/2025 Active Tobacco use Z72.0 07/15/2025 Active Nonrheumatic aortic (valve) stenosis I35.0 07/15/2025 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 Z79.82 07/15/2025 Active Immunodeficiency, unspecified D84.9 07/15/2025 Active Kidney transplant status Z94.0 07/15/2025 Active 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 Refere nce Range Tuberculosis reaction wheal[ 57074-1] Tuberculosis reaction wheal [80312-9] 07/17/2025 05:00 PM 0 mm NEG Allergies, adverse reactions, alerts Substance Reaction Date Status Type nifedipine 07/15/2025 Non Drug isosorbide (bulk) 07/15/2025 Non Cristofer g codeine sulfate 07/15/2025 Non Drug trazodone 07/15/2025 Non Drug Cranberry 07/15/2025 Non Drug povidone-iodine 07/15/2025 Non Drug simvastatin 07/15/2025 Non Drug Immunizations Vaccine Route Date Status Pneumococcal Vaccine Unassigned Route of Administratio n 07/17/2025 Refused COVID-19 Vaccine Unassigned Route of Administration Completed COVID-19 Vaccine Unassigned Route of Administration Completed COVID-19 Vaccine Unassigned Route of Administration Completed Influenza Vaccine Unassigned Route of Administration 1 Completed Medications Medication Instructions Route Dosage Frequency Start Date Stop Date Indications Status aspirin 81 mg tablet,chewable (aspirin) 1 tab, oral, At Bedtime, give at 9pm oral 1.0 07/31 Active carvedilol 25 mg tablet (carvedilol) 1 tab, oral, Once A Day oral 1.0 1.0 d 07/31 Active bumetanide 1 mg tablet (bumetanide) 1 tab, oral, Once A Day, give on NON-DIALYSIS days oral 1.0 1.0 d 07/31 Active cholecalciferol (vitamin D3) 25 mcg (1,000 unit) tablet (cholecalcifero l (vitamin D3)) 1 tab, oral, Once A Day oral 1.0 1.0 d 07/31 Active clonidine HCl 0.2 mg tablet (clonidine HCl) 1 tab, oral, Twice A Day, TI for clonidine transdermal oral 1.0 12.0 h 07/31 Active erythromycin 5 mg/gram (0.5 %) ointment (erythromycin) 1 lance, right eye, Four Times A Day, 5 day auto stop per TI 1.0 6.0 h 07/20 Active docusate sodium 100 mg tablet (docusate sodium) 1 tab, oral, Twice A Day oral 1.0 12.0 h 07/31 Active hydralazine 100 mg tablet (hydralazine) 1 tab, oral, Three Times A Day oral 1.0 8.0 h 07/31 Active fluticasone propionate 50 mcg/actuation spray,suspensio n (fluticasone propionate) 1 spray, nasal, Twice A Day, both nares nasal 1.0 12.0 h 07/31 Active hydrocodone-ilana taminophen 5-325 mg tablet (hydrocodone-ac etaminophen) 1 tab, oral, Every 6 Hours - PRN, exempt R52, for pain oral 1.0 6.0 h 07/315 Active losartan 100 mg tablet (losartan) 1 tab, oral, Once A Day oral 1.0 1.0 d 07/31 Active loperamide 2 mg tablet (loperamide) 1 tab, oral, Three Times A Day - PRN, for diarrhea oral 1.0 8.0 h 07/31 Active magnesium oxide 400 mg (241.3 mg magnesium) tablet (magnesium oxide) 1 tab, oral, Once A Day, TI for magnesium oral 1.0 1.0 d 07/31 Active prednisone 5 mg tablet (prednisone) 1 tab, oral, Once A Day oral 1.0 1.0 d 07/31 Active mycophenolate sodium 180 mg tablet,delayed release (DR/EC) (mycophenolate sodium) 1 tab, oral, Four Times A Day oral 1.0 6.0 h 07/31 Active tacrolimus 0.5 mg capsule (tacrolimus) 3 caps (1.5 mg ), oral, Twice A Day oral 1.0 12.0 h 07/31 Active Tubersol (tuberculin ppd) 5 tub. unit /0.1 mL solution (Tubersol (tuberculin ppd)) 0.1ml, intradermal, Once - One Time, Administer the morning after admission intraderma l 1.0 07/17 Active Lovenox (enoxaparin) 30 mg/0.3 mL syringe (Lovenox (enoxaparin)) 1, subcutaneous, Once A Day subcutaneo us 1.0 1.0 d 08/22 Active Afluria 4324-0655 (3yr up)(PF) (flu vac [id number] 36mos up(pf)) 45 mcg (15 mcg x 3)/0.5 m syringe (Afluria 8857-0536 (3yr up)(PF) (flu vac [id number] 36mos up(pf))) 0.5ml, intramuscular , Once - One Time intramuscu lar 1.0 07/22 Active Afluria 3414-3736 (3yr up)(PF) (flu vac [id number] 36mos up(pf)) 45 mcg (15 mcg x 3)/0.5 m syringe (Afluria (3yr up)(PF) (flu vac [id number] 36mos up(pf))) 0.5ml, intramuscular , Once - One Time intramuscu lar 1.0 07/22 Active Tubersol (tuberculin ppd) 5 tub. unit /0.1 mL solution (Tubersol (tuberculin ppd)) 0.1ml, intradermal, Once - One Time, Administer on the day shift intraderma l 1.0 07/25 Active Afluria 7818-2504 (3yr up)(PF) (flu vac [id number] 36mos up(pf)) 45 mcg (15 mcg x 3)/0.5 m syringe (Afluria (3yr up)(PF) (flu vac [id number] 36mos up(pf))) 0.5ml, intramuscular , Once - One Time intramuscu lar 1.0 07/30 Active erythromycin 5 mg/gram (0.5 %) ointment (erythromycin) 1 lance, right eye, Four Times A Day, 5 day auto stop per TI 1.0 6.0 h 07/30 Active Lovenox (enoxaparin) 30 mg/0.3 mL syringe (Lovenox (enoxaparin)) 1, subcutaneous, Once A Day subcutaneo us 1.0 1.0 d 07/31 Active Tubersol (tuberculin ppd) 5 tub. unit /0.1 mL solution (Tubersol (tuberculin ppd)) 0.1ml, intradermal, Once - One Time, Administer the morning after admission intraderma l 1.0 07/30 Active Tubersol (tuberculin ppd) 5 tub. unit /0.1 mL solution (Tubersol (tuberculin ppd)) 0.1ml, intradermal, Once - One Time, Administer on the day shift intraderma l 1.0 07/30 Active Vital Signs Date Vital Result Comment 07/15/2025 03:36 PM Temperature (8310-5) 98 [degF] Oxygen Saturation (88681-9) 95 % Respiratory Rate (9279-1) 20 /min Heart Rate (8867-4) 63 /min Blood Pressure Systolic (8480-6) 170 mm[Hg] Blood Pressure Diastolic (8462-4) 81 mm[Hg] Body Height (8302-2) 62 [in_us] 07/15/2025 06:36 PM Body Weight (66652-8) 116.4 [lb_av ] Body Mass Index (55537-8) 21.29 kg/m2 07/16/2025 03:41 PM Body Weight (81104-2) 116 [lb_av] Body Mass Index (23974-2) 21.21 kg/m2 07/16/2025 11:38 AM Body Height (8302-2) 62 [in_us] 07/16/2025 11:37 AM Temperature (8310-5) 97.6 [degF] Oxygen Saturation (58267-9) 96 % Respiratory Rate (9279-1) 16 /min Heart Rate (8867-4) 60 /min Blood Pressure Systolic (8480-6) 136 mm[Hg] Blood Pressure Diastolic (8462-4) 78 mm[Hg] 07/16/2025 06:49 PM Temperature (8310-5) 98.2 [degF] Oxygen Saturation (95149-0) 98 % Respiratory Rate (9279-1) 18 /min Heart Rate (8867-4) 73 /min Blood Pressure Systolic (8480-6) 142 mm[Hg] Blood Pressure Diastolic (8462-4) 78 mm[Hg] 07/17/2025 03:53 PM Body Weight (52299-1) 116.4 [lb_av ] Body Mass Index (01007-1) 21.29 kg/m2 07/17/2025 12:06 PM Temperature (8310-5) 98 [degF] Oxygen Saturation (93567-1) 97 % Respiratory Rate (9279-1) 20 /min Heart Rate (8867-4) 70 /min Blood Pressure Systolic (8480-6) 166 mm[Hg] Blood Pressure Diastolic (8462-4) 85 mm[Hg] 07/17/2025 07:22 PM Temperature (8310-5) 96.7 [degF] Oxygen Saturation (21770-4) 93 % Respiratory Rate (9279-1) 18 /min Heart Rate (8867-4) 66 /min Blood Pressure Systolic (8480-6) 135 mm[Hg] Blood Pressure Diastolic (8462-4) 66 mm[Hg] 07/18/2025 04:57 PM Body Weight (70209-1) 115.7 [lb_av ] Body Mass Index (04253-8) 21.16 kg/m2 07/18/2025 11:59 AM Body Weight (70071-2) 116 [lb_av] Body Mass Index (06894-5) 21.21 kg/m2 07/18/2025 08:15 PM Temperature (8310-5) 98.7 [degF] Oxygen Saturation (67798-4) 93 % Respiratory Rate (9279-1) 16 /min Heart Rate (8867-4) 72 /min Blood Pressure Systolic (8480-6) 133 mm[Hg] Blood Pressure Diastolic (8462-4) 59 mm[Hg] 2025 08:29 AM Temperature (8310-5) 97.5 [degF] Oxygen Saturation (81635-6) 95 % Respiratory Rate (9279-1) 18 /min Heart Rate (8867-4) 64 /min Blood Pressure Systolic (8480-6) 146 mm[Hg] Blood Pressure Diastolic (8462-4) 73 mm[Hg] 2025 04:15 PM Body Weight (19164-7) 117.8 [lb_av ] Body Mass Index (46653-6) 21.54 kg/m2 2025 10:06 PM Temperature (8310-5) 98 [degF] Oxygen Saturation (53446-6) 96 % Respiratory Rate (9279-1) 18 /min Heart Rate (8867-4) 70 /min Blood Pressure Systolic (8480-6) 126 mm[Hg] Blood Pressure Diastolic (8462-4) 88 mm[Hg] 07/20/2025 07:55 AM Temperature (8310-5) 97.8 [degF] Oxygen Saturation (36475-9) 92 % Respiratory Rate (9279-1) 18 /min Heart Rate (8867-4) 71 /min Blood Pressure Systolic (8480-6) 138 mm[Hg] Blood Pressure Diastolic (8462-4) 79 mm[Hg] 07/20/2025 09:44 PM Temperature (8310-5) 97 [degF] Oxygen Saturation (72041-2) 97 % Respiratory Rate (9279-1) 16 /min Heart Rate (8867-4) 78 /min Blood Pressure Systolic (8480-6) 132 mm[Hg] Blood Pressure Diastolic (8462-4) 67 mm[Hg] 07/21/2025 12:48 PM Temperature (8310-5) 97.8 [degF] Oxygen Saturation (85312-2) 97 % Respiratory Rate (9279-1) 18 /min Heart Rate (8867-4) 69 /min Blood Pressure Systolic (8480-6) 109 mm[Hg] Blood Pressure Diastolic (8462-4) 61 mm[Hg] 07/21/2025 08:36 PM Temperature (8310-5) 98.6 [degF] Oxygen Saturation (86565-4) 92 % Respiratory Rate (9279-1) 19 /min Heart Rate (8867-4) 81 /min Blood Pressure Systolic (8480-6) 146 mm[Hg] Blood Pressure Diastolic (8462-4) 60 mm[Hg] 07/22/2025 07:42 AM Temperature (8310-5) 97.6 [degF] Oxygen Saturation (97749-3) 93 % Respiratory Rate (9279-1) 19 /min Heart Rate (8867-4) 72 /min Blood Pressure Systolic (8480-6) 186 mm[Hg] Blood Pressure Diastolic (8462-4) 84 mm[Hg] 07/22/2025 07:22 PM Temperature (8310-5) 96.7 [degF] Oxygen Saturation (98403-4) 98 % Respiratory Rate (9279-1) 16 /min Heart Rate (8867-4) 85 /min Blood Pressure Systolic (8480-6) 115 mm[Hg] Blood Pressure Diastolic (8462-4) 64 mm[Hg] 07/23/2025 09:35 AM Temperature (8310-5) 98.1 [degF] Oxygen Saturation (84003-0) 93 % Respiratory Rate (9279-1) 16 /min Heart Rate (8867-4) 70 /min Blood Pressure Systolic (8480-6) 174 mm[Hg] Blood Pressure Diastolic (8462-4) 80 mm[Hg] 07/23/2025 09:36 AM Blood Pressure Systolic (8480-6) 1 38 mm[Hg] Blood Pressure Diastolic (8462-4) 79 mm[Hg] Body Weight (48803-4) 118.8 [lb_av] Body Mass Index (69997-0) 21.73 kg/m2 07/23/2025 07:25 PM Temperature (8310-5) 99.1 [degF] Oxygen Saturation (94201-0) 94 % Respiratory Rate (9279-1) 18 /min Heart Rate (8867-4) 71 /min Blood Pressure Systolic (8480-6) 143 mm[Hg] Blood Pressure Diastolic (8462-4) 65 mm[Hg] 07/24/2025 07:00 AM Temperature (8310-5) 98.9 [degF] Oxygen Saturation (81230-9) 90 % Respiratory Rate (9279-1) 16 /min Heart Rate (8867-4) 73 /min Blood Pressure Systolic (8480-6) 194 mm[Hg] Blood Pressure Diastolic (8462-4) 92 mm[Hg] 07/24/2025 08:52 PM Temperature (8310-5) 98.4 [degF] Oxygen Saturation (44426-3) 97 % Respiratory Rate (9279-1) 16 /min Heart Rate (8867-4) 66 /min Blood Pressure Systolic (8480-6) 126 mm[Hg] Blood Pressure Diastolic (8462-4) 74 mm[Hg] 07/25/2025 12:08 PM Temperature (8310-5) 97.4 [degF] Oxygen Saturation (94875-2) 93 % Respiratory Rate (9279-1) 14 /min Heart Rate (8867-4) 64 /min Blood Pressure Systolic (8480-6) 129 mm[Hg] Blood Pressure Diastolic (8462-4) 68 mm[Hg] 07/25/2025 11:30 AM Body Weight (86034-9) 113.5 [lb_av ] Body Mass Index (47646-5) 20.76 kg/m2 07/25/2025 06:58 PM Temperature (8310-5) 98.3 [degF] Oxygen Saturation (84113-2) 94 % Respiratory Rate (9279-1) 16 /min Heart Rate (8867-4) 70 /min Blood Pressure Systolic (8480-6) 127 mm[Hg] Blood Pressure Diastolic (8462-4) 70 mm[Hg] 07/26/2025 10:08 AM Temperature (8310-5) 97.8 [degF] Respiratory Rate (9279-1) 19 /min Heart Rate (8867-4) 64 /min 07/26/2025 10:09 AM Oxygen Saturation (16539-4) 95 % Blood Pressure Systolic (8480-6) 171 mm[Hg] Blood Pressure Diastolic (8462-4) 72 mm[Hg] 07/26/2025 06:38 PM Temperature (8310-5) 98.1 [degF] Respiratory Rate (9279-1) 17 /min Heart Rate (8867-4) 70 /min Blood Pressure Systolic (8480-6) 138 mm[Hg] Blood Pressure Diastolic (8462-4) 70 mm[Hg] 07/27/2025 06:58 AM Oxygen Saturation (91042-2) 94 % 07/27/2025 06:57 AM Temperature (8310-5) 97.5 [degF] Respiratory Rate (9279-1) 17 /min Heart Rate (8867-4) 65 /min Blood Pressure Systolic (8480-6) 176 mm[Hg] Blood Pressure Diastolic (8462-4) 80 mm[Hg] 07/27/2025 10:19 PM Temperature (8310-5) 98 [degF] Oxygen Saturation (50905-5) 93 % Respiratory Rate (9279-1) 17 /min Heart Rate (8867-4) 62 /min Blood Pressure Systolic (8480-6) 122 mm[Hg] Blood Pressure Diastolic (8462-4) 65 mm[Hg] 07/28/2025 05:34 PM Temperature (8310-5) 97.7 [degF] Oxygen Saturation (39202-4) 96 % Respiratory Rate (9279-1) 18 /min Heart Rate (8867-4) 80 /min Blood Pressure Systolic (8480-6) 174 mm[Hg] Blood Pressure Diastolic (8462-4) 69 mm[Hg] 07/28/2025 08:35 PM Temperature (8310-5) 98.2 [degF] Oxygen Saturation (21466-6) 96 % Respiratory Rate (9279-1) 16 /min Heart Rate (8867-4) 78 /min Blood Pressure Systolic (8480-6) 168 mm[Hg] Blood Pressure Diastolic (8462-4) 84 mm[Hg] 07/29/2025 08:29 AM Temperature (8310-5) 100.3 [degF] Oxygen Saturation (56227-1) 90 % Respiratory Rate (9279-1) 14 /min Heart Rate (8867-4) 79 /min Blood Pressure Systolic (8480-6) 187 mm[Hg] Blood Pressure Diastolic (8462-4) 91 mm[Hg] 07/29/2025 07:50 PM Temperature (8310-5) 96.7 [degF] Oxygen Saturation (34578-5) 97 % Respiratory Rate (9279-1) 17 /min Heart Rate (8867-4) 64 /min Blood Pressure Systolic (8480-6) 142 mm[Hg] Blood Pressure Diastolic (8462-4) 70 mm[Hg] 07/30/2025 12:51 PM Temperature (8310-5) 97.5 [degF] Oxygen Saturation (36788-4) 93 % Respiratory Rate (9279-1) 18 /min Heart Rate (8867-4) 71 /min Blood Pressure Systolic (8480-6) 152 mm[Hg] Blood Pressure Diastolic (8462-4) 86 mm[Hg] Social History No smoking Hx information available Encounters Type CPT Code Date Location Provider Indication s encounter report 07/15/2025 03:2 0 PM - 07/30/2025 01:05 PM Lauri Logan DO 01 Advance Directives Directive Description Verification Date Supporting Document(s) Other Directive
--- OUTSIDE RECORDS SUMMARY | 2025-08-03 08:15 | XMS_ITS | Data Portability ---
Author Organization [facility] Address [address] [address] Assessment No assessment recorded. Plan of Treatment Reminders Order Date Submit Date Provider Last Modified By Organization Details Last Modified Time Details Appointments GUO OV 2024 09:30A M Ale Guo MD Not available Not available Not available Lab urinalysi s, dipstick [address] [facility] ([facility]), [address] [place] [address], [address], 01/09/2023 14:10:23 Referral cardiolog ist referral 2024 025 [place] [address] [facility], [address] [place] [address] [address], [place], [address], 03/12/2025 17:45:26 Procedures None recorded. Surgeries None recorded. Imaging None recorded. Medication Orders Macrobid 100 mg capsule 2022 023 [id number] [facility], [address], [place], [address], 01/22/2025 11:17:46 Patient TargetsNo targets recorded. Patient Instructions Encounter Date Encounter Id Patient Instructions Last Modified By Organization Details Last Modified Time 07/17/2025 [id number] Admitted after fall resulted in mutiple fractures. On dialysis. Pain controlled, plan to work with therapy with goal of returning home. Labs on Monday. Not available 07/17/2025 14:15:53 Reason for Referral [employer] Referral for [place] bile essential hypertension Referring Physician: Ale Guo, Family Medicine, Encounter Date: 01/22/2025 Results Created Date Observation Date Name Description Value Unit Range Abnormal Flag Note LastModifiedBy Organization Detail LastModifiedTime 01/11/20 23 01/10/2023 urina lysis , compl ete color Not Available [facility] ([facility]) [address] [place], [address], 01/09/2023 08:25:37 01/11/20 23 01/10/2023 urina lysis , compl ete clarity clear Not Available [facility] ([facility]) [address] [place], [address], 01/09/2023 08:25:37 01/11/20 23 01/10/2023 urina lysis , compl ete glucose negati ve Not Available [facility] [address] [place], [address], 01/09/2023 08:25:37 01/11/20 23 01/10/2023 urina lysis , compl ete bilirubin negati ve Not Available [facility] ([facility]) [address] [place], [address], 01/09/2023 08:25:37 01/11/20 23 01/10/2023 urina lysis , compl ete ketones negati ve Not Available [facility] ([facility]) [address] [place], [address], 01/09/2023 08:25:37 01/11/20 23 01/10/2023 urina lysis , compl ete specific gravity 1.005- 1.025 Not Available [facility] ([facility]) [address] [place], [address], 01/09/2023 08:25:37 01/11/20 23 01/10/2023 urina lysis , compl ete pH 5.0-7. 0 Not Available [facility] ([facility]) [address] [place], [address], 01/09/2023 08:25:37 01/11/20 23 01/10/2023 urina lysis , compl ete nitrate negati ve Not Available [facility] ([facility]) [address] [place], [address], 01/09/2023 08:25:37 01/11/20 23 01/10/2023 urina lysis , compl ete blood negati ve Not Available [facility] ([facility]) [address] [place], [address], 01/09/2023 08:25:37 01/11/20 23 01/10/2023 urina lysis , compl ete leukocytes negati ve Not Available [facility] ([facility]) [address] [place], [address], 01/09/2023 08:25:37 01/11/20 23 01/10/2023 urina lysis , compl ete WBC 0 Not Available [facility] ([facility]) [address] [place], [address], 01/09/2023 08:25:37 01/11/20 23 01/10/2023 urina lysis , compl ete RBC 0 Not Available [facility] ([facility]) [address] [place], [address], 01/09/2023 08:25:37 01/11/20 23 01/10/2023 urina lysis , compl ete epi cells 0 Not Available [facility] ([facility]) [address] [place], [address], 01/09/2023 08:25:37 04/04/01/10/2023 urina lysis , compl ete bacteria Not Available [facility] ([facility]) [address] [place], [address], 01/09/2023 08:25:37 01/11/20 23 01/10/2023 urina lysis , compl ete other Not Available [facility] ([facility]) [address] [place], [address], 01/09/2023 08:25:37 01/11/20 23 01/10/2023 urina lysis , dipst ick Leukocytes Negati ve Not Available [facility] ([facility]) [address] [place], [address], 01/09/2023 12:42:26 01/11/20 23 01/10/2023 urina lysis , dipst ick Nitrite negati ve Not Available [facility] ([facility]) [address] [place], [address], 01/09/2023 12:42:26 01/11/20 23 01/10/2023 urina lysis , dipst ick Urobilinogen .2 Not Available [facility] ([facility]) [address] [place], [address], 01/09/2023 12:42:26 01/11/20 23 01/10/2023 urina lysis , dipst ick pH 5.5 Not Available [facility] ([facility]) [address] [place], [address], 01/09/2023 12:42:26 01/11/20 23 01/10/2023 urina lysis , dipst ick Blood Negati ve Not Available [facility] ([facility]) [address] [place], [address], 01/09/2023 12:42:26 01/11/20 23 01/10/2023 urina lysis , dipst ick Specific [place] 1.025 Not Available [facility] ( [facility]) [address] [place], [address], 01/09/2023 12:42:26 01/11/20 23 01/10/2023 urina lysis , dipst ick Ketone Negati ve Not Available [facility] ([facility]) [address] [place], [address], 01/09/2023 12:42:26 01/11/20 23 01/10/2023 urina lysis , dipst ick Bilirubin Negati ve Not Available [facility] ([facility]) [address] [place], [address], 01/09/2023 12:42:26 01/11/20 23 01/10/2023 urina lysis , dipst ick Glucose Negati ve Not Available [facility] ([facility]) [address] [place], [address], 01/09/2023 12:42:26 01/11/20 23 01/10/2023 urina lysis , dipst ick Appearance Clear Not Available [facility] ([facility]) [address] [place], [address], 01/09/2023 12:42:26 01/11/20 23 01/10/2023 urina lysis , dipst ick Color Dark Yellow Not Available [facility] ([facility]) [address] [place], [address], 01/09/2023 12:42:26 01/11/20 23 01/10/2023 urina lysis , dipst ick Protein 2000+ Not Available [facility] ([facility]) [address] [place], [address], 01/09/2023 12:42:26 Result Notes None recorded. Problems Name Problem SNOMED Code Status Onset Date Resolution Date Notes Provider Name and Address Organization Details Recorded Time Inflammat ory disease of liver 403330034 Active 2021 Hepatitis ; Story: C; Recorded 2 10:18AM by Erin Zuleta, Office Visit; Promoted; acuity set as *; [facility] 5 10:35:11 Hypertens adry disorder 27952297 Active 2024 CAROL DENIS [facility] 5 08:56:32 Osteoarth ritis 533223304 Active 2024 CAROL DENIS [facility] 5 08:56:42 Depressiv e disorder 93616876 Active 2024 CAROL BRIAN DENIS [facility] 5 11:51:54 Macrocyto sis 376207340 Active 2024 CAROL DENIS [facility] 5 08:57:01 Type 1 diabetes mellitus 56162452 Active 2024 CAROL DENIS [facility] 5 11:19:19 Glaucoma 99623382 Active 2024 CAROL DENIS [facility] 5 11:51:23 Hyperchol esterolem ia 34907943 Active 2024 CAROL DENIS [facility] 5 11:51:35 Closed fracture of right wrist 611634318986 54157 Active 2024 JAD MANNING [facility] 5 14:21:33 Problem Notes None recorded. Procedures Surgical History Date Name Laterality Status Provider Name and Address Organization Details Recorded Time 2022 Breast augmentation w/implt completed AUBR DIVINA MCCARTY [facility] 3 12:07:09 2021 esophagogastroduodenoscopy completed CAROL PRINCE [facility] 5 10:37:39 2019 mammography completed CAROL TORRES [facility] 5 08:57:57 2009 colonoscopy completed [facility] 5 10:37:11 2001 transplantation of pancreas completed Tam Guo MD [address] [place] [address], [address], [facility] 5 11:48:58 extraction of cataract completed CAROL [facility] 5 08:58:11 transplant of kidney completed CAROL GARCIA [facility] 5 08:58:39 hysterectomy completed CAROL [facility] 5 08:58:48 Shoulder joint surgery completed [facility] 5 08:59:00 Imaging Results None recorded. Procedure Notes None recorded. Medical Equipment None Reported. Allergies Allergen ID Allergen Name Allergen Category Reaction Reaction Severity Criticality Documentation Date Start Date Code Code System Note Provider Name and Address Organization Details Recorded Time 27250 atorvasta tin calcium propylene glycol solvate Not available other Not available Not available 05/06/2023 13454 93 RxNorm React ion: STATI NS _deat hly aller gic_; Comme nt: Recor ded 07/15 10:18 AM by Lucas Kern Visit ; Berhane maranda; Signi bret ce: *; Reaso n: Drug aller gy; ; Not Available [facility] 3 02:28:10 45107 codeine hydrochlo ride Not available edema Not available Not available 05/06/2023 01593 66 RxNorm React ion: Edema ; Comme nt: Recor ded 07/15 10:18 AM by Erin Zuleta Offic e Visit ; Promo maranda; Dora queen ce: *; ; Not Available [facility] 3 02:28:10 62502 Substance with sulfonami de structure and antibacte rial mechanism of action (substanc e) medicatio n Not available Not available Not available 05/06/2023 16372 8003 SNOMED Comme nt: Recor ded 07/15 10:18 AM by Erin Zuleta Offic e Visit ; Berhane low; Dora queen ce: *; ; Not Available [facility] 3 02:28:10 872 codeine medicatio n rash moderate low 01/09/2023 2670 RxNorm CAROL BRIAN DENIS [facility] 3 12:43:50 Medications Name Sig Start Date [...] completed Not Available Not Available Not Available [employer] Ultra Test strips USE 1 STRIP DIRECTED [...] Available Flonase each nostril BID 01/22 completed 36666; Recorded 02/24/20 9:46AM by Ronaldo Mccarty (i sheridan through Ale Guo MD), Refill Request; Refill Quantity : 1; Each; Not Available Not Available Not Available MagOx 01/22 completed 0; Recorded 02/17/20 22 1:43PM by Ronaldo Mccarty, Office Visit; Not Available Not Available Not Available loperamid e bid 01/22 completed 0; Recorded 02/17/20 22 1:44PM by Ronaldo Mccarty, Office Visit; Not Available Not Available Not Available carvedilo l two times daily 01/22 completed 0; Recorded 02/17/20 22 1:44PM by Ronaldo Mccarty, Office Visit; Not Available Not Available Not Available Prograf two times daily active 0; Recorded 02/17/20 22 1:44PM by Ronaldo Mccarty, Office Visit; Not Available Not Available Not Available Vitamin D3 active 0; Recorded 02/17/20 22 1:42PM by Ronaldo Mccarty, Office Visit; Not Available Not Available Not Available Cozaar active 0; Recorded 02/17/20 22 1:43PM by Ronaldo Mccarty, Office Visit; Not Available Not Available Not Available Magnesium -Oxide qd 04/16 /2025 completed 0; Recorded 02/17/20 22 1:44PM by Ronaldo Mccarty, Office Visit; Not Available Not Available Not Available Vitamin qd 01/22 completed VO CH/jl; 10851; Recorded 08/17/20 18 4:59PM by Vicky Ngo LPN (Authori sheridan through Aaron Lo DO), Refill Request; Refill Quantity : 0; Not Available Not Available Not Available Vitamin-C active 0; Recorded 02/17/20 22 1:44PM by Ronaldo Mccarty, Office Visit; Not Available Not Available Not Available Myfortic QID 01/22 completed 0; Recorded 02/17/20 22 1:44PM by Ronaldo [...] Updated DateTime 3 157.48 cm 17.9 kg/m2 97545.0 5 g 98 % 98 % 78 /min 98.6 [degF] 150/80 mm[Hg] [facility] 3 12:43:24 Date Recorded Body height Body mass index (BMI) Body weight Body temperature Oxygen saturation Oxygen saturation in Arterial blood by Pulse oximetry Heart rate Systolic And Diastolic Provider Name and Address Organization Details Last Updated DateTime 5 157.48 cm 16.5 kg/m2 14002.3 1 g 98.6 [degF] 99 % 99 % 67 /min 145/78 mm[Hg] CAROL BRIAN DENIS [facility] 5 11:13:40 Date Recorded Body height Body mass index (BMI) Body weight Heart rate Respiratory rate Body temperature Oxygen saturation Oxygen saturation in Arterial blood by Pulse oximetry Systolic And Diastolic Provider Name and Address Organization Details Last Updated DateTime 157.48 cm 21.2 kg/m2 23310.7 1 g 70 /min 20 /min 98 [degF] 97 % 97 % 166/85 mm[Hg] SARAY SAGASTUME [facility] 14:10:51 Date Recorded Body height Body mass index (BMI) Body weight Oxygen saturation Oxygen saturation in Arterial blood by Pulse oximetry Heart rate Respiratory rate Body temperature Systolic And Diastolic Provider Name and Address Organization Details Last Updated DateTime 157.48 cm 20.7 kg/m2 71068.6 9 g 97 % 97 % 64 /min 17 /min 96.7 [degF] 142/70 mm[Hg] JAD MANNING [facility] 14:14:07 Social History Question Answer Notes LastModified by Organizat ion Details LastModified Time Tobacco Smoking Status Former Smoker CAROL DENIS [facility] 01/22/2025 11:21:29 At What Age Did You Start Smoking Tobacco? 18 Information not available 01/09/2023 How Much Tobacco Do You Smoke? 1 PPW [email or web address] Information not available 01/09/2023 Sex: Unknown Functional Status None recorded. Mental Status None recorded. Family History Relationship Description Onset Age of this Age Resolved Age Notes LastModified by Organization Details LastModified Time Father Myocardial infarction 78 [email or web address] Not available 11:20:41 Mother Diabetes mellitus [email or web address] Not available 01/07 11:20:53 Brother Myocardial infarction 36 [email or web address] Not available 11:21:13 Medical History Condition Response Coronary Artery Disease N Gout N Other N Kidney Stones N Blood Diseases N Hyperthyroidism N Blood Transfusion N Breast Cancer N COPD N Hypothyroidism N Lung Disease N Depression N Defects or Inherited Disease N Developmental [...] Problems N GI Problems N ADD/ADHD N Eating Disorder N Skin Problems N Anemia N Constipation N Mental Illness N Diabetes Y Ovarian Cancer N Bedwetting N Seizures/Epilepsy N Tuberculosis N Eczema N Abuse/Domestic Violence N Diverticulitis N Asthma N Reflux/GERD N Hepatitis Y [...] purified surface antigen) 0 completed Not Available [facility] 07/30/2025 13:19:42 Influenza, split virus, trivalent, PF 5 completed Not Available [facility] 07/30/2025 13:19:42 Pneumococcal conjugate PCV 13 5 completed Not Available [facility] 07/30/2025 13:19:42 Tdap 6 completed Not Available [facility] 07/30/2025 13:19:42 Influenza, split virus, trivalent, PF 8 completed Not Available [facility] 07/30/2025 13:19:42 Influenza, split virus, quadrivalent, PF 9 completed [facility] Available [facility] 07/30/2025 13:19:42 Hep B, adult 0 completed Not Available [facility] 07/30/2025 13:19:42 Hep A, adult 0 completed Not Available [facility] 07/30/2025 13:19:42 COVID-19, mRNA, LNP-S, PF, 100 mcg/0.5mL dose or 50 mcg/0.25mL dose 1 completed Not Available [facility] 07/30/2025 13:19:42 Influenza, split virus, quadrivalent, PF 1 completed Not Available [facility] 07/30/2025 13:19:42 COVID-19, mRNA, LNP-S, PF, 100 mcg/0.5mL dose or 50 mcg/0.25mL dose 1 completed Not Available [facility] 07/30/2025 13:19:42 COVID-19, mRNA, LNP-S, PF, 100 mcg/0.5mL dose or 50 mcg/0.25mL dose 2 completed Not Available [facility] 07/30/2025 13:19:42 Influenza, split virus, trivalent, preservative 4 completed Not Available [facility] 05/06/2023 02:27:37 Influenza, split virus, trivalent, preservative 7 completed Not Available [facility] 05/06/2023 02:27:37 Past Encounters Encounter ID Performer Location Encounter Start Date Encounter Closed Date Diagnosis/Indication Diagnosis SNOMED-CT Code Diagnosis ICD10 Code Diagnosis IMO Codes Diagnosis Note [id number] Ale Guo MD [facility] ([facility]) [address] [place] [address] 01/09/2023 12:36:10 01/09/2023 14:30:26 Dysuria 11919625 R30.0 pt left a u/a at the hospital this morning, we will have her do u/a here. [id number] Ale Guo MD [facility] ([facility]) [address] [place] [address] 01/22/2025 10:54:45 02/06/2025 06:13:31 Tobacco user 109430487 Z72.0 Screening colonoscopy 44 5332829 Z12.11 Declined, 01/22/25 Screening mammography 24 826689 Z12.31 Declined 01/22/25 Labile ess ential hypertension 227115992 I10 Viral hepatitis C 216136 07 B19.20 History of renal transplant 367416684 Z94.0 [id number] DO MARLENA MachadoC ([facility]) [address] [place] [address] 07/17/2025 13:38:56 07/22/2025 12:15:45 Post-discharge follow-up 521821571 Z09 656678 End stage renal failure on dialysis 780716246 N18.6 Z99.2 809844 Failed brad al transplant 796299388 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 f/u with pcp in 2 weeks. Closed fra cture of right wrist 9981575925 1762630 S62.101S 26010920 Closed fra cture of right orbital floor 3906909178 7567297 S02.31XD 75298917 End stage renal failure on dialysis 215235537 N18.6 Z99.2 462845 Closed fra cture of ilium 97534441 S32.302D 45666505 Face to face for manual wheel chair [...] Concerns Section Related Observation LastModified by Organization Maggie ls LastModified Time None Recorded Concern Status LastModified by Organization Details LastModified Time None Recorded Advance Directives Directive None Recorded Payers Insurance Date Sequence Insurance Name Policy Number Policy Pereira Covered Member ID Pereira Member ID Guarantor Name 07/17/2025 [place] - [facility] (MEDICARE) Yu Nunez [id number] Yu Nunez 07/17/2025 [place] [facility] (INSTITUTIONA L) Yu Jamesonon [id number] Yu Nunez 07/30/2025 1 [facility] (MEDICARE REPLACEMENT/A DVANTAGE - HMO) Yu Nunez [id number] Yu Nunez 01/22/2025 1 [place] Yu Nunez [id number] Yu Nunez 07/17/2025 2 [place] Yu Nunez [id number] Yu Nunez Notes Date Note Type Note [...] monday binta for appt, no fever/chills, Ale Guo MD [address] [place], [address], [facility] 01/09/2023 13:06:19 01/23/20 25 text/htm l Hypertension [...] of BP at home - they been szuk215/103, 194/90. I already took my BP meds [...] to do labs at the hospital.... Ale Guo MD [address] [place] [address], [address], [facility] 02/05/2025 16:00:26 07/17/20 25 text/htm l Hypertension IM/FMReported by PatientHPIFor associated symptoms, patient reportsfatigueandheadachesbut reportsno shortness of breath,no palpitations, andno tachycardia. For quality, patient reportshere for check-upandfatigue. For alleviating factors, patient reportsmedication. For self care, patient reportsnon-smoker.ROS as noted in the HPI new admit to snf after fall with mutiple fractures. Lauri Logan DO [address] [place] [address], [address], [facility] 07/20/2025 17:20:49 07/30/20 25 text/htm l Musculoskeletal PainReported by PatientHPIFor quality, patient reportssharp,tingling, anddull. For location, patient reportsright wrist. For duration, patient reportspresent <1 month. For timing, patient reportsconstantandsudden. Pt will be discharging to home and [...] ready to go home. DRAKE BAUTISTA PA-C [address] [place] [address], [address], [facility] - [facility] [place] 07/30/2025 16:35:23 OBGyn Episode No OBEpisode recorded.
--- NOTE | 2025-08-03 08:19 | W.ED.GENADLT ---
HPI - General Adult General: Chief complaint: General Medical Stated complaint: weakness Time Seen by Provider: 08/03/25 08:11 Source: patient Mode of arrival: ambulatory Limitations: no limitations History of Present Illness: 65-year-old female who has history end-stage renal disease on dialysis states she did miss her last dialysis appointment. States she also has not taken her blood pressure meds over the last few days either. She has had some vomiting and feeling generally weak and having hypertension. She states she has not taken any of her hypertension meds in 3 to 4 days. She denies any chest pain denies any headache Related Data Home Medications ?Medication ?Instructions ?Recorded ?Confirmed ascorbic acid (vitamin C) 500 mg 500 mg PO BID@0700,1730 09/13/20 07/10/25 tablet (Vitamin C) aspirin 81 mg chewable tablet 81 mg PO DAILY@2100 09/13/20 07/10/25 loperamide 2 mg capsule 2 mg PO TID PRN Diarrhea 09/13/20 07/10/25 magnesium oxide 400 mg (241.3 mg 400 mg PO DAILY 09/13/20 07/10/25 magnesium) tablet vitamin E acetate 134 mg (200 400 unit PO DAILY@0700 09/13/20 07/10/25 unit) capsule cholecalciferol (vitamin D3) 25 25 mcg PO DAILY 05/28/25 07/10/25 mcg (1,000 unit) capsule (Vitamin D3) mycophenolate sodium 180 mg 180 mg PO QID 05/28/25 07/10/25 tablet,delayed release vitamins with calcium 27 tab PO DAILY 05/28/25 07/10/25 no.72-iron 27 mg-folic acid 1 mg tablet ( Vitamins Plus Low Iron) tacrolimus 0.5 mg capsule, See Rx Instructions .Route .COMPLEX 05/28/25 07/10/25 immediate-release bumetanide 0.5 mg tablet See Rx Instructions .Route .COMPLEX 07/09/25 07/10/25 carvedilol 25 mg tablet 25 mg PO DAILY 07/09/25 07/10/25 clonidine 0.2 mg/24 hr weekly 1 patch topical Q7D 07/09/25 07/10/25 transdermal patch fluticasone propionate 50 1 spray intranasal BID 07/09/25 07/10/25 mcg/actuation nasal spray,suspension Previous Rx's ?Medication ?Instructions ?Recorded clonidine HCl 0.1 mg tablet 0.1 mg PO TID #90 tabs 06/02/25 docusate sodium 100 mg capsule 100 mg PO BID #60 caps 06/02/25 hydralazine 100 mg tablet 100 mg PO TID #90 tabs 06/02/25 prednisone 5 mg tablet 5 mg PO DAILY #30 tabs 06/02/25 erythromycin 5 mg/gram (0.5 %) eye 1 applic eye-right QID #1 g 07/15/25 ointment (3.5 gram tube) hydrocodone 5 mg-acetaminophen 325 1 tab PO Q6H PRN pain (scale score 07/15/25 mg tablet 7-10) #14 tabs losartan 50 mg tablet 100 mg (2 x 50 mg) PO Q24H #30 tabs 07/15/25 enoxaparin 30 mg/0.3 mL 30 mg (0.3 mL) SUBCUT DAILY Blood 07/18/25 subcutaneous syringe (Lovenox) Clot Prevention 35 days #10.5 mL Allergies Allergy/AdvReac Type Severity Reaction Status Date / Time cranberry Allergy Severe ALGY-Swell Verified 05/30/25 08:10 Lip/Tongue/Throat codeine Allergy ADR-Halluci Verified 04/15/25 14:55 nating nifedipine Allergy ALGY-Swell Verified 05/29/25 20:23 Lip/Tongue/Throat povidone-iodine (From Allergy ADR-Itching Verified 04/15/25 14:55 Betadine) simvastatin Allergy Unknown Verified 05/28/25 15:55 trazodone Allergy ADR-Vomitin Verified 04/15/25 14:55 g PFS ED PFSH: Medical History (Updated 08/03/25 @ 09:53 by Irving Sultana MD) Immunosuppressed status Moderate aortic valve stenosis Hepatitis C Post hysterectomy menopause Surgical History Transplant Arteriovenous fistula removed Renal transplant recipient Social History Smoking and tobacco/nicotine status: current every day tobacco/nicotine user Alcohol intake: never Substance/Drug Use: never Physical Exam Const: COMMON NORMALS: patient oriented x3 HENMT: COMMON NORMALS: normocephalic and atraumatic HEAD & SCALP: normocephalic and atraumatic Eye: COMMON NORMALS: Equal, round and reactive pupils present and EOMs intact bilaterally PUPIL: Yes Equal, round and reactive pupils present Neck/C-Spine: COMMON NORMALS: full ROM and supple Chest: COMMONS NORMALS: normal inspection of the chest and normal palpation of entire chest wall Resp: COMMON NORMALS: normal respiratory effort, No retractions, No use of accessory muscles and clear to auscultation bilaterally AUSCULTATION: clear to auscultation bilaterally Cardio: COMMON NORMALS: regular rate, regular rhythm and No murmurs present (Cardio) RATE: regular rate RHYTHM: regular rhythm GI: COMMON NORMALS: Normal to inspection, nondistended, normoactive bowel sounds present, Soft to palpation, non-tender and no masses PALPATION: Yes Soft to palpation Extremity: COMMON NORMALS: normal to inspection and full ROM Neuro: COMMON NORMALS: patient oriented x3, moves all extremities and no focal motor deficits Psych: COMMON NORMALS: mental status grossly normal, Normal thought process present and cooperative THOUGHT PROCESS: Normal thought process present Skin: COMMON NORMALS: no rashes or lesions noted and no wounds GENERAL SKIN EXAM: no rashes or lesions noted Course Vital Signs: Vital signs: Vital Signs Temperature 98.6 F 08/03/25 08:10 Pulse Rate 98 08/03/25 10:06 Respiratory Rate 16 08/03/25 08:10 Blood Pressure 232/121 08/03/25 10:06 Pulse Oximetry 98 08/03/25 10:06 Oxygen Delivery Me thod Room Air 08/03/25 09:48 MDM - General Adult Medical Decision Making Patient presents here with generalized weakness along with hypertension. Patient has chronic hypertension and is noncompliant with her meds. Her EKG here shows normal sinus rhythm heart rate [address] elevation QRS 77 QTc 377. Patient's labs at her baseline no severe hyperkalemia. Her blood pressure has improved here she is stable for discharge she is to get dialysis as scheduled and informed her she needs to take her meds as prescribed I did go over her labs and EKG with her she understands agrees to plan Medical Records I reviewed the patient's medical records. Lab Data I reviewed the patient's lab results. 08/03/25 08:20 08/03/25 08:20 Laboratory Results WBC 11.46 10^3/uL (3.29-11.43) H 08/03/25 08:20 RBC 3.21 10^6/uL (3.85-5.65) L 08/03/25 08:20 Hgb 10.30 g/dL (11.27-16.99) L 08/03/25 08:20 Hct 32.3 % (36-47) L 08/03/25 08:20 MCV 100.6 fl (85-98) H 08/03/25 08:20 MCH 32.1 pg (27-33) 08/03/25 08:20 MCHC 31.9 g/dL (30-55) 08/03/25 08:20 RDW 15.5 % (12.1-15.1) H 08/03/25 08:20 Plt Count 288 10^3/cmm (157-399) 08/03/25 08:20 MPV 9.7 fL (7.4-10.4) 08/03/25 08:20 Neut % (Auto) 87.3 % 08/03/25 08:20 Lymph % (Auto) 5.8 % 08/03/25 08:20 [place] % (Auto) 6.0 % 08/03/25 08:20 Eos % (Auto) 0.2 % 08/03/25 08:20 Baso % (Auto) 0.4 % 08/03/25 08:20 Neut # (Auto) 9.99 10^3/uL (1.8-7.7) H 08/03/25 08:20 Lymph # (Auto) 0.7 10^3/uL (0.8-4.8) L 08/03/25 08:20 [place] # (Auto) 0.7 10^3/uL (0.2-0.9) 08/03/25 08:20 Eos # (Auto) 0.0 10^3/uL (0.0-0.8) 08/03/25 08:20 Baso # (Auto) 0.1 10^3/uL (0.0-0.1) 08/03/25 08:20 Nucleated RBC % (auto) 0 % 08/03/25 08:20 Nucleated RBCs # 0.0 /100WBC 08/03/25 08:20 Sodium 135 mmol/L (136-145) L 08/03/25 08:20 Potassium 5.3 mmol/L (3.5-5.1) H 08/03/25 08:20 Chloride 96 mmol/L (98-107) L 08/03/25 08:20 Carbon Dioxide 23 mmol/L (22-29) 08/03/25 08:20 Anion Gap 21.3 (5-19) H 08/03/25 08:20 BUN 36 mg/dL (8-23) H 08/03/25 08:20 Creatinine 3.9 mg/dL (0.5-0.9) H 08/03/25 08:20 GFR Calculation 11.6 mL/min (90-130) L 08/03/25 08:20 Glucose 106 mg/dL (65-115) 08/03/25 08:20 Calculated Osmolality 289 mOsm/kg (285-295) 08/03/25 08:20 Calcium 9.3 mg/dL (8.5-10.5) 08/03/25 08:20 Total Bilirubin 0.4 mg/dL (0.15-1.2) 08/03/25 08:20 AST 22 U/L (0-32) 08/03/25 08:20 ALT 13 U/L (0-33) 08/03/25 08:20 Alkaline Phosphatase 144 U/L (35-105) H 08/03/25 08:20 Total Protein 6.5 g/dL (6.6-8.7) L 08/03/25 08:20 Albumin 4.2 g/dL (3.5-5.2) 08/03/25 08:20 Globulin 2.3 g/dL (1.3-4.6) 08/03/25 08:20 All radiology interpretation(s) finalized by discharge EKG Data EKG 1: I personally reviewed and interpreted this EKG as follows: EKG interpretation date: 08/03/25 EKG interpretation time: 08:21 Interpretation: nsr hr [address] elevation qrs 77 qtc 377 Discharge Plan Discharge Patient Disposition: Home Clinical Impression: Hypertension Condition: Stable Prescriptions: No Action loperamide 2 mg capsule 2 mg PO TID PRN (Reason: Diarrhea) magnesium oxide 400 mg (241.3 mg magnesium) tablet 400 mg PO DAILY ascorbic acid (vitamin C) [Vitamin C] 500 mg Tablet 500 mg PO BID@0700,1730 aspirin 81 mg Tablet,Chewable 81 mg PO DAILY@2100 vitamin E acetate 200 unit Capsule 400 unit PO DAILY@0700 tacrolimus 0.5 mg capsule See Rx Instructions .ROUTE .COMPLEX Rx Instructions: TAKE 3 CAPSULES BY MOUTH EVERY MORNING AND TAKE 3 CAPSULES BY MOUTH EVERY EVENING cholecalciferol (vitamin D3) [Vitamin D3] 25 mcg (1,000 unit) Capsule 25 mcg PO DAILY mycophenolate sodium 180 mg tablet,delayed release (DR/EC) 180 mg PO QID Vitamin Plus Low Iron 27 mg iron- 1 mg tablet 27 tab PO DAILY hydralazine 100 mg tablet 100 mg PO TID Qty: 90 0RF clonidine HCl 0.1 mg Tablet 0.1 mg PO TID Qty: 90 0RF docusate sodium 100 mg Capsule 100 mg PO BID Qty: 60 0RF prednisone 5 mg tablet 5 mg PO DAILY Qty: 30 0RF carvedilol 25 mg tablet 25 mg PO DAILY clonidine 0.2 mg/24 hr patch weekly 1 patch topical Q7D bumetanide 0.5 mg tablet See Rx Instructions .ROUTE .COMPLEX Rx Instructions: TAKE 1 TABLET BY MOUTH DAILY ON NON-DIALYSIS DAYS fluticasone propionate 50 mcg/actuation spray,suspension 1 spray INTRANASAL BID erythromycin 5 mg/gram (0.5 %) Ointment 1 applic eye-right QID Qty: 1 0RF losartan 50 mg Tablet 100 mg PO Q24H Qty: 30 2RF hydrocodone-acetaminophen 5-325 mg tablet 1 tab PO Q6H PRN (Reason: pain (scale score 7-10)) Qty: 14 0RF enoxaparin [Lovenox] 30 mg/0.3 mL syringe 30 mg SUBCUT DAILY 35 Days Qty: 10.5 0RF Discharge Orders: Discharge ED (Routine); Ordered 08/03/25 Ordered By: Irving Sultana Referrals: Ale Olivier MD [Primary Care Provider, Family Practice] - 4-7 days Discharge Diet: Advance as tolerated Discharge Activity: Resume usual activity Patient Instructions: Hypertension (ED) Print Language: Citizen Of [place] Coding Level of Care Code ED Loom Tuner for Tanya Neil
--- NOTE | 2025-08-03 08:21 | ECG_ITS ---
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
[2025-08-03 08:27] LABS: Hematocrit 32.3 % (36-47); Hemoglobin 10.30 g/dL (11.27-16.99); Mean Corpuscular HGB Conc 31.9 g/dL (30-55); Mean Corpuscular Hemoglobin 32.1 pg (27-33); Mean Corpuscular Volume 100.6 fl (85-98); Nucleated Red Blood Cells % 0 %; Platelet Count 288 10^3/cmm (157-399); Red Blood Count 3.21 10^6/uL (3.85-5.65); White Blood Count 11.46 10^3/uL (3.29-11.43)
[2025-08-03] MEDS: hyDRALAzine 20 mg/mL INJ 1 mL 10 MG IVP ×2 (08:28→09:22)
[2025-08-03 08:40] LABS: Alanine Aminotransferase 13 U/L (0-33); Albumin Level 4.2 g/dL (3.5-5.2); Alkaline Phosphatase 144 U/L (35-105); Anion Gap 21.3 (5-19); Aspartate Amino Transferase 22 U/L (0-32); Blood Urea Nitrogen 36 mg/dL (8-23); Calcium 9.3 mg/dL (8.5-10.5); Carbon Dioxide 23 mmol/L (22-29); Chloride 96 mmol/L (98-107); Creatinine Clr Calc Pharmacy 11.7575; Globulin 2.3 g/dL (1.3-4.6); Glucose 106 mg/dL (65-115); Osmolality Calculated 289 mOsm/kg (285-295); Potassium 5.3 mmol/L (3.5-5.1); Sodium 135 mmol/L (136-145); Total Protein 6.5 g/dL (6.6-8.7)
== END 2025-08-03 10:07 | disposition home or self-care (01) ==
PROVIDERS: Emergency Provider Emergency Medicine; PCP Family Medicine
DX: I12.0 Hypertensive chronic kidney disease with stage 5 chronic kidney disease or end stage renal disease (principal); N18.6 End stage renal disease; Z99.2 Dependence on renal dialysis; Z79.82 Long term (current) use of aspirin; Z72.0 Tobacco use
CPT/HCPCS: 36415; 80053; 85025; 93005; 96374; 96376; 99284; J0360

== ENCOUNTER → 2025-08-05 13:11 | Outpatient (BNVA) | payer OTHER, MEDICAID, SELFPAY | PROVIDERS: PCP Family Medicine; Visit Provider Physician Assistant | DX: S52.502D Unspecified fracture of the lower end of left radius, subsequent encounter for closed fracture with routine healing (principal); S32.309D Unspecified fracture of unspecified ilium, subsequent encounter for fracture with routine healing; S32.10XD Unspecified fracture of sacrum, subsequent encounter for fracture with routine healing; X58.XXXD Exposure to other specified factors, subsequent encounter | CPT/HCPCS: 72190; 73110 ==

== ENCOUNTER 2025-08-05 14:48 | Inpatient (IN) | payer OTHER, MEDICAID, SELFPAY ==
[2025-08-05] VITALS (15 sets, daily range): BP systolic 166–226; BP diastolic 84–114; PULSE 60–66; RESP 14–18; TEMP 36.2–36.6; O2SAT 93–96
--- NOTE | 2025-08-05 14:55 | XR_ITS ---
WS: [id number] Exam: XR chest 1V portable [id number] Date/Time of Exam: 08/05/2025 3:04 PM Reason For Exam: chest pain Comparison 07/10/2025. There is cardiac enlargement with pulmonary vascular congestion and bibasal pleural effusions suggesting chronic CHF. Effusions have increased since the last study. The mediastinum is normal in contour. No pneumothorax. A right-sided double-lumen dialysis catheter is in place in satisfactory location. XR/XR chest 1V portable [id number] IMPRESSION: 1. Cardiac enlargement with signs of chronic CHF and increasing bibasal pleural effusions.
--- NOTE | 2025-08-05 15:02 | ECG_ITS ---
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 Measurements Intervals [place] Rate: 65 P: 39 NE: 148 QRS: 18 QRSD: 80 T: 54 QT: 454 QTc: 472 Interpretive Statements SINUS RHYTHM Compared to ECG 08/03/2025 08:21:06 No significant changes Electronically Signed On 08-07-2025 18:53:40 CDT by Jae Murillo M.D. [id number]
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
[2025-08-05] MEDS: hyDRALAzine 20 mg/mL INJ 1 mL 10 MG IVP (15:19)
[2025-08-05 15:28] LABS: Hematocrit 33.2 % (36-47); Hemoglobin 10.60 g/dL (11.27-16.99); Mean Corpuscular HGB Conc 31.9 g/dL (30-55); Mean Corpuscular Hemoglobin 31.8 pg (27-33); Mean Corpuscular Volume 99.7 fl (85-98); Nucleated Red Blood Cells % 0 %; Platelet Count 285 10^3/cmm (157-399); Red Blood Count 3.33 10^6/uL (3.85-5.65); White Blood Count 7.53 10^3/uL (3.29-11.43)
[2025-08-05 15:43] LABS: Troponin(5th) Baseline 60 ng/L (0-10)
[2025-08-05 15:58] LABS: Alanine Aminotransferase 13 U/L (0-33); Albumin Level 4.1 g/dL (3.5-5.2); Alkaline Phosphatase 147 U/L (35-105); Anion Gap 17.3 (5-19); Aspartate Amino Transferase 19 U/L (0-32); Blood Urea Nitrogen 22 mg/dL (8-23); Calcium 9.1 mg/dL (8.5-10.5); Carbon Dioxide 27 mmol/L (22-29); Chloride 95 mmol/L (98-107); Creatinine Clr Calc Pharmacy 19.8657; Globulin 2.5 g/dL (1.3-4.6); Glucose 130 mg/dL (65-115); Osmolality Calculated 285 mOsm/kg (285-295); Potassium 4.3 mmol/L (3.5-5.1); Sodium 135 mmol/L (136-145); Total Protein 6.6 g/dL (6.6-8.7)
[2025-08-05 16:33] LABS: NT Pro B Type Natriuretic Pept > 70000 pg/mL (0-125)
--- NOTE | 2025-08-05 17:03 | ECG_ITS ---
[facility] 2025[facility]05 Pat Name: Yu Nunez Department: Room: Gender: Female Cardiovascular Surgical Tech: : 1960 Requested By: Eliana Yang Order Number: [id number] Reading MD: LILA CLAROS Measurements Intervals [place] Rate: 63 P: 29 GA: 151 QRS: 15 QRSD: 82 T: 55 QT: 456 QTc: 467 Interpretive Statements SINUS RHYTHM Compared to ECG 08/05/2025 15:02:01 No significant changes Electronically Signed On 08-09-2025 21:13:52 CDT by LILA CLAROS [email or web address]
--- OUTSIDE RECORDS SUMMARY | 2025-08-05 17:03 | XMS_ITS | Continuity of Care Document ---
Author Organization [employer] ([facility]) Address [address] [place] [address] Insurance Providers Payer Plan Claims Address Claims Phone Policy Number Group Number Relation Employer Guarantor Name Guarantor Guarantor Address Guarantor Phone [employer] ADV [id number] Self Yu Nunez 1960 [id number], [place] [address] [place] [employer] Dual Comp [id number] Self Yu Nunez 1960 [address], [place] [address] [employer] ([facility]) - TRANS PLANT [address] [address], [place] [address] tel:[id number] [phone] Self Yu Nunez 1960 [address], [place] [address] Problems Condition ICD9 code ICD10 code SNOMED [...] Nonrheumatic aortic (valve) stenosis I35.0 07/15/2025 Active jail (current) use of aspirin Z79.82 07/15/2025 Active Immunodeficiency, unspecified D84.9 07/15/2025 Active Kidney transplant status Z94.0 07/15/2025 Active 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 07/15/2025 Active 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 Refere nce Range Tuberculosis reaction wheal[ 59211-0] Tuberculosis reaction wheal [69805-7] 07/17/2025 05:00 PM 0 mm NEG Allergies, adverse reactions, alerts Substance Reaction Date Status Type codeine sulfate 07/15/2025 Non Drug isosorbide (bulk) 07/15/2025 Non Cristofer g nifedipine 07/15/2025 Non Drug povidone-iodine 07/15/2025 Non Drug simvastatin 07/15/2025 Non Drug trazodone 07/15/2025 Non Drug Cranberry 07/15/2025 Non Drug Immunizations Vaccine Route Date [...] give at 9pm oral 1.0 07/31 Active bumetanide 1 mg tablet (bumetanide) 1 tab, oral, Once A Day, give on NON-DIALYSIS days oral 1.0 1.0 d 07/31 Active carvedilol 25 mg tablet (carvedilol) 1 tab, oral, Once A Day oral 1.0 1.0 d 07/31 Active cholecalciferol (vitamin D3) 25 mcg (1,000 unit) tablet (cholecalcifero l (vitamin D3)) 1 tab, oral, Once A Day oral 1.0 1.0 d 07/31 Active clonidine HCl 0.2 mg tablet (clonidine HCl) 1 tab, oral, Twice A Day, TI for clonidine transdermal oral 1.0 12.0 h 07/31 Active docusate sodium 100 mg tablet (docusate sodium) 1 tab, oral, Twice A Day oral 1.0 12.0 h 07/31 Active erythromycin 5 mg/gram (0.5 %) ointment (erythromycin) 1 lance, right eye, Four Times A Day, 5 day auto stop per TI 1.0 6.0 h 07/20 Active fluticasone propionate 50 mcg/actuation spray,suspensio n (fluticasone propionate) 1 spray, nasal, Twice A Day, both nares nasal 1.0 12.0 h 07/31 Active hydralazine 100 mg tablet (hydralazine) 1 tab, oral, Three Times A Day oral 1.0 8.0 h 07/31 Active hydrocodone-ilana taminophen 5-325 mg tablet (hydrocodone-ac etaminophen) 1 tab, oral, Every 6 Hours - PRN, exempt R52, for pain oral 1.0 6.0 h 07/31 Active loperamide 2 mg tablet (loperamide) 1 tab, oral, Three Times A Day - PRN, for diarrhea oral 1.0 8.0 h 07/31 Active losartan 100 mg tablet (losartan) 1 tab, oral, Once A Day oral 1.0 1.0 d 07/31 Active magnesium oxide 400 mg (241.3 mg magnesium) tablet (magnesium oxide) 1 tab, oral, Once A Day, TI for magnesium oral 1.0 1.0 d 07/31 Active mycophenolate sodium 180 mg tablet,delayed release (DR/EC) (mycophenolate sodium) 1 tab, oral, Four Times A Day oral 1.0 6.0 h 07/31 Active prednisone 5 mg tablet (prednisone) 1 tab, oral, Once A Day oral 1.0 1.0 d 07/31 Active tacrolimus 0.5 mg capsule (tacrolimus) [...] us 1.0 1.0 d 08/22 Active Afluria 9050-5953 (3yr up)(PF) (flu vac no4759-40 36mos up(pf)) 45 mcg (15 mcg x 3)/0.5 m syringe (Afluria 3400-9588 (3yr up)(PF) (flu vac [id number] 36mos up(pf))) 0.5ml, intramuscular , Once - One Time intramuscu lar 1.0 07/22 Active Afluria 0943-7309 (3yr up)(PF) (flu vac [id number] 36mos up(pf)) 45 mcg (15 mcg x 3)/0.5 m syringe (Afluria (3yr up)(PF) (flu vac [id number] 36mos up(pf))) 0.5ml, intramuscular , Once - One Time intramuscu lar 1.0 07/22 Active Tubersol (tuberculin ppd) 5 tub. unit /0.1 mL solution (Tubersol (tuberculin ppd)) 0.1ml, intradermal, Once - One Time, Administer on the day shift intraderma l 1.0 07/25 Active Afluria 9850-7336 (3yr up)(PF) (flu vac [id number] 36mos up(pf)) 45 mcg (15 mcg x 3)/0.5 m syringe (Afluria (3yr up)(PF) (flu vac po5254-41 36mos up(pf))) 0.5ml, intramuscular , Once - [...] Vital Signs Date Vital Result Comment 07/15/2025 06:36 PM Body Weight (55823-9) 116.4 [lb_av ] Body Mass Index (14437-9) 21.29 kg/m2 07/15/2025 03:36 PM Temperature (8310-5) 98 [degF] Oxygen Saturation (59635-2) 95 % Respiratory Rate (9279-1) 20 /min Heart Rate (8867-4) 63 /min Blood Pressure Systolic (8480-6) 170 mm[Hg] Blood Pressure Diastolic (8462-4) 81 mm[Hg] Body Height (8302-2) 62 [in_us] 07/16/2025 03:41 PM Body Weight (62480-1) 116 [lb_av] Body Mass Index (47893-9) 21.21 kg/m2 07/16/2025 11:38 AM Body Height (8302-2) 62 [in_us] 07/16/2025 11:37 AM Temperature (8310-5) 97.6 [degF] Oxygen Saturation (18769-9) 96 % Respiratory Rate (9279-1) 16 /min Heart Rate (8867-4) 60 /min Blood Pressure Systolic (8480-6) 136 mm[Hg] Blood Pressure Diastolic (8462-4) 78 mm[Hg] 07/16/2025 06:49 PM Temperature (8310-5) 98.2 [degF] Oxygen Saturation (76219-1) 98 % Respiratory Rate (9279-1) 18 /min Heart Rate (8867-4) 73 /min Blood Pressure Systolic (8480-6) 142 mm[Hg] Blood Pressure Diastolic (8462-4) 78 mm[Hg] 07/17/2025 03:53 PM Body Weight (60385-6) 116.4 [lb_av ] Body Mass Index (14566-9) 21.29 kg/m2 07/17/2025 12:06 PM Temperature (8310-5) 98 [degF] Oxygen Saturation (35315-3) 97 % Respiratory Rate (9279-1) 20 /min Heart Rate (8867-4) 70 /min Blood Pressure Systolic (8480-6) 166 mm[Hg] Blood Pressure Diastolic (8462-4) 85 mm[Hg] 07/17/2025 07:22 PM Temperature (8310-5) 96.7 [degF] Oxygen Saturation (70749-3) 93 % Respiratory Rate (9279-1) 18 /min Heart Rate (8867-4) 66 /min Blood Pressure Systolic (8480-6) 135 mm[Hg] Blood Pressure Diastolic (8462-4) 66 mm[Hg] 07/18/2025 04:57 PM Body Weight (41481-5) 115.7 [lb_av ] Body Mass Index (68989-8) 21.16 kg/m2 07/18/2025 11:59 AM Body Weight (49185-9) 116 [lb_av] Body Mass Index (22100-0) 21.21 kg/m2 07/18/2025 08:15 PM Temperature (8310-5) 98.7 [degF] Oxygen Saturation (50454-0) 93 % Respiratory Rate (9279-1) 16 /min Heart Rate (8867-4) 72 /min Blood Pressure Systolic (8480-6) 133 mm[Hg] Blood Pressure Diastolic (8462-4) 59 mm[Hg] 2025 08:29 AM Temperature (8310-5) 97.5 [degF] Oxygen Saturation (11535-3) 95 % Respiratory Rate (9279-1) 18 /min Heart Rate (8867-4) 64 /min Blood Pressure Systolic (8480-6) 146 mm[Hg] Blood Pressure Diastolic (8462-4) 73 mm[Hg] 2025 04:15 PM Body Weight (44161-2) 117.8 [lb_av ] Body Mass Index (55973-9) 21.54 kg/m2 2025 10:06 PM Temperature (8310-5) 98 [degF] Oxygen Saturation (71250-0) 96 % Respiratory Rate (9279-1) 18 /min Heart Rate (8867-4) 70 /min Blood Pressure Systolic (8480-6) 126 mm[Hg] Blood Pressure Diastolic (8462-4) 88 mm[Hg] 07/20/2025 07:55 AM Temperature (8310-5) 97.8 [degF] Oxygen Saturation (12809-0) 92 % Respiratory Rate (9279-1) 18 /min Heart Rate (8867-4) 71 /min Blood Pressure Systolic (8480-6) 138 mm[Hg] Blood Pressure Diastolic (8462-4) 79 mm[Hg] 07/20/2025 09:44 PM Temperature (8310-5) 97 [degF] Oxygen Saturation (65946-5) 97 % Respiratory Rate (9279-1) 16 /min Heart Rate (8867-4) 78 /min Blood Pressure Systolic (8480-6) 132 mm[Hg] Blood Pressure Diastolic (8462-4) 67 mm[Hg] 07/21/2025 12:48 PM Temperature (8310-5) 97.8 [degF] Oxygen Saturation (00027-5) 97 % Respiratory Rate (9279-1) 18 /min Heart Rate (8867-4) 69 /min Blood Pressure Systolic (8480-6) 109 mm[Hg] Blood Pressure Diastolic (8462-4) 61 mm[Hg] 07/21/2025 08:36 PM Temperature (8310-5) 98.6 [degF] Oxygen Saturation (96499-5) 92 % Respiratory Rate (9279-1) 19 /min Heart Rate (8867-4) 81 /min Blood Pressure Systolic (8480-6) 146 mm[Hg] Blood Pressure Diastolic (8462-4) 60 mm[Hg] 07/22/2025 07:42 AM Temperature (8310-5) 97.6 [degF] Oxygen Saturation (04740-4) 93 % Respiratory Rate (9279-1) 19 /min Heart Rate (8867-4) 72 /min Blood Pressure Systolic (8480-6) 186 mm[Hg] Blood Pressure Diastolic (8462-4) 84 mm[Hg] 07/22/2025 07:22 PM Temperature (8310-5) 96.7 [degF] Oxygen Saturation (15087-9) 98 % Respiratory Rate (9279-1) 16 /min Heart Rate (8867-4) 85 /min Blood Pressure Systolic (8480-6) 115 mm[Hg] Blood Pressure Diastolic (8462-4) 64 mm[Hg] 07/23/2025 09:36 AM Blood Pressure Systolic (8480-6) 1 38 mm[Hg] Blood Pressure Diastolic (8462-4) 79 mm[Hg] Body Weight (31408-5) 118.8 [lb_av] Body Mass Index (86067-3) 21.73 kg/m2 07/23/2025 09:35 AM Temperature (8310-5) 98.1 [degF] Oxygen Saturation (48464-4) 93 % Respiratory Rate (9279-1) 16 /min Heart Rate (8867-4) 70 /min Blood Pressure Systolic (8480-6) 174 mm[Hg] Blood Pressure Diastolic (8462-4) 80 mm[Hg] 07/23/2025 07:25 PM Temperature (8310-5) 99.1 [degF] Oxygen Saturation (51009-1) 94 % Respiratory Rate (9279-1) 18 /min Heart Rate (8867-4) 71 /min Blood Pressure Systolic (8480-6) 143 mm[Hg] Blood Pressure Diastolic (8462-4) 65 mm[Hg] 07/24/2025 07:00 AM Temperature (8310-5) 98.9 [degF] Oxygen Saturation (46370-4) 90 % Respiratory Rate (9279-1) 16 /min Heart Rate (8867-4) 73 /min Blood Pressure Systolic (8480-6) 194 mm[Hg] Blood Pressure Diastolic (8462-4) 92 mm[Hg] 07/24/2025 08:52 PM Temperature (8310-5) 98.4 [degF] Oxygen Saturation (08611-0) 97 % Respiratory Rate (9279-1) 16 /min Heart Rate (8867-4) 66 /min Blood Pressure Systolic (8480-6) 126 mm[Hg] Blood Pressure Diastolic (8462-4) 74 mm[Hg] 07/25/2025 11:30 AM Body Weight (50105-5) 113.5 [lb_av ] Body Mass Index (39684-4) 20.76 kg/m2 07/25/2025 12:08 PM Temperature (8310-5) 97.4 [degF] Oxygen Saturation (71530-4) 93 % Respiratory Rate (9279-1) 14 /min Heart Rate (8867-4) 64 /min Blood Pressure Systolic (8480-6) 129 mm[Hg] Blood Pressure Diastolic (8462-4) 68 mm[Hg] 07/25/2025 06:58 PM Temperature (8310-5) 98.3 [degF] Oxygen Saturation (16558-1) 94 % Respiratory Rate (9279-1) 16 /min Heart Rate (8867-4) 70 /min Blood Pressure Systolic (8480-6) 127 mm[Hg] Blood Pressure Diastolic (8462-4) 70 mm[Hg] 07/26/2025 10:09 AM Oxygen Saturation (95805-4) 95 % Blood Pressure Systolic (8480-6) 171 mm[Hg] Blood Pressure Diastolic (8462-4) 72 mm[Hg] 07/26/2025 10:08 AM Temperature (8310-5) 97.8 [degF] Respiratory Rate (9279-1) 19 /min Heart Rate (8867-4) 64 /min 07/26/2025 06:38 PM Temperature (8310-5) 98.1 [degF] Respiratory Rate (9279-1) 17 /min Heart Rate (8867-4) 70 /min Blood Pressure Systolic (8480-6) 138 mm[Hg] Blood Pressure Diastolic (8462-4) 70 mm[Hg] 07/27/2025 06:57 AM Temperature (8310-5) 97.5 [degF] Respiratory Rate (9279-1) 17 /min Heart Rate (8867-4) 65 /min Blood Pressure Systolic (8480-6) 176 mm[Hg] Blood Pressure Diastolic (8462-4) 80 mm[Hg] 07/27/2025 06:58 AM Oxygen Saturation (60648-3) 94 % 07/27/2025 10:19 PM Temperature (8310-5) 98 [degF] Oxygen Saturation (77254-9) 93 % Respiratory Rate (9279-1) 17 /min Heart Rate (8867-4) 62 /min Blood Pressure Systolic (8480-6) 122 mm[Hg] Blood Pressure Diastolic (8462-4) 65 mm[Hg] 07/28/2025 08:35 PM Temperature (8310-5) 98.2 [degF] Oxygen Saturation (39890-9) 96 % Respiratory Rate (9279-1) 16 /min Heart Rate (8867-4) 78 /min Blood Pressure Systolic (8480-6) 168 mm[Hg] Blood Pressure Diastolic (8462-4) 84 mm[Hg] 07/28/2025 05:34 PM Temperature (8310-5) 97.7 [degF] Oxygen Saturation (42664-1) 96 % Respiratory Rate (9279-1) 18 /min Heart Rate (8867-4) 80 /min Blood Pressure Systolic (8480-6) 174 mm[Hg] Blood Pressure Diastolic (8462-4) 69 mm[Hg] 07/29/2025 08:29 AM Temperature (8310-5) 100.3 [degF] Oxygen Saturation (84260-8) 90 % Respiratory Rate (9279-1) 14 /min Heart Rate (8867-4) 79 /min Blood Pressure Systolic (8480-6) 187 mm[Hg] Blood Pressure Diastolic (8462-4) 91 mm[Hg] 07/29/2025 07:50 PM Temperature (8310-5) 96.7 [degF] Oxygen Saturation (39367-9) 97 % Respiratory Rate (9279-1) 17 /min Heart Rate (8867-4) 64 /min Blood Pressure Systolic (8480-6) 142 mm[Hg] Blood Pressure Diastolic (8462-4) 70 mm[Hg] 07/30/2025 12:51 PM Temperature (8310-5) 97.5 [degF] Oxygen Saturation (08013-4) 93 % Respiratory Rate (9279-1) 18 /min [...]
--- OUTSIDE RECORDS SUMMARY | 2025-08-05 17:03 | XMS_ITS | Encounter Summary ---
Author Organization [facility] Address [address] [address] Phone Care Team Providers Care Diplomatic Interpreter/Translator Name Role Phone Unavailable Primary Care Provider Unavailabl e Reason for Referral * Consultation (Routine) - Closed Specialty Diagnoses / Procedures Referred By Contac t Referred To Contact Nephrology Diagnoses Kidney transplant status Pancreas transplant status (HCC) Chronic kidney disease, Stage V (HCC) Reddy Veliz MD [address] [facility] [address] [place] [address] Phone: tel: fax: Jerilyn Mike MD [address] [address] Phone: tel: fax: Referral ID Status Reason Start Date Expiration Date V isits Requested Visits Authorized [id number] Closed Consult and Treat 05/05/2025 05/05/2026 1 1 Encounter Details Date Type Department Care Team (Latest Contact Info) Description 05/05/2025 Transcribe Orders [facility] [address] [address] Reddy Veliz MD [address] [facility] [id number] [place] [address] Chronic kidney disease, Stage V [...]
--- OUTSIDE RECORDS SUMMARY | 2025-08-05 17:03 | XMS_ITS | Encounter Summary ---
Author Organization [facility] Address [address] [address] Phone Care Team Providers Care Special Effects Specialist Name Role Phone Unavailable Primary Care Provider Unavailabl e Encounter Details Date Type Department Care Team (Late st Contact Info) Description 07/28/2025 [facility] [address] [facility] [address] [place] [address] Dana Latif NP [address] [address] End stage renal disease; Dependence on [...] Dialysis Note - Dana Latif NP - 07/28/2025 12:00 AM CDT BASIC NOTE Patient: Yu Nunez : 1960 Note Author: DANA LATIF NP Service Date: 07/28/2025 This patient was personally seen [id number] for a basic visit as part of routine monthly dialysis care for end stage renal disease. Attending Firing Pin Gauger: ORLANDO RABAGO MD Dialysis Location: [facility] Schedule: Shift: 1 OVERVIEW COMMENTS: Bp elevated: reviewed and adjusted medications. HOME MEDICATIONS COMMENTS: See blood pressure notes above Current [facility] Medications ASA 81 tablet Take 1 tablet by mouth once a day. bumetanide 0.5 mg tablet 1 tablet by mouth once a day. [on non-dialysis days] carvedilol 25 mg tablet Take 1 tablet by mouth once a day. [take with food.] clonidine HCl 0.2 mg tablet Take 1 tablet by mouth twice a day. [Hold on morning of dialysis] docusate sodium 100 mg capsule Take 1 capsule by mouth twice a day. erythromycin 5 mg/gram (0.5 %) ointment Apply 1 a small amount into right eye four times a day. fluticasone propionate 50 mcg/actuation spray,suspension [place] 1 spray into both nostrils once a day. hydralazine 100 mg tablet Take 1 tablet by mouth three times a day. hydrocodone-acetaminophen 5-325 mg tablet Take 1 tablet by mouth every six hours as needed for pain. loperamide 2 mg capsule Take 1 by mouth three times a day as needed. losartan 100 mg tablet Take 1 tablet by mouth once a day. MagOx 400 mg (241.3 mg magnesium) tablet Take 1 tablet by mouth once a day. Myfortic 180 mg tablet,delayed release (DR/EC) Take 1 tablet by mouth four times a day. prednisone 5 mg tablet Take 1 tablet by mouth once a day. Vitamin Plus Low Iron tablet Take 1 tablet by mouth once a day. tacrolimus 0.5 mg capsule Take 3 capsule by mouth twice a day. [TAKE 3 CAPS DAILY AND 3 CAPS EVERY EVENING] Vitamin C 500 mg tablet Take 1 tablet by mouth twice a day. Vitamin D3 25 mcg (1,000 unit) capsule Take 1 capsule by mouth once a day. vitamin E (dl, acetate) 180 mg (400 unit) capsule Take 1 capsule by mouth once a day as needed. Current [facility] Allergies Allergen: amlodipine Reaction: Unknown Allergen: CODEINE Reaction: Shortness of breath Swelling Severity: Severe Severe Allergen: IODINE Reaction: Skin Rash Severity: Severe Allergen: isosorbide Reaction: Unknown Allergen: simvastatin Reaction: Abdominal Pain Severity: Moderate Allergen: trazodone Reaction: Nausea/Vomiting Lost Consciousness Severity: Moderate Severe DIALYSIS PRESCRIPTION Treatment Data Treatment Date: 07/28/2025 started at: 6:33 AM Dialysate / Machine Temp (prescribed): 37.0*C Dialysate / Machine Temp (actual): 37.0*C BFR (prescribed): 400 BFR (actual): 400 DFR (prescribed): Manual 800 DFR (actual): 800 Prescribed Time: 03:30 EDW (kg): 51.3 Dialyzer: 160NRe Optiflux Dialysate: 3.0 K, 2.5 Ca, 1.0 Mg, 100 Dextrose (G3251) Sodium: 138 Bicarb: 32 Pre Dialysis Vitals Pre BP Sit: 196/99 Pre Wt (kg): 55.4 EDW Deviation (kg): 4.1 Temp: 97.5*F Current Dialysis Vitals BP Sit: 175/103 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 Pulse: 72 TREATMENT MEDICATIONS ORDERS Heparin Sodium (Porcine) 1,000 [...] Sucrose (Venofer) 100 mg IVP Every Treatment 07/21/2025 - 08/11/2025 Mircera 75 mcg IVP Every 4 weeks During Dialysis 07/14/2025 - 07/13/2026 Vitamin D (Calcitriol) Oral 0.5 mcg ORAL Every Treatment 06/18/2025 - 06/17/2026 BP AND FLUID ASSESSMENT COMMENTS: See above Post BP Sit 184/97 - 07/25/2025 163/94 - 07/21/2025 129/105 - 07/18/2025 Post Wt (kg) 51.6 - 07/25/2025 52.1 - 07/21/2025 52.6 - 07/18/2025 EDW (kg) 51.3 - 07/25/2025 51.3 - 07/21/2025 51.3 - 07/18/2025 Deviation (kg) 0.3 - 07/25/2025 0.8 - 07/21/2025 1.3 - 07/18/2025 ADEQUACY ASSESSMENT spKt/V (Daugirdas II) 1.65 (07/18/25) 1.85 (07/09/25) eKdrt/V 1.40 (07/18/25) 1.57 (07/09/25) % Urea Reduction 75 (07/18/25) 80 (07/09/25) 78 (06/11/25) BUN 36 (07/18/25) 56 (07/09/25) 50 (06/11/25) BUN Post Dialysis 9 (07/18/25) 11 (07/09/25) 11 (06/11/25) Creatinine 4.06 (07/09/25) 3.88 (06/11/25) 4.37 (06/04/25) Bicarbonate (CO2) 23 (07/09/25) 24 (06/11/25) 22 (06/04/25) Sodium 135 (07/09/25) 137 (06/11/25) 127 (06/04/25) ACCESS ASSESSMENT CVCatheter Tunneled Neck Active (In Use) - 06/02/2025 Placed - 05/29/2025 ANEMIA ASSESSMENT Hemoglobin 8.5 (07/16/25) 9.2 (07/09/25) 9.0 (07/02/25) Iron Saturation (TSat) 17 (07/09/25) 18 (06/11/25) 43 (06/04/25) Ferritin 284 (06/11/25) 135 (06/04/25) Iron 41 (07/09/25) 42 (06/11/25) 90 (06/04/25) TIBC 235 (07/09/25) 229 (06/11/25) 208 (06/04/25) MCV 102 (07/09/25) 98 (06/11/25) 95 (06/04/25) Folate 12.8 (06/04/25) Vitamin B-12 1,333 (06/04/25) Platelets 218 (07/09/25) 244 (06/11/25) 233 (06/04/25) BMM ASSESSMENT Calcium 8.4 07/09/25 7.6 06/11/25 7.6 06/04/25 Corrected Calcium 8.9 07/09/25 8.3 06/11/25 8.6 06/04/25 Phosphorus 4.9 07/09/25 3.9 06/11/25 4.4 06/04/25 Calcium Phosphorus Product 41 07/09/25 30 06/11/25 33 06/04/25 PTH 892 06/11/25 913 06/04/25 Vitamin D, 25-OH, Total 25.1 06/04/25 Magnesium 2.0 06/11/25 1.9 06/04/25 Alkaline Phosphatase 60 06/11/25 45 06/04/25 Aluminum ?5 06/11/25 ?5 06/04/25 NUTRITION ASSESSMENT Albumin 3.4 07/09/25 3.1 06/11/25 2.8 06/04/25 Potassium 4.5 07/09/25 5.3 06/11/25 4.2 06/04/25 eNPCR 0.71 07/18/25 0.98 07/09/25 ADDITIONAL LABS WBC 12.84 (07/09/25) 10.70 (06/11/25) 15.37 (06/04/25) Hepatitis B Surface Ab ?10 (06/04/25) ALT (SGPT) 15 (05/26/25) 9 (04/24/25) AST (SGOT) 17 (05/26/25) 15 (04/24/25) Signed by: DANA LATIF NP on 07/28/2025 at 09:12:11 AM Transcribed by: DANA LATIF NP on 07/28/2025 at 09:12:11 AM documented in this encounter Plan of Treatment Not on file documented as of this encounter Visit Diagnoses Diagnosis End stage renal disease Dependence on renal dialysis documented in this encounter
--- OUTSIDE RECORDS SUMMARY | 2025-08-05 17:03 | XMS_ITS | Clinical Summary ---
Author Organization [facility] Facility Address [address] [place] [id number] Care Team Providers Care Siebel Crm Developer Name Role Phone Unavailable Primary Care [...] Encounters Date Type Department Care Team Description 08/05/2025 Treatment [facility], [facility] [address] [place] [address] Jerilyn Mike MD End stage renal disease; Dependence on renal dialysis 07/30/2025 Orders Only [place] [facility], [facility] [address] [place] [address] Jerilyn Mike MD 07/28/2025 [facility], [facility] [address] [place] [address] Krupa Latif NP End stage renal disease; Dependence on renal dialysis 07/18/2025 Orders Only [place] [facility], [facility] [address] [place] [address] Jerilyn Mike MD 07/16/2025 Orders Only [facility], [facility] [address] [place] [address] Jerilyn Mike MD 07/16/[address] [place] [address] Nephrology [facility], [facility] [address] [place] [address] Cat Leon NP End stage renal disease; Dependence on renal dialysis 07/09/2025 Orders Only [place] [facility], [facility] [address] [place] [address] Ollie Benito Ordering 07/09/[address] [place] [address] [facility] [facility] [address] [place] [address] Krupa Latif NP End stage renal disease; Dependence on renal dialysis 06/30/[address] [place] [address] [facility], [facility] [address] [place] [address] Jerilyn Mike MD End stage renal disease; Dependence on renal dialysis 06/25/[address] [place] [address] [facility], [facility] [address] [place] [address] Krupa Latif NP End stage renal disease; Dependence on renal dialysis 06/16/[address] [place] [address] [facility], [facility] [address] [place] [address] Krupa Latif NP End stage renal disease; Dependence on renal dialysis 06/11/[address] [place] [address] 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) 05/28/2025 Documentation Only [place] [facility], [facility] [address] [place] [address] Ayla Mueller MA 05/28/2025 Documentation Only [facility], [facility] [address] [place] [address] She Barajas MA 05/05/2025 Office Communication [facility], [facility] [address] [place] [address] Jerilyn Mike MD 05/05/2025 Transcribe Orders [facility], [facility] [address] [place] [address] Reddy Veliz MD Chronic kidney [...] Priority Date/Time Associated Diagnosis Comments HEMATOLOGY Routine 07/30/2025 [facility] LAB RESULTS Routine 07/18/2025 HD KINETICS Routine 07/18/2025 POST CHEMISTRY Routine 07/18/2025 CHEMISTRY Routine 07/18/2025 HEMATOLOGY Routine 07/16/2025 SPECTRA OLLIE LAB RESULTS Routine 07/09/2025 HD KINETICS Routine 07/09/2025 POST CHEMISTRY Routine 07/09/2025 CHEMISTRY Routine 07/09/2025 IMMUNO CHEMISTRY Routine 07/09/2025 HEMATOLOGY Routine 07/09/2025 HEMATOLOGY Routine 07/02/2025 HEMATOLOGY Routine 06/25/2025 HEMATOLOGY [...] PANEL (CMP) (EXTERNAL LAB ENTRY) Routine 05/26/2025 from Last 3 Months Results * (ABNORMAL) HEMATOLOGY (07/30/2025) Only the most recent of8 resultswithin the time period is included. Hemoglobin 9.7(L) 12.0 - 16.0 g/dL [email or web address] Hemoglobin x 3 29.1(L) 36.0 - 48.0 % [employer] [facility] 07/30/2025 07/31/2025 10: 59 AM CDT Narrative SPECTRAE - 07/31/2025 Unless otherwise specified, test(s) performed at: [facility], [address] [place] [address] SAUSAGE STUFFER: Baudilio Otoole M.D. For any questions, please call customer service at FREQUENCY:OTHER Resulting Agency Comment Specimen source: Blood us Jerilyn Mike MD LAB BLOOD ORDERABLES Final Re sult makerSQRE [employer] See order comments or contact performing lab Unknown, [place] * HD KINETICS (07/18/2025) Only the most recent of4 resultswithin the time period is included. % Urea Reduction 75 65 - 80 % [facility] 07/18/2025 2025 10: 53 AM CDT Narrative Resulting Agency Comment Specimen source: Plasma us Jerilyn Mike MD LAB BLOOD ORDERABLES Final Re sult Performing Organization Address [facility] Co de Phone Number [facility] See order comments or contact performing lab Unknown, [place] * POST CHEMISTRY (07/18/2025) Only the most recent of4 resultswithin the time period is included. BUN Post Dialysis 9 6 - 19 mg/dL [facility] 07/18/2025 2025 10: 53 AM CDT Narrative [facility] - 2025 Unless otherwise specified, test(s) performed at: [facility], [address] [place] [address] SAUSAGE STUFFER: Baudilio Otoole M.D. For any questions, please call customer service at FREQUENCY:OTHER Resulting Agency Comment Specimen source: Plasma us Jerilyn Mike MD LAB BLOOD ORDERABLES Final Re sul Performing Organization Address [facility] de Phone Number SPECTRAE [email or web address] See order comments or contact performing lab Unknown, [place] * (ABNORMAL) [facility] Chemistry (07/18/2025) Only the most recent of6 resultswithin the time period is included. BUN 36(H) 6 - 19 mg/dL [facility] 07/18/2025 2025 10: 55 AM CDT Narrative [facility]E - 2025 Unless otherwise specified, test(s) performed at: [facility], [address] [place] [id number] SAUSAGE STUFFER: Baudilio Otoole M.D. For any questions, please call customer service at FREQUENCY:OTHER Resulting Agency Comment Specimen source: Serum Jerilyn Mike MD LAB BLOOD ORDERABLES Final Re sult Performing Organization Address City/[facility]/ZIP Co de Phone Number [facility] [employer] See order comments or contact performing lab Unknown, [place] * [facility] Results (07/18/2025) Only the most recent of2 resultswithin the time period is included. [facility] nPCR_HD 0.79 [facility] eKdrt/V 1.40 [facility] spKt/V Gotch 1.64 [facility] spKt/V (Daugirdas II) 1.65 [facility] eKt/V ([place]) 1.43 [facility] WSTDKT/V 1.7 [facility] eNPCR 0.71 [facility] PCR 44.88 [facility] eKt/V Got 1.40 [facility] 07/18/2025 07/18/2025 [facility] Ordering Provider LAB BLOOD ORDERABLES Final Result Performing Organization Address [facility] Co de Phone Number [facility] Contact Performing lab Unknown, [place] * IMMUNO CHEMISTRY (07/09/2025) Only the most recent of3 resultswithin the time period is included. [facility] Hep B Surface Ag Negative Negative [email or web address] 07/09/2025 07/11/2025 11: 49 AM CDT Narrative [facility]E - 07/11/2025 Unless otherwise specified, test(s) performed at: [facility], [address] [place] [address] SAUSAGE STUFFER: Baudilio Otoole M.D. For any questions, please call customer service at FREQUENCY:MONTHLY Resulting Agency Comment Specimen source: Serum Jerilyn Mike MD LAB BLOOD ORDERABLES Final Re sult Performing Organization Address City/[facility]/ZIP Co de Phone Number makerSQR [employer] See order comments or contact performing lab Unknown, [place] * TRACE ELEMENTS (06/11/2025) Only the most recent of2 resultswithin the time period is included. [facility] Aluminum <5 0 - 10 mcg/L [email or web address] Comment: This test was developed and its performance characteristics determined by [facility]. It has not been cleared or approved by the FDA. The laboratory is regulated under CLIA as qualified to perform high complexity testing. This test is used for clinical purposes. It should not be regarded as investigational or for research. 06/11/2025 06/12/2025 10: 08 AM CDT Narrative [facility] - 06/12/2025 Unless otherwise specified, test(s) performed at: [facility], [address] [place] [address] SAUSAGE STUFFER: Baudilio Otoole M.D. For any questions, please call customer service at FREQUENCY:MONTHLY Resulting Agency Comment Specimen source: Serum Jerilyn Mike MD LAB BLOOD ORDERABLES Final Re sult Performing Organization Address [facility] Co de Phone Number [employer] See order comments or contact performing lab Unknown, [place] * (ABNORMAL) SPECIAL CHEMISTRY (06/04/2025) [facility] Folate 12.8 ng/mL [email or web address] Comment: Reference Range: Deficient: <3.4 ng/mL Indeterminate: 3.4-5.4 ng/mL Normal: >5.4 ng/mL Vitamin B-12 1,333(H) 211 - 911 pg/mL [email or web address] Vitamin D, 25-OH, Total 25.1(L) 30.0 - 100.0 ng/mL [email or web address] Comment: Please Note: Effective August 07, 2023, the methodology for this test has changed to the [facility]. 06/04/2025 06/05/2025 9:0 4 AM CDT Narrative Resulting Agency Comment Specimen source: Serum us Jerilyn Mike MD LAB BLOOD BANK TEST ORDERABLE S Final Result Performing Organization Address [facility] Co de Phone Number [employer]QR [employer] See order comments or contact performing lab Unknown, [place] * Comprehensive Metabolic Panel (CMP) (05/26/2025) [facility] Glucose 97 mg/dL BUN 106 mg/dL Creatinine 6.23 mg/dL Sodium 137 mEq/L Potassium 4.6 mEq/L Chloride 108 Carbon Dioxide 18 mmol/L Calcium 8.0 mg/dL Albumin (Blood) 3.7 g/dL AST (SGOT) 17 U/L ALT (SGPT) 15 U/L Alkaline Phosphatase 64 U/L Total Bilirubin 0.30 MG/DL eGFR 7 Total Protein, Serum 6.5 Anion Gap 11 Blood 05/26/2025 [facility] External Provider LAB BLOOD ORDERABLES Final Result * CBC (Includes Diff/Plt) (External Lab) (05/26/2025) WBC 5.00 K/uL Red Blood Cell Count 3.03 Hemoglobin 9.1 g/dL Hematocrit 28.0 % MCV 92.5 MCH 30.1 MCHC 32.6 RDW 18.1 Platelet Count 253 MPV 9.6 Absolute Neutrophils 3.40 Absolute Lymphocytes 1.00 Absolute Monocytes 0.40 Absolute Eosinophils 0.10 Absolute Basophils 0.00 Neutrophils 67.9 K/uL Lymphocytes 20.7 Monocytes 8.7 Eosinophils 1.9 Basophils 0.8 Blood 05/26/2025 [facility] External Provider LAB BLOOD ORDERABLES Final Result from Last 3 Months Insurance [facility] Medicare Medicaid [place] ([facility])
--- OUTSIDE RECORDS SUMMARY | 2025-08-05 17:03 | XMS_ITS | Encounter Summary ---
Author Organization [facility], [facility] Address [address] [place] [address] Phone Care Team Providers Care Nutrition Services Associate Name Role Phone Unavailable Primary Care Provider Leifabl e Encounter Details Date Type Department Care Team (Late st Contact Info) Description 08/05/2025 Treatment [facility], [facility] [address] [place] [address] Jerilyn Mike MD [address] [place] [address] End stage renal disease; Dependence [...] encounter Miscellaneous Notes * Dialysis Note - Jerilyn Mike MD - 08/05/2025 12:00 AM CDT Patient: Yu Nunez, 1960, 65y, F Dialysis Location: [facility] Attending Creative Assistant: Jerilyn Mike Service Date: 08/05/2025 Service Provider: Jerilyn Mike MD I met face to face with the patient today. OVERVIEW The patient presented with ESRD on dialysis Primary cause of renal failure: Chronic kidney disease, unspecified Comments: Hx of uncontrolled HTN and cause of ESRD. Do to hx of noncompliance she is not a candidate for relisting on [facility] kidney transplant. Did have falls at home. She was at SNF and discharged last week. Still with social issues at home. She is wanting to go to a NH until she can get stronger and take care of herself. She has had dizziness with her BP medications. She does not take them as rx and then when she does,she likely has to low of BP. Ed for her to bring in her pill bottles to see exactly what she is on and then will readjust BP meds. Medications and labs reviewed. LAST HOSPITALIZATION Discharge Diagnosis: S62.145S Nondisplaced fracture of body of hamate [unciform] bone, left wrist, sequela K80.80 Other cholelithiasis without obstruction W10.8XXA Fall (on) (from) other stairs and steps, initial encounter Admission Date 07/10/25 Discharge Date 07/15/25 Comments: Fell on 07/09/2025: assessed at ER then sent to DY unit. Requesting ER work up: not received as of end of treatment DIALYSIS PRESCRIPTION IHD 3x Week Start date: 07/25/25 Dialyzer: 160NRe [employer] BFR: 400 DFR: Manual 800 Potassium: 3.0 Sodium: 138 EDW: 51.3 Duration: 3:30 Calcium: 2.5 Bicarb: 32 Rx updated on: 07/23/2025 TREATMENT ASSESSMENT Comments: As above Given clonidine on treatment. BP Sit Pre 08/01/2025: 230/131 07/30/2025: 193/96 07/28/2025: 196/99 BP Sit Post 08/01/2025: 205/109 07/30/2025: 195/107 07/28/2025: 219/107 Prescribed Tx time 08/01/2025: 3:30 07/30/2025: 3:30 07/28/2025: 3:30 Tx Duration 08/01/2025: 3:51 07/30/2025: 3:26 07/28/2025: 3:34 Missed Treatments 2 - last 30 days 2 - last 60 days 08/04 - recent FLUID ASSESSMENT Comments: Some lower leg edema today. Challenge UF. EDW (kg) 08/01/2025: 51.3 07/30/2025: 51.3 07/28/2025: 51.3 Weight Pre (kg) 08/01/2025: 51.9 07/30/2025: 54.1 07/28/2025: 55.4 Weight Post (kg) 08/01/2025: 50.2 07/30/2025: 52.3 07/28/2025: 52.4 PWV (kg) 08/01/2025: -1.1 07/30/2025: 1.0 07/28/2025: 1.1 UF Rate (mL/kg/hr) 08/01/2025: 8.8 07/30/2025: 10 07/28/2025: 16.1 ADEQUACY ASSESSMENT Comments: Stable trend spKt/V, URR 07/18/2025: 1.65, 75.0 07/09/2025: 1.85, 80.0 06/11/2025: 1.8, 78.0 ACCESS ASSESSMENT Access Type: CVCatheter Access SubType: Tunneled Access Status: Active (In Use) - 06/02/2025 Access Location: Neck Placed: 05/29/2025 Vascular access reviewed. Current access is temporary and referral has been made for fistula/graft placement. ANEMIA ASSESSMENT Comments: On IV iron and CHRISTEL protocol. Hgb improving HGB, TSAT 07/30/2025: 9.7, - 07/16/2025: 8.5, - 07/09/2025: 9.2, 17.0 Ferritin 06/11/2025: 284.0 06/04/2025: 135.0 Mircera, IVP (mcg) 07/18/2025: 75 06/30/2025: 30 06/16/2025: 30 Iron Sucrose (Venofer) (mg) 08/01/2025: 100 07/30/2025: 100 07/28/2025: 100 BMM ASSESSMENT Comments: Increased Calcitriol PTH next month PTH, Intact 06/11/2025: 892.0 06/04/2025: 913.0 Calcium, Phosphorus 07/09/2025: 8.4, 4.9 06/11/2025: 7.6, 3.9 06/04/2025: 7.6, 4.4 Vitamin D (Calcitriol) Oral (mcg) 08/01/2025: 0.5 07/30/2025: 0.5 07/28/2025: 0.5 NUTRITION ASSESSMENT Comments: Albumin improving Potassium, Albumin 07/09/2025: 4.5, 3.4 06/11/2025: 5.3, 3.1 06/04/2025: 4.2, 2.8 eNPCR 07/18/2025: 0.71 07/09/2025: 0.98 06/11/2025: 0.9 PHYSICAL EXAM Exam Performed. Vital Signs Reviewed. CV - Blood pressure noted. EXT - 2+ edema. EXT - No ulcers. DIAGNOSIS Chief Complaint: N18.6 End stage renal disease Patient is stable. Patient data updated 08/05/2025 at 10:28 AM Signed By: Jerilyn Mike MD on 08/05/2025 10:32:08 AM documented in this encounter Plan of Treatment Not on file documented as of this encounter Visit Diagnoses Diagnosis End stage renal disease Dependence on renal dialysis documented in this encounter
--- OUTSIDE RECORDS SUMMARY | 2025-08-05 17:03 | XMS_ITS | Encounter Summary ---
Author Organization [facility], [facility] Address [address] [address] [place] [address] Phone Care Team Providers Care Poultry And Fish Butcher Name Role Phone Unavailable Primary Care Provider Unavailabl e Encounter Details Date Type Department Care Team (Late st Contact Info) Description 07/30/2025 Orders Only [facility] [address] [place] [address] Jerilyn Mike MD [address] [address] [place] [address] Social History Tobacco Use Types Packs/Day Years [...] as of this encounter Plan of Treatment Not on file documented as of this encounter Procedures Procedure Name Priority Date/Time Associated Diagnosis Comments HEMATOLOGY Routine 07/30/2025 documented in this encounter Results * (ABNORMAL) HEMATOLOGY (07/30/2025) Hemoglobin 9.7(L) 12.0 - 16.0 g/dL [facility] Hemoglobin x 3 29.1(L) 36.0 - 48.0 % [facility] 07/30/2025 07/31/2025 10: 59 AM CDT Narrative [facility] - 07/31/2025 Unless otherwise specified, test(s) performed at: [facility], [address] [place] [id number] TESTING MACHINE OPERATOR: Baudilio Otoole M.D. For any questions, please call customer service at FREQUENCY:OTHER Resulting Agency Comment Specimen source: Blood us Jerilyn Mike MD LAB BLOOD ORDERABLES Final Re sult [employer] See order comments or contact performing lab Unknown, [place] documented in this encounter Visit Diagnoses Not on filedocumented in this encounter
--- NOTE | 2025-08-05 17:16 | PC.NURSE ---
[facility] called and report that pt's bp was elevated at clinic and pt had received 0.2mg tab clonidine x2.
[2025-08-05] MEDS: nitroglycerin drip 50 MG/250 ML PREMIX IV (17:18)
[2025-08-05 18:05] LABS: Troponin 5 2HR 49.95 ng/L (0-10)
[2025-08-05 18:13] LABS: Troponin 5 2HR Delta -10.05 ABS# (0-10)
--- NOTE | 2025-08-05 20:40 | ECG_ITS ---
[email or web address] Date: 2025-08-05 Pat Name: Yu Nunez Department: Room: 104 Gender: Female Regional Operations Manager: : 1960 Requested By: Eliana Yang Order Number: [id number] Yon MD: LILA CLAROS Measurements Intervals [place] Rate: 61 P: 43 OK: 142 QRS: 20 QRSD: 81 T: 62 QT: 445 QTc: 450 Interpretive Statements SINUS RHYTHM Compared to ECG 08/05/2025 17:03:07 No significant changes Electronically Signed On 08-09-2025 21:14:07 CDT by LILA CLAROS [email or web address]
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
[2025-08-05] MEDS: bumetanide 0.25 mg/mL SDV 4 mL 1 MG IVP (21:17)
[2025-08-05] MEDS: hyDRALAzine 20 mg/mL INJ 1 mL IVP (21:24)
[2025-08-05] MEDS: heparin 5,000 unit/mL INJ 1 mL 5000 UNIT SUBCUT (21:58)
[2025-08-05] MEDS: erythromycin Op Oint 1 gm 1 APPLIC EYE-RIGHT (22:02)
[2025-08-05 22:21] LABS: Troponin 5 6HR 54.55 ng/L (0-10)
[2025-08-05 22:22] LABS: Troponin 5 6HR Delta -5.45 ng/L (0-12)
[2025-08-05] MEDS: HYDROcodone-acetaminophen 5-325 mg Tablet 1 TAB PO (22:31)
[2025-08-06] VITALS (12 sets, daily range): BP systolic 174–223; BP diastolic 82–103; PULSE 65–74; RESP 9–16; TEMP 36.1–37.3; O2SAT 92–96; BMI 20.7
[2025-08-06] MEDS: hyDRALAzine 20 mg/mL INJ 1 mL IVP ×6 (00:12→22:22)
[2025-08-06 04:38] LABS: Anion Gap 15.7 (5-19); Blood Urea Nitrogen 31 mg/dL (8-23); Calcium 8.3 mg/dL (8.5-10.5); Carbon Dioxide 25 mmol/L (22-29); Chloride 98 mmol/L (98-107); Creatinine Clr Calc Pharmacy 14.0973; Glucose 101 mg/dL (65-115); Magnesium 2.1 mg/dL (1.7-2.3); Osmolality Calculated 285 mOsm/kg (285-295); Potassium 4.7 mmol/L (3.5-5.1); Sodium 134 mmol/L (136-145)
[2025-08-06] MEDS: LOSARTAN 25 MG TABLET PO ×2 (04:51→16:12)
[2025-08-06] MEDS: PRENATAL VIT NO.130/IRON/FOLIC 1 EACH TABLET PO (04:51)
[2025-08-06] MEDS: fluticasone nasal spray 16gm Btl 1 SPRAY INTRANASAL (05:00)
[2025-08-06] MEDS: erythromycin Op Oint 1 gm 1 APPLIC EYE-RIGHT ×4 (07:59→23:28)
[2025-08-06] MEDS: HYDROcodone-acetaminophen 5-325 mg Tablet 1 TAB PO ×2 (08:07→16:11)
--- NOTE | 2025-08-06 08:08 | PM.CONSULT ---
Providers/Reason For Consult Consulting Physician/Specialty*: [facility] /nEPHROLOGY Reason for Consult*: esrd Attending Physician: Tushar Ren MD Primary Care Provider: Ale Olivier MD History of Present Illness History of Present Illness Yu Nunez is a 65 year old female Patient is a 65-year-old female with end-stage renal disease on dialysis with history of prior pancreatic and kidney transplant 23 years ago with a failed renal transplant, has been on dialysis. She is currently admitted due to elevated blood pressures. Patient had not been taking her blood pressure medications. Lab data significant for hemoglobin of 10.6 . Potassium was 4.3. Patient currently getting dialysis. Review of Systems Narrative: negative Medications/Allergies Home Medications ?Medication ?Instructions ?Recorded ?Confirmed ?Last Taken ?Type ascorbic acid (vitamin C) 500 mg 500 mg PO BID@0700,1730 09/13/20 08/05/25 08/05/25 History tablet (Vitamin C) aspirin 81 mg chewable tablet 81 mg PO DAILY@2100 09/13/20 08/05/25 08/04/25 History loperamide 2 mg capsule 2 mg PO TID PRN Diarrhea 09/13/20 08/05/25 Unknown History magnesium oxide 400 mg (241.3 mg 400 mg PO DAILY 09/13/20 08/05/25 08/05/25 History magnesium) tablet vitamin E acetate 134 mg (200 400 unit PO DAILY@0700 09/13/20 08/05/25 08/05/25 History unit) capsule cholecalciferol (vitamin D3) 25 25 mcg PO DAILY 05/28/25 08/05/25 08/05/25 History mcg (1,000 unit) capsule (Vitamin D3) mycophenolate sodium 180 mg 180 mg PO QID 05/28/25 08/05/25 08/05/25 History tablet,delayed release vitamins with calcium 27 tab PO DAILY 05/28/25 08/05/25 08/05/25 History no.72-iron 27 mg-folic acid 1 mg tablet ( Vitamins Plus Low Iron) tacrolimus 0.5 mg capsule, See Rx Instructions .Route .COMPLEX 05/28/25 08/05/25 08/05/25 History immediate-release clonidine HCl 0.1 mg tablet 0.1 mg PO TID #90 tabs 06/02/25 08/05/25 08/05/25 Rx docusate sodium 100 mg capsule 100 mg PO BID #60 caps 06/02/25 08/05/25 08/04/25 Rx hydralazine 100 mg tablet 100 mg PO TID #90 tabs 06/02/25 08/05/25 08/05/25 Rx prednisone 5 mg tablet 5 mg PO DAILY #30 tabs 06/02/25 08/05/25 08/05/25 Rx bumetanide 0.5 mg tablet See Rx Instructions .Route .COMPLEX 07/09/25 08/05/25 08/04/25 History carvedilol 25 mg tablet 25 mg PO DAILY 07/09/25 08/05/25 08/05/25 History clonidine 0.2 mg/24 hr weekly 1 patch topical Q7D 07/09/25 08/05/25 Unknown History transdermal patch fluticasone propionate 50 1 spray intranasal BID 07/09/25 08/05/25 08/05/25 History mcg/actuation nasal spray,suspension erythromycin 5 mg/gram (0.5 %) eye 1 applic eye-right QID #1 g 07/15/25 08/05/25 08/05/25 Rx ointment (3.5 gram tube) hydrocodone 5 mg-acetaminophen 325 1 tab PO Q6H PRN pain (scale score 07/15/25 08/05/25 Unknown Rx mg tablet 7-10) #14 tabs losartan 50 mg tablet 100 mg (2 x 50 mg) PO Q24H #30 tabs 07/15/25 08/05/25 08/05/25 Rx enoxaparin 30 mg/0.3 mL 30 mg (0.3 mL) SUBCUT DAILY Blood 07/18/25 08/05/25 08/05/25 Rx subcutaneous syringe (Lovenox) Clot Prevention 35 days #10.5 mL Allergies Allergy/AdvReac Type Severity Reaction Status Date / Time cranberry Allergy Severe ALGY-Swell Verified 08/05/25 13:33 Lip/Tongue/Throat codeine Allergy ADR-Halluci Verified 08/05/25 13:33 nating nifedipine Allergy ALGY-Swell Verified 08/05/25 13:33 Lip/Tongue/Throat povidone-iodine (From Allergy ADR-Itching Verified 08/05/25 13:33 Betadine) simvastatin Allergy Unknown Verified 08/05/25 13:33 trazodone Allergy ADR-Vomitin Verified 08/05/25 13:33 g Current Medications Generic Name Dose Route Start Last Admin Trade Name [place] PRN Reason Stop Dose Admin Hydrocodone Bitart/Acetaminophen 1 tab 08/05/25 20:01 08/05/25 22:31 Hydrocodone-Acetaminophen 5-325 Mg Tablet PO 1 tab Q6H PRN Administration pain (scale score 7-10) Ascorbic Acid 500 mg 08/06/25 07:00 08/06/25 06:03 Ascorbic Acid 500 Mg Tablet PO 500 mg BID@0700,1730 RENETTA Administration Aspirin 81 mg 08/05/25 21:00 08/05/25 21:21 Aspirin 81 Mg Chew Tablet PO 81 mg DAILY@2100 RENETTA Administration Carvedilol 25 mg 08/06/25 05:00 08/06/25 04:52 Carvedilol 25 Mg Tablet PO 25 mg DAILY RENETTA Administration Clonidine HCl 0.1 mg 08/05/25 21:00 08/06/25 04:59 Clonidine 0.1 Mg Tablet PO 0.1 mg TID RENETTA Administration Docusate Sodium 100 mg 08/06/25 05:00 08/06/25 04:51 Docusate Sodium 100 Mg Capsule PO 100 mg BID RENETTA Administration Erythromycin 1 applic 08/06/25 07:00 08/06/25 07:59 Erythromycin Op Oint 1 Gm EYE-RIGHT 1 applic QID RENETTA Administration Protocol Fluticasone Propionate 1 spray 08/06/25 05:00 08/06/25 05:00 Fluticasone Nasal [place] 16gm Btl INTRANASAL 1 spray BID RENETTA Administration Heparin Sodium (Porcine) 5,000 unit 08/05/25 21:15 08/05/25 21:58 Heparin 5,000 Unit/Ml Inj 1 Ml SUBCUT 5,000 unit Q12H RENETTA Administration Hydralazine HCl 100 mg 08/05/25 21:00 08/06/25 04:51 Hydralazine 50 Mg Tablet PO 100 mg TID RENETTA Administration Hydralazine HCl 20 mg 08/05/25 21:00 08/06/25 06:02 Hydralazine 20 Mg/Ml Inj 1 Ml IVP 20 mg Q4H RENETTA Administration Nitroglycerin/Dextrose 50 mg in 250 mls @ 0 mls/hr 08/05/25 16:30 08/06/25 00:20 Nitroglycerin Drip IV 50 mcg/min .Q0M RENETTA 15 mls/hr Protocol Titration Per Protocol Losartan Potassium 25 mg 08/06/25 05:00 08/06/25 04:51 Losartan 25 Mg Tablet PO 25 mg BID RENETTA Administration Magnesium Oxide 400 mg 08/06/25 05:00 08/06/25 04:51 Magnesium Oxide 400 Mg Tablet PO 400 mg DAILY RENETTA Administration Prednisone 5 mg 08/06/25 05:00 08/06/25 04:50 Prednisone 5 Mg Tablet PO 5 mg DAILY RENETTA Administration Prenat Multivit/Steel Post Installer/Iron/Folic Ac 1 each 08/06/25 05:00 08/06/25 04:51 Vit No.130/Iron/Folic 1 Each Tablet PO 1 each DAILY RENETTA Administration Tacrolimus 1.5 mg 08/05/25 20:15 08/06/25 04:51 Tacrolimus 0.5 Mg Capsule PO 1.5 mg BID RENETTA Administration Vitamin D 1,000 unit 08/06/25 05:00 08/06/25 04:51 Cholecalciferol (Vitamin D3) 1,000 Unit Tablet PO 1,000 unit DAILY RENETTA Administration PFSH Acute PFSH: Medical History (Updated 08/05/25 @ 16:25 by Eliana Farnsworth MD) Immunosuppressed status Moderate aortic valve stenosis Hepatitis C Post hysterectomy menopause Surgical History Transplant Arteriovenous fistula removed Renal transplant recipient Social History (Updated 08/05/25 @ 21:23 by Tushar Ren MD) Smoking and tobacco/nicotine status: former use of tobacco/nicotine Alcohol intake: never Substance/Drug Use: never Additional social history: She wants full code is discussed with Tushar Ren MD on 08/05/2025. 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 Current occupational status: disabled Vitals/I&O/Wt Last Vital Signs Temp 98.3 F 08/06/25 03:31 Pulse 68 08/06/25 03:31 Resp 14 08/06/25 03:31 BP 200/101 08/06/25 04:59 Pulse Ox 92 08/06/25 03:31 O2 Del Method Room Air 08/06/25 03:31 08/05/25 08/06/25 08/06/25 22:59 06:59 14:59 Intake Total 15.425 / 15.425 30.6 / 46.025 Balance 15.425 / 15.425 30.6 / 46.025 Weight last 48 hrs Weight 51.6 kg Weight 50.547 kg Weight 52.163 kg Physical Exam Narrative: awake , alert , no distress on 2L c PEERLA S1S2 RRR Lungs clear Grade abd soft non tender ext no edema skin no rash Data 08/05/25 15:20 08/06/25 03:30 A&P Assessment and plan 1. End stage renal disease on dialysis: Plan: 1. End-stage renal disease: On MWF schedule, dialysis today and ultrafiltration as tolerated 2. Malignant hypertension Home medications. Her dialysis 3. Anemia: Hemoglobin at goal, monitor 4. History of antibiotic and renal: Explant with failed renal transplant and dialysis dependent. 5. Acetabular fracture, conservative management Patient evaluated using audiovisual cart. Time spent 40 minutes. PDMP PDMP Reviewed: Not Reviewed Consult Attestations Medical Necessity Statement: per andrew Coding Level of Care Code Acute Code for Chg Fwd Diagnoses End stage renal disease on dialysis N18.6; Z99.2
--- NOTE | 2025-08-06 09:55 | PC.CHAP ---
Pastoral Care Encounter/Spiritual Assessment Type of Contact [] Declined operations research analyst visit [] Patient/Family/Request visit [] Outpatient visit [] Follow-up visit [] Physician referral [] Code/Alert [x] Routine visit [] Staff referral [] Actively dying [] Patient sleeping [] Family support [] [] Out of room [] Palliative care [] [] Receiving care in room [] Pre-surgical visit [] Trauma [] Long length of stay [] ICU visit [] Other: Relational/Emotional Strength [x] Patient feels connected with others/family/visitors/staff [] Distress [] Loneliness/isolation [] Abandonment Spirituality of Patient [x] Person of Tracey [] Attends Hindu of their Tracey [x] Believes in Prayer [] Reads Bible or Muslim materials [] There are Spiritual issues to be addressed Vending Machine Refiller Interventions [x] Prayer [x] Active listening [] Non-anxious presence [x] Spiritual/emotional support [] Crisis/trauma care [] Spiritual counseling [] Bereavement support [] Provided bereavement packet [] Provided Bible/devotional materials [] Provided toy/stuffed animal, coloring book to patient or family member [] Provided Communion [] Anointing/[place] [] Salvation [x] Completed spiritual assessment [] Other: Impact on Illness or Injury [] Angry [] Fearful [] Anxious [] Often cries [] Exhaustion [] Unable to work [] Unable to attend sikh [] Unable to walk/stand [] Unable to read [] Unable to drive [] Unable to eat/drink [] Unable to sleep [] Unable to be with family [] Patient intubated [] Other: Summary Time spent with patient 5 min
[2025-08-06] MEDS: nitroglycerin drip 50 MG/250 ML PREMIX 15 MG IV (16:16)
--- NOTE | 2025-08-06 19:05 | P.PN_ITS ---
Subjective 2 Subjective: 65-year-old female received di alysis morning for 2 hours she states it made her feel better she reports a headache and remains on nitroglycerin drip she denies any problem with amlodipine in the past and is willing to take it. Vitals/I&O/Wt Last Vital Signs Temp 98.6 F 08/06/25 13:42 Pulse 70 08/06/25 16:00 Resp 9 L 08/06/25 16:00 BP 181/99 08/06/25 16:00 Pulse Ox 93 08/06/25 16:00 O2 Del Method Room Air 08/06/25 03:31 08/06/25 08/06/25 08/06/25 06:59 14:59 22:59 Intake Total 30.6 / 46.025 500 / 500 203.975 / 703.975 Output Total 2500 / 2500 Balance 30.6 / 46.025 -1999 / -1999 203.975 / -1796.025 Weight last 48 hrs Weight 50.8 kg Weight 51.6 kg Weight 50.547 kg Weight 52.163 kg Physical Exam 2 Narrative: General well-developed well-nourished thin female in no acute cardiopulmonary stress Face she has bruising underneath both eyes. She tracks with her eyes normally CV regular rate and rhythm Lungs crackles heard in both lower lung saenz with otherwise good air movement Abdomen positive bowel tones soft nontender Calves no tenderness no pretibial edema Skin warm and dry Data 08/05/25 15:20 08/06/25 03:30 A&P Assessment and plan 1. Accelerated hypertension: Admitted to the hospital and will continue carvedilol 25 mg daily hydralazine 100 mg 3 times daily, increase clonidine to 0.2 mg 3 times daily. Increase losartan to 50 mg twice a day. Add amlodipine 5 mg daily discontinue nitroglycerin drip 2. End stage renal disease on dialysis: Dr. Morrell has had the patient received dialysis already once today 3. Left acetabular fracture: Start physical therapy PDMP PDMP Reviewed: Not Reviewed Attestations 2 Medical Necessity Statement*: Patient requires additional 1-2 midnights in hospital Coding Level of Care Code Acute Code for Chg Fwd Diagnoses Accelerated hypertension I10 End stage renal disease on dialysis N18.6; Z99.2 Left acetabular fracture S32.402A
[2025-08-07] VITALS (10 sets, daily range): BP systolic 131–201; BP diastolic 65–101; PULSE 61–68; RESP 8–18; TEMP 36.7–37; O2SAT 94–97; BMI 19.5
[2025-08-07] MEDS: hyDRALAzine 20 mg/mL INJ 1 mL IVP ×7 (02:01→23:56)
[2025-08-07] MEDS: PRENATAL VIT NO.130/IRON/FOLIC 1 EACH TABLET PO (05:04)
[2025-08-07] MEDS: erythromycin Op Oint 1 gm 1 APPLIC EYE-RIGHT ×4 (05:14→23:57)
[2025-08-07 07:04] LABS: Anion Gap 15.1 (5-19); Blood Urea Nitrogen 19 mg/dL (8-23); Calcium 8.1 mg/dL (8.5-10.5); Carbon Dioxide 24 mmol/L (22-29); Chloride 97 mmol/L (98-107); Creatinine Clr Calc Pharmacy 16.4358; Glucose 137 mg/dL (65-115); Magnesium 2.1 mg/dL (1.7-2.3); Osmolality Calculated 278 mOsm/kg (285-295); Potassium 4.1 mmol/L (3.5-5.1); Sodium 132 mmol/L (136-145)
[2025-08-07] MEDS: heparin 5,000 unit/mL INJ 1 mL 5000 UNIT SUBCUT ×2 (09:32→20:52)
--- NOTE | 2025-08-07 14:28 | XR_ITS ---
WS: [id number] Exam: XR chest 1V portable [id number] Date/Time of Exam: 08/07/2025 2:28 PM Reason For Exam: follow up volume overload and bilateral effusions Comparison 08/05/2025. There is been significant improvement in pulmonary vascular congestion since the previous study. RIGHT basal pleural effusion has resolved. LEFT basal pleural effusion has improved. Heart size is about the same. The mediastinum is normal in contour. Right-sided double-lumen catheter is unchanged in location. XR/XR chest 1V portable [id number] IMPRESSION: 1. Congestive heart failure pattern showing significant improvement since the l ast exam.
--- NOTE | 2025-08-07 15:14 | P.PN_ITS ---
Subjective 2 Subjective: no new c/o Medications: Reviewed: Yes Vitals/I&O/Wt Last Vital Signs Temp 98.1 F 08/07/25 13:05 Pulse 63 08/07/25 13:05 Resp 18 08/07/25 13:05 BP 153/79 08/07/25 13:07 Pulse Ox 96 08/07/25 13:05 O2 Del Method Room Air 08/07/25 13:05 08/07/25 08/07/25 08/07/25 06:59 14:59 22:59 Intake Total 240 / 240 Balance 240 / 240 Weight last 48 hrs Weight 48.5 kg Weight 50.8 kg Weight 51.6 kg Weight 50.547 kg Physical Exam 2 Narrative: awake , alert , no distress on 2L c PEERLA S1S2 RRR Lungs clear Grade abd soft non tender ext no edema skin no rash Data 08/05/25 15:20 08/08/25 05:47 A&P Assessment and plan 1. End stage renal disease on dialysis: Plan: 1. End-stage renal disease: On MWF schedule, and ultrafiltration as tolerated 2. Malignant hypertension Home medications. Her dialysis 3. Anemia: Hemoglobin at goal, monitor 4. History of antibiotic and renal: Explant with failed renal transplant and dialysis dependent. 5. Acetabular fracture, conservative management Patient evaluated using audiovisual cart. Time spent 40 minutes. PDMP PDMP Reviewed: Not Reviewed Attestations 2 Medical Necessity Statement*: per andrew Coding Level of Care Code Acute Code for Chg Fwd Diagnoses End stage renal disease on dialysis N18.6; Z99.2
--- NOTE | 2025-08-07 15:17 | P.PN_ITS ---
Subjective 2 Subjective: 65-year-old female states she feels better. She states she does take her antirejection medications at home including mycophenolate 180 mg daily and tacrolimus 1.5 mg twice a day. We had the latter medication but not the mycophenolate. aPul was trying to locate some through outpatient pharmacy. Patient tells me that her boyfriend can bring it in but her own phone is not working. I called the number she gave [phone] for [facility] but he is not answering a voicemail is not available Vitals/I&O/Wt Last Vital Signs Temp 98.1 F 08/07/25 13:05 Pulse 63 08/07/25 13:05 Resp 18 08/07/25 13:05 BP 153/79 08/07/25 13:07 Pulse Ox 96 08/07/25 13:05 O2 Del Method Room Air 08/07/25 13:05 08/07/25 08/07/25 08/07/25 06:59 14:59 22:59 Intake Total 240 / 240 Balance 240 / 240 Weight last 48 hrs Weight 48.5 kg Weight 50.8 kg Weight 51.6 kg Weight 50.547 kg Physical Exam 2 Narrative: General well-developed well-nourished thin female in no acute cardiopulmonary stress Face decreasing bruising underneath both eyes. She tracks with her eyes normally CV regular rate and rhythm Lungs crackles heard in both lower lung saenz improved from yesterday Abdomen positive bowel tones soft nontender Calves no tenderness no pretibial edema Skin warm and dry Data 08/05/25 15:20 08/07/25 06:42 A&P Assessment and plan 1. Accelerated hypertension: Admitted to the hospital and will continue carvedilol 25 mg daily hydralazine 100 mg 3 times daily, increase clonidine to 0.2 mg 3 times daily. Increase losartan to 50 mg twice a day. Continue amlodipine 5 mg daily . Improved 2. End stage renal disease on dialysis: Continue with dialysis per Dr. Morrell [facility] 3. Left acetabular fracture: Start physical therapy now that blood pressure has improved 4. History of simultaneous kidney and pancreas transplant: Continue antirejection medicines. I was unable to reach her boyfriend will notify patient PDMP PDMP Reviewed: Not Reviewed Attestations 2 Medical Necessity Statement*: Patient lindy hospitalized for management of blood pressure and for therapy and will likely need placement for therapy. Anticipate additional 1-2 midnights in the hospital Coding Level of Care Code Acute Code for Chg Fwd Diagnoses Accelerated hypertension I10 End stage renal disease on dialysis N18.6; Z99.2 Left acetabular fracture S32.402A History of simultaneous kidney and pancreas transplant Z94.0; Z94.83 Time Spent (min) 35
--- NOTE | 2025-08-07 17:19 | PC.NURSE ---
Nursing got giovanna of [facility], the boyfriend, and is bring the mycophenolate.
[2025-08-07] MEDS: NON-FORMULARY MEDICATION (Mycophenolate Sodium 180 mg tablet,delayed release (DR/EC)) 180 EACH PO (18:08)
[2025-08-08] VITALS (9 sets, daily range): BP systolic 126–190; BP diastolic 60–99; PULSE 62–65; RESP 10–18; TEMP 36.3–36.9; O2SAT 96–97
[2025-08-08] MEDS: NON-FORMULARY MEDICATION (Mycophenolate Sodium 180 mg tablet,delayed release (DR/EC)) 180 EACH PO ×4 (00:02→18:20)
[2025-08-08] MEDS: erythromycin Op Oint 1 gm 1 APPLIC EYE-RIGHT ×2 (00:25→12:27)
[2025-08-08] MEDS: PRENATAL VIT NO.130/IRON/FOLIC 1 EACH TABLET PO (05:16)
[2025-08-08] MEDS: hyDRALAzine 20 mg/mL INJ 1 mL IVP ×2 (05:17→08:30)
[2025-08-08 06:31] LABS: Anion Gap 17.6 (5-19); Blood Urea Nitrogen 28 mg/dL (8-23); Calcium 8.1 mg/dL (8.5-10.5); Carbon Dioxide 23 mmol/L (22-29); Chloride 94 mmol/L (98-107); Creatinine Clr Calc Pharmacy 12.2471; Glucose 109 mg/dL (65-115); Magnesium 2.2 mg/dL (1.7-2.3); Osmolality Calculated 276 mOsm/kg (285-295); Potassium 4.6 mmol/L (3.5-5.1); Sodium 130 mmol/L (136-145)
[2025-08-08] MEDS: heparin 5,000 unit/mL INJ 1 mL 5000 UNIT SUBCUT (08:31)
--- NOTE | 2025-08-08 13:25 | PC.NURSE ---
off unit to hemodialysis room
--- NOTE | 2025-08-08 14:00 | PC.OT ---
Unavailable for OT treatment due to dialysis
--- NOTE | 2025-08-08 14:30 | PC.NURSE ---
off unit in hemodialysis
--- NOTE | 2025-08-08 14:43 | PC.NURSE ---
patient is still getting her dialysis.
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
--- NOTE | 2025-08-08 16:12 | P.PN_ITS ---
Subjective 2 Subjective: getting HD Medications: Reviewed: Yes Vitals/I&O/Wt Last Vital Signs Temp 98.4 F 08/08/25 15:11 Pulse 63 08/08/25 15:11 Resp 18 08/08/25 15:11 BP 128/73 08/08/25 15:11 Pulse Ox 96 08/08/25 04:00 O2 Del Method Room Air 08/08/25 04:00 08/08/25 08/08/25 08/08/25 06:59 14:59 22:59 Intake Total 120 / 480 480 / 480 Balance 120 / 480 480 / 480 Weight last 48 hrs Weight 47.7 kg Weight 48.5 kg Physical Exam 2 Narrative: awake , alert , no distress on 2L c PEERLA S1S2 RRR Lungs clear Grade abd soft non tender ext no edema skin no rash Data 08/05/25 15:20 08/08/25 05:47 A&P Assessment and plan 1. End stage renal disease on dialysis: Plan: 1. End-stage renal disease: On MWF schedule, and ultrafiltration as tolerated 2. Malignant hypertension , resumed Home medications. 3. Anemia: Hemoglobin at goal, monitor 4. History of pancreatic and renal with failed renal transplant and dialysis dependent. 5. Acetabular fracture, conservative management Patient evaluated using audiovisual cart. Time spent 40 minutes. PDMP PDMP Reviewed: Not Reviewed Attestations 2 Medical Necessity Statement*: per andrew Coding Level of Care Code Acute Code for Chg Fwd Diagnoses End stage renal disease on dialysis N18.6; Z99.2
--- NOTE | 2025-08-08 17:47 | PC.NURSE ---
called report to [facility] talked to staff to give report on her discharge papers.
== END 2025-08-08 18:28 | disposition skilled nursing facility (03) | DRG 682 ==
LOC: ER 16:25 → ER IP 17:38 → CSU 18:47
PROVIDERS: Admitting Provider Internal Medicine; Emergency Provider Emergency Medicine; PCP Family Medicine; Visit Provider Internal Medicine
DX: I12.0 Hypertensive chronic kidney disease with stage 5 chronic kidney disease or end stage renal disease (principal); N18.6 End stage renal disease; S32.402A Unspecified fracture of left acetabulum, initial encounter for closed fracture; T86.11 Kidney transplant rejection; Z94.83 Pancreas transplant status; D84.821 Immunodeficiency due to drugs; E11.22 Type 2 diabetes mellitus with diabetic chronic kidney disease; D63.1 Anemia in chronic kidney disease; I35.0 Nonrheumatic aortic (valve) stenosis; W18.30XA Fall on same level, unspecified, initial encounter; Z99.2 Dependence on renal dialysis; Z79.4 Long term (current) use of insulin; Z79.621 Long term (current) use of calcineurin inhibitor; Z79.624 Long term (current) use of inhibitors of nucleotide synthesis; Z79.82 Long term (current) use of aspirin; Z86.19 Personal history of other infectious and parasitic diseases; Z87.891 Personal history of nicotine dependence
CPT/HCPCS: 36415; 36416; 71045; 72190; 73110; 80048; 80053; 82962; 83735; 83880; 84100; 84484; 85025; 90935; 93005; 96365; 96366; 96372; 96374; 96375; 96376; 97161; 97166; 97530; 99024; 99213; 99284; 99285; J0360; J1644; J3490; J7507; J7512; J9999

== ENCOUNTER → 2025-08-19 14:12 | Outpatient (BNVA) | payer OTHER, MEDICAID, SELFPAY | PROVIDERS: PCP Family Medicine; Visit Provider Physician Assistant | DX: S52.502D Unspecified fracture of the lower end of left radius, subsequent encounter for closed fracture with routine healing (principal); S32.9XXD Fracture of unspecified parts of lumbosacral spine and pelvis, subsequent encounter for fracture with routine healing; X58.XXXD Exposure to other specified factors, subsequent encounter; Z46.89 Encounter for fitting and adjustment of other specified devices; S52.592D Other fractures of lower end of left radius, subsequent encounter for closed fracture with routine healing | CPT/HCPCS: 72190; 73110 ==

== ENCOUNTER 2025-08-19 16:18 | Outpatient (CLI) | payer OTHER, MEDICAID, SELFPAY | END 2025-08-19 16:19 | disposition home or self-care (01) | LOC: SPT 16:19 | PROVIDERS: PCP Family Medicine; Visit Provider Physician Assistant | DX: Z46.89 Encounter for fitting and adjustment of other specified devices (principal); S52.592D Other fractures of lower end of left radius, subsequent encounter for closed fracture with routine healing; X58.XXXD Exposure to other specified factors, subsequent encounter | CPT/HCPCS: L3908 ==

== ENCOUNTER → 2025-09-09 14:13 | Outpatient (BNVA) | payer OTHER, MEDICAID, SELFPAY | PROVIDERS: PCP Family Medicine; Visit Provider Physician Assistant | DX: S52.502D Unspecified fracture of the lower end of left radius, subsequent encounter for closed fracture with routine healing (principal); S32.309D Unspecified fracture of unspecified ilium, subsequent encounter for fracture with routine healing; S32.10XD Unspecified fracture of sacrum, subsequent encounter for fracture with routine healing; S32.9XXD Fracture of unspecified parts of lumbosacral spine and pelvis, subsequent encounter for fracture with routine healing; X58.XXXD Exposure to other specified factors, subsequent encounter | CPT/HCPCS: 72190; 73110 ==

== ENCOUNTER 2025-09-09 15:07 | Inpatient (IN) | payer MEDICARE, MEDICAID, SELFPAY ==
[2025-09-09] VITALS (18 sets, daily range): BP systolic 194–251; BP diastolic 91–142; PULSE 70–164; RESP 14–16; TEMP 36.8; O2SAT 90–94; BMI 19.8
--- NOTE | 2025-09-09 15:14 | ECG_ITS ---
[facility] Test Date: 2025-09-09 Pat Name: Yu Nunez Department: Room: Gender: Female Induction Brazer: : 1960 Requested By: Aaron Yang Order Number: [id number] Yon MD: Ashvin De Santiago M.D. Measurements Intervals [place] Rate: 69 P: 4 FL: 125 QRS: 3 QRSD: 79 T: 77 QT: 397 QTc: 428 Interpretive Statements SINUS RHYTHM NONSPECIFIC T-WAVE ABNORMALITY Compared to ECG 08/05/2025 20:40:31 T-wave abnormality now present Electronically Signed On 09-09-2025 18:56:25 MUNITIONS WORKER by Ashvin De Santiago M.D. [email or web address]
[2025-09-09 16:09] LABS: Hematocrit 30.1 % (36-47); Hemoglobin 9.40 g/dL (11.27-16.99); Mean Corpuscular HGB Conc 31.2 g/dL (30-55); Mean Corpuscular Hemoglobin 32.1 pg (27-33); Mean Corpuscular Volume 102.7 fl (85-98); Nucleated Red Blood Cells % 0 %; Platelet Count 275 10^3/cmm (157-399); Red Blood Count 2.93 10^6/uL (3.85-5.65); White Blood Count 9.65 10^3/uL (3.29-11.43)
[2025-09-09 16:26] LABS: Alanine Aminotransferase 8 U/L (0-33); Albumin Level 3.6 g/dL (3.5-5.2); Alkaline Phosphatase 82 U/L (35-105); Anion Gap 17.2 (5-19); Aspartate Amino Transferase 15 U/L (0-32); Blood Urea Nitrogen 25 mg/dL (8-23); Calcium 9.2 mg/dL (8.5-10.5); Carbon Dioxide 25 mmol/L (22-29); Chloride 99 mmol/L (98-107); Globulin 2.5 g/dL (1.3-4.6); Glucose 113 mg/dL (65-115); Osmolality Calculated 287 mOsm/kg (285-295); Potassium 5.2 mmol/L (3.5-5.1); Sodium 136 mmol/L (136-145); Total Protein 6.1 g/dL (6.6-8.7)
--- NOTE | 2025-09-09 16:39 | W.ED.RECABL ---
HPI - Recheck/Abnormal Lab/Rx General: Chief Complaint: Recheck/Abnormal Lab/Rx Stated Complaint: high bp Time Seen by Provider: 09/09/25 15:50 History of Present Illness: 65-year-old female presents to the emergency room with complaints of elevated blood pressure x 1 week. She fell last week after getting dizzy. She recently had changed some of her blood pressure medication she was taking both clonidine orally and by patch. She is a dialysis patient she had a shortened dialysis run yesterday evidently the close clinic early due to weather. She denies any chest pain or abdominal pain. Today patient was at the orthopedic clinic noted to have significant elevation of her blood pressure and directed to the emergency room. Related Data Home Medications ?Medication ?Instructions ?Recorded ?Confirmed ascorbic acid (vitamin C) 500 mg 500 mg PO BID@0700,1730 09/13/20 09/10/25 tablet (Vitamin C) aspirin 81 mg chewable tablet 81 mg PO DAILY@2100 09/13/20 09/10/25 loperamide 2 mg capsule 2 mg PO TID PRN Diarrhea 09/13/20 09/10/25 magnesium oxide 400 mg (241.3 mg 400 mg PO DAILY 09/13/20 09/10/25 magnesium) tablet vitamin E acetate 134 mg (200 400 unit PO DAILY@0700 09/13/20 09/10/25 unit) capsule cholecalciferol (vitamin D3) 25 25 mcg PO DAILY 05/28/25 09/10/25 mcg (1,000 unit) capsule (Vitamin D3) mycophenolate sodium 180 mg 180 mg PO QID 05/28/25 09/10/25 tablet,delayed release vitamins with calcium 27 tab PO DAILY 05/28/25 09/10/25 no.72-iron 27 mg-folic acid 1 mg tablet ( Vitamins Plus Low Iron) tacrolimus 0.5 mg capsule, See Rx Instructions .Route .COMPLEX 05/28/25 09/10/25 immediate-release bumetanide 0.5 mg tablet See Rx Instructions .Route .COMPLEX 07/09/25 09/10/25 carvedilol 25 mg tablet 25 mg PO DAILY 07/09/25 09/10/25 fluticasone propionate 50 1 spray intranasal BID 07/09/25 09/10/25 mcg/actuation nasal spray,suspension Previous Rx's ?Medication ?Instructions ?Recorded docusate sodium 100 mg capsule 100 mg PO BID #60 caps 06/02/25 prednisone 5 mg tablet 5 mg PO DAILY #30 tabs 06/02/25 erythromycin 5 mg/gram (0.5 %) eye 1 applic eye-right QID #1 g 07/15/25 ointment (3.5 gram tube) hydrocodone 5 mg-acetaminophen 325 1 tab PO Q6H PRN pain (scale score 07/15/25 mg tablet 7-10) #14 tabs amlodipine 5 mg tablet 10 mg (2 x 5 mg) PO DAILY #30 tabs 08/08/25 dental adhesive [Fixodent] 1 applic dental PRN #1 tube 08/08/25 losartan 50 mg tablet 50 mg PO BID #60 tabs 08/08/25 left velcro wrist brace #1 ea 08/19/25 clonidine HCl 0.1 mg tablet 0.3 mg (3 x 0.1 mg) PO TID #90 tabs 09/14/25 hydralazine 100 mg tablet 100 mg PO TID #90 tabs 09/14/25 Allergies Allergy/AdvReac Type Severity Reaction Status Date / Time cranberry Allergy Severe ALGY-Swell Verified 09/09/25 15:20 Lip/Tongue/Throat isosorbide Allergy Unknown ALGY-Hives Unverified 09/15/25 08:20 codeine Allergy ADR-Halluci Verified 09/09/25 15:20 nating nifedipine Allergy ALGY-Swell Verified 09/09/25 15:20 Lip/Tongue/Throat povidone-iodine (From Allergy ADR-Itching Verified 09/09/25 15:20 Betadine) simvastatin Allergy Unknown Verified 09/09/25 15:20 trazodone Allergy ADR-Vomitin Verified 09/09/25 15:20 g Review of Systems Const: Denies: fever(s) or chills Card: Denies: chest pain Resp: Denies: dyspnea GI: Denies: abdominal pain : Denies: dysuria, urinary frequency or urinary urgency Musc: Denies: neck pain or back pain Skin/Breast: Denies: rash PFSH ED PFSH: Medical History Immunosuppressed status Moderate aortic valve stenosis Hepatitis C Post hysterectomy menopause Surgical History History of simultaneous kidney and pancreas transplant Transplant Arteriovenous fistula removed Renal transplant recipient Social History Smoking and tobacco/nicotine status: former use of tobacco/nicotine Alcohol intake: never Substance/Drug Use: never Additional social history: She wants full code is discussed with Tushar Ren MD on 08/05/2025. 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 Current occupational status: disabled Physical Exam Const: COMMON NORMALS: no acute distress GENERAL APPEARANCE: cooperative and comfortable ORIENTATION/CONSCIOUSNESS: Yes awake HENMT: COMMON NORMALS: normocephalic, atraumatic and hearing grossly normal bilaterally HEAD & SCALP: normocephalic and atraumatic Resp: COMMON NORMALS: normal respiratory effort, No retractions, No use of accessory muscles and clear to auscultation bilaterally AUSCULTATION: clear to auscultation bilaterally Cardio: COMMON NORMALS: regular rate, regular rhythm and No murmurs present (Cardio) RATE: regular rate RHYTHM: regular rhythm GI: COMMON NORMALS: Soft to palpation and No hepatosplenomegaly present AUSCULTATION: Yes normoactive bowel sounds PALPATION: Yes Soft to palpation, No Tenderness to palpation present (GI), No Guarding due to palpation present (GI) and Yes No hepatosplenomegaly present Extremity: COMMON NORMALS: normal to inspection, capillary refill normal, no clubbing, cyanosis or edema, no calf tenderness and no pedal edema Skin: COMMON NORMALS: no rashes or lesions noted GENERAL SKIN EXAM: no rashes or lesions noted Course Vital Signs: Vital signs: Vital Signs Temperature 99.4 F 09/14/25 07:18 Pulse Rate 65 09/14/25 11:39 Respiratory Rate 17 09/14/25 11:39 Blood Pressure 111/52 09/14/25 11:39 Pulse Oximetry 91 09/14/25 11:39 Oxygen Delivery Me thod Nasal Cannula 09/14/25 07:18 Oxygen Flow Rate 2 09/14/25 03:40 MDM - Recheck/Abnormal Lab/Rx Medical Decision Making Medical decision making Social determinants: Patient does have adequate social support I reviewed the patient's medical record. I reviewed the patient's current home meds. Alternate historians: Significant other at the bedside EMS. Also contacted dialysis clinic Differential diagnosis: Accelerated hypertension volume overload Lab Review: Labs reviewed as found in chart Anemia consistent with findings in the past. Actually slightly improved. No thrombocytopenia potassium at 5.2 creatinine 3.2 liver functions normal. Imaging:None Assessment of risk Level of risk: High Hospitalization considerations: Patient has accelerated hypertension unresponsive to dictations. Started on IV drip. Reexamination: Unchanged Assessment and plan: Persistent accelerated hypertension she denies chest pain or shortness of breath. Will admit. Continue labetalol drip discussed with hospitalist orders written. Labetalol was used as patient listed allergy to nifedipine so we did not start on nicardipine at this time. Lab Data 09/14/25 02:36 09/14/25 02:32 Radiology Impressions Chest X-Ray 09/11/25 13:04 IMPRESSION: 1. Right-sided double-lumen dialysis catheter terminating in the lower one third of the SVC. 2. Cardiac enlargement with findings of acute congestive heart failure and prominent left-sided pleural effusion. Laboratory Results WBC 9.65 10^3/uL (3.29-11.43) 09/09/25 15:48 RBC 2.93 10^6/uL (3.85-5.65) L 09/09/25 15:48 Hgb 9.40 g/dL (11.27-16.99) L 09/09/25 15:48 Hct 30.1 % (36-47) L 09/09/25 15:48 MCV 102.7 fl (85-98) H 09/09/25 15:48 MCH 32.1 pg (27-33) 09/09/25 15:48 MCHC 31.2 g/dL (30-55) 09/09/25 15:48 RDW 14.7 % (12.1-15.1) 09/09/25 15:48 Plt Count 275 10^3/cmm (157-399) 09/09/25 15:48 MPV 9.7 fL (7.4-10.4) 09/09/25 15:48 Neut % (Auto) 84.6 % 09/09/25 15:48 Lymph % (Auto) 6.5 % 09/09/25 15:48 [place] % (Auto) 6.5 % 09/09/25 15:48 Eos % (Auto) 1.0 % 09/09/25 15:48 Baso % (Auto) 0.7 % 09/09/25 15:48 Neut # (Auto) 8.15 10^3/uL (1.8-7.7) H 09/09/25 15:48 Lymph # (Auto) 0.6 10^3/uL (0.8-4.8) L 09/09/25 15:48 [place] # (Auto) 0.6 10^3/uL (0.2-0.9) 09/09/25 15:48 Eos # (Auto) 0.1 10^3/uL (0.0-0.8) 09/09/25 15:48 Baso # (Auto) 0.1 10^3/uL (0.0-0.1) 09/09/25 15:48 Nucleated RBC % (auto) 0 % 09/09/25 15:48 Nucleated RBCs # 0.0 /100WBC 09/09/25 15:48 Sodium 136 mmol/L (136-145) 09/09/25 15:48 Potassium 5.2 mmol/L (3.5-5.1) H 09/09/25 15:48 Chloride 99 mmol/L (98-107) 09/09/25 15:48 Carbon Dioxide 25 mmol/L (22-29) 09/09/25 15:48 Anion Gap 17.2 (5-19) 09/09/25 15:48 BUN 25 mg/dL (8-23) H 09/09/25 15:48 Creatinine 3.2 mg/dL (0.5-0.9) H 09/09/25 15:48 GFR Calculation 14.6 mL/min (90-130) L 09/09/25 15:48 Glucose 113 mg/dL (65-115) 09/09/25 15:48 Calculated Osmolality 287 mOsm/kg (285-295) 09/09/25 15:48 Calcium 9.2 mg/dL (8.5-10.5) 09/09/25 15:48 Total Bilirubin 0.4 mg/dL (0.15-1.2) 09/09/25 15:48 AST 15 U/L (0-32) 09/09/25 15:48 ALT 8 U/L (0-33) 09/09/25 15:48 Alkaline Phosphatase 82 U/L (35-105) 09/09/25 15:48 Total Protein 6.1 g/dL (6.6-8.7) L 09/09/25 15:48 Albumin 3.6 g/dL (3.5-5.2) 09/09/25 15:48 Globulin 2.5 g/dL (1.3-4.6) 09/09/25 15:48 All radiology interpretation(s) finalized by discharge EKG Data EKG 1: I personally reviewed and interpreted this EKG as follows: Interpretation: EKG 09/09/2025 1514 sinus rhythm rate of 69 AR interval 125 QTc [address] No acute ST changes noted. No ST elevation. Compared to the EKG 08/05/2025 no significant changes. Discharge Plan Discharge Patient Disposition: Admitted As Inpatient Admit Provider: Wolf Wilder Clinical Impression: Accelerated hypertension, ESRD (end stage renal disease) Condition: Stable Discharge Diet: Usual diet Discharge Activity: Increase activity as tolerated Coding Level of Care Code ED Wood Boatbuilder for Chg Rashaad
[2025-09-09] MEDS: labetalol 5 mg/mL SDV 20mL 10 MG IVP (16:48)
[2025-09-09] MEDS: hyDRALAzine 20 mg/mL INJ 1 mL IVP (16:49)
--- OUTSIDE RECORDS SUMMARY | 2025-09-09 16:49 | XMS_ITS | Clinical Summary ---
Author Organization [facility] Facility Address [address] [place] [address] Care Team Providers Care Director Medical Writing Name Role Phone Unavailable Primary Care Provider [...] Encounters Date Type Department Care Team Description 09/02/2025 Orders Only [facility], [facility] [address] [place] [address] Jerilyn Mike MD 09/02/[address] [place] [address], [facility] [address] [place] [address] Krupa Latif NP End stage renal disease; Dependence on renal dialysis 08/27/2025 Orders Only [facility], [facility] [address] [place] [address] Jerilyn Mike MD 08/25/2025 Treatment [facility], [facility] [address] [place] [address] Jerilyn Mike MD End stage renal disease; Dependence on renal dialysis 08/20/2025 Orders Only [facility], [facility] [address] [place] [address] Jerilyn Mike MD 08/18/[address] [place] [address] Nephrology [facility], [facility] [address] [place] [address] Krupa Latif, LUIS End stage renal disease; Dependence on renal dialysis 08/13/2025 Orders Only [facility], [facility] [address] [place] [address] Jerilyn Mike MD 08/11/2025 [facility], [facility] [address] [place] [address] Krupa Latif NP End stage renal disease; Dependence on renal dialysis 08/05/2025 Treatment [facility], [facility] [address] [place] [address] Jerilyn Mike MD End stage renal disease; Dependence on renal dialysis 07/30/2025 Orders [facility], [facility] [address] [place] [address] Jerilyn Mike MD 07/28/2025 [facility], [facility] [address] [place] [address] Krupa Latif NP End stage renal disease; Dependence on renal dialysis 07/18/2025 Orders Only [facility], [facility] [address] [place] [address] Jerilyn Mike MD 07/16/2025 Orders Only [facility], [facility] [address] [place] [address] Jerilyn Mike MD 07/16/[address] [place], [place] [address]rology [facility], [facility] [address] [place] [address] Cat Leon, LUIS End stage renal disease; Dependence on renal dialysis 07/09/2025 Orders Only [facility], [facility] [address] [place] [address] Ollie Benito 07/09/[address] [place] [address] Nephrology [facility], [facility] [address] [place] [address] Krupa Latif NP End stage renal disease; Dependence on renal dialysis 06/30/[address] [place] [address] Nephrology [facility], [facility] [address] [place] [address] Jerilyn Mike MD End stage renal disease; Dependence on renal dialysis 06/25/[address] [place] [address] Nephrology [facility], [facility] [address] [place] [address] Krupa Latif NP End stage renal disease; Dependence on renal dialysis 06/16/[address] [place] [address] Nephrology [facility], [facility] [address] [place] [address] Krupa Latif NP End stage renal disease; Dependence on renal dialysis 06/11/[address] [place] [address] Nephrology [facility], [facility] [address] [place] [address] Cat Leon NP End stage renal disease; Dependence on renal dialysis from Last 3 Months Social History Tobacco [...] Exam 05/05/2025 Diabetes: Visual Foot Exam 05/05/2025 Pneumococcal Vaccine: 50+ Ye ars (3 of 3 - PCV20 or PCV21) 07/09/2025 07/09/2020, 08/07/2015 Diabetes: Hemoglobin A1C 07/22/2025 04/21/2025, 0710/2024 Influenza Vaccine Completed 07/02/2025, , 07/09/2020, Additional history exists Procedures Procedure Name Priority Date/Time Associated Diagnosis Comments HEMOGLOBIN Routine 09/02/2025 HEMOGLOBIN Routine 08/27/2025 HEMOGLOBIN Routine 08/20/2025 SPECTRA O[facility]IE LAB RESULTS Routine 08/13/2025 FERRITIN Routine 08/13/2025 HEPATITIS B SURFACE ANTIGEN W/REFL CONFIRM Routine 08/13/2025 DIFFERENTIAL WITH WBC Routine 08/13/2025 CBC Routine 08/13/2025 PLATELET COUNT Routine 08/13/2025 POST DIALYSIS BUN Routine 08/13/2025 IRON AND TIBC Routine 08/13/2025 ALBUMIN Routine 08/13/2025 PROTEIN, TOTAL, SERUM Routine 08/13/2025 PHOSPHATE ( PHOSPHORUS) Routine 08/13/2025 CALCIUM Routine 08/13/2025 CO2, TOTAL Routine 08/13/2025 CHLORIDE Routine 08/13/2025 SODIUM Routine 08/13/2025 BUN Routine 08/13/2025 CREATININE, SERUM Routine 08/13/2025 POTASSIUM Routine 08/13/2025 HEMATOLOGY Routine 07/30/2025 SPECTRA OLLIE LAB RESULTS [...] TRACE ELEMENTS Routine 06/11/2025 HEMATOLOGY Routine 06/11/2025 from Last 3 Months Results * (ABNORMAL) Hemoglobin (09/02/2025) Only the most recent of3 resultswithin the time period is included. Hemoglobin 9.5(L) 11.7 - 14.0 g/dL [facility] 09/02/2025 09/01/2025 12: 17 PM AIRCRAFT CHARTER DISPATCHER Narrative Resulting Agency Comment Performing Organization Information: Site ID: [place] Name: [facility] Address: [address] [place] [phone] Director: Aimee Smart MD Jerilyn Mike MD LAB BLOOD ORDERABLES Final Re sult Performing Organization Address [facility] Co de Phone Number [email or web address] [id number] [place] [phone] * (ABNORMAL) Iron and TIBC (08/13/2025) Pathologist [facility] Iron, Total 111 45 - 160 mcg/dL [facility] TIBC 178(L) 250 - 450 mcg/dL (calc) [facility] Iron Saturation (TSat) 62(H) 16 - 45 % (calc) [facility] 08/13/2025 08/11/2025 9:4 1 AM AIRCRAFT CHARTER DISPATCHER Narrative Resulting Agency Comment Performing Organization Information: Site ID: [place] Name: [email or web address] Address: [address] [place] [phone] Director: Aimee Smart MD Jerilyn Mike MD LAB BLOOD ORDERABLES Final Re sult Performing Organization Address [facility] Co de Phone Number [email or web address] [id number] [place] [phone] * Hepatitis B Surface Ag w/Reflex Confirmation (08/13/2025) Pathologist [facility] Hep B Surface Antigen NON-REACTIVE NON-REACT BA [email or web address] Comment: For additional information, please refer to http://education.[employer]/faq/ODZ284 (This link is being provided for informational/ educational purposes only.) Confirmation CANCELED [facility] Comment:Result canceled by abril erwin. 08/13/2025 08/11/2025 9:4 1 AM AIRCRAFT CHARTER DISPATCHER Narrative Resulting Agency Comment Performing Organization Information: Site ID: [place] Name: [facility] [place] [facility] Address: [address] [place] [address] Director: Aimee Smart MD us Jerilyn Mike MD LAB BLOOD ORDERABLES Final Re sult [facility] [place] [facility] [id number] [place] [phone] * Spectra OLLIE Lab Results (08/13/2025) Only the most recent of3 resultswithin the time period is included. Pathologist [facility] eKt/V ([place]attersall) 1.29 [facility] WSTDKT/V 1.6 [facility] spKt/V Gotch 1.50 [facility] ge Center eNPCR 0.51 [facility] spKt/V (Daugirdas II) 1.51 [facility] eKt/V Gotch 1.27 [facility] e Center PCR 31.16 [facility] nPCR_HD 0.54 [facility] eKdrt/V 1.27 [facility] 08/13/2025 08/13/2025 us Ollie Ordering Provider LAB BLOOD ORDERABLES Final Result [facility] Contact Performing lab Unknown, [place] * Post Dialysis BUN (08/13/2025) Pathologist [facility] BUN Post Dialysis 7 7 - 25 mg/dL [facility] 08/13/2025 08/11/2025 9:4 1 AM AIRCRAFT CHARTER DISPATCHER Narrative Resulting Agency Comment Performing Organization Information: Site ID: [place] Name: [facility]omar Yates Address: [address] [address] Director: Aimee Smart MD Jerilyn Mike MD LAB BLOOD ORDERABLES Final Re sult [facility] [id number] [phone] * (ABNORMAL) Differential with WBC (08/13/2025) WBC 6.9 3.8 - 10.8 Thousand/ uL [facility] Neutrophils Absolute 5,789 1,500 - 7,800 cells/uL [facility] Band Neutrophils Absolute, Manual Count CANCELED 0 - 750 cells/uL [facility] Comment:Result canceled by t he ancillary. Metamyelocytes Absolute CANCELED 0 cells/uL [facility] Comment:Result canceled by t he ancillary. Absolute Myelocytes CANCELED 0 cells/uL [facility] Comment:Result canceled by t he ancillary. Absolute Promyelocytes CANCELED 0 cells/uL [facility] Comment:Result canceled by t he ancillary. Lymphocytes Absolute 435(L) 850 - 3,900 cells/uL [facility] Monocytes Absolute 524 200 - 950 cells/uL [facility] Eosinophils Absolute 83 15 - 500 cells/uL [facility] Basophils Absolute 69 0 - 200 cells/uL [facility] Blasts Absolute CANCELED 0 cells/uL [facility] Comment:Result canceled by t he ancillary. NRBC Absolute CANCELED 0 cells/uL [facility] Comment:Result canceled by t he ancillary. Neutrophils Relative 83.9 % [facility] Bands Absolute CANCELED % [facility] Comment:Result canceled by t he ancillary. Metamyelocytes Percent CANCELED % [facility] Comment:Result canceled by t he ancillary. Myelocytes Relative CANCELED % [facility] Comment:Result canceled by t he ancillary. Promyelocytes Relative CANCELED % [facility] Comment:Result canceled by t he ancillary. Lymphocytes 6.3 % [facility] Variant lymphocytes/100 WBC (Bld) CANCELED 0 - 10 % [facility] Comment:Result canceled by t he ancillary. Monocytes 7.6 % [facility] Eosinophils 1.2 % [facility] Basophils Relative 1.0 % [facility] Blasts CANCELED % [facility] Comment:Result canceled by t he ancillary. nRBC CANCELED 0 /100 WBC [facility] Comment:Result canceled by t he ancillary. Comment(s) CANCELED [facility] Comment:Result canceled by t he ancillary. 08/13/2025 08/11/2025 9:4 1 AM AIRCRAFT CHARTER DISPATCHER Narrative Resulting Agency Comment Performing Organization Information: Site ID: [place] Name: [email or web address] Address: [address] [place] [phone] Director: Aimee Smart MD Jerilyn Mike MD LAB BLOOD ORDERABLES Final Re sult [facility] [address] [place] [phone] * Platelet count (08/13/2025) Platelets 295 140 - 400 Thousand/uL [facility] 08/13/2025 08/11/2025 9:4 1 AM AIRCRAFT CHARTER DISPATCHER Narrative Resulting Agency Comment Performing Organization Information: Site ID: [place] Name: [email or web address] Address: [address] [place] [phone] Director: Aimee Smart MD Jerilyn Mike MD LAB BLOOD ORDERABLES Final Re sult [facility] [address] [address] * (ABNORMAL) CBC (08/13/2025) WBC 6.9 3.8 - 10.8 Thousand/u L [facility] RBC 3.00(L) 3.80 - 5.10 Million/uL [facility] Hemoglobin 9.9(L) 11.7 - 14.0 g/dL [facility] Hematocrit 30.5(L) 35.0 - 45.0 % [facility] MCV 101.7(H) 80.0 - 100.0 fL [facility] MCH 33.0 27.0 - 33.0 pg [facility] MCHC 32.5 32.0 - 36.0 g/dL [facility] Comment: For adults, a slight decrease in the calculated MCHC value (in the range of 30 to 32 g/dL) is most likely not clinically significant; however, it should be interpreted with caution in correlation with other red cell parameters and the patient's clinical condition. RDW 14.2 11.0 - 15.0 % [facility] 08/13/2025 08/11/2025 9:4 1 AM AIRCRAFT CHARTER DISPATCHER Narrative Resulting Agency Comment Performing Organization Information: Site ID: [place] Name: [facility] Address: [address] [phone] Director: Aimee Smart MD Jerilyn Mike MD LAB BLOOD ORDERABLES Final Re sult [facility] [address] [phone] * (ABNORMAL) BUN (08/13/2025) BUN 26(H) 7 - 25 mg/dL [facility] 08/13/2025 08/11/2025 9:4 1 AM AIRCRAFT CHARTER DISPATCHER Narrative Resulting Agency Comment Performing Organization Information: Site ID: [place] Name: [facility] Yates Address: [address] [place] [phone] Director: Aimee Smart MD Jerilyn Mike MD LAB BLOOD ORDERABLES Final Re sult Performing Organization Address [facility] Co de Phone Number [facility] [id number] [place] [phone] * (ABNORMAL) Sodium (08/13/2025) Sodium 131(L) 135 - 146 mmol/L [facility] 08/13/2025 08/11/2025 9:4 1 AM AIRCRAFT CHARTER DISPATCHER Narrative Resulting Agency Comment Performing Organization Information: Site ID: [place] Name: [facility] Yates Address: [address] [place] [phone] Director: Aimee Smart MD us Jerilyn Mike MD LAB BLOOD ORDERABLES Final Re sult Performing Organization Address [facility] de Phone Number [facility] [address] [place] [phone] * (ABNORMAL) Protein, total (08/13/2025) Total Protein 5.2(L) 6.1 - 8.1 g/dL [facility] 08/13/2025 08/11/2025 9:4 1 AM AIRCRAFT CHARTER DISPATCHER Narrative Resulting Agency Comment Performing Organization Information: Site ID: [place] Name: Jomar Yates Address: [address] [place] [phone] Director: Aimee Smart MD us Jerilyn Mike MD LAB BLOOD ORDERABLES Final Re sult Performing Organization Address [facility]/ZIP Co de Phone Number [facility] [id number] [place] [phone] * Potassium (08/13/2025) Potassium 4.7 3.5 - 5.3 mmol/L [facility] 08/13/2025 08/11/2025 9:4 1 AM AIRCRAFT CHARTER DISPATCHER Narrative Resulting Agency Comment Performing Organization Information: Site ID: [place] Name: Jomar Yates Address: [address] [place] [phone] Director: Aimee Smart MD us Jerilyn Mike MD LAB BLOOD ORDERABLES Final Re sult Performing Organization Address [facility] Co de Phone Number [facility] [address] [place] [phone] * Phosphorus (08/13/2025) Phosphorus 3.4 3.0 - 4.5 mg/dL [facility] 08/13/2025 08/11/2025 9:4 1 AM AIRCRAFT CHARTER DISPATCHER Narrative Resulting Agency Comment Performing Organization Information: Site ID: [place] Name: [facility] Yates Address: [address] [place] [phone] Director: Aimee Smart MD us Jerilyn Mike MD LAB BLOOD ORDERABLES Final Re sult Performing Organization Address [facility] Co de Phone Number [facility] [address] [place] [phone] * (ABNORMAL) Ferritin (08/13/2025) Ferritin 1,366(H) 16 - 288 ng/mL [facility] 08/13/2025 08/11/2025 9:4 1 AM AIRCRAFT CHARTER DISPATCHER Narrative Resulting Agency Comment Performing Organization Information: Site ID: [place] Name: Jomar Yates Address: [address] [place] [phone] Director: Aimee Smart MD us Jerilyn Mike MD LAB BLOOD ORDERABLES Final Re sult Performing Organization Address [facility] de Phone Number [facility] [address] [place] [phone] * (ABNORMAL) Creatinine, serum (08/13/2025) Creatinine 4.01(H) 0.50 - 1.05 mg/dL [facility] 08/13/2025 08/11/2025 9:4 1 AM AIRCRAFT CHARTER DISPATCHER Narrative Resulting Agency Comment Performing Organization Information: Site ID: [place] Name: [facility] Address: [address] [place] [phone] Director: Aimee Smart MD us Jerilyn Mike MD LAB BLOOD ORDERABLES Final Re sult Performing Organization Address [facility] de Phone Number [facility] [address] * (ABNORMAL) Chloride (08/13/2025) Chloride 93(L) 98 - 110 mmol/L [facility] 08/13/2025 08/11/2025 9:4 1 AM AIRCRAFT CHARTER DISPATCHER Narrative Resulting Agency Comment Performing Organization Information: Site ID: [place] Name: [facility] Address: [address] [place] [phone] Director: Aimee Smart MD us Jerilyn Mike MD LAB BLOOD ORDERABLES Final Re sult Performing Organization Address [facility] de Phone Number [facility] [address] * CO2 (08/13/2025) Bicarbonate (CO2) 26 20 - 29 mmol/L [facility] 08/13/2025 08/11/2025 9:4 1 AM AIRCRAFT CHARTER DISPATCHER Narrative Resulting Agency Comment Performing Organization Information: Site ID: [place] Name: [facility] Address: [address] [place] [phone] Director: Aimee Smart MD us Jerilyn Mike MD LAB BLOOD ORDERABLES Final Re sult Performing Organization Address [facility] Co de Phone Number [facility] [address] [place] [phone] * (ABNORMAL) Calcium (08/13/2025) Calcium 8.3(L) 8.6 - 10.0 mg/dL [facility] 08/13/2025 08/11/2025 9:4 1 AM AIRCRAFT CHARTER DISPATCHER Narrative Resulting Agency Comment Performing Organization Information: Site ID: [place] Name: Jomar Yates Address: [address] [place] [phone] Director: Aimee Smart MD us Jerilyn Mike MD LAB BLOOD ORDERABLES Final Re sult Performing Organization Address [facility] Number [facility] [address] [place] [phone] * (ABNORMAL) Albumin (08/13/2025) Albumin 3.0(L) 3.6 - 5.1 g/dL [facility] 08/13/2025 08/11/2025 9:4 1 AM AIRCRAFT CHARTER DISPATCHER Narrative Resulting Agency Comment Performing Organization Information: Site ID: [place] Name: [facility] Address: [address] [place] [phone] Director: Aimee Smart MD us Jerilyn Mike MD LAB BLOOD ORDERABLES Final Re sult Performing Organization Address [facility] Co de Phone Number [facility] [address] [phone] * (ABNORMAL) HEMATOLOGY (07/30/2025) Only the most recent of7 resultswithin the time period is included. Hemoglobin 9.7(L) 12.0 - 16.0 g/dL [facility] Hemoglobin x 3 29.1(L) 36.0 - 48.0 % [facility] 07/30/2025 07/31/2025 10: 59 AM CDT Narrative [facility] - 07/31/2025 Unless otherwise specified, test(s) performed at: [facility], [address] [place] [address] TECHNICIAN BIOLOGICAL HEALTH: Baudilio Otoole M.D. For any questions, please call customer service at FREQUENCY:OTHER Resulting Agency Comment Specimen source: Blood us Jerilyn Mike MD LAB BLOOD ORDERABLES Final Re sult Performing Organization Address [facility] Co de Phone Number [facility] See order comments or contact performing lab Unknown, [place] * HD KINETICS (07/18/2025) Only the most recent of3 resultswithin the time period is included. % Urea Reduction 75 65 - 80 % [facility] 07/18/2025 2025 10: 53 AM CDT Narrative Resulting Agency Comment Specimen source: Plasma us Jerilyn Mike MD LAB BLOOD ORDERABLES Final Re sult Performing Organization Address [facility]/ZIP Co de Phone Number [facility] See order comments or contact performing lab Unknown, [place] * POST CHEMISTRY (07/18/2025) Only the most recent of3 resultswithin the time period is included. BUN Post Dialysis 9 6 - 19 mg/dL [facility] 07/18/2025 2025 10: 53 AM CDT Narrative [facility] - 2025 Unless otherwise specified, test(s) performed at: [facility], [address] [place] [address] TECHNICIAN BIOLOGICAL HEALTH: Baudilio Otoole M.D. For any questions, please call customer service at FREQUENCY:OTHER Resulting Agency Comment Specimen source: Plasma us Jerilyn Mike MD LAB BLOOD ORDERABLES Final Re sult Performing Organization Address [facility]/ZIP Co de Phone Number [facility] See order comments or contact performing lab Unknown, [place] * (ABNORMAL) Spectrae Chemistry (07/18/2025) Only the most recent of4 resultswithin the time period is included. BUN 36(H) 6 - 19 mg/dL [facility] 07/18/2025 2025 10: 55 AM CDT [facility]arrative [facility] Unless otherwise specified, test(s) performed at: [facility], [address] [place] [address] TECHNICIAN BIOLOGICAL HEALTH: Baudilio Otoole M.D. For any questions, please call customer service at FREQUENCY:OTHER Resulting Agency Comment Specimen source: Serum us Jerilyn Mike MD LAB BLOOD ORDERABLES Final Re sult Performing Organization Address [facility] de Phone Number [facility] See order comments or contact performing lab Unknown, [place] * IMMUNO CHEMISTRY (07/09/2025) Only the most recent of2 resultswithin the time period is included. Hep B Surface Ag Negative Negative [facility] 07/09/2025 07/11/2025 11: 49 AM CDT Narrative [facility]/2025 Unless otherwise specified, test(s) performed at: [facility], [address] [place] [address] TECHNICIAN BIOLOGICAL HEALTH: Baudilio Otoole M.D. For any questions, please call customer service at FREQUENCY:MONTHLY Resulting Agency Comment Specimen source: Serum us Jerilyn Mike MD LAB BLOOD ORDERABLES Final Re sult Performing Organization Address [facility]/ZIP Co de Phone Number [facility] See order comments or contact performing lab Unknown, [place] * TRACE ELEMENTS (06/11/2025) Aluminum <5 0 - 10 mcg/L [facility] Comment: This test was developed and its performance characteristics determined by [facility]. It has not been cleared or approved by the FDA. The laboratory is regulated under CLIA as qualified to perform high complexity testing. This test is used for clinical purposes. It should not be regarded as investigational or for research. 06/11/2025 06/12/2025 10: 08 AM CDT Narrative [facility] - 06/12/2025 Unless otherwise specified, test(s) performed at: [facility], [address] [place] [address] [employer]: Baudilio Otoole M.D. For any questions, please call customer service at FREQUENCY:MONTHLY Resulting Agency Comment Specimen source: Serum Jerilyn Mike MD LAB BLOOD ORDERABLES Final Re sult Performing Organization Address [facility] Co de Phone Number [place] See order comments or contact performing lab Unknown, [place] from Last 3 Months Insurance [facility] Medicare Medicaid [place] ([facility])
--- OUTSIDE RECORDS SUMMARY | 2025-09-09 16:50 | XMS_ITS | Continuity of Care Document ---
Author Organization [facility] [place], [facility] ([facility]) Address [address] [place] [address] Assessment No assessment recorded. Plan of Treatment Reminders Order Date Submit Date Provider Last Modified By Organization Details Last Modified Time Details Appointments GUO OV 025 04:00PM Ael Guo MD Not available Not available Not available Lab None record ed. Referral None record ed. Procedures None record ed. Surgeries None record ed. Imaging None record ed. Medication Orders None record ed. Patient TargetsNo targets recorded. Patient Instructions Encounter Date Encounter Id Patient Instructions Last Modified By Organization Details Last Modified Time 09/01/2025 [id number] Planning to d/c home, will need home health walker and wheelchair. Blood pressure too high, increase clonidine patch to 0.3 [id number] Not available 09/01/2025 14:41:24 Reason for Referral None Reported. Problems Name Problem SNOMED Code Status Onset Date Resolution Date Notes Provider Name and Address Organization Details Recorded Time Inflammat ory disease of liver 790587759 Active 2021 Hepatitis ; Story: C; Recorded 2 10:18AM by Erin Zuleta, Office Visit; Promoted; acuity set as *; [facility] 5 10:35:11 Hypertens adry disorder 17503216 Active 2024 [facility] 5 08:56:32 Osteoarth ritis 903389209 Active 2024 [facility] 5 08:56:42 Depressiv e disorder 30444018 Active 2024 CAROL saucedo, [facility], BetzyCMarie 5 11:51:54 Macrocyto sis 620442596 Active 2024 CAROL saucedo, [facility], BetzyCMarie 5 08:57:01 Type 1 diabetes mellitus 46999921 Active 2024 CAROL DENIS null, [facility] 5 11:19:19 Glaucoma 84237808 [facility] 2024 [facility] 5 11:51:23 Hyperchol esterolem ia 82524678 Active 2024 CAROL DENIS [facility], CarolinaL.CMarie 5 11:51:35 Closed fracture of right wrist 489035017522 75232 Active 2024 JAD MANNING [facility], L.L.CMarie 5 14:21:33 Problem Notes None recorded. Procedures Surgical History Date Name Laterality Status Provider Name and Address Organization Details Recorded Time 2022 Breast augmentation w/implt completed AUBR [facility], [facility] 3 12:07:09 2021 esophagogastroduodenoscopy completed CAROL RYAN PRINCE MALCOLM [facility], LMarieL.CMarie 5 10:37:39 2019 mammography completed CAROL DENIS [facility], CarolinaLMarie[facility] 5 08:57:57 2009 colonoscopy completed CAROL DENIS [facility], LMarieLMarieCMarie 5 10:37:11 2001 transplantation of pancreas completed Tam Guo MD [address] [place] [address], [phone], [facility], [place] 5 11:48:58 extraction of cataract completed CAROL DENIS [facility], [place] 5 08:58:11 transplant of kidney completed [facility] 5 08:58:39 hysterectomy completed CAROL DENIS [facility] [place] 5 08:58:48 Shoulder joint surgery completed [facility] 5 08:59:00 Imaging Results None recorded. Procedure Notes None recorded. Medical Equipment None Reported. Allergies Allergen ID Allergen Name Allergen Category Reaction Reaction Severity Criticality Documentation Date Start Date Code Code System Note Provider Name and Address Organization Details Recorded Time 69777 atorvasta tin calcium propylene glycol solvate Not available other Not available Not available 05/06/2023 11253 93 RxNorm React ion: STATI NS _deat hly aller gic_; Comme nt: Recor ded 07/15 10:18 AM by Erin Zuleta Offic e Visit ; Berhane low; Dora queen ce: *; Reaso n: Drug aller gy; ; Not Available [facility] 3 02:28:10 32754 codeine hydrochlo ride Not available edema Not available Not available 05/06/2023 35381 66 RxNorm React ion: Edema ; Comme nt: Recor ded 07/15 10:18 AM by Erin Zuleta Offic e Visit ; Berhane queen ce: *; ; Not Available [facility] 3 02:28:10 01855 Substance with sulfonami de structure and antibacte rial mechanism of action (substanc e) medicatio n Not available Not available Not available 05/06/2023 74337 8003 SNOMED Comme nt: Recor ded 07/15 10:18 AM by Lucas Kern e Visit ; Berhane low; Dora queen ce: *; ; Not Available [facility] 3 02:28:10 79997 amlodipin e medicatio n hives swelling Not available Not available high 08/28/20252016 10194 RxNorm Not Available avery - External Data Service - prod 5 06:45:06 38429 simvastat in medicatio n other Not available high 08/28/20252023 75684 RxNorm Not Available aevry - External Data Service - prod 5 06:45:06 57412 trazodone medicatio n nausea Not available low 08/28/20252018 72523 RxNorm Not Available avery - External Data Service - prod 5 06:45:06 97606 cranberry preparati on food,medi cation Not available Not available high 08/28/20252024 44706 3 RxNorm Not Available avery - External Data Service - prod 5 06:45:07 92082 iodine medicatio n Not available Not available low 08/28/20252024 5933 RxNorm Not Available avery - External Data Service - prod 5 06:45:07 24654 isosorbid e medicatio n hives Not available high 08/28/20252024 6057 RxNorm Not Available avery - External Data Service - prod 5 06:45:07 01961 povidone- iodine medicatio n Not available Not available low 08/28/20252002 8611 RxNorm Aller gy recor ded in SMS: BETAD INE~R eacti ons: RASH Not Available avery - External Data Service - prod 5 06:45:07 08386 nifedipin e medicatio n edema Not available high 08/28/20252024 7417 RxNorm Not Available avery - External Data Service - prod 5 06:45:07 872 codeine medicatio n rash moderate low 01/09/2023 2670 RxNorm CAROL [facility]ucedo [facility] 3 12:43:50 Medications Name Sig Start Date [...] Not Available Not Available No t Available clonidine HCl 0.1 mg tablet TAKE 1 TABLET BY MOUTH THREE TIMES DAILY active Not Available Not Available No t Available carvedilo l 12.5 mg tablet TAKE 2 TABLETS BY MOUTH TWICE DAILY WITH FOOD active Not Available Not Available No t Available loperamid e 2 mg capsule TAKE 1 CAPSULE BY MOUTH THREE TIMES DAILY NEEDED active Not Available Not Available No t Available cefpodoxi me 200 mg tablet TAKE 1/2 (ONE-JOSE F) TABLET BY MOUTH EVERY 12 HOURS FOR 10 DAYS TAKE WITH FOOD 01/22 completed Not Available Not Available Not Available clonidine 0.2 mg/24 hr weekly transderm al patch APPLY 1 PATCH TOPICALL Y EVERY 7 DAYS active Not Available Not Available No t Available cephalexi n 250 mg capsule TAKE [...] completed Not Available Not Available Not Available isosorbid e mononitra te ER 60 mg tablet,ex tended release 24 hr TAKE 1 TABLET BY MOUTH TWICE DAILY active Not Available Not Available No t Available magnesium oxide 400 mg (241.3 mg magnesium ) tablet TAKE 1 TABLET BY MOUTH EVERY DAY active Not Available Not Available No t Available nifedipin e ER 60 mg tablet,ex tended release 24 hr TAKE 1 TABLET BY MOUTH EVERY DAY [...] completed Not Available Not Available Not Available hydralazi ne 100 mg tablet TAKE 1 TABLET BY MOUTH THREE TIMES DAILY active Not Available Not Available No t Available bumetanid e 0.5 mg tablet TAKE ONE TABLET BY MOUTH EVERY MONDAY, MONDAY, MONDAY AND MONDAY active Not Available Not Available No t Available nitroglyc steven 0.4 mg sublingua l tablet TAKE 1 TABLET BY MOUTH NEEDED FOR CHEST PAIN. THEN REPORT TO ER. MAX DAILY DOSE OF 3 TABLETS active Not Available Not Available No t Available docusate sodium 100 mg capsule TAKE 1 CAPSULE BY MOUTH TWICE DAILY active Not Available Not Available No t Available hydralazi ne 50 mg tablet TAKE 1 TABLET BY MOUTH THREE TIMES DAILY (HOLD FOR SYSTOLIC PRESSURE GREATER THAN 135) active Not Available Not Available No t Available clonidine 0.3 mg/24 hr weekly transderm al patch APPLY ONE PATCH TO CLEAN SKIN ONCE EVERY MONDAY active Not Available Not Available No t Available nifedipin e ER 60 mg tablet,ex tended release TAKE 1 TABLET BY MOUTH ONCE DAILY AT BEDTIME active Not Available Not Available No t Available losartan 100 mg tablet TAKE 1 TABLET BY MOUTH EVERY DAY active Not Available Not Available No t Available fluticaso ne propionat e 50 mcg/actua tion nasal spray,jose pension USE 1 SPRAY each nostril TWICE DAILY active Not Available Not Available No t Available tacrolimu s 0.5 mg capsule, immediate -release TAKE 3 CAPSULES BY MOUTH TWICE DAILY active Not Available Not Available No t Available Benadryl Allergy 25 mg tablet active 0; Recorded 02/17/20 22 1:41PM by Ronaldo Mccarty, Office Visit; Not Available Not Available Not Available enoxapari n 30 mg/0.3 mL subcutane ous syringe INJECT 1 SYRINGEF UL ONCE DAILY active Not Available Not Available No t Available ezetimibe 10 mg tablet TAKE 1/2 [...] Available Flonase each nostril BID 01/22 completed 52180; Recorded 02/24/20 22 9:46AM by Ronaldo Mccarty (Authori sheridan through Ale Guo MD), Refill Request; [...] 0; Recorded 02/17/20 22 1:42PM by Ronaldo Lul, Office Visit; Not Available Not Available Not Available Cozaar active 0; Recorded 02/17/20 1:43PM by Ronaldo Mccarty, Office Visit; Not Available Not Available Not Available Magnesium -Oxide qd 01/22 completed 0; Recorded 02/17/20 22 1:44PM by Ronaldo Mccarty, Office Visit; Not Available Not Available Not Available Vitamin qd 01/22 completed VO CH/jl; 09553; Recorded 08/17/20 18 4:59PM by Vicky Ngo [...] t Available Vitals Date Recorded Body height Provider Name an d Address Organization Details Last Updated DateTime 09/01/2025 157.48 cm SARAY MITESH [facility] 09/01/2025 14:37:48 Social History Question Answer Notes LastModified by Organizat ion Details LastModified Time Tobacco Smoking Status Former Smoker CAROL saucedo [facility] 01/22/2025 11:21:29 At What Age Did You Start Smoking Tobacco? 18 Information not available 01/09/2023 How Much Tobacco Do You Smoke? 1 PPW [email or web address] Information not available 01/09/2023 Sex: Unknown Functional Status None recorded. Mental Status None recorded. Family History Relationship Description Onset Age of this Age Resolved Age Notes LastModified by Organization Details LastModified Time Father Myocardial infarction 78 [email or web address] Not available 11:20:41 Mother Diabetes mellitus [email or web address] Not available 01/07 11:20:53 Brother Myocardial infarction 36 [email or web address] Not available 11:21:13 Medical History Condition Response Coronary Artery Disease N Gout N Other N Kidney Stones N Blood Diseases N Hyperthyroidism N Blood Transfusion N Breast Cancer N COPD N Depression N Lung Disease N Hypothyroidism N Defects or Inherited Disease N Developmental [...] purified surface antigen) 0 completed Not Available [facility] 09/01/2025 12:53:04 Influenza, split virus, trivalent, PF 5 completed Not Available [facility] 09/01/2025 12:53:04 Pneumococcal conjugate PCV 13 5 completed Not Available [facility] 09/01/2025 12:53:04 Tdap 6 completed Not Available [facility] 09/01/2025 12:53:04 Influenza, split virus, trivalent, PF 8 completed Not Available [facility] 09/01/2025 12:53:04 Influenza, split virus, quadrivalent, PF 9 completed Not Available [facility] 09/01/2025 12:53:04 Hep B, adult 0 completed Not Available [facility] 09/01/2025 12:53:04 Hep A, adult 0 completed Not Available [facility] 09/01/2025 12:53:04 COVID-19, mRNA, LNP-S, PF, 100 mcg/0.5mL dose or 50 mcg/0.25mL dose 1 completed Not Available [facility] 09/01/2025 12:53:04 Influenza, split virus, quadrivalent, PF 1 completed Not Available [facility] 09/01/2025 12:53:04 COVID-19, mRNA, LNP-S, PF, 100 mcg/0.5mL dose or 50 mcg/0.25mL dose 1 completed Not Available [facility] 09/01/2025 12:53:04 COVID-19, mRNA, LNP-S, PF, 100 mcg/0.5mL dose or 50 mcg/0.25mL dose 2 completed Not Available [facility] 09/01/2025 12:53:04 Influenza, split virus, trivalent, preservative 4 completed Not Available [facility] 05/06/2023 02:27:37 Influenza, split virus, trivalent, preservative 7 completed Not Available [facility] 05/06/2023 02:27:37 Past Encounters Encounter ID Performer Location Encounter Start Date Encounter Closed Date Diagnosis/Indication Diagnosis SNOMED-CT Code Diagnosis ICD10 Code Diagnosis IMO Codes Diagnosis Note [id number] DO BJORN Machado ([facility]) [address] [place] [phone] 5 08/28/2025 09:17:07 08/31/2025 14:01:45 [id number] DO BJORN Machado ([facility]) [address] [place] [id number] 5 09/01/2025 12:52:54 09/09/2025 13:50:25 Inflammatory disease of liver 374590491 K75.9 Depressive disorder 3548 9007 F32.A Hypertensive disorder 38 679192 I10 Type 1 rita betes mellitus 24249120 E10.9 Health Concerns Section Related Observation LastModified by Organization Detai ls LastModified Time None Recorded Concern Status LastModified by Organization Details LastModified Time None Recorded Payers Encounter Date Sequence Insurance Name Policy Number Policy Pereira Covered Member ID Pereira Member ID Guarantor Name 09/01/2025 2 [place] Yu Nunez [id number] Yu Nunez 09/01/2025 1 [facility] (MEDICARE REPLACEMENT/A DVANTAGE - HMO) Yu Nunez [id number] Yu Nunez Notes Date Note Type Note Provider Name and Address Organization Details Recorded Time 09/01/20 25 text/htm l Hypertension IM/FMReported by PatientHPIFor associated symptoms, patient reportsfatigueandheadachesbut reportsno shortness of breath,no palpitations, andno tachycardia. For quality, patient reportshere for check-upandfatigue. For alleviating factors, patient reportsmedication. For self care, patient reportsnon-smoker.ROS as noted in the HPI visit for d/c orders. Lauri Logan DO [address] [place], [address], [facility] 09/07/2025 16:05:39 OBGyn Episode No OBEpisode recorded.
--- OUTSIDE RECORDS SUMMARY | 2025-09-09 16:50 | XMS_ITS | Encounter Summary ---
Author Organization [place] [facility], [facility] Address [address] [facility] [address] [place] [address] Phone Care Team Providers Care Maintenance Team Member Name Role Phone Unavailable Primary Care Provider Unavailabl e Encounter Details Date Type Department Care Team (Late st Contact Info) Description 09/02/2025 Orders Only [place] [facility] [address] [place] [address] Jerilyn Mike MD [address] [facility] [address] [place] [address] Social History Tobacco Use Types [...] Date/Time Associated Diagnosis Comments HEMOGLOBIN Routine 09/02/2025 documented in this encounter Results * (ABNORMAL) Hemoglobin (09/02/2025) Hemoglobin 9.5(L) 11.7 - 14.0 g/dL [facility] 09/02/2025 09/01/2025 12: 17 PM 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
--- OUTSIDE RECORDS SUMMARY | 2025-09-09 16:50 | XMS_ITS | Encounter Summary ---
Author Organization [place] [facility], [facility] Address [address] [address] Phone Care Team Providers Care Bingo Checker Name Role Phone Unavailable Primary Care Provider Unavailabl e Encounter Details Date Type Department Care Team (Late st Contact Info) Description 09/02/2025 Treatment [facility], [facility] [address] [facility] [address] [place] [address] Dana Latif NP [address] [address] End stage renal disease; Dependence [...] Dialysis Note - Dana Latif NP - 09/02/2025 12:00 AM CST BASIC NOTE Patient: Yu Nunez : 1960 Note Author: DANA LATIF NP Service Date: 09/02/2025 This patient was personally seen [id number] for a basic visit as part of routine monthly dialysis care for end stage renal disease. Attending Mechanical Maintenance: ORLANDO RABAGO Dialysis Location: [facility] Schedule: Shift: 1 OVERVIEW COMMENTS: [facility] reports ongoing refusal to take oral medications. BP remains severely high, stroke risk continues. Patient reports taking medications when they remember to bring them . Of note, when living at home, has history of not taking medications. Apparently, she is discharging from [facility] back to living with SO today. Sat with patient for twenty minutes, discussing, reviewing medication compliance, stroke risk, cardiovascular damage from elevated BP and need for consistent medication compliance. HOME MEDICATIONS COMMENTS: See blood pressure notes above Current [facility] Medications ASA 81 tablet Take 1 tablet by mouth once a day. bumetanide 0.5 mg tablet 1 tablet by mouth once a day. [on non-dialysis days] carvedilol 25 mg tablet Take 1 tablet by mouth once a day. [take with food.] clonidine HCl 0.1 mg tablet Take 1 tablet by mouth three times a day. Daily-Deon (with folic acid) 400 mcg tablet Take 1 tablet by mouth once a day. docusate sodium 100 mg capsule Take 1 capsule by mouth twice a day. enoxaparin 30 mg/0.3 mL syringe Inject 30 mg subcutaneously once a day. fluticasone propionate 50 mcg/actuation spray,suspension Kirksey 1 spray into both nostrils twice a day. hydralazine 100 mg tablet Take 1 tablet by mouth three times a day. [HOLD if SBP ?135 mmHg] hydralazine 50 mg tablet Take 1 tablet by mouth three times a day. [HOLD for SBP ?135 mmHg] hydrocodone-acetaminophen 5-325 mg tablet Take 1 tablet by mouth every six hours as needed for pain. loperamide 2 mg capsule Take 1 by mouth three times a day as needed. losartan 50 mg tablet Take 1 tablet by mouth twice a day. MagOx 400 mg (241.3 mg magnesium) tablet Take 1 tablet by mouth once a day. mycophenolate sodium 180 mg tablet,delayed release (DR/EC) Take 1 tablet by mouth four times a day. prednisone 5 mg tablet Take 1 tablet by mouth once a day. silver sulfadiazine 1% cream Apply to affected area twice a day. [buttocks] tacrolimus 0.5 mg capsule Take 3 capsule by mouth twice a day. [TAKE 3 CAPS DAILY AND 3 CAPS EVERY EVENING] Vitamin D3 25 mcg (1,000 unit) capsule Take 1 capsule by mouth once a day. Current [facility] Allergies Allergen: amlodipine Reaction: Unknown Allergen: CODEINE Reaction: Shortness of breath Swelling Severity: Severe Severe Allergen: IODINE Reaction: Skin Rash Severity: Severe Allergen: isosorbide Reaction: Unknown Allergen: simvastatin Reaction: Abdominal Pain Severity: Moderate Allergen: trazodone Reaction: Nausea/Vomiting Lost Consciousness Severity: Moderate Severe DIALYSIS PRESCRIPTION Treatment Data Treatment Date: 09/02/2025 started at: 6:20 AM Dialysate / Machine Temp (prescribed): 37.0*C Dialysate / Machine Temp (actual): 37.1*C BFR (prescribed): 400 BFR (average delivered): 410 DFR (prescribed): Manual 800 DFR (average delivered): 800 Prescribed Time: 03:30 Actual Time: 03:31 EDW (kg): 50.0 Dialyzer: FX CorAL 60 Dialysate: 3.0 K, 2.5 Ca, 1.0 Mg, 100 Dextrose (G3251) Sodium: 138 Bicarb: 32 Pre Dialysis Vitals Pre BP Sit: 243/128 Pre Wt (kg): 53.0 EDW Deviation (kg): 3.0 Temp: 97.9*F Post Dialysis Vitals Post BP Sit: 185/95 Post Wt (kg): 50.9 TREATMENT MEDICATIONS ORDERS Heparin Sodium (Porcine) 1,000 Units/mL Catheter Lock Arterial 2500 units Arterial Red Port Every Treatment Post Dialysis 06/04/2025 - 06/03/2026 Heparin Sodium (Porcine) 1,000 Units/mL Catheter Lock Venous 2500 units Venous Blue Port Every Treatment Post Dialysis 06/04/2025 - 06/03/2026 Heparin Sodium (Porcine) 1,000 Units/mL Systemic 1000 units IVP Every Treatment 06/04/2025 - 06/03/2026 Iron Sucrose (Venofer) 50 mg IVP 1X Week 08/18/2025 - 08/17/2026 Mircera 75 mcg IVP Every 4 weeks During Dialysis 07/14/2025 - 07/13/2026 Vitamin D (Calcitriol) Oral 0.5 mcg ORAL Every Treatment 06/18/2025 - 06/17/2026 BP AND FLUID ASSESSMENT COMMENTS: See notes above regarding BP therapy compliance. 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 IDWG (kg) 1.2 - 09/02/2025 3.5 - 08/31/2025 2.0 - 08/29/2025 Post BP Sit 185/95 - 09/02/2025 199/104 - 08/31/2025 204/112 - 08/29/2025 Post Wt (kg) 50.9 - 09/02/2025 51.8 - 08/31/2025 50.6 - 08/29/2025 EDW (kg) 50.0 - 09/02/2025 48.5 - 08/31/2025 46.7 - 08/29/2025 Deviation (kg) 0.9 - 09/02/2025 3.3 - 08/31/2025 3.9 - 08/29/2025 ADEQUACY ASSESSMENT spKt/V (Daugirdas II) 1.51 (08/13/25) 1.65 (07/18/25) 1.85 (07/09/25) eKdrt/V 1.27 (08/13/25) 1.40 (07/18/25) 1.57 (07/09/25) % Urea Reduction 75 (07/18/25) 80 (07/09/25) 78 (06/11/25) BUN 26 (08/13/25) 36 (07/18/25) 56 (07/09/25) BUN Post Dialysis 7 (08/13/25) 9 (07/18/25) 11 (07/09/25) Creatinine 4.01 (08/13/25) 4.06 (07/09/25) 3.88 (06/11/25) Bicarbonate (CO2) 26 (08/13/25) 23 (07/09/25) 24 (06/11/25) Sodium 131 (08/13/25) 135 (07/09/25) 137 (06/11/25) ACCESS ASSESSMENT Vascular access examined. COMMENTS: Refusing to obtain access: educated CVCatheter Tunneled Neck Active (In Use) - 06/02/2025 Placed - 05/29/2025 ANEMIA ASSESSMENT Hemoglobin 9.0 (08/27/25) 8.8 (08/20/25) 9.9 (08/13/25) Iron Saturation (TSat) 62 (08/13/25) 17 (07/09/25) 18 (06/11/25) Ferritin 1,366 (08/13/25) 284 (06/11/25) 135 (06/04/25) Iron, Total 111 (08/13/25) Iron 41 (07/09/25) 42 (06/11/25) 90 (06/04/25) TIBC 178 (08/13/25) 235 (07/09/25) 229 (06/11/25) MCV 101.7 (08/13/25) 102 (07/09/25) 98 (06/11/25) Folate 12.8 (06/04/25) Vitamin B-12 1,333 (06/04/25) Platelets 295 (08/13/25) 218 (07/09/25) 244 (06/11/25) BMM ASSESSMENT Calcium 8.3 08/13/25 8.4 07/09/25 7.6 06/11/25 Corrected Calcium 8.9 07/09/25 8.3 06/11/25 8.6 06/04/25 Phosphorus 3.4 08/13/25 4.9 07/09/25 3.9 06/11/25 Calcium Phosphorus Product 41 07/09/25 30 06/11/25 33 06/04/25 PTH 892 06/11/25 913 8/27/25 Vitamin D, 25-OH, Total 25.1 06/04/25 Magnesium 2.0 06/11/25 1.9 06/04/25 Alkaline Phosphatase 60 06/11/25 45 06/04/25 Aluminum ?5 06/11/25 ?5 06/04/25 NUTRITION ASSESSMENT Albumin 3.0 08/13/25 3.4 07/09/25 3.1 06/11/25 Potassium 4.7 08/13/25 4.5 07/09/25 5.3 06/11/25 eNPCR 0.51 08/13/25 0.71 07/18/25 0.98 07/09/25 ADDITIONAL LABS WBC 6.9 (08/13/25) 6.9 (08/13/25) 12.84 (07/09/25) Hepatitis B Surface Ab ?10 (06/04/25) ALT (SGPT) 15 (05/26/25) 9 (04/24/25) AST (SGOT) 17 (05/26/25) 15 (04/24/25) Signed by: DANA LATIF NP on 09/02/2025 at 01:36:23 PM Transcribed by: DANA LATIF NP on 09/02/2025 at 01:36:23 PM documented in this encounter Plan of Treatment Not on file documented as of this encounter Visit Diagnoses Diagnosis End stage renal disease Dependence on renal dialysis documented in this encounter
[2025-09-09] MEDS: nitroglycerin drip 50 MG/250 ML PREMIX IV (19:05)
--- NOTE | 2025-09-09 20:08 | PC.NURSE ---
This RN went into pts. room and found patient covered in vomit slouched over and vomit on the floor. Pt. was diaphoretic , pale colored and heart rate was showing tachy at 140hr. This RN asked Pt. whats wrong and she said I'm sick and he gave me something This RN said who gave you something? Pt. said Epifanio. This RN said what did you take from him she said i don't know. This RN asked was it a RX medication? pt. said NO and said it was a drug but didnt know what. this RN said a street drug and pt. said yes. This RN notified charge poster and hospitalist. This RN called Epifanio to see what was given, Epifanio denied giving anything and said he removed a Clonidine patch at ~ 1954.
--- NOTE | 2025-09-09 21:51 | PM.HP ---
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 She states she did not complete her dialysis session this past Monday due to poor weather of note. But on the day of presentation, she noticed her BP was high and had associated dizziness. She mentions simply feeling, sick and did not offer much more detail. She does endorse nausea but no headache, chest pain, or back pain. She reports an allergy to cardene to which she gets puffy. She does not recall all her medications and defers to her boyfriend on this topic. Medications/Allergies Home Medications ?Medication ?Instructions ?Recorded ?Confirmed ?Last Taken ?Type ascorbic acid (vitamin C) 500 mg 500 mg PO BID@0700,1730 09/13/20 09/09/25 08/05/25 History tablet (Vitamin C) aspirin 81 mg chewable tablet 81 mg PO DAILY@2100 09/13/20 08/19/25 08/04/25 History loperamide 2 mg capsule 2 mg PO TID PRN Diarrhea 09/13/20 08/19/25 Unknown History magnesium oxide 400 mg (241.3 mg 400 mg PO DAILY 09/13/20 09/09/25 08/05/25 History magnesium) tablet vitamin E acetate 134 mg (200 400 unit PO DAILY@0700 09/13/20 08/19/25 08/05/25 History unit) capsule cholecalciferol (vitamin D3) 25 25 mcg PO DAILY 05/28/25 09/09/25 08/05/25 History mcg (1,000 unit) capsule (Vitamin D3) mycophenolate sodium 180 mg 180 mg PO QID 05/28/25 09/09/25 08/05/25 History tablet,delayed release vitamins with calcium 27 tab PO DAILY 05/28/25 08/19/25 08/05/25 History no.72-iron 27 mg-folic acid 1 mg tablet ( Vitamins Plus Low Iron) tacrolimus 0.5 mg capsule, See Rx Instructions .Route .COMPLEX 05/28/25 09/09/25 08/05/25 History immediate-release clonidine HCl 0.1 mg tablet 0.1 mg PO TID #90 tabs 06/02/25 09/09/25 08/05/25 Rx docusate sodium 100 mg capsule 100 mg PO BID #60 caps 06/02/25 08/19/25 08/04/25 Rx prednisone 5 mg tablet 5 mg PO DAILY #30 tabs 06/02/25 09/09/25 08/05/25 Rx bumetanide 0.5 mg tablet See Rx Instructions .Route .COMPLEX 07/09/25 09/09/25 08/04/25 History carvedilol 25 mg tablet 25 mg PO DAILY 07/09/25 09/09/25 08/05/25 History fluticasone propionate 50 1 spray intranasal BID 07/09/25 09/09/25 08/05/25 History mcg/actuation nasal spray,suspension erythromycin 5 mg/gram (0.5 %) eye 1 applic eye-right QID #1 g 07/15/25 08/19/25 08/05/25 Rx ointment (3.5 gram tube) hydrocodone 5 mg-acetaminophen 325 1 tab PO Q6H PRN pain (scale score 07/15/25 08/19/25 Unknown Rx mg tablet 7-10) #14 tabs amlodipine 5 mg tablet 10 mg (2 x 5 mg) PO DAILY #30 tabs 08/08/25 09/09/25 Unknown Rx dental adhesive [Fixodent] 1 applic dental PRN #1 tube 08/08/25 09/09/25 Unknown Rx hydralazine 100 mg tablet 100 mg PO TID #90 tabs 08/08/25 09/09/25 08/05/25 Rx losartan 50 mg tablet 50 mg PO BID #60 tabs 08/08/25 09/09/25 Unknown Rx left velcro wrist brace #1 ea 08/19/25 08/19/25 Unknown Rx Allergies Allergy/AdvReac Type Severity Reaction Status Date / Time cranberry Allergy Severe ALGY-Swell Verified 09/09/25 15:20 Lip/Tongue/Throat codeine Allergy ADR-Halluci Verified 09/09/25 15:20 nating nifedipine Allergy ALGY-Swell Verified 09/09/25 15:20 Lip/Tongue/Throat povidone-iodine (From Allergy ADR-Itching Verified 09/09/25 15:20 Betadine) simvastatin Allergy Unknown Verified 09/09/25 15:20 trazodone Allergy ADR-Vomitin Verified 09/09/25 15:20 g PFSH Acute PFSH: Medical History Immunosuppressed status Moderate aortic valve stenosis Hepatitis C Post hysterectomy menopause Surgical History History of simultaneous kidney and pancreas transplant Transplant Arteriovenous fistula removed Renal transplant recipient Social History Smoking and tobacco/nicotine status: former use of tobacco/nicotine Alcohol intake: never Substance/Drug Use: never Additional social history: She wants full code is discussed with Tushar Ren MD on 08/05/2025. 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 Accelerated hypertension: Efforts to control her BP have been met with challenges. She has not responded well to escalating doses of nitroglycerin. Her PM doses of antihypertenives by mouth have been provided without improvement. Her listed allergy to Cardene precludes its use. IV pushes of hydralazine and labetalol have also not given desired result. Will start labetalol infusion tonight. Resume her usual home meds. She reports her previously prescribed oral clonidine was discontinued so the dialysis nurses can have solange break. She is now on a clonidine patch 2. 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
--- NOTE | 2025-09-09 22:10 | PC.NURSE ---
PT WAS THROWING UP UPON BEDSIDE REPORT. HOSPITALIST NOTIFIED. HOSPITALIST VERBAL ORDER TO D/C PO MEDS AND CONTINUE TO TITRATE NITRO DRIP. PT BED LINENS AND GOWN CHANGED. EVS CLEANED FLOOR.
--- NOTE | 2025-09-09 23:08 | PC.NURSE ---
THIS RN HAD VERBAL ORDER FROM HOSPITALIST TO GIVE PT WATER AND SEE IF SHE IS ABLE TO HANDLE FLUIDS. PT GIVEN A CUP OF WATER.
[2025-09-10] VITALS (194 sets, daily range): BP systolic 139–225; BP diastolic 71–126; PULSE 0–94; RESP 0–38; TEMP 36.6–36.8; O2SAT 85–99
[2025-09-10] MEDS: heparin 5,000 unit/mL INJ 1 mL 5000 UNIT SUBCUT ×4 (00:13→21:25)
[2025-09-10] MEDS: labetalol 5 mg/mL SDV 20mL 20 MG IVP (02:38)
[2025-09-10] MEDS: nicardipine 20 MG/200 ML PREMIX 25 MG IV (04:13)
[2025-09-10] MEDS: ondansetron 2 mg/ML SDV 2 mL 4 MG IVP ×2 (05:32→21:25)
[2025-09-10 07:13] LABS: Hematocrit 26.7 % (36-47); Hemoglobin 8.60 g/dL (11.27-16.99); Mean Corpuscular HGB Conc 32.2 g/dL (30-55); Mean Corpuscular Hemoglobin 32.6 pg (27-33); Mean Corpuscular Volume 101.1 fl (85-98); Nucleated Red Blood Cells % 0 %; Platelet Count 240 10^3/cmm (157-399); Red Blood Count 2.64 10^6/uL (3.85-5.65); White Blood Count 8.61 10^3/uL (3.29-11.43)
[2025-09-10 07:28] LABS: Blood Urea Nitrogen 30 mg/dL (8-23); Calcium 9.4 mg/dL (8.5-10.5); Carbon Dioxide 30 mmol/L (22-29); Chloride 96 mmol/L (98-107); Glucose 125 mg/dL (65-115); Osmolality Calculated 292 mOsm/kg (285-295); Sodium 137 mmol/L (136-145)
[2025-09-10 07:30] LABS: Anion Gap 16.2 (5-19); Potassium 5.2 mmol/L (3.5-5.1)
[2025-09-10] MEDS: heparin, porcine 1,000 unit/mL INJ 10 mL 10000 UNIT INTRACATH (11:56)
[2025-09-10] MEDS: heparin, porcine 1,000 unit/mL INJ 10 mL 1000 UNIT IV (11:56)
--- NOTE | 2025-09-10 13:48 | P.PN_ITS ---
Vitals/I&O/Wt Last Vital Signs Temp 98.2 F 09/10/25 12:13 Pulse 78 09/10/25 12:13 Resp 15 09/10/25 12:13 BP 183/90 09/10/25 12:13 Pulse Ox 97 09/10/25 12:05 O2 Del Method Room Air 09/10/25 01:02 O2 Flow Rate 2 09/09/25 19:40 09/09/25 09/10/25 09/10/25 22:59 06:59 14:59 Intake Total 17.825 / 17.825 301.258 / 319.083 214 / 214 Output Total 0 / 0 Balance 17.825 / 17.825 301.258 / 319.083 214 / 214 Weight last 48 hrs Weight 47.174 kg Weight 47.174 kg Weight 49.101 kg Physical Exam 2 Narrative: awake , alert , no distress on 2L c PEERLA S1S2 RRR Lungs clear Grade abd soft non tender ext no edema skin no rash Data 09/10/25 06:31 09/10/25 06:31 A&P Assessment and plan 1. History of simultaneous kidney and pancreas transplant: 2. End stage renal disease on dialysis: 3. 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 Accelerated hypertension Resume home medications and currently on Cardene drip. Blood pressure still remains uncontrolled. Nephrology consulted. Also plan to do dialysis today since patient's schedule is Monday. She could dialyze on Monday and states that she did not miss her doses. Also states that she has been taking her medications regularly - Continue hydralazine 100 mg p.o. 3 times daily, losartan 100 p.o. twice daily Cardene drip Coreg 25 p.o. daily - Add clonidine p.o. 3 times daily 2. End stage renal disease on dialysis: Nephrology consulted History of renal transplant on tacrolimus mycophenolate and prednisone. Continue. Will defer to nephrology to check tacrolimus level DVT prophylaxis, heparin subcu Full code PDMP PDMP Reviewed: Not Reviewed Attestations 2 Medical Necessity Statement*: Uncontrolled blood pressure. Also needs dialysis. Coding Level of Care Code Acute Code for [facility] Fwd Diagnoses History of simultaneous kidney and pancreas transplant Z94.0; Z94.83 End stage renal disease on dialysis N18.6; Z99.2 Accelerated hypertension I10
--- NOTE | 2025-09-10 14:58 | PM.CONSULT ---
Providers/Reason For Consult Consulting Physician/Specialty*: komman[facility]/Nephrology Reason for Consult*: ESRD Attending Physician: Christina Amaya MD Primary Care Provider: Ale Olivier MD History of Present Illness History of Present Illness Yu Nunez is a 65 year old female ankush Nunez is a 65 year old female Patient is a 65-year-old female with end-stage renal disease on dialysis with history of prior pancreatic and kidney transplant 23 years ago with a failed renal transplant, has been on dialysis. She is currently admitted due to elevated blood pressures. Review of Systems Narrative: negative Medications/Allergies Home Medications ?Medication ?Instructions ?Recorded ?Confirmed ?Last Taken ?Type ascorbic acid (vitamin C) 500 mg 500 mg PO BID@0700,1730 09/13/20 09/10/25 09/09/25 History tablet (Vitamin C) aspirin 81 mg chewable tablet 81 mg PO DAILY@2100 09/13/20 09/10/25 09/08/25 History loperamide 2 mg capsule 2 mg PO TID PRN Diarrhea 09/13/20 09/10/25 Unknown History magnesium oxide 400 mg (241.3 mg 400 mg PO DAILY 09/13/20 09/10/25 09/09/25 History magnesium) tablet vitamin E acetate 134 mg (200 400 unit PO DAILY@0700 09/13/20 09/10/25 09/09/25 History unit) capsule cholecalciferol (vitamin D3) 25 25 mcg PO DAILY 05/28/25 09/10/25 09/09/25 History mcg (1,000 unit) capsule (Vitamin D3) mycophenolate sodium 180 mg 180 mg PO QID 05/28/25 09/10/25 09/09/25 History tablet,delayed release vitamins with calcium 27 tab PO DAILY 05/28/25 09/10/25 09/09/25 History no.72-iron 27 mg-folic acid 1 mg tablet ( Vitamins Plus Low Iron) tacrolimus 0.5 mg capsule, See Rx Instructions .Route .COMPLEX 05/28/25 09/10/25 09/09/25 History immediate-release docusate sodium 100 mg capsule 100 mg PO BID #60 caps 06/02/25 09/10/25 09/09/25 Rx prednisone 5 mg tablet 5 mg PO DAILY #30 tabs 06/02/25 09/10/2525 Rx bumetanide 0.5 mg tablet See Rx Instructions .Route .COMPLEX 07/09/25 09/10/25 08/04/25 History carvedilol 25 mg tablet 25 mg PO DAILY 07/09/25 09/10/25 09/09/25 History fluticasone propionate 50 1 spray intranasal BID 07/09/25 09/10/25 09/09/25 History mcg/actuation nasal spray,suspension erythromycin 5 mg/gram (0.5 %) eye 1 applic eye-right QID #1 g 07/15/25 09/10/25 09/09/25 Rx ointment (3.5 gram tube) hydrocodone 5 mg-acetaminophen 325 1 tab PO Q6H PRN pain (scale score 07/15/25 09/10/25 Unknown Rx mg tablet 7-10) #14 tabs amlodipine 5 mg tablet 10 mg (2 x 5 mg) PO DAILY #30 tabs 08/08/25 09/10/25 09/09/25 Rx dental adhesive [Fixodent] 1 applic dental PRN #1 tube 08/08/25 09/10/25 Unknown Rx losartan 50 mg tablet 50 mg PO BID #60 tabs 08/08/25 09/10/25 09/09/25 Rx left velcro wrist brace #1 ea 08/19/25 09/10/25 Unknown Rx enoxaparin 30 mg/0.3 mL 30 mg SUBCUT DAILY 09/10/25 09/10/25 09/09/25 History subcutaneous syringe hydralazine 50 mg tablet 50 mg PO TID 09/10/25 09/10/25 09/09/25 History Allergies Allergy/AdvReac Type Severity Reaction Status Date / Time cranberry Allergy Severe ALGY-Swell Verified 09/09/25 15:20 Lip/Tongue/Throat codeine Allergy ADR-Halluci Verified 09/09/25 15:20 nating nifedipine Allergy ALGY-Swell Verified 09/09/25 15:20 Lip/Tongue/Throat povidone-iodine (From Allergy ADR-Itching Verified 09/09/25 15:20 Betadine) simvastatin Allergy Unknown Verified 09/09/25 15:20 trazodone Allergy ADR-Vomitin Verified 09/09/25 15:20 g Current Medications Generic Name Dose Route Start Last Admin Trade Name Freq PRN Reason Stop Dose Admin Carvedilol 25 mg 09/10/25 05:00 09/10/25 05:33 Carvedilol 25 Mg Tablet PO 25 mg DAILY RENETTA Administration Docusate Sodium 100 mg 09/10/25 05:00 09/10/25 05:33 Docusate Sodium 100 Mg Capsule PO 100 mg BID RENETTA Administration Heparin Sodium (Porcine) 5,000 unit 09/09/25 21:56 09/10/25 13:29 Heparin 5,000 Unit/Ml Inj 1 Ml SUBCUT 5,000 unit Q8H RENETTA Administration Hydralazine HCl 100 mg 09/10/25 05:00 09/10/25 13:29 Hydralazine 50 Mg Tablet PO 100 mg TID RENETTA Administration Nicardipine/Sodium Chloride 20 mg in 200 mls @ 0 mls/hr 09/10/25 04:15 09/10/25 11:00 Cardene IV 0 mg/hr .Q0M RENETTA 0 mls/hr Protocol Titration Per Protocol Losartan Potassium 50 mg 09/10/25 05:00 09/10/25 05:33 Losartan 50 Mg Tablet PO 50 mg BID RENETTA Administration Magnesium Oxide 400 mg 09/10/25 05:00 09/10/25 05:33 Magnesium Oxide 400 Mg Tablet PO 400 mg DAILY RENETTA Administration Ondansetron HCl 4 mg 09/09/25 21:56 09/10/25 05:32 Ondansetron 2 Mg/Ml Sdv 2 Ml IVP 4 mg Q8H PRN Administration vomiting, or N/V if npo Prednisone 5 mg 09/10/25 05:00 09/10/25 05:33 Prednisone 5 Mg Tablet PO 5 mg DAILY RENETTA Administration PFSH Acute PFSH: Medical History Immunosuppressed status Moderate aortic valve stenosis Hepatitis C Post hysterectomy menopause Surgical History History of simultaneous kidney and pancreas transplant Transplant Arteriovenous fistula removed Renal transplant recipient Social History Smoking and tobacco/nicotine status: former use of tobacco/nicotine Alcohol intake: never Substance/Drug Use: never Additional social history: She wants full code is discussed with Tushar Ren MD on 08/05/2025. 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 Current occupational status: disabled Vitals/I&O/Wt Last Vital Signs Temp 98.2 F 09/10/25 12:13 Pulse 81 09/10/25 14:40 Resp 20 H 09/10/25 14:40 BP 178/96 09/10/25 14:40 Pulse Ox 98 09/10/25 14:40 O2 Del Method Room Air 09/10/25 01:02 O2 Flow Rate 2 09/09/25 19:40 09/09/25 09/10/25 09/10/25 22:59 06:59 14:59 Intake Total 17.825 / 17.825 301.258 / 319.083 214 / 214 Output Total 0 / 0 Balance 17.825 / 17.825 301.258 / 319.083 214 / 214 Weight last 48 hrs Weight 47.174 kg Weight 47.174 kg Weight 49.101 kg Physical Exam Const: OTHER: awake , alert peerla nO jvd S1S2 RRR lungs clear keyon Abd soft ,non tender No edema Data 09/10/25 06:31 09/10/25 06:31 A&P Assessment and plan 1. End stage renal disease on dialysis: Plan: 1. End-stage renal disease: On MWF schedule, HD today 2. elevated BP , resumed Home medications, uf WITH hd 3. Anemia: Hemoglobin at goal, monitor 4. History of pancreatic and renal transplant - with failed renal transplant and dialysis dependent. 5. Anemia , will order CHRISTEL Patient evaluated using audiovisual cart. Time spent 40 minutes. PDMP PDMP Reviewed: Not Reviewed Coding Level of Care Code Acute Code for [facility] Fwd Diagnoses End stage renal disease on dialysis N18.6; Z99.2
--- NOTE | 2025-09-10 20:19 | PC.NURSE ---
At approximately 2014 this nurse entered patients room with charge nurse Yuli Moe RN and patients tunneled dialysis catheter appeared backed out, stitches were not in tact to the skin and below the dressing site. No blood is noted at the site, patient has no c/o pain or discomfort at the site. Applied foam tape over site to secure. notified of situation. This nurse described placement and application of foam tape to site. Provider asked if site was bleeding. I responded there was no blood. He said to wait til morning and let general surgery assess.
[2025-09-11] VITALS (88 sets, daily range): BP systolic 132–214; BP diastolic 65–101; PULSE 55–82; RESP 12–38; TEMP 36.6–37.2; O2SAT 91–100; BMI 18.5
--- NOTE | 2025-09-11 00:25 | PC.NURSE ---
Cardene drip paused after administration of patients PO blood pressure medications adminstered and blood pressure was within parameters to pause drip. BP currently 152/72
[2025-09-11 01:33] LABS: Hepatitis B Surface Antigen Non-Reactive (Nonreactive)
[2025-09-11] MEDS: ondansetron 2 mg/ML SDV 2 mL 4 MG IVP (05:20)
[2025-09-11] MEDS: heparin 5,000 unit/mL INJ 1 mL 5000 UNIT SUBCUT ×3 (05:22→21:31)
[2025-09-11 08:02] LABS: Hematocrit 23.5 % (36-47); Hemoglobin 7.40 g/dL (11.27-16.99); Mean Corpuscular HGB Conc 31.5 g/dL (30-55); Mean Corpuscular Hemoglobin 32.3 pg (27-33); Mean Corpuscular Volume 102.6 fl (85-98); Nucleated Red Blood Cells % 0 %; Platelet Count 207 10^3/cmm (157-399); Red Blood Count 2.29 10^6/uL (3.85-5.65); White Blood Count 7.21 10^3/uL (3.29-11.43)
[2025-09-11 08:35] LABS: Anion Gap 11.1 (5-19); Blood Urea Nitrogen 14 mg/dL (8-23); Calcium 8.2 mg/dL (8.5-10.5); Carbon Dioxide 30 mmol/L (22-29); Chloride 98 mmol/L (98-107); Glucose 118 mg/dL (65-115); Osmolality Calculated 282 mOsm/kg (285-295); Potassium 4.1 mmol/L (3.5-5.1); Sodium 135 mmol/L (136-145)
--- NOTE | 2025-09-11 13:04 | XR_ITS ---
WS: [id number] Exam: XR chest 1V portable [id number] Date/Time of Exam: 09/11/2025 1:07 PM Reason For Exam: dialysis line position Comparison 08/07/2025. A right-sided double-lumen dialysis catheter appears to terminate in the lower one third of the SVC. The heart is enlarged and there is pulmonary vascular congestion suggesting CHF. Moderate size left-sided pleural effusion noted. Probable small RIGHT basal pleural effusion. No pneumothorax. The mediastinum is normal in contour. Bony structures are intact. XR/XR chest 1V portable [id number] IMPRESSION: 1. Right-sided double-lumen dialysis catheter terminating in the lower one thir d of the SVC. 2. Cardiac enlargement with findings of acute congestive heart failure and prom inent left-sided pleural effusion.
--- NOTE | 2025-09-11 13:33 | P.PN_ITS ---
Subjective 2 Subjective: Patient more awake and alert, had come off Cardene drip however now back on Cardene drip this morning for uncontrolled blood pressure. Nephrology following dialysis Vitals/I&O/Wt Last Vital Signs Temp 99.0 F 09/11/25 09:00 Pulse 61 09/11/25 12:45 Resp 15 09/11/25 12:45 BP 190/89 09/11/25 13:05 Pulse Ox 98 09/11/25 12:45 O2 Del Method Nasal Cannula 09/11/25 12:45 O2 Flow Rate 2 09/11/25 10:15 09/10/25 09/11/25 09/11/25 22:59 06:59 14:59 Intake Total 773.333 / 987.333 320.000 / 1307.333 278 / 278 Output Total 3000 / 3000 Balance -2226.667 / -2011.667 320.000 / -1692.667 278 / 278 Weight last 48 hrs Weight 45.9 kg Weight 101.8 kg Weight 47.174 kg Weight 47.174 kg Weight 49.101 kg Physical Exam 2 Narrative: awake , alert , no distress on 2L c PEERLA S1S2 RRR Lungs clear Grade abd soft non tender ext no edema skin no rash Data 09/11/25 07:01 09/11/25 07:01 A&P Assessment and plan 1. History of simultaneous kidney and pancreas transplant: 2. End stage renal disease on dialysis: 3. 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 Accelerated hypertension Resume home medications and now back on Cardene drip. Blood pressure still remains uncontrolled. Nephrology following for dialysis Change dose of clonidine to 0.3 p.o. 3 times daily. Continue other medication including hydralazine 100 p.o. 3 times daily, losartan 100 p.o. twice daily. Coreg 25 p.o. daily. Monitor blood pressure and attempt to discontinue Cardene drip 2. End stage renal disease on dialysis: Nephrology following and dialysis per nephrology-Monday schedule History of renal transplant on tacrolimus mycophenolate and prednisone. Continue. Will defer to nephrology to check tacrolimus level Anemia of chronic disease, CHRISTEL ordered by nephrology. DVT prophylaxis, heparin subcu Full code PDMP PDMP Reviewed: Not Reviewed Attestations 2 Medical Necessity Statement*: Needs to stay in the hospital for control of blood pressure Coding Level of Care Code Acute Code for [facility] Fwd Diagnoses History of simultaneous kidney and pancreas transplant Z94.0; Z94.83 End stage renal disease on dialysis N18.6; Z99.2 Accelerated hypertension I10
--- NOTE | 2025-09-11 13:41 | PM.ACPR ---
Procedure/Consent Time out: Time Out Performed: Yes Consent: Consent for Procedure: Consent obtained from patient, Risks & Benefits reviewed and Agrees to proceed with procedure Procedure Narrative: With the patient in a supine position and after timeout was conducted local anesthesia was infiltrated from the area of the insertion site of the catheter into the right chest area. With the help of a 3-0 nylon-placed 2 sutures to hold the catheter in place against the chest wall using the tacks at the end of the catheter. I then used another 3-0 nylon suture to put a U-stitch around the catheter insertion site in the chest to prevent further displacement. Patient tolerated well the procedure and remained in the ICU in stable condition Acute Procedures Epistaxis Control: Time out performed: Yes
--- NOTE | 2025-09-11 13:43 | PM.CONSULT ---
Providers/Reason For Consult Consulting Physician/Specialty*: General Surgery Reason for Consult*: Dislodged dialysis catheter Attending Physician: Christina Amaya MD Primary Care Provider: Ale Olivier MD History of Present Illness History of Present Illness Yu Nunez is a 65 year old female in chronic hemodialysis due to end-stage renal disease. Was noted to have her dialysis catheter loose from the skin overnight. Dialysis catheter was placed by my colleague Dr. Gore in June 2025. Has been working well receive dialysis through the catheter yesterday Review of Systems General: Reports: 10 or more systems reviewed and unremarkable except in HPI and below Medications/Allergies Home Medications ?Medication ?Instructions ?Recorded ?Confirmed ?Last Taken ?Type ascorbic acid (vitamin C) 500 mg 500 mg PO BID@0700,1730 09/13/20 09/10/25 09/09/25 History tablet (Vitamin C) aspirin 81 mg chewable tablet 81 mg PO DAILY@2100 09/13/20 09/10/25 09/08/25 History loperamide 2 mg capsule 2 mg PO TID PRN Diarrhea 09/13/20 09/10/25 Unknown History magnesium oxide 400 mg (241.3 mg 400 mg PO DAILY 09/13/20 09/10/25 09/09/25 History magnesium) tablet vitamin E acetate 134 mg (200 400 unit PO DAILY@0700 09/13/20 09/10/25 09/09/25 History unit) capsule cholecalciferol (vitamin D3) 25 25 mcg PO DAILY 05/28/25 09/10/25 09/09/25 History mcg (1,000 unit) capsule (Vitamin D3) mycophenolate sodium 180 mg 180 mg PO QID 05/28/25 09/10/25 09/09/25 History tablet,delayed release vitamins with calcium 27 tab PO DAILY 05/28/25 09/10/25 09/09/25 History no.72-iron 27 mg-folic acid 1 mg tablet ( Vitamins Plus Low Iron) tacrolimus 0.5 mg capsule, See Rx Instructions .Route .COMPLEX 05/28/25 09/10/25 09/09/25 History immediate-release docusate sodium 100 mg capsule 100 mg PO BID #60 caps 06/02/25 09/10/25 09/09/25 Rx prednisone 5 mg tablet 5 mg PO DAILY #30 tabs 06/02/25 09/10/25 09/09/25 Rx bumetanide 0.5 mg tablet See Rx Instructions .Route .COMPLEX 07/09/25 09/10/25 08/04/25 History carvedilol 25 mg tablet 25 mg PO DAILY 07/09/25 09/10/25 09/09/25 History fluticasone propionate 50 1 spray intranasal BID 07/09/25 09/10/25 09/09/25 History mcg/actuation nasal spray,suspension erythromycin 5 mg/gram (0.5 %) eye 1 applic eye-right QID #1 g 07/15/25 09/10/25 09/09/25 Rx ointment (3.5 gram tube) hydrocodone 5 mg-acetaminophen 325 1 tab PO Q6H PRN pain (scale score 07/15/25 09/10/25 Unknown Rx mg tablet 7-10) #14 tabs amlodipine 5 mg tablet 10 mg (2 x 5 mg) PO DAILY #30 tabs 08/08/25 09/10/25 09/09/25 Rx dental adhesive [Fixodent] 1 applic dental PRN #1 tube 08/08/25 09/10/25 Unknown Rx losartan 50 mg tablet 50 mg PO BID #60 tabs 08/08/25 09/10/25 09/09/25 Rx left velcro wrist brace #1 ea 08/19/25 09/10/25 Unknown Rx enoxaparin 30 mg/0.3 mL 30 mg SUBCUT DAILY 09/10/25 09/10/25 09/09/25 History subcutaneous syringe hydralazine 50 mg tablet 50 mg PO TID 09/10/25 09/10/25 09/09/25 History Allergies Allergy/AdvReac Type Severity Reaction Status Date / Time cranberry Allergy Severe ALGY-Swell Verified 09/09/25 15:20 Lip/Tongue/Throat codeine Allergy ADR-Halluci Verified 09/09/25 15:20 nating nifedipine Allergy ALGY-Swell Verified 09/09/25 15:20 Lip/Tongue/Throat povidone-iodine (From Allergy ADR-Itching Verified 09/09/25 15:20 Betadine) simvastatin Allergy Unknown Verified 09/09/25 15:20 trazodone Allergy ADR-Vomitin Verified 09/09/25 15:20 g Current Medications Generic Name Dose Route Start Last Admin Trade Name Joshq PRN Reason Stop Dose Admin Aspirin 81 mg 09/10/25 21:00 09/10/25 21:24 Aspirin 81 Mg Chew Tablet PO 81 mg DAILY@2100 RENETTA Administration Carvedilol 25 mg 09/10/25 05:00 09/11/25 05:22 Carvedilol 25 Mg Tablet PO 25 mg DAILY RENETTA Administration Clonidine HCl 0.3 mg 09/11/25 13:00 09/11/25 13:05 Clonidine 0.1 Mg Tablet PO 0.3 mg TID RENETTA Administration Docusate Sodium 100 mg 09/10/25 05:00 09/11/25 05:21 Docusate Sodium 100 Mg Capsule PO 100 mg BID RENETTA Administration Heparin Sodium (Porcine) 5,000 unit 09/09/25 21:56 09/11/25 13:05 Heparin 5,000 Unit/Ml Inj 1 Ml SUBCUT 5,000 unit Q8H RENETTA Administration Hydralazine HCl 100 mg 09/10/25 05:00 09/11/25 13:05 Hydralazine 50 Mg Tablet PO 100 mg TID RENETTA Administration Nicardipine/Sodium Chloride 20 mg in 200 mls @ 0 mls/hr 09/10/25 04:15 09/11/25 10:24 Cardene IV 0 mg/hr .Q0M RENETTA 0 mls/hr Protocol Titration Per Protocol Losartan Potassium 50 mg 09/10/25 05:00 09/11/25 05:21 Losartan 50 Mg Tablet PO 50 mg BID RENETTA Administration Magnesium Oxide 400 mg 09/10/25 05:00 09/11/25 05:21 Magnesium Oxide 400 Mg Tablet PO 400 mg DAILY RENETTA Administration Ondansetron HCl 4 mg 09/09/25 21:56 09/11/25 05:20 Ondansetron 2 Mg/Ml Sdv 2 Ml IVP 4 mg Q8H PRN Administration vomiting, or N/V if npo Prednisone 5 mg 09/10/25 05:00 09/11/25 05:21 Prednisone 5 Mg Tablet PO 5 mg DAILY RENETTA Administration PFSH Acute PFSH: Medical History Immunosuppressed status Moderate aortic valve stenosis Hepatitis C Post hysterectomy menopause Surgical History History of simultaneous kidney and pancreas transplant Transplant Arteriovenous fistula removed Renal transplant recipient Social History Smoking and tobacco/nicotine status: former use of tobacco/nicotine Alcohol intake: never Substance/Drug Use: never Additional social history: She wants full code is discussed with Tushar Ren MD on 08/05/2025. 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 Current occupational status: disabled Vitals/I&O/Wt Last Vital Signs Temp 99.0 F 09/11/25 09:00 Pulse 61 09/11/25 12:45 Resp 15 09/11/25 12:45 BP 190/89 09/11/25 13:05 Pulse Ox 98 09/11/25 12:45 O2 Del Method Nasal Cannula 09/11/25 12:45 O2 Flow Rate 2 09/11/25 10:15 09/10/25 09/11/25 09/11/25 22:59 06:59 14:59 Intake Total 773.333 / 987.333 320.000 / 1307.333 278 / 278 Output Total 3000 / 3000 Balance -2226.667 / -2012.667 320.000 / -1692.667 278 / 278 Weight last 48 hrs Weight 101 lb 3.075 oz Weight 224 lb 6.889 oz Weight 104 lb Weight 104 lb Weight 108 lb 4 oz Physical Exam Narrative: In the right upper chest catheter is in place, he is loose from the skin but there appears to be in adequate position Data 09/11/25 07:01 09/11/25 07:01 A&P Assessment and plan 1. Acute kidney injury superimposed on CKD: 2. ESRD (end stage renal disease): Plan: An x-ray was obtained showing catheter in good position, I fix the catheter to the skin with #3-0 nylon I also put a U sticks around the catheter insertion site in the chest to prevent further displacement. Patient can continue to receive dialysis through the catheter. She can follow-up with my colleague Dr. Gore as outpatient once discharged to discuss the need for possible catheter replacement, although ideally patient should see the vascular surgeon to get a fistula. PDMP PDMP Reviewed: Not Reviewed Coding Level of Care Code Acute Code for Chg Fwd Diagnoses Acute kidney injury superimposed on CKD N17.9; N18.9 ESRD (end stage renal disease) N18.6
--- NOTE | 2025-09-11 17:37 | P.PN_ITS ---
Subjective 2 Subjective: events noted Medications: Reviewed: Yes Vitals/I&O/Wt Last Vital Signs Temp 98.7 F 09/11/25 14:15 Pulse 55 L 09/11/25 17:15 Resp 27 H 09/11/25 17:15 BP 163/87 09/11/25 17:26 Pulse Ox 94 09/11/25 17:15 O2 Del Method Nasal Cannula 09/11/25 17:15 O2 Flow Rate 2 09/11/25 10:15 09/11/25 09/11/25 09/11/25 06:59 14:59 22:59 Intake Total 320.000 / 1307.333 278 / 278 Balance 320.000 / -1692.667 278 / 278 Weight last 48 hrs Weight 45.9 kg Weight 101.8 kg Weight 47.174 kg Weight 47.174 kg Physical Exam 2 Const: OTHER: awake , alert peerla nO jvd S1S2 RRR lungs clear keyon Abd soft ,non tender No edema Data 09/11/25 07:01 09/11/25 07:01 A&P Assessment and plan 1. End stage renal disease on dialysis: Plan: 1. End-stage renal disease: On MWF schedule, 2. elevated BP , resumed Home medications, uf WITH hd , dc cardene gtt 3. History of pancreatic and renal transplant - with failed renal transplant and dialysis dependent. 4. Anemia , will order CHRISTEL Patient evaluated using audiovisual cart. Time spent 40 minutes. PDMP PDMP Reviewed: Not Reviewed Attestations 2 Medical Necessity Statement*: PER JADE Coding Level of Care Code Acute Code for Chg Fwd Diagnoses End stage renal disease on dialysis N18.6; Z99.2
[2025-09-12] VITALS (54 sets, daily range): BP systolic 82–227; BP diastolic 47–113; PULSE 56–72; RESP 13–35; TEMP 36.2–37.2; O2SAT 91–99
[2025-09-12] MEDS: labetalol 5 mg/mL SDV 20mL 20 MG IVP (00:25)
[2025-09-12] MEDS: heparin 5,000 unit/mL INJ 1 mL 5000 UNIT SUBCUT ×3 (05:33→21:34)
[2025-09-12] MEDS: nicardipine 20 MG/200 ML PREMIX 25 MG IV (07:46)
--- NOTE | 2025-09-12 08:43 | P.PN_ITS ---
Subjective 2 Subjective: Patient seen and examined, awake and alert, still requiring Cardene drip. Medications: Reviewed: Yes Vitals/I&O/Wt Last Vital Signs Temp 98.8 F 09/12/25 06:00 Pulse 58 L 09/12/25 07:30 Resp 24 H 09/12/25 07:30 BP 205/98 09/12/25 07:30 Pulse Ox 99 09/12/25 07:30 O2 Del Method Nasal Cannula 09/12/25 07:00 O2 Flow Rate 2 09/12/25 02:30 09/11/25 09/12/25 09/12/25 22:59 06:59 14:59 Intake Total 360 / 638 120 / 758 7.084 / 7.084 Balance 360 / 638 120 / 758 7.084 / 7.084 Weight last 48 hrs Weight 46.493 kg Weight 45.9 kg Weight 101.8 kg Physical Exam 2 Narrative: awake , alert , no distress on 2L c PEERLA S1S2 RRR Lungs clear Grade abd soft non tender ext no edema skin no rash Data 09/11/25 07:01 09/11/25 07:01 A&P Assessment and plan 1. History of simultaneous kidney and pancreas transplant: 2. End stage renal disease on dialysis: 3. 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 Accelerated hypertension Resume home medications and now back on Cardene drip. Blood pressure still remains uncontrolled. Nephrology following for dialysis Changed dose of clonidine to 0.3 p.o. 3 times daily. Continue other medication including hydralazine 100 p.o. 3 times daily, losartan 100 p.o. twice daily. Coreg 25 p.o. daily. Add minoxidil today. Monitor blood pressure and attempt to discontinue Cardene drip 2. End stage renal disease on dialysis: Nephrology following and dialysis per nephrology-Monday schedule History of renal transplant on tacrolimus mycophenolate and prednisone. Continue. Will defer to nephrology to check tacrolimus level Anemia of chronic disease, CHRISTEL ordered by nephrology. DVT prophylaxis, heparin subcu Full code PDMP PDMP Reviewed: Not Reviewed Attestations 2 Medical Necessity Statement*: Blood pressure still very uncontrolled on Cardene drip. Coding Level of Care Code Acute Code for Chg Fwd Diagnoses History of simultaneous kidney and pancreas transplant Z94.0; Z94.83 End stage renal disease on dialysis N18.6; Z99.2 Accelerated hypertension I10
--- NOTE | 2025-09-12 09:30 | PC.SOCIAL ---
IMM Update pg 2 of IMM Updated and reviewed w/ patient. Copy provided and copy dated, initialed and placed in chart.
--- NOTE | 2025-09-12 12:40 | P.PN_ITS ---
Subjective 2 Subjective: Patient was seen and examined during hemodialysis. She has no new complaintson 2L o2. Medications: Reviewed: Yes Vitals/I&O/Wt Last Vital Signs Temp 98.8 F 09/12/25 06:00 Pulse 63 09/12/25 11:00 Resp 24 H 09/12/25 11:00 BP 139/65 09/12/25 11:00 Pulse Ox 95 09/12/25 09:00 O2 Del Method Nasal Cannula 09/12/25 07:00 O2 Flow Rate 2 09/12/25 02:30 09/11/25 09/12/25 09/12/25 22:59 06:59 14:59 Intake Total 360 / 638 120 / 758 37.917 / 37.917 Balance 360 / 638 120 / 758 37.917 / 37.917 Weight last 48 hrs Weight 46.493 kg Weight 45.9 kg Weight 101.8 kg Physical Exam 2 Narrative: GEN: nad, alert, conversant HEAD: normocephalic, atraumatic EYES: eomi, anicteric sclera HEENT: mmm NECK: no jvd CV: rrr LUNGS: CTAB ABD: soft, nt, nd EXT: no LE edema SKIN: no rash NEURO: grossly normal Data 09/11/25 07:01 09/11/25 07:01 A&P Assessment and plan 1. End stage renal disease on dialysis: Plan: 1. End-stage renal disease- She is on HD on a MWF schedule. She is tolerating hd today with a goal uf of 1-1.5L 2. Hypertensive urgency- improved with resuming Home medications and uf WITH hd. off cardene gtt 3. History of pancreatic and renal transplant - with failed renal transplant and dialysis dependent. 4. Anemia in ckd- cont to monitor hgb and transfuse as indicated. PDMP PDMP Reviewed: Not Reviewed Attestations 2 Medical Necessity Statement*: esrd Time Spent in Patient Care: 25 minutes Coding Level of Care Code Acute Code for Chg Fwd Diagnoses End stage renal disease on dialysis N18.6; Z99.2
[2025-09-12 14:55] LABS: HEP C RNA Viral Load Quant <1.18 NOT DETECTED Log IU/mL (NOT DETECTED); HEP C RNA Viral Load Quant <15 NOT DETECTED IU/mL (NOT DETECTED)
[2025-09-13] VITALS (23 sets, daily range): BP systolic 102–136; BP diastolic 42–60; PULSE 59–71; RESP 10–26; TEMP 36.9–38.4; O2SAT 90–97; BMI 18.5
[2025-09-13 03:49] LABS: Hematocrit 22.4 % (36-47); Hemoglobin 7.20 g/dL (11.27-16.99); Mean Corpuscular HGB Conc 32.1 g/dL (30-55); Mean Corpuscular Hemoglobin 32.0 pg (27-33); Mean Corpuscular Volume 99.6 fl (85-98); Nucleated Red Blood Cells % 0 %; Platelet Count 201 10^3/cmm (157-399); Red Blood Count 2.25 10^6/uL (3.85-5.65); White Blood Count 6.82 10^3/uL (3.29-11.43)
[2025-09-13 04:07] LABS: Anion Gap 10.1 (5-19); Blood Urea Nitrogen 13 mg/dL (8-23); Calcium 8.0 mg/dL (8.5-10.5); Carbon Dioxide 29 mmol/L (22-29); Chloride 94 mmol/L (98-107); Glucose 127 mg/dL (65-115); Osmolality Calculated 270 mOsm/kg (285-295); Potassium 4.1 mmol/L (3.5-5.1); Sodium 129 mmol/L (136-145)
[2025-09-13] MEDS: heparin 5,000 unit/mL INJ 1 mL 5000 UNIT SUBCUT ×2 (05:35→14:44)
--- NOTE | 2025-09-13 05:42 | PC.NURSE ---
This nurse contacted the hospitalist regarding patient's blood pressure and her six [address] Wilder, give all of them because she is resistant.
--- NOTE | 2025-09-13 10:54 | P.PN_ITS ---
Subjective 2 Subjective: Patient has no new complaints on 2L o2. Medications: Reviewed: Yes Vitals/I&O/Wt Last Vital Signs Temp 99.1 F 09/13/25 07:14 Pulse 63 09/13/25 07:14 Resp 16 09/13/25 07:14 BP 110/58 09/13/25 07:14 Pulse Ox 97 09/13/25 07:14 O2 Del Method Nasal Cannula 09/13/25 07:14 O2 Flow Rate 2 09/12/25 22:30 09/12/25 09/13/25 09/13/25 22:59 06:59 14:59 Intake Total 660 / 1797.917 240 / 240 Output Total 600 / 2418 Balance 660 / -20.083 -600 / -620.083 240 / 240 Weight last 48 hrs Weight 45.87 kg Weight 45.6 kg Weight 46.493 kg Physical Exam 2 Narrative: GEN: nad, alert, conversant HEAD: normocephalic, atraumatic EYES: eomi, anicteric sclera HEENT: mmm NECK: no jvd CV: rrr LUNGS: CTAB ABD: soft, nt, nd EXT: no LE edema SKIN: no rash NEURO: grossly normal Data 09/13/25 03:14 09/13/25 03:14 A&P Assessment and plan 1. ESRD (end stage renal disease): Plan: 1. End-stage renal disease- She is on HD on a MWF schedule. There is no acute indication for hd today 2. Hypertensive urgency- improved with resuming Home medications and uf with hd. 3. History of pancreatic and renal transplant - with failed renal transplant and dialysis dependent. 4. Anemia in ckd- cont to monitor hgb and transfuse as indicated. PDMP PDMP Reviewed: Not Reviewed Attestations 2 Medical Necessity Statement*: esrd Time Spent in Patient Care: 25 minutes Coding Level of Care Code Acute Code for Chg Fwd Diagnoses ESRD (end stage renal disease) N18.6
--- NOTE | 2025-09-13 12:02 | P.PN_ITS ---
Subjective 2 Subjective: Patient seen lying in bed after eating breakfast. She denies any complaints. She is asking to go home. She tells me she did not stop taking any of her blood pressure medications and related that perhaps it is because she stopped her heparin injections at her blood pressure went up. I told her that minoxidil was added yesterday and I would like to keep her overnight to monitor now that she is on all oral antihypertensives for total of 5. She reports that she has gotten dizzy before on minoxidil which confirms necessity to monitor overnight Family present: No Amb status: Up ad mikhail. Diet: Diabetic Lines/Drains: Peripheral Tele: Normal sinus rhythm Medications: Reviewed: Yes Vitals/I&O/Wt Last Vital Signs Temp 99.1 F 09/13/25 07:14 Pulse 59 L 09/13/25 11:21 Resp 14 09/13/25 11:21 BP 108/44 09/13/25 11:21 Pulse Ox 97 09/13/25 11:21 O2 Del Method Nasal Cannula 09/13/25 11:21 O2 Flow Rate 2 09/12/25 22:30 09/12/25 09/13/25 09/13/25 22:59 06:59 14:59 Intake Total 660 / 1797.917 240 / 240 Output Total 600 / 2418 Balance 660 / -20.083 -600 / -620.083 240 / 240 Weight last 48 hrs Weight 45.87 kg Weight 45.6 kg Weight 46.493 kg Physical Exam 2 Narrative: GEN: Awake and alert no acute distress CV: Regular rate and rhythm normal S1-S2 LUNGS: CTAB ABD: soft, nt, nd normal active bowel sounds EXT: no LE edema SKIN: no rash NEURO: grossly normal Data 09/13/25 03:14 09/13/25 03:14 A&P Assessment and plan 1. Accelerated hypertension: 2. History of simultaneous kidney and pancreas transplant: 3. End stage renal disease on dialysis: Plan: Yu Nunez is a 65 year old female with history significant for ESRD(on dialysis M/W/F), resistant HTN, prior pancreatic and renal transplant recipient 23 years ago, who presents with complaints of elevated blood pressure. 1. Accelerated hypertension Initially required a Cardene drip. Currently on: Norvasc 10 mg daily Hydralazine 100 mg 3 times daily (increased from home dose of 50 mg 3 times daily) Losartan 100 mg twice daily (increased from home dose of 50 mg twice daily) Coreg 25 mg daily (same as home dose) Clonidine 0.3 mg 3 times daily (added this hospitalization) Minoxidil 5 mg daily started today (added this hospitalization) Was on Bumex this is on hold. Trend blood pressure and ambulate patient to assess for side effects from newly added medications. 2. End stage renal disease on dialysis: Nephrology following and dialysis per nephrology-Monday schedule 3 history of renal transplant on tacrolimus mycophenolate and prednisone. Continue. Will defer to nephrology to check tacrolimus level 4 anemia of chronic disease, CHRISTEL ordered by nephrology. Discussed with case management today and the plan is for discharge home with home health care. DVT prophylaxis, heparin subcu Full code PDMP PDMP Reviewed: Not Reviewed Attestations 2 Medical Necessity Statement*: Patient continues to require inpatient stay for accelerated hypertension which required ICU level care for Cardene drip to lower blood pressure. Patient is on 2 new medications and 2 out of 3 of her home dose medications have been increased. Her blood pressure is finally controlled but will need to assess for side effects or adverse events. Coding Level of Care Code Acute Code for Chg Fwd Diagnoses Accelerated hypertension I10 History of simultaneous kidney and pancreas transplant Z94.0; Z94.83 End stage renal disease on dialysis N18.6; Z99.2
[2025-09-14] VITALS: BP 130/52; PULSE 66; RESP 9; TEMP 37.1; O2SAT 97
[2025-09-14 02:46] LABS: Hematocrit 21.4 % (36-47); Hemoglobin 7.00 g/dL (11.27-16.99); Mean Corpuscular HGB Conc 32.7 g/dL (30-55); Mean Corpuscular Hemoglobin 32.9 pg (27-33); Mean Corpuscular Volume 100.5 fl (85-98); Nucleated Red Blood Cells % 0 %; Platelet Count 180 10^3/cmm (157-399); Red Blood Count 2.13 10^6/uL (3.85-5.65); White Blood Count 6.84 10^3/uL (3.29-11.43)
[2025-09-14 03:09] LABS: Anion Gap 10.5 (5-19); Blood Urea Nitrogen 18 mg/dL (8-23); Calcium 8.1 mg/dL (8.5-10.5); Carbon Dioxide 29 mmol/L (22-29); Chloride 95 mmol/L (98-107); Glucose 109 mg/dL (65-115); Osmolality Calculated 272 mOsm/kg (285-295); Potassium 4.5 mmol/L (3.5-5.1); Sodium 130 mmol/L (136-145)
[2025-09-14 03:40] VITALS: BP 135/58; PULSE 68; RESP 14; O2SAT 96
[2025-09-14 05:48] VITALS: BP 142/60
[2025-09-14 07:18] VITALS: BP 132/67; PULSE 65; RESP 17; TEMP 37.4; O2SAT 96
--- NOTE | 2025-09-14 08:07 | PC.NURSE ---
2129- Patient has scheduled 5000 units heparin, hgb dropped from 9.4 on admission to 7.2. Plts are 201. Clarified with MD if he wanted heparin given. Per Dr. Ren hold heparin.
[2025-09-14 11:39] VITALS: BP 111/52; PULSE 65; RESP 17; O2SAT 91
--- NOTE | 2025-09-14 13:07 | PM.DCS ---
Discharge Providers Date of Admission: 09/09/25 18:54 Date of Discharge: September 14, 2025 Attending Provider at Admission: Wolf Wilder MD Attending Provider at Discharge: Fabian Villalobos DO Consults: Nephrology Primary Care Provider: Ale Olivier MD Diagnoses at Discharge Discharge Diagnosis 1. Accelerated hypertension: 2. History of simultaneous kidney and pancreas transplant: 3. End stage renal disease on dialysis: Reason for Visit Reason for Visit: high bp Brief History: Yu Nunez is a 65 year old female with history significant for ESRD(on dialysis M/W/F), resistant HTN, prior pancreatic and renal transplant recipient 23 years ago (with failed renal transplant and dialysis dependent) who presents with complaints of elevated blood pressure. Patient had missed her dialysis few days prior to admission and that overall she was simply feeling sick. She also complained of some nausea. Hospital Course Hospital Course Patient was admitted to the ICU and placed on a Cardene drip for accelerated hypertension. Patient's home meds were restarted the next day. As well as the addition of clonidine. Nephrology was consulted for hemodialysis. Her antirejection medications were continued for her pancreas transplant. On 09/12/2025 the Cardene drip was discontinued and she was transferred to the floor. The patient was still having some elevated blood pressures and despite numerous additions of medications and increased dosing of medications minoxidil was started. However the patient reports history of dizziness and not tolerating this medication and thus it will be discontinued on discharge. Patient received another dose of darbepoetin today prior to discharge and she will resume her anemia protocol with her dialysis unit. She is discharged in stable improved condition to home with home health care. Physical Exam Narrative: GEN: Awake and alert no acute distress, thin CV: Regular rate and rhythm normal S1-S2 LUNGS: CTAB ABD: soft, nt, nd normal active bowel sounds EXT: no LE edema SKIN: no rash NEURO: grossly normal Discharge Data Studies Completed and Pending Completed Studies During Hospitalization Category Date Time Status CXRP [XR chest 1V portable [id number]] Stat Exams 09/11/25 13:04 Completed Pending at discharge Category Date Time Status BMP [Basic Metabolic Panel] AM LABS Lab 09/15/25 04:00 Ordered CBC Auto Diff [Complete Blood Count w/Auto] AM LABS Lab 09/15/25 04:00 Ordered Drug Screen, Urine ([facility]) Routine Lab 09/11/25 15:27 Uncollected Radiology Impressions Chest X-Ray 09/11/25 13:04 IMPRESSION: 1. Right-sided double-lumen dialysis catheter terminating in the lower one third of the SVC. 2. Cardiac enlargement with findings of acute congestive heart failure and prominent left-sided pleural effusion. Laboratory Results WBC 6.84 10^3/uL (3.29-11.43) 09/14/25 02:36 RBC 2.13 10^6/uL (3.85-5.65) L 09/14/25 02:36 Hgb 7.00 g/dL (11.27-16.99) L 09/14/25 02:36 Hct 21.4 % (36-47) L 09/14/25 02:36 MCV 100.5 fl (85-98) H 09/14/25 02:36 MCH 32.9 pg (27-33) 09/14/25 02:36 MCHC 32.7 g/dL (30-55) 09/14/25 02:36 RDW 14.7 % (12.1-15.1) 09/14/25 02:36 Plt Count 180 10^3/cmm (157-399) 09/14/25 02:36 MPV 10.3 fL (7.4-10.4) 09/14/25 02:36 Neut % (Auto) 78.1 % 09/14/25 02:36 Lymph % (Auto) 11.0 % 09/14/25 02:36 [place] % (Auto) 6.9 % 09/14/25 02:36 Eos % (Auto) 2.5 % 09/14/25 02:36 Baso % (Auto) 0.3 % 09/14/25 02:36 Neut # (Auto) 5.35 10^3/uL (1.8-7.7) 09/14/25 02:36 Lymph # (Auto) 0.8 10^3/uL (0.8-4.8) 09/14/25 02:36 [place] # (Auto) 0.5 10^3/uL (0.2-0.9) 09/14/25 02:36 Eos # (Auto) 0.2 10^3/uL (0.0-0.8) 09/14/25 02:36 Baso # (Auto) 0.0 10^3/uL (0.0-0.1) 09/14/25 02:36 Nucleated RBC % (auto) 0 % 09/14/25 02:36 Nucleated RBCs # 0.0 /100WBC 09/14/25 02:36 Sodium 130 mmol/L (136-145) L 09/14/25 02:32 Potassium 4.5 mmol/L (3.5-5.1) 09/14/25 02:32 Chloride 95 mmol/L (98-107) L 09/14/25 02:32 Carbon Dioxide 29 mmol/L (22-29) 09/14/25 02:32 Anion Gap 10.5 (5-19) 09/14/25 02:32 BUN 18 mg/dL (8-23) 09/14/25 02:32 Creatinine 3.3 mg/dL (0.5-0.9) H 09/14/25 02:32 GFR Calculation 14.1 mL/min (90-130) L 09/14/25 02:32 Glucose 109 mg/dL (65-115) 09/14/25 02:32 Calculated Osmolality 272 mOsm/kg (285-295) L 09/14/25 02:32 Calcium 8.1 mg/dL (8.5-10.5) L 09/14/25 02:32 Total Bilirubin 0.4 mg/dL (0.15-1.2) 09/09/25 15:48 AST 15 U/L (0-32) 09/09/25 15:48 ALT 8 U/L (0-33) 09/09/25 15:48 Alkaline Phosphatase 82 U/L (35-105) 09/09/25 15:48 Total Protein 6.1 g/dL (6.6-8.7) L 09/09/25 15:48 Albumin 3.6 g/dL (3.5-5.2) 09/09/25 15:48 Globulin 2.5 g/dL (1.3-4.6) 09/09/25 15:48 Hep Bs Antigen Non-reactive (Nonreactive) 09/10/25 06:31 Hep Bs Antibody < 3.5 (11.5-1000) L 09/10/25 06:31 Hepatitis C Antibody Reactive (Nonreactive) H 09/10/25 06:31 HCV RNA (PCR) IUs/ml <1.18 not detected Log IU/mL (NOT DETECTED) 09/11/25 01:34 HCV RNA (PCR) IU log10 <15 not detected IU/mL (NOT DETECTED) 09/11/25 01:34 Vitals Last Vital Signs Temp 99.4 F 09/14/25 07:18 Pulse 65 09/14/25 11:39 Resp 17 09/14/25 11:39 BP 111/52 09/14/25 11:39 Pulse Ox 91 09/14/25 11:39 O2 Del Method Nasal Cannula 09/14/25 07:18 O2 Flow Rate 2 09/14/25 03:40 Discharge Plan Discharge Patient Disposition: Home Health Service Condition: Stable Prescriptions: New clonidine HCl 0.1 mg Tablet 0.3 mg PO TID Qty: 90 0RF hydralazine 100 mg tablet 100 mg PO TID Qty: 90 0RF Continued loperamide 2 mg capsule 2 mg PO TID PRN (Reason: Diarrhea) magnesium oxide 400 mg (241.3 mg magnesium) tablet 400 mg PO DAILY ascorbic acid (vitamin C) [Vitamin C] 500 mg Tablet 500 mg PO BID@0700,1730 aspirin 81 mg Tablet,Chewable 81 mg PO DAILY@2100 vitamin E acetate 200 unit Capsule 400 unit PO DAILY@0700 tacrolimus 0.5 mg capsule See Rx Instructions .ROUTE .COMPLEX Rx Instructions: TAKE 3 CAPSULES BY MOUTH EVERY MORNING AND TAKE 3 CAPSULES BY MOUTH EVERY EVENING cholecalciferol (vitamin D3) [Vitamin D3] 25 mcg (1,000 unit) Capsule 25 mcg PO DAILY mycophenolate sodium 180 mg tablet,delayed release (DR/EC) 180 mg PO QID Vitamin Plus Low Iron 27 mg iron- 1 mg tablet 27 tab PO DAILY docusate sodium 100 mg Capsule 100 mg PO BID Qty: 60 0RF prednisone 5 mg tablet 5 mg PO DAILY Qty: 30 0RF amlodipine 5 mg Tablet 10 mg PO DAILY Qty: 30 0RF Dental Adhesive [Fixodent] 1 applic dental PRN Qty: 1 0RF losartan 50 mg Tablet 50 mg PO BID Qty: 60 0RF carvedilol 25 mg tablet 25 mg PO DAILY bumetanide 0.5 mg tablet See Rx Instructions .ROUTE .COMPLEX Rx Instructions: TAKE 1 TABLET BY MOUTH DAILY ON NON-DIALYSIS DAYS fluticasone propionate 50 mcg/actuation spray,suspension 1 spray INTRANASAL BID erythromycin 5 mg/gram (0.5 %) Ointment 1 applic eye-right QID Qty: 1 0RF hydrocodone-acetaminophen 5-325 mg tablet 1 tab PO Q6H PRN (Reason: pain (scale score 7-10)) Qty: 14 0RF Discontinued hydralazine 50 mg tablet 50 mg PO TID Rx Instructions: (HOLD FOR SYSTOLIC PRESSURE GREATER THAN 135) enoxaparin 30 mg/0.3 mL syringe 30 mg SUBCUT DAILY No Action (DME) left velcro wrist brace See Rx Instructions .Route .MEDSUPPLY Qty: 1 0RF Rx Instructions: As directed Discharge Order = DC NOW: Discharge Order (Routine); Ordered 09/14/25 Ordered By: Fabian Villalobos Referrals: [facility] ([facility]) [Outside] Ale Olivier MD [Primary Care Provider, [facility]] - 1-3 days Discharge Diet: Usual diet Discharge Activity: Increase activity as tolerated Patient Instructions: Opioid Safety, Patient Portal & Darryn Instructions Activity Restrictions/Additional Instructions: Please note that your hydralazine dose has been increased from 50 to 100 mg 3 times daily. We have added clonidine 0.3 mg 3 times a day. I did decide to stop minoxidil as this may be contributing to your dizziness. Report to dialysis tomorrow. They will resume your anemia protocol. You received injection today to improve your hemoglobin. Discharge Attestations Time Spent in Discharge Care*: greater than 30 min Quality Metrics Clinical Quality Measures [ No reported AMI, CVA or VTE this stay] Coding Level of Care Code Acute Code for Chg Fwd Diagnoses Accelerated hypertension I10 History of simultaneous kidney and pancreas transplant Z94.0; Z94.83 End stage renal disease on dialysis N18.6; Z99.2
--- NOTE | 2025-09-14 13:25 | P.PN_ITS ---
Subjective 2 Subjective: Patient has no complaints on room air Medications: Reviewed: Yes Vitals/I&O/Wt Last Vital Signs Temp 99.4 F 09/14/25 07:18 Pulse 65 09/14/25 11:39 Resp 17 09/14/25 11:39 BP 111/52 09/14/25 11:39 Pulse Ox 91 09/14/25 11:39 O2 Del Method Nasal Cannula 09/14/25 07:18 O2 Flow Rate 2 09/14/25 03:40 09/13/25 09/14/25 09/14/25 22:59 06:59 14:59 Intake Total 360 / 840 240 / 1080 240 / 240 Balance 360 / 840 240 / 1080 240 / 240 Weight last 48 hrs Weight 45.87 kg Weight 45.6 kg Physical Exam 2 Narrative: GEN: nad, alert, conversant HEAD: normocephalic, atraumatic EYES: eomi, anicteric sclera HEENT: mmm NECK: no jvd CV: rrr LUNGS: CTAB ABD: soft, nt, nd EXT: no LE edema SKIN: no rash NEURO: grossly normal Data 09/14/25 02:36 09/14/25 02:32 A&P Assessment and plan 1. ESRD (end stage renal disease): Plan: 1. End-stage renal disease- She is on HD on a MWF schedule. There is no acute indication for hd today 2. Hypertensive urgency- improved with resuming home medications and uf with hd. 3. History of pancreatic and renal transplant - with failed renal transplant and dialysis dependent. 4. Anemia in ckd- she is s/p natasha. cont to monitor hgb and transfuse as indicated. PDMP PDMP Reviewed: Not Reviewed Attestations 2 Medical Necessity Statement*: esrd Time Spent in Patient Care: 25 minutes Coding Level of Care Code Acute Code for Chg Fwd Diagnoses ESRD (end stage renal disease) N18.6
[2025-09-14] MEDS: darbepoetin 40 mcg/mL INJ SUBCUT (13:40)
== END 2025-09-14 15:09 | disposition home health service (06) | DRG 682 ==
LOC: ER 23:12 → ICU 09-10 00:24 → CSU 09-13 04:24
PROVIDERS: Hospitalist; Internal Medicine; Admitting Provider Family Medicine; Emergency Provider Family Medicine; PCP Family Medicine; Visit Provider Internal Medicine
DX: I12.0 Hypertensive chronic kidney disease with stage 5 chronic kidney disease or end stage renal disease (principal); N18.6 End stage renal disease; T82.42XA Displacement of vascular dialysis catheter, initial encounter; Z94.0 Kidney transplant status; Z94.83 Pancreas transplant status; D63.1 Anemia in chronic kidney disease; Z79.82 Long term (current) use of aspirin; Z99.2 Dependence on renal dialysis; Y82.8 Other medical devices associated with adverse incidents; Z87.891 Personal history of nicotine dependence
CPT/HCPCS: 36415; 71045; 80048; 80053; 85025; 86706; 86803; 87340; 87522; 90935; 93005; 96365; 96366; 96372; 96375; 99213; 99291; J0360; J0881; J1644; J2404; J2405; J3490; J7050; J7512; J9999; Q3014; Q5105